=== PATIENT | female | born 1960 | race Caucasian/White ===

== ENCOUNTER → 2019-12-12 12:23 | Outpatient (BNVA) | payer MEDICARE, MEDICAID, SELFPAY | PROVIDERS: Family Provider Nurse Practitioner; PCP Nurse Practitioner; Visit Provider Nurse Practitioner | DX: E03.8 Other specified hypothyroidism (principal) | CPT/HCPCS: 84443 ==

== ENCOUNTER → 2020-02-24 11:55 | Outpatient (BNVA) | payer MEDICARE, MEDICAID, SELFPAY | PROVIDERS: Family Provider Nurse Practitioner; PCP Nurse Practitioner; Visit Provider Nurse Practitioner | DX: E03.8 Other specified hypothyroidism (principal); M79.7 Fibromyalgia; I25.110 Atherosclerotic heart disease of native coronary artery with unstable angina pectoris; K21.9 Gastro-esophageal reflux disease without esophagitis | CPT/HCPCS: 80053; 80061; 84443 ==

== ENCOUNTER 2020-03-12 11:01 | Emergency (ER) | payer MEDICARE, MEDICAID, SELFPAY ==
[2020-03-12 11:12] VITALS: BP 126/75; PULSE 78; RESP 16; TEMP 37.2; O2SAT 93; BMI 22.8
[2020-03-12 11:22] VITALS: O2SAT 91
--- NOTE | 2020-03-12 11:22 | PC.NURSE ---
During triage, pt desaturated to 83% on room air, states she does not wear oxygen at home.
--- NOTE | 2020-03-12 11:30 | XR_ITS ---
WS: [id number] Chest with left rib detail, 03/12/2020 Clinical Data: fall, hypoxia Comparison: Portable chest, 07/03/2019 Findings: The lungs show no nodules, masses, or effusions. The heart is normal. No pneumonia or pneumothorax is seen. There are bilateral pedicle screws and Hered[place] rods extending from T5 into the lumbar vertebral le geraldine. The ribs are intact. No rib fractures seen. No subcutaneous emphysema is present. There is a large of fecal material throughout the colon. XR/XR ribs LT mn 3V w CXR1V [id number] Impression: Negative chest with left rib detail.
--- NOTE | 2020-03-12 11:30 | XR_ITS ---
WS: [id number] Left hip, AP and frog leg views, 03/12/2020 Clinical Data: fall Comparison: AP pelvis, 01/09/2011 Findings: No fractures or dislocations are seen. The hip joint is intact. The soft tissues are not remarkable. The adjacent pelvis is normal. XR/XR hip LT 2-3V wo/w pel* [id number] Impression: Negative left hip.
--- NOTE | 2020-03-12 11:30 | XR_ITS ---
WS: [id number] Left knee, 3 views, 03/12/2020 Clinical Data: fall Comparison: None. Findings: No fractures or dislocations are seen. There is narrowing of the lateral joint compartment with small spurs of the lateral tibial plateau and lateral femoral condyle. The patella is intact. The soft tis sues are unremarkable. XR/XR knee LT 3V* [id number] Impression: Negative for left knee fracture.
--- NOTE | 2020-03-12 11:31 | ECG_ITS ---
Measurements Intervals [place] Rate: 73 P: 42 WI: 160 QRS: -2 QRSD: 83 T: 35 QT: 366 QTc: 404 SINUS RHYTHM Compared to ECG 07/03/2019 05:46:41 No significant changes Electronically Signed On 03-12-2020 19:44:13 CDT by Haydee Simms M.D. [id number]
--- NOTE | 2020-03-12 11:34 | ED_ITS ---
HPI - Extremity Problem General: Chief complaint: Extremity Injury, Lower Stated complaint: fall/left knee injury Time Seen by Provider: 03/12/20 11:13 History of Present Illness: HPI Narrative: Patient is a 59 year old female presenting with a fall yesterday afternoon at home. She was sitting down with her walker and her left arm gave out - causing her to fall onto her left side. She landed on her knee and then fell onto her hip and left side. She doesn't think that she hit her head. She denies difficulty breathing and doesn't think she hit her ribs but complains of pain in her left breast. Her O2 sat on triage was 83% although she denies feeling short of breath. She has a history of fibromyalgia and chronic pain and takes norco. She took her normal dose this morning, and did take an extra one last night when she went to bed. She sees an orthopedist in [place] - Dr. Mast. She has chronic hip problems. MD Complaint: extremity pain, extremity swelling, joint swelling and joint pain Onset (ago): day(s) (1) Pain Consistency: constant Location: left, upper extremity, lower extremity and knee Quality: aching and constant Radiation: none Relieving factors: nothing Exacerbating factors: range of motion, weight bearing and walking Associated symptoms: Reports chest pain; Deny short of breath Review of Systems General: Reports: 10 or more systems reviewed and unremarkable except in HPI and below Const: Reports: body aches (chronic due to fibromyalgia) Card: Reports: chest pain Resp: Denies: dyspnea, productive cough or non-productive cough GI: Denies: abdominal pain, nausea or vomiting Skin/Breast: Reports: breast pain Neuro: Reports: weakness in extremities (chronic, unchanged) and difficulty walking (chronic, more difficulty now since the fall); Denies: headache(s) PFS ED PFSH: Medical History Adult onset hypothyroidism 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 Fibromyalgia muscle pain Gastric reflux Hypotension, unspecified Mixed hyperlipidemia Neuropathic pain of both legs Osteopenia of multiple sites Vitamin D deficiency Surgical History History of back surgery History of cholecystectomy History of hysterectomy History of tonsillectomy Family History Other Arthritis Diabetes Hypertension Thyroid condition Social History Smoking and tobacco status: current every day smoker Second hand smoke exposure: Yes Smoking risk assessment/counseling performed?: No Alcohol intake: never Desire information about alcohol rehabilitation?: No Counseling given: No Desire information about substance/drug rehabilitation?: No Counseling given: No Lives independently: No Housing: House Marital status: Current occupational status: disabled History of recent travel: No Current gender identity: Female Physical Exam Const: COMMON NORMALS: no acute distress, average body habitus, patient oriented x3, no limitations and alert HENMT: COMMON NORMALS: atraumatic HEAD & SCALP: normal to inspection and atraumatic FACE & SINUS: normal facial exam Eye: GENERAL EYE: appearance normal, both eyes and all related structures Neck/C-Spine: COMMON NORMALS: full ROM, supple and no JVD Lymph: LYMPHATIC: No lymphedema Chest: CHEST: Yes localized rib tenderness with anteroposterior compression, Yes tenderness (left upper anterior and lateral ribs) rib and No Ecchymosis present BREAST/AXILLA INSPECTION: No abnormal inspection of the breast Resp: COMMON NORMALS: normal respiratory effort, No retractions, No use of accessory muscles, clear to auscultation bilaterally and percussion normal AUSCULTATION: clear to auscultation bilaterally PERCUSSION: percussion normal Cardio: COMMON NORMALS: no JVD, regular rate, regular rhythm and No murmurs present (Cardio) RATE: regular rate RHYTHM: regular rhythm GI: COMMON NORMALS: Normal to inspection, nondistended, normoactive bowel sounds present, Soft to palpation and non-tender PALPATION: Yes Soft to palpation Back/Pelvis: COMMON NORMALS: thoracic and lumbar spine normal to inspection Extremity: LEFT UPPER EXTREMITY: Yes shoulder joint Left shoulder joint: Yes ROM (normal) and Yes upper arm (abrasion, contusion mid humerus, laterally) LEFT LOWER EXTREMITY: Yes hip joint Left hip: Yes palpation (tender diffusely) and Yes ROM (normal - some pain, but patient notes chronic hip pain) and Yes knee joint (abrasion anterior knee - diffuse swelling down to the foot) Left knee: Yes ROM (painful, limited) and Yes neurovascular exam (can't palpate pulses, but warm foot, good cap refill) Neuro: COMMON NORMALS: patient oriented x3 SENSORIUM/ORIENTATION: Yes alert Course ED course: Patient presenting for a fall at home. She has pain in her left knee, left hip, left humeral area. She also has pain and tenderness on the left side of her chest. Because of the chest pain EKG, troponin, chest x-ray were done. There is no sign of fracture or cardiac ischemia. She was hypoxic on room air with a sat of 83%. Throughout her stay I tried turning off the oxygen and she again dropped into the 80s. During these episodes she denied any dyspnea. I tried to order a VQ scan to look for possible blood clot as she has been complaining about leg swelling. She refused this stating that she does not feel short of breath and does not want any more testing. She repeated back to me that I was concerned that she had a low oxygen level without a good explanation for it. She repeated back to me that she understood she could go home and from this. She continued to not want any testing. She is alert and competent to make her own decisions. She signed out AGAINST MEDICAL ADVICE. She also understands that she is welcome to return at any time. Vital Signs: Vital signs: Vital Signs Temperature 98.9 F 03/12/20 11:12 Pulse Rate 77 03/12/20 14:58 Respiratory Rate 18 03/12/20 14:58 Blood Pressure 105/71 03/12/20 14:58 Pulse Oximetry 94 03/12/20 14:58 MDM - Extremity (Nontraumatic) Lab Data: Labs: Lab Results 03/12/20 03/12/20 03/12/20 Range/Units 11:43 11:43 11:43 WBC 8.7 (4.0-10.0) 10^3/ uL RBC 4.52 (4.1-5.3) 10^6/u L Hgb 13.2 (11.5-15.3) g/dL Hct 42.9 (37.0-47.0) % MCV 94.9 (81-99) fL MCH 29.2 (28.0-34.0) pg MCHC 30.8 (30.0-36.0) g/dL RDW 15.1 (12.1-15.1) % Plt Count 211 (130-400) 10^3/c mm MPV 10.8 H (7.4-10.4) fL Neut % (Auto) 74.2 % Lymph % (Auto) 15.2 % [place] % (Auto) 8.9 % Eos % (Auto) 0.9 % Baso % (Auto) 0.5 % Neut # (Auto) 6.5 (1.8-7.7) 10^3/u L Lymph # (Auto) 1.3 (0.8-4.8) 10^3/u L [place] # (Auto) 0.8 (0.2-0.9) 10^3/u L Eos # (Auto) 0.1 (0.0-0.8) 10^3/u L Baso # (Auto) 0.0 (0.0-0.1) 10^3/u L Nucleated RBC % (a uto) 0 % Nucleated RBCs # 0.0 /100WBC Sodium 138 (136-145) mmol/L Potassium 4.8 (3.5-5.1) mmol/L Chloride 102 (98-107) mmol/L Carbon Dioxide 25 (22-29) mmol/L Anion Gap 15.8 (5-19) BUN 15 (6-20) mg/dL Creatinine 0.8 (0.5-0.9) mg/dL GFR Calculation 73.7 L (90-130) mL/min Glucose 88 (65-115) mg/dL Calculated Osmolal ity 282 L (285-295) mOsm/k g Calcium 8.7 (8.5-10.5) mg/dL Total Bilirubin 0.4 (0.15-1.2) mg/dL AST 25 (0-32) U/L ALT 13 (0-33) U/L Alkaline Phosphata se 48 (35-105) IU/L Troponin T Baselin e 23 H (0-10) ng/mL Total Protein 6.2 L (6.6-8.7) g/dL Albumin 3.8 (3.5-5.2) g/dL Globulin 2.4 (1.3-4.6) g/dL EKG Data^: EKG 1: EKG interpretation date: 05/18/20 EKG interpretation time: 12:04 Interpretation: NSR 73, no ST changes, normal intervals and axis Discharge Plan Discharge Patient Disposition: Left Against Medical Advice Clinical Impression: Hypoxia Contusion of knee, left Qualifiers: Encounter type: initial encounter Qualified Code(s): S80.02XA - Contusion of left knee, initial encounter Contusion of left arm Qualifiers: Encounter type: initial encounter Qualified Code(s): S40.022A - Contusion of left upper arm, initial encounter Condition: Stable Prescriptions: No Action gabapentin 800 mg tablet 800 mg PO TID RF: 0 meclizine 12.5 mg tablet 12.5 mg PO BID PRN (Reason: unknown) RF: 0 potassium chloride 10 mEq capsule, extended release 10 meq PO DAILY RF: 0 magnesium oxide 250 mg magnesium tablet 250 mg PO DAILY RF: 0 hydrocodone-acetaminophen 10-325 mg tablet 1 tab PO Q4H PRN (Reason: Pain) RF: 0 cholecalciferol (vitamin D3) 1,000 unit capsule 1,000 unit PO DAILY RF: 0 baclofen 10 mg tablet 20 mg PO QID PRN (Reason: Spasms) RF: 0 fentanyl 75 mcg/hr patch 72 hour 1 patch TRANSDERMA Q72H RF: 0 diphenhydramine HCl [Benadryl Allergy] 25 mg tablet 75 mg PO BID PRN (Reason: unknown) RF: 0 levothyroxine 50 mcg tablet 50 mcg PO DAILY Qty: 30 RF: 0 paroxetine HCl 20 mg tablet 20 mg PO DAILY Qty: 30 RF: 0 carvedilol 3.125 mg tablet 3.125 mg PO BID Qty: 60 RF: 0 furosemide 20 mg tablet 20 mg PO QAM Qty: 30 RF: 5 fenofibrate micronized 134 mg capsule 134 mg PO DAILY Qty: 90 RF: 0 cyanocobalamin (vitamin B-12) 1,000 mcg/mL solution See Rx Instructions .ROUTE .COMPLEX RF: 0 Fiorinal 50-325-40 mg capsule 1 cap PO PRN RF: 0 potassium gluconate 595 mg (99 mg) Tablet 595 mg PO TID RF: 0 Discharge Orders: Discharge Order (Routine); Ordered 03/12/20 Ordered By: Serena Das Referrals: Hitesh Pal, [facility] [Primary Care Provider] - Discharge Diet: Usual diet Discharge Activity: Resume usual activity Patient Instructions: Hypoxia (ED) Activity Restrictions/Additional Instructions: Please return to the ED if you have shortness of breath or any other new or concerning symptoms. Discharge Date/Time: 03/12/20 14:59 Coding Level of Care Code ED [place] [employer] for Antonia Medina Exam Comprehensive
[2020-03-12 11:48] LABS: Basophils % 0.5 %; Eosinophils # 0.1 10^3/uL (0.0-0.8); Eosinophils % 0.9 %; Hematocrit 42.9 % (37.0-47.0); Hemoglobin 13.2 g/dL (11.5-15.3); Lymphocytes # 1.3 10^3/uL (0.8-4.8); Lymphocytes % 15.2 %; Mean Corpuscular HGB Conc 30.8 g/dL (30.0-36.0); Mean Corpuscular Hemoglobin 29.2 pg (28.0-34.0); Mean Corpuscular Volume 94.9 fL (81-99); Mean Platelet Volume 10.8 fL (7.4-10.4); Monocytes # 0.8 10^3/uL (0.2-0.9); Monocytes % 8.9 %; Neutrophils # 6.5 10^3/uL (1.8-7.7); Neutrophils % 74.2 %; Nucleated Red Blood Cells % 0 %; Platelet Count 211 10^3/cmm (130-400); Red Blood Count 4.52 10^6/uL (4.1-5.3); Red Cell Distribution Width 15.1 % (12.1-15.1); White Blood Count 8.7 10^3/uL (4.0-10.0)
[2020-03-12 12:12] LABS: Alanine Aminotransferase 13 U/L (0-33); Albumin Level 3.8 g/dL (3.5-5.2); Alkaline Phosphatase 48 IU/L (35-105); Anion Gap 15.8 (5-19); Blood Urea Nitrogen 15 mg/dL (6-20); Calcium 8.7 mg/dL (8.5-10.5); Carbon Dioxide 25 mmol/L (22-29); Chloride 102 mmol/L (98-107); Globulin 2.4 g/dL (1.3-4.6); Glomerular Filtration Rate 73.7 mL/min (90-130); Glucose 88 mg/dL (65-115); Osmolality Calculated 282 mOsm/kg (285-295); Potassium 4.8 mmol/L (3.5-5.1); Sodium 138 mmol/L (136-145); Total Bilirubin 0.4 mg/dL (0.15-1.2); Total Protein 6.2 g/dL (6.6-8.7)
[2020-03-12 12:14] LABS: Troponin(5th) Baseline 23 ng/mL (0-10)
[2020-03-12 12:28] LABS: Aspartate Amino Transferase 25 U/L (0-32)
[2020-03-12 14:58] VITALS: BP 105/71; PULSE 77; RESP 18; O2SAT 94
--- NOTE | 2020-03-12 17:31 | ECG_ITS ---
Measurements Intervals [place] Rate: 73 P: 47 MD: 152 QRS: -11 QRSD: 85 T: 39 QT: 372 QTc: 412 SINUS RHYTHM POSSIBLE INFERIOR MYOCARDIAL INFARCTION , PROBABLY OLD [30 ms Q WAVE IN II/aVF] Compared to ECG 07/03/2019 05:46:41 Myocardial infarct finding now present Electronically Signed On 03-12-2020 20:16:59 CDT by Haydee Simms M.D. [id number]
== END 2020-03-12 14:59 | disposition left against medical advice (07) ==
PROVIDERS: Emergency Provider Emergency Medicine; PCP Nurse Practitioner
DX: S80.02XA Contusion of left knee, initial encounter (principal); S40.022A Contusion of left upper arm, initial encounter; R09.02 Hypoxemia; Z53.21 Procedure and treatment not carried out due to patient leaving prior to being seen by health care provider; I25.110 Atherosclerotic heart disease of native coronary artery with unstable angina pectoris; E78.2 Mixed hyperlipidemia; F17.210 Nicotine dependence, cigarettes, uncomplicated; W19.XXXA Unspecified fall, initial encounter
CPT/HCPCS: 12345; 36415; 71101; 73502; 73562; 80053; 84484; 85025; 93005; 99281; 99283

== ENCOUNTER 2020-05-18 14:41 | Outpatient (CLI) | payer MEDICARE, MEDICAID, SELFPAY ==
--- NOTE | 2020-05-18 15:00 | CT_ITS ---
WS: [id number] CT SINUSES TECHNIQUE: Noncontrast CT of the paranasal sinuses with coronal and sagittal reformatted images. CLINICAL INFORMATION: nasal congestion COMPARISON: None. DLP: 361.[address] scans at [facility] use at least one of these dose optimization techniques: automat ed exposure control; mA and/or kV adjustment per patient size (includes targeted exams where dose is matched to clinical indication); or iterative reconstruction. FINDINGS: Mild left to right nasal septal deviation measuring 4 mm. Paranasal sinuses are well aerated. Trace m ucosal thickening along the ostiomeatal units bilaterally. Mild narrowing of the infundibulum bilater ally. Small left greater than right stef bullosa. Frontal sinuses are well aerated. Mild mucosal th ickening ethmoid air cells. Sphenoid sinuses are well aerated. Mastoid air cells are well aerated. Partially visualized intracranial contents are normal. Normal posterior nasopharynx. CT/CT sinus wo con* [id number] IMPRESSION: 1. Paranasal sinuses are well aerated. 2. Mild narrowing of the ostiomeatal units with mild mucosal thickening. 3. Mild left to right nasal septal deviation.
--- NOTE | 2020-05-18 15:15 | CT_ITS ---
WS: [id number] CT HEAD TECHNIQUE: Noncontrast CT of the head obtained from the skullbase to the vertex. CLINICAL INFORMATION: right skull pain COMPARISON: CT 9 801 DLP: 992.[address] scans at use at least one of these dose optimization techniques: automat ed exposure control; mA and/or kV adjustment per patient size (includes targeted exams where dose is matched to clinical indication); or iterative reconstruction. FINDINGS: No evidence of intracranial hemorrhage or mass effect. Ventricular system and basal cisterns are goodson nt. Mild small vessel changes with mild parenchymal volume loss. No extra-axial fluid collections. No evidence of mass or mass effect. Normal draper-white differentiation. Paranasal sinuses and mastoid air cells are well aerated. .Normal visualized soft tissues. CT/CT head wo con* [id number] IMPRESSION: 1. No evidence of intracranial hemorrhage or mass effect. 2. Mild small vessel changes. Mild parenchymal volume loss. 3. Mild lobulation along the parietal calvarium likely corresponds to palpable findings. This is benign and incidental 4. No acute intracranial findings.
== END 2020-05-18 14:42 | disposition home or self-care (01) ==
LOC: RADWPI 14:45
PROVIDERS: PCP Nurse Practitioner; Visit Provider Nurse Practitioner
DX: R51 Headache (principal); R09.81 Nasal congestion; J34.2 Deviated nasal septum
CPT/HCPCS: 70450; 70486

== ENCOUNTER 2020-08-08 14:25 | Outpatient (CLI) | payer MEDICARE, MEDICAID, SELFPAY ==
--- NOTE | 2020-08-08 14:45 | CT_ITS ---
WS: [id number] CT CERVICAL SPINE TECHNIQUE: Noncontrast CT of the cervical spine with coronal and sagittal reformatted images. CLINICAL INFORMATION: Neck and upper back pain COMPARISON: None. DLP: 1355.[address] scans at [facility] use at least one of these dose optimization techniques: automat ed exposure control; mA and/or kV adjustment per patient size (includes targeted exams where dose is matched to clinical indication); or iterative reconstruction. FINDINGS: Exaggeration of the normal cervical lordosis. Normal C1-2 articulation. Mild pannus formation at the cranial cervical junction. No high-grade central canal stenosis. Disc bulging worse at C5-C6 and C6-C 7. C2-C3: Normal. C3-C4: Normal. C4-C5: Mild disc osteophytic ridging. Mild left and no significant right foraminal narrowing. Mild fa cet arthropathy. C5-C6: Disc osteophyte complex with endplate ridging. Moderate facet arthropathy. Moderate to severe left and moderate right bony foraminal narrowing. Mild central canal stenosis. C6-C7: Left pericentral shallow protrusion. Mild central canal stenosis. Mild left and no significant right foraminal narrowing. Mastoid air cells are well aerated. Normal visualized soft tissues. C7-T1: No significant disc bulging. Spinal canal and foramen are patent. Visualized posterior nasopharynx: Normal. Prevertebral soft tissues: Normal. CT/CT cervical spin wo con* [id number] IMPRESSION: 1. Exaggeration of the normal cervical lordosis. 2. Mild central canal stenosis C5-C6 and C6-C7 3. Moderate to severe left C5-C6 and moderate right bony foraminal narrowing. 4. Tiny left pericentral protrusion C6-7 with mild central canal stenosis and mild left foraminal narrowing. 5. Mild to moderate facet arthropathy C4-C5 and C5-C6.
== END 2020-08-08 14:26 | disposition home or self-care (01) ==
LOC: RADWPI 14:28
PROVIDERS: PCP Nurse Practitioner; Visit Provider Nurse Practitioner
DX: M62.838 Other muscle spasm (principal); M48.02 Spinal stenosis, cervical region; M12.88 Other specific arthropathies, not elsewhere classified, other specified site
CPT/HCPCS: 72125

== ENCOUNTER 2020-10-13 12:05 | Emergency (ER) | payer MEDICARE, MEDICAID, SELFPAY ==
[2020-10-13 12:10] VITALS: BP 158/90; PULSE 72; RESP 18; TEMP 36.9; O2SAT 97; BMI 22.5
[2020-10-13] MEDS: sodium chloride 0.9% 1,000 ML 999 ML IV (13:16)
--- NOTE | 2020-10-13 13:20 | W.ED.DIZZY ---
HPI - Dizziness General: Chief Complaint: Dizziness Stated Complaint: STATES HAS PRESSURE ON HER SKULL Time Seen by Provider: 10/13/20 12:28 History of Present Illness: HPI Narrative: 60-year-old female presents to the emergency room with complaints of head pressure and dizziness. Initially she states been going last 3 days but is actually been going on for the last 6 months intermittently she has some blurring of vision in her right eye as well. She has been seen by this by the nurse practitioner she usually sees and has had a CT of her head early on which was negative. MD elicited complaint: dizziness and lightheadedness Onset (ago): month(s) Timing: gradual onset Severity: moderate Description: sense of movement, lightheadedness and off-balance History of similar symptoms: Yes Exacerbating factors: change in body position Relieving factors: remaining still Associated symptoms: Denies change in hearing, chest pain, chills, cough, diaphoresis, ear discharge, ear pressure, fevers/chills, headache(s), malaise, nausea, nasal congestion, palpitations, rash, short of breath, syncope, tinnitus, vomiting or weakness Associated neuro symptoms: Deny confusion, difficulty speaking, dysphagia, diplopia, extremity weakness, facial numbness, facial weakness, gait changes, numbness in extremities or visual changes Review of Systems Const: Denies: chills, malaise or diaphoresis ENMT: Denies: ear discharge, change in hearing, tinnitus or nasal congestion Card: Denies: chest pain, palpitations or syncope GI: Denies: nausea, vomiting or dysphagia Neuro: Denies: headache(s), numbness in extremities or confusion PFSH ED PFSH: Medical History Adult onset hypothyroidism Chronic bilateral low back pain with bilateral 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 Essential (primary) hypertension Fibromyalgia muscle pain Gastric reflux Hypotension, unspecified Mixed hyperlipidemia Neuropathic pain of both legs Osteopenia of multiple sites Vitamin B12 deficiency Vitamin D deficiency Surgical History History of back surgery History of cholecystectomy History of hysterectomy History of tonsillectomy Family History Other Arthritis 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 Diabetes Hypertension Thyroid condition Social History Smoking and tobacco status: current every day smoker Second hand smoke exposure: Yes Smoking risk assessment/counseling performed?: Yes Alcohol intake: never Desire information about alcohol rehabilitation?: No Counseling given: No Desire information about substance/drug rehabilitation?: No Counseling given: No Adopted: No Caregiver/support person: Yes Lives independently: No Household members: family Housing: House Marital status: service: No Current occupational status: disabled History of recent travel: No Current gender identity: Female Physical Exam Const: COMMON NORMALS: no acute distress GENERAL APPEARANCE: cooperative and comfortable ORIENTATION/CONSCIOUSNESS: Yes awake, Yes oriented to person, Yes oriented to place and Yes oriented to time HENMT: COMMON NORMALS: normocephalic, atraumatic and hearing grossly normal bilaterally HEAD & SCALP: normocephalic and atraumatic Neck/C-Spine: COMMON NORMALS: no JVD Resp: COMMON NORMALS: normal respiratory effort, No retractions, No use of accessory muscles and clear to auscultation bilaterally AUSCULTATION: clear to auscultation bilaterally Cardio: COMMON NORMALS: no JVD, regular rate, regular rhythm and No murmurs present (Cardio) RATE: regular rate RHYTHM: regular rhythm GI: COMMON NORMALS: Soft to palpation and No hepatosplenomegaly present AUSCULTATION: Yes normoactive bowel sounds PALPATION: Yes Soft to palpation, No Tenderness to palpation present (GI), No Guarding due to palpation present (GI) and Yes No hepatosplenomegaly present Neuro: SENSORIUM/ORIENTATION: Yes oriented to person, Yes oriented to place and Yes oriented to time Skin: COMMON NORMALS: no rashes or lesions noted GENERAL SKIN EXAM: no rashes or lesions noted Course Vital Signs: Vital signs: Vital Signs Temperature 98.4 F 10/13/20 12:10 Pulse Rate 100 10/13/20 16:24 Respiratory Rate 19 H 10/13/20 16:24 Blood Pressure 153/82 10/13/20 16:24 Pulse Oximetry 92 10/13/20 16:24 MDM - Dizziness MDM Narrative: Medical decision making narrative: Patient has had this issue for months patient reports almost 6 months. She has dizziness and sometimes some visual disturbances. She presented saying she wanted a second opinion. She declined to allow us to do some of the testing we recommended. Evaluation in the emergency room is incomplete does not appear she has an acute neurologic event going on at this time will refer her to neurology as an outpatient. Lab Data: Labs: Lab Results 10/13/20 10/13/20 Range/Units 13:10 13:10 WBC 5.3 (4.0-10.0) 10^3/ uL RBC 5.00 (4.1-5.3) 10^6/u L Hgb 14.9 (11.5-15.3) g/dL Hct 47.5 H (37.0-47.0) % MCV 95.0 (81-99) fL MCH 29.8 (28.0-34.0) pg MCHC 31.4 (30.0-36.0) g/dL RDW 14.0 (12.1-15.1) % Plt Count 190 (130-400) 10^3/c mm MPV 11.9 H (7.4-10.4) fL Neut % (Auto) 63.0 % Lymph % (Auto) 26.5 % [place] % (Auto) 8.6 % Eos % (Auto) 1.3 % Baso % (Auto) 0.4 % Neut # (Auto) 3.36 (1.8-7.7) 10^3/u L Lymph # (Auto) 1.4 (0.8-4.8) 10^3/u L [place] # (Auto) 0.5 (0.2-0.9) 10^3/u L Eos # (Auto) 0.1 (0.0-0.8) 10^3/u L Baso # (Auto) 0.0 (0.0-0.1) 10^3/u L Nucleated RBC % (a uto) 0 % Nucleated RBCs # 0.0 /100WBC Sodium 137 (136-145) mmol/L Potassium 4.1 (3.5-5.1) mmol/L Chloride 100 (98-107) mmol/L Carbon Dioxide 30 H (22-29) mmol/L Anion Gap 11.1 (5-19) BUN 14 (6-20) mg/dL Creatinine 0.7 (0.5-0.9) mg/dL GFR Calculation 85.6 L (90-130) mL/min Glucose 79 (65-115) mg/dL Calculated Osmolal ity 283 L (285-295) mOsm/k g Calcium 9.4 (8.5-10.5) mg/dL Magnesium 2.0 (1.7-2.3) mg/dL Total Bilirubin 0.3 (0.15-1.2) mg/dL AST 23 (0-32) U/L ALT 14 (0-33) U/L Alkaline Phosphata se 63 (35-105) IU/L Creatine Kinase 33 (26-192) U/L Total Protein 6.6 (6.6-8.7) g/dL Albumin 4.0 (3.5-5.2) g/dL Globulin 2.6 (1.3-4.6) g/dL TSH 1.18 (0.27-4.20) uIU/ mL Discharge Plan Discharge Patient Disposition: Home Clinical Impression: Dizziness, Essential (primary) hypertension, Alteration in vision Condition: Stable Prescriptions: New meclizine 25 mg tablet 25 mg PO QID PRN (Reason: dizziness) Qty: 30 RF: 0 No Action gabapentin 800 mg tablet 800 mg PO TID@08,15,22 RF: 0 meclizine 12.5 mg tablet 12.5 mg PO BID PRN (Reason: unknown) RF: 0 magnesium oxide 250 mg magnesium tablet 250 mg PO DAILY@1500 RF: 0 hydrocodone-acetaminophen 10-325 mg tablet 1 tab PO Q4H PRN (Reason: Pain) RF: 0 cholecalciferol (vitamin D3) 1,000 unit capsule 1,000 unit PO DAILY@0800 RF: 0 baclofen 10 mg tablet 20 mg PO QID PRN (Reason: Spasms) RF: 0 fentanyl 75 mcg/hr patch 72 hour 1 patch TRANSDERMA Q72H RF: 0 diphenhydramine HCl [Benadryl Allergy] 25 mg tablet 75 mg PO BID PRN (Reason: unknown) RF: 0 cyanocobalamin (vitamin B-12) 1,000 mcg/mL solution See Rx Instructions .ROUTE .COMPLEX Qty: 1 RF: 8 (DME) BD Luer-Rae Syringe 3 mL 25 gauge x 1 syringe See Rx Instructions .ROUTE .MEDSUPPLY Qty: 5 RF: 0 carvedilol 3.125 mg tablet 3.125 mg PO BID@0800,2200 RF: 0 fenofibrate micronized 134 mg capsule 134 mg PO DAILY@0800 RF: 0 furosemide 20 mg tablet 20 mg PO DAILY@0800 RF: 0 Flonase Allergy Relief 50 mcg/actuation spray,suspension 2 spray INTRANASAL DAILY@2000 RF: 0 levothyroxine 50 mcg tablet 50 mcg PO DAILY@1500 RF: 0 paroxetine HCl 30 mg tablet 30 mg PO DAILY@0800 RF: 0 Benicar 20 mg tablet 20 mg PO DAILY@0800 RF: 0 rgvwqfqmcl-[id number]-ayzztppu [Fiorinal] 50-325-40 mg capsule 1 cap PO PRN RF: 0 potassium gluconate 595 mg (99 mg) Tablet 595 mg PO TID@08,15,22 RF: 0 Discharge Orders: Discharge ED (Routine); Ordered 10/13/20 Ordered By: Juancarlos Robles Referrals: Gloria Mei MD [Physician] - (Dizziness with visual disturbances intermittently 6 months) Activity Restrictions/Additional Instructions: Your evaluated for dizziness and visual changes. Evaluation today was incomplete since you declined some test. Will refer you to neurology for further evaluation as an outpatient. You were given meclizine to use as needed to alleviate symptoms. You should follow-up with your primary care doctor to reevaluate your blood pressure as an outpatient. Coding Level of Care Code ED Business Solution Analyst for Chg Fwd Exam Detailed
--- NOTE | 2020-10-13 13:21 | CTR_ITS ---
PROCEDURE INFORMATION: Exam: CT Head Without Contrast Exam date and time: 10/13/2020 1:43 PM Age: 60 years old Clinical indication: Other: Visual distubance; Prior surgery TECHNIQUE: Imaging protocol: Computed tomography of the head without contrast. Radiation optimization: All CT scans at this facility use at least one of these dose optimization techniques: automated exposure control; mA and/or kV adjustment per patient size (includes targeted exams where dose is matched to clinical indication); or iterative reconstruction. COMPARISON: CT head wo con* [id number] 05/18/2020 3:18 PM RADIATION DOSE METRICS: Total DLP (mGy-cm): 872.9 FINDINGS: Brain: Mild volume loss and white matter disease are identified. There is no acute infarct or edema. No hemorrhage. Cerebral ventricles: No ventriculomegaly. Bones/joints: Unremarkable. No acute fracture. Paranasal sinuses: Visualized sinuses are unremarkable. No fluid levels. Mastoid air cells: Visualized mastoid air cells are well aerated. Soft tissues: Unremarkable. CT/CT head wo con* [id number] IMPRESSION: There are no acute concerning abnormalities. Radiation Dose CTDIVOL = (mGy): DLP = 872.9 (mGy-cm)
[2020-10-13 13:29] VITALS: BP 158/87; PULSE 66; RESP 20; O2SAT 98
--- NOTE | 2020-10-13 13:29 | XRR_ITS ---
PROCEDURE INFORMATION: Exam: XR Chest, 1 View Exam date and time: 10/13/2020 1:49 PM Age: 60 years old Clinical indication: Cough; Additional info: Dyspnea/cough TECHNIQUE: Imaging protocol: XR of the chest Views: 1 view. COMPARISON: CR XR ribs LT mn 3V w CXR1V [id number] 03/12/2020 12:23 PM FINDINGS: Lungs: Unremarkable. No consolidation. Pleural space: Unremarkable. No pleural effusion. No pneumothorax. Heart/Mediastinum: Unremarkable. No cardiomegaly. Bones/joints: There are posterior fusion rods in the thoracic spine. XR/XR chest 1V portable [id number] IMPRESSION: There are no acute concerning abnormalities.
[2020-10-13 13:30] VITALS: BP 147/80; BP 156/87; BP 157/89; PULSE 67; PULSE 69; PULSE 70
[2020-10-13 14:30] LABS: Basophils % 0.4 %; Eosinophils # 0.1 10^3/uL (0.0-0.8); Eosinophils % 1.3 %; Hematocrit 47.5 % (37.0-47.0); Hemoglobin 14.9 g/dL (11.5-15.3); Lymphocytes # 1.4 10^3/uL (0.8-4.8); Lymphocytes % 26.5 %; Mean Corpuscular HGB Conc 31.4 g/dL (30.0-36.0); Mean Corpuscular Hemoglobin 29.8 pg (28.0-34.0); Mean Platelet Volume 11.9 fL (7.4-10.4); Monocytes # 0.5 10^3/uL (0.2-0.9); Monocytes % 8.6 %; Neutrophils # 3.36 10^3/uL (1.8-7.7); Nucleated Red Blood Cells % 0 %; Platelet Count 190 10^3/cmm (130-400); White Blood Count 5.3 10^3/uL (4.0-10.0)
[2020-10-13 15:06] LABS: Alanine Aminotransferase 14 U/L (0-33); Alkaline Phosphatase 63 IU/L (35-105); Anion Gap 11.1 (5-19); Aspartate Amino Transferase 23 U/L (0-32); Blood Urea Nitrogen 14 mg/dL (6-20); Calcium 9.4 mg/dL (8.5-10.5); Carbon Dioxide 30 mmol/L (22-29); Chloride 100 mmol/L (98-107); Creatine Phosphokinase 33 U/L (26-192); Globulin 2.6 g/dL (1.3-4.6); Glomerular Filtration Rate 85.6 mL/min (90-130); Glucose 79 mg/dL (65-115); Osmolality Calculated 283 mOsm/kg (285-295); Potassium 4.1 mmol/L (3.5-5.1); Sodium 137 mmol/L (136-145); Thyroid Stimulating Hormone 1.18 uIU/mL (0.27-4.20); Total Bilirubin 0.3 mg/dL (0.15-1.2); Total Protein 6.6 g/dL (6.6-8.7)
[2020-10-13 15:29] VITALS: BP 153/82; PULSE 100; RESP 19; O2SAT 92
[2020-10-13 16:24] VITALS: BP 153/82; PULSE 100; RESP 19; O2SAT 92
[2020-10-13 18:28] LABS: Free T4 Free Thyroxine 1.45 ng/dL (0.82-1.77)
== END 2020-10-13 16:24 | disposition home or self-care (01) ==
PROVIDERS: Emergency Provider Family Medicine; PCP Nurse Practitioner
DX: R42 Dizziness and giddiness (principal); H53.9 Unspecified visual disturbance; I10 Essential (primary) hypertension; I25.110 Atherosclerotic heart disease of native coronary artery with unstable angina pectoris; E78.2 Mixed hyperlipidemia; F17.210 Nicotine dependence, cigarettes, uncomplicated
CPT/HCPCS: 12345; 70450; 71045; 80053; 82550; 83735; 84439; 84443; 85025; 96361; 96374; 99283; 99284; J2405; J7030

== ENCOUNTER → 2020-10-17 11:07 | Outpatient (BNVA) | payer MEDICARE, MEDICAID, SELFPAY | PROVIDERS: PCP Nurse Practitioner; Visit Provider Nurse Practitioner | DX: I10 Essential (primary) hypertension (principal) | CPT/HCPCS: 80053; 80061; 84443 ==

== ENCOUNTER 2021-01-21 11:46 | Outpatient (CLI) | payer MEDICARE, MEDICAID, SELFPAY ==
--- NOTE | 2021-01-21 12:00 | MM_ITS ---
WS: [id number] BILATERAL SCREENING DIGITAL MAMMOGRAM WITH CAD HISTORY: Z12.39 - Encounter for other screening for malignant neoplasm of breast COMPARISON: 11/19/2016 and 11/02/2012 and 10/23/2016 Bilateral CC and MLO views submitted. Computer aided detection analyzed. Breast composition: There are scattered areas of fibroglandular density. No suspicious masses, microc alcifications or architectural distortion. Asymmetry in the anterior LEFT breast has been stable over multiple years. There is a soft tissue nodule measuring 1 cm the central calcification in the upper- outer quadrant of the LEFT breast which is also stable. Benign calcification RIGHT breast. MM/[place] [id number] IMPRESSION: BI-RADS: 2-Benign FOLLOW UP: 1 Year Follow-up
--- NOTE | 2021-01-21 12:30 | US_ITS ---
WS: [id number] THYROID ULTRASOUND (TI-RADS CRITERIA) History: Thyroid nodules. Technique: Ultrasound examination of the thyroid and adjacent soft tissues is performed. COMPARISON: 10/04/2015 FINDINGS: Right lobe: 4.2 cm x 1.3 cm x 1.1 cm. Volume: 2.9 cm3. Normal size gland. Several small hypoechoic nodules which are probably colloid cysts. The largest wit h a maximum diameter 4 mm. There are no suspicious nodules for which follow-up should be performed. Left lobe: 4.4 cm x 1.4 cm x 1.4 cm. Volume: 4.5 cm3. Normal size and echotexture. No significant or dominant nodules are present. Heterogeneously area in the inferior gland. NODULE: 1 Size: 1.2 x 0.9 x 1.3 cm Location: Mid LEFT Composition: Solid/almost completely solid (2) Echogenicity: Anechoic (0) Shape: Not taller than wide (0) Margins: Smooth (0) Echogenic foci: None (0) ACR TI-RADS total points: 2 ACR TI-RADS risk category: TR2 Isthmus: 0.2 cm. US/US thyroid [id number] Impression: TR2 Recommendation:No FNA or follow-up. Dominant nodule in LEFT thyroid is been present since at least 2013 without sig nificant increase in size. Yearly ultrasound evaluation can be performed. No FN A necessary at this time.
== END 2021-01-21 11:47 | disposition home or self-care (01) ==
LOC: RADSHAW 11:52
PROVIDERS: PCP Nurse Practitioner; Visit Provider Nurse Practitioner
DX: Z12.31 Encounter for screening mammogram for malignant neoplasm of breast (principal); E03.8 Other specified hypothyroidism; E04.1 Nontoxic single thyroid nodule
CPT/HCPCS: 76536; 77067

== ENCOUNTER → 2021-02-07 13:38 | Outpatient (BNVA) | payer MEDICARE, MEDICAID, SELFPAY | PROVIDERS: PCP Nurse Practitioner; Referring Provider Nurse Practitioner; Visit Provider Orthopaedic Surgery | DX: M54.42 Lumbago with sciatica, left side (principal); M54.41 Lumbago with sciatica, right side; G89.29 Other chronic pain; M41.9 Scoliosis, unspecified; T84.216A Breakdown (mechanical) of internal fixation device of vertebrae, initial encounter | CPT/HCPCS: 72070; 72100 ==

== ENCOUNTER 2021-02-28 13:41 | Outpatient (CLI) | payer MEDICARE, MEDICAID, SELFPAY ==
--- NOTE | 2021-02-28 14:00 | CT_ITS ---
WS: [id number] CT CERVICAL SPINE HISTORY: Z96.7 - Presence of other bone and tendon implants TECHNIQUE: Contiguous 2.5 mm axial imaging performed through the entire cervical spine. Sagittal and coronal reformats also performed. All CT scans at [facility] use at least one of these do se optimization techniques: automated exposure control; mA and/or kV adjustment per patient size (inc ludes targeted exams where dose is matched to clinical indication); or iterative reconstruction. DLP: 1355.52 mGy-cm. COMPARISON: 08/08/2020 Slight increase in the cervical lordosis. Less than 2 mm retrolisthesis of C2, C3 and C4. Mild disc s pace narrowing with desiccation at C5-6. No fractures. Facet joints are normally aligned. LEFT curvature of the cervical spine. C2-C3: Normal. C3-C4: Normal. C4-C5: Very minimal narrowing of the foramen. No significant stenosis. C5-C6: Mild osteophytic ridging with a shallow broad-based disc protrusion. Mild central and moderate LEFT foraminal stenosis. Moderate RIGHT foraminal stenosis. C6-C7: Shallow central disc protrusion with no stenosis. C7-T1: Normal. Soft tissues are normal. Lung apices are clear. CT/CT cervical spin wo con* [id number] IMPRESSION: 1. Increased cervical lordosis and LEFT scoliosis. Similar to the prior study. 2. No significant progression of stenosis since the prior study. 3. Mild central with moderate bilateral foraminal stenosis at C5-6. 4. Moderate degenerative disc disease at C5-6 with endplate osteophytes. No fr actures.
--- NOTE | 2021-02-28 14:15 | CT_ITS ---
WS: [id number] CT THORACIC SPINE HISTORY: Z96.7 - Presence of other bone and tendon implants TECHNIQUE: Contiguous 2.5 mm axial images are reviewed to thoracic spine. Images are reformatted in s agittal and coronal planes. All CT scans at [facility] use at least one of these dose opt imization techniques: automated exposure control; mA and/or kV adjustment per patient size (includes targeted exams where dose is matched to clinical indication); or iterative reconstruction. DLP: 1268.31 mGycm COMPARISON: MRI of thoracic spine 08/28/2017. CT thoracic spine 01/22/2017. Long segment bilateral pedicle screw and froylan fixation beginning at the T5 level noted extending into the lumbosacral region. There is a fracture noted on the localizer involving the RIGHT vertical froylan a t the L2-3 disc level. The RIGHT pedicle screw at T5 extends through the very superior endplate of T5 . There is a RIGHT T7 pedicle screw. No additional thoracic right-sided pedicle screws. Pedicle screw s on the LEFT at T5, T6 and T7. Bilateral posterior laminectomy defects extending from T7 to T12. There is increased lucency around the T5 pedicle screws bilaterally and also the RIGHT T7 pedicle scr ew. Similar to the prior study. There is extensive beam hardening artifact throughout the thoracic spine. No evidence for significant central or foraminal stenosis taking into consideration the limitations of this examination by the philip jimenez. There is significant RIGHT rotoscoliosis of the lumbar spine centered near the upper lumbar vertebral bodies. CT/CT thoracic spin wo con* [id number] IMPRESSION: 1. Severe thoracolumbar scoliosis. Rotoscoliosis centered near the upper lumba r vertebral bodies. 2. Extensive froylan and pedicle screw fixation from T5 into the lumbosacral spine . 3. Fracture within the RIGHT vertical froylan centered at the L2-3 level similar t o the prior thoracic spine radiograph of 02/07/2021. New since the lumbar CT of 03/15/2018. 4. Suspect loosening secondary to a lucency surrounding the T5 pedicle screws and the RIGHT T7 pedicle screw. 5. No central stenosis.
== END 2021-02-28 13:42 | disposition home or self-care (01) ==
PROVIDERS: PCP Nurse Practitioner; Visit Provider Orthopaedic Surgery
DX: Z96.7 Presence of other bone and tendon implants (principal); M41.85 Other forms of scoliosis, thoracolumbar region; S32.029A Unspecified fracture of second lumbar vertebra, initial encounter for closed fracture; S32.039A Unspecified fracture of third lumbar vertebra, initial encounter for closed fracture; X58.XXXA Exposure to other specified factors, initial encounter; M48.02 Spinal stenosis, cervical region; M50.322 Other cervical disc degeneration at C5-C6 level
CPT/HCPCS: 72125; 72128

== ENCOUNTER 2021-03-01 14:33 | Outpatient (CLI) | payer MEDICARE, MEDICAID, SELFPAY ==
--- NOTE | 2021-03-01 15:00 | USCV_ITS ---
Viola Ennis Age: 60 Gender: F : 1960 Exam Date: 03/01/2021 15:15 Ordering Phys: Haydee Simms MD ([email or web address]) Technologist: August Talley [place] [facility] [place] Indication: BP: 127 / 74 HR: 63 Rhythm: Sinus Technical Quality: Adequate MEASUREMENTS (Male / Female) Normal Values 2D ECHO LV Diastolic Diameter PLAX 3.9 cm 4.2 - 5.9 / 3.9 - 5.3 cm LV Systolic Diameter PLAX 2.5 cm IVS Diastolic Thickness 1.2 cm 0.6 - 1.0 / 0.6 - 0.9 cm IVS Systolic Thickness 1.4 cm LVPW Diastolic Thickness 1.0 cm 0.6 - 1.0 / 0.6 - 0.9 cm LVPW Systolic Thickness 1.4 cm LVOT Diameter 2.0 cm LV Ejection Fraction 2D Teich 67.5 % LV Ejection Fraction MOD 2C 75.1 % LV Ejection Fraction 2C AL 76.8 % LA Diameter 3.3 cm LA Width 3.5 cm LA Height 5.0 cm RA Width 3.3 cm RA Height 4.0 cm M-MODE LV Diastolic Diameter MM 5.3 cm 4.2 - 5.9 / 3.9 - 5.3 cm LV Systolic Diameter MM 3.9 cm LV Ejection Fraction MM Teich 51.2 % IVS Diastolic Thickness MM 1.4 cm 0.6 - 1.0 / 0.6 - 0.9 cm IVS Systolic Thickness MM 2.1 cm LVPW Diastolic Thickness MM 1.5 cm 0.6 - 1.0 / 0.6 - 0.9 cm LVPW Systolic Thickness MM 1.8 cm RV Diastolic Diameter MM 1.3 cm Aortic Annulus Diameter 3.7 cm LA Ao Ratio MM 0.9 MV E Point Septal Separation 1.0 cm DOPPLER AV Peak Velocity 120.0 cm/s LVOT Peak Velocity 118.0 cm/s AV Area Cont Eq vti 3.3 cm squared AV Area Cont Eq pk 3.2 cm squared MV Area PHT 5.0 cm squared Mitral E to A Ratio 1.1 MV E' Velocity 41.5 cm/s Mitral E to MV E' Ratio 6.4 Mitral E to LV E' Lateral Ratio 5.4 Mitral E to LV E' Septal Ratio 7.9 TR Peak Velocity 142.7 cm/s TR Peak Gradient 8.1 mmHg TV Peak E Velocity 89.0 cm/s Right Atrial Pressure 3.0 mmHg Pulmonary Artery Systolic Pressu 11.1 mmHg PV Peak Velocity 67.0 cm/s FINDINGS Left Ventricle Normal left ventricular size, systolic function and wall thickness, with no regional wall motion abnormalities. Left ventricular ejection fraction is estimated at 65 %. Normal diastolic function. Right Ventricle Normal right ventricular size and systolic function. Right ventricular systolic pressure 11.1 mmHg. Right Atrium Normal right atrial size. Left Atrium Normal left atrial size. Mitral Valve Structurally normal mitral valve. No mitral valve stenosis. Trace mitral valve regurgitation. Aortic Valve Structurally normal trileaflet aortic valve. No aortic valve stenosis. No aortic valve regurgitation. Tricuspid Valve Structurally normal tricuspid valve. No tricuspid valve stenosis. Trace tricuspid valve regurgitation. Pulmonic Valve Pulmonic valve not well visualized. No pulmonary valve stenosis. Trace pulmonary valve regurgitation. Pericardium No pericardial effusion. Aorta Normal size aortic root. CONCLUSIONS 1. Normal left ventricular size, systolic function and wall thickness, with no regional wall motion abnormalities. Left ventricular ejection fraction is estimated at 65 %. Normal diastolic function. 2. Normal right ventricular size and systolic function. 3. No significant valvular abnormality. 4. Normal pulmonary artery pressure. 5. When compared to previous echocardiogram dated 03/30/2019, left ventricular systolic function has improved. Haydee Simms MD (Electronically Signed) Final Date: 01 Mar 2021 17:38 S
--- NOTE | 2021-03-01 15:45 | USCV_ITS ---
Viola Ennis Age: 60 Gender: F : 1960 Exam Date: 03/01/2021 15:14 Ordering Phys: Haydee Simms MD ([email or web address]) Technologist: August Talley [place]am Location[place] [facility] [place]ication: claudication RIGHT LEFT Brachial 123.00 mmHg Brachial 763719.9 mmHg 6 Pressure (mmHg) Waveform Pressure (mmHg) Waveform 133.00 COMMUTATOR INSPECTOR 129.00 123.00 DPA 127.00 0.99 Ankle/Brachial Index 1.02 133.00 Pre-Exercise Toe Pressure 120.00 1.10 Pre-Exercise Toe/Brachial Index 0.97 FINDINGS Normal resting ABIs bilaterally Normal resting TBIs bilaterally CONCLUSIONS No evidence of any significant arterial obstruction, based on the above findings. Dr Carrie Tesfaye MD [facility] (Electronically Signed) Final Date: 01 Mar 2021 17:06 S
== END 2021-03-01 14:34 | disposition home or self-care (01) ==
LOC: US 14:36
PROVIDERS: PCP Nurse Practitioner; Visit Provider Internal Medicine Cardiovascular Disease
DX: I73.9 Peripheral vascular disease, unspecified (principal)
CPT/HCPCS: 93306; 93922

== ENCOUNTER → 2021-03-04 14:24 | Outpatient (BNVA) | payer MEDICARE, MEDICAID, SELFPAY | PROVIDERS: PCP Nurse Practitioner; Visit Provider Nurse Practitioner | DX: I10 Essential (primary) hypertension (principal); E03.8 Other specified hypothyroidism; E53.8 Deficiency of other specified B group vitamins; E55.9 Vitamin D deficiency, unspecified; M79.7 Fibromyalgia | CPT/HCPCS: 80053; 80061; 82306; 82607; 84443; 85025 ==

== ENCOUNTER 2021-04-05 09:13 | Emergency (ER) | payer MEDICARE, MEDICAID, SELFPAY ==
--- NOTE | 2021-04-05 09:15 | ED_ITS ---
HPI - Extremity Problem General: Chief complaint: Extremity Problem,Nontraumatic Stated complaint: Hip Pain/Injury Time Seen by Provider: 04/05/21 09:14 History of Present Illness: HPI Narrative: 61-year-old female presents emergency room with complaint of Back and hip pain.She has had a little bit of nausea. She has pain radiating on her right hip down to her knee. She previously had laminectomy with fixation. There was a fracture of the froylan on the left on old x-ray. She felt a popping sensation is concerned that she has a new froylan fracture. States pain is controllable if she lays still with any movement worsens. MD Complaint: other (Back pain) Onset (ago): day(s) Pain Consistency: constant Quality: stabbing and sharp Radiation: none Relieving factors: rest Exacerbating factors: range of motion, walking and palpation Associated symptoms: Deny arthralgias, chest pain, fever(s), myalgias, rash or short of breath Review of Systems Const: Denies: fever(s) ENMT: Denies: throat pain, ear or mastoid pain, nasal discharge or nasal congestion Card: Denies: chest pain Resp: Denies: dyspnea, productive cough or non-productive cough GI: Reports: nausea and vomiting; Denies: abdominal pain, hematemesis, coffee ground emesis, diarrhea, constipation, bloating, hematochezia or melena : Denies: flank pain, difficulty voiding, dysuria, urinary frequency or urinary urgency Skin/Breast: Denies: rash PFSH ED PFSH: Medical History Adult onset hypothyroidism Anxiety, generalized CAD (coronary artery disease) CHF (congestive heart failure), NYHA class III Chronic bilateral low back pain with bilateral sciatica Constipation, slow transit Essential (primary) hypertension Fibromyalgia muscle pain 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 Gastric reflux Hypotension, unspecified Mixed hyperlipidemia Neuropathic pain of both legs Osteopenia of multiple sites Vitamin B12 deficiency Vitamin D deficiency Surgical History History of back surgery History of cholecystectomy History of hysterectomy History of tonsillectomy Family History Other Arthritis Coronary artery disease involving three affiliated coronary artery of three affiliated heart with unstable angina pectoris Diabetes Hypertension Thyroid condition Social History Smoking and tobacco status: current every day smoker Second hand smoke exposure: Yes Smoking risk assessment/counseling performed?: Yes Alcohol intake: never Desire information about alcohol rehabilitation?: No Counseling given: No Desire information about substance/drug rehabilitation?: No Counseling given: No Adopted: No Caregiver/support person: Yes Lives independently: No Household members: family Housing: House Marital status: service: No Current occupational status: disabled History of recent travel: No Current gender identity: Female Physical Exam Const: COMMON NORMALS: no acute distress GENERAL APPEARANCE: cooperative and comfortable ORIENTATION/CONSCIOUSNESS: Yes awake, Yes oriented to person, Yes oriented to place and Yes oriented to time HENMT: COMMON NORMALS: normocephalic, atraumatic, hearing grossly normal bilaterally, external ears normal, EAC's normal, TM's normal bilaterally, Normal nasal mucous membranes and turbinates present, moist oral mucous membranes and oropharynx normal HEAD & SCALP: normocephalic and atraumatic NOSE: Normal nasal mucous membranes and turbinates present EXTERNAL EAR: Yes external ears normal EXTERNAL AUDITORY CANAL: EAC's normal TYMPANIC MEMBRANE: TM's normal bilaterally Neck/C-Spine: COMMON NORMALS: no JVD Resp: COMMON NORMALS: normal respiratory effort, No retractions, No use of accessory muscles and clear to auscultation bilaterally AUSCULTATION: clear to auscultation bilaterally Cardio: COMMON NORMALS: no JVD, regular rate, regular rhythm and No murmurs present (Cardio) RATE: regular rate RHYTHM: regular rhythm GI: COMMON NORMALS: Soft to palpation and No hepatosplenomegaly present AUSCULTATION: Yes normoactive bowel sounds PALPATION: Yes Soft to palpation, No Tenderness to palpation present (GI), No Guarding due to palpation present (GI) and Yes No hepatosplenomegaly present Extremity: COMMON NORMALS: normal to inspection, capillary refill normal, no clubbing, cyanosis or edema, no calf tenderness and no pedal edema Neuro: SENSORIUM/ORIENTATION: Yes oriented to person, Yes oriented to place and Yes oriented to time Skin: COMMON NORMALS: no rashes or lesions noted GENERAL SKIN EXAM: no rashes or lesions noted Course Vital Signs: Vital signs: Vital Signs Respiratory Rate 16 04/05/21 10:28 Pulse Oximetry 98 04/05/21 10:28 MDM - Extremity (Nontraumatic) MDM Narrative: Medical decision making narrative: Discussed with Dr. Perez and relayed to the patient. At this point stilet also do other than pain control we will give her more pain medications will follow Dr. Perez next week reviewed the patient there is a new froylan fracture given her description it may very well likely have occurred in the timeframe that she describes. Dr. Perez is already planning on removing her replacing the hardware at a later date. Patient expresses understanding will call Dr. Perez's office Discharge Plan Discharge Patient Disposition: Home Clinical Impression: 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, Neuropathic pain of both legs, Scoliosis, Back pain Condition: Stable Prescriptions: New hydrocodone-acetaminophen 5-325 mg tablet 1 - 2 tab PO Q6H PRN (Reason: pain) Qty: 20 RF: 0 No Action gabapentin 800 mg tablet 800 mg PO TID@08,15,22 RF: 0 magnesium oxide 250 mg magnesium tablet 250 mg PO DAILY@1500 RF: 0 cholecalciferol (vitamin D3) 1,000 unit capsule 1,000 unit PO DAILY@0800 RF: 0 baclofen 10 mg tablet 20 mg PO QID PRN (Reason: Spasms) RF: 0 fentanyl 75 mcg/hr patch 72 hour 1 patch TRANSDERMA Q72H RF: 0 Benicar 40 mg tablet 40 mg PO DAILY@0800 Qty: 30 RF: 3 Flonase Allergy Relief 50 mcg/actuation spray,suspension 2 spray INTRANASAL DAILY@2000 Qty: 11.1 RF: 2 (DME) BD Luer-Rae Syringe 3 mL 25 gauge x 1 syringe See Rx Instructions .ROUTE .MEDSUPPLY Qty: 5 RF: 2 furosemide 20 mg tablet 20 mg PO DAILY@0800 Qty: 30 RF: 2 lidocaine (PF) 10 mg/mL (1 %) syringe 12 ml Infiltration ONCE Qty: 20 RF: 0 cyanocobalamin (vitamin B-12) 1,000 mcg/mL solution See Rx Instructions .ROUTE .COMPLEX Qty: 2 RF: 2 cetirizine [Zyrtec] 10 mg tablet 10 mg PO DAILY Qty: 30 RF: 2 fenofibrate micronized 134 mg capsule 134 mg PO DAILY@0800 Qty: 30 RF: 2 levothyroxine 50 mcg tablet 50 mcg PO DAILY@1500 Qty: 30 RF: 2 Linzess 145 mcg capsule 145 mcg PO QAM Qty: 30 RF: 2 paroxetine HCl 30 mg tablet 30 mg PO DAILY@0800 Qty: 30 RF: 2 meclizine 25 mg tablet 25 mg PO QID PRN (Reason: nausea) Qty: 30 RF: 2 Mucinex 1,200 mg tablet extended release 12hr 1,200 mg PO Q12H Qty: 60 RF: 0 clonidine HCl 0.1 mg tablet 0.1 mg PO BID PRN (Reason: hypertensive emergency) Qty: 60 RF: 3 nifedipine 30 mg tablet extended release 30 mg PO DAILY Qty: 30 RF: 3 carvedilol 12.5 mg tablet 12.5 mg PO BID@0800,2200 Qty: 60 RF: 3 chlorhexidine gluconate [Peridex] 0.12 % mouthwash 15 ml buccal BID Qty: 118 RF: 0 hydrocodone-acetaminophen 10-325 mg tablet 1 tab PO Q4H PRN (Reason: Pain) 7 Days Qty: 30 RF: 0 vqrnerzidm-aslxqts-jxpehyih [Fiorinal] 50-325-40 mg capsule 1 cap PO PRN RF: 0 potassium gluconate 595 mg (99 mg) Tablet 595 mg PO TID@08,15,22 RF: 0 Discharge Orders: Discharge ED (Routine); Ordered 04/05/21 Ordered By: Juancarlos Robles Referrals: Hitesh Pal, STAPLE PROCESSING MACHINE OPERATOR-C [Primary Care Provider] - Discharge Diet: Usual diet Discharge Activity: Limit activity as instructed Patient Instructions: Opioid Safety Activity Restrictions/Additional Instructions: Call Dr. Perez's office for a follow-up appointment for next week. Coding Level of Care Code ED Dispensing And Measuring Optician for Antonia Medina
[2021-04-05 09:22] VITALS: BMI 19.8
--- NOTE | 2021-04-05 09:35 | XR_ITS ---
WS: [id number] Right hip, 2 views, AP pelvis, 04/05/2021 Clinical Data: pain Comparison: Left hip, 03/12/2020. Findings: No fractures or dislocations are seen. The extensive anterior and posterior fusion of the lower lumba r spine is seen. The hip joints are intact. The soft tissues are not remarkable. The SI joints and pu bic symphysis are unremarkable.Minimal bilateral acetabular lipping is present. XR/XR hip RT 2-3V wo/w pel* [id number] Impression: 1. Negative for pelvic fracture. 2. Negative for hip fractures. 3. Minimal osteoarthritis of both hips. Tonnis classification: grade 1: sclerosis of femoral head and acetabulum or sli ght joint space narrowing or slight lipping at joint margins of both hips.
--- NOTE | 2021-04-05 09:35 | XR_ITS ---
WS: [id number] Lumbar spine, 3 views, 04/05/2021 Clinical Data: back pain, previous laminectomy with fixation Comparison: Lumbar spine, 02/07/2021. Findings: There are connecting rods from the midthoracic level to the lower lumbar level to alleviate a severe dextroscoliosis of the lumbar spine. There was a fracture of the right connecting froylan at the L2 level . There is now a fracture of the left connecting froylan also at the L2 level. There is a posterior lumba r fusion of L4-S1 with an anterior fusion at L5-S1. There is artificial disc material at L4/L5 and L5 -S1. There is an oblique screw in the anterior aspect of the L4 vertebral body. The SI joints and pubic symphysis are unremarkable. There are clips in the upper abdomen from a deana cystectomy. XR/XR lumbar spine 2-3V* [id number] Impression: 1. Extensive posterior fusion of the thoracic and lumbar spine with fractures o f the connecting rods bilaterally at the L2 level. 2. Posterior lumbar fusion L4-S1 and in anterior lumbar fusions at L4 and L5-S1 . 3. No change in dextroscoliosis of lumbar spine.
[2021-04-05] MEDS: ondansetron 2 mg/ML SDV 2 mL 4 MG IVP (10:26)
[2021-04-05 10:28] VITALS: RESP 16; O2SAT 98
[2021-04-05] MEDS: morphine 4 mg/mL SDV 1 mL IVP (10:28)
== END 2021-04-05 12:00 | disposition home or self-care (01) ==
PROVIDERS: Emergency Provider Family Medicine; PCP Nurse Practitioner
DX: M41.9 Scoliosis, unspecified (principal); G57.93 Unspecified mononeuropathy of bilateral lower limbs; I25.10 Atherosclerotic heart disease of native coronary artery without angina pectoris; I11.0 Hypertensive heart disease with heart failure; I50.9 Heart failure, unspecified; E78.2 Mixed hyperlipidemia; F17.210 Nicotine dependence, cigarettes, uncomplicated
CPT/HCPCS: 72100; 73502; 96374; 96375; 99283; J2270; J2405

== ENCOUNTER 2021-04-15 14:33 | Outpatient (CLI) | payer MEDICARE, MEDICAID, SELFPAY ==
--- NOTE | 2021-04-15 14:42 | CT_ITS ---
WS: [id number] CT LUMBAR SPINE TECHNIQUE: Noncontrast CT of the lumbar spine with coronal and sagittal reformatted images. CLINICAL INFORMATION: M41.9 - Scoliosis, unspecified COMPARISON: CT 5 21,018 and 3 30,017 DLP: 1348.[address] scans at [facility] use at least one of these dose optimization techniques: automat ed exposure control; mA and/or kV adjustment per patient size (includes targeted exams where dose is matched to clinical indication); or iterative reconstruction. FINDINGS: Advanced S-shaped lumbar scoliosis convex right in the lumbar spine. Prior postoperative changes pedi des screw fixation with dorsal interconnecting rods extending into the thoracic spine. Hardware fixat ion extends cranially to the T5 vertebral body. Since the prior examination, additional hardware revision with removal of the left L5 pedicle screw. Near right L5 pedicle screw with a small amount of lucency. New right S1 pedicle screw has been place d with lucency along the right S1 pedicle screw. Stable loosening along the right L4 pedicle screw. L ateral subluxation L4 on L5 with new interbody fusion grafts L4-L5 and L5-S1. Left S1 pedicle screw abuts the left posterior lamina at S1. This is new from previous. Fracture thro ugh the dorsal interconnecting rods bilaterally at L2. This appears new from previous. L1-L2: Normal. L2-L3: Normal. L3-L4: Mild disc bulging with slight effacement of ventral thecal sac. Mild to moderate left and no s ignificant right foraminal narrowing. Spinal canal is patent. L4-L5: Spinal canal is not well visualized due to beam hardening artifact. Spinal canal appears paten t. Mild bilateral bony foraminal narrowing. L5-S1: Slight retrolisthesis L5 on S1. Loosening of the L5 pedicle screws unchanged from previous. Mi ld central canal stenosis. Impingement on the right S1 nerve root subarticular recess. Moderate right and no significant left foraminal narrowing. CT/CT lumbar spine wo con* [id number] IMPRESSION: 1. Advanced S-shaped thoracolumbar scoliosis. 2. New hardware revision with removal of the left L5 pedicle screw. New right L5 pedicle screw with a small amount of lucency. 3. New right S1 pedicle screw with lucency. 4. Left S1 pedicle screw abuts the left sacral lamina 5. Stable mildly loosening involving the right L4 pedicle screw. 6. Interbody fusion grafts at L4-L5 and L5-S1 eccentric to the left worse at L 4-5 at the periphery of the disc space 7. New bilateral fractures of the dorsal fusion rods at the L2 level.
--- NOTE | 2021-04-15 15:00 | CT_ITS ---
WS: [id number] CT THORACIC SPINE TECHNIQUE: Noncontrast CT of the thoracic spine with coronal and sagittal reformatted images. CLINICAL INFORMATION: M41.9 - Scoliosis, unspecified COMPARISON: CT February 28, 2021 DLP: 1414.[address] scans at [facility] use at least one of these dose optimization techniques: automat ed exposure control; mA and/or kV adjustment per patient size (includes targeted exams where dose is matched to clinical indication); or iterative reconstruction. FINDINGS: S-shaped thoracolumbar scoliosis. Stable pedicle screw fixation with interconnecting rods extending f rom T5 into the lumbosacral junction. Again seen is the fracture in the bilateral dorsal interconnect ing rods at the L2-3 level stable from the prior CT. Again seen is loosening involving the T5 pedicle screws and right T7 pedicle screw. No high-grade ryder tral canal narrowing. Prior decompressive laminectomies T7-T12. Beam Warren artifact in the thoracic spine from hardware degrades some images. CT/CT thoracic spin wo con* [id number] IMPRESSION: 1. No significant changes since February 28, 2021. 2. Advanced thoracolumbar scoliosis. 3. Dorsal interconnecting froylan fractures at the L2-3 level bilaterally discusse d on the lumbar spine CT. 4. Lucency along the pedicle screws at bilateral T5 and right T7 suspicious fo r loosening unchanged. 5. No significant central canal narrowing.
--- NOTE | 2021-04-15 15:30 | CT_ITS ---
WS: [id number] NONCONTRAST CT RIGHT HIP TECHNIQUE: Noncontrast CT right hip with coronal and sagittal reformatted images. CLINICAL INFORMATION: M25.551 - Pain in right hip COMPARISON: None. DLP: 701.[address] scans at [facility] use at least one of these dose optimization techniques: automat ed exposure control; mA and/or kV adjustment per patient size (includes targeted exams where dose is matched to clinical indication); or iterative reconstruction. FINDINGS: Noncontrast CT right hip. Partially visualized postoperative changes lower lumbar spine. Degenerative arthritis sacroiliac joints. Osteopenia. Moderate to advanced osteoarthritis right hip with joint sp joshua narrowing. No evidence of avascular necrosis. No acute fractures. Partially visualized right pubi c rami appear normal. Normal acetabulum. Normal visualized soft tissues. CT/CT hip RT wo con* [id number] IMPRESSION: 1. Moderate degenerative arthritis right hip joint space narrowing. No acute f ractures. 2. Normal acetabulum. 3. Partially visualized right pubic rami are normal.
== END 2021-04-15 14:34 | disposition home or self-care (01) ==
PROVIDERS: PCP Nurse Practitioner; Visit Provider Orthopaedic Surgery
DX: M41.9 Scoliosis, unspecified (principal); M25.551 Pain in right hip; M16.11 Unilateral primary osteoarthritis, right hip; S32.028A Other fracture of second lumbar vertebra, initial encounter for closed fracture; S32.038A Other fracture of third lumbar vertebra, initial encounter for closed fracture; M41.85 Other forms of scoliosis, thoracolumbar region; X58.XXXA Exposure to other specified factors, initial encounter
CPT/HCPCS: 72128; 72131; 73700

== ENCOUNTER → 2021-05-08 14:42 | Outpatient (BNVA) | payer MEDICARE, MEDICAID, SELFPAY | PROVIDERS: PCP Nurse Practitioner; Visit Provider Orthopaedic Surgery | DX: Z41.9 Encounter for procedure for purposes other than remedying health state, unspecified (principal); Z20.822 Contact with and (suspected) exposure to COVID-19 | CPT/HCPCS: 87635 ==

== ENCOUNTER → 2021-06-18 11:27 | Outpatient (BNVA) | payer MEDICARE, MEDICAID, SELFPAY | PROVIDERS: PCP Nurse Practitioner; Visit Provider Orthopaedic Surgery | DX: M41.9 Scoliosis, unspecified (principal); M54.5 Low back pain; Z98.1 Arthrodesis status; M47.896 Other spondylosis, lumbar region | CPT/HCPCS: 72100 ==

== ENCOUNTER → 2021-07-29 16:04 | Outpatient (BNVA) | payer MEDICARE, MEDICAID, SELFPAY | PROVIDERS: PCP Nurse Practitioner; Visit Provider Orthopaedic Surgery | DX: Z01.812 Encounter for preprocedural laboratory examination (principal); Z20.822 Contact with and (suspected) exposure to COVID-19 | CPT/HCPCS: 87635 ==

== ENCOUNTER 2021-07-31 14:05 | Inpatient (IN) | payer MEDICARE, MEDICAID, SELFPAY ==
[2021-07-26 08:34] VITALS: BMI 17.8
--- NOTE | 2021-07-26 08:55 | ANES.PREANE2 ---
Pre-Anesthetic Assessment Pre-Anesthetic Assessment: Height/Weight: Height 1.73 m Weight 53.07 kg Preop Diagnosis: scoliosis with broken hardware Proposed Procedure: Operation Date: 07/31/21 09:50 Proposed Procedures p PSF t4-pelvis with Hardware removal [id number] [id number] 33839(x15) M41.80(Not Applicable) - Puma Perez, DO Familial anesthetic complications: None Social: Social History: Tobacco and No alcohol Exam: Pre-Anes Outpt Exam: alert, oriented x 3, clear to auscultation bilaterally and regular rate & rhythm Airway: Cervical ROM: WNL MP: 2 Dentition: Other (no teeth) CV/HEM: CV/HEM: CAD, CHF (class III) and HTN Comments: 03/15 echo CONCLUSIONS 1. Normal left ventricular size, systolic function and wall thickness, with no regional wall motion abnormalities. Left ventricular ejection fraction is estimated at 65 %. Normal diastolic function. 2. Normal right ventricular size and systolic function. 3. No significant valvular abnormality. 4. Normal pulmonary artery pressure. 5. When compared to previous echocardiogram dated 03/30/2019, left ventricular systolic function has improved. Metabolic: Metabolic: Thyroid Neuropsych: Neuropsych: TIA (4 years ago) Anesthetic Plan: ASA status: 4 Anesthesia: General Risk of > 500 ml blood loss (7ml/kg in children): No PFSH Anesthesia PFSH: Medical History Adult onset hypothyroidism Anxiety, generalized CAD (coronary artery disease) CHF (congestive heart failure), NYHA class III Chronic bilateral low back pain with bilateral sciatica Constipation, slow transit Essential (primary) hypertension Fibromyalgia muscle pain 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 Gastric reflux Hypotension, unspecified Mixed hyperlipidemia Neuropathic pain of both legs Osteopenia of multiple sites Vitamin B12 deficiency Vitamin D deficiency Surgical History History of back surgery History of cholecystectomy History of hysterectomy History of tonsillectomy Family History Other Arthritis Coronary artery disease involving ak chin coronary artery of ak chin heart with unstable angina pectoris Diabetes Hypertension Thyroid condition Social History Second hand smoke exposure: Yes Smoking risk assessment/counseling performed?: Yes Alcohol intake: never Desire information about alcohol rehabilitation?: No Counseling given: No Desire information about substance/drug rehabilitation?: No Counseling given: No Adopted: No Caregiver/support person: Yes Lives independently: No Household members: family Housing: House Marital status: service: No Current occupational status: disabled History of recent travel: No Current gender identity: Female Data Anesthesia Cardiac Studies: No Data to Display
[2021-07-26 09:04] LABS: Basophils % 0.6 %; Eosinophils # 0.1 10^3/uL (0.0-0.8); Eosinophils % 1.2 %; Hematocrit 41.3 % (37.0-47.0); Hemoglobin 13.5 g/dL (11.5-15.3); Lymphocytes # 1.6 10^3/uL (0.8-4.8); Lymphocytes % 23.6 %; Mean Corpuscular HGB Conc 32.7 g/dL (30.0-36.0); Mean Corpuscular Hemoglobin 31.5 pg (28.0-34.0); Mean Corpuscular Volume 96.3 fl (81-99); Mean Platelet Volume 11.1 fL (7.4-10.4); Monocytes # 0.5 10^3/uL (0.2-0.9); Monocytes % 6.8 %; Neutrophils # 4.45 10^3/uL (1.8-7.7); Neutrophils % 67.5 %; Nucleated Red Blood Cells % 0 %; Platelet Count 158 10^3/cmm (130-400); Red Blood Count 4.29 10^6/uL (4.1-5.3); Red Cell Distribution Width 13.8 % (12.1-15.1); White Blood Count 6.6 10^3/uL (4.0-10.0)
[2021-07-26 09:27] LABS: Alanine Aminotransferase 6 U/L (0-33); Albumin Level 3.7 g/dL (3.5-5.2); Alkaline Phosphatase 55 IU/L (35-105); Anion Gap 13.9 (5-19); Aspartate Amino Transferase 14 U/L (0-32); Blood Urea Nitrogen 16 mg/dL (8-23); Carbon Dioxide 26 mmol/L (22-29); Chloride 99 mmol/L (98-107); Globulin 2.3 g/dL (1.3-4.6); Glomerular Filtration Rate 125.9 mL/min (90-130); Glucose 85 mg/dL (65-115); Osmolality Calculated 280 mOsm/kg (285-295); Potassium 3.9 mmol/L (3.5-5.1); Sodium 135 mmol/L (136-145); Total Bilirubin 0.2 mg/dL (0.15-1.2)
[2021-07-31] VITALS (13 sets, daily range): BP systolic 148–171; BP diastolic 79–98; PULSE 64–84; RESP 16–20; TEMP 36.1–37.8; O2SAT 94–100; BMI 17.8
--- NOTE | 2021-07-31 | SCC_ITS ---
Procedure Done: 1. L1-pelvis fusion 2. L1 to S1 instrumentation 3. Lumbo pelvic fixation / instrumentation 4. computer navigation/ stereo tactic of the spine 5. Bone marrow aspirate right iliac crest 6. use of allograft 7. use of autograft 8. removal of hardware from the spine 12 seconds of fluoroscopic guidance, for a cumulative dose of 15.9 mGy, was provided to Dr. Perez by the radiology department. C-arm images of the lumbar spine were saved for the patient's permanent record. TIMMY
--- NOTE | 2021-07-31 | XR_ITS ---
WS: [id number] XR lumbar spine 1V [id number] REASON FOR EXAM: Hardware revision FINDINGS: Broken rods replaced/repaired with the addition of long sacral/iliac screws. Current and previous surgical appliances appear in proper position and alignment. XR/XR lumbar spine 1V [id number] IMPRESSION: Hardware revision as above.
--- NOTE | 2021-07-31 08:38 | ECG_ITS ---
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 Measurements Intervals [place] Rate: 63 P: 56 MI: 136 QRS: -6 QRSD: 84 T: 40 QT: 388 QTc: 399 Interpretive Statements SINUS RHYTHM Compared to ECG 03/12/2020 13:58:26 Myocardial infarct finding no longer present Electronically Signed On 07-31-2021 23:06:39 CDT by Carrie Tesfaye M.D. [id number]
--- NOTE | 2021-07-31 08:47 | P.HP_ITS ---
Providers/Chief Complaint Primary Care Provider: OBI FritzC Chief Complaint: PSF t4-pelvis with Hardware removal History of Present Illness Viola Ennis is a 61 year old female broken spine hardware. She states she was seen by her primary care doctor for trigger point injections when it was discovered that she has two raised areas to either side of her spine where her hardware is pushing against her skin. She is concerned about a raised area to her right hip. She is using a wheelchair at todays visit. She states at home she uses a walker but uses the wheelchair for long distances. Chief Complaint: back pain Onset: fall in December 2019 broken hardware discovered in May 2020 Duration: years Characteristics: ache Severity: 08/04 Location: back Radiating symptoms: hips, groin and right lateral thigh pain Aggravating factors: sitting, sitting on the toilet Alleviating factors: rest, leaning to the right when sitting Neuro deficits: denies numbness, tingling, incontinence of bowel/bladder, saddle anesthesia. Prior tx: pain management, back surgery 2014 [place], [place] Review of Systems Narrative: General ROS: negative for weight changes, fever ENT ROS: negative for nasal congestion, drainage or bleeding, sore throat, dysphagia or ear pain Eyes: PERRL Hematological and Lymphatic ROS: negative for swollen glands or abnormal bleeding Endocrine ROS: negative for polyuria/polydpsia or new changes in weight Respiratory ROS: negative for cough, shortness of breath, or wheezing Cardiovascular ROS: negative for chest pain or dyspnea on exertion Gastrointestinal ROS: negative for reflux, abdominal pain, change in bowel habits, or black or bloody stools Musculoskeletal ROS: negative for back pain, neck pain, or joint pain or swelling except for current problem Neurological ROS: negative for TIA or stoke symptoms Skin: no rashes Medications/Allergies Home Medications Medication Instructions Recorded Confirmed Last Taken Type baclofen 10 mg tablet 20 mg PO QID PRN 10/31/19 07/26/21 10/13/20 History cholecalciferol (vitamin D3) 25 1,000 unit PO DAILY@0800 10/31/19 07/26/21 10/13/20 History mcg (1,000 unit) capsule fentanyl 75 mcg/hr transdermal 1 patch TRANSDERMA Q72H 10/31/19 07/26/21 10/13/20 History patch gabapentin 800 mg tablet 800 mg PO TID@08,15,10/31/19 07/26/21 10/13/20 History magnesium oxide 250 mg PO DAILY@1500 tab 10/31/19 07/26/21 10/12/20 History vyzizhgdbm-hikcemj-crvtuneg 1 cap PO PRN 03/12/20 07/26/21 10/12/20 History [Fiorinal] potassium gluconate 595 mg PO TID@,,03/12/20 07/26/21 10/13/20 History clonidine HCl 0.1 mg tablet 0.1 mg PO BID PRN #60 tab 12/28/20 07/26/21 Unknown Rx hydrocodone 10 mg-acetaminophen 1 tab PO Q4H PRN 7 Days #30 tab 04/04/2111/15 Unknown Rx 325 mg tablet olmesartan 40 mg tablet 40 mg PO DAILY@0800 #30 tab 04/10/21 07/26/21 Unknown Rx carvedilol 12.5 mg tablet See Rx Instructions .ROUTE 04/29/21 07/26/21 Unknown Rx .COMPLEX #180 tab nifedipine 30 mg tablet,extended See Rx Instructions .ROUTE 04/29/21 07/26/21 Unknown Rx release 24 hr .COMPLEX #90 tab cyanocobalamin (vitamin B-12) See Rx Instructions .ROUTE 05/28/21 07/26/21 Unknown Rx 1,000 mcg/mL injection solution .COMPLEX #2 ml fenofibrate micronized 134 mg 134 mg PO DAILY@0800 #30 cap 05/28/21 07/26/21 Unknown Rx capsule furosemide 20 mg tablet 20 mg PO DAILY@0800 #30 tab 05/28/21 07/26/21 Unknown Rx levothyroxine 50 mcg tablet 50 mcg PO DAILY@1500 #30 tab 05/28/21 07/26/21 Unknown Rx paroxetine HCl 30 mg tablet 30 mg PO DAILY@0800 #30 tab 05/28/21 07/26/21 Unknown Rx syringe with needle 3 mL 25 gauge #5 ea 05/28/21 07/24/21 Unknown Rx x 1 linaclotide 145 mcg capsule 145 mcg PO QAM #90 cap 06/13/21 07/26/21 Unknown Rx [id number] Bone Growth Stimulator #1 ea 07/26/21 Unknown Rx Allergies Allergy/AdvReac Type Severity Reaction Status Date / Time atorvastatin [From Lipitor] Allergy Unknown known Verified 06/18/21 11:33 ezetimibe [From Zetia] Allergy Unknown unknown Verified 06/18/21 11:33 rosuvastatin [From Crestor] Allergy Unknown unknown Verified 06/18/21 11:33 Fiusgcz-Oqb-Flx Reductase Allergy Unknown Unknown Verified 06/18/21 11:33 Inhibitor Sulfa (Sulfonamide Allergy Unknown Unknown Verified 06/18/21 11:33 Antibiotics) sumatriptan [From Imitrex] Allergy Unknown known Verified 06/18/21 11:33 IV contrast dye Allergy ALGY-Anaphy Uncoded 02/05/21 13:25 laxis PFSH Acute PFSH: Medical History Adult onset hypothyroidism Anxiety, generalized CAD (coronary artery disease) CHF (congestive heart failure), NYHA class III Chronic bilateral low back pain with bilateral sciatica Constipation, slow transit Essential (primary) hypertension Fibromyalgia muscle pain 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 Gastric reflux Hypotension, unspecified Mixed hyperlipidemia Neuropathic pain of both legs Osteopenia of multiple sites Vitamin B12 deficiency Vitamin D deficiency Surgical History History of back surgery History of cholecystectomy History of hysterectomy History of tonsillectomy Family History Other Arthritis Coronary artery disease involving [place] coronary artery of [place] heart with unstable angina pectoris Diabetes Hypertension Thyroid condition Social History Second hand smoke exposure: Yes Smoking risk assessment/counseling performed?: Yes Alcohol intake: never Desire information about alcohol rehabilitation?: No Counseling given: No Desire information about substance/drug rehabilitation?: No Counseling given: No Adopted: No Caregiver/support person: Yes Lives independently: No Household members: family Housing: House Marital status: service: No Current occupational status: disabled History of recent travel: No Current gender identity: Female Physical Exam Narrative: EXAM NARRATIVE: CONSTITUTIONAL: The patient is a normal appearing [] in no apparent distress. GENERAL: Patient in no acute distress. CARDIAC: Regular rate and rhythm. CHEST: Normal inspiratory effort, normal respiratory rate. ABDOMEN: Soft and nontender. SKIN: Clear, warm and intact. NEURO?PSYCH: The patient is alert and oriented to person, place and time. Sensorv /SILT Motor StrengthShoulder abduction C5 5/5Wrist extension C6 5/5Elbow extension C7 5/5Hand Home School Teacher C8 5/5Finger abduction T15/5 Radial/ Ulnar/ Median n intact LowerSensory (SILT)Motor StrengthHin flexion L2/3Ant/inner thigh 5/5Hip adduction L2/3 5/5Knee extension L4 Lat thigh, 5/5Toe dorsiflexion L5 5/5Ankle dorsiflexion L5/ G34Jtsuxxt flexion S1 5/5 DTRBleeps 2+Triceps 2+Brachioradialis 2+Patellar 2+Achilles 2+ MUSCULOSKELETAL: [] UPPEREXTREMITIES: The patient had full active ROM in fingers, wrist, elbow, and shoulder. The patient demonstrated ability to fully flex/extend/abduct/adduct fingers, make ok sign, cross 2nd/3rd digits, extend 1st digit fully.. Radial pulse 2+, CR<2 seconds. LOWER EXTREMITIES: Pt has full, active ROM of toes, ankle, knee, and hip. Dorsalis pedis/posterior tibialis pulses 2+, CR<2 seconds. SPINE: Skin warm, dry, intact. Data : 07/26/21 08:51 07/26/21 08:51 A&P Assessment and plan (1) Scoliosis: removal of hardware and replacement of hardware attaching on to previous construct Status: Chronic Attestations Medical Necessity Statement*: broken hardware Coding Level of Care Code Acute Dragline Operator Helper for [facility] Fwradha Diagnoses Scoliosis M41.9
--- NOTE | 2021-07-31 09:08 | P.ANESUD_ITS ---
Pre-Anesthetic Update Pre-Anesthetic Assessment: Date of Surgery/Procedure: 07/31/21 Preop Whitney gnosis: scoliosis with broken hardware Proposed Procedure: Operation Date: 07/31/21 10:00 Proposed Procedures p PSF t4-pelvis with Hardware removal [id number](x15) M41.80(Not Applicable) - Pumacaprice Perez, DO Any changes to Pre-Anesthetic Assessment?: No Exam: Pre-Anes Outpt Exam: alert, oriented x 3, clear to auscultation bilaterally and regular rate & rhythm Other Pertinent Information: Other Pertinent Information: Plan GETA with a.line Cardiac Studies: No Data to Display
[2021-07-31] MEDS: sodium chloride 0.9% 1,000 ML 30 ML IV (09:29)
--- NOTE | 2021-07-31 10:24 | ANES.PROC ---
Anesthesia Procedures Procedure/Date: 07/31/21 Arterial Line: Time Out Performed: Yes Consent: requested by attending/covering physician, from patient, risks and benefits reviewed and patient agrees to proceed Size (Gauge): 20 Technique Used: direct puncture technique Post-Procedure: dry sterile dressing placed Patient Tolerated Procedure: well Complications: none Site: left and radial
[2021-07-31] MEDS: heparin, porcine 1,000 unit/mL INJ 10 mL 10000 UNIT IRRIGATION (10:48)
[2021-07-31] MEDS: vancomycin 1,000 MG SDV 2000 MG XX (10:48)
[2021-07-31] MEDS: ceFAZolin 1,000 mg SDV 2000 MG (13:46)
--- NOTE | 2021-07-31 14:18 | P.OP_ITS ---
Operative Report Date of procedure: July 31, 2021 Pre-op Diagnosis: scoliosis with broken hardware Post-op diagnosis: same Procedure Done: 1. L1-pelvis fusion 2. L1 to S1 instrumentation 3. Lumbo pelvic fixation / instrumentation 4. computer navigation/ stereo tactic of the spine 5. Bone marrow aspirate right iliac crest 6. use of allograft 7. use of autograft 8. removal of hardware from the spine Surgeon: Puma Perez Beater Worker Helper: Tristan Avina Beater Worker Helper: The surgical dental assistant, Tristan Avina, ALAN was needed for his expertise under the microscope. He was important and necessary throughout the procedure to complete in a safe and timely manner. He assisted with patient positioning prepping and draping tissue retraction suctioning of the operative field protection of the dural sac and tissue closure Anesthesia: General Estimated blood loss (mL): 150 Condition: stable Disposition: PACU Procedure: 1. L1-pelvis fusion 2. L1 to S1 instrumentation 3. Lumbo pelvic fixation / instrumentation 4. computer navigation/ stereo tactic of the spine 5. Bone marrow aspirate right iliac crest 6. Exploration of nonunion 7. use of allograft 8. use of autograft 9. removal of hardware from the spine Patient was brought to the operative suite after undergoing anesthesia was placed prone on the table. All areas impingement were well-padded. Neuro monitoring was was used for the entire procedure. There were no complications. Patient was then prepped and draped normal sterile fashion. Skin incision was made from approximately T12 down to the pelvis. Subperiosteal dissection was made from T12 down to the sacrum out to the sacral ala. Next attention was brought to removing the hardware that was distal to the broken rods. Multiple screws and rods were in the patient these were removed. This was done by dissecting out around these screws and rods and then taking out various cross connectors various different types of and caps screws. Once this was completed then scar tissue and tissues were removed in order to try to facilitate finding bone. Attention was then brought to the taking of bone marrow aspirate. The bone marrow aspiration kit was used. Once the sharp was inserted into the iliac crest this was aspirated then the blunt was placed then the aspiration began 20 cc of bone marrow aspirate were taken from the right iliac crest. Next attention was done to placing the fiducial for the computer navigation. 2 pins were placed into the right iliac crest. And then the fiducial was locked into position. This was then pared with a computer. C-arm was brought in and spun and locked all the information into the computer. In order to facilitate placing the screws using computer navigation. The first screw was placed into the right iliac wing. This was done using computer navigation by using the gearshift linked to the computer navigation followed by the ball probe followed by placement of the screw. Next attention was brought to placing the S1 screw on the right side. This again was done using computer navigation. With the same technique of placing the gearshift followed by a ball probe and and screws using computer navigation. This process was repeated at L5 and L4 on the right side. And then an iliac screw was placed on the left side as well as the S1 and L5 screws. Attention was then brought to exploration of the nonunion site. The Bovie was used to try to identify where the nonunion occurred. This was done using Bovie and rongeur in order to facilitate finding the bone. Find the specific site however on C arm you could see where there is possibility at the L2-3 level. Next attention was brought to placing a screw on the left side at L1. The previous yovany that was in was then lifted into the tulip of this L1 screw and loc ked in position. Yovany yovany connectors were placed onto the proximal and distal yovany and these were locked into position with 4 and caps. And then the screws were placed into the left L L5-S1 and iliac screw. On the left. The right side yovany was placed with an end-to-end connector locking to the yovany and going from L4-5 S1 and iliac screw. Once these were all locked into position AP x-ray ensure that everything is in proper position. Wounds were irrigated bone was decorticated from L1 down to the sacral ala's. And then OsteoMed bone graft and autograft were placed along the bone previous fusion mass and gutters. Vancomycin powder was placed Wound was then closed with 0 Vicryl 2-0 Vicryl in a layered fashion and nylon suture. Silverlon dressing was applied and patient was transferred to the PACU in stable condition.
--- NOTE | 2021-07-31 15:19 | PC.NURSE ---
pt a line removed at 1520 pressure held for 7 minutes no further bleeding when pressure removed preparing to move to the floor
--- NOTE | 2021-07-31 15:21 | ANE.PACU2 ---
Inpatient post-anesthesia follow up: Airway intact: Yes Vital signs: Temperature 98.5 F Pulse Rate 67 Respiratory Rate 16 Blood Pressure 171/98 Pulse Oximetry 100 Oxygen Delivery Me thod Simple Mask Oxygen Flow Rate 10 Fraction of Inspir ed Oxygen Hydration adequate: Yes Nausea and vomiting: No Pain level: 4 Mental status: Baseline
--- NOTE | 2021-07-31 16:50 | PM.CONSULT ---
Providers/Reason For Consult Consulting Physician/Specialty*: CAD, CHF, Dr. Perez Reason for Consult*: CAD, CHF Attending Physician: Puma Perez DO Primary Care Provider: TONI Fritz History of Present Illness History of Present Illness Viola Ennis is a 61 year old female with a past medical history of CAD, CHF, hypertension, hyperlipidemia, hypothyroidism, who presents to [facility] for back pain, history of broken hardware, who presents to [facility] for L1 pelvis fusion. Hospitalist team was consulted for medical management. Patient was currently seen in 269 bed 1, she is postop, she is a bit drowsy, but does follow commands, denies chest pain, no shortness of breath, no lightheadedness, dizziness, no nausea, no vomiting, is complaining of back pain,. Has history of CAD, denies a history of stenting. Has a history of CHF, denies shortness of breath, bilateral from edema. Denies a history of smoking. Denies a history of type 2 diabetes mellitus Review of Systems Const: Denies: fever(s) Card: Denies: chest pain GI: Denies: abdominal pain Musc: Reports: back pain Neuro: Denies: headache(s) Meds/Allergies Home Medications and Allergies Home Medications Medication Instructions Recorded Confirmed Last Taken Type baclofen 10 mg tablet 20 mg PO QID PRN 10/31/19 07/31/21 07/30/21 History cholecalciferol (vitamin D3) 25 1,000 unit PO DAILY@0800 10/31/19 07/31/21 07/30/21 History mcg (1,000 unit) capsule fentanyl 75 mcg/hr transdermal 1 patch TRANSDERMA Q72H 10/31/19 07/31/21 07/31/21 History patch gabapentin 800 mg tablet 800 mg PO TID@08,,10/31/19 07/31/21 07/30/21 History magnesium oxide 250 mg PO DAILY@1500 tab 10/31/19 07/26/21 10/12/20 History zhprneujab-kautcnq-ujinxyqz 1 cap PO PRN 03/12/20 07/26/21 10/12/20 History [Fiorinal] potassium gluconate 595 mg PO TID@08,,03/12/20 07/31/21 07/30/21 History clonidine HCl 0.1 mg tablet 0.1 mg PO BID PRN #60 tab 12/28/20 07/31/21 Unknown Rx hydrocodone 10 mg-acetaminophen 1 tab PO Q4H PRN 7 Days #30 tab 04/04/21 07/31/21 07/30/21 Rx 325 mg tablet olmesartan 40 mg tablet 40 mg PO DAILY@0800 #30 tab 04/10/21 07/31/21 07/30/21 Rx carvedilol 12.5 mg tablet See Rx Instructions .ROUTE 04/29/21 07/31/21 07/30/21 22:00 Rx .COMPLEX #180 tab nifedipine 30 mg tablet,extended See Rx Instructions .ROUTE 04/29/21 07/31/21 07/30/21 Rx release 24 hr .COMPLEX #90 tab cyanocobalamin (vitamin B-12) See Rx Instructions .ROUTE 05/28/21 07/26/21 Unknown Rx 1,000 mcg/mL injection solution .COMPLEX #2 ml fenofibrate micronized 134 mg 134 mg PO DAILY@0800 #30 cap 05/28/21 07/31/21 07/30/21 Rx capsule furosemide 20 mg tablet 20 mg PO DAILY@0800 #30 tab 05/28/21 07/31/21 07/30/21 Rx levothyroxine 50 mcg tablet 50 mcg PO DAILY@1500 #30 tab 05/28/21 07/31/21 07/30/21 Rx paroxetine HCl 30 mg tablet 30 mg PO DAILY@0800 #30 tab 05/28/21 07/31/21 07/30/21 Rx syringe with needle 3 mL 25 gauge #5 ea 05/28/21 07/24/21 Unknown Rx x 1 linaclotide 145 mcg capsule 145 mcg PO QAM #90 cap 06/13/21 07/31/21 07/30/21 Rx [id number] Bone Growth Stimulator #1 ea 07/26/21 Unknown Rx omeprazole 40 mg PO DAILY 07/31/21 07/31/21 07/30/21 History Allergies Allergy/AdvReac Type Severity Reaction Status Date / Time atorvastatin [From Lipitor] Allergy Unknown known Verified 06/18/21 11:33 ezetimibe [From Zetia] Allergy Unknown unknown Verified 06/18/21 11:33 rosuvastatin [From Crestor] Allergy Unknown unknown Verified 06/18/21 11:33 Jybxixn-Izw-Smu Reductase Allergy Unknown Unknown Verified 06/18/21 11:33 Inhibitor Sulfa (Sulfonamide Allergy Unknown Unknown Verified 06/18/21 11:33 Antibiotics) sumatriptan [From Imitrex] Allergy Unknown known Verified 06/18/21 11:33 IV contrast dye Allergy ALGY-Anaphy Uncoded 02/05/21 13:25 laxis PFSH Acute PFSH: Medical History Adult onset hypothyroidism Anxiety, generalized CAD (coronary artery disease) CHF (congestive heart failure), NYHA class III Chronic bilateral low back pain with bilateral sciatica Constipation, slow transit Essential (primary) hypertension Fibromyalgia muscle pain 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 Gastric reflux Hypotension, unspecified Mixed hyperlipidemia Neuropathic pain of both legs Osteopenia of multiple sites Vitamin B12 deficiency Vitamin D deficiency Surgical History History of back surgery History of cholecystectomy History of hysterectomy History of tonsillectomy Family History Other Arthritis Coronary artery disease involving [place] coronary artery of [place] heart with unstable angina pectoris Diabetes Hypertension Thyroid condition Social History Second hand smoke exposure: Yes Smoking risk assessment/counseling performed?: Yes Alcohol intake: never Desire information about alcohol rehabilitation?: No Counseling given: No Desire information about substance/drug rehabilitation?: No Counseling given: No Adopted: No Caregiver/support person: Yes Lives independently: No Household members: family Housing: House Marital status: service: No Current occupational status: disabled History of recent travel: No Current gender identity: Female Vitals/I&O/Wt Last Vital Signs Temp 97 F L 07/31/21 15:30 Pulse 73 07/31/21 16:47 Resp 17 07/31/21 16:47 BP 170/94 07/31/21 15:30 Pulse Ox 100 07/31/21 16:47 07/31/21 07/31/21 07/31/21 06:59 14:59 22:59 Intake Total 960 / 960 Output Total 400 / 400 Balance 560 / 560 Weight last 48 hrs Weight 53.07 kg Physical Exam Const: COMMON NORMALS: no acute distress ORIENTATION/CONSCIOUSNESS: Yes awake, Yes oriented to person and Yes oriented to place; not oriented to time OTHER: Is a bit drowsy after surgery HENMT: COMMON NORMALS: normocephalic HEAD & SCALP: normocephalic Eye: COMMON NORMALS: Equal, round and reactive pupils present GENERAL EYE: appearance normal, both eyes and all related structures PUPIL: Yes Equal, round and reactive pupils present Neck/C-Spine: COMMON NORMALS: no lymphadenopathy and Thyroid normal THYROID: Thyroid normal Lymph: LYMPHATIC: no lymphadenopathy noted Resp: COMMON NORMALS: normal respiratory effort, No retractions, No use of accessory muscles and clear to auscultation bilaterally AUSCULTATION: clear to auscultation bilaterally Cardio: COMMON NORMALS: regular rate, regular rhythm, S1 normal heart sound present, S2 normal heart sound present, No gallops present (Cardio), No clicks present (Cardio) and No murmurs present (Cardio) RATE: regular rate RHYTHM: regular rhythm HEART SOUNDS: S1 normal heart sound present and S2 normal heart sound present GI: COMMON NORMALS: Normal to inspection, nondistended, normoactive bowel sounds present, Soft to palpation and non-tender PALPATION: Yes Soft to palpation Extremity: COMMON NORMALS: no pedal edema Neuro: COMMON NORMALS: CN's II-XII intact bilaterally and moves all extremities SENSORIUM/ORIENTATION: Yes oriented to person, Yes oriented to place and No oriented to time Urinary Catheter Management^: Zimmerman: Cath Placed During This Visit: yes Urinary Catheter Date of Insertion: 07/31/21 Urinary Catheter Time of Insertion: 10:00 A&P Assessment and plan (1) Scoliosis: -Status post 1. L1-pelvis fusion 2. L1 to S1 instrumentation 3. Lumbo pelvic fixation / instrumentation 4. computer navigation/ stereo tactic of the spine 5. Bone marrow aspirate right iliac crest 6. use of allograft 7. use of autograft 8. removal of hardware from the spine -By Dr. Perez -Postop day 0 Plan: -Pain control and anticoagulation as per orthopedic service -Monitor respiratory status, currently on 2 L -Monitor for fevers -Hemovac in place, Zimmerman catheter in place -Monitor mentation closely -PT OT -Full code -Lovenox for DVT prophylaxis CAD, no current chest pain, continue to monitor Hypertension, continue home medications CHF, monitor fluid overload, monitor respiratory status Hypothyroidism, continue levothyroxine Hyperlipidemia, continue home meds Status: Chronic (2) Anxiety, generalized: Status: Chronic (3) CHF (congestive heart failure), NYHA class III: Status: Acute (4) CAD (coronary artery disease): Status: Acute Qualifiers: Coronary Disease-Associated Artery/Lesion type: [place] artery [place] vs. transplanted heart: [place] heart Associated angina: without angina Qualified Code(s): I25.10 - Atherosclerotic heart disease of [place] coronary artery without angina pectoris (5) Mixed hyperlipidemia: Status: Chronic (6) Adult onset hypothyroidism: Status: Chronic (7) Gastric reflux: Status: Chronic Procedures Arterial Line Size (Gauge): 20 Coding Level of Care Code Acute Copyist for Chg Fwd Diagnoses Scoliosis M41.9 Anxiety, generalized F41.1 CHF (congestive heart failure), NYHA class III I50.9 CAD (coronary artery disease) I25.10 Coronary Disease-Associated Artery/Lesion type: [place] artery [place] vs. transplanted heart: [place] heart Associated angina: without angina Mixed hyperlipidemia E78.2 Adult onset hypothyroidism E03.8 Gastric reflux K21.9
[2021-07-31] MEDS: lactated ringers 1,000 ML 90 ML IV (16:52)
[2021-07-31] MEDS: levothyroxine 50 mcg Tablet PO (16:52)
[2021-07-31] MEDS: HYDROcodone-acetaminophen 5-325 mg Tablet PO ×2 (16:57→21:07)
[2021-07-31] MEDS: carvedilol 12.5 mg Tablet PO (16:58)
[2021-07-31] MEDS: docusate sodium 100 mg Capsule PO (16:58)
--- NOTE | 2021-07-31 18:54 | PC.NURSE ---
Report to Venkata FLORES at this time.
[2021-07-31] MEDS: gabapentin 400 mg Capsule 800 MG PO (21:11)
[2021-08-01] VITALS (8 sets, daily range): BP systolic 90–129; BP diastolic 50–77; PULSE 80–98; RESP 16–20; TEMP 37–37.6; O2SAT 90–100
[2021-08-01] MEDS: HYDROcodone-acetaminophen 5-325 mg Tablet PO ×4 (05:14→21:58)
[2021-08-01] MEDS: enoxaparin 40 mg/0.4 mL Syringe SUBCUT (05:14)
--- NOTE | 2021-08-01 06:27 | PC.NURSE ---
Patinet has barnes in place from PLIF yesterday. January, RN who was helping as a DENTIST/OWNER notified me that the patient had no output this shift. I bladder scanned the patient and she had 475mL. I deflated the ballon of the catheter and it stared the drain i then reinflated the baloon and allowed the patinet to drain. she had 500mL of outout at this time and is still draining. Repositioned patient and she is resting in bed. SANDRA Byers
[2021-08-01 06:42] LABS: Basophils % 0.3 %; Hematocrit 33.5 % (37.0-47.0); Hemoglobin 10.6 g/dL (11.5-15.3); Lymphocytes # 0.7 10^3/uL (0.8-4.8); Lymphocytes % 4.9 %; Mean Corpuscular HGB Conc 31.6 g/dL (30.0-36.0); Mean Corpuscular Hemoglobin 31.4 pg (28.0-34.0); Mean Corpuscular Volume 99.1 fl (81-99); Mean Platelet Volume 11.3 fL (7.4-10.4); Monocytes # 0.9 10^3/uL (0.2-0.9); Monocytes % 5.7 %; Neutrophils # 13.13 10^3/uL (1.8-7.7); Neutrophils % 88.7 %; Nucleated Red Blood Cells % 0 %; Platelet Count 149 10^3/cmm (130-400); Red Blood Count 3.38 10^6/uL (4.1-5.3); Red Cell Distribution Width 13.8 % (12.1-15.1); White Blood Count 14.8 10^3/uL (4.0-10.0)
[2021-08-01 07:24] LABS: Alanine Aminotransferase 8 U/L (0-33); Albumin Level 3.2 g/dL (3.5-5.2); Alkaline Phosphatase 38 IU/L (35-105); Anion Gap 18.7 (5-19); Aspartate Amino Transferase 16 U/L (0-32); Blood Urea Nitrogen 16 mg/dL (8-23); Calcium 8.3 mg/dL (8.5-10.5); Carbon Dioxide 22 mmol/L (22-29); Chloride 107 mmol/L (98-107); Globulin 1.9 g/dL (1.3-4.6); Glomerular Filtration Rate 125.9 mL/min (90-130); Glucose 86 mg/dL (65-115); Magnesium 1.7 mg/dL (1.7-2.3); NT Pro B Type Natriuretic Pept 733 pg/mL (0-125); Osmolality Calculated 298 mOsm/kg (285-295); Phosphorus 3.1 mg/dL (2.5-4.5); Potassium 3.7 mmol/L (3.5-5.1); Sodium 144 mmol/L (136-145); Total Bilirubin 0.4 mg/dL (0.15-1.2); Total Protein 5.1 g/dL (6.6-8.7)
--- NOTE | 2021-08-01 07:39 | PM.PN ---
Documented by User: CURT Bob 08/01/21 07:46 Subjective Subjective: Interval history: POD 1 Ms Ennis is resting comfortably. reports some increased back pain. Denies chest pain or shortness of breath. Denies any headaches. Vitals/I&O/Wt Last Vital Signs Temp 99.2 F 08/01/21 04:00 Pulse 97 08/01/21 04:00 Resp 20 H 08/01/21 04:00 BP 129/73 08/01/21 04:00 Pulse Ox 94 08/01/21 04:00 07/31/21 08/01/21 08/01/21 22:59 06:59 14:59 Intake Total 60 / 1020 50 / 1070 Output Total 725 / 1125 Balance -665 / -105 50 / -55 Weight last 48 hrs Weight 117 lb Physical Exam Narrative: EXAM NARRATIVE: Incision is clean and dry. She has normal sensation down both lower extremities. Feet are warm good cap refill she wiggles all digits. She appears to fire in all motor groups. Resp: COMMON NORMALS: normal respiratory effort Urinary Catheter Management^: Zimmerman: Cath Placed During This Visit: yes Reason for Continuing Indwelling Catheter: Perioperative Use in Selected Surgeries Urinary Catheter Date of Insertion: 07/31/21 Urinary Catheter Time of Insertion: 10:00 Data : 08/01/21 06:15 08/01/21 06:15 A&P Assessment and plan (1) Fusion of spine: Physical therapy work with mobilization today. We will discontinue Hemovac drain. Encourage incentive spirometry for pulmonary toilet. Status: Acute Attestations Medical Necessity Statement*: Defer to medical team Procedures Arterial Line Size (Gauge): 20 Coding Level of Care Code Acute Tip Banding Machine Operator for Chg Fwd Exam Problem Focused Diagnoses Fusion of spine M43.20 Documented by User: Puma Perez DO 08/01/21 08:09 Physical Exam Urinary Catheter Management^: Zimmerman: Cath Placed During This Visit: no Data : 08/01/21 06:15 08/01/21 06:15 A&P Assessment and plan (1) Fusion of spine: agree with above d/c planning Status: Acute Coding Level of Care Code Acute Tip Banding Machine Operator for Alving Fwd Exam Problem Focused Diagnoses Fusion of spine M43.20
[2021-08-01] MEDS: losartan 50 mg Tablet 100 MG PO (07:59)
[2021-08-01] MEDS: gabapentin 400 mg Capsule 800 MG PO ×3 (07:59→21:58)
[2021-08-01] MEDS: docusate sodium 100 mg Capsule PO ×2 (07:59→21:58)
[2021-08-01] MEDS: PARoxetine 20 mg Tablet 30 MG PO (07:59)
[2021-08-01] MEDS: cholecalciferol (vitamin D3) 1,000 unit Tablet 1000 UNIT PO (07:59)
[2021-08-01] MEDS: pantoprazole DR 40 mg Tablet PO (08:00)
[2021-08-01] MEDS: NIFEdipine ER (24 hr) 30 mg Tablet PO (08:00)
[2021-08-01] MEDS: carvedilol 12.5 mg Tablet PO (08:00)
[2021-08-01] MEDS: FUROsemide 20 mg Tablet PO (08:00)
--- NOTE | 2021-08-01 10:58 | PC.CHAP ---
Pastoral Care Encounter/Spiritual Assessment Type of Contact [] Declined patient service associate visit [] Patient/Family/Request visit [] Outpatient visit [] Follow-up visit [] Physician referral [] Code/Alert [] Routine visit [] Staff referral [] Actively dying [] Patient sleeping [] Family support [] [] Out of room [] Palliative care [] [] Receiving care in room [] Pre-surgical visit [] Trauma [] Long length of stay [] ICU visit [x] Other: under doctor and staff care Relational/Emotional Strength [] Patient feels connected with others/family/visitors/staff [] Distress [] Loneliness/isolation [] Abandonment Spirituality of Patient [] Person of [place] [] Attends Confucianist of their [place] [] Believes in Prayer [] Reads Bible or Orthodoxy materials [] There are Spiritual issues to be addressed Wholesaler Interventions [] Prayer [] Active listening [] Non-anxious presence [] Spiritual/emotional support [] Crisis/trauma care [] Spiritual counseling [] Bereavement support [] Provided bereavement packet [] Provided Bible/devotional materials [] Provided toy/stuffed animal, coloring book to patient or family member [] Provided Communion [] Anointing/[place] [] Salvation [] Completed spiritual assessment [] Other: Impact on Illness or Injury [] Angry [] Fearful [] Anxious [] Often cries [] Exhaustion [] Unable to work [] Unable to attend spiritism [] Unable to walk/stand [] Unable to read [] Unable to drive [] Unable to eat/drink [] Unable to sleep [] Unable to be with family [] Patient intubated [] Other: Summary under doctor and staff care Time spent with patient 5 mins
--- NOTE | 2021-08-01 12:19 | P.PN_ITS ---
Subjective Subjective: Interval history: Patient was seen this morning, she is laying on her side, due to continued lower back pain, currently on 2 L, denies any chest pain, no shortness of breath, no lightheadedness, dizziness, no nausea, no vomiting, has not had a bowel movement, is passing gas, Zimmerman catheter is in place Vitals/I&O/Wt Last Vital Signs Temp 99.5 F 08/01/21 07:44 Pulse 80 08/01/21 09:22 Resp 18 08/01/21 09:22 BP 119/77 08/01/21 07:44 Pulse Ox 95 08/01/21 09:22 07/31/21 08/01/21 08/01/21 22:59 06:59 14:59 Intake Total 60 / 1020 110 / 1130 1260 / 1260 Output Total 725 / 1125 150 / 150 Balance -665 / -105 110 / 5 1110 / 1110 Weight last 48 hrs Weight 53.07 kg Physical Exam Const: COMMON NORMALS: no acute distress ORIENTATION/CONSCIOUSNESS: Yes awake, Yes oriented to person, Yes oriented to place and Yes oriented to time Resp: COMMON NORMALS: normal respiratory effort, No retractions, No use of accessory muscles and clear to auscultation bilaterally AUSCULTATION: clear to auscultation bilaterally Cardio: COMMON NORMALS: regular rate, regular rhythm, S1 normal heart sound present and S2 normal heart sound present RATE: regular rate RHYTHM: regular rhythm HEART SOUNDS: S1 normal heart sound present and S2 normal heart sound present GI: COMMON NORMALS: Normal to inspection, nondistended, normoactive bowel sounds present, Soft to palpation and non-tender PALPATION: Yes Soft to palpation Extremity: COMMON NORMALS: no pedal edema Neuro: SENSORIUM/ORIENTATION: Yes oriented to person, Yes oriented to place and Yes oriented to time Urinary Catheter Management^: Zimmerman: Cath Placed During This Visit: yes Reason for Continuing Indwelling Catheter: Perioperative Use in Selected Surgeries Urinary Catheter Date of Insertion: 07/31/21 Urinary Catheter Time of Insertion: 10:00 Data : 08/01/21 06:15 08/01/21 06:15 A&P Assessment and plan (1) Scoliosis: -Status post 1. L1-pelvis fusion 2. L1 to S1 instrumentation 3. Lumbo pelvic fixation / instrumentation 4. computer navigation/ stereo tactic of the spine 5. Bone marrow aspirate right iliac crest 6. use of allograft 7. use of autograft 8. removal of hardware from the spine -By Dr. Perez -Postop day 1 Plan: -Pain control and anticoagulation as per orthopedic service -Monitor respiratory status, currently on 2 L -Hemoglobin 10.6, -Monitor for fevers -Hemovac removed, Zimmerman catheter in place, remove Zimmerman catheter as per protocol -Incentive spirometer, flutter valve -Monitor mentation closely -PT OT -Full code -Lovenox for DVT prophylaxis History of gastric ulcer, patient tells me that on Thursday she had an EGD which showed that she had a gastric ulcer, she is not sure about the biopsy results, she is not sure about her H. pylori status, she is on Lovenox for DVT prophylaxis as above, monitor hemoglobin closely, Protonix, Carafate CAD, no current chest pain, continue to monitor Hypertension, continue home medications CHF, monitor fluid overload, monitor respiratory status Hypothyroidism, continue levothyroxine Hyperlipidemia, continue home meds Status: Chronic (2) Anxiety, generalized: Status: Chronic (3) CHF (congestive heart failure), NYHA class III: Status: Acute (4) CAD (coronary artery disease): Status: Acute Qualifiers: Coronary Disease-Associated Artery/Lesion type: [place] artery [place] vs. transplanted heart: [place] heart Associated angina: without angina Qu alified Code(s): I25.10 - Atherosclerotic heart disease of [place] coronary artery without angina pectoris (5) Mixed hyperlipidemia: Status: Chronic (6) Adult onset hypothyroidism: Status: Chronic (7) Gastric reflux: Status: Chronic Attestations Medical Necessity Statement*: Patient requires hospitalization for scoliosis status post back surgery Procedures Arterial Line Size (Gauge): 20 Coding Level of Care Code Acute Roller Gold Leaf for g Fwd Diagnoses Scoliosis M41.9 Anxiety, generalized F41.1 CHF (congestive heart failure), NYHA class III I50.9 CAD (coronary artery disease) I25.10 Coronary Disease-Associated Artery/Lesion type: [place] artery [place] vs. transplanted heart: [place] heart Associated angina: without angina Mixed hyperlipidemia E78.2 Adult onset hypothyroidism E03.8 Gastric reflux K21.9
[2021-08-01] MEDS: sucralfate 1 gm Tablet PO ×2 (13:24→23:45)
[2021-08-01] MEDS: pantoprazole 40 mg SDV IVP ×2 (13:24→23:45)
--- NOTE | 2021-08-01 13:54 | PC.NURSE ---
Hemovac drained removed per orders. Pt tolerated well.
[2021-08-01] MEDS: levothyroxine 50 mcg Tablet PO (14:45)
[2021-08-01 19:43] LABS: Hematocrit 28.3 % (37.0-47.0); Hemoglobin 9.1 g/dL (11.5-15.3)
[2021-08-02] VITALS: BP 93/48; PULSE 89; RESP 17; TEMP 37.6; O2SAT 93
[2021-08-02 03:42] LABS: Basophils % 0.3 %; Eosinophils # 0.1 10^3/uL (0.0-0.8); Eosinophils % 0.5 %; Hematocrit 26.7 % (37.0-47.0); Hemoglobin 8.6 g/dL (11.5-15.3); Lymphocytes # 0.8 10^3/uL (0.8-4.8); Lymphocytes % 7.8 %; Mean Corpuscular HGB Conc 32.2 g/dL (30.0-36.0); Mean Corpuscular Hemoglobin 31.7 pg (28.0-34.0); Mean Corpuscular Volume 98.5 fl (81-99); Mean Platelet Volume 11.3 fL (7.4-10.4); Monocytes # 0.8 10^3/uL (0.2-0.9); Monocytes % 7.9 %; Neutrophils # 8.24 10^3/uL (1.8-7.7); Neutrophils % 83.1 %; Nucleated Red Blood Cells % 0 %; Platelet Count 126 10^3/cmm (130-400); Red Blood Count 2.71 10^6/uL (4.1-5.3); Red Cell Distribution Width 14.1 % (12.1-15.1); White Blood Count 9.9 10^3/uL (4.0-10.0)
[2021-08-02 04:00] VITALS: BP 99/52; PULSE 94; RESP 17; TEMP 37.6; O2SAT 90
[2021-08-02 04:15] LABS: Alanine Aminotransferase < 5 U/L (0-33); Albumin Level 2.5 g/dL (3.5-5.2); Alkaline Phosphatase 30 IU/L (35-105); Anion Gap 12.2 (5-19); Aspartate Amino Transferase 12 U/L (0-32); Blood Urea Nitrogen 17 mg/dL (8-23); Calcium 8.1 mg/dL (8.5-10.5); Carbon Dioxide 26 mmol/L (22-29); Chloride 103 mmol/L (98-107); Globulin 2.2 g/dL (1.3-4.6); Glomerular Filtration Rate 125.9 mL/min (90-130); Glucose 99 mg/dL (65-115); Magnesium 1.9 mg/dL (1.7-2.3); NT Pro B Type Natriuretic Pept 516 pg/mL (0-125); Osmolality Calculated 288 mOsm/kg (285-295); Potassium 3.2 mmol/L (3.5-5.1); Sodium 138 mmol/L (136-145); Total Bilirubin 0.3 mg/dL (0.15-1.2); Total Protein 4.7 g/dL (6.6-8.7)
[2021-08-02] MEDS: HYDROcodone-acetaminophen 5-325 mg Tablet PO ×2 (05:03→21:55)
[2021-08-02] MEDS: enoxaparin 40 mg/0.4 mL Syringe SUBCUT (05:04)
[2021-08-02 07:41] VITALS: BP 103/56; PULSE 91; RESP 17; TEMP 37.1; O2SAT 92
--- NOTE | 2021-08-02 07:46 | P.PN_ITS ---
Documented by User: CURT Bob 08/02/21 07:48 Subjective Subjective: Interval history: POD 2 Patient improving, Denies SOB or CP Vitals/I&O/Wt Last Vital Signs Temp 98.8 F 08/02/21 07:41 Pulse 91 08/02/21 07:41 Resp 17 08/02/21 07:41 BP 103/56 08/02/21 07:41 Pulse Ox 92 08/02/21 07:41 08/01/21 08/02/21 08/02/21 22:59 06:59 14:59 Intake Total 0 / 2260 720 / 2980 Output Total 400 / 550 325 / 875 100 / 100 Balance -400 / 1710 395 / 2105 -100 / -100 Weight last 48 hrs Weight 117 lb Physical Exam Narrative: EXAM NARRATIVE: She is awake alert incisions healing nicely no signs of infection. She is wiggling both lower extremities he has normal station light touch down both legs. Dorsalis pedis posterior pulses are palpable. Urinary Catheter Management^: Zimmerman: Cath Placed During This Visit: yes, but has since been removed by the nurse Reason for Continuing Indwelling Catheter: Decision to DC Catheter Urinary Catheter Date of Insertion: 07/31/21 Urinary Catheter Time of Insertion: 10:00 Date Urinary Catheter Removed: 08/02/21 Time Urinary Catheter Discontinued: 07:15 Data : 08/02/21 03:15 08/02/21 03:15 A&P Assessment and plan (1) Fusion of spine: Status: Acute Additional A&P Information We will DC the Zimmerman catheter. Encourage physical therapy to continue to mobilize. We will have social organization professor consult for placement. Resume her home fentanyl patch for pain. Hope for discharge in tomorrow a.m. Attestations Medical Necessity Statement*: DC in AM Procedures Arterial Line Size (Gauge): 20 Coding Level of Care Code Acute Director Of Dementia Operations for Chg Fwd Diagnoses Fusion of spine M43.20 Documented by User: Puma Perez DO 08/02/21 09:01 Physical Exam Urinary Catheter Management^: Zimmerman: Cath Placed During This Visit: no Data : 08/02/21 03:15 08/02/21 03:15 A&P Assessment and plan (1) Fusion of spine: Pt seen agree with above A/P Status: Acute Coding Level of Care Code Acute Director Of Dementia Operations for Antonia Medina Diagnoses Fusion of spine M43.20
[2021-08-02] MEDS: FUROsemide 20 mg Tablet PO (08:13)
[2021-08-02] MEDS: cholecalciferol (vitamin D3) 1,000 unit Tablet 1000 UNIT PO (08:14)
[2021-08-02] MEDS: gabapentin 400 mg Capsule 800 MG PO ×3 (08:14→21:54)
[2021-08-02] MEDS: PARoxetine 20 mg Tablet 30 MG PO (08:16)
[2021-08-02] MEDS: docusate sodium 100 mg Capsule PO ×2 (08:17→16:21)
[2021-08-02] MEDS: potassium chloride ER 20 mEq Tablet 40 MEQ PO (10:01)
[2021-08-02] MEDS: lactulose oral liq 20 gm/30 mL UDC PO (10:02)
--- NOTE | 2021-08-02 10:09 | PC.PHAR ---
pt states she takes care of her own medications-notes are made in the pharmacy comments
[2021-08-02 11:44] VITALS: BP 101/68; PULSE 101; RESP 18; TEMP 36.3; O2SAT 94
[2021-08-02] MEDS: sucralfate 1 gm Tablet PO (12:00)
[2021-08-02] MEDS: pantoprazole 40 mg SDV IVP (12:00)
[2021-08-02] MEDS: levothyroxine 50 mcg Tablet PO (14:13)
[2021-08-02] MEDS: nicotine 14 mg Patch 1 PATCH TRANSDERMA (14:13)
--- NOTE | 2021-08-02 14:44 | P.PN_ITS ---
Subjective Subjective: Interval history: Patient was seen this morning, she has not had a bowel movement yet, she normally uses Linzess at home, however we do not carry it here in the hospital, has worked a bit with physical therapy, but has pain no fevers, chills, no nausea, no vomiting Vitals/I&O/Wt Last Vital Signs Temp 97.4 F L 08/02/21 11:44 Pulse 101 H 08/02/21 11:44 Resp 18 08/02/21 11:44 BP 101/68 08/02/21 11:44 Pulse Ox 94 08/02/21 11:44 08/01/21 08/02/21 08/02/21 22:59 06:59 14:59 Intake Total 0 / 2260 720 / 2980 360 / 360 Output Total 400 / 550 325 / 875 100 / 100 Balance -400 / 1710 395 / 2105 260 / 260 Weight last 48 hrs Weight 53.07 kg Physical Exam Const: COMMON NORMALS: no acute distress and patient oriented x3 Resp: COMMON NORMALS: normal respiratory effort, No retractions, No use of accessory muscles and clear to auscultation bilaterally AUSCULTATION: clear to auscultation bilaterally Cardio: COMMON NORMALS: regular rate, regular rhythm, S1 normal heart sound present and S2 normal heart sound present RATE: regular rate RHYTHM: regular rhythm HEART SOUNDS: S1 normal heart sound present and S2 normal heart sound present GI: COMMON NORMALS: Soft to palpation PALPATION: Yes Soft to palpation and No Tenderness to palpation present (GI) OTHER: Abdominal binder in place, decreased bowel sounds Extremity: COMMON NORMALS: no pedal edema Neuro: COMMON NORMALS: patient oriented x3 Psych: COMMON NORMALS: mental status grossly normal Urinary Catheter Management^: Zimmerman: Cath Placed During This Visit: yes, but has since been removed by the nurse Reason for Continuing Indwelling Catheter: Decision to DC Catheter Urinary Catheter Date of Insertion: 07/31/21 Urinary Catheter Time of Insertion: 10:00 Date Urinary Catheter Removed: 08/02/21 Time Urinary Catheter Discontinued: 07:15 Data : 08/02/21 03:15 08/02/21 03:15 A&P Assessment and plan (1) Scoliosis: -Status post 1. L1-pelvis fusion 2. L1 to S1 instrumentation 3. Lumbo pelvic fixation / instrumentation 4. computer navigation/ stereo tactic of the spine 5. Bone marrow aspirate right iliac crest 6. use of allograft 7. use of autograft 8. removal of hardware from the spine -By Dr. Perez -Postop day 1 Plan: -Pain control and anticoagulation as per orthopedic service -Monitor respiratory status, currently on 2 L -Hemoglobin 8.6, recheck hemoglobin in the evening -Monitor for fevers -Hemovac removed -Bowel regimen, lactulose, MiraLAX, Colace, enema as needed -Incentive spirometer, flutter valve -Monitor mentation closely -PT OT -Full code -Lovenox for DVT prophylaxis History of gastric ulcer, patient tells me that on Thursday she had an EGD which showed that she had a gastric ulcer, she is not sure about the biopsy results, she is not sure about her H. pylori status, she is on Lovenox for DVT prophylaxis as above, monitor hemoglobin closely, Protonix, Carafate CAD, no current chest pain, continue to monitor Hypertension, continue home medications CHF, monitor fluid overload, monitor respiratory status Hypothyroidism, continue levothyroxine Hyperlipidemia, continue home meds Status: Chronic (2) Anxiety, generalized: Status: Chronic (3) CHF (congestive heart failure), NYHA class III: Status: Acute (4) CAD (coronary artery disease): Status: Acute Qualifiers: Coronary Disease-Associated Artery/Lesion type: [place] artery [place] vs. transplanted heart: [place] heart Associated angina: without angina Qualified Code(s): I25.10 - Atherosclerotic heart disease of [place] coronary artery without angina pectoris (5) Mixed hyperlipidemia: Status: Chronic (6) Adult onset hypothyroidism: Status: Chronic (7) Gastric reflux: Status: Chronic Attestations Medical Necessity Statement*: Patient requires hospitalization for back surgery, anemia Procedures Arterial Line Size (Gauge): 20 Coding Level of Care Code Acute Director Of Digital Platforms for g Fwd Diagnoses Scoliosis M41.9 Anxiety, generalized F41.1 CHF (congestive heart failure), NYHA class III I50.9 CAD (coronary artery disease) I25.10 Coronary Disease-Associated Artery/Lesion type: [place] artery [place] vs. transplanted heart: [place] heart Associated angina: without angina Mixed hyperlipidemia E78.2 Adult onset hypothyroidism E03.8 Gastric reflux K21.9
[2021-08-02 15:25] LABS: Hematocrit 25.6 % (37.0-47.0); Hemoglobin 8.3 g/dL (11.5-15.3)
[2021-08-02 15:52] VITALS: BP 114/67; PULSE 99; RESP 18; TEMP 37.9; O2SAT 94
[2021-08-02] MEDS: acetaminophen 325 mg Tablet 650 MG PO (16:20)
[2021-08-02] MEDS: carvedilol 12.5 mg Tablet PO (16:20)
[2021-08-02] MEDS: polyethylene glycol 3350 Pkt 17 gm PO (16:21)
[2021-08-02 20:00] VITALS: BP 100/59; PULSE 84; RESP 18; TEMP 36.9; O2SAT 92
[2021-08-02] MEDS: baclofen 10 mg Tablet 20 MG PO (21:55)
[2021-08-02] MEDS: ketorolac 30 mg/mL INJ IVP (23:48)
[2021-08-03] VITALS: BP 90/49; PULSE 71; RESP 20; TEMP 36.6; O2SAT 98
[2021-08-03] MEDS: sucralfate 1 gm Tablet PO (00:40)
[2021-08-03] MEDS: pantoprazole 40 mg SDV IVP (01:17)
[2021-08-03] MEDS: diphenhydrAMINE 25 mg Capsule PO ×3 (01:58→13:25)
[2021-08-03 04:00] VITALS: BP 87/54; PULSE 76; RESP 19; TEMP 36.8; O2SAT 99
[2021-08-03] MEDS: enoxaparin 40 mg/0.4 mL Syringe SUBCUT (06:14)
[2021-08-03 06:21] LABS: Basophils % 0.2 %; Eosinophils # 0.3 10^3/uL (0.0-0.8); Eosinophils % 3.8 %; Hematocrit 24.2 % (37.0-47.0); Hemoglobin 7.7 g/dL (11.5-15.3); Lymphocytes % 15.2 %; Mean Corpuscular HGB Conc 31.8 g/dL (30.0-36.0); Mean Corpuscular Hemoglobin 31.3 pg (28.0-34.0); Mean Corpuscular Volume 98.4 fl (81-99); Mean Platelet Volume 11.7 fL (7.4-10.4); Monocytes # 0.3 10^3/uL (0.2-0.9); Monocytes % 4.5 %; Neutrophils # 5.01 10^3/uL (1.8-7.7); Neutrophils % 75.8 %; Nucleated Red Blood Cells % 0 %; Platelet Count 109 10^3/cmm (130-400); Red Blood Count 2.46 10^6/uL (4.1-5.3); Red Cell Distribution Width 13.8 % (12.1-15.1); White Blood Count 6.6 10^3/uL (4.0-10.0)
[2021-08-03 06:56] LABS: Alanine Aminotransferase 6 U/L (0-33); Albumin Level 2.6 g/dL (3.5-5.2); Alkaline Phosphatase 35 IU/L (35-105); Anion Gap 6.5 (5-19); Aspartate Amino Transferase 11 U/L (0-32); Blood Urea Nitrogen 13 mg/dL (8-23); Calcium 8.2 mg/dL (8.5-10.5); Carbon Dioxide 30 mmol/L (22-29); Chloride 101 mmol/L (98-107); Globulin 1.9 g/dL (1.3-4.6); Glomerular Filtration Rate 125.9 mL/min (90-130); Glucose 89 mg/dL (65-115); Magnesium 1.7 mg/dL (1.7-2.3); NT Pro B Type Natriuretic Pept 406 pg/mL (0-125); Osmolality Calculated 278 mOsm/kg (285-295); Potassium 3.5 mmol/L (3.5-5.1); Sodium 134 mmol/L (136-145); Total Bilirubin 0.4 mg/dL (0.15-1.2); Total Protein 4.5 g/dL (6.6-8.7)
[2021-08-03 07:35] VITALS: BP 108/67; PULSE 69; RESP 18; TEMP 36.9; O2SAT 92
[2021-08-03] MEDS: nicotine 14 mg Patch 1 PATCH TRANSDERMA (07:46)
[2021-08-03] MEDS: PARoxetine 20 mg Tablet 30 MG PO (07:46)
[2021-08-03] MEDS: carvedilol 12.5 mg Tablet PO (07:46)
[2021-08-03] MEDS: docusate sodium 100 mg Capsule PO (07:46)
[2021-08-03] MEDS: cholecalciferol (vitamin D3) 1,000 unit Tablet 1000 UNIT PO (07:46)
[2021-08-03] MEDS: gabapentin 400 mg Capsule 800 MG PO (07:46)
[2021-08-03] MEDS: FUROsemide 20 mg Tablet PO (07:47)
--- NOTE | 2021-08-03 09:34 | P.DS_ITS ---
Discharge Providers Date of Admission: 07/31/21 14:05 Date of Discharge: August 03, 2021 Attending Provider at Admission: Puma Perez DO Attending Provider at Discharge: Puma Perez DO Primary Care Provider: TONI Fritz Diagnoses at Discharge Discharge Diagnosis (1) Scoliosis: Status: Chronic (2) Anxiety, generalized: Status: Chronic (3) CHF (congestive heart failure), NYHA class III: Status: Acute (4) CAD (coronary artery disease): Status: Acute Qualifiers: Coronary Disease-Associated Artery/Lesion type: [place] artery [place] vs. transplanted heart: [place] heart Associated angina: without angina Qualified Code(s): I25.10 - Atherosclerotic heart disease of [place] coronary artery without angina pectoris (5) Mixed hyperlipidemia: Status: Chronic (6) Adult onset hypothyroidism: Status: Chronic (7) Gastric reflux: Status: Chronic Reason for Visit Reason for Visit: PSF t4-pelvis with Hardware removal Hospital Course Hospital Course Patient was admitted to the hospital on 07/31/2021. She had a revision of her scoliosis surgery. She had broken her rods and we removed her broken hardware and attached onto her previous construct. Her hospital course was uneventful she remained in the hospital for 3 days for pain control. She will be discharged on 08/03/2021 to home. Physical Exam Narrative: EXAM NARRATIVE: Resting comfortably in bed no complaints. Urinary Catheter Management^: Zimmerman: Cath Placed During This Visit: yes, but has since been removed by the nurse Reason for Continuing Indwelling Catheter: Decision to DC Catheter Urinary Catheter Date of Insertion: 07/31/21 Urinary Catheter Time of Insertion: 10:00 Date Urinary Catheter Removed: 08/02/21 Time Urinary Catheter Discontinued: 07:15 Discharge Data Data Completed and Pending: Completed Studies During Hospitalization Category Date Time Status XR lumbar spine 1 V [id number] Routine Exams 07/31/21 Completed Pending at discharge Category Date Time Status Hemoglobin and He matocrit Routine Lab 08/03/21 12:00 Ordered Labs from last 24 hours 08/03/21 08/03/21 08/02/21 05:48 05:48 15:00 WBC 6.6 RBC 2.46 L Hgb 7.7 L 8.3 L Hct 24.2 L 25.6 L MCV 98.4 MCH 31.3 MCHC 31.8 RDW 13.8 Plt Count 109 L MPV 11.7 H Neut % (Auto) 75.8 Lymph % (Auto) 15.2 [place] % (Auto) 4.5 Eos % (Auto) 3.8 Baso % (Auto) 0.2 Neut # (Auto) 5.01 Lymph # (Auto) 1.0 [place] # (Auto) 0.3 Eos # (Auto) 0.3 Baso # (Auto) 0.0 Nucleated RBC % (a uto) 0 Nucleated RBCs # 0.0 Sodium 134 L Potassium 3.5 Chloride 101 Carbon Dioxide 30 H Anion Gap 6.5 BUN 13 Creatinine 0.5 GFR Calculation 125.9 Glucose 89 Calculated Osmolal ity 278 L Calcium 8.2 L Phosphorus 1.0 L Magnesium 1.7 Total Bilirubin 0.4 AST 11 ALT 6 Alkaline Phosphata se 35 NT-Pro-B Natriuret Pep 406 H Total Protein 4.5 L Albumin 2.6 L Globulin 1.9 Vitals: Last Vital Signs Temp 98.4 F 08/03/21 07:35 Pulse 69 08/03/21 07:35 Resp 18 08/03/21 07:35 BP 108/67 08/03/21 07:35 Pulse Ox 92 08/03/21 07:35 Discharge Plan Discharge Patient Disposition: Home Condition: Stable Prescriptions: New hydrocodone-acetaminophen 10-325 mg tablet 1 tab PO Q6H PRN (Reason: pain) 7 Days Qty: 40 RF: 0 Continued magnesium oxide 250 mg magnesium tablet 250 mg PO DAILY@1500 RF: 0 cholecalciferol (vitamin D3) 1,000 unit capsule 1,000 unit PO DAILY@0800 RF: 0 baclofen 10 mg tablet See Rx Instructions .ROUTE .COMPLEX RF: 0 fentanyl 75 mcg/hr patch 72 hour 1 patch TRANSDERMA Q72H RF: 0 cyanocobalamin (vitamin B-12) 1,000 mcg/mL solution See Rx Instructions .ROUTE .COMPLEX Qty: 2 RF: 2 fenofibrate micronized 134 mg capsule 134 mg PO DAILY@0800 Qty: 30 RF: 2 furosemide 20 mg tablet 20 mg PO DAILY@0800 Qty: 30 RF: 2 levothyroxine 50 mcg tablet 50 mcg PO DAILY@1500 Qty: 30 RF: 2 paroxetine HCl 30 mg tablet 30 mg PO DAILY@0800 Qty: 30 RF: 2 (DME) BD Luer-Rae Syringe 3 mL 25 gauge x 1 syringe See Rx Instructions .ROUTE .MEDSUPPLY Qty: 5 RF: 2 olmesartan 40 mg tablet 40 mg PO DAILY@0800 Qty: 30 RF: 3 (DME) E0748 Bone Growth Stimulator See Rx Instructions .Route .MEDSUPPLY Qty: 1 RF: 0 omeprazole 40 mg capsule,delayed release(DR/EC) 40 mg PO DAILY RF: 0 nifedipine 30 mg tablet extended release 24hr 30 mg PO QAM RF: 0 gabapentin 600 mg tablet See Rx Instructions .ROUTE .COMPLEX RF: 0 carvedilol 12.5 mg tablet 12.5 mg PO BID@ RF: 0 hydrocodone-acetaminophen 10-325 mg tablet 1 tab PO QID PRN (Reason: Pain) RF: 0 meclizine 25 mg tablet 25 mg PO QID PRN (Reason: Nausea) RF: 0 yrhnxsrama-ozluqba-hnoyjtsq 50-325-40 mg capsule 1 cap PO DAILY PRN (Reason: Migraine Headache) RF: 0 Linzess 145 mcg capsule 145 mcg PO BEDTIME RF: 0 potassium gluconate 595 mg (99 mg) Tablet 595 mg PO TID@, RF: 0 Discharge Orders: Discharge Order (Routine); Ordered 08/03/21 Ordered By: Puma Perez Referrals: [facility] [Outside] Puma Perez, DO [Physician] - (Please call Thursday to schedule a follow up appointment. ) Discharge Diet: Advance as tolerated Discharge Activity: Limit activity as instructed Patient Instructions: Hydrocodone/Acetaminophen (By mouth) (Vicodin, [place], Lortab), Lumbar Spinal Fusion (GEN), Opioid Safety Activity Restrictions/Additional Instructions: Thank you for [facility] for your care! The following is a list of instructions, from your provider, to follow upon your discharge to ensure you have the optimal recovery from your recent injury orsurgery. Follow-up care is a flores part of your treatment and safety. Be sure to make and go to all appointments, and call your doctor if you are having problems. If you do not already have a follow-up appointment made, call Dr. Perez office in the next 1-3 days to make follow up appointment for thursdayAugust 06 at [phone]. It is also a good idea to know your test results and keep a list of the medicines you take. Medications will be prescribed for you at your provider's discretion. These medications are to be used as instructed; if they are taken more often that prescribed they will not be refilled early and in most cases will not be refilled at all. > When a refill is needed,you should contact jamia garza 2-3 business days before your prescription runs out. Medications will NOT be refilled by production engineer providers after hours! > Many pain medications contain Tylenol (Acetaminophen). Do not consume more than 4,000 mg of Tylenol per day in total with any combination ofmedications. > Pain medications can cause constipation. Please use an over the counter stool softener as directed, while taking pain medications. Consulty our local pharmacist with questions or recommendations on stool softeners. If constipation persists, contact our office or your primary care provider. > While under our care,you are not to receive pain medications or other controlled substances from any other provider unless our office is notified and approves. Any attempts to do so will result in refusal to prescribe any further pain medications and possible dismissal from our practice. ? Your wound and/or dressing should remain on until seen in clinic ? Showering is permitted, however we ask that you do not take a bath, sit in a whirlpool / Jacuzzi, or go swimming for 1 month. For only the first 2 days after surgery, lt wilt be necessary for you to cover your wound/dressing with plastic and tape to keep it dry. ? Walking is essential for the healing process after surgery. We would like you to slowly advance your walking. This should be done on relatively flat clear ground (inside or out) or can be done on a treadmill. Remember this goal does not have to happen all at once, slowly increase your distance and duration. This can be broken into more more than one walk per day as tolerated. Patients who walk as directed after surgery rarely require Physical Therapy. In the unlikely event this issue arises your provider will direct hospital staff to make the appropriate arrangements. ? No lifting over 5 pounds {a gallon of milk) or bending/twisting until further notice. Each of these activities places an unnecessary amount of stress onto the body and can impede the delicate healing process. > Instead of bending at the waist, keep your back straight and bend at the knees. > Instead of twisting your torso, keep your back straight and turn your entire body with your feet. ? You may sleep in any position which makes you comfortable. Many patients find comfort sleeping in a reclining chair. It is not abnormal to have difficulty sleeping for the first several weeks following your surgery. We recommend trying Benadry! or Tylenol PM as directed to help with your sleeping difficulties. Both medications are over the counter and available withoutpres cription. ? NO SMOKING!!! Smoking dramatically increases the probability of developing postoperative wound infections. ? Common complaints after lumbar and/or thoracic spine surgery include, but are not limited to: numbness and/or tingling in the legs, pain around the incision and surrounding tissues, muscle spasms, or stiffness of the middle to low back. Contact our office if these symptoms persist or if an acute change occurs. ? No driving for the first 3-5days, and not while taking narcotics [] until seen at your follow-up appointment and cleared. There are no restrictions for riding on short trips, however if you take a longer trip, arrangements should be made to make regular stops to get out of the vehicle and stretch . ? Swelling is an unfortunate event that will take place with any surgery and is the primary source of your postoperative discomfort. While walking and regular approved activities helps control inflammation, there are additional steps you can take to minimizeswelling. > Place ice over the surgical site and surrounding tissue for twenty minutes, followed by applying a low/medium heat (heating pad) for an additional twenty minutes every 1-2 hours as needed for painrelief. > You may use of over the counter anti-inflammatory medications (Ibuprofen, Motrin, Aleve, Advil, etc) as directed on the package label. These types of medicines wm significantly reduce the amount of discomfort you experience after surgery from swelling. It should be noted that if you have and allergy to any of these medications, or a history of ulcers or kidney disease you should consult you primary care provider prior to starting these medications. Discharge Attestations Time Spent in Discharge Care*: less than 30 min Quality Metrics Clinical Quality Measures During this hospital stay, did patient experience: None Coding Level of Care Code Acute [facility] note Diagnoses Scoliosis M41.9 Anxiety, generalized F41.1 CHF (congestive heart failure), NYHA class III I50.9 CAD (coronary artery disease) I25.10 Coronary Disease-Associated Artery/Lesion type: [place] artery [place] vs. transplanted heart: [place] heart Associated angina: without angina Mixed hyperlipidemia E78.2 Adult onset hypothyroidism E03.8 Gastric reflux K21.9
--- NOTE | 2021-08-03 09:40 | PC.SOCIAL ---
IMM update IMM updated with patient. Verbalized an understanding. Copy Pg2 provided. Initialled,dated, timed, and placed in chart.
--- NOTE | 2021-08-03 11:28 | P.PN_ITS ---
Subjective Subjective: Interval history: Patient was seen this morning, she has no complaints, she is ready to go home, no chest pain, no palpitations, has not had a bowel movement, but she tells me that she is passing gas, she only takes Linzess at home, but we do not have it here in the hospital, she tells me that she goes home and takes that she should have a bowel movement Vitals/I&O/Wt Last Vital Signs Temp 98.4 F 08/03/21 07:35 Pulse 69 08/03/21 07:35 Resp 18 08/03/21 07:35 BP 108/67 08/03/21 07:35 Pulse Ox 92 08/03/21 07:35 08/02/21 08/03/21 08/03/21 22:59 06:59 14:59 Intake Total 240 / 600 480 / 1080 240 / 240 Balance 240 / 500 480 / 980 240 / 240 Physical Exam Const: COMMON NORMALS: no acute distress Resp: COMMON NORMALS: normal respiratory effort, No retractions, No use of accessory muscles and clear to auscultation bilaterally AUSCULTATION: clear to auscultation bilaterally Cardio: COMMON NORMALS: regular rate, regular rhythm, S1 normal heart sound present and S2 normal heart sound present RATE: regular rate RHYTHM: regular rhythm HEART SOUNDS: S1 normal heart sound present and S2 normal heart sound present GI: COMMON NORMALS: Normal to inspection, nondistended, normoactive bowel sounds present, Soft to palpation and non-tender PALPATION: Yes Soft to palpation Extremity: COMMON NORMALS: no pedal edema Urinary Catheter Management^: [place]: Cath Placed During This Visit: yes, but has since been removed by the nurse Reason for Continuing Indwelling Catheter: Decision to DC Catheter Urinary Catheter Date of Insertion: 07/31/21 Urinary Catheter Time of Insertion: 10:00 Date Urinary Catheter Removed: 08/02/21 Time Urinary Catheter Discontinued: 07:15 Data : 08/03/21 05:48 08/03/21 05:48 A&P Assessment and plan (1) Scoliosis: -Status post 1. L1-pelvis fusion 2. L1 to S1 instrumentation 3. Lumbo pelvic fixation / instrumentation 4. computer navigation/ stereo tactic of the spine 5. Bone marrow aspirate right iliac crest 6. use of allograft 7. use of autograft 8. removal of hardware from the spine -By Dr. Perez Plan: -Pain control and anticoagulation as per orthopedic service -Monitor respiratory status, currently on 2 L -Hemoglobin 7.7, recheck at noon, if with the reason limits will discharge home, follow-up with primary care provider recheck hemoglobin next week -Monitor for fevers -Hemovac removed -Bowel regimen, lactulose, MiraLAX, Colace, enema as needed -Incentive spirometer, flutter valve -Monitor mentation closely -PT OT -Full code -Lovenox for DVT prophylaxis History of gastric ulcer, patient tells me that on Thursday she had an EGD which showed that she had a gastric ulcer, she is not sure about the biopsy results, she is not sure about her H. pylori status, she is on Lovenox for DVT prophylaxis as above, monitor hemoglobin closely, Protonix, Carafate CAD, no current chest pain, continue to monitor Hypertension, continue home medications CHF, monitor fluid overload, monitor respiratory status Hypothyroidism, continue levothyroxine Hyperlipidemia, continue home meds Status: Chronic (2) Anxiety, generalized: Status: Chronic (3) CHF (congestive heart failure), NYHA class III: Status: Acute (4) CAD (coronary artery disease): Status: Acute Qualifiers: Coronary Disease-Associated Artery/Lesion type: [place] artery [place] vs. transplanted heart: [place] heart Associated angina: without angina Qualified Code(s): I25.10 - Atherosclerotic heart disease of [place] coronary artery without angina pectoris (5) Mixed hyperlipidemia: Status: Chronic (6) Adult onset hypothyroidism: Status: Chronic (7) Gastric reflux: Status: Chronic Attestations Medical Necessity Statement*: Patient will be discharged today, Procedures Arterial Line Size (Gauge): 20 Coding Level of Care Code Acute [employer] for [facility]g Fwd Diagnoses Scoliosis M41.9 Anxiety, generalized F41.1 CHF (congestive heart failure), NYHA class III I50.9 CAD (coronary artery disease) I25.10 Coronary Disease-Associated Artery/Lesion type: [place] artery [place] vs. transplanted heart: [place] heart Associated angina: without angina Mixed hyperlipidemia E78.2 Adult onset hypothyroidism E03.8 Gastric reflux K21.9
[2021-08-03 11:34] VITALS: BP 92/53; PULSE 83; RESP 17; TEMP 36.9; O2SAT 91
[2021-08-03 12:26] LABS: Hematocrit 25.2 % (37.0-47.0); Hemoglobin 8.1 g/dL (11.5-15.3)
--- NOTE | 2021-08-08 09:57 | PC.SOCIAL ---
discharge follow up call made, spoke with patient. patient reports she had a spell and came back to the ER on 08-04. patient was seen and released with no changes. patient reports she is feeling good today. patient had a follow up appointment with Dr. Perez on 08-06 and will follow up again next week. patient has follow up with pcp today. patient is taking hydrocodone 10-325 q 6 hours with relief from pain. patient denies any redness or drainage from incision. [facility] called and spoke with and will set up visits if patient wishes, she will call [facility] back. no questions voiced from patient at this time.
== END 2021-08-03 14:23 | disposition home health service (06) | DRG 460 ==
LOC: MEDSURG 16:59
PROVIDERS: Family Medicine; Admitting Provider Orthopaedic Surgery; PCP Nurse Practitioner; Visit Provider Orthopaedic Surgery
PROC: 0SG0071 Fusion of Lumbar Vertebral Joint with Autologous Tissue Substitute, Posterior Approach, Posterior Column, Open Approach (ICD-10-PCS; CPT 22612; principal; 2021-07-31 09:50)
DX: T84.018A Broken internal joint prosthesis, other site, initial encounter (principal); Y65.8 Other specified misadventures during surgical and medical care; E03.9 Hypothyroidism, unspecified; I25.10 Atherosclerotic heart disease of native coronary artery without angina pectoris; E78.2 Mixed hyperlipidemia; F41.1 Generalized anxiety disorder; K21.9 Gastro-esophageal reflux disease without esophagitis; M41.9 Scoliosis, unspecified; I11.0 Hypertensive heart disease with heart failure; I50.9 Heart failure, unspecified
CPT/HCPCS: 36415; 51702; 72020; 76000; 80053; 83735; 83880; 84100; 85014; 85018; 85025; 86850; 86900; 87635; 93005; 96372; 97116; 97162; 97530; C1713; C9113; J0330; J0690; J1100; J1200; J1644; J1650; J1885; J2405; J2704; J3010; J3370; J3490; J7030; P9041

== ENCOUNTER 2021-08-04 13:19 | Emergency (ER) | payer MEDICARE, MEDICAID, SELFPAY ==
[2021-08-04 13:30] VITALS: BP 82/50; PULSE 74; RESP 18; TEMP 37; O2SAT 96; BMI 17.4
--- NOTE | 2021-08-04 13:31 | W.ED.SYNCOPE ---
HPI - Syncope General: Chief Complaint: Syncope Stated Complaint: SYNCOPE Time Seen by Provider: 08/04/21 13:28 History of Present Illness: HPI narrative: Ms. Lux is a 61-year-old lady with significant past medical history of hypertension, hyperlipidemia, CKD, CHF, and scoliosis status post repair with fractured rods and subsequent recent hospitalization for revision who presents to the emergency department due to syncope x2. She was discharged from the hospital yesterday morning after a mildly prolonged hospital course postoperatively due to pain control. She reports poor p.o. intake during this time however was able to eat breakfast prior to discharge. She felt mildly lightheaded positionally yesterday however today she had a more severe episode with near complete syncope that brought her to her knees. Symptoms are worse with positional changes and moderate to severe in intensity. EMS arrived and found that her blood pressure was low. She subsequently had another witnessed event upon standing. She denies blood loss. She denies infectious symptoms. No other specific exacerbating or relieving factors identified. Review of Systems General: Reports: 10 or more systems reviewed and unremarkable except in HPI and below PFSH ED PFSH: Medical History Adult onset hypothyroidism Anxiety, generalized CAD (coronary artery disease) CHF (congestive heart failure), NYHA class III Chronic bilateral low back pain with bilateral sciatica Constipation, slow transit Essential (primary) hypertension Fibromyalgia muscle pain 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 Gastric reflux Hypotension, unspecified Mixed hyperlipidemia Neuropathic pain of both legs Osteopenia of multiple sites Vitamin B12 deficiency Vitamin D deficiency Surgical History History of back surgery History of cholecystectomy History of hysterectomy History of tonsillectomy Family History Other Arthritis Coronary artery disease involving [place] coronary artery of [place] heart with unstable angina pectoris Diabetes Hypertension Thyroid condition Social History Second hand smoke exposure: Yes Smoking risk assessment/counseling performed?: Yes Alcohol intake: never Desire information about alcohol rehabilitation?: No Counseling given: No Desire information about substance/drug rehabilitation?: No Counseling given: No Adopted: No Caregiver/support person: Yes Lives independently: No Household members: family Housing: House Marital status: service: No Current occupational status: disabled History of recent travel: No Current gender identity: Female Physical Exam Narrative: EXAM NARRATIVE: GENERAL/CONSTITUTIONAL -ill-appearing. Pale and mildly diaphoretic Eyes - PERRL, no conjunctival injection ENMT - Atraumatic external nose and ears. Moist mucous membranes NECK - supple. trachea midline CARDIOVASCULAR - regular rate and rhythm. Peripheral pulses 2+ and equal RESPIRATORY -clear to auscultation bilaterally. No retractions or accessory muscle use. ABDOMEN/GI - Nontender/Nondistended. MSK - Extremities without obvious deformity or tenderness to palpation SKIN -cool, no rashes. Surgical site appears without complication NEURO - alert and appropriately oriented. Cranial nerves II through XII intact, no focal neurologic deficits. PSYCH - Appropriate mood and affect Course ED course: - Patient was seen and evaluated by me at bedside - Patient placed on cardiac monitors, IV access obtained - Initial evaluation notable for ill appearance, cool, clammy extremities. Hypotensive. -Additional fluids ordered - Labs notable for macrocytic anemia. Mild hypokalemia with replenishment ordered, likely dehydration present. Baseline troponin mildly elevated and mildly elevated BNP. - Imaging notable for no significant abnormality to explain symptoms on CT head or neck, hardware appears intact on x-ray. Despite initial volume resuscitation patient continues to be hypotensive, therefore additional imaging warranted, no evidence of hemorrhage or reason for persistent hypotension. Unfortunately noncontrasted study had to be ordered due to anaphylaxis allergy to IV contrast dye. - Upon serial reexamination after treatment the patient was mildly improved in clinical appearance however blood pressure remains somewhat low. - Results of ED evaluation were discussed with patient including potential causes of her symptoms. I recommended inpatient admission which the patient was adamantly against. I explained that she almost certainly would need blood transfusion however repeat labs were also necessary in the morning. She verbalized understanding however continued to decline admission. -Patient has capacity make medical decisions at this time. She understands the risks and benefits of admission versus discharge. She understands she may return to the emergency department at any point for any reason. - Patient left AGAINST MEDICAL ADVICE. Vital Signs: Vital signs: Vital Signs Temperature 98.6 F 08/04/21 13:30 Pulse Rate 78 08/04/21 14:53 Respiratory Rate 16 08/04/21 14:53 Blood Pressure 83/49 08/04/21 17:00 Pulse Oximetry 95 08/04/21 17:00 MDM - Syncope Medical Records: Attestation: I reviewed the patient's medical records. Lab Data: Attestation: I reviewed the patient's lab results. Labs: Lab Results 08/04/21 08/04/21 08/04/21 14:53 14:53 14:53 WBC 6.7 10^3/uL 10^3/ uL (4.0-10.0) RBC 2.43 10^6/uL L 10 ^6/uL (4.1-5.3) Hgb 7.7 g/dL L g/dL (11.5-15.3) Hct 24.1 % L % (37.0-47.0) MCV 99.2 fl H fl (81-99) MCH 31.7 pg pg (28.0-34.0) MCHC 32.0 g/dL g/dL (30.0-36.0) RDW 13.8 % % (12.1-15.1) Plt Count 135 10^3/cmm 10^3 /cmm (130-400) MPV 11.6 fL H fL (7.4-10.4) Neut % (Auto) 80.1 % % Lymph % (Auto) 10.4 % % [place] % (Auto) 4.1 % % Eos % (Auto) 4.7 % % Baso % (Auto) 0.2 % % Neut # (Auto) 5.34 10^3/uL 10^3 /uL (1.8-7.7) Lymph # (Auto) 0.7 10^3/uL L 10^ 3/uL (0.8-4.8) [place] # (Auto) 0.3 10^3/uL 10^3/ uL (0.2-0.9) Eos # (Auto) 0.3 10^3/uL 10^3/ uL (0.0-0.8) Baso # (Auto) 0.0 10^3/uL 10^3/ uL (0.0-0.1) Nucleated RBC % (a uto) 0 % % Nucleated RBCs # 0.0 /100WBC /100W BC Sodium 135 mmol/L L mmol /L (136-145) Potassium 3.2 mmol/L L mmol /L (3.5-5.1) Chloride 100 mmol/L mmol/L (98-107) Carbon Dioxide 24 mmol/L mmol/L (22-29) Anion Gap 14.2 (5-19) BUN 17 mg/dL mg/dL (8-23) Creatinine 0.6 mg/dL mg/dL (0.5-0.9) GFR Calculation 102.0 mL/min mL/m in (90-130) Glucose 75 mg/dL mg/dL (65-115) Calculated Osmolal ity 280 mOsm/kg L mOs m/kg (285-295) Lactate 1.3 mmol/L mmol/L (0.5-2.2) Calcium 8.0 mg/dL L mg/dL (8.5-10.5) Total Bilirubin 0.3 mg/dL mg/dL (0.15-1.2) AST 13 U/L U/L (0-32) ALT 8 U/L U/L (0-33) Alkaline Phosphata se 42 IU/L IU/L (35-105) Troponin T Baselin e Total Protein 4.9 g/dL L g/dL (6.6-8.7) Albumin 2.6 g/dL L g/dL (3.5-5.2) Globulin 2.3 g/dL g/dL (1.3-4.6) TSH 0.96 uIU/mL uIU/m L (0.27-4.20) Urine Color Urine Appearance Urine pH Ur Specific Gravit y Urine Protein Urine Glucose (UA) Urine Ketones Urine Blood Urine Nitrate Urine Bilirubin Urine Urobilinogen Ur Leukocyte Flaquita ase 08/04/21 08/04/21 14:53 16:45 WBC RBC Hgb Hct MCV MCH MCHC RDW Plt Count MPV Neut % (Auto) Lymph % (Auto) [place] % (Auto) Eos % (Auto) Baso % (Auto) Neut # (Auto) Lymph # (Auto) [place] # (Auto) Eos # (Auto) Baso # (Auto) Nucleated RBC % (a uto) Nucleated RBCs # Sodium Potassium Chloride Carbon Dioxide Anion Gap BUN Creatinine GFR Calculation Glucose Calculated Osmolal ity Lactate Calcium Total Bilirubin AST ALT Alkaline Phosphata se Troponin T Baselin e 14 ng/L H ng/L (0-10) Total Protein Albumin Globulin TSH Urine Color Straw (Yellow) Urine Appearance Clear (CLEAR) Urine pH 7 (5-7) Ur Specific Gravit y 1.000 L (1.005-1.030) Urine Protein Neg (Negative) Urine Glucose (UA) Norm (Normal) Urine Ketones Negative (Negative) Urine Blood Neg (Negative) Urine Nitrate Negative (Negative) Urine Bilirubin Neg (Negative) Urine Urobilinogen Norm mg/dL mg/dL (Negative) Ur Leukocyte Flaquita ase Negative (Negative) EKG Data^: EKG 1: Attestation: I personally reviewed and interpreted this EKG as follows: EKG interpretation date: 08/04/21 EKG interpretation time: 13:37 Interpretation: Twelve-lead EKG shows a regular sinus rhythm at a rate of 72. MI interval 168, QRS duration 86, QTc 408. Normal axis. Interpretation: Sinus rhythm, low voltage. EKG 2: Attestation: I personally reviewed and interpreted this EKG as follows: EKG interpretation date: 08/04/21 EKG interpretation time: 15:19 Interpretation: Twelve-lead EKG shows regular sinus rhythm at a rate of 75. MI interval 136, QRS duration 84, QTc 402. Normal axis. Interpretation: Sinus rhythm, similar to prior. Critical Care Time Critical Care Time: Critical Care Time: Yes Total Critical Care Time: 35 Attestation: This case had a high probability of a clinically significant, sudden, or life threatening deterioration of this patient's condition which required my full and direct attention, intervention and personal management. Discharge Plan Discharge Patient Disposition: Left Against Medical Advice Prescriptions: No Action magnesium oxide 250 mg magnesium tablet 250 mg PO DAILY@1500 RF: 0 cholecalciferol (vitamin D3) 1,000 unit capsule 1,000 unit PO DAILY@0800 RF: 0 baclofen 10 mg tablet See Rx Instructions .ROUTE .COMPLEX RF: 0 fentanyl 75 mcg/hr patch 72 hour 1 patch TRANSDERMA Q72H RF: 0 cyanocobalamin (vitamin B-12) 1,000 mcg/mL solution See Rx Instructions .ROUTE .COMPLEX Qty: 2 RF: 2 fenofibrate micronized 134 mg capsule 134 mg PO DAILY@0800 Qty: 30 RF: 2 furosemide 20 mg tablet 20 mg PO DAILY@0800 Qty: 30 RF: 2 levothyroxine 50 mcg tablet 50 mcg PO DAILY@1500 Qty: 30 RF: 2 paroxetine HCl 30 mg tablet 30 mg PO DAILY@0800 Qty: 30 RF: 2 (DME) BD Luer-Rae Syringe 3 mL 25 gauge x 1 syringe See Rx Instructions .ROUTE .MEDSUPPLY Qty: 5 RF: 2 (DME) Duoderm See Rx Instructions .Route .MEDSUPPLY Qty: 10 RF: 0 olmesartan 40 mg tablet 40 mg PO DAILY@0800 Qty: 30 RF: 3 (DME) E0748 Bone Growth Stimulator See Rx Instructions .Route .MEDSUPPLY Qty: 1 RF: 0 omeprazole 40 mg capsule,delayed release(DR/EC) 40 mg PO DAILY RF: 0 nifedipine 30 mg tablet extended release 24hr 30 mg PO QAM RF: 0 gabapentin 600 mg tablet See Rx Instructions .ROUTE .COMPLEX RF: 0 carvedilol 12.5 mg tablet 12.5 mg PO BID@ RF: 0 meclizine 25 mg tablet 25 mg PO QID PRN (Reason: Dizziness) RF: 0 kdjvzmilyo-ouasbej-nivbjuqz 50-325-40 mg capsule 1 cap PO DAILY PRN (Reason: Migraine Headache) RF: 0 Linzess 145 mcg capsule 145 mcg PO BEDTIME RF: 0 hydrocodone-acetaminophen 10-325 mg tablet 1 tab PO Q6H PRN (Reason: pain) 7 Days Qty: 40 RF: 0 Vitamin B-12 100 mcg Tablet 100 mcg PO DAILY RF: 0 sucralfate 1 gram Tablet 1 g PO TID PRN (Reason: Stomach Upset) RF: 0 Stool Softener 100 mg Capsule 100 mg PO DAILY RF: 0 potassium gluconate 595 mg (99 mg) Tablet 595 mg PO TID@, RF: 0 Referrals: Hitesh Pal ANTENNA DESIGN ENGINEER-C [Primary Care Provider] - Coding Level of Care Code ED Drilling Inspector for Antonia Medina
--- NOTE | 2021-08-04 13:36 | XRR_ITS ---
PROCEDURE INFORMATION: Exam: XR Chest Exam date and time: 08/04/2021 1:36 PM Age: 61 years old Clinical indication: Other: Syncope TECHNIQUE: Imaging protocol: XR of the chest. Views: 1 view. COMPARISON: CR XR chest 1V portable [id number] 10/13/2020 1:38 PM FINDINGS: Lungs: Unremarkable. No consolidation. Pleural spaces: Unremarkable. No pleural effusion. No pneumothorax. Heart/Mediastinum: Unremarkable. No cardiomegaly. Bones/joints: Metallic rods and screws are seen in the dorsal spine XR/XR chest 1V portable [id number] IMPRESSION: 1. No acute findings. 2. Orthopedic hardware dorsal spine Radiation Dose CTDIVOL = (mGy): DLP = (mGy-cm)
[2021-08-04 13:39] VITALS: BP 83/53; PULSE 78; RESP 20; O2SAT 99
--- NOTE | 2021-08-04 13:39 | ECG_ITS ---
[facility] Test Date: 2021-08-04 Pat Name: Viola Ennis Department: Room: Gender: Female Admissions Consultant: : 1960 Requested By: Josef Sewell Order Number: [id number] Duke MD: Sumanth Purcell M.D. Measurements Intervals [place] Rate: 72 P: 73 PA: 168 QRS: 15 QRSD: 86 T: 24 QT: 384 QTc: 422 Interpretive Statements SINUS RHYTHM Compared to ECG 07/31/2021 08:55:04 No significant changes Electronically Signed On 08-04-2021 23:19:10 CDT by Sumanth Purcell M.D. [id number] f
--- NOTE | 2021-08-04 13:44 | XRR_ITS ---
PROCEDURE INFORMATION: Exam: XR Lumbosacral Spine Exam date and time: 08/04/2021 1:44 PM Age: 61 years old Clinical indication: Injury or trauma; Fall; Blunt trauma (contusions or hematomas); Prior surgery; Surgery date: 6+ months; Additional info: Fall, post op TECHNIQUE: Imaging protocol: XR of the lumbosacral spine. Views: 2 or 3 views. COMPARISON: OT XR lumbar spine 1V [id number] 07/31/2021 11:26 AM FINDINGS: Bones/joints: There is osteopenia and osteoarthritis. No acute fracture. There is dorsolumbar dextroscoliosis. Pan angle is 56 degrees between T12 and L4. Metallic rods and transpedicular screws are in place without evidence of deformity or displacement. Surgical hardware is seen anterior aspect L5-S1 with metallic screw in the anterior aspect of the L4 vertebral body. Soft tissues: Unremarkable. XR/XR lumbar spine 2-3V* [id number] IMPRESSION: 1. Chronic osteopenia and osteoarthritis is seen. 2. Dorsolumbar dextroscoliosis. Pan angle 56 degrees 3. Negative for acute bony abnormality Radiation Dose CTDIVOL = (mGy): DLP = (mGy-cm)
--- NOTE | 2021-08-04 13:44 | CTR_ITS ---
PROCEDURE INFORMATION: Exam: CT Head Without Contrast Exam date and time: 08/04/2021 1:44 PM Age: 61 years old Clinical indication: Syncope and collapse TECHNIQUE: Imaging protocol: Computed tomography of the head without contrast. Radiation optimization: All CT scans at this facility use at least one of these dose optimization techniques: automated exposure control; mA and/or kV adjustment per patient size (includes targeted exams where dose is matched to clinical indication); or iterative reconstruction. COMPARISON: CT head wo con* [id number] 10/13/2020 1:41 PM RADIATION DOSE METRICS: Total DLP (mGy-cm): 942.64 FINDINGS: Brain: Moderate white matter disease and volume loss are identified. There is no acute infarct or edema. No hemorrhage. Cerebral ventricles: No ventriculomegaly. Paranasal sinuses: Visualized sinuses are unremarkable. No fluid levels. Mastoid air cells: Visualized mastoid air cells are well aerated. Bones/joints: Unremarkable. No acute fracture. Soft tissues: Unremarkable. CT/CT head wo con* [id number] IMPRESSION: There are no acute concerning abnormalities. Radiation Dose CTDIVOL = (mGy): DLP = 942.64 (mGy-cm)
--- NOTE | 2021-08-04 13:44 | CTR_ITS ---
PROCEDURE INFORMATION: Exam: CT Cervical Spine Without Contrast Exam date and time: 08/04/2021 1:44 PM Age: 61 years old Clinical indication: Patient HX: C/O neck pain after syncope episode TECHNIQUE: Imaging protocol: Computed tomography images of the cervical spine without contrast. Radiation optimization: All CT scans at this facility use at least one of these dose optimization techniques: automated exposure control; mA and/or kV adjustment per patient size (includes targeted exams where dose is matched to clinical indication); or iterative reconstruction. COMPARISON: CT cervical spin wo con* [id number] 02/28/2021 2:04 PM RADIATION DOSE METRICS: Total DLP (mGy-cm): 301.62 FINDINGS: Vertebrae: No acute fracture. Normal alignment. Degenerative change is identified in the spine. There is disc space narrowing and osteophyte formation especially at C5/6. Soft tissues: Unremarkable. Lungs: Lung apices are normal. CT/CT cervical spin wo con* [id number] IMPRESSION: There is no evidence for fracture or facet dislocation. Radiation Dose CTDIVOL = (mGy): DLP = 301.62 (mGy-cm)
[2021-08-04 14:53] VITALS: BP 88/60; PULSE 78; RESP 16; O2SAT 93
[2021-08-04 15:10] LABS: Basophils % 0.2 %; Eosinophils # 0.3 10^3/uL (0.0-0.8); Eosinophils % 4.7 %; Hematocrit 24.1 % (37.0-47.0); Hemoglobin 7.7 g/dL (11.5-15.3); Lymphocytes # 0.7 10^3/uL (0.8-4.8); Lymphocytes % 10.4 %; Mean Corpuscular Hemoglobin 31.7 pg (28.0-34.0); Mean Corpuscular Volume 99.2 fl (81-99); Mean Platelet Volume 11.6 fL (7.4-10.4); Monocytes # 0.3 10^3/uL (0.2-0.9); Monocytes % 4.1 %; Neutrophils # 5.34 10^3/uL (1.8-7.7); Neutrophils % 80.1 %; Nucleated Red Blood Cells % 0 %; Platelet Count 135 10^3/cmm (130-400); Red Blood Count 2.43 10^6/uL (4.1-5.3); Red Cell Distribution Width 13.8 % (12.1-15.1); White Blood Count 6.7 10^3/uL (4.0-10.0)
--- NOTE | 2021-08-04 15:43 | ECG_ITS ---
[facility] Test Date: 2021-08-04 Pat Name: Viola Ennis Department: Room: Gender: Female Proof Coin Collector: : 1960 Requested By: Josef Sewell Order Number: [id number] Duke MD: Sumanth Purcell M.D. Measurements Intervals [place] Rate: 75 P: 44 [place]: 136 QRS: 14 QRSD: 84 T: 39 QT: 373 QTc: 418 Interpretive Statements SINUS RHYTHM Compared to ECG 08/04/2021 13:35:48 No significant changes Electronically Signed On 08-04-2021 23:23:20 CDT by Sumanth Purcell M.D. [id number] f
[2021-08-04 15:45] LABS: Troponin(5th) Baseline 14 ng/L (0-10)
[2021-08-04 15:46] LABS: Lactate (Lactic Acid level) 1.3 mmol/L (0.5-2.2)
[2021-08-04 15:55] LABS: Alanine Aminotransferase 8 U/L (0-33); Albumin Level 2.6 g/dL (3.5-5.2); Alkaline Phosphatase 42 IU/L (35-105); Anion Gap 14.2 (5-19); Aspartate Amino Transferase 13 U/L (0-32); Blood Urea Nitrogen 17 mg/dL (8-23); Carbon Dioxide 24 mmol/L (22-29); Chloride 100 mmol/L (98-107); Globulin 2.3 g/dL (1.3-4.6); Glucose 75 mg/dL (65-115); Osmolality Calculated 280 mOsm/kg (285-295); Potassium 3.2 mmol/L (3.5-5.1); Sodium 135 mmol/L (136-145); Thyroid Stimulating Hormone 0.96 uIU/mL (0.27-4.20); Total Bilirubin 0.3 mg/dL (0.15-1.2); Total Protein 4.9 g/dL (6.6-8.7)
[2021-08-04] MEDS: sodium chloride 0.9% 1,000 ML 999 ML IV (15:56)
--- NOTE | 2021-08-04 16:00 | CTR_ITS ---
PROCEDURE INFORMATION: Exam: CT Chest Without Contrast; Diagnostic Exam date and time: 08/04/2021 4:00 PM Age: 61 years old Clinical indication: Other: Hypotensive; Prior surgery; Surgery date: <1 month; Surgery type: Heredia froylan revision; Additional info: Post operative hypotension, ? blood loss source, contrast allergy TECHNIQUE: Imaging protocol: Diagnostic computed tomography of the chest without contrast. Radiation optimization: All CT scans at this facility use at least one of these dose optimization techniques: automated exposure control; mA and/or kV adjustment per patient size (includes targeted exams where dose is matched to clinical indication); or iterative reconstruction. COMPARISON: CR XR hip RT 2-3V wo/w pel* [id number] 04/05/2021 9:46 AM RADIATION DOSE METRICS: Total DLP (mGy-cm): 1030.09 FINDINGS: Lungs: There is scattered ground-glass type interstitial densities in the left upper lobe. Honeycomb type interstitial densities seen in the lateral aspect of the right lung and right lower lobe.. Pleural spaces: Unremarkable. No pneumothorax. No pleural effusion. Heart: There is coronary artery calcifications seen. No cardiomegaly. No pericardial effusion. Aorta: Unremarkable. No aortic aneurysm. Lymph nodes: Unremarkable. No enlarged lymph nodes. Bones/joints: Dorsal spine dextroscoliosis with metallic rods posterior elements. Soft tissues: Unremarkable. IMPRESSION: 1. Scattered nonspecific interstitial densities in both lungs. 2. Coronary artery calcifications. PROCEDURE INFORMATION: Exam: CT Abdomen And Pelvis Without Contrast Exam date and time: 08/04/2021 4:00 PM Age: 61 years old Clinical indication: Other: Hypotensive; Prior surgery; Surgery date: <1 month; Surgery type: Heredia froylan revision; Additional info: Post operative hypotension, ? blood loss source, contrast allergy TECHNIQUE: Imaging protocol: Computed tomography of the abdomen and pelvis without contrast. Radiation optimization: All CT scans at this facility use at least one of these dose optimization techniques: automated exposure control; mA and/or kV adjustment per patient size (includes targeted exams where dose is matched to clinical indication); or iterative reconstruction. COMPARISON: CR XR hip RT 2-3V wo/w pel* [id number] 04/05/2021 9:46 AM RADIATION DOSE METRICS: Total DLP (mGy-cm): 1030.09 FINDINGS: Liver: Normal. No mass. Gallbladder and bile ducts: Evidence of cholecystectomy is seen. Pancreas: Normal. No ductal dilation. Spleen: Normal. No splenomegaly. Adrenal glands: Normal. No mass. Kidneys and ureters: Normal. No hydronephrosis. Stomach and bowel: Unremarkable. No obstruction. No mucosal thickening. Appendix: No evidence of appendicitis. Intraperitoneal space: Unremarkable. No free air. No significant fluid collection. Vasculature: Unremarkable. No abdominal aortic aneurysm. Lymph nodes: Unremarkable. No enlarged lymph nodes. Urinary bladder: Dilated with fluid otherwise negative exam as visualized. Reproductive: Unremarkable as visualized. Bones/joints: Dorsal spine osteoarthritis. There is dorsolumbar dextroscoliosis. Metallic orthopedic hardware is seen in the dorsal and lumbar spine Soft tissues: Unremarkable. CT/CT chest abd pel wo con IMPRESSION: 1. Dorsolumbar osteoarthritis, dextroscoliosis, and orthopedic hardware 2. Status post cholecystectomy. 3. Otherwise negative examination Radiation Dose CTDIVOL = (mGy): DLP = 1030.09~1030.09 (mGy-cm)
[2021-08-04 17:00] VITALS: BP 83/49; O2SAT 95
[2021-08-04 17:00] LABS: Add Urine Microscopic? NO; Charge for UA Resulting for Rev
[2021-08-04 17:04] LABS: Bilirubin Urine Neg (Negative); Blood Urine Neg (Negative); Glucose Urine UA Norm (Normal); Ketones Urine Negative (Negative); Leukocyte Esterase Urine Negative (Negative); Nitrate Urine Negative (Negative); Protein Urine Neg (Negative); Urine Appearance Clear (CLEAR); Urine Color Straw (Yellow); Urobilinogen Urine Norm (Negative); pH Urine 7 (5-7)
--- NOTE | 2021-08-04 17:44 | PC.NURSE ---
pt wants to leave ama, Dr. Sewell advised pt that she needed to be admitted for hypotension, low hgb and pt stated she would rather go home.
== END 2021-08-04 17:47 | disposition left against medical advice (07) ==
PROVIDERS: Emergency Provider Emergency Medicine; PCP Nurse Practitioner
DX: R55 Syncope and collapse (principal); Z53.21 Procedure and treatment not carried out due to patient leaving prior to being seen by health care provider; I25.10 Atherosclerotic heart disease of native coronary artery without angina pectoris; I11.0 Hypertensive heart disease with heart failure; I50.9 Heart failure, unspecified; E78.2 Mixed hyperlipidemia; Z77.22 Contact with and (suspected) exposure to environmental tobacco smoke (acute) (chronic)
CPT/HCPCS: 70450; 71045; 71250; 72100; 72125; 74176; 80053; 81003; 83605; 84443; 84484; 85025; 87040; 93005; 96360; 99284; J7030

== ENCOUNTER → 2021-08-08 13:34 | Outpatient (BNVA) | payer MEDICARE, MEDICAID, SELFPAY | PROVIDERS: PCP Nurse Practitioner; Visit Provider Nurse Practitioner | DX: D64.9 Anemia, unspecified (principal); R09.81 Nasal congestion; I10 Essential (primary) hypertension | CPT/HCPCS: 80048; 85025 ==

== ENCOUNTER → 2021-08-13 13:11 | Outpatient (BNVA) | payer MEDICARE, MEDICAID, SELFPAY | PROVIDERS: PCP Nurse Practitioner; Visit Provider Physician Assistant | DX: M43.20 Fusion of spine, site unspecified (principal); M41.85 Other forms of scoliosis, thoracolumbar region | CPT/HCPCS: 72080 ==

== ENCOUNTER → 2021-09-05 11:23 | Outpatient (BNVA) | payer MEDICARE, MEDICAID, SELFPAY | PROVIDERS: PCP Nurse Practitioner; Visit Provider Nurse Practitioner | DX: I10 Essential (primary) hypertension (principal) | CPT/HCPCS: 80053; 85025 ==

== ENCOUNTER 2021-09-13 08:44 | Outpatient (CLI) | payer MEDICARE, MEDICAID, SELFPAY ==
--- NOTE | 2021-09-13 08:45 | MR_ITS ---
WS: [id number] MRI BRAIN CONTRAST HISTORY: R51 - Headache COMPARISON: 05/01/2017 TECHNIQUE: Diffusion imaging, multiplanar T1, T2 and FLAIR imaging obtained. No evidence for acute infarct or hemorrhage. Green-white matter differentiation is normal. The T2 and FLAIR signal hyperintensities described on the prior examination have increased and become more confluent and are predominantly in a subcortical white matter distribution. These are predomina ntly within the temporal and frontal lobes. Also bilateral ischemic disease within the elizabeth. No prior infarct. Ventricles and extra-axial spaces are normal. No inferior displacement of cerebellar tonsils. The sella turcica and pituitary gland are unremarkabl e. Dural venous sinuses and [place] demonstrate no abnormality on this unenhanced studies. Paranasal sinuses: Clear. Mastoid air cells: Normal. Calvarium and scalp: Intact. MR/MR head wo con* [id number] IMPRESSION: 1. No acute infarct. 2. Moderate progression of small vessel ischemic change as compared to 7. Subcortical white matter signal is becoming more confluent. More than expect ed for the patient of this age. Etiologies to consider are hypertension, diabet es and migraines and smoking with small vessel ischemic disease. 3. Mild atrophy.
== END 2021-09-13 08:45 | disposition home or self-care (01) ==
PROVIDERS: PCP Nurse Practitioner; Visit Provider Nurse Practitioner
DX: G31.9 Degenerative disease of nervous system, unspecified (principal); Z20.822 Contact with and (suspected) exposure to COVID-19
CPT/HCPCS: 70551; 87635

== ENCOUNTER → 2021-10-01 13:07 | Outpatient (BNVA) | payer MEDICARE, MEDICAID, SELFPAY | PROVIDERS: PCP Nurse Practitioner; Visit Provider Orthopaedic Surgery | DX: M43.20 Fusion of spine, site unspecified (principal); Z47.89 Encounter for other orthopedic aftercare; Z98.890 Other specified postprocedural states; Z98.1 Arthrodesis status; M54.2 Cervicalgia | CPT/HCPCS: 72080 ==

== ENCOUNTER 2021-12-04 13:14 | Outpatient (CLI) | payer MEDICARE, MEDICAID, SELFPAY ==
--- NOTE | 2021-12-04 13:25 | MR_ITS ---
WS: [id number] MRI CERVICAL SPINE NONCONTRAST TECHNIQUE: Sagittal T1, T2 and STIR imaging. Axial T2, gradient, and fiesta imaging. CLINICAL INFORMATION: M62.838 - Other muscle spasm COMPARISON: CT August 04, 2021, February 28, 2021. CT August 08, 2020 FINDINGS: Some images degraded by patient motion. Slight exaggeration of the normal cervical lordosis. Cord signal is normal. Disc space narrowing wors e at C5-C6 with diffuse edema in the C5 and C6 vertebral bodies. Anterior hypertrophic changes at thi s level. This is similar in appearance to August 04, 2021 with endplate erosive changes. Findings ma y be degenerative can also be seen with discitis. Recommend correlation for infection. This can be fo llowed up with gadolinium. C2-C3: Mild bilateral foraminal narrowing. Spinal canal is patent. C3-C4: Disc osteophyte complex with endplate ridging. Mild facet arthropathy. Spinal canal and forame n are patent. C4-C5: Disc osteophyte complex with endplate ridging. Mild LEFT greater than RIGHT foraminal narrowin g. Mild facet arthropathy. Mild central canal stenosis. C5-C6: Disc osteophyte complex with endplate ridging. Moderate central canal stenosis. Slight indenta tion on the cervical cord. Moderate bilateral foraminal narrowing. Moderate facet arthropathy. C6-C7: Disc osteophyte complex with endplate ridging. Mild LEFT and no significant RIGHT foraminal na rrowing. Mild central canal stenosis. C7-T1: Tiny central disc protrusion. Slight contact of the cervical cord. Spinal canal is patent. Mil d to moderate LEFT and mild RIGHT bony foraminal narrowing. Visualized brain stem structures: Normal. Prevertebral soft tissues: Normal. MR/MR cervical spin wo con* [id number] IMPRESSION: 1. Slight exaggeration the normal cervical lordosis. Cord signal is normal. 2. Disc space narrowing worse at C5-C6 with endplate erosive changes and diffu se edema in the C5 and C6 vertebral bodies. Findings may be degenerative but di scitis is an additional consideration. Recommend correlation for infection. End plate erosive changes are similar to the CT August 04, 2021. This can be furth er evaluated with gadolinium. 3. Mild to moderate central canal stenosis C4-C5 C5-C6 and C6-C7. Moderate at C5-C6 and C6-C7. 4. Moderate bilateral bony foraminal narrowing C5-C6. 5. Mild to moderate LEFT C7-T1 bony foraminal narrowing.
== END 2021-12-04 13:15 | disposition home or self-care (01) ==
LOC: RAD 13:21
PROVIDERS: PCP Nurse Practitioner; Visit Provider Orthopaedic Surgery
DX: M62.838 Other muscle spasm (principal); M48.02 Spinal stenosis, cervical region
CPT/HCPCS: 72141

== ENCOUNTER 2021-12-10 10:35 | Emergency (ER) | payer MEDICARE, MEDICAID, SELFPAY ==
[2021-12-10 10:41] VITALS: BMI 15.2
[2021-12-10 10:47] VITALS: BP 115/78; PULSE 80; RESP 16; TEMP 36.9; O2SAT 96
--- NOTE | 2021-12-10 11:13 | XR_ITS ---
WS: [id number] CHEST XRAY TECHNIQUE: Portable chest. CLINICAL INFORMATION: sob w/ exertion COMPARISON: August 04, 2021 FINDINGS: Heart: Cardiomegaly. Lungs: Hyperinflation. No acute pulmonary infiltrates. No focal pneumonia or pleural fluid. Bones: Prior postoperative changes pedicle screw fixation thoracolumbar spine with interconnecting ro ds. XR/XR chest 1V portable [id number] IMPRESSION: 1. Stable cardiomegaly. 2. Hyperinflation. No acute pulmonary infiltrates. 3. Prior postoperative changes pedicle screw fixation with interconnecting froylan s thoracolumbar spine.
--- NOTE | 2021-12-10 11:15 | ECG_ITS ---
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 Measurements Intervals [place] Rate: 79 P: 79 FL: 148 QRS: 42 QRSD: 77 T: 55 QT: 371 QTc: 426 Interpretive Statements SINUS RHYTHM MODERATE ST DEPRESSION [0.05+ mV ST DEPRESSION] Compared to ECG 08/04/2021 15:11:28 ST (T wave) deviation now present Electronically Signed On 12-11-2021 9:17:51 ACOUSTIC WARFARE ANALYST by Haydee Simms M.D. [id number]
[2021-12-10 11:32] LABS: Basophils % 0.6 %; Eosinophils # 0.1 10^3/uL (0.0-0.8); Eosinophils % 1.4 %; Hematocrit 43.7 % (37.0-47.0); Hemoglobin 13.4 g/dL (11.5-15.3); Lymphocytes # 1.5 10^3/uL (0.8-4.8); Lymphocytes % 29.4 %; Mean Corpuscular HGB Conc 30.7 g/dL (30.0-36.0); Mean Corpuscular Hemoglobin 24.8 pg (28.0-34.0); Mean Corpuscular Volume 80.9 fl (81-99); Mean Platelet Volume 11.5 fL (7.4-10.4); Monocytes # 0.5 10^3/uL (0.2-0.9); Monocytes % 8.8 %; Neutrophils # 3.07 10^3/uL (1.8-7.7); Neutrophils % 59.6 %; Nucleated Red Blood Cells % 0 %; Platelet Count 199 10^3/cmm (130-400); Red Cell Distribution Width 17.4 % (12.1-15.1); White Blood Count 5.1 10^3/uL (4.0-10.0)
--- NOTE | 2021-12-10 11:33 | W.ED.NAVMDI ---
HPI - Nausea/Vomiting/Diarrhea General: Chief complaint: Nausea/Vomiting/Diarrhea Stated complaint: havent eaten and just doesnt feel very good Time Seen by Provider: 12/10/21 11:32 History of Present Illness: Ms. Lux is a 61-year-old lady with complex past medical history including hypertension, hyperlipidemia, CHF, CAD, chronic pain who presents the emergency department due to abdominal pain, nausea, vomiting. She reports a longstanding history of abdominal pain without clear explanation. She has previously been told that she had an infection in her stomach and ulcers, presumably H. pylori. She completed treatment with antibiotics for this however is unsure of exactly which ones over 1 month ago. However, her symptoms have persisted. Over the past 4 or 5 days she has not been able to keep anything down. She endorses near continuous spitting of variable quality sputum. She does not endorse a sensation of food or liquids getting stuck. She does not vomit food contents. Overall the course of symptoms has been worsening. Intensity is moderate to severe. No other specific exacerbating or relieving factors identified. Pertinent past history: abdominal surgery and other Onset (ago): day(s) Associated nausea: Yes Associated abdominal pain: Yes Location of pain: Diffuse and Epigastric Pain consistency: constant Severity: moderate Associated symtoms: Reports nausea Review of Systems General: Reports: 10 or more systems reviewed and unremarkable except in HPI and below GI: Reports: nausea PFSH ED PFSH: Medical History Adult onset hypothyroidism Anxiety, generalized CAD (coronary artery disease) CHF (congestive heart failure), NYHA class III Chronic bilateral low back pain with bilateral sciatica Constipation, slow transit Essential (primary) hypertension Fibromyalgia muscle pain 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 Gastric reflux Hypotension, unspecified Mixed hyperlipidemia Neuropathic pain of both legs Osteopenia of multiple sites Vitamin B12 deficiency Vitamin D deficiency Surgical History History of back surgery History of cholecystectomy History of hysterectomy History of tonsillectomy Family History Other Arthritis Coronary artery disease involving [place] coronary artery of [place] heart with unstable angina pectoris Diabetes Hypertension Thyroid condition Social History Smoking and tobacco status: current every day smoker Second hand smoke exposure: Yes Smoking risk assessment/counseling performed?: Yes Alcohol intake: never Desire information about alcohol rehabilitation?: No Counseling given: No Desire information about substance/drug rehabilitation?: No Counseling given: No Adopted: No Caregiver/support person: Yes Lives independently: No Household members: family Housing: House Marital status: service: No Current occupational status: disabled History of recent travel: No Current gender identity: Female Physical Exam Const: COMMON NORMALS: alert GENERAL APPEARANCE: cooperative and frail appearing HENMT: COMMON NORMALS: normocephalic and atraumatic HEAD & SCALP: normocephalic and atraumatic OTHER: dry mucous membranes Eye: COMMON NORMALS: conjunctivae normal CONJUNCTIVA: Yes conjunctivae normal SCLERA: sclerae normal Neck/C-Spine: COMMON NORMALS: supple GENERAL: Yes trachea midline Resp: COMMON NORMALS: normal respiratory effort EFFORT & INSPECTION: Yes able to speak in complete sentences AUSCULTATION: rhonchi lower bilaterally Cardio: COMMON NORMALS: regular rate and regular rhythm RATE: regular rate RHYTHM: regular rhythm GI: COMMON NORMALS: Soft to palpation PALPATION: Yes Soft to palpation, Yes Tenderness to palpation present (GI), No Guarding due to palpation present (GI) and No Rigid due to palpation PERCUSSION: normal to percussion Extremity: GENERAL: Yes normal exam except as noted and No edema Neuro: COMMON NORMALS: moves all extremities SENSORIUM/ORIENTATION: Yes alert and No Orientation impaired Psych: COMMON NORMALS: mental status grossly normal and Normal thought process present THOUGHT PROCESS: Normal thought process present Course ED course: - Patient was seen and evaluated by me at bedside - Patient placed on cardiac monitors, IV access obtained - Initial evaluation notable for exam as above - Symptom treatment ordered - Labs notable for no leukocytosis, hemoconcentration compared to prior. Metabolic panel with hypokalemia, replenishment ordered. Patient unable to provide urine sample, in the absence of specific urinary symptoms I do not feel that this is strictly necessary to keep the patient in the emergency department for. Patient declined repeat troponin; troponin appears similar to baseline with greater than 6 hours of symptoms and patient does not have typical cardiac features of symptoms, therefore I do not feel that this is strictly necessary. - Imaging notable for no acute finding on chest x-ray to explain symptoms. CT chest abdomen pelvis without acute finding to explain symptoms - Upon serial reexamination after treatment the patient was similar to mildly proved - Based on patient history, evaluation, labs, and imaging as interpreted the most likely cause of the patient's condition is unspecified abdominal pain. This is perhaps related to failed treatment with likely triple therapy for H. pylori (prior treatment regimen somewhat uncertain though patient does report amoxicillin) - The results of ED evaluation were discussed with the patient including prescriptions and/or symptomatic cares (if applicable) including appropriate and responsible use, followup plan, and return precautions. The patient verbalized understanding and felt safe for discharge. - Patient discharged in satisfactory condition. Note: Click bubbles or prepopulated arellano in note writing are used for assistance with data collection and billing and are inherently more limited than narrative and other text portions of this note. Please use narrative for additional clinical history and defer to narrative/free test for any case of contradictory information. If information appears in only free text or click bubble it should be considered present or absent as reported. Please contact note handbook writer for clarifications of clinical information or contradictory information. MDM is a brief summary, contradictory or erroneous seeming information should be clarified and full note should be reviewed. Vital Signs: Vital signs: Vital Signs Temperature 98.4 F 12/10/21 10:47 Pulse Rate 80 12/10/21 14:05 Respiratory Rate 16 12/10/21 14:05 Blood Pressure 142/80 12/10/21 14:05 Pulse Oximetry 96 12/10/21 14:05 MDM - Nausea/Vomiting/Diarrhea Medical Decision Making 61-year-old lady presenting with abdominal pain, nausea, vomiting. Does have a history of H. pylori treated with likely triple therapy. ED evaluation with evidence of mild dehydration and hypokalemia. CT imaging without acute pathology requiring inpatient management. Patient will be treated in outpatient setting for possible incompletely treated H. pylori and referred for further follow-up with GI. Medical Records I reviewed the patient's medical records. Lab Data I reviewed the patient's lab results. : 12/10/21 11:25 12/10/21 11:25 Radiology Impressions Chest X-Ray 12/10/21 11:13 IMPRESSION: 1. Stable cardiomegaly. 2. Hyperinflation. No acute pulmonary infiltrates. 3. Prior postoperative changes pedicle screw fixation with interconnecting rods thoracolumbar spine. Chest/Abdomen/Pelvis CT 12/10/21 11:53 IMPRESSION: 1. No acute findings in the chest abdomen or pelvis. 2. Chronic emphysematous changes. No acute pulmonary infiltrates. 3. Slightly ectatic ascending thoracic aorta measuring 3.3 cm unchanged. 4. Coronary calcification. 5. No acute findings in the abdomen or pelvis. 6. Prior cholecystectomy. 7. Prior thoracolumbar dorsal fusion with interconnecting rods and bilateral sacroiliac fusion. Laboratory Results WBC 5.1 10^3/uL (4.0-10.0) 12/10/21 11:25 RBC 5.40 10^6/uL (4.1-5.3) H 12/10/21 11:25 Hgb 13.4 g/dL (11.5-15.3) 12/10/21 11:25 Hct 43.7 % (37.0-47.0) 12/10/21 11:25 MCV 80.9 fl (81-99) L 12/10/21 11:25 MCH 24.8 pg (28.0-34.0) L 12/10/21 11:25 MCHC 30.7 g/dL (30.0-36.0) 12/10/21 11:25 RDW 17.4 % (12.1-15.1) H 12/10/21 11:25 Plt Count 199 10^3/cmm (130-400) 12/10/21 11:25 MPV 11.5 fL (7.4-10.4) H 12/10/21 11:25 Neut % (Auto) 59.6 % 12/10/21 11:25 Lymph % (Auto) 29.4 % 12/10/21 11:25 [place] % (Auto) 8.8 % 12/10/21 11:25 Eos % (Auto) 1.4 % 12/10/21 11:25 Baso % (Auto) 0.6 % 12/10/21 11:25 Neut # (Auto) 3.07 10^3/uL (1.8-7.7) 12/10/21 11:25 Lymph # (Auto) 1.5 10^3/uL (0.8-4.8) 12/10/21 11:25 [place] # (Auto) 0.5 10^3/uL (0.2-0.9) 12/10/21 11:25 Eos # (Auto) 0.1 10^3/uL (0.0-0.8) 12/10/21 11:25 Baso # (Auto) 0.0 10^3/uL (0.0-0.1) 12/10/21 11:25 Nucleated RBC % (auto) 0 % 12/10/21 11:25 Nucleated RBCs # 0.0 /100WBC 12/10/21 11:25 Sodium 139 mmol/L (136-145) 12/10/21 11:25 Potassium 3.2 mmol/L (3.5-5.1) L 12/10/21 11:25 Chloride 101 mmol/L (98-107) 12/10/21 11:25 Carbon Dioxide 24 mmol/L (22-29) 12/10/21 11:25 Anion Gap 17.2 (5-19) 12/10/21 11:25 BUN 25 mg/dL (8-23) H 12/10/21 11:25 Creatinine 0.5 mg/dL (0.5-0.9) 12/10/21 11:25 GFR Calculation 125.9 mL/min (90-130) 12/10/21 11:25 Glucose 97 mg/dL (65-115) 12/10/21 11:25 Calculated Osmolality 292 mOsm/kg (285-295) 12/10/21 11:25 Calcium 9.8 mg/dL (8.5-10.5) 12/10/21 11:25 Total Bilirubin 0.5 mg/dL (0.15-1.2) 12/10/21 11:25 AST 19 U/L (0-32) 12/10/21 11:25 ALT 10 U/L (0-33) 12/10/21 11:25 Alkaline Phosphatase 70 IU/L (35-105) 12/10/21 11:25 Troponin T Baseline 14 ng/L (0-10) H 12/10/21 11:25 NT-Pro-B Natriuret Pep 157 pg/mL (0-125) H 12/10/21 11:25 Total Protein 7.4 g/dL (6.6-8.7) 12/10/21 11:25 Albumin 4.4 g/dL (3.5-5.2) 12/10/21 11:25 Globulin 3.0 g/dL (1.3-4.6) 12/10/21 11:25 Lipase 53 U/L (13-60) 12/10/21 11:25 EKG Data EKG 1: I personally reviewed and interpreted this EKG as follows: EKG interpretation date: 12/10/21 EKG interpretation time: 11:29 Interpretation: Twelve-lead EKG shows a regular rhythm at a rate of 79. ME interval 148, QRS duration 77, QTc 405. Normal axis. Interpretation: Sinus rhythm. Discharge Plan Discharge Patient Disposition: Home Clinical Impression: Abdominal pain, Recurrent vomiting, Hypokalemia Condition: Stable Prescriptions: New bismuth subsalicylate 262 mg tablet 2 tab PO QID 14 Days Qty: 112 0RF lansoprazole 30 mg capsule,delayed release(DR/EC) 30 mg PO BID 14 Days Qty: 28 0RF metronidazole 500 mg tablet 500 mg PO Q8H 14 Days Qty: 42 0RF tetracycline 500 mg capsule 500 mg PO QID 14 Days Qty: 56 0RF No Action magnesium oxide 250 mg magnesium tablet 250 mg PO DAILY@1500 0RF cholecalciferol (vitamin D3) 1,000 unit capsule 1,000 unit PO DAILY@0800 0RF fentanyl 75 mcg/hr patch 72 hour 1 patch TRANSDERMA Q72H 0RF baclofen 10 mg tablet See Rx Instructions .ROUTE .COMPLEX 0RF Rx Instructions: 40mg po qam, 20mg @15:00,20mg @22:00 levocetirizine 5 mg tablet 5 mg PO DAILY Qty: 30 0RF buspirone 5 mg tablet 5 mg PO TID PRN (Reason: anxiety) Qty: 90 2RF paroxetine HCl 30 mg tablet 30 mg PO DAILY@0800 Qty: 90 1RF Linzess 145 mcg capsule 145 mcg PO BEDTIME Qty: 30 2RF levothyroxine 50 mcg tablet 50 mcg PO DAILY@1500 Qty: 90 1RF (DME) Duoderm See Rx Instructions .Route .MEDSUPPLY Qty: 10 0RF Rx Instructions: As directed fenofibrate micronized 134 mg capsule 134 mg PO DAILY@0800 Qty: 30 2RF furosemide 20 mg tablet 20 mg PO DAILY@0800 Qty: 30 2RF (DME) BD Luer-Rae Syringe 3 mL 25 gauge x 1 syringe See Rx Instructions .ROUTE .MEDSUPPLY Qty: 5 2RF Rx Instructions: one every 3 weeks cyanocobalamin (vitamin B-12) 1,000 mcg/mL solution See Rx Instructions .ROUTE .COMPLEX Qty: 2 2RF Rx Instructions: inject 1ml every 2 weeks gabapentin 800 mg tablet See Rx Instructions PO .COMPLEX 0RF Rx Instructions: 800mg in AM 1600mg at 1600 800mg at 2200 PO; nifedipine 30 mg tablet extended release 24hr 30 mg PO QAM Qty: 30 0RF (DME) [id number] Bone Growth Stimulator See Rx Instructions .Route .MEDSUPPLY Qty: 1 0RF Rx Instructions: As directed calcium carbonate-vitamin D3 [Os-Alejo 500 + D3] 500 mg(1,250mg) -200 unit tablet 1 tab PO BID Qty: 60 2RF olmesartan 40 mg tablet 40 mg PO DAILY@0800 Qty: 90 1RF omeprazole 40 mg capsule,delayed release(DR/EC) 40 mg PO DAILY 0RF carvedilol 12.5 mg tablet 12.5 mg PO BID@ 0RF meclizine 25 mg tablet 25 mg PO QID PRN (Reason: Dizziness) 0RF zqbrecqofo-thfbvvb-htretyyh 50-325-40 mg capsule 1 cap PO DAILY PRN (Reason: Migraine Headache) 0RF Vitamin B-12 100 mcg Tablet 100 mcg PO DAILY 0RF sucralfate 1 gram Tablet 1 g PO TID PRN (Reason: Stomach Upset) 0RF Stool Softener 100 mg Capsule 100 mg PO DAILY 0RF potassium gluconate 595 mg (99 mg) Tablet 595 mg PO TID@,, 0RF Discharge Orders: Discharge ED (Routine); Ordered 12/10/21 Ordered By: Josef Sewell Referrals: Hitesh Pal, [employer] CHAIR-C [Primary Care Provider] - Discharge Diet: Usual diet Discharge Activity: Resume usual activity Patient Instructions: Helicobacter Pylori (ED), Hypokalemia (ED), Abdominal Pain (ED), Opioid Safety Activity Restrictions/Additional Instructions: Thank you for visiting the emergency department. You were seen and evaluated for recurrent spitting and abdominal pain. The exact cause your symptoms is unclear. Given your history of H. pylori with incomplete improvement after treatment I will treat you again for H. pylori with a different treatment regimen. Please follow-up with your primary care provider. I will message our medical case worker for follow-up with GI. Please return to the emergency department for worsening symptoms, inability to tolerate p.o. intake, or anything else that you are concerned about and feel needs emergency department evaluation. Coding Level of Care Code ED Supervisor Stave Cutting for Antonia Medina Exam Comprehensive
[2021-12-10 11:39] VITALS: BP 151/80; PULSE 80; RESP 16; O2SAT 97
--- NOTE | 2021-12-10 11:53 | CT_ITS ---
WS: [id number] CT CHEST, ABDOMEN, AND PELVIS TECHNIQUE: Noncontrast CT of the chest, abdomen, and pelvis with coronal and sagittal reformatted clotilde ges. CLINICAL INFORMATION: sob, progressive dysphagia, weight loss, abd pain COMPARISON: CT chest abdomen pelvis August 04, 2021 DLP: 994.[address] scans at [facility] use at least one of these dose optimization techniques: automated e xposure control; mA and/or kV adjustment per patient size (includes targeted exams where dose is matc hed to clinical indication); or iterative reconstruction. CT CHEST: Moderate chronic emphysematous changes. No acute pulmonary infiltrates. No focal pneumonia or pleural fluid. No mediastinal or hilar lymphadenopathy. Coronary calcification. No axillary lymphadenopathy. Slightly ectatic ascending thoracic aorta measuring 3.4 cm unchanged. Normal caliber descending thor acic aorta. Prior postoperative changes thoracolumbar spine with dorsal interconnecting rods. Thoraco lumbar scoliosis convex RIGHT. CT ABDOMEN AND PELVIS: Noncontrast liver is normal. Cholecystectomy clips. Normal GE junction. Air-fluid level in the stomac h. No evidence of high-grade small or large bowel obstruction. Mild sigmoid constipation. Dense aorti c calcification. Normal caliber abdominal aorta. Adrenal glands are normal. No hydronephrosis in eith er kidney. RIGHT renal cyst measuring 9 mm. Thoracolumbar fusion with interconnecting rods. Bilateral sacroiliac screws. Osteopenia. CT/CT chest abd pel wo con IMPRESSION: 1. No acute findings in the chest abdomen or pelvis. 2. Chronic emphysematous changes. No acute pulmonary infiltrates. 3. Slightly ectatic ascending thoracic aorta measuring 3.3 cm unchanged. 4. Coronary calcification. 5. No acute findings in the abdomen or pelvis. 6. Prior cholecystectomy. 7. Prior thoracolumbar dorsal fusion with interconnecting rods and bilateral s acroiliac fusion.
[2021-12-10 11:59] LABS: Troponin(5th) Baseline 14 ng/L (0-10)
[2021-12-10] MEDS: sodium chloride 0.9% 1,000 ML 999 ML IV (12:00)
[2021-12-10] MEDS: ondansetron 2 mg/ML SDV 2 mL 4 MG IVP (12:00)
[2021-12-10 12:03] VITALS: BP 145/89; PULSE 75; RESP 16; O2SAT 97
[2021-12-10 12:08] LABS: Alanine Aminotransferase 10 U/L (0-33); Albumin Level 4.4 g/dL (3.5-5.2); Alkaline Phosphatase 70 IU/L (35-105); Anion Gap 17.2 (5-19); Aspartate Amino Transferase 19 U/L (0-32); Blood Urea Nitrogen 25 mg/dL (8-23); Calcium 9.8 mg/dL (8.5-10.5); Carbon Dioxide 24 mmol/L (22-29); Chloride 101 mmol/L (98-107); Creatinine Clr Calc Pharmacy 85.6781; Glomerular Filtration Rate 125.9 mL/min (90-130); Glucose 97 mg/dL (65-115); Lipase 53 U/L (13-60); NT Pro B Type Natriuretic Pept 157 pg/mL (0-125); Osmolality Calculated 292 mOsm/kg (285-295); Potassium 3.2 mmol/L (3.5-5.1); Sodium 139 mmol/L (136-145); Total Bilirubin 0.5 mg/dL (0.15-1.2); Total Protein 7.4 g/dL (6.6-8.7)
--- NOTE | 2021-12-10 12:48 | PC.NURSE ---
Pt refused to take potassium states will make her sick. Dr. Sewell notified.
[2021-12-10 13:02] VITALS: BP 157/80; PULSE 81; RESP 16; O2SAT 97
[2021-12-10 14:05] VITALS: BP 142/80; PULSE 80; RESP 16; O2SAT 96
--- NOTE | 2021-12-12 14:16 | DCPLANNER ---
Addendum entered by Saima Quiroz 12/26/21 10:08: Patient had a follow up appointment scheduled for 12.25.[address] Florentino at General Surgery - patient did not attend appointment. Addendum entered by Saima Quiroz 12/20/21 21:11: Patient has a follow up appointment scheduled for Saturday, December 25, 2021 at 9:[address] Hayes at general surgery. Clinic will call patient with appointment information. Original Note: technology project manager had message to schedule a follow up appointment for patient with general surgery. technology project manager emailed patients information to Michelle John and Angelica at [facility] General Surgery / ENT clinic. Patients information will be printed and reviewed. Clinic will call patient with appointment information.
== END 2021-12-10 14:03 | disposition home or self-care (01) ==
PROVIDERS: Physician Assistant; Emergency Provider Emergency Medicine; PCP Nurse Practitioner
DX: R10.9 Unspecified abdominal pain (principal); R11.10 Vomiting, unspecified; E87.6 Hypokalemia; I25.10 Atherosclerotic heart disease of native coronary artery without angina pectoris; I11.0 Hypertensive heart disease with heart failure; I50.9 Heart failure, unspecified; E78.2 Mixed hyperlipidemia; F17.210 Nicotine dependence, cigarettes, uncomplicated
CPT/HCPCS: 71045; 71250; 74176; 80053; 83690; 83880; 84484; 85025; 93005; 96361; 96374; 99284; J2405; J7030

== ENCOUNTER → 2021-12-31 15:16 | Outpatient (BNVA) | payer MEDICARE, MEDICAID, SELFPAY | PROVIDERS: PCP Nurse Practitioner; Visit Provider Orthopaedic Surgery | DX: Z48.89 Encounter for other specified surgical aftercare (principal); M43.20 Fusion of spine, site unspecified | CPT/HCPCS: 72070; 72100 ==

== ENCOUNTER → 2022-02-20 13:54 | Outpatient (BNVA) | payer MEDICARE, MEDICAID, SELFPAY | PROVIDERS: PCP Nurse Practitioner; Visit Provider Orthopaedic Surgery | DX: M54.6 Pain in thoracic spine (principal); M25.559 Pain in unspecified hip; M43.26 Fusion of spine, lumbar region; Z47.89 Encounter for other orthopedic aftercare; Z98.1 Arthrodesis status | CPT/HCPCS: 72070; 72100; 99213; 99214 ==

== ENCOUNTER → 2022-03-11 08:12 | Outpatient (BNVA) | payer MEDICARE, MEDICAID, SELFPAY | PROVIDERS: PCP Nurse Practitioner; Visit Provider Orthopaedic Surgery | DX: M54.42 Lumbago with sciatica, left side (principal); M54.41 Lumbago with sciatica, right side; T84.296A Other mechanical complication of internal fixation device of vertebrae, initial encounter; Z98.1 Arthrodesis status | CPT/HCPCS: 72072; 72100; 99214 ==

== ENCOUNTER 2022-03-19 11:19 | Outpatient (CLI) | payer MEDICARE, MEDICAID, SELFPAY ==
--- NOTE | 2022-03-19 11:00 | CT_ITS ---
WS: [id number] CT pelvis TECHNIQUE: Noncontrast CT of the pelvis with coronal and sagittal reformatted images. CLINICAL INFORMATION: pain COMPARISON: None. DLP: 3549.[address] scans at [facility] [place] use at least one of these dose optimization techniques: automated e xposure control; mA and/or kV adjustment per patient size (includes targeted exams where dose is matc hed to clinical indication); or iterative reconstruction. FINDINGS: Advanced osteopenia. Bilateral sacroiliac fixation screws are new from previous. The sacroiliac fixat ion screws appear intact. Mild loosening along the RIGHT S1 pedicle screw is unchanged. Fracture of t he RIGHT dorsal connecting froylan at the L3-L4 level described on the lumbar spine CT. Interbody fusion grafts L4-L5 and L5-S1 with anterior screw fixation. RIGHT unilateral L4 pedicle screw. Normal sacrum. No visualized sacral insufficiency fractures or sclerosis. Normal superior and inferio r pubic rami. Degenerative narrowing both hips. No acute fractures. Normal iliac wings. Normal sacrococcygeal junction. CT/CT pelvis wo con [id number] IMPRESSION: 1. No acute pelvic findings. 2. Fracture of the revised RIGHT dorsal interconnecting froylan at the L4 level de scribed on lumbar spine CT.
--- NOTE | 2022-03-19 11:30 | CT_ITS ---
WS: [id number] CT THORACIC SPINE TECHNIQUE: Noncontrast CT of the thoracic spine with coronal and sagittal reformatted images. CLINICAL INFORMATION: post op COMPARISON: CT thoracic April 15, 2021 DLP: 3549.[address] scans at [facility] use at least one of these dose optimization techniques: automated e xposure control; mA and/or kV adjustment per patient size (includes targeted exams where dose is matc hed to clinical indication); or iterative reconstruction. FINDINGS: Evaluation is somewhat limited due to advanced scoliosis and kyphosis. S-shaped thoracolumbar scoliosis. Stable pedicle screw fixation with interconnecting rods extending f rom T5 into the lumbosacral junction. Previously described fracture in the RIGHT dorsal interconnecti ng rods at the L2-3 level has been revised since the prior examination. Interconnecting rods intact t candida. Again seen is loosening involving the bilateral T5 pedicle screws, LEFT T6 and RIGHT T7 pedicle screw s are new. LEFT T5 pedicle screw traverses the LEFT subarticular recess unchanged. No high-grade cent ral canal narrowing. Prior decompressive laminectomies T7-T12. Sacroiliac fusion is new from previous . CT/CT thoracic spin wo con* [id number] IMPRESSION: 1. Advanced thoracolumbar scoliosis. 2. No acute appearing compression fractures. 3. RIGHT dorsal interconnecting froylan defect has been repaired compared to previ ous. Interconnecting rods intact today. 4. Lucency along the pedicle screws at bilateral T5, LEFT T6, and right T7 williams picious for loosening unchanged. 5. Sacroiliac fusion is new from previous 6. No other significant changes compared to previous.
--- NOTE | 2022-03-19 12:00 | CT_ITS ---
WS: [id number] CT LUMBAR SPINE TECHNIQUE: Noncontrast CT of the lumbar spine with coronal and sagittal reformatted images. CLINICAL INFORMATION: pain COMPARISON: CT April 15, 2021 DLP: 3549.[address] scans at [facility] use at least one of these dose optimization techniques: automated e xposure control; mA and/or kV adjustment per patient size (includes targeted exams where dose is matc hed to clinical indication); or iterative reconstruction. FINDINGS: Advanced thoracolumbar scoliosis. Lumbar scoliosis convex RIGHT in the lumbar spine. Revision of the previously described RIGHT dorsal interconnecting froylan fracture however there is a new fracture today nearly the same location at the L3-L4 level. One shaft width lateral displacement of the proximal con necting froylan. This is fractured at the level of the fixation device. LEFT dorsal interconnecting rods appear intact with interval revision. Bilateral sacroiliac fusion is new. Osteopenia. Pedicle screw fixation L4-S1. S2 pedicle screws cross the sacroiliac joints. Alignm ent appears stable compared to previous. No acute appearing lumbar compression fractures. Anterior plate and screw fixation L5-S1. Anterior screw fixation L4. Interbody fusion grafts L4-L5 an d L5-S1. Unilateral L4 pedicle screw. Mild lucency along the RIGHT S1 pedicle screw is unchanged. Ped icle screws otherwise appear intact. L1-L2: Mild bony central canal stenosis. Foramen are patent. L2-L3: Vacuum disc phenomenon. Mild central canal stenosis. Foramen are patent. L3-L4: Mild central canal stenosis. Mild bilateral foraminal narrowing. Moderate facet arthropathy. L4-L5: Prior laminectomy defects. Mild LEFT to RIGHT narrowing the thecal sac. Advanced facet arthrop athy with narrowing of the subarticular recess. Mild RIGHT foraminal narrowing. L5-S1: Disc osteophytic ridging with slight impingement on the RIGHT S1 nerve root. Mild RIGHT and no significant LEFT foraminal narrowing. CT/CT lumbar spine wo con* [id number] IMPRESSION: 1. Dorsal interconnecting froylan revision is new from previous. 2. Fracture of the new interconnecting froylan on the RIGHT at the L4 level with 1 shaft width of displacement. This is at the level of the connecting anchor. LE FT interconnecting froylan revision appears intact. 3. Bilateral sacroiliac fusion screws are new from previous. 4. Stable mild lucency involving the RIGHT S1 pedicle screw. 5. Advanced S-shaped thoracolumbar scoliosis. No acute compression fractures. 6. Vacuum disc phenomenon L2-L3. 7. Osteopenia throughout the visualized bony structures.
== END 2022-03-19 11:20 | disposition home or self-care (01) ==
LOC: RAD 11:22
PROVIDERS: PCP Nurse Practitioner; Visit Provider Orthopaedic Surgery
DX: M43.27 Fusion of spine, lumbosacral region (principal); Z48.89 Encounter for other specified surgical aftercare; Z96.7 Presence of other bone and tendon implants; T84.216A Breakdown (mechanical) of internal fixation device of vertebrae, initial encounter; Y83.8 Other surgical procedures as the cause of abnormal reaction of the patient, or of later complication, without mention of misadventure at the time of the procedure; M85.89 Other specified disorders of bone density and structure, multiple sites
CPT/HCPCS: 72128; 72131; 72192

== ENCOUNTER → 2022-03-20 09:58 | Outpatient (BNVA) | payer MEDICARE, MEDICAID, SELFPAY | PROVIDERS: PCP Nurse Practitioner; Visit Provider Orthopaedic Surgery | DX: M54.42 Lumbago with sciatica, left side (principal); M54.41 Lumbago with sciatica, right side; T84.296A Other mechanical complication of internal fixation device of vertebrae, initial encounter; Z98.890 Other specified postprocedural states | CPT/HCPCS: 99214 ==

== ENCOUNTER → 2022-07-14 14:12 | Outpatient (BNVA) | payer MEDICARE, MEDICAID, SELFPAY | PROVIDERS: PCP Nurse Practitioner; Visit Provider Nurse Practitioner | DX: E03.8 Other specified hypothyroidism (principal); E78.2 Mixed hyperlipidemia; E55.9 Vitamin D deficiency, unspecified; E53.8 Deficiency of other specified B group vitamins; M43.20 Fusion of spine, site unspecified; G57.93 Unspecified mononeuropathy of bilateral lower limbs; K59.01 Slow transit constipation; F41.1 Generalized anxiety disorder; R10.9 Unspecified abdominal pain; G43.909 Migraine, unspecified, not intractable, without status migrainosus | CPT/HCPCS: 80053; 80061; 82306; 82607; 84443; 85025 ==

== ENCOUNTER 2022-08-04 11:52 | Outpatient (CLI) | payer MEDICARE, MEDICAID, SELFPAY ==
--- NOTE | 2022-08-04 11:45 | MR_ITS ---
WS: [id number] MRI HEAD WITHOUT CONTRAST TECHNIQUE: Sagittal T1, T2 axial, T2 axial FLAIR, axial and coronal T1 images, axial susceptibility w eighted imaging, axial diffusion weighted images, and coronal T2 images were obtained. CLINICAL INFORMATION: R51.9 - Headache, unspecified COMPARISON: MRI September 13, 2021 FINDINGS: No evidence of restricted diffusion to suggest acute ischemia. Ventricular system and basal cisterns are patent. Moderate small vessel changes with mild to moderate parenchymal volume loss unchanged from previous. Small vessel changes in the elizabeth. Normal posterior fossa. Normal vascular flow voids at the skull base. No extra-axial fluid collections. No evidence of mass or mass effect. Mucosal thickening in the ethmoid air cells. Mastoid air cells are well aerated . No hemosiderin on the susceptibility weighted images. Normal optic chiasm and pituitary infundibulum. Moderate symmetric atrophy temporal lobes and hippocampal formations. Visualized proximal 7th and 8t h nerves are normal in appearance. Normal visualized trigeminal nerve root entry zones. MR/MR head wo con* [id number] IMPRESSION: 1. No evidence of restricted diffusion to suggest acute ischemia. 2. Moderate small vessel changes. Mild to moderate parenchymal volume loss. 3. Small vessel changes in the elizabeth. 4. Proximal 7th and 8th cranial nerves are normal in appearance. Normal visual ized cavernous sinuses.Normal visualized trigeminal nerve root entry zones. 5. No hemosiderin on the susceptibility weighted images. 6. Moderate symmetric atrophy temporal lobes and hippocampal formations. 7. Overall no significant changes compared to September 13, 2021.
== END 2022-08-04 11:53 | disposition home or self-care (01) ==
LOC: RAD 11:54
PROVIDERS: PCP Nurse Practitioner; Visit Provider Nurse Practitioner
DX: R51.9 Headache, unspecified (principal); G31.9 Degenerative disease of nervous system, unspecified
CPT/HCPCS: 70551

== ENCOUNTER 2022-08-19 10:07 | Outpatient (CLI) | payer MEDICARE, MEDICAID, SELFPAY ==
--- NOTE | 2022-08-19 10:00 | US_ITS ---
WS: [id number] Complete ABDOMINAL ULTRASOUND HISTORY: R10.9 - Unspecified abdominal pain COMPARISON: Prior CT of 12/10/2021 and prior ultrasound 04/29/2012 Technically difficult evaluation due to body habitus and bowel gas. Liver: 13.1 cm in length. Liver is not visualized in its entirety. No mass identified. No bile duct d ilatation. Portal Vein: Normal hepatopetal flow with monophasic waveform. Gallbladder: Prior cholecystectomy Pancreas: Completely obscured by bowel gas. CBD: 1.0 cm. Mildly prominent common bile duct. Similar to the prior study from 2011. Right kidney: 10.8 cm x 4.0 cm x 3.9 cm. No mass, cortical thickening or hydronephrosis. Left kidney: 10.1 cm x 4.1 cm x 5.4 cm. No mass, cortical thickening or hydronephrosis. Spleen: Normal size and echogenicity. Abdominal aorta and IVC are within normal limits. No ascites. US/US abdomen complete* [id number] IMPRESSION: 1. Technically difficult evaluation of the abdominal structures due to body bear bitus. 2. Prior cholecystectomy. 3. Mild common bile duct dilatation, similar to the study from 2011. Dilatatio n is probably on the basis of the cholecystectomy. 4. No ascites. No mass identified.
== END 2022-08-19 10:08 | disposition home or self-care (01) ==
PROVIDERS: PCP Nurse Practitioner; Visit Provider Nurse Practitioner
DX: R10.9 Unspecified abdominal pain (principal); Z90.49 Acquired absence of other specified parts of digestive tract; M54.42 Lumbago with sciatica, left side; M54.41 Lumbago with sciatica, right side
CPT/HCPCS: 76700; 93005; 99214

== ENCOUNTER 2022-08-20 11:39 | Inpatient (IN) | payer MEDICARE, MEDICAID, SELFPAY ==
[2022-08-14 11:16] VITALS: BMI 21.6
--- NOTE | 2022-08-14 11:31 | ECG_ITS ---
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 Measurements Intervals [place] Rate: 68 P: 55 LA: 143 QRS: -5 QRSD: 81 T: 26 QT: 394 QTc: 420 Interpretive Statements SINUS RHYTHM Compared to ECG 12/10/2021 11:28:45 ST (T wave) deviation no longer present Electronically Signed On 08-14-2022 12:07:33 CDT by Sumanth Purcell M.D. [id number]
--- NOTE | 2022-08-14 17:23 | ANES.PREANE2 ---
Pre-Anesthetic Assessment Height/Weight: Height 1.73 m Weight 64.41 kg Preop Diagnosis: scoliosis with broken hardware Operation Date: 08/20/22 11:15 Proposed Procedures p Spinal Fusion [id number] w/revision [id number](Not Applicable) - Puma Perez, Familial anesthetic complications: none Was Beta Milli taken within 24 hours: N/A Was Clonidine taken within 24 hours: N/A Social Tobacco and No alcohol Exam alert, oriented x 3 and regular rate & rhythm Airway Submandibular: within normal limits Cervical ROM: within normal limits Mallampati: Class II Dentition: false CV/HEM Coronary Artery Disease, Congestive Heart Failure and Hypertension CV/HEM: CAD, CHF (class III) and HTN? Comments:? 03/15 echo CONCLUSIONS ?1. Normal left ventricular size, systolic function and wall ?thickness, with no regional wall motion abnormalities. Left ?ventricular ejection fraction is estimated at 65 %. Normal ?diastolic function. ?2. Normal right ventricular size and systolic function. ?3. No significant valvular abnormality. ?4. Normal pulmonary artery pressure. ?5. When compared to previous echocardiogram dated 03/30/2019, ?left ventricular systolic function has improved. GI Gastroesophageal Reflux Disease Metabolic Thyroid Disease [facility] Fibromyalgia, Lower Back Pain and Osteoarthritis/DJD Neuropsych Anxiety and Depression Anesthetic Plan ASA status: 3 Anesthesia: General Other: Discussed a.line and transfusion Medications/Allergies Home Medications Medication Instructions Recorded Confirmed Last Taken Type potassium gluconate 595 mg (99 mg) 595 mg PO TID@08,,03/12/20 08/14/22 08/04/21 History tablet [id number] Bone Growth Stimulator #1 ea 07/26/21 08/08/22 Unknown Rx carvedilol 12.5 mg tablet 12.5 mg PO DAILY 08/02/21 08/14/22 08/04/21 History Duoderm #10 ea 08/06/21 08/08/22 Unknown Rx baclofen 10 mg tablet See Rx Instructions .Route 07/14/22 08/14/22 Unknown Rx .COMPLEX #120 tabs cunwefqeqo-uwbdbhs-fdbwuutn 50 1 cap PO TID Migraine Headache #90 07/14/22 08/14/22 Unknown Rx mg-325 mg-40 mg capsule caps calcium carbonate 500 mg-vitamin 1 tab PO TID #60 tabs 07/14/22 08/14/22 Unknown Rx D3 5 mcg (200 unit) tablet (Os-Alejo 500 + D3) fenofibrate micronized 134 mg 134 mg PO DAILY@0800 #30 caps 07/14/22 08/14/22 Unknown Rx capsule gabapentin 800 mg tablet 800 mg PO TID #90 tabs 07/14/22 08/14/22 Unknown Rx levothyroxine 50 mcg tablet 50 mcg PO DAILY@1500 #30 tabs 07/14/22 08/14/22 Unknown Rx linaclotide 145 mcg capsule 145 mcg PO BEDTIME #30 caps 07/14/22 08/14/22 Unknown Rx (Linzess) paroxetine HCl 30 mg tablet 30 mg PO DAILY@0800 #30 tabs 07/14/22 08/14/22 Unknown Rx syringe with needle 3 mL 25 gauge #5 ea 07/14/22 08/08/22 Unknown Rx x 1 (BD Luer-Rae Syringe) ergocalciferol (vitamin D2) 1,250 1,250 mcg PO .weekly #4 caps 08/08/22 08/14/22 Unknown Rx mcg (50,000 unit) capsule hydrocodone 5 mg-acetaminophen 325 1 tab PO Q4H PRN pain 5 days #30 08/14/22 08/14/22 Unknown Rx mg tablet tabs Allergies Allergy/AdvReac Type Severity Reaction Status Date / Time atorvastatin [From Lipitor] Allergy Unknown known Verified 08/14/22 11:00 ezetimibe [From Zetia] Allergy Unknown unknown Verified 08/14/22 11:00 rosuvastatin [From Crestor] Allergy Unknown unknown Verified 08/14/22 11:00 Whdqate-KST-EoR Reductase Allergy Unknown Unknown Verified 08/14/22 11:00 Inhibitor [Mdeoeka-Xbh-Net Reductase Inhibitor] Sulfa (Sulfonamide Allergy Unknown Unknown Verified 08/14/22 11:00 Antibiotics) sumatriptan [From Imitrex] Allergy Unknown known Verified 08/14/22 11:00 IV contrast dye Allergy ALGY-Anaphy Uncoded 08/14/22 11:00 laxis [facility] Anesthesia Medical History Adult onset hypothyroidism Anxiety, generalized CAD (coronary artery disease) CHF (congestive heart failure), NYHA class III Chronic bilateral low back pain with bilateral sciatica Constipation, slow transit Essential (primary) hypertension Fibromyalgia muscle pain 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 Gastric reflux Hypotension, unspecified Mixed hyperlipidemia Neuropathic pain of both legs Osteopenia of multiple sites Vitamin B12 deficiency Vitamin D deficiency Surgical History History of back surgery History of cholecystectomy History of hysterectomy History of tonsillectomy Family History Other Arthritis Coronary artery disease involving [place] coronary artery of [place] heart with unstable angina pectoris Diabetes Hypertension Thyroid condition Social History Smoking and tobacco status: current every day smoker Second hand smoke exposure: Yes Smoking risk assessment/counseling performed?: Yes Alcohol intake: never Desire information about alcohol rehabilitation?: No Counseling given: No Desire information about substance/drug rehabilitation?: No Counseling given: No Adopted: No Caregiver/support person: Yes Lives independently: No Household members: family Housing: House Marital status: service: No Current occupational status: disabled History of recent travel: No Current gender identity: Female Data Anesthesia Cardiac Studies: Echocardiogram Ultrasound 03/01/21
[2022-08-20] VITALS (17 sets, daily range): BP systolic 90–145; BP diastolic 58–92; PULSE 66–80; RESP 10–19; TEMP 36.2–36.6; O2SAT 92–98
--- NOTE | 2022-08-20 | XR_ITS ---
WS: [id number] Exam: XR lumbar spine 2-3V* [id number] Date/Time of Exam: 08/20/2022 12:00 AM Reason For Exam: OR PICS Intraoperative AP and lateral images of the lumbar spine are submitted for evaluation. Posterior rods bridge the thoracic and lumbar spine extending from T5 to S2. Pedicle screws are noted at L1, L4, L5, S1 and S2. Additional pedicle screws in T11, T9, T7, and T5. Screws bridge the bilate ral SI joints. There is angular dextroscoliosis of the thoracolumbar junction. There is anterior plat e and screw fixation of L5 and S1. Disc spacers at L5-S1 and L4-5. An additional anterior screw is no parish at the L3-4 disc level. An ET tube is noted. XR/XR lumbar spine 2-3V* [id number] IMPRESSION: 1. Posterior rods and multiple pedicle screws bridge the thoracic and lumbar sp ine as noted above. There is angular dextroscoliosis at the thoracolumbar junct ion.
--- NOTE | 2022-08-20 | SCC_ITS ---
Procedure done: 1. T3 - Pelvis fusion 2. T3 -S1 instrumentatin 3. lumbopelvic fixation 4. bone marrow aspiration from right iliac crest 5. Use of computer navigation stereotactic for spine 6. removal of hardware from the spine 7. use of allograft 6 seconds of fluoroscopic guidance, for a cumulative dose of 34 mGy, was provided to Dr. Perez by the radiology department. C-arm images of the lumbar spine were saved for the patient's permanent record. TIERRAD
--- NOTE | 2022-08-20 06:15 | W.PM.OPSUD ---
Surgery/Procedure H&P Update DATE OF PROCEDURE: August 20, 2022 DATE H&P PERFORMED: 08/19/22 H&P UPDATE INFORMATION: I have reviewed H&P completed within last 30 days, I have examined patient prior to procedure and No changes to prior documentation PREOP DIAGNOSIS: scoliosis with broken hardware PLANNED PROCEDURE: Operation Date: 08/20/22 07:00 Proposed Procedures p Spinal Fusion [id number] w/revision [id number](Not Applicable) - Puma Perez DO
[2022-08-20] MEDS: sodium chloride 0.9% 1,000 ML 30 ML (06:36)
[2022-08-20] MEDS: ceFAZolin 2,000 MG in sodium chloride 0.9% (plus) 50 ML 100 MG IV ×3 (07:00→22:47)
--- NOTE | 2022-08-20 07:53 | SUR.OPER ---
called and notified son of surgical start.
[2022-08-20] MEDS: vancomycin 1,000 MG SDV 1000 MG XX (08:00)
[2022-08-20] MEDS: heparin, porcine 1,000 unit/mL INJ 10 mL 10000 UNIT IRRIGATION (08:01)
[2022-08-20 08:02] LABS: Basophils % 0.2 %; Eosinophils # 0.1 10^3/uL (0.0-0.8); Eosinophils % 0.9 %; Hematocrit 43.4 % (37.0-47.0); Hemoglobin 13.4 g/dL (11.5-15.3); Lymphocytes # 1.4 10^3/uL (0.8-4.8); Lymphocytes % 13.7 %; Mean Corpuscular HGB Conc 30.9 g/dL (30.0-36.0); Mean Corpuscular Hemoglobin 27.6 pg (28.0-34.0); Mean Corpuscular Volume 89.5 fl (81-99); Mean Platelet Volume 11.9 fL (7.4-10.4); Monocytes # 0.6 10^3/uL (0.2-0.9); Monocytes % 6.2 %; Neutrophils # 7.91 10^3/uL (1.8-7.7); Neutrophils % 78.5 %; Nucleated Red Blood Cells % 0 %; Platelet Count 263 10^3/cmm (130-400); Red Blood Count 4.85 10^6/uL (4.1-5.3); Red Cell Distribution Width 16.4 % (12.1-15.1); White Blood Count 10.1 10^3/uL (4.0-10.0)
--- NOTE | 2022-08-20 09:50 | SUR.OPER ---
Called son at updated him on surgical progress.
--- NOTE | 2022-08-20 12:32 | PM.OP ---
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 Post-op diagnosis: same Procedure done: 1. T3 - Pelvis fusion 2. T3 -S1 instrumentatin 3. lumbopelvic fixation 4. bone marrow aspiration from right iliac crest 5. Use of computer navigation stereotactic for spine 6. removal of hardware from the spine 7. use of allograft Surgeon: Puma Perez Phlebotomy Services Representative: Tristan Avina Phlebotomy Services Representative: The surgical first assistant, Tristan Avina, PAC was needed for his expertise under the microscope. He was important and necessary throughout the procedure to complete in a safe and timely manner. He assisted with patient positioning prepping and draping tissue retraction suctioning of the operative field protection of the dural sac and tissue closure Estimated blood loss (mL): 200 Procedure: 1. T3 - Pelvis fusion 2. T3 -S1 instrumentatin 3. lumbopelvic fixation 4. bone marrow aspiration from right iliac crest 5. Use of computer navigation stereotactic for spine 6. removal of hardware from the spine 7. use of allograft Patient was brought to the operative suite after undergoing anesthesia was placed in the prone position. Neuro monitoring was attached and was present for the entire case. There were no breaches in on the neuro monitoring side. Patient was prepped and draped normal sterile fashion. Skin incision was made from T3 down to the sacrum. Dissection was made through the scar tissue out to the rods. Broken froylan was identified. The The Screw Was Removed and Rods Were Removed. There Were Lamina Wiring That Was Removed As Well. Once All Hardware Is Moved Attention Was Then Brought to Doing the Bone Marrow Aspiration. Bone marrow aspiration was performed in the right iliac crest this was done using the Orly cell bone marrow aspiration kit. The awl was inserted and the bone marrow was aspirated at 1 mm increments 20 cc of bone marrow aspirate was taken. This was then mixed with the ostial amp allograft. Was brought to placing the fiducial into the right iliac crest. This was done by placing 2 pins in the right iliac crest. The fiducial was then attached to these 2 pins. The C-arm was brought in and spun around the patient. Information was loaded from the C-arm into the computer which was later used for placing pedicle screws using computer navigation. Next attention was brought to placing pedicle screws. Pedicle screws were placed at T3 bilaterally. This was done using the computer navigated awl followed by the pedicle feeler followed by placing the screw under computer navigation. Screws were replaced at T5 and T6 bilaterally. Screws placed bilaterally at T8 and T10 bilaterally and L1 bilaterally. And then the remaining screws from L3-S1 were present. In the screws in the iliac crest remained. Was brought to placing the rods this froylan was placed from T3 down to S1 and attaching onto the iliac screws. Caps were then placed and all torqued in position. This was done bilaterally. Next the bone was decorticated. This was done using high-speed bur from T3 however down to the sacrum. In the ostial amp allograft was packed into the decorticated region. Wound was then closed in a layered fashion using 0 Vicryl 2-0 Vicryl and Monocryl to close the skin. Sterile dressings were applied and patient was transferred to the PACU in stable condition.
--- NOTE | 2022-08-20 13:50 | PC.NURSE ---
Patient arrived from PACU. Nurse assesed patient with PACU nurse. No drainage noted in hemovac drain. Patient is resting with even and unlabored breathing. Patient is in no pain at this time. Post op vital signs have been initiated. Nurse will continue to monitor
[2022-08-20] MEDS: levothyroxine 50 mcg Tablet PO (14:24)
[2022-08-20] MEDS: GABAPENTIN 400 MG 800 MG PO ×2 (14:24→20:50)
[2022-08-20] MEDS: calcium carb-vit d 500mg-200unit 1 Tablet 1 EACH PO ×2 (14:24→20:50)
[2022-08-20] MEDS: oxyCODONE 5 mg IR Tab/Cap 10 MG PO (14:25)
[2022-08-20] MEDS: baclofen 10 mg Tablet PO ×2 (14:31→20:51)
[2022-08-20] MEDS: lactated ringers 1,000 ML 90 ML IV ×2 (14:49→20:50)
--- NOTE | 2022-08-20 17:41 | ANE.PACU2 ---
Inpatient post-anesthesia follow up: Airway intact: Yes Vital signs: Temperature 97.1 F Pulse Rate 73 Respiratory Rate 16 Blood Pressure 145/92 Pulse Oximetry 98 Oxygen Delivery Me thod Nasal Cannula Oxygen Flow Rate 2.5 Fraction of Inspir ed Oxygen Hydration adequate: Yes Nausea and vomiting: No Pain level: 4 Mental status: Baseline
[2022-08-20] MEDS: morphine 4 mg/mL SDV 1 mL 2 MG IVP (17:49)
[2022-08-20] MEDS: ondansetron 2 mg/ML SDV 2 mL 4 MG IVP (19:39)
[2022-08-20] MEDS: oxyCODONE 20 mg ER (12 HR) Tablet PO (19:39)
[2022-08-20] MEDS: ketorolac 30 mg/mL INJ IVP (22:48)
[2022-08-21] VITALS (19 sets, daily range): BP systolic 87–145; BP diastolic 45–83; PULSE 72–98; RESP 16–20; TEMP 36.6–37.7; O2SAT 85–95
[2022-08-21] MEDS: oxyCODONE 5 mg IR Tab/Cap 10 MG PO ×2 (01:02→08:49)
[2022-08-21] MEDS: ondansetron 2 mg/ML SDV 2 mL 4 MG IVP (01:28)
[2022-08-21] MEDS: baclofen 10 mg Tablet 20 MG PO (05:22)
[2022-08-21] MEDS: ketorolac 30 mg/mL INJ IVP (05:23)
[2022-08-21] MEDS: ceFAZolin 2,000 MG in sodium chloride 0.9% (plus) 50 ML 100 MG IV (06:14)
[2022-08-21] MEDS: lactated ringers 1,000 ML 90 ML IV ×2 (06:14→23:06)
--- NOTE | 2022-08-21 07:29 | PM.PN ---
Subjective Subjective: POD 1 Patient resting comfortably. Denies shortness of breath, chest pain, headaches. Vitals/I&O/Wt Last Vital Signs Temp 97.9 F 08/21/22 04:55 Pulse 98 08/21/22 04:55 Resp 20 H 08/21/22 04:55 BP 134/72 08/21/22 04:55 Pulse Ox 90 08/21/22 04:55 O2 Del Method 08/20/22 15:37 O2 Flow Rate 2.5 08/20/22 15:37 08/20/22 08/21/22 08/21/22 22:59 06:59 14:59 Intake Total 591.5 / 1941.5 1290 / 3231.5 Output Total 1050 / 1525 Balance 591.5 / 1466.5 240 / 1706.5 Physical Exam Narrative: She is alert orient x3 has good general appearance normal mood and affect. No apparent distress. Incision is clean and dry with Hemovac intact and functioning. Zimmerman catheter intact. She is wiggling her toes fires all motor groups of both lower extremities. Moves both upper extremities with good strength as well. Hands are warm wiggles all digits with hands and fingers. Urinary Catheter Management: Zimmerman: Cath Placed During This Visit: yes Reason for Continuing Indwelling Catheter: Required Immobilization for Trauma or Surgery or Anesthesia Urinary Catheter Date of Insertion: 08/20/22 Urinary Catheter Time of Insertion: 07:10 Data : 08/20/22 06:35 A&P Assessment and plan (1) Fusion of spine: Encourage incentive spirometer for pulmonary toilet. We will have physical therapy evaluate and mobilize. Discussed no bending lifting or twisting. Discussed the importance of smoking cessation. I have child protective services social worker consult for placement. Discussed discontinue Hemovac drain tomorrow. If she is able to mobilize safely with physical therapy we can discontinue Zimmerman catheter later today. Attestations Medical Necessity Statement*: await placement and better pain control Coding Level of Care Code Acute Burn Table Operator for Antonia Medina Diagnoses Fusion of spine M43.20
[2022-08-21] MEDS: oxyCODONE 20 mg ER (12 HR) Tablet PO ×2 (08:46→21:21)
[2022-08-21] MEDS: docusate sodium 100 mg Capsule PO ×2 (08:47→17:16)
[2022-08-21] MEDS: PARoxetine 20 mg Tablet 30 MG PO (08:47)
[2022-08-21] MEDS: GABAPENTIN 400 MG 800 MG PO ×3 (08:47→20:06)
[2022-08-21] MEDS: NIFEdipine ER (24 hr) 30 mg Tablet PO (08:47)
[2022-08-21] MEDS: calcium carb-vit d 500mg-200unit 1 Tablet 1 EACH PO ×3 (08:48→20:07)
[2022-08-21] MEDS: carvedilol 12.5 mg Tablet PO (08:48)
--- NOTE | 2022-08-21 10:55 | PC.CHAP ---
Pastoral Care Encounter/Spiritual Assessment Type of Contact [] Declined box truck driver visit [] Patient/Family/Request visit [] Outpatient visit [] Follow-up visit [] Physician referral [] Code/Alert [x] Routine visit [] Staff referral [] Actively dying [] Patient sleeping [] Family support [] [] Out of room [] Palliative care [] [x] Receiving care in room [] Pre-surgical visit [] Trauma [] Long length of stay [] ICU visit [] Other: Relational/Emotional Strength [ ] Patient feels connected with others/family/visitors/staff [] Distress [] Loneliness/isolation [] Abandonment Spirituality of Patient [ ] Person of [place] [] Attends [employer] of their [place] [ ] Believes in Prayer [] Reads Bible or Mosque materials [] There are Spiritual issues to be addressed Director Medical Writing Interventions [ ] Prayer [ ] Active listening [ ] Non-anxious presence [ ] Spiritual/emotional support [] Crisis/trauma care [ ] Spiritual counseling [] Bereavement support [] Provided bereavement packet [] Provided Bible/devotional materials [] Provided toy/stuffed animal, coloring book to patient or family member [] Provided Communion [] Anointing/[place] [] Salvation [ ] Completed spiritual assessment [] Other: Impact on Illness or Injury [] Angry [] Fearful [ ] Anxious [] Often cries [] Exhaustion [] Unable to work [] Unable to attend religious [] Unable to walk/stand [] Unable to read [] Unable to drive [] Unable to eat/drink [] Unable to sleep [] Unable to be with family [] Patient intubated [] Other: Summary has had 3 back surgerys in some pain +1 has a good attitude well be going home Time spent with patient 10 mins
[2022-08-21] MEDS: sodium chloride 0.9% 500 ML 999 ML IV (13:10)
[2022-08-21 13:45] LABS: Basophils % 0.2 %; Eosinophils % 0.1 %; Hemoglobin 7.9 g/dL (11.5-15.3); Mean Corpuscular HGB Conc 30.4 g/dL (30.0-36.0); Mean Corpuscular Hemoglobin 28.5 pg (28.0-34.0); Mean Corpuscular Volume 93.9 fl (81-99); Mean Platelet Volume 11.8 fL (7.4-10.4); Neutrophils # 7.58 10^3/uL (1.8-7.7); Neutrophils % 79.2 %; Nucleated Red Blood Cells % 0 %; Platelet Count 159 10^3/cmm (130-400); Red Blood Count 2.77 10^6/uL (4.1-5.3); Red Cell Distribution Width 16.3 % (12.1-15.1); White Blood Count 9.6 10^3/uL (4.0-10.0)
[2022-08-21 14:00] LABS: Anion Gap 9.9 (5-19); Blood Urea Nitrogen 20 mg/dL (8-23); Calcium 8.2 mg/dL (8.5-10.5); Carbon Dioxide 26 mmol/L (22-29); Chloride 107 mmol/L (98-107); Glomerular Filtration Rate 56.4 mL/min (90-130); Glucose 113 mg/dL (65-115); Osmolality Calculated 291 mOsm/kg (285-295); Potassium 3.9 mmol/L (3.5-5.1); Sodium 139 mmol/L (136-145)
[2022-08-21] MEDS: fexofenadine 60 mg Tablet PO (17:15)
[2022-08-21] MEDS: levothyroxine 50 mcg Tablet PO (17:16)
[2022-08-21] MEDS: sodium chloride 0.9% 100 mL Bag 50 ML IV (17:35)
[2022-08-21] MEDS: acetaminophen 325 mg Tablet 650 MG PO (20:07)
[2022-08-21] MEDS: baclofen 10 mg Tablet PO (21:24)
[2022-08-22] VITALS (8 sets, daily range): BP systolic 119–161; BP diastolic 69–78; PULSE 78–90; RESP 14–19; TEMP 36.9–38.2; O2SAT 89–94
[2022-08-22] MEDS: ketorolac 30 mg/mL INJ IVP (03:31)
[2022-08-22] MEDS: oxyCODONE 5 mg IR Tab/Cap 10 MG PO ×2 (05:21→14:52)
[2022-08-22] MEDS: baclofen 10 mg Tablet 20 MG PO (05:22)
[2022-08-22 06:20] LABS: Hematocrit 31.8 % (37.0-47.0); Hemoglobin 9.6 g/dL (11.5-15.3)
[2022-08-22] MEDS: NIFEdipine ER (24 hr) 30 mg Tablet PO (07:57)
[2022-08-22] MEDS: calcium carb-vit d 500mg-200unit 1 Tablet 1 EACH PO ×3 (07:57→21:10)
[2022-08-22] MEDS: PARoxetine 20 mg Tablet 30 MG PO (07:57)
[2022-08-22] MEDS: docusate sodium 100 mg Capsule PO (07:57)
[2022-08-22] MEDS: GABAPENTIN 400 MG 800 MG PO ×3 (07:57→21:10)
[2022-08-22] MEDS: carvedilol 12.5 mg Tablet PO (07:57)
[2022-08-22] MEDS: oxyCODONE 20 mg ER (12 HR) Tablet PO ×2 (07:58→19:32)
--- NOTE | 2022-08-22 09:13 | PM.PN ---
Subjective Subjective: Patient is doing better today than yesterday. At this point plan will be to continue getting up with physical therapy DC her Hemovac Vitals/I&O/Wt Last Vital Signs Temp 99.3 F 08/22/22 08:00 Pulse 78 08/22/22 08:00 Resp 16 08/22/22 08:00 BP 125/73 08/22/22 08:00 Pulse Ox 92 08/22/22 08:00 O2 Del Method 08/22/22 08:00 O2 Flow Rate 2 08/22/22 08:00 FiO2 2.5 08/21/22 21:00 08/21/22 08/22/22 08/22/22 22:59 06:59 14:59 Intake Total 1500 / 1500 2330 / 3830 Output Total 250 / 250 2425 / 2675 Balance 1250 / 1250 -95 / 1155 Physical Exam Narrative: Wound is clean dry and intact. Urinary Catheter Management: Zimmerman: Cath Placed During This Visit: yes Reason for Continuing Indwelling Catheter: Other Urinary Catheter Date of Insertion: 08/20/22 Urinary Catheter Time of Insertion: 07:10 Data : 08/22/22 05:28 08/21/22 13:20 A&P Assessment and plan (1) Fusion of spine: Patient is postop day #2 patient is doing better today. Plan will be to get up with therapy and DC her Hemovac DC her Zimmerman anticipate discharge possibly tomorrow. Attestations Medical Necessity Statement*: pain control Coding Level of Care Code Acute Editorial Assistant for Antonia Medina Diagnoses Fusion of spine M43.20
[2022-08-22] MEDS: lactated ringers 1,000 ML 90 ML IV ×2 (09:34→19:34)
--- NOTE | 2022-08-22 10:13 | PC.NURSE ---
hemovac removed without complication. 2X2 and tegaderm applied. patient tolerated well.
[2022-08-22] MEDS: levothyroxine 50 mcg Tablet PO (14:52)
[2022-08-22] MEDS: baclofen 10 mg Tablet PO ×2 (14:52→21:10)
[2022-08-23] VITALS (13 sets, daily range): BP systolic 102–135; BP diastolic 63–75; PULSE 76–100; RESP 14–21; TEMP 37.1–38.8; O2SAT 90–95
[2022-08-23] MEDS: ketorolac 30 mg/mL INJ IVP (00:48)
[2022-08-23] MEDS: oxyCODONE 5 mg IR Tab/Cap 10 MG PO ×3 (02:30→19:35)
[2022-08-23] MEDS: baclofen 10 mg Tablet 20 MG PO (06:28)
[2022-08-23] MEDS: oxyCODONE 20 mg ER (12 HR) Tablet PO ×2 (08:15→21:30)
[2022-08-23] MEDS: NIFEdipine ER (24 hr) 30 mg Tablet PO (08:15)
[2022-08-23] MEDS: carvedilol 12.5 mg Tablet PO (08:15)
[2022-08-23] MEDS: docusate sodium 100 mg Capsule PO ×2 (08:16→17:37)
[2022-08-23] MEDS: PARoxetine 20 mg Tablet 30 MG PO (08:16)
[2022-08-23] MEDS: GABAPENTIN 400 MG 800 MG PO ×3 (08:16→21:31)
--- NOTE | 2022-08-23 09:00 | PC.SOCIAL ---
Pg 2 IMM Explained to pt Pg 2 IMM. No questions voiced. Provided pt a copy. Initialed, dated, & timed a copy & placed in chart.
[2022-08-23] MEDS: calcium carb-vit d 500mg-200unit 1 Tablet 1 EACH PO ×3 (09:52→21:31)
--- NOTE | 2022-08-23 12:21 | P.PN_ITS ---
Subjective Subjective: Patient is status post T3 to pelvis fusion. Patient had slight fever last night. I encouraged her to use the incentive spirometer. She is able to walk to the bathroom has significant improvement. Vitals/I&O/Wt Last Vital Signs Temp 99.6 F 08/23/22 08:32 Pulse 87 08/23/22 08:32 Resp 17 08/23/22 08:32 BP 113/65 08/23/22 08:32 Pulse Ox 90 08/23/22 08:32 O2 Del Method 08/23/22 08:32 O2 Flow Rate 2 08/23/22 08:00 FiO2 2.5 08/23/22 08:00 08/22/22 08/23/22 08/23/22 22:59 06:59 14:59 Intake Total 900 / 1842 2110 / 3952 Balance 900 / 1042 2110 / 3152 Physical Exam Narrative: Laying in bed comfortable. Moving all extremities. Just complai niecy of some back spasms. Patient is passing gas has not had a bowel movement yet but would like to wait to take her medication at home. Urinary Catheter Management: Zimmerman: Cath Placed During This Visit: yes, but has since been removed by the nurse Reason for Continuing Indwelling Catheter: Does Not Meet Criteria Urinary Catheter Date of Insertion: 08/20/22 Urinary Catheter Time of Insertion: 07:10 Date Urinary Catheter Removed: 08/22/22 Time Urinary Catheter Discontinued: 10:04 Data : 08/22/22 05:28 08/21/22 13:20 A&P Assessment and plan (1) Encounter for postoperative care: Status post T3 to pelvis fusion. Anticipate discharge tomorrow encourage incentive spirometer use and to work more with therapy. We will keep here for pain control. Attestations Medical Necessity Statement*: Pain control working with therapy session go home tomorrow. Coding Level of Care Code Acute French Tutor for Antonia Medina Diagnoses Encounter for postoperative care Z48.89
--- NOTE | 2022-08-23 12:33 | PC.NURSE ---
pt refused med for constipation pt stated she has been passing gas but has not had bm for almost 4 days now. offered her milk of mag as standing prn order for constipation, pt refused it, offered prune juice or miralax, pt also refused. dr tracey jacques informed about her fever, coarse crackles on her left lung and constipation.
[2022-08-23] MEDS: baclofen 10 mg Tablet PO (14:12)
[2022-08-23] MEDS: levothyroxine 50 mcg Tablet PO (14:12)
[2022-08-23] MEDS: acetaminophen 325 mg Tablet 650 MG PO (17:37)
[2022-08-24] VITALS (9 sets, daily range): BP systolic 91–124; BP diastolic 49–70; PULSE 67–85; RESP 14–18; TEMP 36.6–38.4; O2SAT 71–96
[2022-08-24] MEDS: acetaminophen 325 mg Tablet 650 MG PO (01:12)
--- NOTE | 2022-08-24 04:26 | PC.NURSE ---
patient refuses to wear oxygen, says she feels fine
[2022-08-24] MEDS: oxyCODONE 5 mg IR Tab/Cap 10 MG PO ×2 (05:10→11:08)
[2022-08-24] MEDS: baclofen 10 mg Tablet 20 MG PO (05:11)
[2022-08-24] MEDS: GABAPENTIN 400 MG 800 MG PO ×2 (08:39→15:00)
[2022-08-24] MEDS: PARoxetine 20 mg Tablet 30 MG PO (08:40)
[2022-08-24] MEDS: calcium carb-vit d 500mg-200unit 1 Tablet 1 EACH PO ×2 (08:40→15:01)
[2022-08-24] MEDS: NIFEdipine ER (24 hr) 30 mg Tablet PO (11:08)
[2022-08-24] MEDS: carvedilol 12.5 mg Tablet PO (11:08)
--- NOTE | 2022-08-24 13:00 | PC.NURSE ---
Surgeon at bedside Dr. Bartholomew is at bedside talking to pt. Notified that pt is in need of home oxygen this morning due to low spO2 even when sleeping and with 2 L on. Received order to get home o2 prior to discharge. She had another episode of fever post PT treatment, pt refused Tylenol. Encourage pt to get up and move around and to use IS often. No futher orders received.
--- NOTE | 2022-08-24 13:50 | PM.DCS ---
Discharge Providers Date of Admission: 08/20/22 11:39 Date of Discharge: August 24, 2022 Attending Provider at Admission: Puma Perez DO Attending Provider at Discharge: Puma Perez DO Primary Care Provider: TONI Fritz Diagnoses at Discharge Discharge Diagnosis (1) Encounter for postoperative care: Status: Acute Reason for Visit Reason for Visit: SPINAL FUSION C00-BLOWOH W/ REVISION Hospital Course Hospital Course uneventful Physical Exam Narrative: Patient doing well ambulated the length of the hallway today. Spasms are improving. Urinary Catheter Management: Zimmerman: Cath Placed During This Visit: yes, but has since been removed by the nurse Reason for Continuing Indwelling Catheter: Does Not Meet Criteria Urinary Catheter Date of Insertion: 08/20/22 Urinary Catheter Time of Insertion: 07:10 Date Urinary Catheter Removed: 08/22/22 Time Urinary Catheter Discontinued: 10:04 Discharge Data Studies Completed and Pending Completed Studies During Hospitalization Category Date Time Status XR lumbar spine 2-3V* [id number] Routine Exams 08/20/22 Completed Radiology Impressions Lumbar Spine X-Ray 08/20/22 00:00 IMPRESSION: 1. Posterior rods and multiple pedicle screws bridge the thoracic and lumbar spine as noted above. There is angular dextroscoliosis at the thoracolumbar junction. Laboratory Results WBC 9.6 10^3/uL (4.0-10.0) 08/21/22 13:20 RBC 2.77 10^6/uL (4.1-5.3) L 08/21/22 13:20 Hgb 9.6 g/dL (11.5-15.3) L 08/22/22 05:28 Hct 31.8 % (37.0-47.0) L 08/22/22 05:28 MCV 93.9 fl (81-99) 08/21/22 13:20 MCH 28.5 pg (28.0-34.0) 08/21/22 13:20 MCHC 30.4 g/dL (30.0-36.0) 08/21/22 13:20 RDW 16.3 % (12.1-15.1) H 08/21/22 13:20 Plt Count 159 10^3/cmm (130-400) 08/21/22 13:20 MPV 11.8 fL (7.4-10.4) H 08/21/22 13:20 Neut % (Auto) 79.2 % 08/21/22 13:20 Lymph % (Auto) 10.0 % 08/21/22 13:20 Garland % (Auto) 10.0 % 08/21/22 13:20 Eos % (Auto) 0.1 % 08/21/22 13:20 Baso % (Auto) 0.2 % 08/21/22 13:20 Neut # (Auto) 7.58 10^3/uL (1.8-7.7) 08/21/22 13:20 Lymph # (Auto) 1.0 10^3/uL (0.8-4.8) 08/21/22 13:20 Garland # (Auto) 1.0 10^3/uL (0.2-0.9) H 08/21/22 13:20 Eos # (Auto) 0.0 10^3/uL (0.0-0.8) 08/21/22 13:20 Baso # (Auto) 0.0 10^3/uL (0.0-0.1) 08/21/22 13:20 Nucleated RBC % (auto) 0 % 08/21/22 13:20 Nucleated RBCs # 0.0 /100WBC 08/21/22 13:20 Sodium 139 mmol/L (136-145) 08/21/22 13:20 Potassium 3.9 mmol/L (3.5-5.1) 08/21/22 13:20 Chloride 107 mmol/L (98-107) 08/21/22 13:20 Carbon Dioxide 26 mmol/L (22-29) 08/21/22 13:20 Anion Gap 9.9 (5-19) 08/21/22 13:20 BUN 20 mg/dL (8-23) 08/21/22 13:20 Creatinine 1.0 mg/dL (0.5-0.9) H 08/21/22 13:20 GFR Calculation 56.4 mL/min (90-130) L 08/21/22 13:20 Glucose 113 mg/dL (65-115) 08/21/22 13:20 Calculated Osmolality 291 mOsm/kg (285-295) 08/21/22 13:20 Calcium 8.2 mg/dL (8.5-10.5) L 08/21/22 13:20 Blood Type O Negative 08/20/22 06:35 Rho(D) Type Negative 08/20/22 06:35 Antibody Screen Negative 08/20/22 06:35 Crossmatch See Detail 08/20/22 06:35 Vitals Last Vital Signs Temp 101.2 F H 08/24/22 11:54 Pulse 82 08/24/22 11:54 Resp 18 08/24/22 11:54 BP 109/63 08/24/22 11:54 Pulse Ox 92 08/24/22 11:54 O2 Del Method 08/24/22 11:54 O2 Flow Rate 2 08/24/22 11:54 FiO2 2.5 08/23/22 08:00 Discharge Plan Discharge Patient Disposition: Home Health Service Condition: Stable Prescriptions: New hydrocodone-acetaminophen 5-325 mg tablet 1 - 2 tab PO .Q4-6H Qty: 40 0RF cyclobenzaprine 10 mg tablet 10 mg PO TID PRN (Reason: muscle spasm) 30 Days Qty: 90 0RF Continued (DME) Duoderm See Rx Instructions .Route .MEDSUPPLY Qty: 10 0RF Rx Instructions: As directed baclofen 10 mg tablet See Rx Instructions .ROUTE .COMPLEX Qty: 120 2RF Rx Instructions: 20mg po qam, 10mg @15:00,10mg @22:00; calcium carbonate-vitamin D3 [Os-Alejo 500 + D3] 500 mg-5 mcg (200 unit) tablet 1 tab PO TID Qty: 60 2RF gabapentin 800 mg tablet 800 mg PO TID Qty: 90 2RF Linzess 145 mcg capsule 145 mcg PO BEDTIME Qty: 30 2RF levothyroxine 50 mcg tablet 50 mcg PO DAILY@1500 Qty: 30 2RF paroxetine HCl 30 mg tablet 30 mg PO DAILY@0800 Qty: 30 2RF (DME) BD Luer-Rae Syringe 3 mL 25 gauge x 1 syringe See Rx Instructions .ROUTE .MEDSUPPLY Qty: 5 2RF Hold Instructions: Doctor's Order Rx Instructions: one every 3 weeks qlpkplycuz-ymbmvxy-jhwigcwh 50-325-40 mg capsule 1 cap PO TID Qty: 90 2RF Hold Instructions: Planning surgery (DME) E0748 Bone Growth Stimulator See Rx Instructions .Route .MEDSUPPLY Qty: 1 0RF Rx Instructions: As directed carvedilol 12.5 mg tablet 12.5 mg PO QAM potassium gluconate 595 mg (99 mg) Tablet 595 mg PO TID@,, nifedipine 30 mg tablet extended release 24hr 30 mg PO DAILY glycopyrrolate 1 mg tablet 1 mg PO BID buspirone 5 mg tablet 5 mg PO TID PRN (Reason: Anxiety) hydrocodone-acetaminophen 5-325 mg tablet 1 tab PO BEDTIME Vitamin B-12 1,000 mcg Tablet 1,000 mcg PO DAILY fenofibrate micronized 134 mg capsule 134 mg PO DAILY@15 ergocalciferol (vitamin D2) 1,250 mcg (50,000 unit) capsule 50,000 unit PO Q7D Rx Instructions: on thursday Discharge Orders: Discharge Order (Routine); Ordered 08/24/22 Ordered By: Puma Perez Referrals: [facility] [place] ([facility]) [Outside] Discharge Diet: Advance as tolerated Discharge Activity: Limit activity as instructed Patient Instructions: Opioid Safety Activity Restrictions/Additional Instructions: Thank you for choosing [facility] for your care! The following is a list of instructions, from your provider, to follow upon your discharge to ensure you have the optimal recovery from your recent injury or surgery. Follow-up care is a flores part of your treatment and safety. Be sure to make and go to all appointments and call your doctor if you are having problems. If you do not already have a follow-up appointment made, call Dr. Perez's] office in the next 1-3 days to make follow up appointment for ThursdayAugust 26 weeks at [phone]. It is also a good idea to know your test results and keep a list of the medicines you take. Medications will be prescribed for you at your provider's discretion. These medications are to be used as instructed; if they are taken more often that prescribed they will not be refilled early and in most cases will not be refilled at all. > When a refill is needed, you should contact jamia garza 2-3 business days before your prescription runs out. Medications will NOT be refilled by tenon machine operator providers after hours! > Many pain medications contain Tylenol (Acetaminophen). Do not consume more than 4,000 mg of Tylenol per day in total with any combination of medications. > Pain medications can cause constipation. Please use an over the counter stool softener as directed, while taking pain medications. Consult your local pharmacist with questions or recommendations on stool softeners. If constipation persists, contact our office or your primary care provider. > While under our care, you are not to receive pain medications or other controlled substances from any other provider unless our office is notified and approves. Any attempts to do so will result in refusal to prescribe any further pain medications and possible dismissal from our practice. ? Walking is essential for the healing process after surgery. We would like you to slowly advance your walking. This should be done on relatively flat clear ground (inside or out) or can be done on a treadmill. Remember this goal does not have to happen all at once, slowly increase your distance and duration. This can be broken into more more than one walk per day as tolerated. Patients who walk as directed after surgery rarely require Physical Therapy. In the unlikely event this issue arises your provider will direct hospital staff to make the appropriate arrangements. ? No lifting over 5 pounds {a gallon of milk) or bending/twisting until further notice. Each of these activities places an unnecessary amount of stress onto the body and can impede the delicate healing process. > Instead of bending at the waist, keep your back straight and bend at the knees. > Instead of twisting your torso, keep your back straight and turn your entire body with your feet. ? You may sleep in any position which makes you comfortable. Many patients find comfort sleeping in a reclining chair. It is not abnormal to have difficulty sleeping for the first several weeks following your surgery. We recommend trying Benadry! or Tylenol PM as directed to help with your sleeping difficulties. Both medications are over the counter and available without prescription. ? NO SMOKING!!! Smoking dramatically increases the probability of developing postoperative wound infections. ? Common complaints after lumbar and/or thoracic spine surgery include, but are not limited to: numbness and/or tingling in the legs, pain around the incision and surrounding tissues, muscle spasms, or stiffness of the middle to low back. Contact our office if these symptoms persist or if an acute change occurs. ? No driving for the first 3-5days, and not while taking narcotics until seen at your follow-up appointment and cleared. There are no restrictions for riding on short trips, however if you take a longer trip, arrangements should be made to make regular stops to get out of the vehicle and stretch . ? Swelling is an unfortunate event that will take place with any surgery and is the primary source of your postoperative discomfort. While walking and regular approved activities helps control inflammation, there are additional steps you can take to minimize swelling. > Place ice over the surgical site and surrounding tissue for twenty minutes, followed by applying a low/medium heat (heating pad) for an additional twenty minutes every 1-2 hours as needed for painrelief. > You may use of over the counter anti-inflammatory medications (Ibuprofen, Motrin, Aleve, Advil, etc) as directed on the package label. These types of medicines will significantly reduce the amount of discomfort you experience after surgery from swelling. It should be noted that if you have and allergy to any of these medications, or a history of ulcers or kidney disease you should consult you primary care provider prior to starting these medications. Patient's Health Concerns: use incentive spirometer Assessment: POD#5 spinal fusion Plan of Treatment: f/u this thursday for dressing change Discharge Attestations Time Spent in Discharge Care*: less than 30 min Quality Metrics Clinical Quality Measures [ No reported AMI, CVA or VTE this stay] Coding Level of Care Code Acute Chg FW DC note Diagnoses Encounter for postoperative care Z48.89
[2022-08-24] MEDS: baclofen 10 mg Tablet PO (15:01)
[2022-08-24] MEDS: levothyroxine 50 mcg Tablet PO (15:01)
--- NOTE | 2022-08-24 16:55 | PC.NURSE ---
home oxygen delivered by [employer]
--- NOTE | 2022-08-24 16:56 | PC.NURSE ---
Discharge Note Patient discharged to home via home health services] via private vehicle accompanied by son. Discharge instructions reviewed with patient and/or off premise service representative. Mobile pharmacy medications and/or prescriptions provided. Belongings/home medications returned.
== END 2022-08-24 16:55 | disposition home health service (06) | DRG 457 ==
LOC: MEDSURG 11:39
PROVIDERS: Anesthesiology; Physician Assistant; Admitting Provider Orthopaedic Surgery; PCP Nurse Practitioner; Visit Provider Orthopaedic Surgery
PROC: 0RG Upper Joints, Fusion (ICD-10-PCS; principal; 2022-08-20 07:00)
DX: T84.216A Breakdown (mechanical) of internal fixation device of vertebrae, initial encounter (principal); M96.0 Pseudarthrosis after fusion or arthrodesis; Y79.8 Miscellaneous orthopedic devices associated with adverse incidents, not elsewhere classified; Z88.2 Allergy status to sulfonamides; Z88.8 Allergy status to other drugs, medicaments and biological substances; Z91.041 Radiographic dye allergy status; Z79.891 Long term (current) use of opiate analgesic; E03.9 Hypothyroidism, unspecified; F41.1 Generalized anxiety disorder; I25.10 Atherosclerotic heart disease of native coronary artery without angina pectoris; I11.0 Hypertensive heart disease with heart failure; I50.9 Heart failure, unspecified; G89.29 Other chronic pain; M54.42 Lumbago with sciatica, left side; M54.41 Lumbago with sciatica, right side; K59.01 Slow transit constipation; M79.7 Fibromyalgia; K21.9 Gastro-esophageal reflux disease without esophagitis; E78.2 Mixed hyperlipidemia; F17.200 Nicotine dependence, unspecified, uncomplicated; G62.9 Polyneuropathy, unspecified
CPT/HCPCS: 36415; 51702; 72100; 76000; 76700; 80048; 85014; 85018; 85025; 86850; 86900; 86920; 93005; 94760; 97116; 97161; 97530; 99214; C1713 ×2; J0131; J0690; J1100; J1170; J1644; J1885; J2250; J2270; J2370; J2405; J2704; J3010; J3370; J3490; J7030; J7040; J7120; P9016; P9047

== ENCOUNTER 2022-08-26 10:42 | Emergency (ER) | payer MEDICARE, MEDICAID, SELFPAY ==
[2022-08-26 10:43] VITALS: BP 97/62; PULSE 77; RESP 16; TEMP 36.6; O2SAT 95; BMI 21.6
--- NOTE | 2022-08-26 12:11 | W.ED.ABDPA2 ---
HPI - Abdominal Pain General: Chief Complaint: Abdominal Pain Stated Complaint: constipation, postbacksurg Time Seen by Provider: 08/26/22 10:56 History of Present Illness: 62-year-old female presents emergency room with complaint of abdominal pain and constipation. She had a large revision of lumbar thoracic fixation about 2 weeks ago she stopped taking her stool softener since then has been using large amount of narcotics and has not had a bowel movement in nearly a week. She denies any fever sweats chills she has been nauseous but not had any vomiting. She previously had taken Linzess and a stool softener stopped at the time of surgery and now is having problems. MD elicited complaint: abdominal pain Pertinent past history: constipation and other (Recent back surgery with increased use of narcotics) Onset (ago): week(s) (1) Location: Diffuse Severity: moderate Quality: cramping Radiation: none Migration to: no migration Exacerbating factors: nothing Relieving factors: nothing Associated Symptoms: Reports bloating, change in bowel habits, constipation and GI cramping; Denies anorexia, belching, change in stool character, chills, coffee ground emesis, diarrhea, dyspepsia, dysuria, excessive flatus, fever(s), heartburn, hematochezia, hematuria, hematemesis, fecal incontinence, loose stools, melena, nausea, poor appetite, syncope and vomiting Review of Systems Const: Denies: fever(s), chills, fatigue or malaise ENMT: Denies: throat pain, ear or mastoid pain, nasal discharge or nasal congestion Card: Denies: syncope Resp: Denies: dyspnea, productive cough or non-productive cough GI: Reports: abdominal pain, constipation, bloating, GI cramping and change in bowel habits; Denies: nausea, vomiting, hematemesis, coffee ground emesis, heartburn, diarrhea, belching, excessive flatus, fecal incontinence, change in stool character, hematochezia or melena : Denies: dysuria, urinary frequency, urinary urgency or hematuria Skin/Breast: Denies: rash or pruritus PFS ED PFSH: Medical History Adult onset hypothyroidism Anxiety, generalized CAD (coronary artery disease) CHF (congestive heart failure), NYHA class III Chronic bilateral low back pain with bilateral sciatica Constipation, slow transit Essential (primary) hypertension Fibromyalgia muscle pain 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 Gastric reflux Hypotension, unspecified Mixed hyperlipidemia Neuropathic pain of both legs Osteopenia of multiple sites Vitamin B12 deficiency Vitamin D deficiency Surgical History History of back surgery History of cholecystectomy History of hysterectomy History of tonsillectomy Family History Other Arthritis Coronary artery disease involving [place] coronary artery of [place] heart with unstable angina pectoris Diabetes Hypertension Thyroid condition Social History Smoking and tobacco status: current every day smoker Second hand smoke exposure: Yes Smoking risk assessment/counseling performed?: Yes Alcohol intake: never Desire information about alcohol rehabilitation?: No Counseling given: No Desire information about substance/drug rehabilitation?: No Counseling given: No Adopted: No Caregiver/support person: Yes Lives independently: No Household members: family Housing: House Marital status: service: No Current occupational status: disabled History of recent travel: No Current gender identity: Female Physical Exam Const: COMMON NORMALS: no acute distress GENERAL APPEARANCE: cooperative and comfortable ORIENTATION/CONSCIOUSNESS: Yes awake, Yes oriented to person, Yes oriented to place and Yes oriented to time HENMT: COMMON NORMALS: normocephalic, atraumatic and hearing grossly normal bilaterally HEAD & SCALP: normocephalic and atraumatic Resp: COMMON NORMALS: normal respiratory effort, No retractions, No use of accessory muscles and clear to auscultation bilaterally AUSCULTATION: clear to auscultation bilaterally Cardio: COMMON NORMALS: regular rate, regular rhythm and No murmurs present (Cardio) RATE: regular rate RHYTHM: regular rhythm GI: COMMON NORMALS: Soft to palpation and No hepatosplenomegaly present AUSCULTATION: Yes normoactive bowel sounds PALPATION: Yes Soft to palpation, No Tenderness to palpation present (GI), No Guarding due to palpation present (GI) and Yes No hepatosplenomegaly present Extremity: COMMON NORMALS: normal to inspection, capillary refill normal, no clubbing, cyanosis or edema, no calf tenderness and no pedal edema Neuro: SENSORIUM/ORIENTATION: Yes oriented to person, Yes oriented to place and Yes oriented to time Skin: COMMON NORMALS: no rashes or lesions noted GENERAL SKIN EXAM: no rashes or lesions noted Course Vital Signs: Vital signs: Vital Signs Temperature 97.8 F 08/26/22 10:43 Pulse Rate 77 08/26/22 10:43 Respiratory Rate 16 08/26/22 10:43 Blood Pressure 97/62 08/26/22 10:43 Pulse Oximetry 95 08/26/22 10:43 Oxygen Delivery Me thod 08/26/22 10:43 MDM - Abdominal Pain Medical Decision Making Exam unremarkable patient has good bowel sounds. Wanted to do a KUB and some basic labs to make sure no other ongoing issues patient declined both the x-ray and the lab work. States she would not want to do the x-ray because it was uncomfortable. She is expressing wish to go home because she was having a lot of pain. Offered her multiple times to give pain medications to allow her to complete the examination she refused with the exception of ketorolac and still did not want to have any further lab or x-ray done. On exam there is no evidence of small bowel obstruction. At this point the best we can do for his however use lactulose every 2 hours so she is desired result start MiraLAX and/or Senokot on a scheduled basis to prevent further constipation is likely she will continue to need narcotic pain medications for control postop pain. Medical Records I reviewed the patient's medical records. Lab Data I reviewed the patient's lab results. Discharge Plan Discharge Patient Disposition: Home Clinical Impression: Constipation, 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 Condition: Stable Prescriptions: New lactulose 10 gram/15 mL (15 mL) solution 20 g PO Q2H 1 Days Qty: 360 0RF Rx Instructions: until desired laxative effect No Action (DME) Duoderm See Rx Instructions .Route .MEDSUPPLY Qty: 10 0RF Rx Instructions: As directed baclofen 10 mg tablet See Rx Instructions .ROUTE .COMPLEX Qty: 120 2RF Rx Instructions: 20mg po qam, 10mg @15:00,10mg @22:00; calcium carbonate-vitamin D3 [Os-Alejo 500 + D3] 500 mg-5 mcg (200 unit) tablet 1 tab PO TID Qty: 60 2RF gabapentin 800 mg tablet 800 mg PO TID Qty: 90 2RF Linzess 145 mcg capsule 145 mcg PO BEDTIME Qty: 30 2RF levothyroxine 50 mcg tablet 50 mcg PO DAILY@1500 Qty: 30 2RF paroxetine HCl 30 mg tablet 30 mg PO DAILY@0800 Qty: 30 2RF (DME) BD Luer-Rae Syringe 3 mL 25 gauge x 1 syringe See Rx Instructions .ROUTE .MEDSUPPLY Qty: 5 2RF Hold Instructions: Doctor's Order Rx Instructions: one every 3 weeks xwrkusfuka-xieefgg-zvpdskdu 50-325-40 mg capsule 1 cap PO TID Qty: 90 2RF Hold Instructions: Planning surgery (DME) E0748 Bone Growth Stimulator See Rx Instructions .Route .MEDSUPPLY Qty: 1 0RF Rx Instructions: As directed carvedilol 12.5 mg tablet 12.5 mg PO QAM potassium gluconate 595 mg (99 mg) Tablet 595 mg PO TID@08,, nifedipine 30 mg tablet extended release 24hr 30 mg PO DAILY glycopyrrolate 1 mg tablet 1 mg PO BID buspirone 5 mg tablet 5 mg PO TID PRN (Reason: Anxiety) hydrocodone-acetaminophen 5-325 mg tablet 1 tab PO BEDTIME Vitamin B-12 1,000 mcg Tablet 1,000 mcg PO DAILY fenofibrate micronized 134 mg capsule 134 mg PO DAILY@15 ergocalciferol (vitamin D2) 1,250 mcg (50,000 unit) capsule 50,000 unit PO Q7D Rx Instructions: on thursday hydrocodone-acetaminophen 5-325 mg tablet 1 - 2 tab PO .Q4-6H Qty: 40 0RF cyclobenzaprine 10 mg tablet 10 mg PO TID PRN (Reason: muscle spasm) 30 Days Qty: 90 0RF Discharge Orders: Discharge ED (Routine); Ordered 08/26/22 Ordered By: Juanacrlos Robles Referrals: Hitesh Pal, [facility] [Primary Care Provider] - Discharge Diet: Usual diet and Start new tube feeds as directed Discharge Activity: Resume usual activity Patient Instructions: Opioid Safety, Pain Management Activity Restrictions/Additional Instructions: Use lactulose every 2 hours until desired result achieved. Recommend starting stool softener or lactulose on a scheduled basis to prevent further constipation. Follow-up with your primary care doctor. Coding Level of Care Code ED Lawnmower Mechanic for Antonia Medina
[2022-08-26] MEDS: ketorolac 30 mg/mL INJ IM (12:58)
[2022-08-26 13:41] VITALS: BP 133/76; PULSE 75; RESP 18; O2SAT 97
== END 2022-08-26 13:43 | disposition home or self-care (01) ==
PROVIDERS: Emergency Provider Family Medicine; PCP Nurse Practitioner
DX: K59.00 Constipation, unspecified (principal); Z96.89 Presence of other specified functional implants; I25.10 Atherosclerotic heart disease of native coronary artery without angina pectoris; I11.0 Hypertensive heart disease with heart failure; I50.9 Heart failure, unspecified; E78.2 Mixed hyperlipidemia; F17.210 Nicotine dependence, cigarettes, uncomplicated
CPT/HCPCS: 96372; 99284; J1885

== ENCOUNTER → 2022-09-02 11:03 | Outpatient (BNVA) | payer MEDICARE, MEDICAID, SELFPAY | PROVIDERS: PCP Nurse Practitioner; Visit Provider Orthopaedic Surgery | DX: Z47.89 Encounter for other orthopedic aftercare (principal); Z98.1 Arthrodesis status | CPT/HCPCS: 72100; 99024 ==

== ENCOUNTER 2022-09-11 08:51 | Outpatient (CLI) | payer MEDICARE, MEDICAID, SELFPAY ==
--- NOTE | 2022-09-11 08:45 | MR_ITS ---
WS: [id number] MRI NECK without CONTRAST. COMPARISON: None History: Right-sided pressure. Pain in jaw. Multiplanar, multisequence imaging is performed without contrast. No signal abnormality within the soft tissues of the neck. Without contrast the soft tissues at the t ongue base and through the larynx are normal. There is no signal abnormality or mass identified. No a denopathy along the cervical chains. Increase in thoracic kyphosis. Central canal stenosis is at least moderate at C4-5, C5-6 and C6-7 due to a combination of facet disease, osteophytes and disc disease. There is encroachment into the cent ral canal. Visualized skull base is negative. MR/[place] [id number] IMPRESSION: 1. Negative unenhanced MRI neck. No abnormality noted at the tongue base or th rough the larynx. 2. No adenopathy. 3. At least moderate central canal stenosis at C4-5, C5-6 and C6-7. These find ings were previously described on an MRI cervical spine of 12/04/2021.
== END 2022-09-11 08:52 | disposition home or self-care (01) ==
LOC: RAD 08:52
PROVIDERS: PCP Nurse Practitioner; Visit Provider Nurse Practitioner
DX: M48.02 Spinal stenosis, cervical region (principal)
CPT/HCPCS: 70336

== ENCOUNTER → 2022-09-30 11:22 | Outpatient (BNVA) | payer MEDICARE, MEDICAID, SELFPAY | PROVIDERS: PCP Nurse Practitioner; Visit Provider Orthopaedic Surgery | DX: Z47.89 Encounter for other orthopedic aftercare (principal); Z98.1 Arthrodesis status | CPT/HCPCS: 72070; 72100; 99024 ==

== ENCOUNTER 2022-10-16 13:43 | Inpatient (IN) | payer MEDICARE, MEDICAID, SELFPAY ==
[2022-10-16] VITALS (15 sets, daily range): BP systolic 95–134; BP diastolic 61–88; PULSE 75; RESP 16–20; TEMP 36.4–36.6; O2SAT 90–97; BMI 24.3
--- NOTE | 2022-10-16 13:51 | W.ED.AMS ---
HPI - Altered Mental Status General: Chief Complaint: Altered Mental Status Stated Complaint: AMS Time Seen by Provider: 10/16/22 13:51 Limitations: altered mental status History of Present Illness: Ms. Lux is a 62-year-old lady with, per chart review, hypertension hyperlipidemia, hypothyroidism, neuropathy, fibromyalgia presenting to the emergency department due to altered mental status. Last known well is unclear. Patient herself provides very very limited history essentially not answering questions or severely delayed responses. Per EMS report she has had multiple falls over the past few days. History is otherwise limited by patient's mental status Review of Systems General: Reports: ROS unobtainable due to mental status PFSH ED PFSH: Medical History Adult onset hypothyroidism Anxiety, generalized CAD (coronary artery disease) CHF (congestive heart failure), NYHA class III Chronic bilateral low back pain with bilateral sciatica Constipation, slow transit Essential (primary) hypertension Fibromyalgia muscle pain 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 Gastric reflux Hypotension, unspecified Mixed hyperlipidemia Neuropathic pain of both legs Osteopenia of multiple sites Vitamin B12 deficiency Vitamin D deficiency Surgical History History of back surgery History of cholecystectomy History of hysterectomy History of tonsillectomy Family History Other Arthritis Coronary artery disease involving yocha dehe coronary artery of yocha dehe heart with unstable angina pectoris Diabetes Hypertension Thyroid condition Social History Smoking and tobacco status: current every day smoker Second hand smoke exposure: Yes Smoking risk assessment/counseling performed?: Yes Alcohol intake: never Desire information about alcohol rehabilitation?: No Counseling given: No Desire information about substance/drug rehabilitation?: No Counseling given: No Adopted: No Caregiver/support person: Yes Lives independently: No Household members: family Housing: House Marital status: service: No Current occupational status: disabled History of recent travel: No Current gender identity: Female Physical Exam Const: COMMON NORMALS: alert GENERAL APPEARANCE: ill appearing HENMT: COMMON NORMALS: normocephalic and atraumatic HEAD & SCALP: normocephalic and atraumatic THROAT: posterior oropharynx normal Eye: COMMON NORMALS: conjunctivae normal CONJUNCTIVA: Yes conjunctivae normal SCLERA: sclerae normal Neck/C-Spine: COMMON NORMALS: supple and no meningeal signs GENERAL: Yes trachea midline Resp: COMMON NORMALS: clear to auscultation bilaterally EFFORT & INSPECTION: Yes able to speak in complete sentences AUSCULTATION: clear to auscultation bilaterally Cardio: COMMON NORMALS: regular rate and regular rhythm RATE: regular rate RHYTHM: regular rhythm GI: COMMON NORMALS: Soft to palpation PALPATION: Yes Soft to palpation and Yes Tenderness to palpation present (GI) Extremity: GENERAL: Yes normal exam except as noted and No edema Neuro: COMMON NORMALS: moves all extremities SENSORIUM/ORIENTATION: Yes alert, Yes Orientation impaired and Yes somnolent MENINGEAL SIGNS: Yes no meningeal signs Psych: MEMORY/COGNITION: Yes memory grossly impaired and Yes cognition grossly impaired Course Vital Signs: Vital signs: Vital Signs Temperature 97.8 F 10/18/22 11:14 Pulse Rate 94 10/18/22 11:14 Respiratory Rate 16 10/18/22 11:14 Blood Pressure 172/95 10/18/22 11:14 Pulse Oximetry 94 10/18/22 11:14 Oxygen Delivery Me thod 10/18/22 11:14 Oxygen Flow Rate 2 10/17/22 07:30 MDM - Altered Mental Status Medical Decision Making 62-year-old lady presenting to the emergency room with altered mental status. No gross focal neurologic deficits though exam is limited as the patient opens her eyes but does not meaningfully follow commands. EKG shows sinus rhythm with no STEMI. Labs with no leukocytosis, normal hemoglobin and platelet count. Minimal hypoxemia on ABG. Renal panel with some evidence of dehydration with JUAN MIGUEL. Delta troponin negative. No UTI. UDS positive for barbiturates likely secondary to headache medication. CT head and cervical spine negative for acute pathology. Additional CT imaging without clear etiology of patient symptoms. During ED course patient treated with IV fluids. Upon reassessment minimal improvement. Exam continues to be nonfocal. Most likely cause of patient symptoms is nonspecific altered mental status. Discussed with hospitalist service who was agreeable to admit patient. Medical Records I reviewed the patient's medical records. Lab Data I reviewed the patient's lab results. 10/18/22 04:43 10/18/22 04:43 Radiology Impressions Cervical Spine CT 10/16/22 14:19 IMPRESSION: No acute findings. Head CT 10/16/22 14:19 IMPRESSION: No acute intracranial abnormality. Chest/Abdomen/Pelvis CT 10/16/22 15:15 IMPRESSION: 1. Negative for traumatic injury to the chest. 2. Coronary artery atherosclerotic calcifications. 3. Cardiomegaly. 4. Patchy bilateral subsegmental atelectasis versus infiltrate. 5. Emphysematous changes. 6. Surgical hardware in the spine. IMPRESSION: 1. Negative for acute inflammatory process or acute traumatic injury to the abdomen or pelvis 2. Cholecystectomy. 3. Constipation. 4. Surgical hardware in the spine. Carotid Doppler Study 10/17/22 10:31 IMPRESSION: No carotid arterial stenosis. REFERENCES: SRU CRITERIA. The degree of internal carotid artery stenosis is based on criteria defined by the Society of Radiologists in Ultrasound (SRU). Normal is no stenosis. Mild is less than 50% stenosis. Moderate is 50-69% stenosis. Severe is greater than 69% stenosis to near occlusion. Near occlusion is a markedly narrowed lumen. Total occlusion is no detectable patent lumen. Head MRI 10/17/22 10:36 IMPRESSION: No acute intracranial abnormality demonstrated. Laboratory Results WBC 7.7 10^3/uL (4.0-10.0) 10/16/22 15:20 RBC 4.85 10^6/uL (4.1-5.3) 10/16/22 15:20 Hgb 12.9 g/dL (11.5-15.3) 10/16/22 15:20 Hct 43.5 % (37.0-47.0) 10/16/22 15:20 MCV 89.7 fl (81-99) 10/16/22 15:20 MCH 26.6 pg (28.0-34.0) L 10/16/22 15:20 MCHC 29.7 g/dL (30.0-36.0) L 10/16/22 15:20 RDW 16.0 % (12.1-15.1) H 10/16/22 15:20 Plt Count 214 10^3/cmm (130-400) 10/16/22 15:20 MPV 11.5 fL (7.4-10.4) H 10/16/22 15:20 Neut % (Auto) 75.4 % 10/16/22 15:20 Lymph % (Auto) 14.2 % 10/16/22 15:20 [place] % (Auto) 6.1 % 10/16/22 15:20 Eos % (Auto) 3.2 % 10/16/22 15:20 Baso % (Auto) 0.3 % 10/16/22 15:20 Neut # (Auto) 5.81 10^3/uL (1.8-7.7) 10/16/22 15:20 Lymph # (Auto) 1.1 10^3/uL (0.8-4.8) 10/16/22 15:20 [place] # (Auto) 0.5 10^3/uL (0.2-0.9) 10/16/22 15:20 Eos # (Auto) 0.3 10^3/uL (0.0-0.8) 10/16/22 15:20 Baso # (Auto) 0.0 10^3/uL (0.0-0.1) 10/16/22 15:20 Nucleated RBC % (auto) 0 % 10/16/22 15:20 Nucleated RBCs # 0.0 /100WBC 10/16/22 15:20 PT 13.00 SECONDS (12.1-14.9) 10/16/22 15:20 INR 0.95 (0.8-1.2) 10/16/22 15:20 APTT 41.8 SECONDS (23.9-36.7) H 10/16/22 15:20 Specimen Type Arterial 10/16/22 14:31 Sample Site Radial, left 10/16/22 14:31 ABG pH 7.33 (7.35-7.45) L 10/16/22 14:31 ABG pCO2 44.5 mmHg (35-45) 10/16/22 14:31 ABG pO2 70.0 mmHg (80.0-100.0) L 10/16/22 14:31 ABG HCO3 23.4 mmol/L (22-26) 10/16/22 14:31 ABG O2 Saturation 93.6 10/16/22 14:31 ABG Base Excess -2.6 mmol/L (-2.0-2.0) L 10/16/22 14:31 Yuriy Test Pos 10/16/22 14:31 A-a O2 Gradient Not Reportable 10/16/22 14:31 Hematocrit 38.8 % (37-47) 10/16/22 14:31 Hgb O2 Saturation 89.9 % (95-100) L 10/16/22 14:31 Carboxyhemoglobin 3.1 %THgb (0.4-20.1) 10/16/22 14:31 Methemoglobin 0.8 % (0.4-1.5) 10/16/22 14:31 Total Hemoglobin 12.7 g/dL (12-16) 10/16/22 14:31 Sodium 139.0 mmol/L (131-143) 10/16/22 14:31 Potassium 4.5 mmol/L (3.5-5.0) 10/16/22 14:31 Glucose 99.0 mg/dL (70-115) 10/16/22 14:31 Ionized Calcium 1.2 mmol/L (1.1-1.4) 10/16/22 14:31 O2 Delivery Device Nc 10/16/22 14:31 FiO2 2.0 % 10/16/22 14:31 Research Compliance Specialist ID [email or web address] 10/16/22 14:31 Sodium 139 mmol/L (136-145) 10/16/22 15:20 Potassium 5.2 mmol/L (3.5-5.1) H 10/16/22 15:20 Chloride 103 mmol/L (98-107) 10/16/22 15:20 Carbon Dioxide 25 mmol/L (22-29) 10/16/22 15:20 Anion Gap 16.2 (5-19) 10/16/22 15:20 BUN 68 mg/dL (8-23) H 10/16/22 15:20 Creatinine 1.7 mg/dL (0.5-0.9) H 10/16/22 15:20 GFR Calculation 30.6 mL/min (90-130) L 10/16/22 15:20 Glucose 97 mg/dL (65-115) 10/16/22 15:20 Calculated Osmolality 308 mOsm/kg (285-295) H 10/16/22 15:20 Lactic Acid 1.0 mmol/L (0.5-2.2) 10/16/22 15:20 Calcium 8.7 mg/dL (8.5-10.5) 10/16/22 15:20 Total Bilirubin 0.2 mg/dL (0.15-1.2) 10/16/22 15:20 AST 23 U/L (0-32) 10/16/22 15:20 ALT 10 U/L (0-33) 10/16/22 15:20 Alkaline Phosphatase 94 U/L (35-105) 10/16/22 15:20 Troponin T Baseline 47 ng/L (0-10) H 10/16/22 15:20 Troponin T 120 Minute 41.51 ng/L (0-10) H 10/16/22 17:11 Delta Troponin T -5.49 ABS# (0-10) L 10/16/22 17:11 Total Protein 6.9 g/dL (6.6-8.7) 10/16/22 15:20 Albumin 3.4 g/dL (3.5-5.2) L 10/16/22 15:20 Globulin 3.5 g/dL (1.3-4.6) 10/16/22 15:20 TSH 0.69 uIU/mL (0.27-4.20) 10/16/22 15:20 Urine Color Yellow (Yellow) 10/16/22 16:30 Urine Appearance Clear (CLEAR) 10/16/22 16:30 Urine pH 5 (5-7) 10/16/22 16:30 Ur Specific [place] 1.020 (1.005-1.030) 10/16/22 16:30 Urine Protein Trace (Negative) 10/16/22 16:30 Urine Glucose (UA) Norm (Normal) 10/16/22 16:30 Urine Ketones 1+ (Negative) H 10/16/22 16:30 Urine Blood Neg (Negative) 10/16/22 16:30 Urine Nitrate Negative (Negative) 10/16/22 16:30 Urine Bilirubin 1+ (Negative) H 10/16/22 16:30 Urine Urobilinogen Neg mg/dL (Negative) 10/16/22 16:30 Ur Leukocyte Esterase Negative (Negative) 10/16/22 16:30 Urine RBC None /hpf (0-2) 10/16/22 16:30 Urine WBC 0-4 /hpf (0-5) H 10/16/22 16:30 Ur Squamous Epith Cells 0-4 /hpf (0-5) H 10/16/22 16:30 Amorphous Sediment 2+ /hpf 10/16/22 16:30 Urine Bacteria None /hpf (NONE) 10/16/22 16:30 Urine Mucus 1+ /hpf 10/16/22 16:30 Salicylates < 0.3 mg/dL (3-10) L 10/16/22 15:20 Urine Opiates Screen Negative ng/mL (Negative) 10/16/22 16:30 Acetaminophen < 5.0 ug/mL (10-30) L 10/16/22 15:20 Ur Barbiturates Screen Positive ng/mL (Negative) H 10/16/22 16:30 Ur Phencyclidine Scrn Negative ng/mL (Negative) 10/16/22 16:30 Ur Amphetamines Screen Negative ng/mL (Negative) 10/16/22 16:30 U Benzodiazepines Scrn Negative ng/mL (Negative) 10/16/22 16:30 Urine Cocaine Screen Negative ng/mL (Negative) 10/16/22 16:30 U Marijuana (THC) Screen Negative ng/mL (Negative) 10/16/22 16:30 Ethyl Alcohol < 10 mg/dL (0-10) 10/16/22 15:20 Critical Care Time Critical Care Time: Critical Care Time: Yes Total Critical Care Time: 35 Attestation: Due to a high probability of clinically significant, possibly life threatening deterioration, the patient required my highest level of attention and preparedness to intervene emergently and I personally spent this critical care time directly and personally managing the patient. This critical care time included obtaining a history; examining the patient; pulse oximetry; ordering and review of laboratory and imaging studies; arranging urgent treatment with development of a management plan; evaluation of patient's response to treatment; frequent reassessment; and, discussions with other providers as applicable. It was exclusive of separately billable procedures. Primary system involved is DYNAMOMETER TUNER Discharge Plan Discharge Patient Disposition: Placed in Observation Admit Provider: Nj Mcintyre Clinical Impression: Altered mental status Coding Level of Care Code ED Bevel Gear Generator Operator for Antonia Medina
--- NOTE | 2022-10-16 14:17 | ECG_ITS ---
[facility] Test Date: 2022-10-16 Pat Name: Viola Ennis Department: Room: Gender: Female Rn Ent: : 1960 Requested By: Josef Sewell Order Number: [id number] Duke MD: Sumanth Purcell M.D. Measurements Intervals [place] Rate: 70 P: 54 [place]: 153 QRS: 3 QRSD: 85 T: 19 QT: 406 QTc: 439 Interpretive Statements SINUS RHYTHM Compared to ECG 08/14/2022 11:28:59 No significant changes Electronically Signed On 10-17-2022 7:53:19 TRIAGE REGISTER NURSE by Sumanth Purcell M.D. [id number]
--- NOTE | 2022-10-16 14:19 | CTR_ITS ---
PROCEDURE INFORMATION: Exam: CT Cervical Spine Without Contrast Exam date and time: 10/16/2022 3:34 PM Age: 62 years old Clinical indication: Injury or trauma; Fall; Weakness; Blunt trauma; Additional info: AMS, falls TECHNIQUE: Imaging protocol: Computed tomography of the cervical spine without contrast. Radiation optimization: All CT scans at this facility use at least one of these dose optimization techniques: automated exposure control; mA and/or kV adjustment per patient size (includes targeted exams where dose is matched to clinical indication); or iterative reconstruction. COMPARISON: MR cervical spin wo con* [id number] 12/04/2021 2:37 PM RADIATION DOSE METRICS: Total DLP (mGy-cm): 192.47 FINDINGS: Bones/joints: No acute fracture. Normal alignment. No significant disc protrusion. No severe spinal canal stenosis. Lungs: Emphysematous changes at the lung apices. Soft tissues: Unremarkable. CT/CT cervical spin wo con* [id number] IMPRESSION: No acute findings.
--- NOTE | 2022-10-16 14:19 | CTR_ITS ---
PROCEDURE INFORMATION: Exam: CT Head Without Contrast Exam date and time: 10/16/2022 3:30 PM Age: 62 years old Clinical indication: Injury or trauma; Altered mental status/memory loss; Additional info: AMS, falls TECHNIQUE: Imaging protocol: Computed tomography of the head without contrast. COMPARISON: MR head wo con* [id number] 08/04/2022 12:21 PM RADIATION DOSE METRICS: Total DLP (mGy-cm): 1133.08 FINDINGS: Brain: No hemorrhage. No edema. Mild diffuse cerebral atrophy and sequela of chronic small vessel ischemic disease. No mass effect. Cerebral ventricles: No ventriculomegaly. Paranasal sinuses: Visualized sinuses are unremarkable. No fluid levels. Mastoid air cells: Visualized mastoid air cells are well aerated. Bones/joints: Unremarkable. No acute fracture. Soft tissues: Unremarkable. CT/CT head wo con* [id number] IMPRESSION: No acute intracranial abnormality.
[2022-10-16 14:45] LABS: ABG PCO2 44.5 mmHg (35-45); ABG PH Result 7.33 (7.35-7.45); Arterial Blood Gas Hematocrit 38.8 % (37-47); Base Excess ABG -2.6 mmol/L (-2.0-2.0); Blood Gas Allen Test Pos; Blood Gas Sample Site Radial, left; Blood Gas Sample Type Arterial; Carboxyhemoglobin 3.1 %THgb (0.4-20.1); HCO3 ABG 23.4 mmol/L (22-26); HGB O2 Sat 89.9 % (95-100); Ionized Calcium Level - ABG 1.2 mmol/L (1.1-1.4); Methemoglobin 0.8 % (0.4-1.5); Oxygen Saturation ABG 93.6; Potassium Level - ABG 4.5 mmol/L (3.5-5.0); Total Hemoglobin 12.7 g/dL (12-16)
--- NOTE | 2022-10-16 15:03 | PC.PHAR ---
PT UNABLE TO VERIFY MEDICATIONS- VERIFIED USING MEDICATIONS IN ROOM BROUGHT IN WITH EMS ALL CURRENT FILLS ON BOTTLES
--- NOTE | 2022-10-16 15:15 | CTR_ITS ---
PROCEDURE INFORMATION: Exam: CT Chest Without Contrast; Diagnostic Exam date and time: 10/16/2022 3:39 PM Age: 62 years old Clinical indication: Abdominal tenderness; Shortness of breath; Prior surgery; Surgery type: Gb, hyst, back, ; additional info: AMS, falls, abd pain TECHNIQUE: Imaging protocol: Diagnostic computed tomography of the chest without contrast. Radiation optimization: All CT scans at this facility use at least one of these dose optimization techniques: automated exposure control; mA and/or kV adjustment per patient size (includes targeted exams where dose is matched to clinical indication); or iterative reconstruction. COMPARISON: [place] [id number] 12/10/2021 12:29 PM RADIATION DOSE METRICS: Total DLP (mGy-cm): 1019.97 FINDINGS: Lungs: Patchy bilateral subsegmental atelectasis versus infiltrate. Emphysematous changes. Pleural spaces: Unremarkable. No pneumothorax. No pleural effusion. Heart: Cardiomegaly. Coronary arteries: Coronary artery atherosclerotic calcifications. Lymph nodes: Unremarkable. No enlarged lymph nodes. Vasculature: Unremarkable. No aortic aneurysm. Bones/joints: Surgical hardware in the spine. Soft tissues: Unremarkable. PROCEDURE INFORMATION: Exam: CT Abdomen And Pelvis Without Contrast Exam date and time: 10/16/2022 3:39 PM Age: 62 years old Clinical indication: Abdominal tenderness; Shortness of breath; Prior surgery; Surgery type: Gb, hyst, back, ; additional info: AMS, falls, abd pain TECHNIQUE: Imaging protocol: Computed tomography of the abdomen and pelvis without contrast. Radiation optimization: All CT scans at this facility use at least one of these dose optimization techniques: automated exposure control; mA and/or kV adjustment per patient size (includes targeted exams where dose is matched to clinical indication); or iterative reconstruction. COMPARISON: CT pelvis wo con [id number] 03/19/2022 11:28 AM RADIATION DOSE METRICS: Total DLP (mGy-cm): 1019.97 FINDINGS: Liver: Normal. No mass. Gallbladder and bile ducts: Cholecystectomy. Pancreas: Normal. No ductal dilation. Spleen: Normal. No splenomegaly. Adrenal glands: Normal. No mass. Kidneys and ureters: Normal. No hydronephrosis. Stomach and bowel: Constipation. Appendix: No evidence of appendicitis. Intraperitoneal space: Unremarkable. No free air. No significant fluid collection. Vasculature: Unremarkable. No abdominal aortic aneurysm. Lymph nodes: Unremarkable. No enlarged lymph nodes. Urinary bladder: Unremarkable as visualized. Reproductive: Unremarkable as visualized. Bones/joints: Surgical hardware in the spine. Soft tissues: Unremarkable. CT/[place] [id number] IMPRESSION: 1. Negative for traumatic injury to the chest. 2. Coronary artery atherosclerotic calcifications. 3. Cardiomegaly. 4. Patchy bilateral subsegmental atelectasis versus infiltrate. 5. Emphysematous changes. 6. Surgical hardware in the spine. IMPRESSION: 1. Negative for acute inflammatory process or acute traumatic injury to the abdomen or pelvis 2. Cholecystectomy. 3. Constipation. 4. Surgical hardware in the spine.
[2022-10-16 15:47] LABS: Basophils % 0.3 %; Eosinophils # 0.3 10^3/uL (0.0-0.8); Eosinophils % 3.2 %; Hematocrit 43.5 % (37.0-47.0); Hemoglobin 12.9 g/dL (11.5-15.3); Lymphocytes # 1.1 10^3/uL (0.8-4.8); Lymphocytes % 14.2 %; Mean Corpuscular HGB Conc 29.7 g/dL (30.0-36.0); Mean Corpuscular Hemoglobin 26.6 pg (28.0-34.0); Mean Corpuscular Volume 89.7 fl (81-99); Mean Platelet Volume 11.5 fL (7.4-10.4); Monocytes # 0.5 10^3/uL (0.2-0.9); Monocytes % 6.1 %; Neutrophils # 5.81 10^3/uL (1.8-7.7); Neutrophils % 75.4 %; Nucleated Red Blood Cells % 0 %; Platelet Count 214 10^3/cmm (130-400); Red Blood Count 4.85 10^6/uL (4.1-5.3); White Blood Count 7.7 10^3/uL (4.0-10.0)
[2022-10-16 15:58] LABS: INR 0.95 (0.8-1.2)
[2022-10-16 15:59] LABS: Partial Thromboplastin Time 41.8 SECONDS (23.9-36.7)
[2022-10-16 16:07] LABS: Troponin(5th) Baseline 47 ng/L (0-10)
--- NOTE | 2022-10-16 16:10 | ECG_ITS ---
[facility] Test Date: 2022-10-16 Pat Name: Viola Ennis Department: Room: Gender: Female Nut Sheller: : 1960 Requested By: Josef Sewell Order Number: [id number] Duke MD: Sumanth Purcell M.D. Measurements Intervals [place] Rate: 67 P: -1 [place]: 155 QRS: 51 QRSD: 85 T: 37 QT: 416 QTc: 440 Interpretive Statements SINUS RHYTHM Compared to ECG 10/16/2022 14:17:30 No significant changes Electronically Signed On 10-17-2022 7:51:58 GROUP MARKETING VP by Sumanth Purcell M.D. [id number]
[2022-10-16 16:17] LABS: Alanine Aminotransferase 10 U/L (0-33); Albumin Level 3.4 g/dL (3.5-5.2); Alkaline Phosphatase 94 U/L (35-105); Anion Gap 16.2 (5-19); Aspartate Amino Transferase 23 U/L (0-32); Blood Urea Nitrogen 68 mg/dL (8-23); Calcium 8.7 mg/dL (8.5-10.5); Carbon Dioxide 25 mmol/L (22-29); Chloride 103 mmol/L (98-107); Globulin 3.5 g/dL (1.3-4.6); Glomerular Filtration Rate 30.6 mL/min (90-130); Glucose 97 mg/dL (65-115); Osmolality Calculated 308 mOsm/kg (285-295); Potassium 5.2 mmol/L (3.5-5.1); Sodium 139 mmol/L (136-145); Thyroid Stimulating Hormone 0.69 uIU/mL (0.27-4.20); Total Bilirubin 0.2 mg/dL (0.15-1.2); Total Protein 6.9 g/dL (6.6-8.7)
[2022-10-16 16:20] LABS: Acetaminophen < 5.0 ug/mL (10-30); Alcohol Level < 10 mg/dL (0-10); Salicylate < 0.3 mg/dL (3-10)
[2022-10-16] MEDS: naloxone 0.4 mg/ml SDV 0.1 MG IVP (16:31)
[2022-10-16 16:38] LABS: Add Urine Microscopic? YES; Bilirubin Urine 1+ (Negative); Blood Urine Neg (Negative); Glucose Urine UA Norm (Normal); Ketones Urine 1+ (Negative); Leukocyte Esterase Urine Negative (Negative); Nitrate Urine Negative (Negative); Protein Urine Trace (Negative); Urine Appearance Clear (CLEAR); Urine Color Yellow (Yellow); Urobilinogen Urine Neg (Negative); pH Urine 5 (5-7)
[2022-10-16 16:45] LABS: Amphetamines Screen Urine Negative (Negative); Barbiturates Screen Urine Positive (Negative); Benzodiazepines Screen Urine Negative (Negative); Cocaine Screen Urine Negative (Negative); Opiate Screen Urine Negative (Negative); PCP Screen Urine Negative (Negative); THC Screen Urine Negative (Negative)
[2022-10-16 16:46] LABS: Amorphous Sediment Urine 2+ /hpf; Mucus Urine 1+ /hpf; Squamous Epithelial Cell Urine 0-4 /hpf (0-5); WBC Urine 0-4 /hpf (0-5)
[2022-10-16] MEDS: sodium chloride 0.9% 1,000 ML 999 ML IV (17:11)
--- NOTE | 2022-10-16 17:21 | PM.HP ---
Providers/Chief Complaint Primary Care Provider: OBI [facility]C Chief Complaint: AMS History of Present Illness Viola Ennis is a 62 year old female WITH pmh of hypothyroidism, CAD, CHF , Fibromyalgia , back surgery , was brought in from home with c/o altered mental status history taking has been very limited as the patient is drowsy and is not very participative,per EMS report she was having recurrent fall at home. C.T head without contrast : No acute intracranial abnormality. CT chest abdpel wo: Patchy bilateral subsegmental atelectasis versus infiltrate, C.T -C SPINE : No acute findings. EKG: S/R Pertinent labs have been reviewed. Review of Systems General: Reports: ROS unobtainable due to mental status Medications/Allergies Home Medications Medication Instructions Recorded Confirmed Last Taken Type potassium gluconate 595 mg (99 mg) 595 mg PO TID@08,,03/12/20 10/16/22 08/04/21 History tablet [id number] Bone Growth Stimulator #1 ea 07/26/21 10/16/22 Unknown Rx Duoderm #10 ea 08/06/21 10/16/22 Unknown Rx baclofen 10 mg tablet See Rx Instructions .Route 07/14/22 10/16/22 Unknown Rx .COMPLEX #120 tabs lypertyxmk-thteong-adypkmwa 50 1 cap PO TID Migraine Headache #90 07/14/22 10/16/22 Unknown Rx mg-325 mg-40 mg capsule caps calcium carbonate 500 mg-vitamin 1 tab PO TID #60 tabs 07/14/22 10/16/22 Unknown Rx D3 5 mcg (200 unit) tablet (Os-Alejo 500 + D3) syringe with needle 3 mL 25 gauge #5 ea 07/14/22 10/16/22 Unknown Rx x 1 (BD Luer-Rae Syringe) cyanocobalamin (vitamin B-12) 1,000 mcg PO DAILY 08/21/22 10/16/22 1 Week Ago History 1,000 mcg tablet (Vitamin B-12) ~08/14/22 hydrocodone 5 mg-acetaminophen 325 1 tab PO BEDTIME 08/21/22 10/16/22 Unknown History mg tablet carvedilol 12.5 mg tablet 12.5 mg PO QAM #30 tabs 09/22/22 10/16/22 Unknown Rx glycopyrrolate 1 mg tablet 1 mg PO BID #60 tabs 09/26/22 10/16/22 Unknown Rx buspirone 5 mg tablet 5 mg PO TID PRN Anxiety #90 tabs 10/06/22 10/16/22 Unknown Rx ergocalciferol (vitamin D2) 1,250 50,000 unit PO Q7D #4 caps 10/06/22 10/16/22 Unknown Rx mcg (50,000 unit) capsule fenofibrate micronized 134 mg 134 mg PO DAILY@15 #30 caps 10/06/22 10/16/22 Unknown Rx capsule gabapentin 800 mg tablet 800 mg PO TID #90 tabs 10/06/22 10/16/22 Unknown Rx levothyroxine 50 mcg tablet 50 mcg PO DAILY@1500 #30 tabs 10/06/22 10/16/22 Unknown Rx linaclotide 145 mcg capsule 145 mcg PO BEDTIME #30 caps 10/06/22 10/16/22 Unknown Rx (Linzess) olmesartan 40 mg tablet (Benicar) 40 mg PO DAILY #30 tabs 10/06/22 10/16/22 Unknown Rx paroxetine HCl 30 mg tablet 30 mg PO DAILY@0800 #30 tabs 10/06/22 10/16/22 Unknown Rx oxycodone 5 mg tablet 5 mg PO Q6H PRN severe pain (scale 10/14/22 10/16/22 Unknown Rx score 7-10) 7 days #40 tabs Allergies Allergy/AdvReac Type Severity Reaction Status Date / Time atorvastatin [From Lipitor] Allergy Unknown known Verified 10/16/22 15:05 ezetimibe [From Zetia] Allergy Unknown unknown Verified 10/16/22 15:05 rosuvastatin [From Crestor] Allergy Unknown unknown Verified 10/16/22 15:05 Otousno-TFB-JqN Reductase Allergy Unknown Unknown Verified 10/16/22 15:05 Inhibitor [Wwtffou-Iez-Qmq Reductase Inhibitor] Sulfa (Sulfonamide Allergy Unknown Unknown Verified 10/16/22 15:05 Antibiotics) sumatriptan [From Imitrex] Allergy Unknown known Verified 10/16/22 15:05 IV contrast dye Allergy ALGY-Anaphy Uncoded 10/08/22 22:50 laxis PFSH Acute PFSH: Medical History Adult onset hypothyroidism Anxiety, generalized CAD (coronary artery disease) CHF (congestive heart failure), NYHA class III Chronic bilateral low back pain with bilateral sciatica Constipation, slow transit Essential (primary) hypertension Fibromyalgia muscle pain 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 Gastric reflux Hypotension, unspecified Mixed hyperlipidemia Neuropathic pain of both legs Osteopenia of multiple sites Vitamin B12 deficiency Vitamin D deficiency Surgical History History of back surgery History of cholecystectomy History of hysterectomy History of tonsillectomy Family History Other Arthritis Coronary artery disease involving [place] coronary artery of [place] heart with unstable angina pectoris Diabetes Hypertension Thyroid condition Social History Smoking and tobacco status: current every day smoker Second hand smoke exposure: Yes Smoking risk assessment/counseling performed?: Yes Alcohol intake: never Desire information about alcohol rehabilitation?: No Counseling given: No Desire information about substance/drug rehabilitation?: No Counseling given: No Adopted: No Caregiver/support person: Yes Lives independently: No Household members: family Housing: House Marital status: service: No Current occupational status: disabled History of recent travel: No Current gender identity: Female Vitals/I&O/Wt Last Vital Signs Temp 97.8 F 10/16/22 13:53 Pulse 75 10/16/22 13:53 Resp 16 10/16/22 13:53 BP 102/76 10/16/22 16:15 Pulse Ox 96 10/16/22 16:15 O2 Del Method 10/16/22 13:53 O2 Flow Rate 2 10/16/22 13:53 Weight last 48 hrs Weight 72.575 kg Physical Exam Narrative: Patient is currently responding to her name, says that she stays with her son, is significantly drowsy currently, falls asleep in between questioning. HENMT: COMMON NORMALS: normocephalic and atraumatic HEAD & SCALP: normocephalic and atraumatic Resp: COMMON NORMALS: normal respiratory effort, No retractions, No use of accessory muscles and clear to auscultation bilaterally EFFORT & INSPECTION: Yes symmetric chest movement AUSCULTATION: clear to auscultation bilaterally Cardio: COMMON NORMALS: regular rate, regular rhythm, S1 normal heart sound present, S2 normal heart sound present, No gallops present (Cardio), No murmurs present (Cardio), No rub (Cardio) and Peripheral pulses 2+ throughout RATE: regular rate RHYTHM: regular rhythm HEART SOUNDS: S1 normal heart sound present and S2 normal heart sound present PERIPHERAL PULSES: Peripheral pulses 2+ throughout GI: COMMON NORMALS: Normal to inspection, nondistended, normoactive bowel sounds present, Soft to palpation, non-tender, No hepatosplenomegaly present and no masses AUSCULTATION: Yes normoactive bowel sounds PALPATION: Yes Soft to palpation and Yes No hepatosplenomegaly present RECTAL EXAM: deferred Extremity: COMMON NORMALS: no clubbing, cyanosis or edema and no pedal edema Data 10/16/22 15:20 10/16/22 15:20 Micro: Microbiology 10/16/22 15:20 Blood Culture - Preliminary Blood SPECIMEN COLLECTED 10/16/22 15:24 Blood Culture - Preliminary Blood SPECIMEN COLLECTED A&P Assessment and plan (1) Altered mental status: (2) Acute kidney injury superimposed on CKD: (3) Hyperkalemia: (4) Dehydration: Plan 62 year old female WITH pmh of hypothyroidism, CAD, CHF , Fibromyalgia , back surgery , was brought in from home with c/o altered mental status history taking has been very limited as the patient is drowsy and is not very participative,per EMS report she was having recurrent fall at home. Assessment : AMS Possibly 2/2 to polypharmacy JUAN MIGUEL ON CKD Possible PNA Dehydration Hypothyroidism, CAD HFpEF currently compensated Fibromyalgia Recurrent fall Plan : Follow blood culture Urine Culture Procalcitonin Ammonia TSH ABG :Reviewed Confirm home medications, hold them for now. Empiricaaly will cover with ceftriaxone I.V Hydration Monitor intake/output charting Monitor BMP,avoid nephrotoxics Telemetry monitoring Code Status :Full Code DVT PPX: On Heparin Attestations Medical Necessity Statement*: patient needs to be in for the management of AMS.Anticipated LOS Greater then 2 midnights. Coding Level of Care Code Acute Banquet Supervisor for [facility] Fwd Exam Detailed Diagnoses Altered mental status R41.82 Acute kidney injury superimposed on CKD N17.9; N18.9 Hyperkalemia E87.5 Dehydration E86.0
[2022-10-16 18:00] LABS: Troponin 5 2HR 41.51 ng/L (0-10)
[2022-10-16 18:01] LABS: Troponin 5 2HR Delta -5.49 ABS# (0-10)
[2022-10-16] MEDS: heparin 5,000 unit/mL INJ 1 mL 5000 UNIT SUBCUT (18:12)
[2022-10-16] MEDS: sodium chloride 0.9% 1,000 ML 50 ML IV (20:22)
[2022-10-16] MEDS: cefTRIAXone 1,000 MG in sodium chloride 0.9% (plus) 50 ML 100 MG IV (20:53)
[2022-10-17] VITALS: BP 137/83; PULSE 85; RESP 21; TEMP 37.4; O2SAT 96
[2022-10-17 04:00] VITALS: BP 121/77; PULSE 89; RESP 19; TEMP 36.4; O2SAT 93
[2022-10-17 05:53] LABS: Basophils % 0.2 %; Eosinophils # 0.2 10^3/uL (0.0-0.8); Eosinophils % 3.7 %; Hematocrit 39.9 % (37.0-47.0); Hemoglobin 12.1 g/dL (11.5-15.3); Lymphocytes % 16.9 %; Mean Corpuscular HGB Conc 30.3 g/dL (30.0-36.0); Mean Corpuscular Hemoglobin 26.8 pg (28.0-34.0); Mean Corpuscular Volume 88.5 fl (81-99); Monocytes # 0.5 10^3/uL (0.2-0.9); Monocytes % 7.9 %; Neutrophils # 4.05 10^3/uL (1.8-7.7); Neutrophils % 70.6 %; Nucleated Red Blood Cells % 0 %; Platelet Count 218 10^3/cmm (130-400); Red Blood Count 4.51 10^6/uL (4.1-5.3); Red Cell Distribution Width 15.9 % (12.1-15.1); White Blood Count 5.7 10^3/uL (4.0-10.0)
[2022-10-17] MEDS: heparin 5,000 unit/mL INJ 1 mL 5000 UNIT SUBCUT ×2 (06:03→17:59)
[2022-10-17 06:13] LABS: Ammonia 28 umol/L (11-51)
[2022-10-17 06:30] LABS: Procalcitonin 0.09 ng/mL (0-0.5); Thyroid Stimulating Hormone 0.45 uIU/mL (0.27-4.20)
--- NOTE | 2022-10-17 06:34 | PC.NURSE ---
patient has made tremendous improvement since arriving to floor last evening, patient was only able to say her first name upon arrival, patient is talking in full sentences this am, spoke with her son on the phone.
[2022-10-17 06:41] LABS: Blood Urea Nitrogen 51 mg/dL (8-23); Calcium 8.5 mg/dL (8.5-10.5); Carbon Dioxide 20 mmol/L (22-29); Chloride 103 mmol/L (98-107); Glomerular Filtration Rate 72.9 mL/min (90-130); Glucose 84 mg/dL (65-115); Osmolality Calculated 297 mOsm/kg (285-295); Sodium 137 mmol/L (136-145)
[2022-10-17 06:46] LABS: Anion Gap 18.3 (5-19); Potassium 4.3 mmol/L (3.5-5.1)
[2022-10-17 07:16] LABS: Vitamin B12 1869 pg/mL (232-1245)
[2022-10-17 08:00] VITALS: BP 130/80; PULSE 94; RESP 18; TEMP 36.6; O2SAT 91
--- NOTE | 2022-10-17 10:31 | USR_ITS ---
PROCEDURE INFORMATION: Exam: US Duplex Bilateral Extracranial Arteries, Carotid Arteries Exam date and time: 10/17/2022 11:37 AM Age: 62 years old Clinical indication: Screening exam; Additional info: R/O darnell TECHNIQUE: Imaging protocol: Real-time Duplex ultrasound scan of the bilateral carotid and vertebral arteries combining draper scale, color Doppler and spectral waveform analysis. Bilateral exam. Exam focused on the carotid arteries. COMPARISON: [place] [id number] 01/21/2021 12:52 PM FINDINGS: Right common carotid artery: Unremarkable. No occlusion or stenosis. Waveforms are normal. PSV 106 cm/s Right internal carotid artery: Unremarkable. No occlusion or stenosis. Waveforms are normal. PSV 106 cm/s Right ICA/CCA ratio: A 1.01 Right external carotid artery: No stenosis in the origin. Right vertebral artery: Unremarkable. Antegrade flow. Left common carotid artery: Unremarkable. No occlusion or stenosis. Waveforms are normal. PSV 104 cm/s Left internal carotid artery: Unremarkable. No occlusion or stenosis. Waveforms are normal. PSV 172 cm/s Left ICA/CCA ratio: 1.6 Left external carotid artery: No stenosis in the origin. Left vertebral artery: Unremarkable. Antegrade flow. US/CV carotid duplex BI* [id number] IMPRESSION: No carotid arterial stenosis. REFERENCES: SRU CRITERIA. The degree of internal carotid artery stenosis is based on criteria defined by the Society of Radiologists in Ultrasound (SRU). Normal is no stenosis. Mild is less than 50% stenosis. Moderate is 50-69% stenosis. Severe is greater than 69% stenosis to near occlusion. Near occlusion is a markedly narrowed lumen. Total occlusion is no detectable patent lumen.
--- NOTE | 2022-10-17 10:36 | MRR_ITS ---
PROCEDURE INFORMATION: Exam: MR Head Without Contrast Exam date and time: 10/17/2022 4:42 PM Age: 62 years old Clinical indication: Altered mental status/memory loss; Additional info: R/O stroke, attempted to bring patient for MR, she said she didn't want it done and to TECHNIQUE: Imaging protocol: Magnetic resonance imaging of the head without contrast. COMPARISON: CT head wo con* [id number] 10/16/2022 3:30 PM FINDINGS: Brain: Mild parenchymal volume loss noted. Increased white matter signal on T2/FLAIR images, consistent with chronic microangiopathic white matter disease. No restriction of diffusion demonstrated on DWI images. No evidence of acute infarct. No parenchymal edema identified. No intracranial hemorrhage noted. Cerebral ventricles: Unremarkable. No ventriculomegaly. Bones/joints: Unremarkable. Paranasal sinuses: Mild mucoperiosteal thickening noted in the left ethmoid air cells. No air-fluid levels in the paranasal sinuses. Mastoid air cells: No mastoid effusion. Orbital cavities: No acute abnormality of the orbits demonstrated. Soft tissues: Unremarkable. MR/MR head wo con* [id number] IMPRESSION: No acute intracranial abnormality demonstrated.
[2022-10-17] MEDS: levothyroxine 50 mcg Tablet PO (14:16)
[2022-10-17] MEDS: sodium chloride 0.9% 1,000 ML 50 ML IV (14:17)
[2022-10-17 16:00] VITALS: BP 144/91; PULSE 88; RESP 15; TEMP 36.9; O2SAT 94
--- NOTE | 2022-10-17 17:19 | P.PN_ITS ---
Subjective Subjective: Patient was seen and examined this morning, more alert awake as compared to yesterday, though definitely not at her baseline, at baseline she is very functional, and mentally more competent. Medications: Medication Review Details: Generic Name Dose Route Start Last Admin Trade Name Freq PRN Reason Stop Dose Admin Heparin Sodium (Po rcine) 5,000 unit 10/16/22 17:30 10/17/22 06:03 Heparin 5,000 Un it/Ml Inj 1 Ml SUBCUT 5,000 unit Q12H JOSE ALFREDO Administration Sodium Chloride 1,000 mls @ 50 ml s/hr 10/16/22 17:30 10/17/22 14:17 Sodium Chloride 0.9% IV 50 mls/hr .Q20H JOSE ALFREDO Administration Ceftriaxone Sodium 1,000 mg/ 50 mls @ 100 mls/ hr 10/16/22 20:15 10/17/22 07:58 Sodium Chloride IV Infused Q24H JOSE ALFREDO Infusion Protocol Levothyroxine Sodi um 50 mcg 10/17/22 15:00 10/17/22 14:16 Levothyroxine 50 Mcg Tablet PO 50 mcg DAILY@1500 JOSE ALFREDO Administration Naloxone HCl 0.1 mg 10/16/22 14:05 10/16/22 16:31 Naloxone 0.4 Mg/ Ml Sdv IVP 0.1 mg Q2M PRN Administration RESPIRATORY RATE < 8/MIN Vitals/I&O/Wt Last Vital Signs Temp 98.5 F 10/17/22 16:00 Pulse 88 10/17/22 16:00 Resp 15 10/17/22 16:00 BP 144/91 10/17/22 16:00 Pulse Ox 94 10/17/22 16:00 O2 Del Method 10/17/22 00:00 O2 Flow Rate 2 10/17/22 07:30 10/17/22 10/17/22 10/17/22 06:59 14:59 22:59 Intake Total 0 / 0 945.833 / 945.833 Output Total 150 / 850 Balance -150 / -850 945.833 / 945.833 Weight last 48 hrs Weight 72.575 kg Physical Exam HENMT: COMMON NORMALS: normocephalic and atraumatic HEAD & SCALP: normocephalic and atraumatic Resp: COMMON NORMALS: normal respiratory effort, No retractions, No use of accessory muscles and clear to auscultation bilaterally EFFORT & INSPECTION: Yes symmetric chest movement AUSCULTATION: clear to auscultation bilaterally Cardio: COMMON NORMALS: regular rate, regular rhythm, S1 normal heart sound present, S2 normal heart sound present, No gallops present (Cardio), No murmurs present (Cardio), No rub (Cardio) and Peripheral pulses 2+ throughout RATE: regular rate RHYTHM: regular rhythm HEART SOUNDS: S1 normal heart sound present and S2 normal heart sound present PERIPHERAL PULSES: Peripheral pulses 2+ throughout GI: COMMON NORMALS: Normal to inspection, nondistended, normoactive bowel sounds present, Soft to palpation, non-tender, No hepatosplenomegaly present and no masses AUSCULTATION: Yes normoactive bowel sounds PALPATION: Yes Soft to palpation and Yes No hepatosplenomegaly present RECTAL EXAM: deferred Extremity: COMMON NORMALS: no clubbing, cyanosis or edema and no pedal edema Urinary Catheter Management: Zimmerman: Cath Placed During This Visit: no Data 10/17/22 05:28 10/17/22 05:28 Micro: Microbiology 10/16/22 15:20 Blood Culture - Preliminary Blood NEGATIVE TO DATE 10/16/22 15:24 Blood Culture - Preliminary Blood NEGATIVE TO DATE A&P Assessment and plan (1) Altered mental status: (2) Acute kidney injury superimposed on CKD: (3) Hyperkalemia: (4) Dehydration: Plan 62 year old female WITH pmh of hypothyroidism, CAD, CHF , Fibromyalgia , back surgery , was brought in from home with c/o altered mental status history taking has been very limited as the patient is drowsy and is not very participative,per EMS report she was having recurrent fall at home. Assessment : AMS currently possibly2/2 /JUAN MIGUEL/ dehydration/positive urine barbiturate JUAN MIGUEL ON CKD Possible PNA Dehydration Hypothyroidism CAD HFpEF currently compensated Fibromyalgia Recurrent fall Plan : C.T head without contrast :?No acute intracranial abnormality. CT chest abdpel wo: Patchy bilateral subsegmental atelectasis versus infiltrate, C.T -C SPINE : No acute findings MRI brain without contrast: No acute finding Carotid Doppler: Ammonia normal Follow blood culture Urine Culture Urine barbiturate is positive Vitamin B12 1869 Procalcitonin: 0.09 TSH 0.45 ABG :Reviewed Confirm home medications, hold them for now. Empirically will cover with ceftriaxone I.V Hydration Monitor intake/output charting Monitor BMP,avoid nephrotoxics Telemetry monitoring Orthostatic vital signs check There was detailed discussion with the son: Home medication was reviewed with him, currently she is not on A lot of pain medicine, or other sedative medicines. Will possibly plan to discharge patient on event monitor Physical therapy on board Code Status :Full Code DVT PPX: On Heparin Attestations Medical Necessity Statement*: Patient is in hospital for management altered mental status, recurrent fall. Coding Level of Care Code Acute Cotton Expert for [facility] Diagnoses Altered mental status R41.82 Acute kidney injury superimposed on CKD N17.9; N18.9 Hyperkalemia E87.5 Dehydration E86.0
[2022-10-17] MEDS: cefTRIAXone 1,000 MG in sodium chloride 0.9% (plus) 50 ML 100 MG IV (19:45)
[2022-10-17 20:00] VITALS: BP 161/93; PULSE 86; RESP 17; TEMP 36.8; O2SAT 92
[2022-10-17 23:54] VITALS: BP 152/91; PULSE 89; RESP 17; TEMP 36.5; O2SAT 90
[2022-10-18 04:00] VITALS: BP 173/99; PULSE 89; RESP 17; TEMP 36.6; O2SAT 92
[2022-10-18 05:10] LABS: Basophils % 0.2 %; Hematocrit 39.6 % (37.0-47.0); Hemoglobin 11.9 g/dL (11.5-15.3); Lymphocytes # 0.8 10^3/uL (0.8-4.8); Lymphocytes % 18.3 %; Mean Corpuscular HGB Conc 30.1 g/dL (30.0-36.0); Mean Corpuscular Hemoglobin 26.5 pg (28.0-34.0); Mean Corpuscular Volume 88.2 fl (81-99); Monocytes # 0.3 10^3/uL (0.2-0.9); Monocytes % 8.3 %; Neutrophils # 2.85 10^3/uL (1.8-7.7); Neutrophils % 69.5 %; Nucleated Red Blood Cells % 0 %; Platelet Count 231 10^3/cmm (130-400); Red Blood Count 4.49 10^6/uL (4.1-5.3); Red Cell Distribution Width 15.9 % (12.1-15.1); White Blood Count 4.1 10^3/uL (4.0-10.0)
[2022-10-18 05:29] LABS: Anion Gap 17.2 (5-19); Blood Urea Nitrogen 31 mg/dL (8-23); Calcium 8.6 mg/dL (8.5-10.5); Carbon Dioxide 22 mmol/L (22-29); Chloride 101 mmol/L (98-107); Glomerular Filtration Rate 101.6 mL/min (90-130); Glucose 84 mg/dL (65-115); Osmolality Calculated 288 mOsm/kg (285-295); Potassium 4.2 mmol/L (3.5-5.1); Sodium 136 mmol/L (136-145)
[2022-10-18] MEDS: heparin 5,000 unit/mL INJ 1 mL 5000 UNIT SUBCUT (05:35)
--- NOTE | 2022-10-18 07:09 | PC.NURSE ---
patients blood pressure is elevated,low 90s yesterday diastolic this am 99.asymptomatic. notified, new order recieved.
--- NOTE | 2022-10-18 07:15 | PC.NURSE ---
awaiting pharmacy to verify iv push med (hydralazine), report given to Jany Hale, on coming nurse, verbalizes understanding.
[2022-10-18] MEDS: hyDRALAzine 20 mg/mL INJ 1 mL 10 MG IVP (07:34)
[2022-10-18 07:59] VITALS: BP 173/98; PULSE 94; RESP 16; TEMP 36.4; O2SAT 92
[2022-10-18] MEDS: sodium chloride 0.9% 1,000 ML 50 ML IV (08:42)
[2022-10-18 11:14] VITALS: BP 172/95; PULSE 94; RESP 16; TEMP 36.6; O2SAT 94
--- NOTE | 2022-10-18 15:55 | P.DS_ITS ---
Discharge Providers Date of Admission: 10/16/22 18:32 Date of Discharge: October 18, 2022 Attending Provider at Admission: Nj Mcintyre MD Attending Provider at Discharge: Nj Mcintyre MD Primary Care Provider: TONI Fritz Diagnoses at Discharge Discharge Diagnosis (1) Altered mental status: Status: Acute (2) Acute kidney injury superimposed on CKD: Status: Acute (3) Hyperkalemia: Status: Acute (4) Dehydration: Status: Acute Reason for Visit Reason for Visit: AMS Hospital Course Hospital Course 62 year old female WITH pmh of hypothyroidism, CAD, CHF , Fibromyalgia , back surgery , was brought in from home with c/o altered mental status, as well as for recurrent unwitnessed fall at home, she was admitted for the management of altered mental status likely secondary to JUAN MIGUEL secondary to dehydration positive urine barbiturates, C.T head without contrast :?No acute intracranial abnormality.CT chest abdpel wo: Patchy bilateral subsegmental atelectasis versus infiltrate,C.T -C SPINE : No acute findings,MRI brain without contrast: No acute finding, Carotid Doppler: No flow-limiting stenosis, Ammonia normal, blood culture negative, urine culture negative Vitamin B12 1869, Procalcitonin: 0.09, TSH 0.45, ABG :Reviewed. Orthostatic vital signs were negative, She was empirically on antibiotics which was discontinued on discharge, she was working well with physical therapy, uses walker at home,at the time of discharge, she was at her baseline mentation alert awake oriented holding conver sations, answering appropriately, she wanted to go home, she was discharged on event monitor, to rule out any possible underlying cardiac arrhythmia.She will continue to follow primary care physician as well as cardiology as outpatient. Physical Exam Narrative: Patient is alert awake, she is answering questions appropriately she wants to go home. HENMT: COMMON NORMALS: normocephalic and atraumatic HEAD & SCALP: normocephalic and atraumatic Resp: COMMON NORMALS: normal respiratory effort, No retractions, No use of accessory muscles and clear to auscultation bilaterally EFFORT & INSPECTION: Yes symmetric chest movement AUSCULTATION: clear to auscultation bilaterally Cardio: COMMON NORMALS: regular rate, regular rhythm, S1 normal heart sound present, S2 normal heart sound present, No gallops present (Cardio), No murmurs present (Cardio), No rub (Cardio) and Peripheral pulses 2+ throughout RATE: regular rate RHYTHM: regular rhythm HEART SOUNDS: S1 normal heart sound present and S2 normal heart sound present PERIPHERAL PULSES: Peripheral pulses 2+ throughout GI: COMMON NORMALS: Normal to inspection, nondistended, normoactive bowel sounds present, Soft to palpation, non-tender, No hepatosplenomegaly present and no masses AUSCULTATION: Yes normoactive bowel sounds PALPATION: Yes Soft to palpation and Yes No hepatosplenomegaly present RECTAL EXAM: deferred Extremity: COMMON NORMALS: no clubbing, cyanosis or edema and no pedal edema Urinary Catheter Management: Zimmerman: Cath Placed During This Visit: no Discharge Data Studies Completed and Pending Completed Studies During Hospitalization Category Date Time Status CT cervical spin wo con* [id number] Stat Cat Scan 10/16/22 14:[address] chest abdomen pelvis [[place] [id number] Cat Scan 10/16/22 15:15 Completed ] Stat CT head wo con* [id number] Stat Cat Scan 10/16/22 14:19 Completed MR head wo con* [id number] Routine MRI 10/17/22 10:36 Completed CV carotid duplex BI* [id number] Routine Ultrasound 10/17/22 10:31 Completed Pending at discharge Category Date Time Status ABG FULL [Arterial Blood Gas Full] Stat Lab 10/16/22 14:31 Results Basic Metabolic Panel AM LABS Lab 10/19/22 04:00 Ordered Blood Culture Stat Lab 10/16/22 15:20 Results Complete Blood Count w/Auto AM LABS Lab 10/19/22 04:00 Ordered Urine Culture Routine Lab 10/16/22 16:30 Results Radiology Impressions Cervical Spine CT 10/16/22 14:19 IMPRESSION: No acute findings. Head CT 10/16/22 14:19 IMPRESSION: No acute intracranial abnormality. Chest/Abdomen/Pelvis CT 10/16/22 15:15 IMPRESSION: 1. Negative for traumatic injury to the chest. 2. Coronary artery atherosclerotic calcifications. 3. Cardiomegaly. 4. Patchy bilateral subsegmental atelectasis versus infiltrate. 5. Emphysematous changes. 6. Surgical hardware in the spine. IMPRESSION: 1. Negative for acute inflammatory process or acute traumatic injury to the abdomen or pelvis 2. Cholecystectomy. 3. Constipation. 4. Surgical hardware in the spine. Carotid Doppler Study 10/17/22 10:31 IMPRESSION: No carotid arterial stenosis. REFERENCES: SRU CRITERIA. The degree of internal carotid artery stenosis is based on criteria defined by the Society of Radiologists in Ultrasound (SRU). Normal is no stenosis. Mild is less than 50% stenosis. Moderate is 50-69% stenosis. Severe is greater than 69% stenosis to near occlusion. Near occlusion is a markedly narrowed lumen. Total occlusion is no detectable patent lumen. Head MRI 10/17/22 10:36 IMPRESSION: No acute intracranial abnormality demonstrated. Laboratory Results WBC 4.1 10^3/uL (4.0-10.0) 10/18/22 04:43 RBC 4.49 10^6/uL (4.1-5.3) 10/18/22 04:43 Hgb 11.9 g/dL (11.5-15.3) 10/18/22 04:43 Hct 39.6 % (37.0-47.0) 10/18/22 04:43 MCV 88.2 fl (81-99) 10/18/22 04:43 MCH 26.5 pg (28.0-34.0) L 10/18/22 04:43 MCHC 30.1 g/dL (30.0-36.0) 10/18/22 04:43 RDW 15.9 % (12.1-15.1) H 10/18/22 04:43 Plt Count 231 10^3/cmm (130-400) 10/18/22 04:43 MPV 11.0 fL (7.4-10.4) H 10/18/22 04:43 Neut % (Auto) 69.5 % 10/18/22 04:43 Lymph % (Auto) 18.3 % 10/18/22 04:43 Victoria % (Auto) 8.3 % 10/18/22 04:43 Eos % (Auto) 1.0 % 10/18/22 04:43 Baso % (Auto) 0.2 % 10/18/22 04:43 Neut # (Auto) 2.85 10^3/uL (1.8-7.7) 10/18/22 04:43 Lymph # (Auto) 0.8 10^3/uL (0.8-4.8) 10/18/22 04:43 Victoria # (Auto) 0.3 10^3/uL (0.2-0.9) 10/18/22 04:43 Eos # (Auto) 0.0 10^3/uL (0.0-0.8) 10/18/22 04:43 Baso # (Auto) 0.0 10^3/uL (0.0-0.1) 10/18/22 04:43 Nucleated RBC % (auto) 0 % 10/18/22 04:43 Nucleated RBCs # 0.0 /100WBC 10/18/22 04:43 PT 13.00 SECONDS (12.1-14.9) 10/16/22 15:20 INR 0.95 (0.8-1.2) 10/16/22 15:20 APTT 41.8 SECONDS (23.9-36.7) H 10/16/22 15:20 Specimen Type Arterial 10/16/22 14:31 Sample Site Radial, left 10/16/22 14:31 ABG pH 7.33 (7.35-7.45) L 10/16/22 14:31 ABG pCO2 44.5 mmHg (35-45) 10/16/22 14:31 ABG pO2 70.0 mmHg (80.0-100.0) L 10/16/22 14:31 ABG HCO3 23.4 mmol/L (22-26) 10/16/22 14:31 ABG O2 Saturation 93.6 10/16/22 14:31 ABG Base Excess -2.6 mmol/L (-2.0-2.0) L 10/16/22 14:31 Yuriy Test Pos 10/16/22 14:31 Hematocrit 38.8 % (37-47) 10/16/22 14:31 Hgb O2 Saturation 89.9 % (95-100) L 10/16/22 14:31 Carboxyhemoglobin 3.1 %THgb (0.4-20.1) 10/16/22 14:31 Methemoglobin 0.8 % (0.4-1.5) 10/16/22 14:31 Total Hemoglobin 12.7 g/dL (12-16) 10/16/22 14:31 Sodium 139.0 mmol/L (131-143) 10/16/22 14:31 Potassium 4.5 mmol/L (3.5-5.0) 10/16/22 14:31 Glucose 99.0 mg/dL (70-115) 10/16/22 14:31 Ionized Calcium 1.2 mmol/L (1.1-1.4) 10/16/22 14:31 FiO2 2.0 % 10/16/22 14:31 Juvenile [employer] Specialist ID [email or web address] 10/16/22 14:31 Sodium 136 mmol/L (136-145) 10/18/22 04:43 Potassium 4.2 mmol/L (3.5-5.1) 10/18/22 04:43 Chloride 101 mmol/L (98-107) 10/18/22 04:43 Carbon Dioxide 22 mmol/L (22-29) 10/18/22 04:43 Anion Gap 17.2 (5-19) 10/18/22 04:43 BUN 31 mg/dL (8-23) H 10/18/22 04:43 Creatinine 0.6 mg/dL (0.5-0.9) 10/18/22 04:43 GFR Calculation 101.6 mL/min (90-130) 10/18/22 04:43 Glucose 84 mg/dL (65-115) 10/18/22 04:43 Calculated Osmolality 288 mOsm/kg (285-295) 10/18/22 04:43 Lactic Acid 1.0 mmol/L (0.5-2.2) 10/16/22 15:20 Calcium 8.6 mg/dL (8.5-10.5) 10/18/22 04:43 Total Bilirubin 0.2 mg/dL (0.15-1.2) 10/16/22 15:20 AST 23 U/L (0-32) 10/16/22 15:20 ALT 10 U/L (0-33) 10/16/22 15:20 Alkaline Phosphatase 94 U/L (35-105) 10/16/22 15:20 Ammonia 28 umol/L (11-51) 10/17/22 05:28 Troponin T Baseline 47 ng/L (0-10) H 10/16/22 15:20 Troponin T 120 Minute 41.51 ng/L (0-10) H 10/16/22 17:11 Delta Troponin T -5.49 ABS# (0-10) L 10/16/22 17:11 Troponin T Hi Sens 6Hr 39.10 ng/L (0-10) H 10/16/22 21:48 Troponin T Hi Sens 6Hr Delta -7.90 ng/L (0-12) L 10/16/22 21:48 Total Protein 6.9 g/dL (6.6-8.7) 10/16/22 15:20 Albumin 3.4 g/dL (3.5-5.2) L 10/16/22 15:20 Globulin 3.5 g/dL (1.3-4.6) 10/16/22 15:20 Vitamin B12 1869 pg/mL (232-1245) H 10/17/22 05:28 Procalcitonin 0.09 ng/mL (0-0.5) 10/17/22 05:28 TSH 0.45 uIU/mL (0.27-4.20) 10/17/22 05:28 Urine Color Yellow (Yellow) 10/16/22 16:30 Urine Appearance Clear (CLEAR) 10/16/22 16:30 Urine pH 5 (5-7) 10/16/22 16:30 Ur Specific [place] 1.020 (1.005-1.030) 10/16/22 16:30 Urine Protein Trace (Negative) 10/16/22 16:30 Urine Glucose (UA) Norm (Normal) 10/16/22 16:30 Urine Ketones 1+ (Negative) H 10/16/22 16:30 Urine Blood Neg (Negative) 10/16/22 16:30 Urine Nitrate Negative (Negative) 10/16/22 16:30 Urine Bilirubin 1+ (Negative) H 10/16/22 16:30 Urine Urobilinogen Neg mg/dL (Negative) 10/16/22 16:30 Ur Leukocyte Esterase Negative (Negative) 10/16/22 16:30 Urine RBC None /hpf (0-2) 10/16/22 16:30 Urine WBC 0-4 /hpf (0-5) H 10/16/22 16:30 Ur Squamous Epith Cells 0-4 /hpf (0-5) H 10/16/22 16:30 Amorphous Sediment 2+ /hpf 10/16/22 16:30 Urine Bacteria None /hpf (NONE) 10/16/22 16:30 Urine Mucus 1+ /hpf 10/16/22 16:30 Salicylates < 0.3 mg/dL (3-10) L 10/16/22 15:20 Urine Opiates Screen Negative ng/mL (Negative) 10/16/22 16:30 Acetaminophen < 5.0 ug/mL (10-30) L 10/16/22 15:20 Ur Barbiturates Screen Positive ng/mL (Negative) H 10/16/22 16:30 Ur Phencyclidine Scrn Negative ng/mL (Negative) 10/16/22 16:30 Ur Amphetamines Screen Negative ng/mL (Negative) 10/16/22 16:30 U Benzodiazepines Scrn Negative ng/mL (Negative) 10/16/22 16:30 Urine Cocaine Screen Negative ng/mL (Negative) 10/16/22 16:30 U Marijuana (THC) Screen Negative ng/mL (Negative) 10/16/22 16:30 Ethyl Alcohol < 10 mg/dL (0-10) 10/16/22 15:20 Vitals Last Vital Signs Temp 97.8 F 10/18/22 11:14 Pulse 94 10/18/22 11:14 Resp 16 10/18/22 11:14 BP 172/95 10/18/22 11:14 Pulse Ox 94 10/18/22 11:14 O2 Del Method 10/18/22 11:14 O2 Flow Rate 2 10/17/22 07:30 Discharge Plan Discharge Patient Disposition: Home Condition: Stable Prescriptions: Continued (DME) Duoderm See Rx Instructions .Route .MEDSUPPLY Qty: 10 0RF Rx Instructions: As directed olmesartan [Benicar] 40 mg tablet 40 mg PO DAILY Qty: 30 2RF paroxetine HCl 30 mg tablet 30 mg PO DAILY@0800 Qty: 30 2RF Linzess 145 mcg capsule 145 mcg PO BEDTIME Qty: 30 2RF levothyroxine 50 mcg tablet 50 mcg PO DAILY@1500 Qty: 30 2RF gabapentin 800 mg tablet 800 mg PO TID Qty: 90 2RF fenofibrate micronized 134 mg capsule 134 mg PO DAILY@15 Qty: 30 2RF ergocalciferol (vitamin D2) 1,250 mcg (50,000 unit) capsule 50,000 unit PO Q7D Qty: 4 2RF Rx Instructions: on thursday baclofen 10 mg tablet See Rx Instructions .ROUTE .COMPLEX Qty: 120 2RF Rx Instructions: 20mg po qam, 10mg @15:00,10mg @22:00; calcium carbonate-vitamin D3 [Os-Alejo 500 + D3] 500 mg-5 mcg (200 unit) tablet 1 tab PO TID Qty: 60 2RF (DME) BD Luer-Rae Syringe 3 mL 25 gauge x 1 syringe See Rx Instructions .ROUTE .MEDSUPPLY Qty: 5 2RF Hold Instructions: Doctor's Order Rx Instructions: one every 3 weeks ujjvvtvlnq-xqebrxf-orovryvl 50-325-40 mg capsule 1 cap PO TID Qty: 90 2RF Hold Instructions: Doctor's Order (DME) [id number] Bone Growth Stimulator See Rx Instructions .Route .MEDSUPPLY Qty: 1 0RF Rx Instructions: As directed carvedilol 12.5 mg tablet 12.5 mg PO QAM Qty: 30 0RF Rx Instructions: MUST have follow-up for further refills potassium gluconate 595 mg (99 mg) Tablet 595 mg PO TID@,, hydrocodone-acetaminophen 5-325 mg tablet 1 tab PO BEDTIME cyanocobalamin (vitamin B-12) [Vitamin B-12] 1,000 mcg Tablet 1,000 mcg PO DAILY Held buspirone 5 mg tablet 5 mg PO TID PRN (Reason: Anxiety) Qty: 90 2RF Hold Instructions: Resume on 11/01/22. patient will follow with PCP FOR RESUMPTION Discontinued glycopyrrolate 1 mg tablet 1 mg PO BID Qty: 60 2RF oxycodone 5 mg tablet 5 mg PO Q6H PRN (Reason: severe pain (scale score 7-10)) 7 Days Qty: 40 0RF Discharge Orders: Discharge Order (Routine); Ordered 10/18/22 Ordered By: Nj Mcintyre Other Ambulatory Orders: MCT/Event Monitor 21 Days (Routine) Timeframe: 1 Week Facility: [facility] - Location: Radiology Ordered By: Nj Mcintyre Referrals: Hitesh Pal FNP-C [Primary Care Provider] - 1 week (Please call Thursday to schedule your appointment with Hitesh Pal.) Patient Instructions: Heart Failure (DC), Dehydration (DC), Hyperkalemia (DC), Opioid Safety Discharge Attestations Time Spent in Discharge Care*: less than 30 min Quality Metrics Clinical Quality Measures [ No reported AMI, CVA or VTE this stay] Coding Level of Care Code Acute Chg FW DC note Diagnoses Altered mental status R41.82 Acute kidney injury superimposed on CKD N17.9; N18.9 Hyperkalemia E87.5 Dehydration E86.0
[2022-10-18] MEDS: levothyroxine 50 mcg Tablet PO (16:07)
[2022-10-19 16:46] LABS: Oxygen Device NC
== END 2022-10-18 16:00 | disposition home or self-care (01) | DRG 683 ==
LOC: ER 17:32 → MEDSURG 18:33
PROVIDERS: Admitting Provider Internal Medicine; Emergency Provider Emergency Medicine; PCP Nurse Practitioner; Visit Provider Internal Medicine
DX: N17.9 Acute kidney failure, unspecified (principal); I13.0 Hypertensive heart and chronic kidney disease with heart failure and stage 1 through stage 4 chronic kidney disease, or unspecified chronic kidney disease; I50.32 Chronic diastolic (congestive) heart failure; N18.9 Chronic kidney disease, unspecified; E86.0 Dehydration; E87.5 Hyperkalemia; R41.82 Altered mental status, unspecified; R29.6 Repeated falls; E03.9 Hypothyroidism, unspecified; I25.10 Atherosclerotic heart disease of native coronary artery without angina pectoris; E78.2 Mixed hyperlipidemia; F17.200 Nicotine dependence, unspecified, uncomplicated; Z79.891 Long term (current) use of opiate analgesic
CPT/HCPCS: 36415; 36600; 70450; 70551; 71250; 72125; 74176; 80048; 80051; 80053; 80306; 80307; 81001; 82140; 82330; 82607; 82805; 83605; 84145; 84443; 84484; 85025; 85610; 85730; 87040; 87086; 92523; 92610; 93005; 93880; 96361; 96372; 96374; 97116; 97161; 99285; J0360; J0696; J1644; J2310; J7030

== ENCOUNTER → 2023-01-13 14:30 | Outpatient (BNVA) | payer MEDICARE, MEDICAID, SELFPAY | PROVIDERS: PCP Nurse Practitioner; Visit Provider Orthopaedic Surgery | DX: Z47.89 Encounter for other orthopedic aftercare (principal); Z98.1 Arthrodesis status | CPT/HCPCS: 72070; 72100; 99213 ==

== ENCOUNTER → 2023-02-03 15:14 | Outpatient (BNVA) | payer MEDICARE, MEDICAID, SELFPAY | PROVIDERS: PCP Nurse Practitioner; Visit Provider Physician Assistant | DX: Z48.89 Encounter for other specified surgical aftercare (principal); Z98.1 Arthrodesis status | CPT/HCPCS: 72070; 72100; 99213 ==

== ENCOUNTER → 2023-03-17 15:09 | Outpatient (BNVA) | payer MEDICARE, MEDICAID, SELFPAY | PROVIDERS: PCP Nurse Practitioner; Visit Provider Nurse Practitioner | DX: E03.8 Other specified hypothyroidism (principal); I10 Essential (primary) hypertension | CPT/HCPCS: 80053; 80061; 84443 ==

== ENCOUNTER → 2023-04-16 13:07 | Outpatient (BNVA) | payer MEDICARE, MEDICAID, SELFPAY | PROVIDERS: PCP Nurse Practitioner; Visit Provider Physician Assistant | DX: M43.20 Fusion of spine, site unspecified (principal); M54.42 Lumbago with sciatica, left side; M54.41 Lumbago with sciatica, right side; G89.29 Other chronic pain | CPT/HCPCS: 72072; 72100; 99213 ==

== ENCOUNTER 2023-05-06 13:08 | Outpatient (CLI) | payer MEDICARE, MEDICAID, SELFPAY ==
--- NOTE | 2023-05-06 13:16 | MM_ITS ---
WS: [id number] BILATERAL 3D TOMOSYNTHESIS DIGITAL SCREENING MAMMOGRAPHY WITH CAD CLINICAL INFORMATION: SCREENING HISTORY: Screening mammogram. No current complaints. COMPARISON: 2020 TECHNIQUE: Bilateral CC and MLO views. FINDINGS: Exam done in wheelchair. Scattered fibroglandular densities bilaterally. No suspicious focal mass, asymmetry, calcifications, or architectural distortion. No evidence of malignancy. A few incidental calcifications. Stable ovoid nodule LEFT breast with punctate calcification. MM/[place] [id number] IMPRESSION: BI-RADS: 2-Benign FOLLOW UP: 1 Year Follow-up Recommend return to annual screening mammography.
== END 2023-05-06 13:09 | disposition home or self-care (01) ==
LOC: MOBLMAM 13:10 → RAD 13:25
PROVIDERS: PCP Nurse Practitioner; Visit Provider Nurse Practitioner
DX: Z12.31 Encounter for screening mammogram for malignant neoplasm of breast (principal)
CPT/HCPCS: 77063; 77067

== ENCOUNTER 2023-06-16 13:03 | Outpatient (RCR) | payer MEDICARE, MEDICAID, SELFPAY | END 2023-06-25 23:59 | disposition home or self-care (01) | LOC: SPT 13:03 | PROVIDERS: PCP Orthopaedic Surgery; Visit Provider Physician Assistant | DX: M54.42 Lumbago with sciatica, left side (principal); M54.41 Lumbago with sciatica, right side | CPT/HCPCS: 97110; 97161 ==

== ENCOUNTER 2023-06-26 06:00 | Outpatient (RCR) | payer MEDICARE, SELFPAY | END 2023-07-25 23:59 | disposition home or self-care (01) | LOC: SPT 06:00 | PROVIDERS: PCP Nurse Practitioner; Visit Provider Physician Assistant | DX: M54.42 Lumbago with sciatica, left side (principal); M54.41 Lumbago with sciatica, right side | CPT/HCPCS: 97110 ==

== ENCOUNTER 2023-08-26 09:25 | Emergency (ER) | payer MEDICARE, MEDICAID, SELFPAY ==
[2023-08-26 09:26] VITALS: BP 126/78; PULSE 73; RESP 17; TEMP 36.4; O2SAT 95; BMI 21.6
--- NOTE | 2023-08-26 09:35 | W.ED.NAVMDI ---
HPI - Nausea/Vomiting/Diarrhea General: Chief complaint: Nausea/Vomiting/Diarrhea Stated complaint: NVD Time Seen by Provider: 08/26/23 09:28 Source: patient Mode of arrival: ambulatory Limitations: no limitations History of Present Illness: Patient is a nice 63-year-old female presents to ED today with complaint of nausea, vomiting, diarrhea that has been present over the past week or so. Patient states symptoms initially started with vomiting and she reported multiple episodes of emesis over the first 72 hours. Patient states symptoms then moved more into diarrhea stating she will have approximately 3-4 loose mucousy diarrhea stools in a 24 hour period. She has not noticed any blood in her stools. She states she still feels nauseous and bloated. She has some intermittent abdominal cramping. She gets some relief after belching. Patient states she was scheduled for an ultrasound yesterday as she has had a lot of abdominal bloating and swelling. She states she missed this appointment secondary to feeling ill. She has not had any fevers. No sick contacts. No known poor food exposures. Previous abdominal surgeries include cholecystectomy and hysterectomy. MD elicited complaint: nausea, vomiting, diarrhea and abdominal pain Onset (ago): day(s) Description of diarrhea: mucus and semi-solid Associated nausea: Yes Associated abdominal pain: Yes Location of pain: Epigastric, LUQ and RUQ Pain consistency: intermittent Severity: moderate Quality: cramping Exacerbating factors: eating Relieving factors: other (belching) Associated symtoms: Reports bloating and nausea; Denies chest pain, dizziness, dysuria, fatigue, headache(s) or malaise Review of Systems Const: Denies: fever(s), chills, body aches, fatigue or malaise Card: Denies: chest pain Resp: Denies: dyspnea GI: Reports: abdominal pain, nausea, vomiting, diarrhea, bloating, GI cramping, belching and mucus in stool; Denies: hematemesis, pain on defecation, rectal pain, rectal swelling, rectal itching, hematochezia or melena : Denies: flank pain, dysuria or hematuria Musc: Denies: neck pain, back pain, extremity pain or joint pain Skin/Breast: Denies: rash Neuro: Denies: headache(s), numbness in extremities, weakness in extremities, sensory changes or dizziness PFSH ED PFSH: Medical History Acute kidney injury superimposed on CKD Adult onset hypothyroidism Altered mental status Anxiety, generalized CAD (coronary artery disease) CHF (congestive heart failure), NYHA class III Chronic bilateral low back pain with bilateral sciatica Constipation, slow transit Dehydration Essential (primary) hypertension Fibromyalgia muscle pain 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 Gastric reflux Hyperkalemia Hypotension, unspecified Mixed hyperlipidemia Neuropathic pain of both legs Osteopenia of multiple sites Vitamin B12 deficiency Vitamin D deficiency Surgical History History of back surgery History of cholecystectomy History of hysterectomy History of tonsillectomy Family History Other Arthritis Coronary artery disease involving [place] coronary artery of [place] heart with unstable angina pectoris Diabetes Hypertension Thyroid disease Social History Smoking and tobacco/nicotine status: current every day tobacco/nicotine user Second hand smoke exposure: Yes Alcohol intake: never Substance/Drug Use: unknown Adopted: No Caregiver/support person: Yes Lives independently: No Household members: family Housing: House Marital status: service: No Current occupational status: disabled Do you think of yourself as: Straight/Heterosexual Current gender identity: Female Physical Exam Const: COMMON NORMALS: no acute distress, average body habitus, patient oriented x3, no limitations, healthy appearing, alert and well nourished GENERAL APPEARANCE: cooperative ORIENTATION/CONSCIOUSNESS: Yes awake, Yes oriented to person, Yes oriented to place and Yes oriented to time HENMT: COMMON NORMALS: normocephalic and atraumatic HEAD & SCALP: normal to inspection, normocephalic and atraumatic Eye: COMMON NORMALS: no scleral icterus Neck/C-Spine: COMMON NORMALS: no lymphadenopathy Resp: COMMON NORMALS: normal respiratory effort and clear to auscultation bilaterally AUSCULTATION: clear to auscultation bilaterally Cardio: COMMON NORMALS: regular rate and regular rhythm RATE: regular rate RHYTHM: regular rhythm GI: COMMON NORMALS: Normal to inspection, nondistended, normoactive bowel sounds present, Soft to palpation, No hepatosplenomegaly present and no masses INSPECTION: Yes normal to inspection AUSCULTATION: Yes normoactive bowel sounds PALPATION: Yes Soft to palpation, Yes Tenderness to palpation present (GI) (upper abdomen/RUQ), No Guarding due to palpation present (GI), No Rigid due to palpation and Yes No hepatosplenomegaly present : COMMON NORMALS: Yes no CVA tenderness BLADDER/KIDNEY EXAM: Yes no CVA tenderness Back/Pelvis: COMMON NORMALS: no CVA tenderness, thoracic and lumbar spine normal to inspection, no thoracic nor lumbar tenderness and thoraco-lumbar ROM normal Extremity: COMMON NORMALS: normal to inspection GENERAL: Yes normal exam except as noted Neuro: LORA COMA SCALE: document GCS findings Lora coma scale eye opening: Spontaneous [place] coma scale verbal response: Orientated Lora coma scale motor response: Obey commands Lora coma scale total score: 15 COMMON NORMALS: patient oriented x3, moves all extremities, no focal motor deficits and no sensory deficits noted SENSORIUM/ORIENTATION: Yes alert, Yes oriented to person, Yes oriented to place and Yes oriented to time Skin: COMMON NORMALS: no rashes or lesions noted GENERAL SKIN EXAM: no rashes or lesions noted Course Vital Signs: Vital signs: Vital Signs Temperature 97.6 F 08/26/23 09:26 Pulse Rate 73 08/26/23 09:26 Respiratory Rate 17 08/26/23 09:26 Blood Pressure 126/78 08/26/23 09:26 Pulse Oximetry 95 08/26/23 09:26 Oxygen Delivery Me thod Room Air 08/26/23 09:26 MDM - Nausea/Vomiting/Diarrhea Medical Decision Making Patient clinically appears well. Her vital signs are stable. Blood work overall is fairly unremarkable. Some hemoconcentration secondary to dehydration. Nonspecific very minor elevations to her AST/ALT.CT scan showing no acute findings. She does have a torturous appearance to her splenic flexure that has been present in previous imaging. No obstruction. I will place referral to get her set up for an evaluation for a colonoscopy for further evaluation. She has not had any vomiting or diarrhea while here. She states she feels better after the Reglan. She will be provided a prescription for this. Discussed continuing to push fluids to avoid further dehydration. She was given a liter of fluids here prior to discharge. Return ED precautions given. Patient states she will otherwise follow-up with primary care. UA was attempted to be collected numerous times but patient states she cannot go. She states she knows her symptoms are not related to a UTI and would like to be discharged without this. Lab Data 08/26/23 09:43 08/26/23 09:43 Radiology Impressions Chest/Abdomen X-ray 08/26/23 09:42 IMPRESSION: 1. No acute findings in the thorax. 2. Nonspecific gaseous distention of the colon, similar to findings on prior CTs. Paucity of small bowel gas. No visibly dilated small bowel. Laboratory Results WBC 8.06 10^3/uL (3.29-11.43) 08/26/23 09:43 RBC 5.72 10^6/uL (3.85-5.65) H 08/26/23 09:43 Hgb 17.10 g/dL (11.27-16.99) H 08/26/23 09:43 Hct 54.4 % (36-47) H 08/26/23 09:43 MCV 95.1 fl (85-98) 08/26/23 09:43 MCH 29.9 pg (27-33) 08/26/23 09:43 MCHC 31.4 g/dL (30-55) 08/26/23 09:43 RDW 15.7 % (12.1-15.1) H 08/26/23 09:43 Plt Count 197 10^3/cmm (157-399) 08/26/23 09:43 MPV 10.8 fL (7.4-10.4) H 08/26/23 09:43 Neut % (Auto) 79.1 % 08/26/23 09:43 Lymph % (Auto) 13.6 % 08/26/23 09:43 [place] % (Auto) 5.5 % 08/26/23 09:43 Eos % (Auto) 0.9 % 08/26/23 09:43 Baso % (Auto) 0.4 % 08/26/23 09:43 Neut # (Auto) 6.38 10^3/uL (1.8-7.7) 08/26/23 09:43 Lymph # (Auto) 1.1 10^3/uL (0.8-4.8) 08/26/23 09:43 [place] # (Auto) 0.4 10^3/uL (0.2-0.9) 08/26/23 09:43 Eos # (Auto) 0.1 10^3/uL (0.0-0.8) 08/26/23 09:43 Baso # (Auto) 0.0 10^3/uL (0.0-0.1) 08/26/23 09:43 Nucleated RBC % (auto) 0 % 08/26/23 09:43 Nucleated RBCs # 0.0 /100WBC 08/26/23 09:43 Sodium 135 mmol/L (136-145) L 08/26/23 09:43 Potassium 3.9 mmol/L (3.5-5.1) 08/26/23 09:43 Chloride 91 mmol/L (98-107) L 08/26/23 09:43 Carbon Dioxide 22 mmol/L (22-29) 08/26/23 09:43 Anion Gap 25.9 (5-19) H 08/26/23 09:43 BUN 22 mg/dL (8-23) 08/26/23 09:43 Creatinine 0.8 mg/dL (0.5-0.9) 08/26/23 09:43 GFR Calculation 72.7 mL/min (90-130) L 08/26/23 09:43 Glucose 104 mg/dL (65-115) 08/26/23 09:43 Calculated Osmolality 284 mOsm/kg (285-295) L 08/26/23 09:43 Calcium 9.5 mg/dL (8.5-10.5) 08/26/23 09:43 Total Bilirubin 0.9 mg/dL (0.15-1.2) 08/26/23 09:43 AST 57 U/L (0-32) H 08/26/23 09:43 ALT 35 U/L (0-33) H 08/26/23 09:43 Alkaline Phosphatase 56 U/L (35-105) 08/26/23 09:43 Total Protein 6.8 g/dL (6.6-8.7) 08/26/23 09:43 Albumin 3.9 g/dL (3.5-5.2) 08/26/23 09:43 Globulin 2.9 g/dL (1.3-4.6) 08/26/23 09:43 Lipase 25 U/L (13-60) 08/26/23 09:43 All radiology interpretation(s) finalized by discharge Discharge Plan Discharge Patient Disposition: Home Clinical Impression: Gastroenteritis Condition: Stable Prescriptions: New metoclopramide HCl 10 mg tablet 10 mg PO Q6H PRN (Reason: nausea and vomiting) Qty: 14 0RF No Action (DME) Duoderm See Rx Instructions .Route .MEDSUPPLY Qty: 10 0RF Rx Instructions: As directed irbesartan [Avapro] 75 mg tablet 75 mg PO DAILY Qty: 30 1RF Rx Instructions: stop HCTZ dose change on combo tramadol 50 mg tablet 50 mg PO Q6H PRN (Reason: pain) Qty: 90 0RF Rx Instructions: (rx on hold at pharmacy from 07/27/23) tizanidine [Zanaflex] 4 mg tablet 4 mg PO BID PRN (Reason: muscle spasticity) Qty: 60 0RF Rx Instructions: stop Valium calcium carbonate-vitamin D3 [Os-Alejo 500 + D3] 500 mg-5 mcg (200 unit) tablet 1 tab PO TID Qty: 180 0RF carvedilol [Coreg] 6.25 mg tablet 6.25 mg PO Q12H Qty: 180 0RF Rx Instructions: must administer with a meal/food dose decrease ergocalciferol (vitamin D2) 1,250 mcg (50,000 unit) capsule 50,000 unit PO Q7D Qty: 12 0RF Rx Instructions: on thursday fenofibrate micronized 134 mg capsule 134 mg PO DAILY@15 Qty: 90 0RF (DME) [id number] Bone Growth Stimulator See Rx Instructions .Route .MEDSUPPLY Qty: 1 0RF Rx Instructions: As directed gabapentin 800 mg tablet 800 mg PO TID Qty: 360 0RF glycopyrrolate 1 mg tablet 1 mg PO BID Qty: 60 2RF levothyroxine 50 mcg tablet 50 mcg PO DAILY@1500 Qty: 90 0RF Linzess 145 mcg capsule 145 mcg PO BEDTIME Qty: 30 2RF potassium gluconate 595 mg (99 mg) Tablet 595 mg PO TID@08,15,22 paroxetine HCl 30 mg tablet 30 mg PO DAILY@15 Discharge Orders: Discharge ED (Routine); Ordered 08/26/23 Ordered By: Lorie Mancilla Referrals: Hitesh Pal, [employer]ANT CONSTRUCTION WORKER-C [Primary Care Provider] - Patient Instructions: Gastroenteritis (DC), Acute Nausea and Vomiting (DC) Activity Restrictions/Additional Instructions: As we discussed please follow-up with your primary care provider later this week/early next week if symptoms persist. You may return to the emergency department for severe abdominal pain, repetitive episodes of vomiting or diarrhea, any blood in your vomit or stools, fevers, generally feeling worse or unwell, or any other concerns you may have. I hope you begin to feel better soon. Coding Level of Care Code ED Print Finishing Worker for Antonia Medina
--- NOTE | 2023-08-26 09:42 | XRR_ITS ---
PROCEDURE INFORMATION: Exam: XR Abdomen Exam date and time: 08/26/2023 10:03 AM Age: 63 years old Clinical indication: Nausea and vomiting; Prior surgery; Surgery date: 6+ months; Surgery type: Gb hyst back; Additional info: N/v/d; Belching TECHNIQUE: Imaging protocol: Radiologic exam of the abdomen. Views: 2 Views. Upright and supine views. COMPARISON: [place] [id number] 12/10/2021 12:[address] [place] [id number] 10/16/2022 3:39 PM FINDINGS: Lungs: There is no consolidation. Pleural spaces: There is no pleural effusion or pneumothorax. Heart/Mediastinum: Cardiomediastinal contours are unremarkable. Gastrointestinal tract: Gaseous distention of the colon is visible in the left upper abdomen. There is a paucity of small bowel gas. Intraperitoneal space: No intraperitoneal free air. Bones/joints: Thoracolumbar scoliosis and [place] rods noted. No acute fracture. XR/XR acute abdomen series [id number] IMPRESSION: 1. No acute findings in the thorax. 2. Nonspecific gaseous distention of the colon, similar to findings on prior CTs. Paucity of small bowel gas. No visibly dilated small bowel.
[2023-08-26 09:48] LABS: Basophils % 0.4 %; Eosinophils # 0.1 10^3/uL (0.0-0.8); Eosinophils % 0.9 %; Hematocrit 54.4 % (36-47); Lymphocytes # 1.1 10^3/uL (0.8-4.8); Lymphocytes % 13.6 %; Mean Corpuscular HGB Conc 31.4 g/dL (30-55); Mean Corpuscular Hemoglobin 29.9 pg (27-33); Mean Corpuscular Volume 95.1 fl (85-98); Mean Platelet Volume 10.8 fL (7.4-10.4); Monocytes # 0.4 10^3/uL (0.2-0.9); Monocytes % 5.5 %; Neutrophils # 6.38 10^3/uL (1.8-7.7); Neutrophils % 79.1 %; Nucleated Red Blood Cells % 0 %; Platelet Count 197 10^3/cmm (157-399); Red Blood Count 5.72 10^6/uL (3.85-5.65); Red Cell Distribution Width 15.7 % (12.1-15.1); White Blood Count 8.06 10^3/uL (3.29-11.43)
[2023-08-26 10:09] LABS: Alanine Aminotransferase 35 U/L (0-33); Albumin Level 3.9 g/dL (3.5-5.2); Alkaline Phosphatase 56 U/L (35-105); Anion Gap 25.9 (5-19); Aspartate Amino Transferase 57 U/L (0-32); Blood Urea Nitrogen 22 mg/dL (8-23); Calcium 9.5 mg/dL (8.5-10.5); Carbon Dioxide 22 mmol/L (22-29); Chloride 91 mmol/L (98-107); Globulin 2.9 g/dL (1.3-4.6); Glomerular Filtration Rate 72.7 mL/min (90-130); Glucose 104 mg/dL (65-115); Lipase 25 U/L (13-60); Osmolality Calculated 284 mOsm/kg (285-295); Potassium 3.9 mmol/L (3.5-5.1); Sodium 135 mmol/L (136-145); Total Bilirubin 0.9 mg/dL (0.15-1.2); Total Protein 6.8 g/dL (6.6-8.7)
--- NOTE | 2023-08-26 10:24 | CT_ITS ---
WS: [id number] CT ABDOMEN PELVIS TECHNIQUE: Noncontrast CT of the abdomen and pelvis with coronal and sagittal reformatted images. CLINICAL INFORMATION: bloating, belching, N/V/D COMPARISON: 09/2022 DLP: 486.[address] scans at [facility] use at least one of these dose optimization techniques: automated e xposure control; mA and/or kV adjustment per patient size (includes targeted exams where dose is matc hed to clinical indication); or iterative reconstruction. FINDINGS: Tortuous splenic flexure with transition to decompressed colon in this area. This is similar to previ ous and recommend follow-up with colonoscopy. No visualized mass or lesion in this area. Thoracolumbar scoliosis convex RIGHT with dorsal froylan and pedicle screw fixation. Subsegmental atelect asis RIGHT lower lobe. Cholecystectomy clips. Noncontrast liver is normal. Normal GE junction. Noncontrast pancreas is ana luisa l. Adrenal glands are normal. Small bilateral renal cysts. Some are too small to definitively charact erize. Noncontrast spleen is normal. Fat-containing umbilical hernia. Urine distended bladder. Normal caliber abdominal aorta. No evidence of high-grade small or large bow el obstruction. No fluid in the abdomen or pelvis. IMPRESSION: 1. Tortuous splenic flexure with transition to decompressed colon in this area. This is similar to p revious and recommend follow-up with colonoscopy. No visualized mass or lesion in this area. 2. No evidence of small or large bowel obstruction. 3. No other suspicious findings.
--- NOTE | 2023-08-26 10:26 | PC.PHAR ---
pt and pts family in room with pt verified pts medications-pt states she is no longer taking diazepam 5mg tid prn,baclofen 10mg filled 05/2023 90d/s and [id number] pt states insurance will no longer pay for those medications-pt has rx on hold at [facility] for ultram 50mg po q6h prn written 07/27/23
[2023-08-26] MEDS: ondansetron 2 mg/ML SDV 2 mL 4 MG IVP (10:28)
[2023-08-26] MEDS: sodium chloride 0.9% 1,000 ML 999 ML IV (10:28)
[2023-08-26] MEDS: metoclopramide 5 mg/mL SDV 2 mL 10 MG IVP (11:02)
--- NOTE | 2023-08-26 12:05 | DCPLANNER ---
Message sent to Gen surgery for follow -up colonoscopy, abnormal findings on CT.
== END 2023-08-26 12:12 | disposition home or self-care (01) ==
PROVIDERS: Emergency Provider Physician Assistant; PCP Nurse Practitioner
DX: K52.9 Noninfective gastroenteritis and colitis, unspecified (principal); Z72.0 Tobacco use; I13.0 Hypertensive heart and chronic kidney disease with heart failure and stage 1 through stage 4 chronic kidney disease, or unspecified chronic kidney disease; N18.9 Chronic kidney disease, unspecified; I50.9 Heart failure, unspecified; I25.10 Atherosclerotic heart disease of native coronary artery without angina pectoris; E78.2 Mixed hyperlipidemia
CPT/HCPCS: 36415; 74022; 74176; 80053; 83690; 85025; 96361; 96374; 96375; 99284; J2405; J2765; J7030

== ENCOUNTER → 2023-09-06 13:36 | Outpatient (BNVA) | payer MEDICARE, MEDICAID, SELFPAY | PROVIDERS: PCP Nurse Practitioner; Visit Provider Nurse Practitioner | DX: R39.9 Unspecified symptoms and signs involving the genitourinary system (principal); N39.0 Urinary tract infection, site not specified | CPT/HCPCS: 81000; 87077; 87086; 87184 ==

== ENCOUNTER → 2023-09-29 10:31 | Outpatient (BNVA) | payer MEDICARE, MEDICAID, SELFPAY | PROVIDERS: PCP Nurse Practitioner; Visit Provider Nurse Practitioner | DX: R74.01 Elevation of levels of liver transaminase levels (principal); E03.8 Other specified hypothyroidism; G57.93 Unspecified mononeuropathy of bilateral lower limbs; K59.01 Slow transit constipation; F41.1 Generalized anxiety disorder; M62.838 Other muscle spasm; M79.7 Fibromyalgia | CPT/HCPCS: 80053; 81000; 84443; 85025; 86705; 86706; 86709; 86803; 87340 ==

== ENCOUNTER → 2023-10-27 14:17 | Outpatient (BNVA) | payer MEDICARE, MEDICAID, SELFPAY | PROVIDERS: PCP Nurse Practitioner; Visit Provider Nurse Practitioner | DX: M43.20 Fusion of spine, site unspecified (principal); I10 Essential (primary) hypertension; I25.10 Atherosclerotic heart disease of native coronary artery without angina pectoris; E55.9 Vitamin D deficiency, unspecified; E78.2 Mixed hyperlipidemia; G57.93 Unspecified mononeuropathy of bilateral lower limbs; K11.7 Disturbances of salivary secretion; E03.8 Other specified hypothyroidism; K59.01 Slow transit constipation; F41.1 Generalized anxiety disorder; M62.838 Other muscle spasm; M79.7 Fibromyalgia | CPT/HCPCS: 80048 ==

== ENCOUNTER → 2023-11-17 10:27 | Outpatient (BNVA) | payer MEDICARE, MEDICAID, SELFPAY | PROVIDERS: PCP Nurse Practitioner; Visit Provider Nurse Practitioner | DX: M79.7 Fibromyalgia; M79.671 Pain in right foot; K11.7 Disturbances of salivary secretion; R11.0 Nausea; M19.071 Primary osteoarthritis, right ankle and foot | CPT/HCPCS: 73610; 73630; 84550 ==

== ENCOUNTER → 2023-12-02 15:00 | Outpatient (BNVA) | payer MEDICARE, MEDICAID, SELFPAY | PROVIDERS: PCP Nurse Practitioner; Visit Provider Podiatrist Foot & Ankle Surgery | DX: R09.89 Other specified symptoms and signs involving the circulatory and respiratory systems (principal); M25.471 Effusion, right ankle; S82.53XA Displaced fracture of medial malleolus of unspecified tibia, initial encounter for closed fracture; X58.XXXA Exposure to other specified factors, initial encounter | CPT/HCPCS: 99203 ==

== ENCOUNTER 2023-12-02 15:33 | Emergency (ER) | payer MEDICARE, MEDICAID, SELFPAY ==
--- NOTE | 2023-12-02 15:35 | USCV_ITS ---
Viola Ennis Age: 63 Gender: F : 1960 Exam Date: 12/02/2023 15:49 Ordering Phys: Yoselin Skaggs MD Technologist: CT Exam Location: [facility] [place] Indication: swelling rt PROCEDURES: Venous duplex imaging was performed in only the right lower extremity. On the right side, the common femoral, superficial femoral, profunda femoral, popliteal, posterior tibial, greater saphenous veins and the peroneal trunk were identified and interrogated in the standard fashion. These veins were found to be easily compressible with spontaneous blood flow. No evidence of insufficiency or thrombus noted. FINDINGS: normal us CONCLUSIONS No evidence of right lower extremity DVT. Miah Jones MD (Electronically Signed) Final Date: 03 December 2023 09:21 S
[2023-12-02 15:37] VITALS: BP 149/95; PULSE 75; RESP 16; TEMP 36.8; O2SAT 97
== END 2023-12-02 18:00 | disposition left against medical advice (07) ==
PROVIDERS: Emergency Provider Family Medicine; PCP Nurse Practitioner
DX: Z53.21 Procedure and treatment not carried out due to patient leaving prior to being seen by health care provider (principal)
CPT/HCPCS: 93971

== ENCOUNTER → 2023-12-17 11:12 | Outpatient (BNVA) | payer MEDICARE, MEDICAID, SELFPAY | PROVIDERS: PCP Nurse Practitioner; Visit Provider Podiatrist Foot & Ankle Surgery | DX: S82.51XA Displaced fracture of medial malleolus of right tibia, initial encounter for closed fracture; X58.XXXA Exposure to other specified factors, initial encounter; M25.471 Effusion, right ankle | CPT/HCPCS: 73610; 99213 ==

== ENCOUNTER → 2023-12-31 11:07 | Outpatient (BNVA) | payer MEDICARE, MEDICAID, SELFPAY | PROVIDERS: PCP Nurse Practitioner; Visit Provider Podiatrist Foot & Ankle Surgery | DX: S82.53XA Displaced fracture of medial malleolus of unspecified tibia, initial encounter for closed fracture (principal); X58.XXXA Exposure to other specified factors, initial encounter; M25.471 Effusion, right ankle | CPT/HCPCS: 73610; 99213 ==

== ENCOUNTER → 2024-01-19 11:03 | Outpatient (BNVA) | payer MEDICARE, MEDICAID, SELFPAY | PROVIDERS: PCP Nurse Practitioner; Visit Provider Podiatrist Foot & Ankle Surgery | DX: M25.471 Effusion, right ankle (principal); S82.53XD Displaced fracture of medial malleolus of unspecified tibia, subsequent encounter for closed fracture with routine healing; X58.XXXD Exposure to other specified factors, subsequent encounter | CPT/HCPCS: 99213 ==

== ENCOUNTER 2024-01-26 15:07 | Outpatient (CLI) | payer MEDICARE, MEDICAID, SELFPAY ==
--- NOTE | 2024-01-26 15:30 | CTR_ITS ---
PROCEDURE INFORMATION: Exam: CT Chest Without Contrast; Diagnostic Exam date and time: 01/26/2024 4:27 PM Age: 63 years old Clinical indication: Condition or disease; Other: Essential (primary) hypertension; Prior surgery; Surgery date: 6+ months; Surgery type: Surgery--entire spine, gb, hyst; Additional info: I10 - essential (primary) hypertension TECHNIQUE: Imaging protocol: Diagnostic computed tomography of the chest without contrast. Radiation optimization: All CT scans at this facility use at least one of these dose optimization techniques: automated exposure control; mA and/or kV adjustment per patient size (includes targeted exams where dose is matched to clinical indication); or iterative reconstruction. COMPARISON: [place] [id number] 10/16/2022 3:39 PM RADIATION DOSE METRICS: Total DLP (mGy-cm): 642.01 FINDINGS: Thyroid: No significant thyroid pathology. Lungs: Moderate pulmonary emphysema. No acute pulmonary pathology. Mild basilar scar versus atelectasis. Pleural spaces: No pleural effusion. Heart: Unremarkable. No cardiomegaly. No pericardial effusion. Coronary arteries: Coronary artery calcifications. Lymph nodes: No evidence of lymphadenopathy. Vasculature: No evidence of thoracic aortic aneurysm. Bones/joints: Thoracolumbar spine curvature with fusion rods in place. Soft tissues: Unremarkable. Other findings: Evaluation limited by respiratory degradation. COMMENTS: The presence of pulmonary emphysema on CT is an independent risk factor for lung cancer. In the absence of a history or active diagnosis of lung cancer, it is recommended that this patient with emphysema be evaluated for enrollment in a low dose CT lung cancer screening program. PROCEDURE INFORMATION: Exam: CT Abdomen And Pelvis Without Contrast Exam date and time: 01/26/2024 4:27 PM Age: 63 years old Clinical indication: Condition or disease; Other: Essential (primary) hypertension; Prior surgery; Surgery date: 6+ months; Surgery type: Surgery--entire spine, gb, hyst; Additional info: I10 - essential (primary) hypertension TECHNIQUE: Imaging protocol: Computed tomography of the abdomen and pelvis without contrast. Radiation optimization: All CT scans at this facility use at least one of these dose optimization techniques: automated exposure control; mA and/or kV adjustment per patient size (includes targeted exams where dose is matched to clinical indication); or iterative reconstruction. COMPARISON: CT abdomen pelvis wo con [id number] 08/26/2023 10:32 AM RADIATION DOSE METRICS: Total DLP (mGy-cm): 642.01 FINDINGS: Lungs: Visualized lung bases are free of significant pathology. Liver: No significant liver pathology. Gallbladder and bile ducts: Prior cholecystectomy. No biliary dilatation. Pancreas: No significant pancreatic pathology. Spleen: No significant splenic pathology. Adrenal glands: No significant adrenal pathology. Kidneys and ureters: Right renal cortical cyst measuring 1.5 cm. Stomach and bowel: Large amount of colonic gas and moderate amount of colonic stool. Appendix: No appendiceal pathology evident. Intraperitoneal space: No ascites. Vasculature: No abdominal aortic aneurysm. Lymph nodes: No evidence of lymphadenopathy. Urinary bladder: Unremarkable urinary bladder. Reproductive: Prior hysterectomy. No significant adnexal pathology. Bones/joints: Extensive thoracolumbar fusion hardware into the pelvis bilaterally. No complication seen. Soft tissues: Small fat containing umbilical hernia. CT/[place] [id number] IMPRESSION: No acute pathology. Moderate pulmonary emphysema. Prior hardware fixation thoracolumbar scoliosis. IMPRESSION: No acute pathology. Minor findings described above. COMMENTS: Consistent with the [employer]'s Incidental Findings Committee white paper (J Am Jessie Radiol 2018): Any incidental renal lesion less than 1 cm or classified as too small to characterize, or any incidental cystic renal lesion characterized as simple-appearing, is likely benign. No follow-up imaging is recommended for these lesions per consensus recommendations based on imaging criteria.
[2024-01-26] MEDS: barium sulfate 450 mL Oral Susp PO (15:38)
== END 2024-01-26 15:08 | disposition home or self-care (01) ==
LOC: RAD 15:08
PROVIDERS: PCP Nurse Practitioner; Visit Provider Nurse Practitioner
DX: I10 Essential (primary) hypertension (principal); R93.5 Abnormal findings on diagnostic imaging of other abdominal regions, including retroperitoneum; J44.9 Chronic obstructive pulmonary disease, unspecified; J43.9 Emphysema, unspecified
CPT/HCPCS: 71250; 74176

== ENCOUNTER → 2024-02-10 13:44 | Outpatient (BNVA) | payer MEDICARE, MEDICAID, SELFPAY | PROVIDERS: PCP Nurse Practitioner; Visit Provider Nurse Practitioner | DX: M43.20 Fusion of spine, site unspecified (principal); I10 Essential (primary) hypertension; I25.10 Atherosclerotic heart disease of native coronary artery without angina pectoris; E55.9 Vitamin D deficiency, unspecified; E78.2 Mixed hyperlipidemia; G57.93 Unspecified mononeuropathy of bilateral lower limbs; K11.7 Disturbances of salivary secretion; E03.8 Other specified hypothyroidism; K59.01 Slow transit constipation; M79.7 Fibromyalgia; F41.1 Generalized anxiety disorder; E53.8 Deficiency of other specified B group vitamins; Z79.899 Other long term (current) drug therapy | CPT/HCPCS: 80053; 80061; 82306; 82607; 84443 ==

== ENCOUNTER 2024-03-24 11:30 | Outpatient (CLI) | payer MEDICARE, MEDICAID, SELFPAY ==
--- NOTE | 2024-03-24 11:45 | MR_ITS ---
WS: [id number] MRI CERVICAL SPINE NONCONTRAST HISTORY: M54.2 - Cervicalgia COMPARISON: 12/04/2021 Technique: Multiplanar, multisequence noncontrast imaging of the cervical spine. Increasing cervical lordosis. Previously described marrow edema in C5 and C6 has resolved. Signal within the cervical cord is normal. Visualized posterior fossa is unremarkable. Craniocervical junction, C1 and C2 relationship, odontoid process and soft tissues are normal. C2-C3: Facet arthritis, mild bilateral foraminal narrowing. No disc protrusion. C3-C4: Endplate osteophytic ridging with disc osteophytes. Moderate LEFT and mild RIGHT foraminal jeronimo nosis. Similar to the prior study. Mild facet arthropathy. C4-C5: Disc osteophyte complexes with osteophytic ridging. Mild facet arthritis. Mild central and laura ateral foraminal stenosis. C5-C6: Osteophytic ridging encroaching upon the ventral thecal sac. Facet arthritis. Moderate to loan re central with bilateral foraminal stenosis and facet arthritis. Similar to the prior study. C6-C7: Disc osteophyte disease with a central disc protrusion. Osteophytic ridging. Bilateral foramin al stenosis is moderate to severe. C7-T1: Tiny central disc protrusion. Mild bony foraminal narrowing. Paravertebral soft tissues are negative. The soft tissues are being degraded by motion artifact. MR/MR cervical spin wo con* [id number] IMPRESSION: 1. Significant motion artifact due to patient's pain and difficulty remaining still. Patient was unable to undergo repeat imaging for better detail. 2. Minimal progression of disease since 12/04/2021. 3. C6-7: Moderate to severe bilateral foraminal stenosis and central stenosis. Stenosis does appear to progressed since the prior study. 4. C5-6: Moderate to severe central with bilateral foraminal stenosis and face t arthritis, unchanged. 5. C3-4: Moderate LEFT and mild foraminal stenosis, unchanged. 6. Interval resolution of the marrow edema described on the prior study involv ing C5 and C6.
== END 2024-03-24 11:31 | disposition home or self-care (01) ==
LOC: RAD 11:31
PROVIDERS: PCP Nurse Practitioner; Visit Provider Nurse Practitioner
DX: L57.0 Actinic keratosis (principal); L81.4 Other melanin hyperpigmentation; L82.1 Other seborrheic keratosis; D22.4 Melanocytic nevi of scalp and neck; W89.1XXA Exposure to tanning bed, initial encounter; X58.XXXA Exposure to other specified factors, initial encounter; M54.2 Cervicalgia
CPT/HCPCS: 17000; 72141; 99203

== ENCOUNTER 2024-05-12 12:56 | Outpatient (CLI) | payer MEDICARE, MEDICAID, SELFPAY ==
--- NOTE | 2024-05-12 13:03 | MM_ITS ---
WS: [id number] BILATERAL SCREENING DIGITAL TOMOSYNTHESIS MAMMOGRAM WITH CAD HISTORY: SCREENING COMPARISON: 05/06/2023, 01/21/2021, 11/23/2013 Bilateral CC and MLO views with tomosynthesis and synthetic mammography submitted. Computer aided det ection analyzed. Breast composition: There are scattered areas of fibroglandular density. No suspicious masses, microc alcifications or architectural distortion. 5 x 3 mm slightly lobulated mass in the medial RIGHT breas t has been present since at least 2013. 10 mm mass in the lateral LEFT breast with calcification has been present also since 2013. No new or suspicious mass or calcification. MM/[place] [id number] IMPRESSION: BI-RADS: 2-Benign FOLLOW UP: 1 Year Follow-up
== END 2024-05-12 12:57 | disposition home or self-care (01) ==
LOC: RAD 12:56
PROVIDERS: PCP Nurse Practitioner; Visit Provider Nurse Practitioner
DX: Z12.31 Encounter for screening mammogram for malignant neoplasm of breast (principal); R92.323 Mammographic fibroglandular density, bilateral breasts; N63.20 Unspecified lump in the left breast, unspecified quadrant; N63.10 Unspecified lump in the right breast, unspecified quadrant
CPT/HCPCS: 77063; 77067

== ENCOUNTER → 2024-07-18 11:47 | Outpatient (BNVA) | payer MEDICARE, MEDICAID, SELFPAY | PROVIDERS: PCP Nurse Practitioner; Visit Provider Nurse Practitioner | DX: I10 Essential (primary) hypertension (principal); E55.9 Vitamin D deficiency, unspecified; E03.8 Other specified hypothyroidism | CPT/HCPCS: 80053; 80061; 82306; 82607; 84443; 85025 ==

== ENCOUNTER 2024-08-14 20:57 | Emergency (ER) | payer MEDICARE, MEDICAID, SELFPAY ==
[2024-08-14 21:28] VITALS: BP 159/92; PULSE 95; RESP 18; TEMP 37; O2SAT 92
--- NOTE | 2024-08-14 21:33 | XRR_ITS ---
PROCEDURE INFORMATION: Exam: XR Left Hip Exam date and time: 08/14/2024 11:54 PM Age: 64 years old Clinical indication: Injury or trauma; Fall; Blunt trauma (contusions or hematomas); Prior surgery; Surgery date: 6+ months; Surgery type: Spinal/pelvic fusion; Patient HX: Patient fell walking up porch steps with walker. C/O left hip pain. TECHNIQUE: Imaging protocol: Radiologic exam of the left hip. Views: 2 or 3 views hip with pelvis when performed. COMPARISON: [place] [id number] 01/26/2024 4:27 PM FINDINGS: Bones/joints: Subjective bony demineralization. No evidence of acute fracture or dislocation. No erosive disease. No significant degenerative change. Lumbosacral fusion hardware is partly visualized. Soft tissues: Unremarkable. XR/XR hip LT 2-3V wo/w pel* [id number] IMPRESSION: No acute bony injury. Subjective bony demineralization.
--- NOTE | 2024-08-14 21:33 | XRR_ITS ---
PROCEDURE INFORMATION: Exam: XR Right Wrist Exam date and time: 08/14/2024 11:51 PM Age: 64 years old Clinical indication: Injury or trauma; Fall; Blunt trauma (contusions or hematomas); Right; Patient HX: Patient fell walking up porch steps with a walker. C/O RT wrist pain. TECHNIQUE: Imaging protocol: Radiologic exam of the right wrist. Views: 3 or more views. COMPARISON: No relevant prior studies available. FINDINGS: Bones/joints: Comminuted fracture of the distal radius noted with intra-articular extension. Intact ulna and carpal bones. Soft tissues: Expected regional soft tissue swelling. XR/XR wrist RT min 3V* [id number] IMPRESSION: Comminuted intra-articular distal radius fracture with expected regional soft tissue swelling. No additional acute bony injury in the field of view.
--- NOTE | 2024-08-14 21:33 | XRR_ITS ---
PROCEDURE INFORMATION: Exam: XR Left Knee Exam date and time: 08/14/2024 11:54 PM Age: 64 years old Clinical indication: Injury or trauma; Fall; Blunt trauma; Patient HX: Patient fell walking up porch steps with walker. C/O left knee pain. TECHNIQUE: Imaging protocol: Radiologic exam of the left knee. Views: 3 views. COMPARISON: CR (LOW EXM, ) 08/14/2024 11:54 PM FINDINGS: Bones/joints: Subjective bony demineralization. No evidence of acute fracture or dislocation. No erosive disease. No significant degenerative change. No joint effusion. Soft tissues: Normal. XR/XR knee LT 3V* [id number] IMPRESSION: No acute bony injury.
--- NOTE | 2024-08-14 21:33 | XRR_ITS ---
PROCEDURE INFORMATION: Exam: XR Left Ankle Exam date and time: 08/14/2024 11:54 PM Age: 64 years old Clinical indication: Injury or trauma; Fall; Blunt trauma; Patient HX: Patient fell walking up porch steps with a walker. C/O left ankle pain. TECHNIQUE: Imaging protocol: Radiologic exam of the left ankle. Views: 3 or more views. COMPARISON: CR (LOW EXM, ) 08/14/2024 11:54 PM FINDINGS: Bones/joints: Subjective bony demineralization. No evidence of acute fracture or dislocation. No erosive disease. No significant degenerative change. Soft tissues: Normal. XR/XR ankle LT min 3V* [id number] IMPRESSION: No acute bony injury. Demineralized bony structures.
--- NOTE | 2024-08-14 23:43 | ED_ITS ---
HPI - Fall General: Chief Complaint: Fall Stated Complaint: fall right arm left leg/hip/ankle lay [id number] Time Seen by Provider: 08/14/24 23:36 History of Present Illness: 64-year-old female comes in today for ev aluation of injury to the right wrist and right lower extremity. Patient states that she was walking up some steps when she stubbed her foot causing her to lose her balance and fall backwards. Patient caught herself with her right wrist first and then landed onto her left hip. Patient can transfer with minimal assist. Patient can bear weight on her extremity. Patient does have some swelling and mild deformity to the right wrist. Related Data Home Medications Medication Instructions Recorded Confirmed potassium gluconate 595 mg (99 mg) 595 mg PO TID@08,,03/12/20 07/18/24 tablet Previous Rx's Medication Instructions Recorded Duoderm #10 ea 08/06/21 [id number] Bone Growth Stimulator #1 ea 06/09/23 calcium 500 mg (as 1 tab PO TID #180 tabs 06/09/23 carbonate)-vitamin D3 5 mcg (200 unit) tablet (Os-Alejo 500 + D3) CAM boot #1 ea 12/02/23 meclizine 25 mg tablet 25 mg PO DAILY PRN nausea and 12/10/23 vomiting #30 tabs ASO brace #1 ea 12/31/23 eszopiclone 1 mg tablet (Lunesta) 1 mg PO .at bedtime #30 tabs 03/15/24 syringe with needle 3 mL 25 gauge #5 ea 03/15/24 x 1 (BD Luer-Rae Syringe) ergocalciferol (vitamin D2) 1,250 50,000 unit PO Q7D #12 caps 06/26/24 mcg (50,000 unit) capsule baclofen 10 mg tablet See Rx Instructions .Route 07/18/24 .COMPLEX #360 tabs carvedilol 6.25 mg tablet (Coreg) 6.25 mg PO Q12H #180 tabs 07/18/24 cyanocobalamin (vitamin B-12) 1,000 mcg IM .monthly #2 mL 07/18/24 1,000 mcg/mL injection solution fenofibrate micronized 134 mg 134 mg PO DAILY@15 #90 caps 07/18/24 capsule gabapentin 800 mg tablet 800 mg PO TID #360 tabs 07/18/24 glycopyrrolate 1 mg tablet 1 mg PO TID #270 tabs 07/18/24 irbesartan 150 mg tablet (Avapro) 150 mg PO DAILY #90 tabs 07/18/24 levothyroxine 50 mcg tablet 50 mcg PO DAILY@1500 #90 tabs 07/18/24 linaclotide 145 mcg capsule 145 mcg PO BEDTIME #90 caps 07/18/24 (Linzess) paroxetine HCl 30 mg tablet 30 mg PO DAILY #90 tabs 07/18/24 hydrocodone 5 mg-acetaminophen 325 1 tab PO Q6H PRN pain #10 tabs 08/15/24 mg tablet Allergies Allergy/AdvReac Type Severity Reaction Status Date / Time atorvastatin [From Lipitor] Allergy Unknown known Verified 08/14/24 21:32 ezetimibe [From Zetia] Allergy Unknown unknown Verified 08/14/24 21:32 rosuvastatin [From Crestor] Allergy Unknown unknown Verified 08/14/24 21:32 Mfbeexv-LAC-HoE Reductase Allergy Unknown Unknown Verified 08/14/24 21:32 Inhibitor [Mdocubd-Kuf-Hlf Reductase Inhibitor] Sulfa (Sulfonamide Allergy Unknown Unknown Verified 08/14/24 21:32 Antibiotics) sumatriptan [From Imitrex] Allergy Unknown known Verified 08/14/24 21:32 IV contrast dye Allergy ALGY-Anaphy Uncoded 08/14/24 21:32 laxis Review of Systems General: Reports: 10 or more systems reviewed and unremarkable except in HPI and below PFSH ED PFSH: Medical History COPD (chronic obstructive pulmonary disease) Dehydration Hyperkalemia Acute kidney injury superimposed on CKD Altered mental status Anxiety, generalized CHF (congestive heart failure), NYHA class III Constipation, slow transit 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 CAD (coronary artery disease) Vitamin B12 deficiency Essential (primary) hypertension Gastric reflux Fibromyalgia muscle pain Osteopenia of multiple sites Chronic bilateral low back pain with bilateral sciatica Vitamin D deficiency Mixed hyperlipidemia Adult onset hypothyroidism Hypotension, unspecified Neuropathic pain of both legs Surgical History History of back surgery History of cholecystectomy History of tonsillectomy History of hysterectomy Family History Other Arthritis Coronary artery disease involving [place] coronary artery of [place] heart with unstable angina pectoris Diabetes Hypertension Thyroid disease Social History Smoking and tobacco/nicotine status: current every day tobacco/nicotine user Second hand smoke exposure: Yes Alcohol intake: never Substance/Drug Use: unknown Adopted: No Caregiver/support person: Yes Lives independently: No Household members: family Housing: House Marital status: service: No Current occupational status: disabled Do you think of yourself as: Straight/Heterosexual Current gender identity: Female Physical Exam Const: COMMON NORMALS: alert HENMT: COMMON NORMALS: normocephalic HEAD & SCALP: normocephalic Neck/C-Spine: COMMON NORMALS: full ROM Resp: COMMON NORMALS: normal respiratory effort and clear to auscultation bilaterally AUSCULTATION: clear to auscultation bilaterally Cardio: COMMON NORMALS: regular rate RATE: regular rate GI: COMMON NORMALS: Soft to palpation PALPATION: Yes Soft to palpation Back/Pelvis: COMMON NORMALS: thoracic and lumbar spine normal to inspection Extremity: RIGHT UPPER EXTREMITY: Yes wrist (Tenderness with mild deformity dorsal) Neuro: SENSORIUM/ORIENTATION: Yes alert Skin: COMMON NORMALS: turgor normal GENERAL SKIN EXAM: turgor normal Course Vital Signs: Vital signs: Vital Signs Temperature 98.6 F 08/14/24 21:28 Pulse Rate 95 08/14/24 21:28 Respiratory Rate 18 08/14/24 21:28 Blood Pressure 159/92 08/14/24 21:28 Pulse Oximetry 92 08/14/24 21:28 Oxygen Delivery Me thod Room Air 08/14/24 21:28 MDM - Fall Medical Decision Making 64-year-old female comes in today with injury to the right wrist. Patient also complains of some pain to the left hip, left knee, and left ankle. Patient is weightbearing. Patient does have guarded movement of the left lower extremity. Patient has significant swelling and mild deformity noted to the right wrist. Cap refill and sensation is distal intact. Differential diagnosis includes dislocation, fracture, sprain. X-ray notes a fracture of the distal right radius. X-rays of the hip, knee, and ankle were unremarkable for fracture. Patient was placed in a short arm volar wrist splint. Patient will follow-up with orthopedics for definitive treatment. XR interpretation done by ED provider, pending radiology final review Discharge Plan Discharge Patient Disposition: Home Clinical Impression: Right wrist fracture Qualifiers: Encounter type: initial encounter Fracture type: closed Qualified Code(s): S62.101A - Fracture of unspecified carpal bone, right wrist, initial encounter for closed fracture Condition: Stable Prescriptions: New hydrocodone-acetaminophen 5-325 mg tablet 1 tab PO Q6H PRN (Reason: pain) Qty: 10 0RF No Action (DME) Duoderm See Rx Instructions .Route .MEDSUPPLY Qty: 10 0RF Rx Instructions: As directed meclizine 25 mg tablet 25 mg PO DAILY PRN (Reason: nausea and vomiting) Qty: 30 0RF (DME) ASO brace See Rx Instructions .Route .MEDSUPPLY Qty: 1 0RF Rx Instructions: As directed lidocaine (PF) 10 mg/mL (1 %) syringe 8 ml IM ONCE Qty: 8 0RF (DME) BD Luer-Rae Syringe 3 mL 25 gauge x 1 syringe See Rx Instructions .ROUTE .MEDSUPPLY Qty: 5 0RF Hold Instructions: Doctor's Order Rx Instructions: monthly eszopiclone [Lunesta] 1 mg tablet 1 mg PO .at bedtime Qty: 30 0RF calcium carbonate-vitamin D3 [Os-Alejo 500 + D3] 500 mg-5 mcg (200 unit) tablet 1 tab PO TID Qty: 180 0RF (DME) [id number] Bone Growth Stimulator See Rx Instructions .Route .MEDSUPPLY Qty: 1 0RF Rx Instructions: As directed (DME) CAM boot See Rx Instructions .Route .MEDSUPPLY Qty: 1 0RF Rx Instructions: As directed to HOME baclofen 10 mg tablet See Rx Instructions .ROUTE .COMPLEX Qty: 360 1RF Rx Instructions: 10mg po qam, 10mg @15:00,20mg @22:00; carvedilol [Coreg] 6.25 mg tablet 6.25 mg PO Q12H Qty: 180 1RF Rx Instructions: must administer with a meal cyanocobalamin (vitamin B-12) 1,000 mcg/mL solution 1,000 mcg IM .monthly Qty: 2 2RF fenofibrate micronized 134 mg capsule 134 mg PO DAILY@15 Qty: 90 1RF gabapentin 800 mg tablet 800 mg PO TID Qty: 360 1RF glycopyrrolate 1 mg tablet 1 mg PO TID Qty: 270 1RF irbesartan [Avapro] 150 mg tablet 150 mg PO DAILY Qty: 90 1RF levothyroxine 50 mcg tablet 50 mcg PO DAILY@1500 Qty: 90 1RF Linzess 145 mcg capsule 145 mcg PO BEDTIME Qty: 90 1RF paroxetine HCl 30 mg tablet 30 mg PO DAILY Qty: 90 1RF ergocalciferol (vitamin D2) 1,250 mcg (50,000 unit) capsule 50,000 unit PO Q7D Qty: 12 0RF Rx Instructions: on thursday potassium gluconate 595 mg (99 mg) Tablet 595 mg PO TID@08,15, Discharge Orders: Discharge ED (Routine); Ordered 08/15/24 Ordered By: Luis Joyce Referrals: Hitesh Pal, [employer] DAT[employer]ASE DEVELOPER-C [Primary Care Provider] - Discharge Diet: Usual diet Discharge Activity: Limit activity as instructed Patient Instructions: Opioid Safety, Pain Management Activity Restrictions/Additional Instructions: Keep splint clean and dry. Case management will contact you regarding follow-up with orthopedics for further evaluation and treatment. Return to ED for new concerns. Coding Level of Care Code ED Layup Worker for Antonia Medina
[2024-08-15] MEDS: ondansetron 4 MG Tablet PO (00:26)
[2024-08-15] MEDS: HYDROcodone-acetaminophen 5-325 mg Tablet 1 TAB PO (00:26)
[2024-08-15 01:34] VITALS: BP 147/62; PULSE 87; RESP 17; O2SAT 94
--- NOTE | 2024-08-15 07:13 | DCPLANNER ---
messaged ortho for er f/u
== END 2024-08-15 01:38 | disposition home or self-care (01) ==
PROVIDERS: Emergency Provider Nurse Practitioner Family; PCP Nurse Practitioner
DX: S52.571A Other intraarticular fracture of lower end of right radius, initial encounter for closed fracture (principal); W10.9XXA Fall (on) (from) unspecified stairs and steps, initial encounter
CPT/HCPCS: 29125; 73110; 73502; 73562; 73610; 99284; Q0162

== ENCOUNTER → 2024-08-17 14:14 | Outpatient (BNVA) | payer MEDICARE, MEDICAID, SELFPAY | PROVIDERS: PCP Nurse Practitioner; Visit Provider Specialist | DX: S62.101A Fracture of unspecified carpal bone, right wrist, initial encounter for closed fracture (principal); S52.571A Other intraarticular fracture of lower end of right radius, initial encounter for closed fracture; W18.39XA Other fall on same level, initial encounter | CPT/HCPCS: 73110 ==

== ENCOUNTER 2024-08-17 17:16 | Outpatient (CLI) | payer MEDICARE, MEDICAID, SELFPAY | END 2024-08-17 17:17 | disposition home or self-care (01) | LOC: SPT 17:17 | PROVIDERS: PCP Nurse Practitioner; Visit Provider Specialist | DX: Z46.89 Encounter for fitting and adjustment of other specified devices (principal); S52.591D Other fractures of lower end of right radius, subsequent encounter for closed fracture with routine healing; X58.XXXD Exposure to other specified factors, subsequent encounter | CPT/HCPCS: 97760; L3982 ==

== ENCOUNTER → 2024-08-31 14:17 | Outpatient (BNVA) | payer MEDICARE, MEDICAID, SELFPAY | PROVIDERS: PCP Nurse Practitioner; Visit Provider Specialist | DX: S52.571G Other intraarticular fracture of lower end of right radius, subsequent encounter for closed fracture with delayed healing (principal); Y99.9 Unspecified external cause status | CPT/HCPCS: 73110; 99214 ==

== ENCOUNTER → 2024-09-05 12:36 | Outpatient (BNVA) | payer MEDICARE, MEDICAID, SELFPAY | PROVIDERS: PCP Nurse Practitioner; Visit Provider Nurse Practitioner | DX: I10 Essential (primary) hypertension (principal); Z96.89 Presence of other specified functional implants | CPT/HCPCS: 71046 ==

== ENCOUNTER → 2024-09-12 11:05 | Outpatient (BNVA) | payer MEDICARE, MEDICAID, SELFPAY | PROVIDERS: PCP Nurse Practitioner; Visit Provider Nurse Practitioner | DX: R05.9 Cough, unspecified (principal); J98.11 Atelectasis; J90 Pleural effusion, not elsewhere classified | CPT/HCPCS: 71046; 80053; 85025 ==

== ENCOUNTER → 2024-09-14 10:53 | Outpatient (BNVA) | payer MEDICARE, SELFPAY | PROVIDERS: PCP Nurse Practitioner; Visit Provider Specialist | DX: S52.571P Other intraarticular fracture of lower end of right radius, subsequent encounter for closed fracture with malunion; X58.XXXD Exposure to other specified factors, subsequent encounter | CPT/HCPCS: 73110; 99204 ==

== ENCOUNTER 2024-09-15 14:50 | Observation (INO) | payer MEDICARE, SELFPAY ==
[2024-09-15] VITALS (76 sets, daily range): BP systolic 103–182; BP diastolic 68–105; PULSE 64–90; RESP 8–24; TEMP 35.8–36.6; O2SAT 84–100
[2024-09-15] MEDS: sodium chloride 0.9% 1,000 ML 30 ML IV (07:06)
[2024-09-15] MEDS: acetaminophen 1,000 MG/100 ML PIGGYBACK 400 MG IV (07:08)
[2024-09-15] MEDS: CELEcoxib 200 mg Capsule 400 MG PO (07:10)
--- NOTE | 2024-09-15 07:11 | P.HPUD_ITS ---
Surgery/Procedure H&P Update DATE OF PROCEDURE: September 15, 2024 DATE H&P PERFORMED: 09/12/24 H&P UPDATE INFORMATION: I have reviewed H&P completed within last 30 days, I have examined patient prior to procedure, No changes to prior documentation and H&P is in [facility] [place] on date indicated PLANNED PROCEDURE: Operation Date: 09/15/24 08:10 Proposed Procedures p ORIF Wrist Distal Radius(Right) - Jennifer Gunter MD Related Problem List Diagnoses (1) Fracture of radius, distal, left, closed: Qualifiers: Encounter type: subsequent encounter Fracture morphology: other intra- articular Fracture healing: with delayed healing Qualified Code(s): S52.572G - Other intraarticular fracture of lower end of left radius, subsequent encounter for closed fracture with delayed healing
[2024-09-15] MEDS: VANCOMYCIN ADD-Vantage 1,000 MG in 0.9% NaCl ADD-Vantage 250 ML 250 MG IV (07:20)
--- NOTE | 2024-09-15 07:31 | P.ANESASSM_ITS ---
Pre-Anesthetic Assessment Height/Weight: Height 1.73 m Weight 65.771 kg Temp Pulse Resp BP Pulse Ox O2 Del Method 97 F L 90 16 135/88 95 Room Air 09/15/24 07:24 09/15/24 07:24 09/15/24 07:24 09/15/24 07:24 09/15/24 07:24 09/15/24 07:24 Operation Date: 09/15/24 08:10 Proposed Procedures p ORIF Wrist Distal Radius(Right) - Jennifer Gunter MD Familial anesthetic complications: none Was Beta Milli taken within 24 hours: Yes Was Clonidine taken within 24 hours: N/A Last intake: Intake Last Liquid Date 09/14/24 Last Liquid Time 00:00 Last Solid Date 09/14/24 Last Solid Time 23:00 Social Tobacco and No alcohol Exam alert, oriented x 3, clear to auscultation bilaterally and regular rate & rhythm Airway Dentition: other (missing) Pulmonary Chronic Obstructive Pulmonary Disease recent pneumonia this month - antibiotics completed CV/HEM Coronary Artery Disease and Hypertension Metabolic Thyroid Disease b12 def Musc/skel Fibromyalgia Anesthetic Plan ASA status: 3 Anesthesia: General Risk of > 500 ml blood loss (7ml/kg in children): No Medications/Allergies Home Medications Medication Instructions Recorded Confirmed Last Taken Type potassium gluconate 595 mg (99 mg) 595 mg PO TID@08,,03/12/20 09/14/24 09/14/24 History tablet Duoderm #10 ea 08/06/21 09/14/24 Unknown Rx E0748 Bone Growth Stimulator #1 ea 06/09/23 09/14/24 Unknown Rx CAM boot #1 ea 12/02/23 09/14/24 Unknown Rx ASO brace #1 ea 12/31/23 09/14/24 Unknown Rx syringe with needle 3 mL 25 gauge #5 ea 03/15/24 09/14/24 Unknown Rx x 1 (BD Luer-Rae Syringe) ergocalciferol (vitamin D2) 1,250 50,000 unit PO Q7D #12 caps 06/26/24 09/14/24 09/11/24 Rx mcg (50,000 unit) capsule baclofen 10 mg tablet See Rx Instructions .Route 07/18/24 09/15/24 09/15/24 Rx .COMPLEX #360 tabs carvedilol 6.25 mg tablet (Coreg) 6.25 mg PO Q12H #180 tabs 07/18/24 09/15/24 09/15/24 Rx cyanocobalamin (vitamin B-12) 1,000 mcg IM .monthly #2 mL 07/18/24 09/14/24 Unknown Rx 1,000 mcg/mL injection solution fenofibrate micronized 134 mg 134 mg PO DAILY@15 #90 caps 07/18/24 09/14/24 09/14/24 Rx capsule gabapentin 800 mg tablet 800 mg PO TID #360 tabs 07/18/24 09/15/24 09/15/24 Rx glycopyrrolate 1 mg tablet 1 mg PO TID #270 tabs 07/18/24 09/15/24 09/15/24 Rx levothyroxine 50 mcg tablet 50 mcg PO DAILY@1500 #90 tabs 07/18/24 09/14/24 09/14/24 Rx linaclotide 145 mcg capsule 145 mcg PO BEDTIME #90 caps 07/18/24 09/14/24 Unknown Rx (Linzess) paroxetine HCl 30 mg tablet 30 mg PO DAILY #90 tabs 07/18/24 09/14/24 09/14/24 Rx Fast form splint, right wrist #1 ea 08/17/24 09/14/24 Unknown Rx meclizine 25 mg tablet 25 mg PO DAILY PRN nausea and 08/26/24 09/14/24 Unknown Rx vomiting #30 tabs ualnhci-xzpadghrgvkou-rcqlnnbf 250 1 tab PO DIRECTED 09/14/24 09/14/24 09/14/24 History mg-250 mg-65 mg tablet (Excedrin Extra Strength) Allergies Allergy/AdvReac Type Severity Reaction Status Date / Time atorvastatin [From Lipitor] Allergy Unknown known Verified 09/14/24 10:54 ezetimibe [From Zetia] Allergy Unknown unknown Verified 09/14/24 10:54 rosuvastatin [From Crestor] Allergy Unknown unknown Verified 09/14/24 10:54 Uzxgzjf-RRC-GdB Reductase Allergy Unknown Unknown Verified 09/14/24 10:54 Inhibitor [Zbinmll-Tcw-Wwg Reductase Inhibitor] Sulfa (Sulfonamide Allergy Unknown Unknown Verified 09/14/24 10:54 Antibiotics) sumatriptan [From Imitrex] Allergy Unknown known Verified 09/14/24 10:54 IV contrast dye Allergy ALGY-Anaphy Uncoded 09/14/24 10:54 laxis Current Medications Generic Name Dose Route Start Last Admin Trade Name Jake PRN Reason Stop Dose Admin Sodium Chloride 1,000 mls @ 30 mls/hr 09/15/24 06:45 09/15/24 07:06 Sodium Chloride 0.9% IV 09/16/24 06:44 30 mls/hr .Q24H JOSE ALFREDO Administration Vancomycin HCl 1,000 mg/ 250 mls @ 250 mls/hr 09/15/24 06:32 09/15/24 07:20 Sodium Chloride IV 09/15/24 07:31 250 mls/hr [employer] AND [employer]ILL BASED [employer] MANAGER ONE Administration Protocol [facility] Anesthesia Medical History Pneumonia COPD (chronic obstructive pulmonary disease) Dehydration Hyperkalemia Acute kidney injury superimposed on CKD Altered mental status Anxiety, generalized CHF (congestive heart failure), NYHA class III Constipation, slow transit 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 CAD (coronary artery disease) Vitamin B12 deficiency Essential (primary) hypertension Gastric reflux Fibromyalgia muscle pain Osteopenia of multiple sites Chronic bilateral low back pain with bilateral sciatica Vitamin D deficiency Mixed hyperlipidemia Adult onset hypothyroidism Hypotension, unspecified Neuropathic pain of both legs Surgical History History of back surgery History of cholecystectomy History of tonsillectomy History of hysterectomy Family History Other Arthritis Coronary artery disease involving [place] coronary artery of [place] heart with unstable angina pectoris Diabetes Hypertension Thyroid disease Social History Smoking and tobacco/nicotine status: current every day tobacco/nicotine user Second hand smoke exposure: Yes Alcohol intake: never Substance/Drug Use: unknown Adopted: No Caregiver/support person: Yes Lives independently: No Household members: family Housing: House Marital status: service: No Current occupational status: disabled Do you think of yourself as: Straight/Heterosexual Current gender identity: Female Data Anesthesia Cardiac Studies: Echocardiogram Ultrasound 03/01/21
[2024-09-15] MEDS: BUPivacaine 0.5% INJ 10 mL INJECTION (08:49)
[2024-09-15] MEDS: ceFAZolin 1,000 mg SDV 1000 MG IRRIGATION (08:50)
[2024-09-15] MEDS: ceFAZolin 2,000 mg SDV 2000 MG IVP (09:00)
--- NOTE | 2024-09-15 10:34 | PM.OP ---
Operative Report Date of procedure: September 15, 2024 Pre-op diagnosis: Comminuted intra-articular right distal radius fracture with early malunion Post-op diagnosis: Comminuted intra-articular right distal radius fracture with early malunion Post-op findings: Comminuted intra-articular distal radius fracture with significant bony void requiring bone grafting. Malunion. Procedure done: Takedown of malunion right wrist followed by open reduction internal fixation of distal radius fracture, intra-articular and comminuted, with allograft. Implants: The [place] volar distal radius short narrow 2 hole plate, and [place] DBM plus putty with cancellous bone chips as bone graft Specimens removed/disposition: None Pathology: None Surgeon: Jennifer Gunter MD Inspector Wreath: Kristen Mcpherson Inspector Wreath: Who services were required for positioning, maintenance of fracture reduction, retraction, and closure Anesthesia: General (Per LMA, ASA 3) Estimated blood loss (mL): 4 Tourniquet time (min): 62 (At 250 mmHg) IV fluids (mL): 900 Urine output (mL): 0 (No Zimmerman) Complications: None Findings: Early malunion with significant shortening, comminution, volar prominence secondary to healing. Condition: stable Disposition: PACU (Then return to same-day surgery for discharge to home) Brief History: This 64-year-old woman initially presented to the office following an intra-articular comminuted right distal radius fracture. The patient was seen and evaluated at her first visit, and at that time, she was sick to her stomach secondary to pain . The patient initially fell backwards landing on her outstretched arm. Her initial date of injury was August 14, 2024. Upon initial evaluation, the fracture was felt to be somewhat unstable, but it was in acceptable position for healing. The patient wanted to avoid surgical intervention. Therefore, she was followed up approximately 2 weeks following her initial visit, and the fracture had collapsed and was no longer acceptable for healing. At that time, she was coughing with lung congestion, and she was started on antibiotics. She saw her primary care provider 1 week later, and it was felt that the pneumonia had not cleared enough for surgical intervention, and she was delayed another week. At this point, she presents 1 month following her fracture with early malunion, and plans are made for takedown of this malunion with open reduction internal fixation to follow. Risks and complications of the surgery were explained to the patient and her friend. Consents were signed in the office. Questions were answered. Procedure: Patient was brought to the operating theater, and after undergoing adequate general anesthesia, LMA, ASA 3, the patient's right upper extremity was prepped and draped in usual fashion utilizing DuraPrep.? A supplemental block was placed per anesthesia postoperatively.? The patient had a tourniquet placed high on the arm prior to prepping and draping.? Following prepping and draping, the arm was exsanguinated and the tourniquet was elevated.? Total tourniquet time was 62 minutes at 250 mmHg.? Prior to commencement of the surgical procedure, a surgical pause was performed.? At the time of the surgical pause, we confirmed the site and side of surgery as well as the patient's identity and preoperative surgical markings.? We also confirmed availability of equipment and appropriate preoperative IV antibiotics which was Ancef 2 g.? Patient also received 1 g of vancomycin secondary to a history of MRSA. Fluoroscopy was also brought into position so that we could visualize the fracture and hardware throughout the surgical procedure.? The fracture was evaluated prior to tourniquet elevation. Following elevation of the tourniquet as well as the surgical pause, appropriate plate was chosen. The skin was marked for appropriate incision length and location. An incision was made along the palmaris longus and continued down onto the volar surface of the radius.? Care was taken to avoid injury throughout the surgical procedure to the median nerve as well as to the radial artery.? The flexor carpi radialis was retracted medially.? We were able to essentially elevate the sheath of the flexor carpi radialis, and then I was able to place my finger directly onto the distal radius.? For the most part, the patient did her own dissection at the time of her injury, but there was noted to be significant scarring along the path to the distal radius. Soft tissues were elevated off the distal radius to allow access to the fracture and also to the volar aspect of the distal radial shaft.? There was noted to be early healing particularly of the volar prominence in the distal radius. This was evaluated using a dental pick and a Belding. We were able to open the fracture and there was significant fibrous soft tissue inside of the bone and there was early healing of the fracture. This soft tissue and fracture callus was removed. The area was irrigated. Bone graft consisting of the [place] DBM plus putty with cancellous bone chips was then placed into the void in the bone. Prior to placement of this bone graft, a bone tamp was used to elevate the dorsal aspect of the fracture which was significantly depressed preoperatively. Fracture was then reduced and held in position. Fluoroscopy was used to determine whether or not the reduction was appropriate.? We were able to reduce the fracture nearly anatomically following takedown of the malunion, manipulation, use of the bone tamp, and bone grafting.? We then evaluated the plate and chose the short [place] volar distal radius plate, 2 hole.? The plate was attached proximally and distally without difficulty.? A combination of locking and 1 nonlocking screw was utilized to attach the plate.? We had excellent fixation and reduction of the fracture. Fluoroscopy was utilized during the procedure.? Once the plate was fully attached, we had a near anatomic position to the distal radius and the distal radius was out to length.? Being satisfied with position, the area was copiously irrigated. There were no fascial tissues to close, and therefore, we closed the subcutaneous tissues with 3-0 interrupted Monocryl.? Skin was closed in a subcuticular fashion with 4-0 Monocryl.?Sterile dressing was then placed consisting of Dermabond, Steri-Strips, OpSite, fluffed fluffs, sterile soft roll, a volar splint, and an Juan Daniel wrap. The tourniquet was released after 62 minutes. There were no complications. There were no specimens. The procedure was well tolerated. Plan is the patient will be discharged home. Related Problem List Diagnoses (1) Fracture of radius, distal, left, closed:
[2024-09-15] MEDS: ipratropium-albuterol 3 mL Neb (11:06)
--- NOTE | 2024-09-15 12:00 | XR_ITS ---
WS: [id number] Exam: XR chest 1V portable [id number] Date/Time of Exam: 09/15/2024 12:03 PM Reason For Exam: Post op extreme lethargy Comparison 09/12/2024. LEFT basal plaque atelectasis and small pleural effusion. Remaining lung arellano are clear. No pneumot horax. Cardiomediastinal silhouette is unremarkable for technique. Heredia rods in the thoracic an d upper lumbar spine. XR/XR chest 1V portable [id number] IMPRESSION: 1. LEFT lower lobe plaque atelectasis and small LEFT basal pleural effusion.
[2024-09-15] MEDS: naloxone 0.4 mg/ml SDV 0.2 MG IVP (12:29)
[2024-09-15 12:43] LABS: ABG PCO2 55.1 mmHg (35-45); ABG PH Result 7.31 (7.35-7.45); Alveolar-Arterial Oxygen Gradi 1.9 mmHg (5-10); Arterial Blood Gas Hematocrit 40.6 % (37-47); Base Excess ABG 0.1 mmol/L (-2.0-2.0); Blood Gas Allen Test Pos; Blood Gas LPM 3.5 %; Blood Gas Operator Identificat GD; Blood Gas Sample Site Radial, left; Blood Gas Sample Type Arterial; Carboxyhemoglobin 6.4 %THgb (0.4-20.1); HCO3 ABG 27.4 mmol/L (22-26); HGB O2 Sat 86.4 % (95-100); Ionized Calcium Level - ABG 1.2 mmol/L (1.1-1.4); Methemoglobin 1.3 % (0.4-1.5); Oxygen Device NC; Oxygen Saturation ABG 93.6; PO2 ABG 68.2 mmHg (80.0-100.0); Total Hemoglobin 13.2 g/dL (12-16)
--- NOTE | 2024-09-15 13:47 | ANE.PACU2 ---
Inpatient post-anesthesia follow up: Airway intact: Yes Vital signs: Temperature 97.4 F Pulse Rate 75 Respiratory Rate 17 Blood Pressure 120/75 Pulse Oximetry 94 Oxygen Delivery Me thod Simple Mask Oxygen Flow Rate 3.5 Fraction of Inspir ed Oxygen 5 Hydration adequate: Yes Nausea and vomiting: No Pain level: 1 Mental status: Altered Additional Comments: Patient easy to moderately rousable, but continually falling back asleep less than 10 seconds after arousal with o2 sats in upper 80s despite NC. Status unchanged even with narcan 0.2 mg (last narcotic was administered before 900 even) and 40 minutes of bipap (ABG did demonstrate some respiratory acidosis with PCo2 of 55). Consulted hospitalist due to patient status for admission.
--- NOTE | 2024-09-15 13:54 | P.HP_ITS ---
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 Postoperatively, patient was moderately arousable, will fall back asleep, O2 sats in the upper 80s despite nasal cannula, was given Narcan, started on BiPAP, currently patient was seen, she is on BiPAP, resting comfortably, blood pressure 120/75, pulse is 75, temperature 97.4 she does arouse, tells me that she is doing okay, tries to remove her BiPAP mask but then falls back asleep, her sister is at bedside. Currently no evidence of respiratory distress no nasal flaring no intercostal retractions no suprasternal retractions no wheezing. She is able to move bilateral upper and lower extremities, but easily falls back asleep, difficult to do neurologic testing, pupils are dilated, reactive to light, I cannot discern any facial droop, the few words that she says to be I cannot discern any slurring of her words. Her sister at bedside helps with the history taking tells me that recently she was treated for pneumonia, she does smoke, she has not had any complaints about a month ago she fell up her stairs sustaining the right distal radial fracture she lives at home by herself family has to help with her activities of daily living such as cleaning, cooking, she used to drive up until about a month ago when she fell, currently not driving she ambulates with a walker Review of Systems General: Reports: ROS unobtainable due to mental status Medications/Allergies Home Medications Medication Instructions Recorded Confirmed Last Taken Type potassium gluconate 595 mg (99 mg) 595 mg PO TID@08,,03/12/20 09/14/24 09/14/24 History tablet Duoderm #10 ea 08/06/21 09/14/24 Unknown Rx E0748 Bone Growth Stimulator #1 ea 06/09/23 09/14/24 Unknown Rx CAM boot #1 ea 12/02/23 09/14/24 Unknown Rx ASO brace #1 ea 12/31/23 09/14/24 Unknown Rx syringe with needle 3 mL 25 gauge #5 ea 03/15/24 09/14/24 Unknown Rx x 1 (BD Luer-Rae Syringe) ergocalciferol (vitamin D2) 1,250 50,000 unit PO Q7D #12 caps 06/26/24 09/14/24 09/11/24 Rx mcg (50,000 unit) capsule baclofen 10 mg tablet See Rx Instructions .Route 07/18/24 09/15/24 09/15/24 Rx .COMPLEX #360 tabs carvedilol 6.25 mg tablet (Coreg) 6.25 mg PO Q12H #180 tabs 07/18/24 09/15/24 09/15/24 Rx cyanocobalamin (vitamin B-12) 1,000 mcg IM .monthly #2 mL 07/18/24 09/14/24 Unknown Rx 1,000 mcg/mL injection solution fenofibrate micronized 134 mg 134 mg PO DAILY@15 #90 caps 07/18/24 09/14/24 09/14/24 Rx capsule gabapentin 800 mg tablet 800 mg PO TID #360 tabs 07/18/24 09/15/24 09/15/24 Rx glycopyrrolate 1 mg tablet 1 mg PO TID #270 tabs 07/18/24 09/15/24 09/15/24 Rx levothyroxine 50 mcg tablet 50 mcg PO DAILY@1500 #90 tabs 07/18/24 09/14/24 09/14/24 Rx linaclotide 145 mcg capsule 145 mcg PO BEDTIME #90 caps 07/18/24 09/14/24 Unknown Rx (Linzess) paroxetine HCl 30 mg tablet 30 mg PO DAILY #90 tabs 07/18/24 09/14/24 09/14/24 Rx Fast form splint, right wrist #1 ea 08/17/24 09/14/24 Unknown Rx meclizine 25 mg tablet 25 mg PO DAILY PRN nausea and 08/26/24 09/14/24 Unknown Rx vomiting #30 tabs zoawoth-uekutuvijilad-yetyukyg 250 1 tab PO DIRECTED 09/14/24 09/14/24 09/14/24 History mg-250 mg-65 mg tablet (Excedrin Extra Strength) oxycodone 5 mg tablet 5 mg PO Q4H PRN pain 7 days #30 09/15/24 Unknown Rx tabs Allergies Allergy/AdvReac Type Severity Reaction Status Date / Time atorvastatin [From Lipitor] Allergy Unknown known Verified 09/14/24 10:54 ezetimibe [From Zetia] Allergy Unknown unknown Verified 09/14/24 10:54 rosuvastatin [From Crestor] Allergy Unknown unknown Verified 09/14/24 10:54 Rnadbvo-FQW-JiD Reductase Allergy Unknown Unknown Verified 09/14/24 10:54 Inhibitor [Vdvfutp-Vju-Nyt Reductase Inhibitor] Sulfa (Sulfonamide Allergy Unknown Unknown Verified 09/14/24 10:54 Antibiotics) sumatriptan [From Imitrex] Allergy Unknown known Verified 09/14/24 10:54 IV contrast dye Allergy ALGY-Anaphy Uncoded 09/14/24 10:54 laxis PFSH Acute PFSH: Medical History Pneumonia COPD (chronic obstructive pulmonary disease) Dehydration Hyperkalemia Acute kidney injury superimposed on CKD Altered mental status Anxiety, generalized CHF (congestive heart failure), NYHA class III Constipation, slow transit 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 CAD (coronary artery disease) Vitamin B12 deficiency Essential (primary) hypertension Gastric reflux Fibromyalgia muscle pain Osteopenia of multiple sites Chronic bilateral low back pain with bilateral sciatica Vitamin D deficiency Mixed hyperlipidemia Adult onset hypothyroidism Hypotension, unspecified Neuropathic pain of both legs Surgical History History of back surgery History of cholecystectomy History of tonsillectomy History of hysterectomy Family History Other Arthritis Coronary artery disease involving [place] coronary artery of [place] heart with unstable angina pectoris Diabetes Hypertension Thyroid disease Social History Smoking and tobacco/nicotine status: current every day tobacco/nicotine user Second hand smoke exposure: Yes Alcohol intake: never Substance/Drug Use: unknown Adopted: No Caregiver/support person: Yes Lives independently: No Household members: family Housing: House Marital status: service: No Current occupational status: disabled Do you think of yourself as: Straight/Heterosexual Current gender identity: Female Vitals/I&O/Wt Last Vital Signs Temp 97.4 F L 09/15/24 12:16 Pulse 75 09/15/24 12:16 Resp 17 09/15/24 12:16 BP 120/75 09/15/24 12:16 Pulse Ox 94 09/15/24 13:06 O2 Del Method Simple Mask 09/15/24 12:16 O2 Flow Rate 3.5 09/15/24 12:16 FiO2 5 09/15/24 13:06 09/14/24 09/15/24 09/15/24 22:59 06:59 14:59 Intake Total 450 / 450 Output Total / Balance 446 / 446 Weight last 48 hrs Weight 65.771 kg Physical Exam Const: COMMON NORMALS: no acute distress EXAM LIMITATIONS: altered mental status ORIENTATION/CONSCIOUSNESS: Yes awake, Yes oriented to person and Yes confused; not oriented to place and not oriented to time HENMT: COMMON NORMALS: normocephalic HEAD & SCALP: normocephalic Eye: COMMON NORMALS: Equal, round and reactive pupils present Neck/C-Spine: COMMON NORMALS: no JVD Resp: COMMON NORMALS: normal respiratory effort, No retractions, No use of accessory muscles and clear to auscultation bilaterally AUSCULTATION: clear to auscultation bilaterally Cardio: COMMON NORMALS: regular rate, regular rhythm, S1 normal heart sound present and S2 normal heart sound present RATE: regular rate RHYTHM: regular rhythm HEART SOUNDS: S1 normal heart sound present and S2 normal heart sound present GI: COMMON NORMALS: Normal to inspection, nondistended, normoactive bowel soun ds present, Soft to palpation and non-tender Extremity: COMMON NORMALS: no calf tenderness and no pedal edema A&P Assessment and plan (1) Acute encephalopathy: (2) Acute respiratory failure with hypoxia and hypercapnia: Plan Acute encephalopathy -Etiology unclear at this time -Likely the effect of anesthetic, hypercarbic respiratory failure -Monitor mentation -Neurochecks -NIH stroke scale -Aspiration precautions -Blood work ordered including CBC, CMP, TSH, troponin series, BNP, CT head Acute hypoxic hypercapnic respiratory failure -With underlying COPD, current smoker Plan -Will monitor in the ICU closely -Continue BiPAP, can wean as tolerated -DuoNeb -Budesonide -Full code -Lovenox for DVT prophylaxis Further interventions will be made based on clinical progress, blood testing, imaging results Attestations Medical Necessity Statement*: Patient requires hospitalization, outpatient with observation, for acute hypoxic respiratory failure with hypoxia and hypercapnia, acute encephalopathy Diagnoses Acute encephalopathy G93.40 Acute respiratory failure with hypoxia and hypercapnia J96.01; J96.02
--- NOTE | 2024-09-15 14:41 | PC.NURSE ---
Arrived to IC, responds with sternal rub responds 2 words then back to eyes closed with good respirations
[2024-09-15] MEDS: enoxaparin 40 mg/0.4 mL Syringe SUBCUT (14:53)
[2024-09-15] MEDS: pantoprazole 40 mg SDV IVP (14:53)
[2024-09-15] MEDS: AZITHROMYCIN ADD-Vantage 500 MG in 0.9% NaCl ADD-Vantage 250 ML 250 MG IV (14:53)
[2024-09-15] MEDS: cefTRIAXone 1,000 mg SDV 1000 MG IVP (14:54)
--- NOTE | 2024-09-15 15:47 | ECG_ITS ---
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 Measurements Intervals [place] Rate: 66 P: 66 GA: 160 QRS: 3 QRSD: 87 T: 32 QT: 392 QTc: 413 Interpretive Statements SINUS RHYTHM Compared to ECG 10/16/2022 16:10:59 No significant changes Electronically Signed On 09-17-2024 10:38:31 NAPRAPATH by Sumanth Purcell M.D. [email or web address]
[2024-09-15] MEDS: ipratropium-albuterol 3 mL Neb INHALATION ×3 (15:54→23:39)
[2024-09-15 16:33] LABS: Basophils % 0.1 %; Hematocrit 42.6 % (36-47); Lymphocytes # 0.5 10^3/uL (0.8-4.8); Lymphocytes % 4.7 %; Mean Corpuscular HGB Conc 30.8 g/dL (30-55); Mean Corpuscular Hemoglobin 32.4 pg (27-33); Mean Corpuscular Volume 105.4 fl (85-98); Mean Platelet Volume 11.2 fL (7.4-10.4); Monocytes # 0.2 10^3/uL (0.2-0.9); Monocytes % 1.4 %; Neutrophils # 9.77 10^3/uL (1.8-7.7); Neutrophils % 93.5 %; Nucleated Red Blood Cells % 0 %; Platelet Count 236 10^3/cmm (157-399); Red Blood Count 4.04 10^6/uL (3.85-5.65); Red Cell Distribution Width 16.7 % (12.1-15.1); White Blood Count 10.45 10^3/uL (3.29-11.43)
[2024-09-15 16:51] LABS: INR 0.94 (0.8-1.2)
[2024-09-15 16:54] LABS: D Dimer 1.49 ug/mLFEU (0-0.59)
[2024-09-15 16:56] LABS: Lactic Sepsis W/Reflex 0.7 mmol/L (0.5-2.2)
[2024-09-15 17:06] LABS: Troponin(5th) Baseline 19 ng/L (0-10)
[2024-09-15 17:08] LABS: Covid PCR NEGATIVE (Negative); Influenza A NEGATIVE (Negative); Influenza B NEGATIVE (Negative); Respiratory Syncytial Virus Ce NEGATIVE (Negative)
[2024-09-15 17:12] LABS: Procalcitonin 0.05 ng/mL (0-0.5); Thyroid Stimulating Hormone 0.49 uIU/mL (0.27-4.20)
[2024-09-15 17:24] LABS: Alanine Aminotransferase 7 U/L (0-33); Albumin Level 3.4 g/dL (3.5-5.2); Alcohol Level < 10 mg/dL (0-10); Alkaline Phosphatase 54 U/L (35-105); Anion Gap 13.2 (5-19); Aspartate Amino Transferase 20 U/L (0-32); Blood Urea Nitrogen 16 mg/dL (8-23); Calcium 8.8 mg/dL (8.5-10.5); Carbon Dioxide 27 mmol/L (22-29); Chloride 108 mmol/L (98-107); Creatinine Clr Calc Pharmacy 67.0054; Globulin 2.6 g/dL (1.3-4.6); Glomerular Filtration Rate 63.2 mL/min (90-130); Glucose 117 mg/dL (65-115); Osmolality Calculated 300 mOsm/kg (285-295); Phosphorus 3.6 mg/dL (2.5-4.5); Potassium 4.2 mmol/L (3.5-5.1); Sodium 144 mmol/L (136-145); Total Bilirubin 0.2 mg/dL (0.15-1.2)
--- NOTE | 2024-09-15 17:25 | XR_ITS ---
WS: [id number] Exam: XR wrist RT 2V [id number] Date/Time of Exam: 09/15/2024 5:25 PM Reason For Exam: JOSE PICS AP and lateral C-arm images of the RIGHT wrist are obtained. There is volar plate and screw fixation involving a comminuted fracture of the distal radius. Fracture alignment appears satisfactory for [place] pan[place]
--- NOTE | 2024-09-15 17:37 | PM.MISC ---
Miscellaneous Note Purpose of Documentation: Postoperative pulmonary issues Note: I spoke with Dr. Smith who admitted the patient postoperatively at the request of anesthesia. He notes that she is improving and will likely be discharged home tomorrow. Labs are pending. I have advised her that I am out of town beginning this evening, but I will ask my nurse practitioner to visit the patient tomorrow.
[2024-09-15 19:14] LABS: Troponin 5 2HR 9.75 ng/L (0-10)
[2024-09-15 19:15] LABS: Troponin 5 2HR Delta -9.25 ABS# (0-10)
[2024-09-15] MEDS: budesonide 0.5 mg/2 mL Neb INHALATION (19:32)
--- NOTE | 2024-09-15 19:52 | PC.NURSE ---
Temperature Patient temperature 96.4F axillary. Multiple warm blankets placed on patient.
[2024-09-15 19:59] LABS: Glucose Point of Care 107 mg/dL (70-110)
--- NOTE | 2024-09-15 21:35 | PC.NURSE ---
Physician Communication No void recorded for patient since being in ICU. Bladder scan performed revealing 359 ml of urine retained. Additionally, patient opening eyes to pressure, grunting in response to questions, and not following commands. Patient unsafe to swallow commands. Dr. Tolentino notified; orders received to insert a barnes catheter and to change diet to NPO.
[2024-09-15 22:47] LABS: Bilirubin Urine Negative (Negative); Blood Urine Negative (Negative); Glucose Urine UA Negative (Normal); Ketones Urine Negative (Negative); Leukocyte Esterase Urine Negative (Negative); Nitrate Urine Negative (Negative); Protein Urine Negative (Negative); Specific Gravity, Urine 1.029 (1.005-1.030); Urine Appearance Clear (CLEAR); Urine Color Yellow (Yellow); pH Urine 5.5 (5-7)
[2024-09-15 22:49] LABS: Add Urine Microscopic? YES; Bacteria Urine None Seen /hpf; RBC Urine 0-2 /hpf (0-2); Squamous Epithelial Cell Urine 0-5 /hpf (0-5); WBC Urine 0-5 /hpf (0-5)
[2024-09-15 22:54] LABS: Amphetamines Screen Urine Negative (Negative); Barbiturates Screen Urine Negative (Negative); Benzodiazepines Screen Urine Negative (Negative); Cocaine Screen Urine Negative (Negative); Opiate Screen Urine Negative (Negative); PCP Screen Urine Negative (Negative); THC Screen Urine Negative (Negative)
[2024-09-15 23:21] LABS: Calcium Oxalate Crystals Urine 15-25 /hpf
[2024-09-16] VITALS (37 sets, daily range): BP systolic 122–169; BP diastolic 76–101; PULSE 71–119; RESP 10–22; TEMP 36.6–37.1; O2SAT 90–100; BMI 23.1
[2024-09-16 00:35] LABS: Glucose Point of Care 102 mg/dL (70-110)
--- NOTE | 2024-09-16 02:05 | CTR_ITS ---
PROCEDURE INFORMATION: Exam: CT Head Without Contrast Exam date and time: 09/16/2024 1:59 AM Age: 64 years old Clinical indication: Altered mental status/memory loss; Additional info: AMS TECHNIQUE: Imaging protocol: Computed tomography of the head without contrast. Radiation optimization: All CT scans at this facility use at least one of these dose optimization techniques: automated exposure control; mA and/or kV adjustment per patient size (includes targeted exams where dose is matched to clinical indication); or iterative reconstruction. COMPARISON: CT head wo con 10/16/2022 3:30 PM RADIATION DOSE METRICS: Total DLP (mGy-cm): 1045.38 FINDINGS: Brain: No acute intracranial hemorrhage or mass effect. There is mild decreased attenuation in the periventricular white matter, likely from microvascular disease. No definite acute infarct by CT. MRI would be more sensitive/specific for detection, as clinically directed. Cerebral ventricles: Ventricle size is normal for age. Paranasal sinuses: Included paranasal sinuses are essentially clear. Mastoid air cells: No significant acute finding. Bones: No definite acute skull fracture. Soft tissues: There appears to be some soft tissue swelling lateral to the left orbit. Vasculature: Vascular calcifications in the internal carotid arteries. CT/CT head wo con* [id number] IMPRESSION: 1. No acute intracranial hemorrhage or mass effect. 2. Changes of microvascular disease. 3. No definite acute infarct by CT, see above. 4. Other findings discussed above.
[2024-09-16] MEDS: ipratropium-albuterol 3 mL Neb INHALATION ×2 (03:24→07:39)
[2024-09-16 03:48] LABS: Basophils % 0.1 %; Hematocrit 40.8 % (36-47); Lymphocytes # 0.9 10^3/uL (0.8-4.8); Lymphocytes % 8.4 %; Mean Corpuscular HGB Conc 31.1 g/dL (30-55); Mean Platelet Volume 11.1 fL (7.4-10.4); Monocytes # 0.8 10^3/uL (0.2-0.9); Monocytes % 7.4 %; Neutrophils # 8.56 10^3/uL (1.8-7.7); Neutrophils % 83.7 %; Nucleated Red Blood Cells % 0 %; Platelet Count 226 10^3/cmm (157-399); Red Blood Count 3.85 10^6/uL (3.85-5.65); Red Cell Distribution Width 16.8 % (12.1-15.1); White Blood Count 10.23 10^3/uL (3.29-11.43)
[2024-09-16 04:07] LABS: Alanine Aminotransferase 7 U/L (0-33); Albumin Level 3.2 g/dL (3.5-5.2); Alkaline Phosphatase 50 U/L (35-105); Aspartate Amino Transferase 16 U/L (0-32); Blood Urea Nitrogen 18 mg/dL (8-23); C Reactive Protein 8.6 mg/L (0.0-4.9); Calcium 8.4 mg/dL (8.5-10.5); Carbon Dioxide 26 mmol/L (22-29); Chloride 111 mmol/L (98-107); Creatinine Clr Calc Pharmacy 100.5082; Globulin 2.4 g/dL (1.3-4.6); Glucose 99 mg/dL (65-115); Osmolality Calculated 302 mOsm/kg (285-295); Phosphorus 2.9 mg/dL (2.5-4.5); Sodium 145 mmol/L (136-145); Total Bilirubin 0.3 mg/dL (0.15-1.2); Total Protein 5.6 g/dL (6.6-8.7)
[2024-09-16 04:21] LABS: NT Pro B Type Natriuretic Pept 876 pg/mL (0-125); Procalcitonin 0.05 ng/mL (0-0.5)
[2024-09-16 04:45] LABS: ABG PCO2 48.2 mmHg (35-45); ABG PH Result 7.38 (7.35-7.45); Arterial Blood Gas Hematocrit 38.3 % (37-47); Base Excess ABG 2.3 mmol/L (-2.0-2.0); Blood Gas Allen Test Pos; Blood Gas Operator Identificat JDB; Blood Gas Sample Site Radial, right; Blood Gas Sample Type Arterial; HCO3 ABG 28.2 mmol/L (22-26); Oxygen Device BIPAP; PO2 ABG 65.7 mmHg (80.0-100.0); PO2 FiO2 Ratio Arterial Blood 219
[2024-09-16] MEDS: levothyroxine 50 mcg Tablet PO (05:26)
[2024-09-16] MEDS: budesonide 0.5 mg/2 mL Neb INHALATION (07:39)
[2024-09-16] MEDS: carvedilol 6.25 mg Tablet PO (08:06)
[2024-09-16] MEDS: PARoxetine 20 mg Tablet 30 MG PO (08:06)
--- NOTE | 2024-09-16 09:05 | USCV_ITS ---
Viola Ennis Age: 64 Gender: F : 1960 Exam Date: 09/16/2024 09:17 Ordering Phys: Edenilson Smith MD Technologist: Exam Location: [facility] [place] Indication: BED STASIS EDEMA PROCEDURES: The venous duplex Doppler examination of both lower extremities was performed in the standard fashion. The following venous structures were evaluated: common femoral vein, profunda vein, proximal portion of the greater saphenous vein, superficial femoral vein, and the popliteal vein. In addition, the posterior tibial and peroneal trunk were evaluated. FINDINGS: Normal 2-D Doppler and augmentation and compressibility throughout the lower extremity venous structures. Additional imaging through the proximal calf veins also reveals no thrombus. Limited evaluation of the greater saphenous vein is patent with no thrombus. CONCLUSIONS No evidence of right lower extremity DVT. No evidence of left lower extremity DVT. Miah Jones MD (Electronically Signed) Final Date: 16 September 2024 10:06 S
--- NOTE | 2024-09-16 10:18 | PC.NURSE ---
patient expressed desire to have a female nurse to feel more comfortable
--- NOTE | 2024-09-16 10:32 | P.PN_ITS ---
Subjective 2 Subjective: This 64-year-old woman was brought to the hospital as an outpatient for open reduction internal fixation of a right distal radius fracture. Postoperatively, she had difficulty awakening. The medical service was consulted, and the patient was admitted to intensive care to monitor her pulmonary status. This was under observation status and the hospitalist team. Today, she feels better, is talking, and seems alert. Vitals/I&O/Wt Last Vital Signs Temp 98.7 F 09/16/24 06:00 Pulse 118 H 09/16/24 10:00 Resp 18 09/16/24 10:00 BP 147/100 09/16/24 10:00 Pulse Ox 90 09/16/24 10:00 O2 Del Method Nasal Cannula 09/16/24 07:25 O2 Flow Rate 6 09/16/24 07:25 FiO2 35 09/16/24 05:45 09/15/24 09/16/24 09/16/24 22:59 06:59 14:59 Intake Total 357 / 807 Output Total 425 / 429 Balance 357 / 803 -425 / 378 Weight last 48 hrs Weight 152 lb 1.903 oz Weight 154 lb 5.177 oz Weight 145 lb Physical Exam 2 Narrative: Patient is seen in her ICU bed. She is alert and oriented. She is able to wiggle her fingers and complains of no numbness or tingling. There is minimal to no swelling. Urinary Catheter Management: Zimmerman: Cath Placed During This Visit: yes Reason for Continuing Indwelling Catheter: Acute Urinary Retention or Obstruction Urinary Catheter Date of Insertion: 09/15/24 Urinary Catheter Time of Insertion: 22:00 Data 09/16/24 03:26 09/16/24 03:26 Micro: Microbiology 09/15/24 15:52 Blood Culture - Preliminary Blood SPECIMEN COLLECTED 09/15/24 15:40 Blood Culture - Preliminary Blood SPECIMEN COLLECTED A&P Assessment and plan (1) Fracture of radius, distal, left, closed: Patient will be followed up as previously scheduled with me in the office when she is discharged from the ICU to home. Qualifiers: Encounter type: subsequent encounter Fracture morphology: other intra- articular Fracture healing: with delayed healing Qualified Code(s): S52.572G - Other intraarticular fracture of lower end of left radius, subsequent encounter for closed fracture with delayed healing Attestations 2 Medical Necessity Statement*: Per hospitalist team. Coding Level of Care Code Acute Code for Chg Fwd Diagnoses Other closed intra-articular fracture of distal end of left radius with delayed healing, subsequent encounter S52.572G Encounter type: subsequent encounter Fracture morphology: other intra-articular Fracture healing: with delayed healing
--- NOTE | 2024-09-16 10:35 | PC.NURSE ---
Assumed care of pt from GLORIA Camilo. Pt does not want to get out of bed. Educated pt on steps needed to ensure it is safe for her to go home. Pt then agreed to get out of bed to chair near lunch time.
--- NOTE | 2024-09-16 12:00 | PC.NURSE ---
Pt refusing to ambulated outside of room with PT. She stated there was too many people out there. This nurse explained to her the purpose is to see if she is safe to go home. We reassured her we would make sure she was covered for her privacy . Pt then agreed to amb with PT outside of her room
--- NOTE | 2024-09-16 12:33 | P.DS_ITS ---
Discharge Providers Date of Admission: 09/15/24 14:50 Date of Discharge: September 16, 2024 Attending Provider at Admission: Edenilson Smith MD Attending Provider at Discharge: Edenilson Smith MD Primary Care Provider: TONI Fritz Diagnoses at Discharge Discharge Diagnosis (1) Fracture of radius, distal, left, closed: Status: Acute Qualifiers: Encounter type: subsequent encounter Fracture healing: with delayed healing Fracture morphology: other intra-articular Qualified Code(s): S52.572G - Other intraarticular fracture of lower end of left radius, subsequent encounter for closed fracture with delayed healing Reason for Visit Reason for Visit: S52.571G Hospital Course Hospital Course Viola Ennis is a 64 year old female with a history of COPD, history of CHF, current smoker, CAD hypothyroidism, hyperlipidemia, CKD, who presents [facility] for Comminuted intra-articular right distal radius fracture with early malunion s/p Takedown of malunion right wrist followed by open reduction internal fixation of distal radius fracture, intra-articular and comminuted, with allograft. Postoperatively, patient was moderately arousable, will fall back asleep, O2 sats in the upper 80s despite nasal cannula, was given Narcan, started on BiPAP, currently patient was seen, she is on BiPAP, resting comfortably, blood pressure 120/75, pulse is 75, temperature 97.4 she does arouse, tells me that she is doing okay, tries to remove her BiPAP mask but then falls back asleep, her sister is at bedside. Currently no evidence of respiratory distress no nasal flaring no intercostal retractions no suprasternal retractions no wheezing. She is able to move bilateral upper and lower extremities, but easily falls back asleep, difficult to do neurologic testing, pupils are dilated, reactive to light, I cannot discern any facial droop, the few words that she says to be I cannot discern any slurring of her words. Her sister at bedside helps with the history taking tells me that recently she was treated for pneumonia, she does smoke, she has not had any complaints about a month ago she fell up her stairs sustaining the right distal radial fracture she lives at home by herself family has to help with her activities of daily living such as cleaning, cooking, she used to drive up until about a month ago when she fell, currently not driving she ambulates with a walker Patient was admitted to [facility] for acute encephalopathy, likely the effect of anesthetic, hypercarbic respiratory failure,monitored as inpatient, received BiPAP therapy, close clinical monitoring, overall mentation improved, back to baseline. On discharge I had a detailed discussion with her about smoking cessation. There was also concern for possible carbon monoxide poisoning, discussed with patient, nursing staff discussed with patient's family/daughter, to check her smoke alarms at home, advised to quit smoking, do not smoke around oxygen tanks, discharged home. Follow-up with orthopedic service as outpatient for distal left radial fracture Physical Exam Const: COMMON NORMALS: no acute distress and patient oriented x3 Resp: COMMON NORMALS: normal respiratory effort, No retractions, No use of accessory muscles and clear to auscultation bilaterally AUSCULTATION: clear to auscultation bilaterally Cardio: COMMON NORMALS: regular rate, regular rhythm, S1 normal heart sound present and S2 normal heart sound present RATE: regular rate RHYTHM: regular rhythm HEART SOUNDS: S1 normal heart sound present and S2 normal heart sound present GI: COMMON NORMALS: Normal to inspection, nondistended, normoactive bowel sounds present and non-tender Extremity: COMMON NORMALS: no pedal edema Neuro: COMMON NORMALS: patient oriented x3 Psych: COMMON NORMALS: mental status grossly normal Urinary Catheter Management: Zimmerman: Cath Placed During This Visit: yes Reason for Continuing Indwelling Catheter: Acute Urinary Retention or Obstruction Urinary Catheter Date of Insertion: 09/15/24 Urinary Catheter Time of Insertion: 22:00 Discharge Data Studies Completed and Pending Completed Studies During Hospitalization Category Date Time Status CT head wo con* [id number] Stat Cat Scan 09/16/24 02:05 Completed XR chest 1V portable [id number] Stat Exams 09/15/24 12:00 Completed XR wrist RT 2V [id number] Routine Exams 09/15/24 17:25 [place] [id number] Routine Ultrasound 09/16/24 09:05 Completed Pending at discharge Category Date Time Status Arterial Blood Gas W/O Coox AM LABS Lab 09/17/24 04:00 Ordered Arterial Blood Gas W/O Coox AM LABS Lab 09/18/24 04:00 Ordered Blood Culture Routine Lab 09/15/24 15:52 Results C Reactive Protein AM LABS Lab 09/17/24 04:00 Ordered C Reactive Protein AM LABS Lab 09/18/24 04:00 Ordered Carboxyhemoglobin, Blood Routine Lab 09/15/24 15:40 Received Complete Blood Count w/Auto AM LABS Lab 09/17/24 04:00 Ordered Complete Blood Count w/Auto AM LABS Lab 09/18/24 04:00 Ordered Comprehensive Metabolic Panel AM LABS Lab 09/17/24 04:00 Ordered Comprehensive Metabolic Panel AM LABS Lab 09/18/24 04:00 Ordered Magnesium AM LABS Lab 09/17/24 04:00 Ordered Magnesium AM LABS Lab 09/18/24 04:00 Ordered NT Pro B Type Natriuretic Pept QAM Lab 09/17/24 06:00 Ordered NT Pro B Type Natriuretic Pept QAM Lab 09/18/24 06:00 Ordered NT Pro B Type Natriuretic Pept Stat Lab 09/15/24 13:45 Uncollected Phosphorus AM LABS Lab 09/17/24 04:00 Ordered Phosphorus AM LABS Lab 09/18/24 04:00 Ordered Procalcitonin AM LABS Lab 09/17/24 04:00 Ordered Procalcitonin AM LABS Lab 09/18/24 04:00 Ordered Radiology Impressions Chest X-Ray 09/15/24 12:00 IMPRESSION: 1. LEFT lower lobe plaque atelectasis and small LEFT basal pleural effusion. Head CT 09/16/24 02:05 IMPRESSION: 1. No acute intracranial hemorrhage or mass effect. 2. Changes of microvascular disease. 3. No definite acute infarct by CT, see above. 4. Other findings discussed above. Laboratory Results WBC 10.23 10^3/uL (3.29-11.43) 09/16/24 03:26 RBC 3.85 10^6/uL (3.85-5.65) 09/16/24 03:26 Hgb 12.70 g/dL (11.27-16.99) 09/16/24 03:26 Hct 40.8 % (36-47) 09/16/24 03:26 MCV 106.0 fl (85-98) H 09/16/24 03:26 MCH 33.0 pg (27-33) 09/16/24 03:26 MCHC 31.1 g/dL (30-55) 09/16/24 03:26 RDW 16.8 % (12.1-15.1) H 09/16/24 03:26 Plt Count 226 10^3/cmm (157-399) 09/16/24 03:26 MPV 11.1 fL (7.4-10.4) H 09/16/24 03:26 Neut % (Auto) 83.7 % 09/16/24 03:26 Lymph % (Auto) 8.4 % 09/16/24 03:26 Avery % (Auto) 7.4 % 09/16/24 03:26 Eos % (Auto) 0.0 % 09/16/24 03:26 Baso % (Auto) 0.1 % 09/16/24 03:26 Neut # (Auto) 8.56 10^3/uL (1.8-7.7) H 09/16/24 03:26 Lymph # (Auto) 0.9 10^3/uL (0.8-4.8) 09/16/24 03:26 Avery # (Auto) 0.8 10^3/uL (0.2-0.9) 09/16/24 03:26 Eos # (Auto) 0.0 10^3/uL (0.0-0.8) 09/16/24 03:26 Baso # (Auto) 0.0 10^3/uL (0.0-0.1) 09/16/24 03:26 Nucleated RBC % (auto) 0 % 09/16/24 03:26 Nucleated RBCs # 0.0 /100WBC 09/16/24 03:26 PT 12.90 SECONDS (12.1-14.9) 09/15/24 15:40 INR 0.94 (0.8-1.2) 09/15/24 15:40 D-Dimer 1.49 ug/mLFEU (0-0.59) H 09/15/24 15:40 Specimen Type Arterial 09/16/24 04:32 Sample Site Radial, right 09/16/24 04:32 ABG pH 7.38 (7.35-7.45) 09/16/24 04:32 ABG pCO2 48.2 mmHg (35-45) H 09/16/24 04:32 ABG pO2 65.7 mmHg (80.0-100.0) L 09/16/24 04:32 ABG PO2/FiO2 Ratio 219 09/16/24 04:32 ABG HCO3 28.2 mmol/L (22-26) H 09/16/24 04:32 ABG O2 Saturation 93.6 09/15/24 12:22 ABG Base Excess 2.3 mmol/L (-2.0-2.0) H 09/16/24 04:32 Yuriy Test Pos 09/16/24 04:32 A-a O2 Gradient 1.9 mmHg (5-10) L 09/15/24 12:22 Hematocrit 38.3 % (37-47) 09/16/24 04:32 Hgb O2 Saturation 86.4 % (95-100) L 09/15/24 12:22 Carboxyhemoglobin 6.4 %THgb (0.4-20.1) 09/15/24 12:22 Methemoglobin 1.3 % (0.4-1.5) 09/15/24 12:22 Total Hemoglobin 13.2 g/dL (12-16) 09/15/24 12:22 Sodium 144.0 mmol/L (131-143) H 09/15/24 12:22 Potassium 4.0 mmol/L (3.5-5.0) 09/15/24 12:22 Glucose 116.0 mg/dL (70-115) H 09/15/24 12:22 Ionized Calcium 1.2 mmol/L (1.1-1.4) 09/15/24 12:22 O2 Delivery Device Bipap 09/16/24 04:32 O2 Liters/Min 3.5 % 09/15/24 12:22 FiO2 30.0 % 09/16/24 04:32 Orthopedic Cast Specialist ID [id number] 09/16/24 04:32 Sodium 145 mmol/L (136-145) 09/16/24 03:26 Potassium 4.0 mmol/L (3.5-5.1) 09/16/24 03:26 Chloride 111 mmol/L (98-107) H 09/16/24 03:26 Carbon Dioxide 26 mmol/L (22-29) 09/16/24 03:26 Anion Gap 12.0 (5-19) 09/16/24 03:26 BUN 18 mg/dL (8-23) 09/16/24 03:26 Creatinine 0.6 mg/dL (0.5-0.9) 09/16/24 03:26 GFR Calculation 101.0 mL/min (90-130) 09/16/24 03:26 Glucose 99 mg/dL (65-115) 09/16/24 03:26 POC Glucose 102 mg/dL (70-110) 09/16/24 00:17 Calculated Osmolality 302 mOsm/kg (285-295) H 09/16/24 03:26 Lactic Acid 0.7 mmol/L (0.5-2.2) 09/15/24 15:40 Calcium 8.4 mg/dL (8.5-10.5) L 09/16/24 03:26 Phosphorus 2.9 mg/dL (2.5-4.5) 09/16/24 03:26 Magnesium 2.0 mg/dL (1.7-2.3) 09/16/24 03:26 Total Bilirubin 0.3 mg/dL (0.15-1.2) 09/16/24 03:26 AST 16 U/L (0-32) 09/16/24 03:26 ALT 7 U/L (0-33) 09/16/24 03:26 Alkaline Phosphatase 50 U/L (35-105) 09/16/24 03:26 Troponin T Baseline 19 ng/L (0-10) H 09/15/24 15:40 Troponin T 120 Minute 9.75 ng/L (0-10) 09/15/24 17:52 Delta Troponin T -9.25 ABS# (0-10) L 09/15/24 17:52 Troponin T Hi Sens 6Hr 18.50 ng/L (0-10) H 09/15/24 22:27 Troponin T Hi Sens 6Hr Delta -0.50 ng/L (0-12) L 09/15/24 22:27 C-Reactive Protein 8.6 mg/L (0.0-4.9) H 09/16/24 03:26 NT-Pro-B Natriuret Pep 876 pg/mL (0-125) H 09/16/24 03:26 Total Protein 5.6 g/dL (6.6-8.7) L 09/16/24 03:26 Albumin 3.2 g/dL (3.5-5.2) L 09/16/24 03:26 Globulin 2.4 g/dL (1.3-4.6) 09/16/24 03:26 Procalcitonin 0.05 ng/mL (0-0.5) 09/16/24 03:26 TSH 0.49 uIU/mL (0.27-4.20) 09/15/24 15:40 Urine Color Yellow (Yellow) 09/15/24 22:30 Urine Appearance Clear (CLEAR) 09/15/24 22:30 Urine pH 5.5 (5-7) 09/15/24 22:30 Ur Specific Victor 1.029 (1.005-1.030) 09/15/24 22:30 Urine Protein Negative (Negative) 09/15/24 22:30 Urine Glucose (UA) Negative (Normal) 09/15/24 22:30 Urine Ketones Negative (Negative) 09/15/24 22: Urine Blood Negative (Negative) 09/15/24 22:30 Urine Nitrate Negative (Negative) 09/15/24 22:30 Urine Bilirubin Negative (Negative) 09/15/24 22:30 Urine Urobilinogen 1.0 mg/dL (Negative) 09/15/24 22:30 Ur Leukocyte Esterase Negative (Negative) 09/15/24 22:30 Urine RBC 0-2 /hpf (0-2) 09/15/24 22:30 Urine WBC 0-5 /hpf (0-5) 09/15/24 22:30 Ur Squamous Epith Cells 0-5 /hpf (0-5) 09/15/24 22:30 Calcium Oxalate Crystal 15-25 /hpf H 09/15/24 22:30 Amorphous Sediment Not Reportable 09/15/24 22:30 Urine Bacteria None seen /hpf (NONE) 09/15/24 22:30 Hyaline Casts 3.30 /lpf 09/15/24 22:30 Urine Opiates Screen Negative ng/mL (Negative) 09/15/24 22:30 Ur Barbiturates Screen Negative ng/mL (Negative) 09/15/24 22:30 Ur Phencyclidine Scrn Negative ng/mL (Negative) 09/15/24 22:30 Ur Amphetamines Screen Negative ng/mL (Negative) 09/15/24 22:30 U Benzodiazepines Scrn Negative ng/mL (Negative) 09/15/24 22:30 Urine Cocaine Screen Negative ng/mL (Negative) 09/15/24 22:30 U Marijuana (THC) Screen Negative ng/mL (Negative) 09/15/24 22:30 Ethyl Alcohol < 10 mg/dL (0-10) 09/15/24 15:40 Coronavirus (PCR) Negative (Negative) 09/15/24 15:40 Influenza A (PCR) Negative (Negative) 09/15/24 15:40 Influenza Type B (PCR) Negative (Negative) 09/15/24 15:40 RSV (PCR) Negative (Negative) 09/15/24 15:40 Vitals Last Vital Signs Temp 98.7 F 09/16/24 06:00 Pulse 118 H 09/16/24 10:00 Resp 18 09/16/24 10:00 BP 147/100 09/16/24 10:00 Pulse Ox 90 09/16/24 10:00 O2 Del Method Nasal Cannula 09/16/24 07:25 O2 Flow Rate 6 09/16/24 07:25 FiO2 35 09/16/24 05:45 Discharge Plan Discharge Patient Disposition: Home Condition: Stable Prescriptions: Continued (DME) Duoderm See Rx Instructions .Route .MEDSUPPLY Qty: 10 0RF Rx Instructions: As directed (DME) ASO brace See Rx Instructions .Route .MEDSUPPLY Qty: 1 0RF Rx Instructions: As directed (DME) BD Luer-Rae Syringe 3 mL 25 gauge x 1 syringe See Rx Instructions .ROUTE .MEDSUPPLY Qty: 5 0RF Hold Instructions: Doctor's Order Rx Instructions: monthly (DME) E0748 Bone Growth Stimulator See Rx Instructions .Route .MEDSUPPLY Qty: 1 0RF Rx Instructions: As directed (DME) CAM boot See Rx Instructions .Route .MEDSUPPLY Qty: 1 0RF Rx Instructions: As directed to HOME baclofen 10 mg tablet See Rx Instructions .ROUTE .COMPLEX Qty: 360 1RF Rx Instructions: 10mg po qam, 10mg @15:00,20mg @22:00; carvedilol [Coreg] 6.25 mg tablet 6.25 mg PO Q12H Qty: 180 1RF Rx Instructions: must administer with a meal cyanocobalamin (vitamin B-12) 1,000 mcg/mL solution 1,000 mcg IM .monthly Qty: 2 2RF fenofibrate micronized 134 mg capsule 134 mg PO DAILY@15 Qty: 90 1RF gabapentin 800 mg tablet 800 mg PO TID Qty: 360 1RF glycopyrrolate 1 mg tablet 1 mg PO TID Qty: 270 1RF levothyroxine 50 mcg tablet 50 mcg PO DAILY@1500 Qty: 90 1RF Linzess 145 mcg capsule 145 mcg PO BEDTIME Qty: 90 1RF paroxetine HCl 30 mg tablet 30 mg PO DAILY Qty: 90 1RF (DME) Fast form splint, right wrist See Rx Instructions .ROUTE .MEDSUPPLY Qty: 1 0RF Rx Instructions: As directed ergocalciferol (vitamin D2) 1,250 mcg (50,000 unit) capsule 50,000 unit PO Q7D Qty: 12 0RF Rx Instructions: on thursday meclizine 25 mg tablet 25 mg PO DAILY PRN (Reason: nausea and vomiting) Qty: 30 0RF potassium gluconate 595 mg (99 mg) Tablet 595 mg PO TID@,, Excedrin Extra Strength 250-250-65 mg Tablet 1 tab PO DIRECTED Discharge Orders: Discharge Order (Routine); Ordered 09/16/24 Ordered By: Edenilson Smith Referrals: Hitesh Pal, INDUST[employer]ASTE TREATMENT TECHNICIAN-C [Primary Care Provider] - 09/27/24 1:40 pm Jennifer Gunter MD [Physician] - 09/29/24 11:15 am Discharge Diet: Advance as tolerated and Usual diet Discharge Activity: Limit activity as instructed Patient Instructions: Prednisone (By mouth) (Prednisone Intensol, Prednicot, Deltasone, Zoila), Levofloxacin (By mouth) (Levaquin, Levaquin Leva-rina), Oxycodone, Slow Release (By mouth) (Oxycontin, Xtampza ER, Oksikodon), Acute Wound Care (DC), Opioid Safety, Post Anesthesia Care Activity Restrictions/Additional Instructions: Maintain splint until you are seen in the office. Bring your fast form back to the clinic with you for refitting and remolding. You may wash it and gentle soap and warm water prior to bringing so that it can be dry. Wiggle your fingers. Elevate and ice to your arm. -Please stop smoking -Please monitor your carbon monoxide alarm, if there is any issues please call fire department Discharge Attestations Time Spent in Discharge Care*: greater than 30 min Quality Metrics Clinical Quality Measures [ No reported AMI, CVA or VTE this stay] Coding Level of Care Code 98476 Total time (in minutes) for Discharge: 45 Diagnoses Other closed intra-articular fracture of distal end of left radius with delayed healing, subsequent encounter S52.572G Encounter type: subsequent encounter Fracture healing: with delayed healing Fracture morphology: other intra-articular
--- NOTE | 2024-09-16 13:40 | PC.NURSE ---
Discharge instructions provided. Attempted to discussed care noted on new medications, pt stated You do not need to read that or go over it with me . Waiting on Pharmacy to bring prescriptions. Pt discharged.
--- NOTE | 2024-09-16 13:50 | PC.NURSE ---
Pharmacy brought meds. Pt escorted to entrance via W/C for final discharge
[2024-09-21 15:44] LABS: Carboxyhemoglobin, Blood 7 %TOTAL HGB
== END 2024-09-16 13:40 | disposition home or self-care (01) ==
LOC: ICU 14:54
PROVIDERS: Anesthesiology; Specialist; Admitting Provider Family Medicine; PCP Nurse Practitioner; Visit Provider Family Medicine
PROC: (CPT 25609; principal; 2024-09-15 08:00)
DX: S52.571P Other intraarticular fracture of lower end of right radius, subsequent encounter for closed fracture with malunion (principal); X58.XXXD Exposure to other specified factors, subsequent encounter; J44.9 Chronic obstructive pulmonary disease, unspecified; I11.0 Hypertensive heart disease with heart failure; I50.9 Heart failure, unspecified; F17.200 Nicotine dependence, unspecified, uncomplicated; I25.10 Atherosclerotic heart disease of native coronary artery without angina pectoris; E03.9 Hypothyroidism, unspecified; N18.9 Chronic kidney disease, unspecified; M79.7 Fibromyalgia; E78.2 Mixed hyperlipidemia
CPT/HCPCS: 25609; 0241U; 36415; 36416; 36600; 51702; 70450; 71045; 73100; 76000; 80051; 80053; 80306; 80307; 81001; 82330; 82375; 82803; 82805; 82962; 83605; 83735; 83880; 84100; 84145; 84443; 84484; 85025; 85378; 85610; 86140; 87040; 93005; 93970; 94640; 94660; 96372; 96376; 97116; 97161; C1713; G0378; J0131; J0456; J0690; J0696; J1100; J1650; J2310; J2371; J2405; J2470; J2704; J3010; J3370; J3490; J7030; J7050; J7626

== ENCOUNTER → 2024-09-29 11:05 | Outpatient (BNVA) | payer MEDICARE, SELFPAY | PROVIDERS: PCP Nurse Practitioner; Visit Provider Specialist | DX: S52.571D Other intraarticular fracture of lower end of right radius, subsequent encounter for closed fracture with routine healing; X58.XXXD Exposure to other specified factors, subsequent encounter | CPT/HCPCS: 73110; 99024 ==

== ENCOUNTER → 2024-11-14 09:16 | Outpatient (BNVA) | payer MEDICARE, MEDICAID, SELFPAY | PROVIDERS: PCP Nurse Practitioner; Visit Provider Specialist | DX: S52.571D Other intraarticular fracture of lower end of right radius, subsequent encounter for closed fracture with routine healing (principal); Z98.890 Other specified postprocedural states; X58.XXXD Exposure to other specified factors, subsequent encounter | CPT/HCPCS: 73110; 99024 ==

== ENCOUNTER 2025-02-14 07:50 | Outpatient (CLI) | payer MEDICARE, MEDICAID, SELFPAY ==
--- NOTE | 2025-02-14 08:00 | US_ITS ---
WS: [id number] ULTRASOUND ABDOMEN CLINICAL INFORMATION: K59.01 - Slow transit constipation FINDINGS: Liver Size: Normal. Craniocaudal length: 15.5 cm. Echogenicity: Normal. Surface nodularity: None. Mass (size and location): None. Bile ducts Intrahepatic ducts: Normal. Common bile duct diameter: 0.5 cm. Gallbladder Prior cholecystectomy Pancreas Normal as visualized. Spleen Splenomegaly: None. Craniocaudal length: 9.1 cm. Right kidney: Small RIGHT renal cyst measuring 1.1 cm Hydronephrosis: None. Size: 10.0 cm x 4.5 cm x 4.1 cm Left kidney: Small LEFT renal cyst measuring 1.1 cm Hydronephrosis: Mild Size: 8.7 cm x 4.2 cm x 4.0 cm. Abdominal aorta and IVC Visualized portions are normal. Ascites: None. US/US abdomen complete* [id number] IMPRESSION: Technically difficult study due to body habitus and bowel gas 1. Suggestion of mild LEFT hydronephrosis. Recommend further evaluation with n oncontrast and contrast-enhanced CT abdomen pelvis 2. Small bilateral renal cysts. 3. Normal liver and spleen 4. Normal common bile duct. 5. Prior cholecystectomy
== END 2025-02-14 07:51 | disposition home or self-care (01) ==
LOC: RAD 07:51
PROVIDERS: PCP Nurse Practitioner; Visit Provider Nurse Practitioner
DX: K59.01 Slow transit constipation (principal); R93.422 Abnormal radiologic findings on diagnostic imaging of left kidney; N28.1 Cyst of kidney, acquired; Z90.49 Acquired absence of other specified parts of digestive tract
CPT/HCPCS: 76700

== ENCOUNTER 2025-03-17 13:05 | Outpatient (CLI) | payer MEDICARE, MEDICAID, SELFPAY ==
--- NOTE | 2025-03-17 13:15 | CTR_ITS ---
PROCEDURE INFORMATION: Exam: CT Abdomen And Pelvis Without Contrast Exam date and time: 03/17/2025 1:39 PM Age: 64 years old Clinical indication: Condition or disease; Other: Unspecified hydronephrosis; Prior surgery; Surgery date: 6+ months; Surgery type: Multiple spine, total hysterectomy, gb , pain pump; Additional info: N13.30 - unspecified hydronephrosis TECHNIQUE: Imaging protocol: Computed tomography of the abdomen and pelvis without contrast. Radiation optimization: All CT scans at this facility use at least one of these dose optimization techniques: automated exposure control; mA and/or kV adjustment per patient size (includes targeted exams where dose is matched to clinical indication); or iterative reconstruction. COMPARISON: CT abdomen pelvis wo con [id number] 08/26/2023 10:32 AM RADIATION DOSE METRICS: Total DLP (mGy-cm): 296.03 FINDINGS: Lungs: Mild bibasilar atelectasis. Liver: Normal. No mass. Gallbladder and biliary ducts: Status post cholecystectomy. Similar prominence of the common bile duct, likely reservoir effect from prior cholecystectomy. Pancreas: Normal. No ductal dilation. Spleen: Normal. No splenomegaly. Adrenal glands: Normal. No mass. Kidneys and ureters: Similar 1.5 cm right renal cortical cyst. Moderate left hydronephrosis. The left ureter is also dilated along its proximal to midportion. Suboptimal visualization of portions of the mid ureter due to streak artifact from adjacent spinal hardware. Stomach and bowel: Unremarkable. No obstruction. No mucosal thickening. Appendix: No evidence of appendicitis. Intraperitoneal space: Unremarkable. No free air. No significant fluid collection. Vasculature: Moderate atherosclerotic aortoiliac calcifications. No abdominal aortic aneurysm. Lymph nodes: Unremarkable. No enlarged lymph nodes. Urinary bladder: The urinary bladder is moderately distended. Reproductive: Unremarkable as visualized. Bones/joints: Severe dextroscoliosis of the thoracolumbar spine with bilateral Heredia rods and fusion at multiple levels. Streak artifact from hardware limits assessment of surrounding structures. Advanced multilevel lumbar spondylosis. Diffuse osseous demineralization. No definite acute fracture or dislocation. Soft tissues: Unremarkable. CT/CT abdomen pelvis wo con [id number] IMPRESSION: 1. Moderate left hydroureteronephrosis to the level of the left mid ureter. Portions of the ureter are not well evaluated due to streak artifact from adjacent spinal hardware. Underlying stone, stricture, or obstructing mass difficult to entirely exclude. 2. Moderately distended urinary bladder. Correlate for urinary retention. 3. Additional nonemergent findings as above are similar to prior. COMMENTS: Consistent with the [employer]'s Incidental Findings Committee white paper (J Am Jessie Radiol 2018): Any incidental renal lesion less than 1 cm or classified as too small to characterize, or any incidental cystic renal lesion characterized as simple-appearing, is likely benign. No follow-up imaging is recommended for these lesions per consensus recommendations based on imaging criteria.
== END 2025-03-17 13:06 | disposition home or self-care (01) ==
LOC: RAD 13:06
PROVIDERS: PCP Nurse Practitioner; Visit Provider Nurse Practitioner
DX: N13.30 Unspecified hydronephrosis (principal); N32.89 Other specified disorders of bladder; J98.11 Atelectasis; Z90.49 Acquired absence of other specified parts of digestive tract; R93.3 Abnormal findings on diagnostic imaging of other parts of digestive tract; N28.1 Cyst of kidney, acquired; N28.89 Other specified disorders of kidney and ureter; I70.8 Atherosclerosis of other arteries; M41.85 Other forms of scoliosis, thoracolumbar region; Z98.1 Arthrodesis status; M47.816 Spondylosis without myelopathy or radiculopathy, lumbar region; M85.80 Other specified disorders of bone density and structure, unspecified site
CPT/HCPCS: 74176

== ENCOUNTER → 2025-03-26 10:50 | Outpatient (BNVA) | payer MEDICARE, MEDICAID, SELFPAY | PROVIDERS: PCP Nurse Practitioner; Visit Provider Emergency Medicine | DX: R39.9 Unspecified symptoms and signs involving the genitourinary system (principal); R30.0 Dysuria; N76.0 Acute vaginitis; B96.89 Other specified bacterial agents as the cause of diseases classified elsewhere | CPT/HCPCS: 81000; 87086 ==

== ENCOUNTER → 2025-04-12 14:00 | Outpatient (BNVA) | payer MEDICARE, SELFPAY | PROVIDERS: PCP Nurse Practitioner; Visit Provider Nurse Practitioner | DX: I10 Essential (primary) hypertension (principal); E78.2 Mixed hyperlipidemia; E55.9 Vitamin D deficiency, unspecified; E03.8 Other specified hypothyroidism | CPT/HCPCS: 80053; 80061; 82306; 82607; 84443; 85025 ==

== ENCOUNTER 2025-05-14 10:00 | Emergency (ER) | payer MEDICARE, MEDICAID, SELFPAY ==
[2025-05-14 10:08] VITALS: BP 168/104; PULSE 76; RESP 16; TEMP 36.6; O2SAT 96; BMI 16.7
--- OUTSIDE RECORDS SUMMARY | 2025-05-14 10:12 | XMS_ITS | Clinical Summary ---
Author Organization [facility], [facility] Address [address] [place] [address] Phone Care Team Providers Care Activities Therapist Name Role Phone Dav Mayorga Primary Care Provider [phone] Encounters Date Type Department Care Team Description 04/18/2025 Orders Only [facility], [facility] [address] [place] [address] Serum creatinine above reference range 04/17/2025 Office Communication [facility], [facility] [address] [place] [address] Debi Delgado MD 04/17/2025 Transcribe Orders [facility] [address] [place] [address] Hitesh Pal ARNP Serum creatinine above reference range (Primary Dx) from Last 3 Months Social History Tobacco Use Types Packs/Day Years Used Date Smoking Tobacco: Never Assessed Comments Unknown Sex and Gender Information Value Date Recorded Sex Assigned at Not on file Legal Sex Female 1:17 PM EDT Gender Identity Not on file Sexual Orientation Not on file Plan of Treatment Health Maintenance Due Date Last Done Comments Breast Cancer Screening 1961 Colorectal Cancer Screening: Annual FOBT 2010 Colorectal Cancer Screening: Colonoscopy 2010 Colorectal Cancer Screening: Sigmoidoscopy 2010 Pneumococcal Vaccine: 50+ Ye ars (2 of 2 - PCV) 2011 08/07/2004 Influenza Vaccine (#1) 2025 Hepatitis B Vaccine Aged Out No longe r eligible based on patient's age to complete this topic Insurance [facility] PPO ([id number]) Medicaid [place] ([id number]) Care Teams Activities Therapist Relationship Specialty Start Date End Date Dav Mayorga DO [address] [place] [id number] PCP - General Family Medicine 04/17/25
--- OUTSIDE RECORDS SUMMARY | 2025-05-14 10:12 | XMS_ITS | Encounter Summary ---
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
--- OUTSIDE RECORDS SUMMARY | 2025-05-14 10:12 | XMS_ITS | Encounter Summary ---
Author Organization [facility] Address [address] [place] [address] Care Team Providers Care Clinical Dietetic Technician Name Role Phone Non-Staff, Physician Primary Care Provider Unava ilable Encounter Details Date Type Department Care Team (Latest Contact Info) Description 09/13/2002 Outpatient [facility] [address] [place] [address] Elias Chow Jr., MD [address] [place] [address] SCREENING MAMM-MAILG NEOPL-OTHER (Primary Dx) Social History Tobacco Use Types Packs/Day Years Used Date Smoking Tobacco: Never Assessed Comments Unknown Sex and Gender Information Value Date Recorded Sex Assigned at Not on file 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
--- OUTSIDE RECORDS SUMMARY | 2025-05-14 10:12 | XMS_ITS | Encounter Summary ---
Author Organization [facility] Address [address] [place] [address] Care Team Providers Care Director Digital Sales Name Role Phone Non-Staff, Physician Primary Care Provider Unava ilable Encounter Details Date Type Department Care Team (Late st Contact Info) Description 10/24/2008 Outpatient [facility] [address] [place] [address] Lelia Jacobo MD NO ADDRESS ON FILE Social History Tobacco Use Types Packs/Day Years Used Date Smoking Tobacco: Never Assessed Comments Unknown Sex and Gender Information Value Date Recorded Sex Assigned at Not on file Legal Sex Female 7:06 AM CRIMINAL JUSTICE INSTRUCTOR Gender Identity Not on file Sexual Orientation Not on file documented as of this encounter Plan of Treatment Not on file documented as of this encounter Visit Diagnoses Not on filedocumented in this encounter Care Teams Director Digital Sales Relationship Specialty Start Date End Date Non-Staff, Physician NO ADDRESS ON FILE PCP - General 04/15/12 documented as of this encounter
--- OUTSIDE RECORDS SUMMARY | 2025-05-14 10:12 | XMS_ITS | Clinical Summary ---
Author Organization [facility] Address [address] [place] [facility] [place] [address] Phone Care Team Providers Care Chief Unit Forester Name Role Phone Non-Staff, Physician Primary Care Provider Unava ilable Allergies Active Allergy Reactions Criticality Noted Date Comments Iodine Anaphylaxis High 01/27/2012 Sulfa (Sulfonamide Antibiotics) Nausea and Vomiting Low 01/27/2012 Sumatriptan Succinate Other (See Comments) 12/2011 Pt felt like she was going to have a heart attack Medications gabapentin (NEURONTIN) 400 mg Oral capsuleIndication s:Bleeding disorder Take 400 mg by mouth 3 times daily. 3 times a day Active HYDROcodone-aceta minophen (LORCET 650) 10-650 mg Oral TabIndications:Bl eeding disorder Take 1 Tab by mouth every 4 hours as needed. 3 times a day Active PARoxetine HCl (PAXIL) 20 mg Oral tabletIndications :Bleeding disorder Take 20 mg by mouth daily. Active fenofibric acid (TRILIPIX) 135 mg Oral CpDRIndications:B leeding disorder Take 135 mg by mouth daily. Active aspirin (WIL) 81 mg Oral TabIndications:Bl eeding disorder Take by mouth. Active lactulose (ENULOSE) 10 gram/15 mL Oral 20 gram/30 mL solutionIndicatio ns:Bleeding disorder Take 20 Gram by mouth 3 times daily. Active propranolol SR 24 hour (INDERAL LA) 160 mg Oral Cs24 Take 160 mg by mouth daily. Active BUTALBITAL/ASPIRI N/CAFFEINE (FIORINAL ORAL) Take by mouth. Active KETOROLAC TROMETHAMINE (TORADOL ORAL) Take by mouth. Active IRBESARTAN (AVAPRO ORAL) Take by mouth. Active levothyroxine (SYNTHROID) 25 mcg Oral tablet Take 25 mcg by mouth daily composition weatherboard applier. Active fentaNYL (DURAGESIC) 50 mcg/hr Transdermal patch Apply 1 Patch to skin as directed every third day. Active Active Problems Problem Noted Date Diagnosed Date Multiple thyroid nodules 09/08/2012 Bleeding disorder 06/17/2011 LBP radiating to both legs 04/01/2011 Scoliosis 04/01/2011 CHRONIC PAIN SYNDROME 04/01/2011 Fibromyalgia 04/01/2011 Tobacco use disorder 04/01/2011 Immunizations Immunization Administration Dates Next Due (PNEUMOVAX 23)(50 YRS UP) PN EUMOCOCCAL POLYSACCHARIDE (PPV23) 0.5 ML, IM 08/07/2004 Social History Tobacco Use Types Packs/Day Years Used Date Smoking Tobacco: Every Day Cigarettes 1 30 Smokeless Tobacco: Never Alcohol Use Standard Drinks/Week Comments No 0 (1 standard drink = 0.6 oz pur e alcohol) Comments No Sex and Gender Information Value Date Recorded Sex Assigned at Not on file Legal Sex Female 7:06 AM ORACLE WEBCENTER CONSULTANT Gender Identity Not on file Sexual Orientation Not on file Occupation Industry Job Start Date Job End Date Not on file Not on file Not on file Not on file Last Filed Vital Signs Vital Sign Reading Time Taken Comments Blood Pressure 140/82 11/17/2012 8:44 AM ORACLE WEBCENTER CONSULTANT Pulse 74 11/17/2012 8:44 AM ORACLE WEBCENTER CONSULTANT Temperature - - Respiratory Rate - - Oxygen Saturation - - Inhaled Oxygen Concentration - - Weight 66.2 kg (146 lb) 11/17/2012 8:44 AM ORACLE WEBCENTER CONSULTANT Height 162.6 cm (5' 4 ) 11/17/2012 8:44 AM ORACLE WEBCENTER CONSULTANT Body Mass Index 25.06 11/17/2012 8:44 AM ORACLE WEBCENTER CONSULTANT Plan of Treatment Health Maintenance Due Date Last Done Comments DTAP/TDAP/TD VACCINES (1 - Tdap) 1980 HPV/Cotest (21-29) 1982 HPV/Cotest (30-65) 1991 BREAST CANCER SCREENING 2001 CERVICAL CANCER SCREENING 12/04/2001 PAP SMEAR 12/04/2001 12/04/1998, 03/29/1998 COLORECTAL SCREENING 2006 Colorectal Cancer Screening 2006 FIT-DNA Q 3 years 2006 FIT/FOBT Q 1 year 2006 Flex Sig/CT Colonography Q 5 years 2006 ZOSTER VACCINE (1 of 2) 2011 INFLUENZA VACCINE (#1) 2025 RSV VACCINE (60+ or ) (1 - 1-dose 75+ series) 2036 Insurance [address] [id number] MEDICARE PART A AND B [place]ICAID [place] Care Teams Chief Unit Forester Relationship Specialty Start Date End Date Non-Staff, Physician NO ADDRESS ON FILE PCP - General 04/15/12
--- OUTSIDE RECORDS SUMMARY | 2025-05-14 10:12 | XMS_ITS | Encounter Summary ---
Author Organization [facility] Address [address] [place] [address] Care Team Providers Care Lean Six Sigma Senior Specialist Name Role Phone Non-Staff, Physician Primary Care Provider Unava ilable Encounter Details Date Type Department Care Team (Late st Contact Info) Description 05/03/2002 [facility]patient [facility] [address] [place] [address] Martell Baugh MD NO ADDRESS ON FILE MYALGIA AND MYOSITIS NOS (Primary Dx) Social History Tobacco Use Types Packs/Day Years Used Date Smoking Tobacco: Never Assessed Comments Unknown Sex and Gender Information Value Date Recorded Sex Assigned at Not on file Legal Sex Female 7:06 AM DRUM STRAIGHTENER Gender Identity Not on file Sexual Orientation Not on file documented as of this encounter Plan of Treatment Not on file documented as of this encounter Visit Diagnoses Diagnosis Myalgia and myositis, unspecified- Primary Mylagia and myositis, unspecified documented in this encounter Care Teams Lean Six Sigma Senior Specialist Relationship Specialty Start Date End Date Non-Staff, Physician NO ADDRESS ON FILE PCP - General 04/15/12 documented as of this encounter
--- OUTSIDE RECORDS SUMMARY | 2025-05-14 10:12 | XMS_ITS | Encounter Summary ---
Author Organization [facility] Address [address] [place] [address] Care Team Providers Care Industrial Maintenance Instructor Name Role Phone Non-Staff, Physician Primary Care Provider Unava ilable Encounter Details Date Type Department Care Team (Late st Contact Info) Description 06/13/2002 Outpatient [facility] [address] [place] [phone] Martell Baugh MD NO ADDRESS ON FILE MYALGIA AND MYOSITIS NOS (Primary Dx) Social History Tobacco Use Types Packs/Day Years Used Date Smoking Tobacco: Never Assessed Comments Unknown Sex and Gender Information Value Date Recorded Sex Assigned at Not on file Legal Sex Female 7:06 AM SHAVING MACHINE OPERATOR Gender Identity Not on file Sexual Orientation Not on file documented as of this encounter Plan of Treatment Not on file documented as of this encounter Visit Diagnoses Diagnosis Myalgia and myositis, unspecified- Primary Mylagia and myositis, unspecified documented in this encounter Care Teams Industrial Maintenance Instructor Relationship Specialty Start Date End Date Non-Staff, Physician NO ADDRESS ON FILE PCP - General 04/15/12 documented as of this encounter
--- OUTSIDE RECORDS SUMMARY | 2025-05-14 10:12 | XMS_ITS | Encounter Summary ---
Author Organization [facility] Address [address] [place] [address] Care Team Providers Care Ergonomist Name Role Phone Non-Staff, Physician Primary Care Provider Unava ilable Encounter Details Date Type Department Care Team (Latest Contact Info) Description 08/12/2001 Outpatient Historical [facility] Cody Lofton MD [address] [place] [address] Headache(784.0) (Primary Dx); Cervicalgia Social History Tobacco Use Types Packs/Day Years Used Date Smoking Tobacco: Never Assessed Comments Unknown Sex and Gender Information Value Date Recorded Sex Assigned at Not on file Legal Sex Female 7:06 AM HAT MARKER Gender Identity Not on file Sexual Orientation Not on file documented as of this encounter Plan of Treatment Not on file documented as of this encounter Visit Diagnoses Diagnosis Headache(784.0)- Primary Headache Cervicalgia documented in this encounter Care Teams Ergonomist Relationship Specialty Start Date End Date Non-Staff, Physician NO ADDRESS ON FILE PCP - General 04/15/12 documented as of this encounter
--- OUTSIDE RECORDS SUMMARY | 2025-05-14 10:12 | XMS_ITS | Encounter Summary ---
Author Organization [facility] Address [address] Travis: Epic Prelude [place]T [place] [address] Care Team Providers Care Dielectric Machine Operator Name Role Phone Non-Staff, Physician Primary Care Provider Unava ilable Encounter Details Date Type Department Care Team ([facility] st Contact Info) Description 08/19/2001 Outpatient Historical Claudine Swanson, Elias Herrera MD [address] [place] [address] Social History Tobacco Use Types Packs/Day Years Used Date Smoking Tobacco: Never Assessed Comments Unknown Sex and Gender Information Value Date Recorded Sex Assigned at Not on file Legal Sex Female 7:06 AM PHOTOCOMPOSING KEYBOARD OPERATOR Gender Identity Not on file Sexual Orientation Not on file documented as of this encounter Plan of Treatment Not on file documented as of this encounter Visit Diagnoses Not on filedocumented in this encounter Care Teams Dielectric Machine Operator Relationship Specialty Start Date End Date Non-Staff, Physician NO ADDRESS ON FILE PCP - General 04/15/12 documented as of this encounter
--- OUTSIDE RECORDS SUMMARY | 2025-05-14 10:12 | XMS_ITS | Encounter Summary ---
Author Organization [facility] Address [address] [address] Phone Care Team Providers Care Enterostomal Therapy Nurse Name Role Phone Dav Mayorga DO Primary Care Provider [phone] Reason for Referral * Consultation (Routine) - Authorized Specialty Diagnoses / Procedures Referred By Lyssa pyle Referred To Contact Nephrology Diagnoses Serum creatinine above reference range Hitesh Pal ARNP [address] [place] [phone] Phone: tel: fax: Debi Delgado MD [address] [address] Phone: tel: fax: Referral ID Status Reason Start Date Expiration Date Visits Requested Visits Authorized [id number] Authorized Consult and Treat 04/17/2025 04/17/2026 1 1 Encounter Details Date Type Department Care Team (Latest Contact Info) Description 04/17/2025 Transcribe Orders [facility] [address] [address] Hitesh Pal ARNP [address] [place] [phone] Serum creatinine above reference range (Primary Dx) Social History Tobacco Use Types Packs/Day Years Used Date Smoking Tobacco: Never Assessed Comments Unknown Sex and Gender Information Value Date Recorded Sex Assigned at Not on file Legal Sex Female 1:17 PM EDT Gender Identity Not on file Sexual Orientation Not on file documented as of this encounter Plan of Treatment Scheduled Referrals Name Type Priority Associated Diagnoses Order Schedule Ambulatory referral to Nephrology Outpatient Referral Routine Serum creatinine above reference range Expected: 04/18/2025, Expires: 04/17/2026 documented as of this encounter Visit Diagnoses Diagnosis Serum creatinine above reference range- Primary documented in this encounter Care Teams Enterostomal Therapy Nurse Relationship Specialty Start Date End Date Dav Mayorga DO [address] [place] [id number] PCP - General Family Medicine 04/17/25 documented as of this encounter
--- OUTSIDE RECORDS SUMMARY | 2025-05-14 10:12 | XMS_ITS | Encounter Summary ---
Author Organization [facility] Address [address] [place] [address] Care Team Providers Care Marketing Content Coordinator Name Role Phone Non-Staff, Physician Primary Care Provider Unava ilable Encounter Details Date Type Department Care Team (Late st Contact Info) Description 02/22/2002 Outpatient Historical [facility] [address] [place] [address] Martell Baugh MD NO ADDRESS ON FILE CERVICALGIA (Primary Dx) Social History Tobacco Use Types Packs/Day Years Used Date Smoking Tobacco: Never Assessed Comments Unknown Sex and Gender Information Value Date Recorded Sex Assigned at Not on file Legal Sex Female 7:06 AM CHILDREN'S COUNSELOR Gender Identity Not on file Sexual Orientation Not on file documented as of this encounter Plan of Treatment Not on file documented as of this encounter Visit Diagnoses Diagnosis Cervicalgia- Primary documented in this encounter Care Teams Marketing Content Coordinator Relationship Specialty Start Date End Date Non-Staff, Physician NO ADDRESS ON FILE PCP - General 04/15/12 documented as of this encounter
--- OUTSIDE RECORDS SUMMARY | 2025-05-14 10:12 | XMS_ITS | Encounter Summary ---
Author Organization [facility] Address [address] [place]mahonn: Epic Prelude ADT [place] [address] Care Team Providers Care C.O.D. Biller Name Role Phone Non-Staff, Physician Primary Care Provider Unava ilable Encounter Details Date Type Department Care Team (Late st Contact Info) Description 11/15/2001 Outpatient Historical Brice Price MD [address] [place] [address] Social History Tobacco Use Types Packs/Day Years Used Date Smoking Tobacco: Never Assessed Comments Unknown Sex and Gender Information Value Date Recorded Sex Assigned at Not on file Legal Sex Female 7:06 AM HVAC SALES REPRESENTATIVE Gender Identity Not on file Sexual Orientation Not on file documented as of this encounter Plan of Treatment Not on file documented as of this encounter Visit Diagnoses Not on filedocumented in this encounter Care Teams C.O.D. Biller Relationship Specialty Start Date End Date Non-Staff, Physician NO ADDRESS ON FILE PCP - General 04/15/12 documented as of this encounter
--- OUTSIDE RECORDS SUMMARY | 2025-05-14 10:12 | XMS_ITS | Encounter Summary ---
Author Organization [facility] Address [address] Attn: Epic Prelude ADT [place] [address] Care Team Providers Care Bow Maker Machine Tender Name Role Phone Non-Staff, Physician Primary Care Provider Unava ilable Encounter Details Date Type Department Care Team (Late st Contact Info) Description 05/03/2002 Outpatient Historical Martell Baugh MD NO ADDRESS ON FILE Social History Tobacco Use Types Packs/Day Years Used Date Smoking Tobacco: Never Assessed Comments Unknown Sex and Gender Information Value Date Recorded Sex Assigned at Not on file Legal Sex Female 7:06 AM GROUP RESERVATIONS COORDINATOR Gender Identity Not on file Sexual Orientation Not on file documented as of this encounter Plan of Treatment Not on file documented as of this encounter Visit Diagnoses Not on filedocumented in this encounter Care Teams Bow Maker Machine Tender Relationship Specialty Start Date End Date Non-Staff, Physician NO ADDRESS ON FILE PCP - General 04/15/12 documented as of this encounter
--- OUTSIDE RECORDS SUMMARY | 2025-05-14 10:12 | XMS_ITS | Encounter Summary ---
Author Organization [facility] Address [address] [place] [address] Care Team Providers Care Billing And Insurance Coordinator Name Role Phone Non-Staff, Physician Primary Care Provider Unava ilable Encounter Details Date Type Department Care Team (Latest Contact Info) Description 12/04/1998 Outpatient Historical [facility] Elias Chow Jr., MD [address] [place] [phone] Gynecologic examination (Primary Dx); Cystitis, unspecified Social History Tobacco Use Types Packs/Day Years Used Date Smoking Tobacco: Never Assessed Comments Unknown Sex and Gender Information Value Date Recorded Sex Assigned at Not on file Legal Sex Female 7:06 AM DOUGH MIXING MACHINE OPERATOR Gender Identity Not on file Sexual Orientation Not on file documented as of this encounter Plan of Treatment Not on file documented as of this encounter Visit Diagnoses Diagnosis Gynecologic examination- Primary Gynecological examination Cystitis, unspecified documented in this encounter Care Teams Billing And Insurance Coordinator Relationship Specialty Start Date End Date Non-Staff, Physician NO ADDRESS ON FILE PCP - General 04/15/12 documented as of this encounter
--- OUTSIDE RECORDS SUMMARY | 2025-05-14 10:12 | XMS_ITS | Encounter Summary ---
Author Organization [facility] Address [address] [place] [address] Care Team Providers Care Security Representative Name Role Phone Non-Staff, Physician Primary Care Provider Unava ilable Encounter Details Date Type Department Care Team (Latest Contact Info) Description 11/19/2001 Outpatient Historical [facility] Luis Felipe Sanford MD [address] [place] [address] CERVICALGIA (Primary Dx); EDEMA Social History Tobacco Use Types Packs/Day Years Used Date Smoking Tobacco: Never Assessed Comments Unknown Sex and Gender Information Value Date Recorded Sex Assigned at Not on file Legal Sex Female 7:06 AM PARTS SALESMAN Gender Identity Not on file Sexual Orientation Not on file documented as of this encounter Plan of Treatment Not on file documented as of this encounter Visit Diagnoses Diagnosis Cervicalgia- Primary Edema documented in this encounter Care Teams Security Representative Relationship Specialty Start Date End Date Non-Staff, Physician NO ADDRESS ON FILE PCP - General 04/15/12 documented as of this encounter
--- OUTSIDE RECORDS SUMMARY | 2025-05-14 10:12 | XMS_ITS | Encounter Summary ---
Author Organization [facility] Address [address] [place] [address] Care Team Providers Care Supervisor Filtration Name Role Phone Non-Staff, Physician Primary Care Provider Unava ilable Encounter Details Date Type Department Care Team (Late st Contact Info) Description 02/22/2002 Outpatient Historical [facility] [address] [place] [address] Social History Tobacco Use Types Packs/Day Years Used Date Smoking Tobacco: Never Assessed Comments Unknown Sex and Gender Information Value Date Recorded Sex Assigned at Not on file Legal Sex Female 7:06 AM DISPATCHER SERVICE CHIEF Gender Identity Not on file Sexual Orientation Not on file documented as of this encounter Plan of Treatment Not on file documented as of this encounter Visit Diagnoses Not on filedocumented in this encounter Care Teams Supervisor Filtration Relationship Specialty Start Date End Date Non-Staff, Physician NO ADDRESS ON FILE PCP - General 04/15/12 documented as of this encounter
--- OUTSIDE RECORDS SUMMARY | 2025-05-14 10:12 | XMS_ITS | Encounter Summary ---
Author Organization [facility] Address [address] Attn: Epic Prelude ADT [place] [address] Care Team Providers Care Furnace Worker Name Role Phone Non-Staff, Physician Primary Care Provider Unava ilable Encounter Details Date Type Department Care Team (Late st Contact Info) Description 02/22/2002 Outpatient Historical Martell Baugh MD NO ADDRESS ON FILE Social History Tobacco Use Types Packs/Day Years Used Date Smoking Tobacco: Never Assessed Comments Unknown Sex and Gender Information Value Date Recorded Sex Assigned at Not on file Legal Sex Female 7:06 AM DATABASE ANALYST Gender Identity Not on file Sexual Orientation Not on file documented as of this encounter Plan of Treatment Not on file documented as of this encounter Visit Diagnoses Not on filedocumented in this encounter Care Teams Furnace Worker Relationship Specialty Start Date End Date Non-Staff, Physician NO ADDRESS ON FILE PCP - General 04/15/12 documented as of this encounter
--- OUTSIDE RECORDS SUMMARY | 2025-05-14 10:12 | XMS_ITS | Encounter Summary ---
Author Organization [facility] [employer] Address [address] [place] [address] Phone Care Team Providers Care Silk Screen Operator Name Role Phone Dav Mayorga DO Primary Care Provider [phone] Encounter Details Date Type Department Care Team (Late st Contact Info) Description 04/18/2025 Orders Only [facility] [address] [place] [address] Serum creatinine above reference range Social History Tobacco Use Types Packs/Day Years [...] Visit Diagnoses Diagnosis Serum creatinine above reference range documented in this encounter Care Teams Silk Screen Operator Relationship Specialty Start Date End Date Dav Mayorga DO [address] [place] [phone] PCP - General Family Medicine 04/17/25 documented as of this encounter
--- OUTSIDE RECORDS SUMMARY | 2025-05-14 10:12 | XMS_ITS | Encounter Summary ---
Author Organization [facility] Address [address] [place] [address] Care Team Providers Care Strategy Manager Name Role Phone Non-Staff, Physician Primary Care Provider Unava ilable Encounter Details Date Type Department Care Team (Late st Contact Info) Description 01/27/2012 Ancillary Orders [facility] [address] [place] [address] Nehemias Hung MD [address] [place] [address] Pain Social History Tobacco Use Types Packs/Day Years Used Date Smoking Tobacco: Every Day Cigarettes 1 30 Alcohol Use Standard Drinks/Week Comments No 0 (1 standard drink = 0.6 oz pur e alcohol) Comments No Sex and Gender Information Value Date Recorded Sex Assigned at Not on file Legal Sex Female 7:06 AM HRIS DEVELOPER Gender Identity Not on file Sexual Orientation Not on file Occupation Industry Job Start Date Job End Date Not on file Not on file Not on file Not on file documented as of this encounter Plan of Treatment Not on file documented as of this encounter Results * XR SPINE SCOLIOSIS 2 VW (01/27/2012 1:34 PM CDT) Anatomical Region Laterality Modality Spine Computed Radiogr aphy Narrative 02/02/2012 7:16 AM CDT PA and lateral scoliosis films show that she has a big scoliotic curve, more than 50 degrees, thoracolumbar, and probably about a 30 degree thoracic curve. With the stress views bending she really did not straighten out much. Procedure Note Nehemias Hung MD - 02/02/2012 PA and lateral scoliosis films show that she has a big scoliotic curve,more than 50 degrees, thoracolumbar, and probably about a 30 degreethoracic curve. With the stress views bending she really did notstraighten out much. us Nehemias Hung MD DIAGNOSTIC IMAGING ORDERABLES Final Result documented in this encounter Visit Diagnoses Diagnosis Pain Generalized pain documented in this encounter Care Teams Strategy Manager Relationship Specialty Start Date End Date Non-Staff, Physician NO ADDRESS ON FILE PCP - General 04/15/12 documented as of this encounter
--- OUTSIDE RECORDS SUMMARY | 2025-05-14 10:12 | XMS_ITS | Encounter Summary ---
Author Organization [facility] Address [address] [place] [address] Care Team Providers Care Medical Detail Representative Name Role Phone Non-Staff, Physician Primary Care Provider Unava ilable Encounter Details Date Type Department Care Team (Latest Contact Info) Description 08/19/2001 Outpatient Historical [facility] [address] [facility] [address] [place] [address] Ana Smith MD NO ADDRESS ON FILE Other screening mammogram (Primary Dx) Social History Tobacco Use Types Packs/Day Years Used Date Smoking Tobacco: Never Assessed Comments Unknown Sex and Gender Information Value Date Recorded Sex Assigned at Not on file Legal Sex Female 7:06 AM BAG BUNDLER Gender Identity Not on file Sexual Orientation Not on file documented as of this encounter Plan of Treatment Not on file documented as of this encounter Visit Diagnoses Diagnosis Other screening mammogram- Primary documented in this encounter Care Teams Medical Detail Representative Relationship Specialty Start Date End Date Non-Staff, Physician NO ADDRESS ON FILE PCP - General 04/15/12 documented as of this encounter
--- OUTSIDE RECORDS SUMMARY | 2025-05-14 10:12 | XMS_ITS | Encounter Summary ---
Author Organization [facility] Address [address] [place] [address] Care Team Providers Care Senior Health Educator Name Role Phone Non-Staff, Physician Primary Care Provider Unava ilable Encounter Details Date Type Department Care Team (Latest Contact Info) Description 03/18/2002 Outpatient [facility] [address] [place] [id number] Juancarlos Maier MD NO ADDRESS ON FILE CERVICALGIA (Primary Dx) Social History Tobacco Use Types Packs/Day Years Used Date Smoking Tobacco: Never Assessed Comments Unknown Sex and Gender Information Value Date Recorded Sex Assigned at Not on file 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
--- OUTSIDE RECORDS SUMMARY | 2025-05-14 10:12 | XMS_ITS | Encounter Summary ---
Author Organization [facility] Address [address] [place] [address] Care Team Providers Care Telephoto Engineer Name Role Phone Non-Staff, Physician Primary Care Provider Unava ilable Encounter Details Date Type Department Care Team (Latest Contact Info) Description 03/29/1998 Outpatient Historical [facility] Elias Chow Jr., MD [address] [place] [phone] Symptomatic menopausal or female climacteric states (Primary Dx) Social History Tobacco Use Types Packs/Day Years Used Date Smoking Tobacco: Never Assessed Comments Unknown Sex and Gender Information Value Date Recorded Sex Assigned at Not on file 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
--- OUTSIDE RECORDS SUMMARY | 2025-05-14 10:12 | XMS_ITS | Encounter Summary ---
Author Organization [facility] Address [address] [facility] Attn: Epic Prelude ADT [place] [address] Care Team Providers Care Motorized Squad Commanding Officer Name Role Phone Non-Staff, Physician Primary Care Provider Unava ilable Encounter Details Date Type Department Care Team (Late st Contact Info) Description 03/18/2002 Outpatient Historical Juancarlos Maier MD NO ADDRESS ON FILE Social History Tobacco Use Types Packs/Day Years Used Date Smoking Tobacco: Never Assessed Comments Unknown Sex and Gender Information Value Date Recorded Sex Assigned at Not on file 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
--- OUTSIDE RECORDS SUMMARY | 2025-05-14 10:12 | XMS_ITS | Encounter Summary ---
Author Organization [facility] Address [address] [place] [address] Care Team Providers Care Automobile Parker Name Role Phone Non-Staff, Physician Primary Care Provider Unava ilable Encounter Details Date Type Department Care Team (Latest Contact Info) Description 09/13/2002 Outpatient Historical [facility] [address] [facility] [address] [place] [address] Franklin Welsh MD NO ADDRESS ON FILE SCREENING MAMM-MAILG NEOPL-OTHER (Primary Dx) Social History Tobacco Use Types Packs/Day Years Used Date Smoking Tobacco: Never Assessed Comments Unknown Sex and Gender Information Value Date Recorded Sex Assigned at Not on file 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
[2025-05-14 11:27] LABS: Hematocrit 41.2 % (36-47); Hemoglobin 13.80 g/dL (11.27-16.99); Mean Corpuscular HGB Conc 33.5 g/dL (30-55); Mean Corpuscular Hemoglobin 33.7 pg (27-33); Mean Corpuscular Volume 100.7 fl (85-98); Nucleated Red Blood Cells % 0 %; Platelet Count 129 10^3/cmm (157-399); Red Blood Count 4.09 10^6/uL (3.85-5.65); White Blood Count 6.71 10^3/uL (3.29-11.43)
[2025-05-14 11:48] LABS: Glucose Urine UA Negative (Normal); Nitrate Urine Negative (Negative); Specific Gravity, Urine 1.013 (1.005-1.030)
--- NOTE | 2025-05-14 11:48 | ED_ITS ---
HPI - Abdominal Pain 2 General: Chief Complaint: Abdominal Pain Stated Complaint: abdominal pain Time Seen by Provider: 05/14/25 10:09 History of Present Illness: This patient is a 65 year old presenting with abdominal pain for several months. She reports a 50 pound weight loss over that time. She reports vomiting and refluxing after most PO intake. She has pain all over her abdomen - but holds her hands over the upper portion when asked where it hurts. She also feels full and bloated and feels like there is pressure pushing up into her chest. She has had some fevers subjectively - but not currently. She has had UTI symptoms but had a UA done at urgent care last month that was normal. They gave her antibiotics anyway but it didn't help. She also has had chronic constipation and is on linzess. She did not take it this morning because she was coming to the ED. She denies chest pain or URI symptoms - but does have sinus congestion that also didn't improve with antibiotics. She has a history of chronic pain as well and used to have a pain pump in the right lower quadrant but it was removed some time ago. Related Data Home Medications ?Medication ?Instructions ?Recorded ?Confirmed potassium gluconate 595 mg (99 mg) 595 mg PO TID@08,15 ,03/12/20 05/14/25 tablet dvktxdb-qlluisaqdexcl-byedawbx 250 1 tab PO DIRECTE D 09/14/24 05/14/25 mg-250 mg-65 mg tablet (Excedrin Extra Strength) glycopyrrolate 1 mg tablet 1 mg PO TID 05/14/25 (Nora) Previous Rx's ?Medication ?Instructions ?Recorded Duoderm #10 ea 08/06/21 E0748 Bone Growth Stimulator #1 ea 06/09/23 CAM boot #1 ea 12/02/23 ASO brace #1 ea 12/31/23 Fast form splint, right wrist #1 ea 08/17/24 meclizine 25 mg tablet 25 mg PO DAILY PRN nausea an d 11/04/24 vomiting #30 tabs baclofen 10 mg tablet See Rx Instructions .Route 0 12/19/24 .COMPLEX #360 tabs carvedilol 6.25 mg tablet (Coreg) 6.25 mg PO Q12H #180 tabs 12/19/24 cyanocobalamin (vitamin B-12) 1,000 mcg IM .monthly #2 mL 12/19/24 1,000 mcg/mL injection solution ergocalciferol (vitamin D2) 1,250 50,000 unit PO Q7D # 12 caps 12/19/24 mcg (50,000 unit) capsule fenofibrate micronized 134 mg 134 mg PO DAILY@15 #90 c aps 12/19/24 capsule gabapentin 800 mg tablet 800 mg PO TID #360 tabs 11/27 02/17 levothyroxine 50 mcg tablet 50 mcg PO DAILY@1500 #90 t abs 12/19/24 linaclotide 145 mcg capsule 145 mcg PO BEDTIME #90 cap s 12/19/24 (Linzess) paroxetine HCl 30 mg tablet 30 mg PO DAILY #90 tabs syringe with needle 3 mL 25 gauge #5 ea 12/19/24 x 1 (BD Luer-Rae Syringe) irbesartan 75 mg tablet (Avapro) 75 mg PO DAILY #30 ta bs 04/12/25 Allergies Allergy/AdvReac Type Severity Reaction Status Date / Time atorvastatin (From Lipitor) Allergy Unknown known Verified 04/12/25 13:12 ezetimibe (From Zetia) Allergy Unknown unknown Verified 04/12/25 13:12 rosuvastatin (From Crestor) Allergy Unknown unknown Verified 04/12/25 13:12 Czsipra-JRP-DmZ Reductase Allergy Unknown Unknown Verified 04/12/25 13:12 Inhibitor (Ouvqmso-Kyq-Ldu Reductase Inhibitor) Sulfa (Sulfonamide Allergy Unknown Unknown Verified 04/12/25 13:12 Antibiotics) sumatriptan (From Imitrex) Allergy Unknown known Verified 04/12/25 13:12 IV contrast dye Allergy ALGY-Anaphy Uncoded 04/12/25 13:12 laxis PFSH ED 2 PFSH: Medical History (Updated 05/14/25 @ 14:04 by Serena Das MD) Pneumonia COPD (chronic obstructive pulmonary disease) Dehydration Hyperkalemia Acute kidney injury superimposed on CKD Altered mental status Anxiety, generalized CHF (congestive heart failure), NYHA class III Constipation, slow transit 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 CAD (coronary artery disease) Vitamin B12 deficiency Essential (primary) hypertension Gastric reflux Fibromyalgia muscle pain Osteopenia of multiple sites Chronic bilateral low back pain with bilateral sciatica Vitamin D deficiency Mixed hyperlipidemia Adult onset hypothyroidism Hypotension, unspecified Neuropathic pain of both legs Surgical History History of back surgery History of cholecystectomy History of tonsillectomy History of hysterectomy Family History Other Arthritis Coronary artery disease involving [place] coronary artery of [place] heart with unstable angina pectoris Diabetes Hypertension Thyroid disease Social History Smoking and tobacco/nicotine status: current every day tobacco/nicotine user Second hand smoke exposure: Yes Alcohol intake: never Substance/Drug Use: unknown Adopted: No Caregiver/support person: Yes Lives independently: No Household members: family Housing: House Marital status: service: No Current occupational status: disabled Do you think of yourself as: Straight/Heterosexual Current gender identity: Female Physical Exam 2 Const: COMMON NORMALS: no acute distress, patient oriented x3, no limitations and alert GENERAL APPEARANCE: cooperative, comfortable, frail appearing and appears older than stated age HENMT: HEAD & SCALP: normal to inspection FACE & SINUS: normal facial exam Eye: GENERAL EYE: appearance normal, both eyes and all related structures Neck/C-Spine: COMMON NORMALS: supple, no meningeal signs and no JVD Chest: COMMONS NORMALS: normal inspection of the chest Resp: COMMON NORMALS: normal respiratory effort, No use of accessory muscles and clear to auscultation bilaterally AUSCULTATION: clear to auscultation bilaterally Cardio: COMMON NORMALS: no JVD, regular rate, regular rhythm and No murmurs present (Cardio) RATE: regular rate RHYTHM: regular rhythm GI: COMMON NORMALS: Normal to inspection, nondistended, normoactive bowel sounds present, Soft to palpation and non-tender INSPECTION: Yes normal to inspection AUSCULTATION: Yes normoactive bowel sounds PALPATION: Yes Soft to palpation Back/Pelvis: COMMON NORMALS: thoracic and lumbar spine normal to inspection Extremity: COMMON NORMALS: normal to inspection Neuro: COMMON NORMALS: patient oriented x3, moves all extremities, no focal motor deficits and no sensory deficits noted SENSORIUM/ORIENTATION: Yes alert MENINGEAL SIGNS: Yes no meningeal signs Psych: COMMON NORMALS: mental status grossly normal, cooperative and normal affect Skin: OTHER: Small sacral decubitus pressure wound approximately stage II. Course 2 Vital Signs: Vital signs: Vital Signs Temperature 97.9 F 05/14/25 10:08 Pulse Rate 67 05/14/25 14:15 Respiratory Rate 16 05/14/25 10:08 Blood Pressure 166/122 05/14/25 14:15 Pulse Oximetry 95 05/14/25 14:15 Oxygen Delivery Me thod Room Air 05/14/25 12:36 MDM - Abdominal Pain Medical Decision Making This patient has had a very significant weight loss over the past few months. Her workup is really fairly benign including CT. I repeated this as her last one was in February and showed some abnormalities of the left kidney and left ureter. These remain unchanged. There was no other significant finding. This patient needs some fairly close outpatient follow-up for further evaluation of the cause of her weight loss. She has had her primary care attempting to refer her to various places but the soonest she can get in for her kidneys is in July. We discussed possible options for other places she can follow-up and be seen sooner. I strongly think she needs to see a GI doctor as well. Lab Data 05/14/25 11:22 05/14/25 11:22 Labs/Radiology: Radiology Impressions Abdomen/Pelvis CT 05/14/25 12:01 IMPRESSION: Similar moderate left hydro nephrosis up to the mid left ureter. No definite obstruction within the limits of streak artifact from adjacent hardware. Additional incidental/chronic findings as above. COMMENTS: Consistent with the [place] [employer]'s Incidental Findings Committee white paper (J Am Jessie Radiol 2018): Any incidental renal lesion less than 1 cm or classified as too small to characterize, or any incidental cystic renal lesion characterized as simple-appearing, is likely benign. No follow-up imaging is recommended for these lesions per consensus recommendations based on imaging criteria. Laboratory Results WBC 6.71 10^3/uL (3.29-11.43) 05/14/25 11:22 RBC 4.09 10^6/uL (3.85-5.65) 05/14/25 11:22 Hgb 13.80 g/dL (11.27-16.99) 05/14/25 11:22 Hct 41.2 % (36-47) 05/14/25 11:22 MCV 100.7 fl (85-98) H 05/14/25 11:22 MCH 33.7 pg (27-33) H 05/14/25 11:22 MCHC 33.5 g/dL (30-55) 05/14/25 11:22 RDW 14.1 % (12.1-15.1) 05/14/25 11:22 Plt Count 129 10^3/cmm (157-399) L 05/14/25 11:22 MPV 10.6 fL (7.4-10.4) H 05/14/25 11:22 Neut % (Auto) 74.6 % 05/14/25 11:22 Lymph % (Auto) 16.1 % 05/14/25 11:22 [place] % (Auto) 7.9 % 05/14/25 11:22 Eos % (Auto) 0.7 % 05/14/25 11:22 Baso % (Auto) 0.3 % 05/14/25 11:22 Neut # (Auto) 5.00 10^3/uL (1.8-7.7) 05/14/25 11:22 Lymph # (Auto) 1.1 10^3/uL (0.8-4.8) 05/14/25 11:22 [place] # (Auto) 0.5 10^3/uL (0.2-0.9) 05/14/25 11:22 Eos # (Auto) 0.1 10^3/uL (0.0-0.8) 05/14/25 11:22 Baso # (Auto) 0.0 10^3/uL (0.0-0.1) 05/14/25 11:22 Nucleated RBC % (auto) 0 % 05/14/25 11:22 Nucleated RBCs # 0.0 /100WBC 05/14/25 11:22 Sodium 136 mmol/L (136-145) 05/14/25 11:22 Potassium 4.3 mmol/L (3.5-5.1) 05/14/25 11:22 Chloride 100 mmol/L (98-107) 05/14/25 11:22 Carbon Dioxide 26 mmol/L (22-29) 05/14/25 11:22 Anion Gap 14.3 (5-19) 05/14/25 11:22 BUN 20 mg/dL (8-23) 05/14/25 11:22 Creatinine 1.1 mg/dL (0.5-0.9) H 05/14/25 11:22 GFR Calculation 50.0 mL/min (90-130) L 05/14/25 11:22 Glucose 83 mg/dL (65-115) 05/14/25 11:22 Calculated Osmolality 284 mOsm/kg (285-295) L 05/14/25 11:22 Calcium 8.9 mg/dL (8.5-10.5) 05/14/25 11:22 Total Bilirubin 0.3 mg/dL (0.15-1.2) 05/14/25 11:22 AST 19 U/L (0-32) 05/14/25 11:22 ALT 7 U/L (0-33) 05/14/25 11:22 Alkaline Phosphatase 41 U/L (35-105) 05/14/25 11:22 Total Protein 6.3 g/dL (6.6-8.7) L 05/14/25 11:22 Albumin 3.6 g/dL (3.5-5.2) 05/14/25 11:22 Globulin 2.7 g/dL (1.3-4.6) 05/14/25 11:22 Lipase 35 U/L (13-60) 05/14/25 11:22 Urine Color Yellow (Yellow) 05/14/25 11:30 Urine Appearance Clear (CLEAR) 05/14/25 11:30 Urine pH 6.0 (5-7) 05/14/25 11:30 Ur Specific [place] 1.013 (1.005-1.030) 05/14/25 11:30 Urine Protein Negative (Negative) 05/14/25 11:30 Urine Glucose (UA) Negative (Normal) 05/14/25 11:30 Urine Ketones Negative (Negative) 05/14/25 11:30 Urine Blood Negative (Negative) 05/14/25 11:30 Urine Nitrate Negative (Negative) 05/14/25 11:30 Urine Bilirubin Negative (Negative) 05/14/25 11:30 Urine Urobilinogen 1.0 mg/dL (Negative) 05/14/25 11:30 Ur Leukocyte Esterase Trace (Negative) A 05/14/25 11:30 Urine RBC 0-2 /hpf (0-2) 05/14/25 11:30 Urine WBC 0-5 /hpf (0-5) 05/14/25 11:30 Ur Squamous Epith Cells 0-5 /hpf (0-5) 05/14/25 11:30 Amorphous Sediment Not Reportable 05/14/25 11:30 Urine Bacteria None seen /hpf (NONE) 05/14/25 11:30 Hyaline Casts 0.81 /lpf 05/14/25 11:30 All radiology interpretation(s) finalized by discharge Discharge Plan Discharge Patient Disposition: Home Clinical Impression: Abdominal pain, Abnormal weight loss, Ureteral stricture, left Condition: Stable Prescriptions: No Action (DME) Duoderm See Rx Instructions .Route .MEDSUPPLY Qty: 10 0RF Rx Instructions: As directed (DME) ASO brace See Rx Instructions .Route .MEDSUPPLY Qty: 1 0RF Rx Instructions: As directed baclofen 10 mg tablet See Rx Instructions .ROUTE .COMPLEX Qty: 360 1RF Rx Instructions: 10mg po qam, 10mg @15:00,20mg @22:00; carvedilol [Coreg] 6.25 mg tablet 6.25 mg PO Q12H Qty: 180 1RF Rx Instructions: must administer with a meal cyanocobalamin (vitamin B-12) 1,000 mcg/mL solution 1,000 mcg IM .monthly Qty: 2 2RF ergocalciferol (vitamin D2) 1,250 mcg (50,000 unit) capsule 50,000 unit PO Q7D Qty: 12 0RF Rx Instructions: on thursday fenofibrate micronized 134 mg capsule 134 mg PO DAILY@15 Qty: 90 1RF gabapentin 800 mg tablet 800 mg PO TID Qty: 360 1RF levothyroxine 50 mcg tablet 50 mcg PO DAILY@1500 Qty: 90 1RF Linzess 145 mcg capsule 145 mcg PO BEDTIME Qty: 90 1RF paroxetine HCl 30 mg tablet 30 mg PO DAILY Qty: 90 1RF (DME) BD Luer-Rae Syringe 3 mL 25 gauge x 1 syringe See Rx Instructions .ROUTE .MEDSUPPLY Qty: 5 0RF Rx Instructions: monthly (DME) E0748 Bone Growth Stimulator See Rx Instructions .Route .MEDSUPPLY Qty: 1 0RF Rx Instructions: As directed (DME) CAM boot See Rx Instructions .Route .MEDSUPPLY Qty: 1 0RF Rx Instructions: As directed to HOME (DME) Fast form splint, right wrist See Rx Instructions .ROUTE .MEDSUPPLY Qty: 1 0RF Rx Instructions: As directed meclizine 25 mg tablet 25 mg PO DAILY PRN (Reason: nausea and vomiting) Qty: 30 0RF irbesartan [Avapro] 75 mg tablet 75 mg PO DAILY Qty: 30 2RF potassium gluconate 595 mg (99 mg) Tablet 595 mg PO TID@08,15,22 Excedrin Extra Strength 250-250-65 mg Tablet 1 tab PO DIRECTED glycopyrrolate [Robinul] 1 mg tablet 1 mg PO TID Discharge Orders: Discharge ED (Routine); Ordered 05/14/25 Ordered By: Serena Das Referrals: Román Miranda MD [Physician, Internal Medicine] Referral Note: Hitesh Wong, NUMERICAL CONTROL TOOL PROGRAMMER-C [Primary Care Provider, Family Practice] Patient Instructions: Abdominal Pain (ED), Opioid Safety, Pain Management, Patient Portal & Evelia Instructions Activity Restrictions/Additional Instructions: Contact your primary care office to ask about getting into see GI and urology sooner - maybe try providers in [place]? Print Language: Niuean Coding Level of Care Code ED Pile Driver Engineer for Antonia Medina
[2025-05-14 11:50] LABS: Alanine Aminotransferase 7 U/L (0-33); Albumin Level 3.6 g/dL (3.5-5.2); Alkaline Phosphatase 41 U/L (35-105); Anion Gap 14.3 (5-19); Aspartate Amino Transferase 19 U/L (0-32); Blood Urea Nitrogen 20 mg/dL (8-23); Calcium 8.9 mg/dL (8.5-10.5); Carbon Dioxide 26 mmol/L (22-29); Chloride 100 mmol/L (98-107); Creatinine Clr Calc Pharmacy 41.8073; Globulin 2.7 g/dL (1.3-4.6); Glucose 83 mg/dL (65-115); Lipase 35 U/L (13-60); Osmolality Calculated 284 mOsm/kg (285-295); Potassium 4.3 mmol/L (3.5-5.1); Sodium 136 mmol/L (136-145); Total Protein 6.3 g/dL (6.6-8.7)
[2025-05-14 11:51] LABS: Add Urine Microscopic? YES
--- NOTE | 2025-05-14 12:01 | CTR_ITS ---
PROCEDURE INFORMATION: Exam: CT Abdomen And Pelvis Without Contrast Exam date and time: 05/14/2025 12:14 PM Age: 65 years old Clinical indication: Abdominal pain; Generalized; Prior surgery; Surgery date: 6+ months; Surgery type: Back, hysto; Additional info: Abdominal pain, weight loss TECHNIQUE: Imaging protocol: Computed tomography of the abdomen and pelvis without contrast. Radiation optimization: All CT scans at this facility use at least one of these dose optimization techniques: automated exposure control; mA and/or kV adjustment per patient size (includes targeted exams where dose is matched to clinical indication); or iterative reconstruction. COMPARISON: CT abdomen pelvis wo con [id number] 03/17/2025 1:39 PM RADIATION DOSE METRICS: Total DLP (mGy-cm): 392.84 FINDINGS: Liver: Normal. No mass. Gallbladder and biliary ducts: Status post cholecystectomy. Pancreas: Normal. No ductal dilation. Spleen: Normal. No splenomegaly. Adrenal glands: Normal. No mass. Kidneys and ureters: Bilateral renal cysts. Similar moderate left-sided hydronephrosis without a definitive obstructing cause. Stomach and bowel: No evidence of bowel obstruction of the small bowel. Similar gaseous distension of the large bowel loops. Appendix: No evidence of appendicitis. Intraperitoneal space: Unremarkable. No free air. No significant fluid collection. Vasculature: Moderate aorto bi-iliac atherosclerotic calcifications. No abdominal aortic aneurysm. Lymph nodes: Unremarkable. No enlarged lymph nodes. Urinary bladder: Unremarkable as visualized. Reproductive: Unremarkable as visualized. Bones/joints: Scoliosis of the lumbar spine. Bilateral Heredia rods infusions at multiple levels. Advanced multilevel lumbar spondylosis. Diffuse osseous demineralization. No definite acute fracture or traumatic malalignment. Soft tissues: Unremarkable. CT/CT abdomen pelvis wo con [id number] IMPRESSION: Similar moderate left hydro nephrosis up to the mid left ureter. No definite obstruction within the limits of streak artifact from adjacent hardware. Additional incidental/chronic findings as above. COMMENTS: Consistent with the [place] [employer]'s Incidental Findings Committee white paper (J Am Jessie Radiol 2018): Any incidental renal lesion less than 1 cm or classified as too small to characterize, or any incidental cystic renal lesion characterized as simple-appearing, is likely benign. No follow-up imaging is recommended for these lesions per consensus recommendations based on imaging criteria.
[2025-05-14 12:36] VITALS: BP 179/115; PULSE 65; O2SAT 98
[2025-05-14 14:15] VITALS: BP 166/122; PULSE 67; O2SAT 95
== END 2025-05-14 14:16 | disposition home or self-care (01) ==
PROVIDERS: Emergency Provider Emergency Medicine; PCP Nurse Practitioner
DX: N35.92 Unspecified urethral stricture, female (principal); R10.9 Unspecified abdominal pain; R63.4 Abnormal weight loss
CPT/HCPCS: 36415; 74176; 80053; 81001; 83690; 85025; 99284

== ENCOUNTER 2025-07-02 14:56 | Emergency (ER) | payer MEDICARE, MEDICAID, SELFPAY ==
--- NOTE | 2025-07-02 14:59 | XRR_ITS ---
PROCEDURE INFORMATION: Exam: XR Abdomen Exam date and time: 07/02/2025 3:04 PM Age: 65 years old Clinical indication: Nausea and vomiting; Additional info: Vomiting PT refused the supine abd so it is just an upright chest and upright abd image TECHNIQUE: Imaging protocol: Radiologic exam of the abdomen. Views: 2 Views. Upright and supine views. COMPARISON: CT abdomen pelvis wo con [id number] 03/17/2025 1:39 PM FINDINGS: Lungs: The pulmonary vessels are within normal limits. The lungs are clear. Heart/Mediastinum: The cardiomediastinal silhouette is within normal limits. Gastrointestinal tract: Limited view of the abdomen shows nonspecific bowel-gas pattern. Intraperitoneal space: Limits to be of the abdomen shows no free intraperitoneal air. Bones/joints: Thoracolumbar fusion. Severe dextroscoliosis at the thoracolumbar junction. XR/XR acute abdomen series [id number] IMPRESSION: 1. No acute pulmonary finding. 2. Limited view of the abdomen shows nonspecific bowel-gas pattern.
--- NOTE | 2025-07-02 14:59 | ECG_ITS ---
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
--- NOTE | 2025-07-02 15:01 | W.ED.NAVMDI ---
HPI - Nausea/Vomiting/Diarrhea General: Chief complaint: Nausea/Vomiting/Diarrhea Stated complaint: VOMITING Time Seen by Provider: 07/02/25 14:56 History of Present Illness: Patient is a 65-year-old female with history of hypertension, HLD, hypothyroidism, COPD, status postcholecystectomy, hysterectomy, presents to the emergency room with nausea and vomiting. This started this a.m. x 4 different times. She had incontinence of urine associated with her vomiting. She has association of weakness. Patient states there is no change in her chronic abdominal pain that she has had for at least the last 8 months. Denies sick contact, fever, chills. No shortness of breath or chest pain. Patient has had issues with weight loss, abdominal pain over the last 8 months. Primary care physician has obtained a CT of her abdomen and pelvis, noting moderate hydronephrosis without obstruction. No history of CKD. Primary care recommended patient see a GI doctor. She is due for EGD tomorrow per GI. Vitals are stable per EMS, blood glucose 104. No neurological changes other than weakness that started after the nausea and vomiting today. EMS gave Zofran x 4 mg and 150 mL of LR. 05/14/25 CT wo contrast: Similar moderate left hydro nephrosis up to the mid left ureter. No definite obstruction within the limits of streak artifact from adjacent hardware. Pertinent past history: anorexia and other (Chronic abdominal pain) Associated nausea: Yes Associated symtoms: Reports malaise and nausea; Denies anxiety, change in vision, chest pain, fecal incontinence, headache(s) or palpitations Related Data Home Medications ?Medication ?Instructions ?Recorded ?Confirmed potassium gluconate 595 mg (99 mg) 595 mg PO TID@08,15,22 03/12/20 07/02/25 tablet prxnuiu-uakqccbfexhxs-sqwtduug 250 1 tab PO Q6H PRN Pain 09/14/24 07/02/25 mg-250 mg-65 mg tablet (Excedrin Extra Strength) glycopyrrolate 1 mg tablet 1 mg PO TID 05/14/25 07/02/25 (Robalis) irbesartan 150 mg tablet 150 mg PO DAILY 07/02/25 07/02/25 Previous Rx's ?Medication ?Instructions ?Recorded meclizine 25 mg tablet 25 mg PO DAILY PRN nausea and 11/04/24 vomiting #30 tabs baclofen 10 mg tablet See Rx Instructions .Route 12/19/24 .COMPLEX #360 tabs carvedilol 6.25 mg tablet (Coreg) 6.25 mg PO Q12H #180 tabs 12/19/24 cyanocobalamin (vitamin B-12) 1,000 mcg IM .monthly #2 mL 12/19/24 1,000 mcg/mL injection solution ergocalciferol (vitamin D2) 1,250 50,000 unit PO Q7D #12 caps 12/19/24 mcg (50,000 unit) capsule fenofibrate micronized 134 mg 134 mg PO DAILY@15 #90 caps 12/19/24 capsule gabapentin 800 mg tablet 800 mg PO TID #360 tabs 12/19/24 levothyroxine 50 mcg tablet 50 mcg PO DAILY@1500 #90 tabs 12/19/24 linaclotide 145 mcg capsule 145 mcg PO BEDTIME #90 caps 12/19/24 (Linzess) paroxetine HCl 30 mg tablet 30 mg PO DAILY #90 tabs 12/19/24 syringe with needle 3 mL 25 gauge #5 ea 12/19/24 x 1 (BD Luer-Rae Syringe) terconazole 0.4 % vaginal cream 1 appful vaginal .at bedtime #45 06/27/25 grams cefdinir 300 mg capsule 300 mg PO BID 10 days #20 caps 07/02/25 ondansetron 4 mg disintegrating 4 mg PO Q8H PRN nausea and 07/02/25 tablet vomiting 4 days #14 tabs Allergies Allergy/AdvReac Type Severity Reaction Status Date / Time atorvastatin (From Lipitor) Allergy Unknown known Verified 05/24/25 18:03 ezetimibe (From Zetia) Allergy Unknown unknown Verified 05/24/25 18:03 rosuvastatin (From Crestor) Allergy Unknown unknown Verified 05/24/25 18:03 Ajipxdd-VHC-WaC Reductase Allergy Unknown Unknown Verified 05/24/25 18:03 Inhibitor (Xahpldp-Bmu-Ugo Reductase Inhibitor) Sulfa (Sulfonamide Allergy Unknown Unknown Verified 05/24/25 18:03 Antibiotics) sumatriptan (From Imitrex) Allergy Unknown known Verified 05/24/25 18:03 IV contrast dye Allergy ALGY-Anaphy Uncoded 05/24/25 18:03 laxis Review of Systems Const: Reports: malaise; Denies: fever(s), chills or body aches Eyes: Denies: change in vision or blurry vision ENMT: Denies: throat pain or dry mouth Card: Denies: chest pain or palpitations Resp: Denies: dyspnea or productive cough GI: Reports: abdominal pain (Chronic without change), nausea and vomiting; Denies: fecal incontinence, pain on defecation, rectal pain or change in stool character : Reports: urinary urgency and dribbling (new today); Denies: flank pain, difficulty voiding or hematuria Musc: Denies: neck pain or extremity pain Skin/Breast: Denies: rash or pruritus Neuro: Denies: headache(s) or numbness in extremities Psych: Denies: anxiety or depression Endo: Reports: polyuria PFSH ED PFSH: Medical History (Updated 07/02/25 @ 16:53 by CURT Montez) Pneumonia COPD (chronic obstructive pulmonary disease) Dehydration Hyperkalemia Acute kidney injury superimposed on CKD Altered mental status Anxiety, generalized CHF (congestive heart failure), NYHA class III Constipation, slow transit 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 CAD (coronary artery disease) Vitamin B12 deficiency Essential (primary) hypertension Gastric reflux Fibromyalgia muscle pain Osteopenia of multiple sites Chronic bilateral low back pain with bilateral sciatica Vitamin D deficiency Mixed hyperlipidemia Adult onset hypothyroidism Hypotension, unspecified Neuropathic pain of both legs Surgical History History of back surgery History of cholecystectomy History of tonsillectomy History of hysterectomy Family History Other Arthritis Coronary artery disease involving [place] coronary artery of [place] heart with unstable angina pectoris Diabetes Hypertension Thyroid disease Social History Smoking and tobacco/nicotine status: current every day tobacco/nicotine user Second hand smoke exposure: Yes Alcohol intake: never Substance/Drug Use: unknown Adopted: No Caregiver/support person: Yes Lives independently: No Household members: family Housing: House Marital status: service: No Current occupational status: disabled Do you think of yourself as: Straight/Heterosexual Current gender identity: Female Physical Exam Const: COMMON NORMALS: no acute distress, average body habitus, patient oriented x3, no limitations and alert HENMT: COMMON NORMALS: normocephalic and atraumatic HEAD & SCALP: normocephalic and atraumatic Neck/C-Spine: COMMON NORMALS: full ROM Lymph: LYMPHATIC: no lymphadenopathy noted Chest: COMMONS NORMALS: normal inspection of the chest and normal palpation of entire chest wall Resp: COMMON NORMALS: normal respiratory effort and No retractions EFFORT & INSPECTION: Yes symmetric chest movement AUSCULTATION: bronchial breath sounds bilateral GI: COMMON NORMALS: Soft to palpation AUSCULTATION: Yes normoactive bowel sounds PALPATION: Yes Soft to palpation and Yes Tenderness to palpation present (GI) (epigastrum) : COMMON NORMALS: Yes no CVA tenderness BLADDER/KIDNEY EXAM: Yes no CVA tenderness Back/Pelvis: COMMON NORMALS: no CVA tenderness Extremity: COMMON NORMALS: normal to inspection, full ROM and capillary refill normal Neuro: COMMON NORMALS: patient oriented x3 SENSORIUM/ORIENTATION: Yes alert Psych: COMMON NORMALS: mental status grossly normal and Normal thought process present THOUGHT PROCESS: Normal thought process present Course Vital Signs: Vital signs: Vital Signs Temperature 97.8 F 07/02/25 15:02 Pulse Rate 86 07/02/25 15:02 Respiratory Rate 16 07/02/25 15:02 Blood Pressure 160/111 07/02/25 16:01 Pulse Oximetry 95 07/02/25 16:01 Oxygen Delivery Me thod Room Air 07/02/25 16:01 MDM - Nausea/Vomiting/Diarrhea Medical Decision Making Patient 65-year-old female presents to ED with chronic abdominal pain without change, nausea and vomiting x 4 that occurred today, with nonspecific gas pattern on upright, refused flat abdomen, ordered CT of the abdomen with contrast, for which patient refused due to contrast allergy. I did order the prophylaxis for allergy to contrast, however patient has persistently refused this, which she has the right to do. Will obtain a CT of the abdomen without contrast to see if we can further discern her underlying etiology or if she has an underlying bowel obstruction. Abdominal surgeries include cholecystectomy and hysterectomy. Additional factors include recent moderate hydronephrosis up to left ureter Lab Data 07/02/25 15:25 07/02/25 15:25 Radiology Impressions Chest/Abdomen X-ray 07/02/25 14:59 IMPRESSION: 1. No acute pulmonary finding. 2. Limited view of the abdomen shows nonspecific bowel-gas pattern. Abdomen/Pelvis CT 07/02/25 15:53 IMPRESSION: 1. Again seen is moderate left-sided hydronephrosis. There is a questionable 5 mm hyperdensity in the left proximal ureter (4/32). Evaluation is suboptimal due to adjacent metallic artifacts. Obstructing stone can not be excluded. 2. New left-sided perinephric stranding changes are seen. Pyelonephritis can not be excluded. Clinical correlation is advised. 3. Coronary calcifications. 4. Mild calcified atherosclerotic changes are seen throughout the abdominal aorta. COMMENTS: Consistent with the [employer]'s Incidental Findings Committee white paper (J Am Jessie Radiol 2018): Any incidental renal lesion less than 1 cm or classified as too small to characterize, or any incidental cystic renal lesion characterized as simple-appearing, is likely benign. No follow-up imaging is recommended for these lesions per consensus recommendations based on imaging criteria. Laboratory Results WBC 11.54 10^3/uL (3.29-11.43) H 07/02/25 15:25 RBC 4.73 10^6/uL (3.85-5.65) 07/02/25 15:25 Hgb 15.80 g/dL (11.27-16.99) 07/02/25 15:25 Hct 47.7 % (36-47) H 07/02/25 15:25 MCV 100.8 fl (85-98) H 07/02/25 15:25 MCH 33.4 pg (27-33) H 07/02/25 15:25 MCHC 33.1 g/dL (30-55) 07/02/25 15:25 RDW 14.6 % (12.1-15.1) 07/02/25 15:25 Plt Count 97 10^3/cmm (157-399) L 07/02/25 15:25 MPV 11.1 fL (7.4-10.4) H 07/02/25 15:25 Neut % (Auto) 85.3 % 07/02/25 15:25 Lymph % (Auto) 8.3 % 07/02/25 15:25 Cavalier % (Auto) 5.5 % 07/02/25 15:25 Eos % (Auto) 0.1 % 07/02/25 15:25 Baso % (Auto) 0.2 % 07/02/25 15:25 Neut # (Auto) 9.84 10^3/uL (1.8-7.7) H 07/02/25 15:25 Lymph # (Auto) 1.0 10^3/uL (0.8-4.8) 07/02/25 15:25 Cavalier # (Auto) 0.6 10^3/uL (0.2-0.9) 07/02/25 15:25 Eos # (Auto) 0.0 10^3/uL (0.0-0.8) 07/02/25 15:25 Baso # (Auto) 0.0 10^3/uL (0.0-0.1) 07/02/25 15:25 Nucleated RBC % (auto) 0 % 07/02/25: Nucleated RBCs # 0.0 /100WBC 07/02/25 15:25 Sodium 135 mmol/L (136-145) L 07/02/25 15:25 Potassium 4.1 mmol/L (3.5-5.1) 07/02/25 15:25 Chloride 100 mmol/L (98-107) 07/02/25 15:25 Carbon Dioxide 22 mmol/L (22-29) 07/02/25 15:25 Anion Gap 17.1 (5-19) 07/02/25 15:25 BUN 21 mg/dL (8-23) 07/02/25 15:25 Creatinine 0.8 mg/dL (0.5-0.9) 07/02/25 15:25 GFR Calculation 72.2 mL/min (90-130) L 07/02/25 15:25 Glucose 107 mg/dL (65-115) 07/02/25 15:25 Calculated Osmolality 283 mOsm/kg (285-295) L 07/02/25 15:25 Lactic Acid 0.9 mmol/L (0.5-2.2) 07/02/25 15:25 Calcium 9.1 mg/dL (8.5-10.5) 07/02/25 15:25 Total Bilirubin 1.1 mg/dL (0.15-1.2) 07/02/25 15:25 AST 28 U/L (0-32) 07/02/25 15:25 ALT 8 U/L (0-33) 07/02/25 15:25 Alkaline Phosphatase 45 U/L (35-105) 07/02/25 15:25 Total Protein 7.4 g/dL (6.6-8.7) 07/02/25 15: Albumin 4.2 g/dL (3.5-5.2) 07/02/25 15: Globulin 3.2 g/dL (1.3-4.6) 07/02/25 15:25 Lipase 21 U/L (13-60) 07/02/25 15:25 Procalcitonin 0.05 ng/mL (0-0.5) 07/02/25 15:25 Urine Color Yellow (Yellow) 07/02/25 15:32 Urine Appearance Clear (CLEAR) 07/02/25 15:32 Urine pH 8.0 (5-7) A 07/02/25 15:32 Ur Specific Mesa 1.013 (1.005-1.030) 07/02/25 15:32 Urine Protein 3+ (Negative) A 07/02/25 15:32 Urine Glucose (UA) Negative (Normal) 07/02/25 15:32 Urine Ketones Negative (Negative) 07/02/25 15:32 Urine Blood 2+ (Negative) A 07/02/25 15:32 Urine Nitrate Negative (Negative) 07/02/25 15:32 Urine Bilirubin Negative (Negative) 07/02/25 15:32 Urine Urobilinogen 0.2 mg/dL (Negative) 07/02/25 15:32 Ur Leukocyte Esterase Negative (Negative) 07/02/25 15:32 Urine RBC 6-10 /hpf (0-2) 07/02/25 15:32 Urine WBC 0-5 /hpf (0-5) 07/02/25 15:32 Ur Squamous Epith Cells 0-5 /hpf (0-5) 07/02/25 15:32 Amorphous Sediment Not Reportable 07/02/25 15:32 Urine Bacteria None seen /hpf (NONE) 07/02/25 15:32 Hyaline Casts 3.71 /lpf 07/02/25 15:32 All radiology interpretation(s) finalized by discharge EKG Data EKG 1: Interpretation: Normal sinus rhythm, normal axis, QTc 389 ms Discharge Plan Discharge Patient Disposition: Home Clinical Impression: Pyelonephritis, Hydronephrosis of left kidney Hematuria Qualifiers: Hematuria type: other microscopic Qualified Code(s): R31.29 - Other microscopic hematuria Condition: Stable Prescriptions: New ondansetron 4 mg tablet,disintegrating 4 mg PO Q8H PRN (Reason: nausea and vomiting) 4 Days Qty: 14 0RF cefdinir 300 mg capsule 300 mg PO BID 10 Days Qty: 20 0RF No Action baclofen 10 mg tablet See Rx Instructions .ROUTE .COMPLEX Qty: 360 1RF Rx Instructions: Take 1 tablet by mouth in the morning, 10mg @15:00, and 20mg @22:00. carvedilol [Coreg] 6.25 mg tablet 6.25 mg PO Q12H Qty: 180 1RF Rx Instructions: must administer with a meal cyanocobalamin (vitamin B-12) 1,000 mcg/mL solution 1,000 mcg IM .monthly Qty: 2 2RF ergocalciferol (vitamin D2) 1,250 mcg (50,000 unit) capsule 50,000 unit PO Q7D Qty: 12 0RF Rx Instructions: on thursday fenofibrate micronized 134 mg capsule 134 mg PO DAILY@15 Qty: 90 1RF gabapentin 800 mg tablet 800 mg PO TID Qty: 360 1RF levothyroxine 50 mcg tablet 50 mcg PO DAILY@1500 Qty: 90 1RF Linzess 145 mcg capsule 145 mcg PO BEDTIME Qty: 90 1RF paroxetine HCl 30 mg tablet 30 mg PO DAILY Qty: 90 1RF (DME) BD Luer-Rae Syringe 3 mL 25 gauge x 1 syringe See Rx Instructions .ROUTE .MEDSUPPLY Qty: 5 0RF Rx Instructions: monthly meclizine 25 mg tablet 25 mg PO DAILY PRN (Reason: nausea and vomiting) Qty: 30 0RF terconazole 0.4 % cream 1 appful vaginal .at bedtime Qty: 45 0RF potassium gluconate 595 mg (99 mg) Tablet 595 mg PO TID@,, rxkqkng-gjchkycwsgtrj-xupzotmd [Excedrin Extra Strength] 250-250-65 mg Tablet 1 tab PO Q6H PRN (Reason: Pain) irbesartan 150 mg tablet 150 mg PO DAILY glycopyrrolate [Robinul] 1 mg tablet 1 mg PO TID Discharge Orders: Discharge ED (Routine); Ordered 07/02/25 Ordered By: Inna Mesa Referrals: Hitesh Pal, DENTAL CERAMIST ASSISTANT-C [Primary Care Provider, Family Practice] Discharge Diet: Clear Liquid Discharge Activity: Resume usual activity Patient Instructions: Clear Liquid Diet, Patient Portal & Evelia Instructions, Pyelonephritis Activity Restrictions/Additional Instructions: Clear liquid diet only today May advance to full liquid diet, then bland diet tomorrow if tolerating without nausea and vomiting Zofran/ondansetron has been sent to the pharmacy for nausea. Use cautiously up to 3 times a day only as needed for nausea and vomiting. Side effects include constipation, therefore less use is best Follow-up with your EGD tomorrow Your antibiotics have been sent to the [facility] pharmacy at there. Make sure to obtain in the morning and start in a.m. As discussed, unsure if there is a obstruction to your bladder since she refused the contrast CT, however it is not completely empting, and needs a dedicated visit to urologist. As well, there was blood in your urine that needs to be followed up with a urologist. Please check with Mitchell regarding this issue with your EGD tomorrow. Print Language: Taiwanese Coding Level of Care Code ED Seo Specialist for Antonia Medina
[2025-07-02 15:02] VITALS: BP 160/111; PULSE 86; RESP 16; TEMP 36.6; O2SAT 98; BMI 16.7
--- OUTSIDE RECORDS SUMMARY | 2025-07-02 15:03 | XMS_ITS | Encounter Summary ---
Author Organization 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
--- OUTSIDE RECORDS SUMMARY | 2025-07-02 15:03 | XMS_ITS | Encounter Summary ---
Author Organization [facility] Address [address] [place] [address] Care Team Providers Care Saddle And Harness Maker Name Role Phone Non-Staff, Physician Primary Care Provider Unava ilable Encounter Details Date Type Department Care Team (Late st Contact Info) Description 01/27/2012 Ancillary Orders [facility] 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
--- OUTSIDE RECORDS SUMMARY | 2025-07-02 15:03 | XMS_ITS | Encounter Summary ---
Author Organization [facility] Address [address] [place] [address] Care Team Providers Care Tin Stacker Name Role Phone Non-Staff, Physician Primary Care Provider Unava ilable Encounter Details Date Type Department Care Team (Late st Contact Info) Description 10/24/2008 Outpatient [facility] [address] [place] [address] Lelia Jacobo MD NO ADDRESS ON FILE Social History Tobacco Use Types Packs/Day Years Used Date Smoking Tobacco: Never Assessed Comments Unknown Sex and Gender Information Value Date Recorded Sex Assigned at Not on file 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
--- OUTSIDE RECORDS SUMMARY | 2025-07-02 15:03 | XMS_ITS | Encounter Summary ---
Author Organization [employer] [facility] Address [address] [place] [address] Phone Care Team Providers Care Kinesiology Professor Name Role Phone Dav Mayorga DO Primary Care Provider [phone] Encounter Details Date Type Department Care Team (Late st Contact Info) Description 04/18/2025 Orders Only [facility] [address] [place] [address] Serum creatinine above reference range [...] range documented in this encounter Care Teams Kinesiology Professor Relationship Specialty Start Date End Date Dav Mayorga DO [address] [place] [id number] PCP - General Family Medicine 04/17/25 documented as of this encounter
--- OUTSIDE RECORDS SUMMARY | 2025-07-02 15:03 | XMS_ITS | Encounter Summary ---
Author Organization [facility] Address [address] [place] [address] Care Team Providers Care Controller Instructor Name Role Phone Non-Staff, Physician Primary Care Provider Unava ilable Encounter Details Date Type Department Care Team (Latest Contact Info) Description 03/29/1998 Outpatient Historical [facility] Elias Chow Jr., MD [address] [place] [id number] Symptomatic menopausal or female climacteric states (Primary Dx) Social History Tobacco Use Types Packs/Day Years Used Date Smoking Tobacco: Never Assessed Comments Unknown Sex and Gender Information Value Date Recorded Sex Assigned at Not on file Legal 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
--- OUTSIDE RECORDS SUMMARY | 2025-07-02 15:03 | XMS_ITS | Encounter Summary ---
Author Organization [facility] Address [address] [place] [address] Care Team Providers Care Road Boss Name Role Phone Non-Staff, Physician Primary Care Provider Unava ilable Encounter Details Date Type Department Care Team (Late st Contact Info) Description 06/13/2002 Outpatient [facility] [address] [place] [id number] Martell Baugh MD NO ADDRESS ON FILE MYALGIA AND MYOSITIS NOS (Primary Dx) Social History Tobacco Use Types Packs/Day Years Used Date Smoking Tobacco: Never Assessed Comments Unknown Sex and Gender Information Value Date Recorded Sex Assigned at Not on file 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
--- OUTSIDE RECORDS SUMMARY | 2025-07-02 15:03 | XMS_ITS | Encounter Summary ---
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
--- OUTSIDE RECORDS SUMMARY | 2025-07-02 15:03 | XMS_ITS | Encounter Summary ---
Author Organization [facility] Address [address] [place] [address] Care Team Providers Care Embedded Developer Name Role Phone Non-Staff, Physician Primary Care Provider Unava ilable Encounter Details Date Type Department Care Team (Late st Contact Info) Description 02/22/2002 Outpatient [facility] [address] [place] [phone] Martell Baugh MD NO ADDRESS ON FILE CERVICALGIA (Primary Dx) Social History Tobacco Use Types Packs/Day Years Used Date Smoking Tobacco: Never Assessed Comments Unknown Sex and Gender Information Value Date Recorded Sex Assigned at Not on file Legal Sex Female 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
--- OUTSIDE RECORDS SUMMARY | 2025-07-02 15:03 | XMS_ITS | Encounter Summary ---
Author Organization [facility] Address [address] Travis: Epic Prelude ADT [place] [address] Care Team Providers Care Central Services Tech Name Role Phone Non-Staff, Physician Primary Care Provider Unava ilable Encounter Details Date Type Department Care Team ([facility] st Contact Info) Description 08/19/2001 Outpatient Historical Claudine Swanson, Elias Herrera MD [address] [place] [address] Social History Tobacco Use Types Packs/Day Years Used Date Smoking Tobacco: Never Assessed Comments Unknown Sex and Gender Information Value Date Recorded Sex Assigned at Not on file Legal Sex Female 7:06 AM PROJECT ASSISTANT Gender Identity Not on file Sexual Orientation Not on file documented as of this encounter Plan of Treatment Not on file documented as of this encounter Visit Diagnoses Not on filedocumented in this encounter Care Teams Central Services Tech Relationship Specialty Start Date End Date Non-Staff, Physician NO ADDRESS ON FILE PCP - General 04/15/12 documented as of this encounter
--- OUTSIDE RECORDS SUMMARY | 2025-07-02 15:03 | XMS_ITS | Encounter Summary ---
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
--- OUTSIDE RECORDS SUMMARY | 2025-07-02 15:03 | XMS_ITS | Encounter Summary ---
Author Organization [facility] Address [address] [place] [address] Phone Care Team Providers Care Rustic Terrazzo Setter Name Role Phone Dav Mayorga DO Primary Care Provider [phone] Reason for Referral * Consultation (Routine) - Closed Specialty Diagnoses / Procedures Referred By Lyssa pyle Referred To Contact Nephrology Diagnoses Serum creatinine above reference range Hitesh Pal ARNP [address] [place] [address] Phone: tel: fax: Debi Delgado MD [address] [facility] [address] [place] [address] Phone: tel: fax: Referral ID Status Reason Start Date Expiration Date V isits Requested Visits Authorized [id number] Closed Consult and Treat 04/17/2025 04/17/2026 1 1 Encounter Details Date Type Department Care Team (Latest Contact Info) Description 04/17/2025 Transcribe Orders [facility] [address] [facility] [address] [place] [address] Hitesh Pal ARNP [facility] [address] [place] [address] Serum creatinine above reference range (Primary Dx) [...] Primary documented in this encounter Care Teams Rustic Terrazzo Setter Relationship Specialty Start Date End Date Dav Mayorga DO [address] [place] [address] PCP - General Family Medicine 04/17/25 documented as of this encounter
--- OUTSIDE RECORDS SUMMARY | 2025-07-02 15:03 | XMS_ITS | Encounter Summary ---
Author Organization [facility] Address [address] [place] [address] Care Team Providers Care Sanforizer Name Role Phone Non-Staff, Physician Primary Care Provider Unava ilable Encounter Details Date Type Department Care Team (Latest Contact Info) Description 08/19/2001 Outpatient Historical [facility] [address] [facility] [address] [place] [address] Ana Smith MD NO ADDRESS ON FILE Other screening mammogram (Primary Dx) Social History Tobacco Use Types Packs/Day Years Used Date Smoking Tobacco: Never Assessed Comments Unknown Sex and Gender Information Value Date Recorded Sex Assigned at Not on file 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
--- OUTSIDE RECORDS SUMMARY | 2025-07-02 15:03 | XMS_ITS | Encounter Summary ---
Author Organization [facility] Address [address] [place] [address] Care Team Providers Care Metal Tester Name Role Phone Non-Staff, Physician Primary Care Provider Unava ilable Encounter Details Date Type Department Care Team (Latest Contact Info) Description 09/13/2002 Outpatient Historical [facility] [address] [facility] [address] [place] [address] Franklin Welsh MD NO ADDRESS ON FILE SCREENING MAMM-MAILG NEOPL-OTHER (Primary Dx) Social History Tobacco Use Types Packs/Day Years Used Date Smoking Tobacco: Never Assessed Comments Unknown Sex and Gender Information Value Date Recorded Sex Assigned at Not on file 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
--- OUTSIDE RECORDS SUMMARY | 2025-07-02 15:03 | XMS_ITS | Encounter Summary ---
Author Organization [facility] Address [address] [place] [address] Care Team Providers Care Institute Scientist Name Role Phone Non-Staff, Physician Primary Care Provider Unava ilable Encounter Details Date Type Department Care Team (Latest Contact Info) Description 03/18/2002 Outpatient Historical [facility] [address] [place] [address] Juancarlos Maier MD NO ADDRESS ON FILE CERVICALGIA (Primary Dx) Social History Tobacco Use Types Packs/Day Years Used Date Smoking Tobacco: Never Assessed Comments Unknown Sex and Gender Information Value Date Recorded Sex Assigned at Not on file 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
--- OUTSIDE RECORDS SUMMARY | 2025-07-02 15:03 | XMS_ITS | Encounter Summary ---
Author Organization [facility] Address [address] [place] [address] Care Team Providers Care Official Court Reporter Name Role Phone Non-Staff, Physician Primary Care Provider Unava ilable Encounter Details Date Type Department Care Team (Late st Contact Info) Description 05/03/2002 Outpatient Historical [facility] [address] [place] [address] Martell Baugh MD NO ADDRESS ON FILE MYALGIA AND MYOSITIS NOS (Primary Dx) Social History Tobacco Use Types Packs/Day Years Used Date Smoking Tobacco: Never Assessed Comments Unknown Sex and Gender Information Value Date Recorded Sex Assigned at Not on file 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
--- OUTSIDE RECORDS SUMMARY | 2025-07-02 15:03 | XMS_ITS | Encounter Summary ---
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
--- OUTSIDE RECORDS SUMMARY | 2025-07-02 15:03 | XMS_ITS | Encounter Summary ---
Author Organization [facility] Address [address] [place] [address] Care Team Providers Care Access Nurse Name Role Phone Non-Staff, Physician Primary Care Provider Unava ilable Encounter Details Date Type Department Care Team (Latest Contact Info) Description 08/12/2001 Outpatient Historical [facility] Cody Lofton MD [address] [place] [address] Headache(784.0) (Primary Dx); Cervicalgia Social History Tobacco Use Types Packs/Day Years Used Date Smoking Tobacco: Never Assessed Comments Unknown Sex and Gender Information Value Date Recorded Sex Assigned at Not on file Legal Sex Female 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
--- OUTSIDE RECORDS SUMMARY | 2025-07-02 15:03 | XMS_ITS | Encounter Summary ---
Author Organization [facility] Address [address] [place] [address] Care Team Providers Care Filing And Polishing Supervisor Name Role Phone Non-Staff, Physician Primary Care Provider Unava ilable Encounter Details Date Type Department Care Team (Latest Contact Info) Description 09/13/2002 Outpatient [facility] [address] [place] [address] Elias Chow Jr., MD [address] [place] [address] SCREENING MAMM-MAILG NEOPL-OTHER (Primary Dx) Social History Tobacco Use Types Packs/Day Years Used Date Smoking Tobacco: Never Assessed Comments Unknown Sex and Gender Information Value Date Recorded Sex Assigned at Not on file 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
--- OUTSIDE RECORDS SUMMARY | 2025-07-02 15:03 | XMS_ITS | Clinical Summary ---
Author Organization [facility] Address [address] [place] [address] Phone Care Team Providers Care Break Out Worker Name Role Phone Dav Mayorga Primary Care Provider [phone] Encounters Date Type Department Care Team Description 05/22/2025 Documentation Only [facility] [address] [place] [address] Debi Delgado MD 04/18/2025 Orders Only [facility] [address] [place] [address] Serum creatinine above reference range 04/17/2025 Office Communication [facility] [address] [place] [address] Debi Delgado MD 04/17/2025 Transcribe Orders [facility] [address] [place] [address] Hitesh Pal ARNP Serum creatinine [...] patient's age to complete this topic [id number] Medicaid [place] ([id number]) Care Teams Break Out Worker Relationship Specialty Start Date End Date Dav Mayorga DO [address] [place] [address] PCP - General Family Medicine 04/17/25
--- OUTSIDE RECORDS SUMMARY | 2025-07-02 15:03 | XMS_ITS | Encounter Summary ---
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
--- OUTSIDE RECORDS SUMMARY | 2025-07-02 15:03 | XMS_ITS | Encounter Summary ---
Author Organization [facility] Address [address] 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
--- OUTSIDE RECORDS SUMMARY | 2025-07-02 15:03 | XMS_ITS | Encounter Summary ---
Author Organization [facility] Address [address] [place] [address] Care Team Providers Care Salesperson Women'S Hats Name Role Phone Non-Staff, Physician Primary Care Provider Unava ilable Encounter Details Date Type Department Care Team (Latest Contact Info) Description 12/04/1998 Outpatient Historical [facility] Elias Chow Jr., MD [address] [place] [address] Gynecologic examination (Primary Dx); Cystitis, unspecified Social History Tobacco Use Types Packs/Day Years Used Date Smoking Tobacco: Never Assessed Comments Unknown Sex and Gender Information Value Date Recorded Sex Assigned at Not on file Legal 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
--- OUTSIDE RECORDS SUMMARY | 2025-07-02 15:03 | XMS_ITS | Encounter Summary ---
Author Organization [facility] Address [address] [place] [address] Care Team Providers Care Gill Box Operator Name Role Phone Non-Staff, Physician Primary Care Provider Unava ilable Encounter Details Date Type Department Care Team (Latest Contact Info) Description 11/19/2001 Outpatient Historical [facility] Luis Felipe Sanford MD [address] [place] [address] CERVICALGIA (Primary Dx); EDEMA Social History Tobacco Use Types Packs/Day Years Used Date Smoking Tobacco: Never Assessed Comments Unknown Sex and Gender Information Value Date Recorded Sex Assigned at Not on file Legal Sex Female 7:06 AM MEDICATION COORDINATOR Gender Identity Not on file Sexual Orientation Not on file documented as of this encounter Plan of Treatment Not on file documented as of this encounter Visit Diagnoses Diagnosis Cervicalgia- Primary Edema documented in this encounter Care Teams Gill Box Operator Relationship Specialty Start Date End Date Non-Staff, Physician NO ADDRESS ON FILE PCP - General 04/15/12 documented as of this encounter
--- OUTSIDE RECORDS SUMMARY | 2025-07-02 15:03 | XMS_ITS | Clinical Summary ---
Author Organization [facility] Address [address] [place] [facility] [place] [address] Phone Care Team Providers Care Bell Staff Name Role Phone Non-Staff, Physician Primary Care [...] tablet Take 25 mcg by mouth daily mainframe programmer. 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 Gender Identity Not on file Sexual Orientation Not on file Occupation Industry Job Start Date Job End Date Not on file Not on file Not on file Not on file Last Filed Vital Signs Vital Sign Reading Time Taken Comments Blood Pressure 140/82 11/17/2012 8:44 AM MOLD MAKER HELPER Pulse 74 11/17/2012 8:44 AM MOLD MAKER HELPER Temperature - - Respiratory Rate - - Oxygen Saturation - - Inhaled Oxygen Concentration - - Weight 66.2 kg (146 lb) 11/17/2012 8:44 AM MOLD MAKER HELPER Height 162.6 cm (5' 4 ) 11/17/2012 8:44 AM MOLD MAKER HELPER Body Mass Index 25.06 11/17/2012 8:44 AM MOLD MAKER HELPER Plan of Treatment Health Maintenance Due Date [...] 2036 [address] [id number] MEDICARE PART A AND B [place]ICAID [place] Care Teams Bell Staff Relationship Specialty Start Date End Date Non-Staff, Physician NO ADDRESS ON FILE PCP - General 04/15/12
[2025-07-02 15:24] VITALS: BP 160/111; O2SAT 94
[2025-07-02 15:31] LABS: Hematocrit 47.7 % (36-47); Hemoglobin 15.80 g/dL (11.27-16.99); Mean Corpuscular HGB Conc 33.1 g/dL (30-55); Mean Corpuscular Hemoglobin 33.4 pg (27-33); Mean Corpuscular Volume 100.8 fl (85-98); Nucleated Red Blood Cells % 0 %; Platelet Count 97 10^3/cmm (157-399); Red Blood Count 4.73 10^6/uL (3.85-5.65); White Blood Count 11.54 10^3/uL (3.29-11.43)
[2025-07-02 15:48] LABS: Alanine Aminotransferase 8 U/L (0-33); Albumin Level 4.2 g/dL (3.5-5.2); Alkaline Phosphatase 45 U/L (35-105); Anion Gap 17.1 (5-19); Aspartate Amino Transferase 28 U/L (0-32); Blood Urea Nitrogen 21 mg/dL (8-23); Calcium 9.1 mg/dL (8.5-10.5); Carbon Dioxide 22 mmol/L (22-29); Chloride 100 mmol/L (98-107); Creatinine Clr Calc Pharmacy 57.4850; Globulin 3.2 g/dL (1.3-4.6); Glucose 107 mg/dL (65-115); Lipase 21 U/L (13-60); Osmolality Calculated 283 mOsm/kg (285-295); Potassium 4.1 mmol/L (3.5-5.1); Sodium 135 mmol/L (136-145); Total Protein 7.4 g/dL (6.6-8.7)
[2025-07-02 15:49] LABS: Lactic Sepsis W/Reflex 0.9 mmol/L (0.5-2.2)
--- NOTE | 2025-07-02 15:53 | CTR_ITS ---
PROCEDURE INFORMATION: Exam: CT Abdomen And Pelvis Without Contrast Exam date and time: 07/02/2025 4:22 PM Age: 65 years old Clinical indication: Nausea and vomiting; Abdominal pain; Generalized; Prior surgery; Surgery date: 6+ months; Surgery type: Hyster, gb, spinal fusion; Additional info: Abdominal pain, nausea, vomiting TECHNIQUE: Imaging protocol: Computed tomography of the abdomen and pelvis without contrast. Radiation optimization: All CT scans at this facility use at least one of these dose optimization techniques: automated exposure control; mA and/or kV adjustment per patient size (includes targeted exams where dose is matched to clinical indication); or iterative reconstruction. COMPARISON: CT abdomen pelvis wo con [id number] 05/14/2025 12:14 PM RADIATION DOSE METRICS: Total DLP (mGy-cm): 385.69 FINDINGS: Coronary arteries: Coronary calcifications are seen. Liver: Normal. No mass. Gallbladder and biliary ducts: Post cholecystectomy changes are seen. Pancreas: Normal. No ductal dilation. Spleen: Normal. No splenomegaly. Adrenal glands: Normal. No mass. Kidneys and ureters: Again seen is moderate left-sided hydronephrosis. There is a questionable 5 mm hyperdensity in the left proximal ureter (4/32). Evaluation is suboptimal due to adjacent metallic artifacts. New left-sided perinephric stranding changes are seen. Stomach and bowel: No small bowel loop dilatation. Appendix: Appendix is not visualized. Intraperitoneal space: Unremarkable. No free air. No significant fluid collection. Vasculature: Mild calcified atherosclerotic changes are seen throughout the abdominal aorta. Lymph nodes: Unremarkable. No enlarged lymph nodes. Urinary bladder: Unremarkable as visualized. Reproductive: Post hysterectomy changes are seen. Bones/joints: Diffuse spinal hardware is are seen. Soft tissues: Unremarkable. CT/CT abdomen pelvis wo con [id number] IMPRESSION: 1. Again seen is moderate left-sided hydronephrosis. There is a questionable 5 mm hyperdensity in the left proximal ureter (4/32). Evaluation is suboptimal due to adjacent metallic artifacts. Obstructing stone can not be excluded. 2. New left-sided perinephric stranding changes are seen. Pyelonephritis can not be excluded. Clinical correlation is advised. 3. Coronary calcifications. 4. Mild calcified atherosclerotic changes are seen throughout the abdominal aorta. COMMENTS: Consistent with the [employer]'s Incidental Findings Committee white paper (J Am Jessie Radiol 2018): Any incidental renal lesion less than 1 cm or classified as too small to characterize, or any incidental cystic renal lesion characterized as simple-appearing, is likely benign. No follow-up imaging is recommended for these lesions per consensus recommendations based on imaging criteria.
[2025-07-02 15:55] LABS: Procalcitonin 0.05 ng/mL (0-0.5)
[2025-07-02 16:00] LABS: Glucose Urine UA Negative (Normal); Nitrate Urine Negative (Negative); Specific Gravity, Urine 1.013 (1.005-1.030)
[2025-07-02 16:01] VITALS: BP 160/111; O2SAT 95
[2025-07-02 16:05] LABS: Add Urine Microscopic? YES
--- NOTE | 2025-07-02 16:05 | PC.PHAR ---
Pt verified her own medications. Pt is unsure when she last took b 12 shot or what day she takes vitamin d2
[2025-07-02] MEDS: pantoprazole 40 mg SDV IVP (16:16)
[2025-07-02] MEDS: cefTRIAXone 1,000 mg SDV 1000 MG IVP (16:57)
[2025-07-02] MEDS: diphenhydrAMINE 50 mg/mL SDV 1mL 25 MG IVP (17:16)
[2025-07-02] MEDS: ondansetron hcl ODT 4 mg Tab PO ×2 (17:22→17:23)
[2025-07-02 17:24] VITALS: BP 137/111; PULSE 90; RESP 17; O2SAT 96
[2025-07-02 17:26] VITALS: BP 137/111; O2SAT 93
== END 2025-07-02 18:53 | disposition home or self-care (01) ==
PROVIDERS: Emergency Provider Physician Assistant; PCP Nurse Practitioner
DX: N13.30 Unspecified hydronephrosis (principal); N12 Tubulo-interstitial nephritis, not specified as acute or chronic; R31.29 Other microscopic hematuria; Z79.82 Long term (current) use of aspirin; Z72.0 Tobacco use; J44.9 Chronic obstructive pulmonary disease, unspecified; I25.10 Atherosclerotic heart disease of native coronary artery without angina pectoris; E78.2 Mixed hyperlipidemia; I11.0 Hypertensive heart disease with heart failure; I50.9 Heart failure, unspecified
CPT/HCPCS: 36415; 74022; 74176; 80053; 81001; 83605; 83690; 84145; 85025; 87086; 93005; 96374; 96375; 99285; J0696; J0780; J1200; J2470; J7120; Q0162

== ENCOUNTER 2025-07-05 20:52 | Inpatient (IN) | payer MEDICARE, MEDICAID, SELFPAY ==
[2025-07-05] VITALS (17 sets, daily range): BP systolic 65–179; BP diastolic 39–96; PULSE 55–90; RESP 6–22; TEMP 35.1; O2SAT 97–100; BMI 13.3
--- NOTE | 2025-07-05 20:57 | CTR_ITS ---
PROCEDURE INFORMATION: Exam: CT Head Without Contrast Exam date and time: 07/05/2025 10:03 PM Age: 65 years old Clinical indication: Stroke-like symptoms; Altered mental status/memory loss; Additional info: AMS TECHNIQUE: Imaging protocol: Computed tomography of the head without contrast. Radiation optimization: All CT scans at this facility use at least one of these dose optimization techniques: automated exposure control; mA and/or kV adjustment per patient size (includes targeted exams where dose is matched to clinical indication); or iterative reconstruction. Other technique: STROKE PROTOCOL was implemented. COMPARISON: CT head wo con* [id number] 09/16/2024 1:59 AM RADIATION DOSE METRICS: Total DLP (mGy-cm): 1243.38 FINDINGS: Brain: There are bilateral periventricular white matter and centrum semiovale hypodensities, consistent with chronic ischemic small vessel disease. No recent infarct, intracranial bleed or mass effect. Cerebral ventricles: No ventriculomegaly. Paranasal sinuses: Visualized sinuses are unremarkable. No fluid levels. Mastoid air cells: Visualized mastoid air cells are well aerated. Bones: Unremarkable. No acute fracture. Soft tissues: Unremarkable. CT/CT head wo con* [id number] IMPRESSION: No large territorial infarct or intracranial bleed. ASSESSMENT: ASPECTS ([place] Stroke Program Early CT Score) is 10.
--- NOTE | 2025-07-05 20:57 | XRR_ITS ---
PROCEDURE INFORMATION: Exam: XR Chest Exam date and time: 07/05/2025 9:44 PM Age: 65 years old Clinical indication: Shortness of breath; Additional info: Possible sepsis TECHNIQUE: Imaging protocol: Radiologic exam of the chest. Views: 1 view. COMPARISON: CR XR chest 1V portable [id number] 09/15/2024 12:04 PM FINDINGS: Tubes, catheters and devices: Posterior instrumentation hardware of the thoracolumbar spine for scoliotic curvature is seen. Right internal jugular central line tip is at the superior cavoatrial junction. Lungs: Unremarkable. No consolidation. Pleural spaces: Unremarkable. No pleural effusion. No pneumothorax. Heart/Mediastinum: Unremarkable. No cardiomegaly. Bones/joints: Unremarkable. XR/XR chest 1V portable [id number] IMPRESSION: No acute cardiopulmonary process.
--- NOTE | 2025-07-05 20:59 | ECG_ITS ---
[facility] Test Date: 2025-07-05 Pat Name: Viola Ennis Department: Room: Gender: Female Bill Hiker: : 1960 Requested By: Yoselin Skaggs Order Number: [id number] Reading MD: GIULIANA MCCORD Measurements Intervals [place] Rate: 57 P: 75 [place]: 170 QRS: 47 QRSD: 82 T: 66 QT: 491 QTc: 480 Interpretive Statements SINUS BRADYCARDIA ST ELEVATION, CONSIDER repolarization abnormality Compared to ECG 07/02/2025 15:17:38 ST (T wave) deviation now present Myocardial infarct finding now present Sinus rhythm no longer present Electronically Signed On 07-07-2025 20:23:18 CDT by GIULIANA MCCORD [email or web address] [id number]
--- NOTE | 2025-07-05 21:09 | ECG_ITS ---
[facility] Test Date: 2025-07-05 Pat Name: Viola Ennis Department: Room: Gender: Female Announcer: : 1960 Requested By: Yoselin Skaggs Order Number: [id number] Duke MD: Ernesto Gutiérrez M.D. Measurements Intervals [place] Rate: 60 P: 79 HI: 181 QRS: 37 QRSD: 85 T: 59 QT: 460 QTc: 463 Interpretive Statements SINUS RHYTHM MILD ST ELEVATION, POSSIBLE INJURY IN THE INFERIOR LEADS Compared to ECG 07/05/2025 20:59:27 No significant change Electronically Signed On 07-05-2025 22:43:22 CDT by Ernesto Gutiérrez M.D. [email or web address] [id number]
--- OUTSIDE RECORDS SUMMARY | 2025-07-05 21:12 | XMS_ITS | Encounter Summary ---
Author Organization [facility] Address [address] [place] [address] Care Team Providers Care Land Commissioner Name Role Phone Non-Staff, Physician Primary Care Provider Unava ilable Encounter Details Date Type Department Care Team (Latest Contact Info) Description 09/13/2002 Outpatient Historical [facility] [address] [facility] [address] [place] [address] Franklin Welsh MD NO ADDRESS ON FILE SCREENING MAMM-MAILG NEOPL-OTHER (Primary Dx) Social History Tobacco Use Types Packs/Day Years Used Date Smoking Tobacco: Never Assessed Comments Unknown Sex and Gender Information Value Date Recorded Sex Assigned at Not on file Legal Sex Female 7: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
--- OUTSIDE RECORDS SUMMARY | 2025-07-05 21:12 | XMS_ITS | Encounter Summary ---
Author Organization [facility] Address [address] [place] [address] Care Team Providers Care Vendette Name Role Phone Non-Staff, Physician Primary Care Provider Unava ilable Encounter Details Date Type Department Care Team (Late st Contact Info) Description 10/24/2008 Outpatient [facility] Breast Center [facility] [address] [place] [address] Lelia Jacobo MD NO ADDRESS ON FILE Social History Tobacco Use Types Packs/Day Years Used Date Smoking Tobacco: Never Assessed Comments Unknown Sex and Gender Information Value Date Recorded Sex Assigned at Not on file Legal Sex Female 7:06 AM CABINET PROFESSIONAL Gender Identity Not on file Sexual Orientation Not on file documented as of this encounter Plan of Treatment Not on file documented as of this encounter Visit Diagnoses Not on filedocumented in this encounter Care Teams Vendette Relationship Specialty Start Date End Date Non-Staff, Physician NO ADDRESS ON FILE PCP - General 04/15/12 documented as of this encounter
--- OUTSIDE RECORDS SUMMARY | 2025-07-05 21:12 | XMS_ITS | Encounter Summary ---
Author Organization [facility] Address [address] [place] [address] Care Team Providers Care Content Management Specialist Name Role Phone Non-Staff, Physician Primary Care Provider Unava ilable Encounter Details Date Type Department Care Team (Latest Contact Info) Description 09/13/2002 Outpatient [facility] Breast Center [facility] [address] [place] [address] Elias Chow Jr., MD [address] [place] [address] SCREENING MAMM-MAILG NEOPL-OTHER (Primary Dx) Social History Tobacco Use Types Packs/Day Years Used Date Smoking Tobacco: Never Assessed Comments Unknown Sex and Gender Information Value Date Recorded Sex Assigned at Not on file Legal Sex Female 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
--- OUTSIDE RECORDS SUMMARY | 2025-07-05 21:12 | XMS_ITS | Clinical Summary ---
Author Organization [facility] Address [address] [place] [address] Phone Care Team Providers Care Cube Machine Tender Name Role Phone Non-Staff, Physician [...] times a day Active HYDROcodone-aceta minophen (LORCET ) 10-650 mg Oral TabIndications:Bl eeding disorder Take [...] tablet Take 25 mcg by mouth daily traveling sales executive. Active fentaNYL (DURAGESIC) 50 mcg/hr Transdermal patch [...] on file Legal Sex Female 7:06 AM EXHIBITION CARVER Gender Identity Not on file Sexual Orientation Not on file Occupation Industry Job Start Date Job End Date Not on file Not on file Not on file Not on file Last Filed Vital Signs Vital Sign Reading Time Taken Comments Blood Pressure 140/82 11/17/2012 8:44 AM EXHIBITION CARVER Pulse 74 11/17/2012 8:44 AM EXHIBITION CARVER Temperature - - Respiratory Rate - - Oxygen Saturation - - Inhaled Oxygen Concentration - - Weight 66.2 kg (146 lb) 11/17/2012 8:44 AM EXHIBITION CARVER Height 162.6 cm (5' 4 ) 11/17/2012 8:44 AM EXHIBITION CARVER Body Mass Index 25.06 11/17/2012 8:44 AM EXHIBITION CARVER Plan of Treatment Health Maintenance Due Date [...] 2036 [address] [id number] MEDICARE PART A AND B [place]ID [place] Care Teams Cube Machine Tender Relationship Specialty Start Date End Date Non-Staff, Physician NO ADDRESS ON FILE PCP - General 04/15/12
--- OUTSIDE RECORDS SUMMARY | 2025-07-05 21:12 | XMS_ITS | Encounter Summary ---
Author Organization [facility] Address [address] [place] [address] Care Team Providers Care Accounts Payable Technician Name Role Phone Non-Staff, Physician Primary Care Provider Unava ilable Encounter Details Date Type Department Care Team (Late st Contact Info) Description 02/22/2002 Outpatient Historical [facility] [address] [place] [address] Martell Baugh MD NO ADDRESS ON FILE CERVICALGIA (Primary Dx) Social History Tobacco Use Types Packs/Day Years Used Date Smoking Tobacco: Never Assessed Comments Unknown Sex and Gender Information Value Date Recorded Sex Assigned at Not on file Legal Sex Female 7:06 AM 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
--- OUTSIDE RECORDS SUMMARY | 2025-07-05 21:12 | XMS_ITS | Encounter Summary ---
Author Organization [facility] Address [address] [place] [address] Care Team Providers Care Bleach Machine Operator Name Role Phone Non-Staff, Physician Primary Care Provider Unava ilable Encounter Details Date Type Department Care Team (Late st Contact Info) Description 01/27/2012 Ancillary Orders [facility] [address] [place] [address] [place] [address] Nehemias Hung MD [address] [place] [address] Pain Social History Tobacco Use Types Packs/Day Years Used Date Smoking Tobacco: Every Day Cigarettes 1 30 Alcohol Use Standard Drinks/Week Comments No 0 (1 standard drink = 0.6 oz pur e alcohol) Comments No Sex and Gender Information Value Date Recorded Sex Assigned at Not on file Legal Sex Female 7:[address] V[address]OR Gender Identity Not on file Sexual Orientation [...] pain documented in this encounter Care Teams Bleach Machine Operator Relationship Specialty Start Date End Date Non-Staff, Physician NO ADDRESS ON FILE PCP - General 04/15/12 documented as of this encounter
--- OUTSIDE RECORDS SUMMARY | 2025-07-05 21:12 | XMS_ITS | Encounter Summary ---
Author Organization [facility] Address [address] [place] [address] Care Team Providers Care Ore Crushing Dust Collector Name Role Phone Non-Staff, Physician Primary Care Provider Unava ilable Encounter Details Date Type Department Care Team (Latest Contact Info) Description 08/12/2001 Outpatient Historical [facility] Cody Lofton MD [address] [place] [address] Headache(784.0) (Primary Dx); Cervicalgia Social History Tobacco Use Types Packs/Day Years Used Date Smoking Tobacco: Never Assessed Comments Unknown Sex and Gender Information Value Date Recorded Sex Assigned at Not on file Legal Sex Female 7:06 AM MARKETING TECHNOLOGY COORDINATOR Gender Identity Not on file Sexual Orientation Not on file documented as of this encounter Plan of Treatment Not on file documented as of this encounter Visit Diagnoses Diagnosis Headache(784.0)- Primary Headache Cervicalgia documented in this encounter Care Teams Ore Crushing Dust Collector Relationship Specialty Start Date End Date Non-Staff, Physician NO ADDRESS ON FILE PCP - General 04/15/12 documented as of this encounter
--- OUTSIDE RECORDS SUMMARY | 2025-07-05 21:12 | XMS_ITS | Encounter Summary ---
Author Organization [facility] Address [address] [place] [address] Care Team Providers Care French Instructor Name Role Phone Non-Staff, Physician Primary Care Provider Unava ilable Encounter Details Date Type Department Care Team (Late st Contact Info) Description 06/13/[address] [facility] [address] [place] [address] Martell Baugh MD NO ADDRESS ON FILE MYALGIA AND MYOSITIS NOS (Primary Dx) Social History Tobacco Use Types Packs/Day Years Used Date Smoking Tobacco: Never Assessed Comments Unknown Sex and Gender Information Value Date Recorded Sex Assigned at Not on file Legal Sex Female 7:06 AM CRIME SCENE INVESTIGATOR Gender Identity Not on file Sexual Orientation Not on file documented as of this encounter Plan of Treatment Not on file documented as of this encounter Visit Diagnoses Diagnosis Myalgia and myositis, unspecified- Primary Mylagia and myositis, unspecified documented in this encounter Care Teams French Instructor Relationship Specialty Start Date End Date Non-Staff, Physician NO ADDRESS ON FILE PCP - General 04/15/12 documented as of this encounter
--- OUTSIDE RECORDS SUMMARY | 2025-07-05 21:12 | XMS_ITS | Encounter Summary ---
Author Organization [facility] Address [address] [facility] [place]: Epic Prelude ADT [place] [address] Care Team Providers Care Real Estate Branch Manager Name Role Phone Non-Staff, Physician Primary Care Provider Unava ilable Encounter Details Date Type Department Care Team ([facility] st Contact Info) Description 08/19/2001 Outpatient Historical Claudine Swanson, Elias Herrera MD [address] [place] [address] Social History Tobacco Use Types Packs/Day Years Used Date Smoking Tobacco: Never Assessed Comments Unknown Sex and Gender Information Value Date Recorded Sex Assigned at Not on file Legal Sex Female 7:06 AM TESTER WASTE DISPOSAL LEAKAGE Gender Identity Not on file Sexual Orientation [...]
--- OUTSIDE RECORDS SUMMARY | 2025-07-05 21:12 | XMS_ITS | Encounter Summary ---
Author Organization [facility] Address [address] [facility] [address] [place] [address] Phone Care Team Providers Care Tax Associate Name Role Phone Dav Mayorga DO Primary Care Provider [phone] Reason for Referral * Consultation (Routine) - Closed Specialty Diagnoses / Procedures Referred By Lyssa pyle Referred To Contact Nephrology Diagnoses Serum creatinine above reference range Hitesh Pal ARNP [address] [place] [address] Phone: tel: fax: Debi Delgado MD [address] [facility] [address] [place] [address] Phone: tel: fax: Referral ID Status Reason Start Date Expiration Date V isits Requested Visits Authorized [id number] Closed Consult and Treat 04/17/2025 04/17/2026 1 1 Encounter Details Date Type Department Care Team (Latest Contact Info) Description 04/17/2025 Transcribe Orders [facility] [address] [facility] [address] [place] [address] Hitesh Pal ARNP [facility] [address] [place] [address] Serum creatinine above reference range (Primary [...] Primary documented in this encounter Care Teams Tax Associate Relationship Specialty Start Date End Date Dav Mayorga DO [address] [place] [address] PCP - General Family Medicine 04/17/25 documented as of this encounter
--- OUTSIDE RECORDS SUMMARY | 2025-07-05 21:12 | XMS_ITS | Encounter Summary ---
Author Organization [facility] Address [address] [facility] [facility] Attn: Epic Prelude ADT [place] [address] Care Team Providers Care Deputy Probation Officer Name Role Phone Non-Staff, Physician Primary [...] on file Legal Sex Female 7:06 AM DISPLAY CARVER Gender Identity Not on file Sexual Orientation Not on file documented as of this encounter Plan of Treatment Not on file documented as of this encounter Visit Diagnoses Not on filedocumented in this encounter Care Teams Deputy Probation Officer Relationship Specialty Start Date End Date Non-Staff, Physician NO ADDRESS ON FILE PCP - General 04/15/12 documented as of this encounter
--- OUTSIDE RECORDS SUMMARY | 2025-07-05 21:12 | XMS_ITS | Encounter Summary ---
Author Organization [facility] Address [address] [facility] Attn: Epic Prelude ADT [place] [address] Care Team Providers Care Guide Tour Name Role Phone Non-Staff, Physician Primary Care [...] on file Legal Sex Female 7:06 AM BRUSH OPERATOR Gender Identity Not on file Sexual Orientation Not on file documented as of this encounter Plan of Treatment Not on file documented as of this encounter Visit Diagnoses Not on filedocumented in this encounter Care Teams Guide Tour Relationship Specialty Start Date End Date Non-Staff, Physician NO ADDRESS ON FILE PCP - General 04/15/12 documented as of this encounter
--- OUTSIDE RECORDS SUMMARY | 2025-07-05 21:12 | XMS_ITS | Encounter Summary ---
Author Organization [facility] Address [address] [place] [address] Phone Care Team Providers Care Technology Sales Consultant Name Role Phone Dav Mayorga DO Primary Care Provider Encounter Details Date Type Department Care Team (Late st Contact Info) Description 04/18/2025 Orders Only [facility] [address] [place] [address] Serum creatinine above reference range [...] range documented in this encounter Care Teams Technology Sales Consultant Relationship Specialty Start Date End Date Dav Mayorga DO [address] [place] [id number] PCP - General Family Medicine 04/17/25 documented as of this encounter
--- OUTSIDE RECORDS SUMMARY | 2025-07-05 21:12 | XMS_ITS | Encounter Summary ---
Author Organization [facility] Address [address] [place] [address] Care Team Providers Care Coal Deliverer Name Role Phone Non-Staff, Physician Primary Care Provider Unava ilable Encounter Details Date Type Department Care Team (Late st Contact Info) Description 05/03/2002 Outpatient Historical [facility] [address] [place] [address] Martell Baugh MD NO ADDRESS ON FILE MYALGIA AND MYOSITIS NOS (Primary Dx) Social History Tobacco Use Types Packs/Day Years Used Date Smoking Tobacco: Never Assessed Comments Unknown Sex and Gender Information Value Date Recorded Sex Assigned at Not on file Legal Sex Female 7:06 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
--- OUTSIDE RECORDS SUMMARY | 2025-07-05 21:12 | XMS_ITS | Encounter Summary ---
Author Organization [facility] Address [address] [facility] Attn: Epic Prelude ADT [place] [address] Care Team Providers Care Manager Instrumentation Name Role Phone Non-Staff, Physician Primary Care [...] on file Legal Sex Female 7:06 AM PATTERN SETTER Gender Identity Not on file Sexual Orientation Not on file documented as of this encounter Plan of Treatment Not on file documented as of this encounter Visit Diagnoses Not on filedocumented in this encounter Care Teams Manager Instrumentation Relationship Specialty Start Date End Date Non-Staff, Physician NO ADDRESS ON FILE PCP - General 04/15/12 documented as of this encounter
--- OUTSIDE RECORDS SUMMARY | 2025-07-05 21:12 | XMS_ITS | Encounter Summary ---
Author Organization [facility] Address [address] [place] [address] Care Team Providers Care Hospice Case Manager Name Role Phone Non-Staff, Physician Primary Care Provider Unava ilable Encounter Details Date Type Department Care Team (Latest Contact Info) Description 03/29/1998 Outpatient Historical [facility] Elias Chow Jr., MD [address] [place] [phone] Symptomatic menopausal or female climacteric states (Primary Dx) Social History Tobacco Use Types Packs/Day Years Used Date Smoking Tobacco: Never Assessed Comments Unknown Sex and Gender Information Value Date Recorded Sex Assigned at Not on file Legal Sex Female 7:06 AM LIDDING MACHINE OPERATOR Gender Identity Not on file Sexual Orientation Not on file documented as of this encounter Plan of Treatment Not on file documented as of this encounter Visit Diagnoses Diagnosis Symptomatic menopausal or female climacteric states- Primary documented in this encounter Care Teams Hospice Case Manager Relationship Specialty Start Date End Date Non-Staff, Physician NO ADDRESS ON FILE PCP - General 04/15/12 documented as of this encounter
--- OUTSIDE RECORDS SUMMARY | 2025-07-05 21:12 | XMS_ITS | Encounter Summary ---
Author Organization [facility] Address [address] [place] [address] Care Team Providers Care Plugging Machine Operator Name Role Phone Non-Staff, Physician Primary Care Provider Unava ilable Encounter Details Date Type Department Care Team (Latest Contact Info) Description 12/04/1998 Outpatient Historical [facility] Elias Chow Jr., MD [address] [place] [address] Gynecologic examination (Primary Dx); Cystitis, unspecified Social History Tobacco Use Types Packs/Day Years Used Date Smoking Tobacco: Never Assessed Comments Unknown Sex and Gender Information Value Date Recorded Sex Assigned at Not on file Legal Sex Female 7:06 AM CLERICAL ADJUSTER Gender Identity Not on file Sexual Orientation Not on file documented as of this encounter Plan of Treatment Not on file documented as of this encounter Visit Diagnoses Diagnosis Gynecologic examination- Primary Gynecological examination Cystitis, unspecified documented in this encounter Care Teams Plugging Machine Operator Relationship Specialty Start Date End Date Non-Staff, Physician NO ADDRESS ON FILE PCP - General 04/15/12 documented as of this encounter
--- OUTSIDE RECORDS SUMMARY | 2025-07-05 21:12 | XMS_ITS | Encounter Summary ---
Author Organization [facility] Address [address] [place]: Epic Prelude ADT [place] [address] Care Team Providers Care Mounter Saxophones Name Role Phone Non-Staff, Physician Primary Care Provider Unava ilable Encounter Details Date Type Department Care Team (Late st Contact Info) Description 11/15/2001 Outpatient Historical Brice Price MD [address] [place] [address] Social History Tobacco Use Types Packs/Day Years Used Date Smoking Tobacco: Never Assessed Comments Unknown Sex and Gender Information Value Date Recorded Sex Assigned at Not on file Legal Sex Female 7:06 AM SPIRAL TUBE WINDER Gender Identity Not on file Sexual Orientation Not on file documented as of this encounter Plan of Treatment Not on file documented as of this encounter Visit Diagnoses Not on filedocumented in this encounter Care Teams Mounter Saxophones Relationship Specialty Start Date End Date Non-Staff, Physician NO ADDRESS ON FILE PCP - General 04/15/12 documented as of this encounter
--- OUTSIDE RECORDS SUMMARY | 2025-07-05 21:12 | XMS_ITS | Encounter Summary ---
Author Organization [facility] Address [address] [place] [address] Care Team Providers Care Vehicle Service Agent Name Role Phone Non-Staff, Physician Primary Care Provider Unava ilable Encounter Details Date Type Department Care Team (Latest Contact Info) Description 11/19/2001 Outpatient Historical [facility] Luis Felipe Sanford MD [address] [place] [address] CERVICALGIA (Primary Dx); EDEMA Social History Tobacco Use Types Packs/Day Years Used Date Smoking Tobacco: Never Assessed Comments Unknown Sex and Gender Information Value Date Recorded Sex Assigned at Not on file Legal Sex Female 7:06 AM MAINTENANCE SHOP LABORER Gender Identity Not on file Sexual Orientation Not on file documented as of this encounter Plan of Treatment Not on file documented as of this encounter Visit Diagnoses Diagnosis Cervicalgia- Primary Edema documented in this encounter Care Teams Vehicle Service Agent Relationship Specialty Start Date End Date Non-Staff, Physician NO ADDRESS ON FILE PCP - General 04/15/12 documented as of this encounter
--- OUTSIDE RECORDS SUMMARY | 2025-07-05 21:12 | XMS_ITS | Encounter Summary ---
Author Organization [facility] Address [address] [place] [address] Care Team Providers Care Hot Die Picker Name Role Phone Non-Staff, Physician Primary Care Provider Unava ilable Encounter Details Date Type Department Care Team (Late st Contact Info) Description 02/22/2002 Outpatient Historical [facility] [address] [place] [id number] Social History Tobacco Use Types Packs/Day Years Used Date Smoking Tobacco: Never Assessed Comments Unknown Sex and Gender Information Value Date Recorded Sex Assigned at Not on file Legal Sex Female 7:06 AM ASSISTANT MEN'S 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
--- OUTSIDE RECORDS SUMMARY | 2025-07-05 21:12 | XMS_ITS | Encounter Summary ---
Author Organization [facility] Address [address] [place] [address] Care Team Providers Care Machine Tool Electrician Name Role Phone Non-Staff, Physician Primary Care Provider Unava ilable Encounter Details Date Type Department Care Team (Latest Contact Info) Description 08/19/2001 Outpatient Historical [facility] [address] [facility] [place] [address] Ana Smith MD NO ADDRESS ON FILE Other screening mammogram (Primary Dx) Social History Tobacco Use Types Packs/Day Years Used Date Smoking Tobacco: Never Assessed Comments Unknown Sex and Gender Information Value Date Recorded Sex Assigned at Not on file Legal Sex Female 7:06 AM OFF TRACK BETTING MANAGER Gender Identity Not on file Sexual Orientation Not on file documented as of this encounter Plan of Treatment Not on file documented as of this encounter Visit Diagnoses Diagnosis Other screening mammogram- Primary documented in this encounter Care Teams Machine Tool Electrician Relationship Specialty Start Date End Date Non-Staff, Physician NO ADDRESS ON FILE PCP - General 04/15/12 documented as of this encounter
--- OUTSIDE RECORDS SUMMARY | 2025-07-05 21:12 | XMS_ITS | Encounter Summary ---
Author Organization [facility] Address [address] [place] [address] Care Team Providers Care Drum Printer Name Role Phone Non-Staff, Physician Primary Care Provider Unava ilable Encounter Details Date Type Department Care Team (Latest Contact Info) Description 03/18/2002 Outpatient Historical [facility] [address] [place] [id number] Juancarlos Maier MD NO ADDRESS ON FILE CERVICALGIA (Primary Dx) Social History Tobacco Use Types Packs/Day Years Used Date Smoking Tobacco: Never Assessed Comments Unknown Sex and Gender Information Value Date Recorded Sex Assigned at Not on file Legal Sex Female 7:06 AM FLAP MAKER Gender Identity Not on file Sexual Orientation Not on file documented as of this encounter Plan of Treatment Not on file documented as of this encounter Visit Diagnoses Diagnosis Cervicalgia- Primary documented in this encounter Care Teams Drum Printer Relationship Specialty Start Date End Date Non-Staff, Physician NO ADDRESS ON FILE PCP - General 04/15/12 documented as of this encounter
--- OUTSIDE RECORDS SUMMARY | 2025-07-05 21:12 | XMS_ITS | Encounter Summary ---
Author Organization [facility] Address [address] Attn: Epic Prelude ADT [place] [address] Care Team Providers Care Ditching Machine Engineer Name Role Phone Non-Staff, Physician Primary [...] on file Legal Sex Female 7:[address] Gender Identity Not on file Sexual Orientation Not on file documented as of this encounter Plan of Treatment Not on file documented as of this encounter Visit Diagnoses Not on filedocumented in this encounter Care Teams Ditching Machine Engineer Relationship Specialty Start Date End Date Non-Staff, Physician NO ADDRESS ON FILE PCP - General 04/15/12 documented as of this encounter
--- OUTSIDE RECORDS SUMMARY | 2025-07-05 21:12 | XMS_ITS | Clinical Summary ---
Author Organization [facility] [employer] [facility] Address [address] [place] [address] Phone Care Team Providers Care Protection Consultant Name Role Phone Dav Mayorga Primary Care Provider [phone] Encounters Date Type Department Care Team Description 05/22/2025 Documentation Only [facility] [address] [place] [address] Debi Delgado MD 04/18/2025 Orders Only [facility] [address] [place] [address] Serum creatinine above reference range 04/17/2025 Office Communication [facility] [address] [place] [address] Debi Delgado MD 04/17/2025 Transcribe Orders [facility] [address] [place] [address] Hitesh Pal ARNP Serum creatinine [...] patient's age to complete this topic Insurance [facility] PPO ([id number]) Medicaid [place] ([id number]) Care Teams Protection Consultant Relationship Specialty Start Date End Date Dav Mayorga DO [address] [place] [id number] PCP - General Family Medicine 04/17/25
[2025-07-05] MEDS: piperacillin-tazobactam 3.375 GM in sodium chloride 0.9% (plus) 50 ML IV (21:14)
[2025-07-05 21:17] LABS: Hematocrit 31.5 % (36-47); Hemoglobin 10.40 g/dL (11.27-16.99); Mean Corpuscular HGB Conc 33.0 g/dL (30-55); Mean Corpuscular Hemoglobin 33.8 pg (27-33); Mean Corpuscular Volume 102.3 fl (85-98); Nucleated Red Blood Cells % 0 %; Platelet Count 36 10^3/cmm (157-399); Red Blood Count 3.08 10^6/uL (3.85-5.65); White Blood Count 4.25 10^3/uL (3.29-11.43)
[2025-07-05 21:23] LABS: Glucose Urine UA Negative (Normal); Nitrate Urine Negative (Negative); Specific Gravity, Urine 1.021 (1.005-1.030)
[2025-07-05 21:25] LABS: Add Urine Microscopic? YES
[2025-07-05] MEDS: norepinephrine 4 MG/250 ML BAG 30 MG IV (21:27)
[2025-07-05 21:37] LABS: Lactic Sepsis W/Reflex 2.8 mmol/L (0.5-2.2)
[2025-07-05 21:40] LABS: Troponin(5th) Baseline 33 ng/L (0-10)
--- NOTE | 2025-07-05 21:47 | ED_ITS ---
HPI - Altered Mental Status 2 General: Chief Complaint: Altered Mental Status Stated Complaint: ams Time Seen by Provider: 07/05/25 20:53 Source: EMS Mode of arrival: EMS Limitations: altered mental status History of Present Illness: 65-year-old female recently diagnosed wi th UTI per EMS had became altered around 7 PM. Talk to family states that she had not felt well all day had recently been here diagnosed UTI he states that she had felt dizzy throughout the day and 7 sat down became unresponsive family states that her blood pressure was low and they tried to check it EMS states that her blood pressures been in the 60s and 70s the whole time as well. Patient here will respond to painful stimuli open her eyes and tell me her name but is very lethargic and falls right back to sleep. No known injuries. Related Data Home Medications ?Medication ?Instructions ?Recorded ?Confirmed potassium gluconate 595 mg (99 mg) 595 mg PO TID@08,15 ,22 03/12/20 07/02/25 tablet dppfzen-vthatryxrywae-jhshqhwx 250 1 tab PO Q6H PRN Pa in 09/14/24 07/02/25 mg-250 mg-65 mg tablet (Excedrin Extra Strength) glycopyrrolate 1 mg tablet 1 mg PO TID 05/14/25 (Robinul) irbesartan 150 mg tablet 150 mg PO DAILY 07/02/2505/19 Previous Rx's ?Medication ?Instructions ?Recorded meclizine 25 mg tablet 25 mg PO DAILY PRN nausea an d 11/04/24 vomiting #30 tabs baclofen 10 mg tablet See Rx Instructions .Route 0 12/19/24 .COMPLEX #360 tabs carvedilol 6.25 mg tablet (Coreg) 6.25 mg PO Q12H #180 tabs 12/19/24 cyanocobalamin (vitamin B-12) 1,000 mcg IM .monthly #2 mL 12/19/24 1,000 mcg/mL injection solution ergocalciferol (vitamin D2) 1,250 50,000 unit PO Q7D # 12 caps 12/19/24 mcg (50,000 unit) capsule fenofibrate micronized 134 mg 134 mg PO DAILY@15 #90 c aps 12/19/24 capsule gabapentin 800 mg tablet 800 mg PO TID #360 tabs 11/27 02/17 levothyroxine 50 mcg tablet 50 mcg PO DAILY@1500 #90 t abs 12/19/24 linaclotide 145 mcg capsule 145 mcg PO BEDTIME #90 cap s 12/19/24 (Linzess) paroxetine HCl 30 mg tablet 30 mg PO DAILY #90 tabs syringe with needle 3 mL 25 gauge #5 ea 12/19/24 x 1 (BD Luer-Rae Syringe) terconazole 0.4 % vaginal cream 1 appful vaginal .at b edtime #45 06/27/25 grams cefdinir 300 mg capsule 300 mg PO BID 10 days #20 ca ps 07/02/25 ondansetron 4 mg disintegrating 4 mg PO Q8H PRN nausea and 07/02/25 tablet vomiting 4 days #14 tabs Allergies Allergy/AdvReac Type Severity Reaction Status Date / Time atorvastatin (From Lipitor) Allergy Unknown known Verified 05/24/25 18:03 ezetimibe (From Zetia) Allergy Unknown unknown Verified 05/24/25 18:03 rosuvastatin (From Crestor) Allergy Unknown unknown Verified 05/24/25 18:03 Qbxijta-JPA-YqF Reductase Allergy Unknown Unknown Verified 05/24/25 18:03 Inhibitor (Blnyarr-Lvw-Mkm Reductase Inhibitor) Sulfa (Sulfonamide Allergy Unknown Unknown Verified 05/24/25 18:03 Antibiotics) sumatriptan (From Imitrex) Allergy Unknown known Verified 05/24/25 18:03 IV contrast dye Allergy ALGY-Anaphy Uncoded 05/24/25 18:03 laxis Review of Systems 2 General: Reports: ROS unobtainable due to mental status PFSH ED 2 PFSH: Medical History Pneumonia COPD (chronic obstructive pulmonary disease) Dehydration Hyperkalemia Acute kidney injury superimposed on CKD Altered mental status Anxiety, generalized CHF (congestive heart failure), NYHA class III Constipation, slow transit 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 CAD (coronary artery disease) Vitamin B12 deficiency Essential (primary) hypertension Gastric reflux Fibromyalgia muscle pain Osteopenia of multiple sites Chronic bilateral low back pain with bilateral sciatica Vitamin D deficiency Mixed hyperlipidemia Adult onset hypothyroidism Hypotension, unspecified Neuropathic pain of both legs Surgical History History of back surgery History of cholecystectomy History of tonsillectomy History of hysterectomy Family History Other Arthritis Coronary artery disease involving [place] coronary artery of [place] heart with unstable angina pectoris Diabetes Hypertension Thyroid disease Social History Smoking and tobacco/nicotine status: current every day tobacco/nicotine user Second hand smoke exposure: Yes Alcohol intake: never Substance/Drug Use: unknown Adopted: No Caregiver/support person: Yes Lives independently: No Household members: family Housing: House Marital status: service: No Current occupational status: disabled Do you think of yourself as: Straight/Heterosexual Current gender identity: Female Physical Exam 2 Const: COMMON NORMALS: negative for patient oriented x3 GENERAL APPEARANCE: ill appearing HENMT: COMMON NORMALS: normocephalic and atraumatic HEAD & SCALP: n ormocephalic and atraumatic Eye: COMMON NORMALS: Equal, round and reactive pupils present and EOMs intact bilaterally PUPIL: Yes Equal, round and reactive pupils present Neck/C-Spine: COMMON NORMALS: full ROM and supple Chest: COMMONS NORMALS: normal inspection of the chest and normal palpation of entire chest wall Resp: COMMON NORMALS: normal respiratory effort, No retractions, No use of accessory muscles and clear to auscultation bilaterally AUSCULTATION: clear to auscultation bilaterally Cardio: COMMON NORMALS: regular rate, regular rhythm and No murmurs present (Cardio) RATE: regular rate RHYTHM: regular rhythm GI: COMMON NORMALS: Normal to inspection, nondistended, normoactive bowel sounds present, Soft to palpation, non-tender and no masses PALPATION: Yes Soft to palpation Extremity: COMMON NORMALS: normal to inspection and full ROM Neuro: COMMON NORMALS: negative for patient oriented x3 OTHER: will awake and tell me her name but very lethargic Psych: COMMON NORMALS: cooperative Skin: COMMON NORMALS: no rashes or lesions noted and no wounds GENERAL SKIN EXAM: no rashes or lesions noted Urinary Catheter Management: Zimmerman: Cath Placed During This Visit: yes Urinary Catheter Date of Insertion: 07/05/25 Urinary Catheter Time of Insertion: 21:03 Procedures Central Line Placement Right IJ: Time Out Performed: Yes Patient Placed on Monitor/Pulse Ox: Yes Prep: mask, gown and gloves Central Line Prep: Povidone-Iodine 1% Local Anesthetic: lidocaine 1% Amount of anesthesia used (mL): 3 Ultrasound Used for Placement: Yes Central Line Lumen Inserted: triple Post Procedure: sutured in place, good blood return, all ports aspirated, flushed, capped and sterile dressing applied Post Procedure X-Ray: tip of catheter in good position and no pneumothorax seen Patient Tolerated Procedure: well Complications: none Course 2 Reevaluation(s): Reevaluation #1: Did discuss EKG with feed research technician he states that he does not believe it is a STEMI likely from her hypotension Time: 21:48 Reevaluation #2: Patient arrived she was very hypotensive did give her 2 L bolus and started on antibiotics her pressure continued to be in the 50s did place a central line started on Levophed and was able to get her blood pressure high enough to be able to go to CT. CT head showed no acute findings. I believe the patient's altered mental status when she arrived was likely due to sepsis and her hypotension her blood pressure here is improved and she is continue to be very somnolent. She will respond to painful stimuli but only makes slight movements and does not respond otherwise. I spoke to my neurologist Dr. Mei who at this time recommended TNKase for possible brainstem stroke. I spoke to family about this and they do give consent she has no contraindications at this time. Also concern as she was hypotensive since 7 that she could have some findings from of her neurostatus from her hypotension. CTA is still pending of her head Time: 23:15 Vital Signs: Vital signs: Vital Signs Temperature 95.2 F L 07/05/25 20:56 Pulse Rate 59 L 07/05/25 23:57 Respiratory Rate 10 L 07/05/25 23:57 Blood Pressure 112/67 07/05/25 23:57 Pulse Oximetry 100 07/05/25 23:47 Oxygen Delivery Me thod Nasal Cannula 07/05/25 22:02 Oxygen Flow Rate 2 07/05/25 22:02 MDM - Altered Mental Status Medical Decision Making Patient presents here with altered mental status along with profound hypotension. Did give patient sepsis bolus her blood pressure did not improve did place a central line and started her on Levophed. Blood pressure had improved she then went to CT CT showed no acute findings CTA shows no acute clot. Did have elevated lactate her lactate improved here. Patient continued to be altered and not responsive. I did speak to neurologist Dr. Mei concern of a possible brainstem stroke. I still believe that she likely is having her altered male status from her hypotension and sepsis but decision was made to give her TNKase with me and Hamida and discussing with family. Patient's blood pressure is currently 130/75 she is given IV antibiotics spoke to hospitalist will admit to ICU at this time Medical Records I reviewed the patient's medical records. Lab Data I reviewed the patient's lab results. 07/05/25 21:00 07/05/25 21:00 Radiology Impressions Chest X-Ray 07/05/25 20:57 IMPRESSION: No acute cardiopulmonary process. Head CT 07/05/25 20:57 IMPRESSION: No large territorial infarct or intracranial bleed. ASSESSMENT: ASPECTS ([place] Stroke Program Early CT Score) is 10. ADDENDUM: 07/05/256 THIS REPORT CONTAINS FINDINGS THAT MAY BE CRITICAL TO PATIENT CARE. The findings were verbally communicated via telephone conference with DIMAS HINES at 10:35 PM CDT on 07/05/2025. The findings were acknowledged and understood. Chest/Abdomen/Pelvis CT 07/05/25 21:50 IMPRESSION: 1. No pulmonary embolism. 2. No acute infiltrates. IMPRESSION: No acute intra-abdominal process. COMMENTS: Consistent with the [employer]'s Incidental Findings Committee white paper (J Am Jessie Radiol 2018): Any incidental renal lesion less than 1 cm or classified as too small to characterize, or any incidental cystic renal lesion characterized as simple-appearing, is likely benign. No follow-up imaging is recommended for these lesions per consensus recommendations based on imaging criteria. Head/Neck CTA 07/05/25 22:17 IMPRESSION: No evidence of intracranial large vessel occlusion or aneurysm. IMPRESSION: There is no evidence of significant stenosis or occlusion in the carotid or vertebral arteries in the neck. REFERENCES: NASCET CRITERIA. The degree of stenosis in the cervical segment of the internal carotid artery is based on NASCET criteria. Normal is no stenosis. Mild is less than 50% stenosis. Moderate is 50-69% stenosis. Severe is 70% to 99% stenosis. Total occlusion is no detectable patent lumen. ADDENDUM: 07/05/25 [id number] Addendum: THIS REPORT CONTAINS FINDINGS THAT MAY BE CRITICAL TO PATIENT CARE. The findings were verbally communicated via telephone conference with DIMAS HINES at 11:32 PM CDT on 07/05/2025. The findings were acknowledged and understood. Laboratory Results WBC 4.25 10^3/uL (3.29-11.43) 07/05/25 21:00 RBC 3.08 10^6/uL (3.85-5.65) L 07/05/25 21:00 Hgb 10.40 g/dL (11.27-16.99) L 07/05/25 21: Hct 31.5 % (36-47) L 07/05/25 21: MCV 102.3 fl (85-98) H 07/05/25 21:00 MCH 33.8 pg (27-33) H 07/05/25 21: MCHC 33.0 g/dL (30-55) 07/05/25 21: RDW 14.8 % (12.1-15.1) 07/05/25 21:00 Plt Count 36 10^3/cmm (157-399) L 07/05/25 21:00 MPV Not Reportable 07/05/25 21: Neut % (Auto) 56.8 % 07/05/25 21:00 Lymph % (Auto) 28.9 % 07/05/25 21:00 [place] % (Auto) 10.1 % 07/05/25 21:00 Eos % (Auto) 2.8 % 07/05/25 21:00 Baso % (Auto) 0.7 % 07/05/25 21:00 Neut # (Auto) 2.41 10^3/uL (1.8-7.7) 07/05/25 21:00 Lymph # (Auto) 1.2 10^3/uL (0.8-4.8) 07/05/25 21:00 [place] # (Auto) 0.4 10^3/uL (0.2-0.9) 07/05/25 21:00 Eos # (Auto) 0.1 10^3/uL (0.0-0.8) 07/05/25 21:00 Baso # (Auto) 0.0 10^3/uL (0.0-0.1) 07/05/25 21:00 Nucleated RBC % (auto) 0 % 07/05/25 21:00 Nucleated RBCs # 0.0 /100WBC 07/05/25 21:00 PT 13.60 SECONDS (12.1-14.9) 07/05/25 21:00 INR 0.97 (0.8-1.2) 07/05/25 21:00 Specimen Type Arterial 07/05/25 22:47 Sample Site Brachial, right 07/05/25 22:47 ABG pH 7.19 (7.35-7.45) L 07/05/25 22:47 ABG pCO2 56.2 mmHg (35-45) H 07/05/25 22:47 ABG pO2 64.1 mmHg (80.0-100.0) L 07/05/25 22:47 ABG PO2/FiO2 Ratio 228 07/05/25 22:47 ABG HCO3 21.5 mmol/L (22-26) L 07/05/25 22:47 ABG O2 Saturation 90.2 07/05/25 22:47 ABG Base Excess -6.9 mmol/L (-2.0-2.0) L 07/05/25 22:47 Yuriy Test Pos 07/05/25 22:47 A-a O2 Gradient 8.8 mmHg (5-10) 07/05/25 22:47 Hematocrit 33.2 % (37-47) L 07/05/25 22:47 Hgb O2 Saturation 81.5 % (95-100) L 07/05/25 22:47 Carboxyhemoglobin 8.5 %THgb (0.4-20.1) 07/05/25 22:47 Methemoglobin 1.2 % (0.4-1.5) 07/05/25 22:47 Total Hemoglobin 10.8 g/dL (12-16) L 07/05/25 22:47 Sodium 134.0 mmol/L (131-143) 07/05/25 22:47 Potassium 3.2 mmol/L (3.5-5.0) L 07/05/25 22:47 Glucose 102.0 mg/dL (70-115) 07/05/25 22:47 Ionized Calcium 1.1 mmol/L (1.1-1.4) 07/05/25 22:47 O2 Delivery Device Nc 07/05/25 22:47 O2 Liters/Min 2.0 % 07/05/25 22:47 FiO2 28.0 % 07/05/25 22:47 School Attendance Secretary ID [email or web address] 07/05/25 22:47 Sodium 137 mmol/L (136-145) 07/05/25 21:00 Potassium 3.8 mmol/L (3.5-5.1) 07/05/25 21:00 Chloride 101 mmol/L (98-107) 07/05/25 21:00 Carbon Dioxide 24 mmol/L (22-29) 07/05/25 21:00 Anion Gap 15.8 (5-19) 07/05/25 21:00 BUN 45 mg/dL (8-23) H 07/05/25 21:00 Creatinine 1.4 mg/dL (0.5-0.9) H 07/05/25 21:00 GFR Calculation 37.9 mL/min (90-130) L 07/05/25 21:00 Glucose 99 mg/dL (65-115) 07/05/25 21:00 Calculated Osmolality 296 mOsm/kg (285-295) H 07/05/25 21:00 Lactic Acid 2.8 mmol/L (0.5-2.2) H 07/05/25 21:00 Lactic Acid (Sepsis) 0.4 mmol/L (0.5-2.2) L 07/05/25 23:02 Calcium 8.4 mg/dL (8.5-10.5) L 07/05/25 21:00 Magnesium 1.9 mg/dL (1.7-2.3) 07/05/25 21:00 Total Bilirubin 0.3 mg/dL (0.15-1.2) 07/05/25 21:00 AST 17 U/L (0-32) 07/05/25 21:00 ALT 8 U/L (0-33) 07/05/25 21:00 Alkaline Phosphatase 35 U/L (35-105) 07/05/25 21:00 Troponin T Baseline 33 ng/L (0-10) H 07/05/25 21:00 Troponin T 120 Minute 29.36 ng/L (0-10) H 07/05/25 23:02 Delta Troponin T -3.64 ABS# (0-10) L 07/05/25 23:02 Total Protein 4.6 g/dL (6.6-8.7) L 07/05/25 21:00 Albumin 3.1 g/dL (3.5-5.2) L 07/05/25 21:00 Globulin 1.5 g/dL (1.3-4.6) 07/05/25 21:00 TSH 1.20 uIU/mL (0.27-4.20) 07/05/25 21:00 Urine Color [place] (Yellow) A 07/05/25 21:17 Urine Appearance Clear (CLEAR) 07/05/25 21: Urine pH 5.5 (5-7) 07/05/25 21: Ur Specific [place] 1.021 (1.005-1.030) 07/05/25 21:17 Urine Protein 2+ (Negative) A 07/05/25 21:17 Urine Glucose (UA) Negative (Normal) 07/05/25 21:17 Urine Ketones Negative (Negative) 07/05/25 21:17 Urine Blood Trace (Negative) A 07/05/25 21:17 Urine Nitrate Negative (Negative) 07/05/25 21:17 Urine Bilirubin Negative (Negative) 07/05/25 21: Urine Urobilinogen 1.0 mg/dL (Negative) 07/05/25 21:17 Ur Leukocyte Esterase Negative (Negative) 07/05/25 21:17 Urine RBC 6-10 /hpf (0-2) 07/05/25 21:17 Urine WBC 0-5 /hpf (0-5) 07/05/25 21:17 Ur Squamous Epith Cells 0-5 /hpf (0-5) 07/05/25 21:17 Amorphous Sediment Not Reportable 07/05/25 21:17 Urine Bacteria None seen /hpf (NONE) 07/05/25 21:17 Hyaline Casts 5.77 /lpf 07/05/25 21:17 All radiology interpretation(s) finalized by discharge Critical Care Time 2 Critical Care Time: Critical Care Time: Yes Total Critical Care Time: 60 Attestation: The high probability of a clinically significant, sudden or life threatening deterioration of the patient's neuro system(s) required my full and direct attention, intervention and personal management. The critical care time is as shown. This time is in addition to time spent performing any reported procedures but includes the following: [x] Data and vital sign review and interpretation [x] Patient assessment, examination and intervention [x] Documentation [x] Medication orders and management Discharge Plan Discharge Patient Disposition: Admitted As Inpatient Clinical Impression: Altered mental status, Septic shock, Hypotension Condition: Stable Coding Level of Care Code ED Seed Sorter for Antonia Medina NIH stroke score NIHSS Level Of Consciousness - 1a: 2 Level Of Consciousness Questions - 1b: One Correct Level Of Consciousness Commands - 1c: Neither Correct Best Gaze - 2: Normal Visual More[place] - 3: No Visual Loss Facial Palsy - 4: Normal Motor Arm Right - 5: No Movement Motor Arm Left - 5: No Movement Motor Leg Right - 6: No Movement Motor Leg Left - 6: No Movement Limb Ataxia - 7: Absent Sensory - 8: Normal Best Language - 9: Mute; Global Aphasia Dysarthia - 10: Severe Dysarthia Extinction And Inattention - 11: 0 Score Total Score: 26
[2025-07-05 21:49] LABS: Alanine Aminotransferase 8 U/L (0-33); Albumin Level 3.1 g/dL (3.5-5.2); Alkaline Phosphatase 35 U/L (35-105); Anion Gap 15.8 (5-19); Aspartate Amino Transferase 17 U/L (0-32); Blood Urea Nitrogen 45 mg/dL (8-23); Calcium 8.4 mg/dL (8.5-10.5); Carbon Dioxide 24 mmol/L (22-29); Chloride 101 mmol/L (98-107); Creatinine Clr Calc Pharmacy 26.1624; Globulin 1.5 g/dL (1.3-4.6); Glucose 99 mg/dL (65-115); Magnesium 1.9 mg/dL (1.7-2.3); Osmolality Calculated 296 mOsm/kg (285-295); Potassium 3.8 mmol/L (3.5-5.1); Sodium 137 mmol/L (136-145); Thyroid Stimulating Hormone 1.20 uIU/mL (0.27-4.20); Total Protein 4.6 g/dL (6.6-8.7)
[2025-07-05 21:50] LABS: Slide Review Slide Review Perform
--- NOTE | 2025-07-05 21:50 | CTR_ITS ---
PROCEDURE INFORMATION: Exam: CTA Chest With Contrast Exam date and time: 07/05/2025 10:05 PM Age: 65 years old Clinical indication: Abdominal tenderness; Shortness of breath; Additional info: SOB, verified with Dr jordan TECHNIQUE: Imaging protocol: Computed tomographic angiography of the chest with contrast. Exam focused on the arteries. 3D rendering (Not supervised by radiologist): MIP and/or 3D reconstructed images were created by the technologist. Radiation optimization: All CT scans at this facility use at least one of these dose optimization techniques: automated exposure control; mA and/or kV adjustment per patient size (includes targeted exams where dose is matched to clinical indication); or iterative reconstruction. Contrast material: OMNI 350; Contrast volume: 75 ml; Contrast route: INTRAVENOUS (IV); COMPARISON: CR (CHEST, ) 07/05/2025 9:44 PM RADIATION DOSE METRICS: Total DLP (mGy-cm): 1233 FINDINGS: Tubes, catheters and devices: Right internal jugular central line is seen. Pulmonary arteries: Normal. No pulmonary emboli. Aorta: Unremarkable. No aortic aneurysm. No aortic dissection. Lungs: Mild centrilobular emphysematous changes are present. Atelectatic changes in the dependent portions of both lower lobes. There is no evidence of focal pulmonary consolidation. Pleural spaces: Trace left pleural effusion. Heart: Unremarkable. No cardiomegaly. No pericardial effusion. Coronary arteries: There is moderate atherosclerotic calcification of the coronary arteries. Lymph nodes: Unremarkable. No enlarged lymph nodes. Bones/joints: Post posterior instrumentation of the thoracolumbar spine. Curvature of the lower thoracic spine convex to the right. Soft tissues: Unremarkable. COMMENTS: The presence of pulmonary emphysema on CT is an independent risk factor for lung cancer. In the absence of a history or active diagnosis of lung cancer, it is recommended that this patient with emphysema be evaluated for enrollment in a low dose CT lung cancer screening program. PROCEDURE INFORMATION: Exam: CT Abdomen And Pelvis With Contrast Exam date and time: 07/05/2025 10:05 PM Age: 65 years old Clinical indication: Abdominal tenderness; Shortness of breath; Additional info: SOB, verified with Dr jordan TECHNIQUE: Imaging protocol: Computed tomography of the abdomen and pelvis with contrast. Radiation optimization: All CT scans at this facility use at least one of these dose optimization techniques: automated exposure control; mA and/or kV adjustment per patient size (includes targeted exams where dose is matched to clinical indication); or iterative reconstruction. Contrast material: OMNI 350; Contrast volume: 75 ml; Contrast route: INTRAVENOUS (IV); COMPARISON: CT abdomen pelvis con [id number] 07/02/2025 4:22 PM RADIATION DOSE METRICS: Total DLP (mGy-cm): 707.71 FINDINGS: Tubes, catheters and devices: A balloon bladder catheter is present. Liver: Normal. No mass. Gallbladder and biliary ducts: There has been a cholecystectomy. There is dilatation of the CBD measuring up to 1 cm, likely representing reservoir effect. Pancreas: Normal. No ductal dilation. Spleen: Normal. No splenomegaly. Adrenal glands: Normal. No mass. Kidneys and ureters: Bilateral simple renal cysts measuring up to 1 cm in the upper pole of the right kidney. There is no evidence of hydronephrosis. Stomach and bowel: Unremarkable. No obstruction. No mucosal thickening. Appendix: No evidence of appendicitis. Intraperitoneal space: Unremarkable. No free air. No significant fluid collection. Vasculature: The vasculature demonstrates diffuse moderate atherosclerotic calcification. Lymph nodes: Unremarkable. No enlarged lymph nodes. Urinary bladder: Unremarkable as visualized. Reproductive: Unremarkable as visualized. Bones/joints: Redemonstrated the scoliotic curvature of the thoracolumbar spine with posterior instrumentation hardware. Soft tissues: Unremarkable. CT/CT angio chest w abd pel w con IMPRESSION: 1. No pulmonary embolism. 2. No acute infiltrates. IMPRESSION: No acute intra-abdominal process. COMMENTS: Consistent with the [employer]'s Incidental Findings Committee white paper (J Am Jessie Radiol 2018): Any incidental renal lesion less than 1 cm or classified as too small to characterize, or any incidental cystic renal lesion characterized as simple-appearing, is likely benign. No follow-up imaging is recommended for these lesions per consensus recommendations based on imaging criteria.
--- NOTE | 2025-07-05 22:17 | CTR_ITS ---
PROCEDURE INFORMATION: Exam: CTA Head With Contrast, Arteriography Exam date and time: 07/05/2025 10:26 PM Age: 65 years old Clinical indication: Stroke-like symptoms; Altered mental status/memory loss; Additional info: CVA TECHNIQUE: Imaging protocol: Computed tomographic angiography of the head with contrast. Exam focused on the arteries. 3D rendering (Not supervised by radiologist): MIP and/or 3D reconstructed images were created by the technologist. Radiation optimization: All CT scans at this facility use at least one of these dose optimization techniques: automated exposure control; mA and/or kV adjustment per patient size (includes targeted exams where dose is matched to clinical indication); or iterative reconstruction. Contrast material: OMNI 350; Contrast volume: 75 ml; Contrast route: INTRAVENOUS (IV); COMPARISON: CT head wo con* [id number] 07/05/2025 10:03 PM RADIATION DOSE METRICS: Total DLP (mGy-cm): 367.02 FINDINGS: ANTERIOR CIRCULATION: Right internal carotid artery: Intracranial segment is patent with no significant stenosis. No aneurysm. Right middle cerebral artery: No occlusion or significant stenosis. No aneurysm. Right anterior cerebral artery: No occlusion or significant stenosis. No aneurysm. Left internal carotid artery: Intracranial segment is patent with no significant stenosis. No aneurysm. Left middle cerebral artery: No occlusion or significant stenosis. No aneurysm. Left anterior cerebral artery: No occlusion or significant stenosis. No aneurysm. POSTERIOR CIRCULATION: Right vertebral artery: Right vertebral artery is dominant. Left vertebral artery: There is a fenestrated left V4 vertebral artery segment. 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 Basilar artery: No occlusion or significant stenosis. No aneurysm. Right posterior cerebral artery: No occlusion or significant stenosis. No aneurysm. Left posterior cerebral artery: No occlusion or significant stenosis. No aneurysm. Brain: No definite mass, mass effect, or midline shift. Cerebral ventricles: No ventriculomegaly. Bones/joints: Unremarkable. No acute fracture. Soft tissues: Unremarkable. PROCEDURE INFORMATION: Exam: CTA Neck With Contrast Exam date and time: 07/05/2025 10:26 PM Age: 65 years old Clinical indication: Stroke-like symptoms; Altered mental status/memory loss; Additional info: CVA TECHNIQUE: Imaging protocol: Computed tomographic angiography of the neck with contrast. Exam focused on the cervical segments of the vasculature. 3D rendering (Not supervised by radiologist): MIP and/or 3D reconstructed images were created by the technologist. Radiation optimization: All CT scans at this facility use at least one of these dose optimization techniques: automated exposure control; mA and/or kV adjustment per patient size (includes targeted exams where dose is matched to clinical indication); or iterative reconstruction. Contrast material: OMNI 350; Contrast volume: 75 ml; Contrast route: INTRAVENOUS (IV); COMPARISON: CT angio chest w abd pel w con 07/05/2025 10:05 PM RADIATION DOSE METRICS: Total DLP (mGy-cm): 367.02 FINDINGS: Right common carotid artery: There is some minimal atherosclerotic calcification distal right common carotid artery without stenosis. Right internal carotid artery: There is some minimal atherosclerotic calcification proximal right internal carotid artery without stenosis. Right external carotid artery: No occlusion or stenosis of the origin. Left common carotid artery: No stenosis. No dissection or occlusion. Left internal carotid artery: No stenosis of the extracranial segment. No dissection or occlusion. Left external carotid artery: No occlusion or stenosis of the origin. Right vertebral artery: Right vertebral artery is dominant and patent throughout its length in the neck without evidence of stenosis or occlusion. Left vertebral artery: Left vertebral artery is congenitally small but patent throughout its length in the neck. Soft tissues: Normal. No significant soft tissue swelling. Bones/joints: No acute fracture. CT/CT angio headneck* [id number] IMPRESSION: No evidence of intracranial large vessel occlusion or aneurysm. IMPRESSION: There is no evidence of significant stenosis or occlusion in the carotid or vertebral arteries in the neck. REFERENCES: NASCET CRITERIA. The degree of stenosis in the cervical segment of the internal carotid artery is based on NASCET criteria. Normal is no stenosis. Mild is less than 50% stenosis. Moderate is 50-69% stenosis. Severe is 70% to 99% stenosis. Total occlusion is no detectable patent lumen.
[2025-07-05 22:26] LABS: INR 0.97 (0.8-1.2); Prothrombin Time 13.60 SECONDS (12.1-14.9)
[2025-07-05] MEDS: iohexol 350 mg/mL 500 mL Btl (per mL) IV (22:26)
[2025-07-05] MEDS: methylPREDNISolone sod succ 125 mg/2 mL INJ 60 MG IVP (22:44)
[2025-07-05] MEDS: diphenhydrAMINE 50 mg/mL SDV 1mL IVP (22:44)
[2025-07-05 22:57] LABS: Reflex Lactate Order REFLEX LACTIC ORDERD
[2025-07-05 22:58] LABS: ABG PCO2 56.2 mmHg (35-45); ABG PH Result 7.19 (7.35-7.45); Alveolar-Arterial Oxygen Gradi 8.8 mmHg (5-10); Arterial Blood Gas Hematocrit 33.2 % (37-47); Blood Gas Allen Test Pos; Blood Gas LPM 2.0 %; Blood Gas Operator Identificat gerca; Blood Gas Sample Site Brachial, right; Blood Gas Sample Type Arterial; Carboxyhemoglobin 8.5 %THgb (0.4-20.1); Glucose Level-ABG 102.0 mg/dL (70-115); HCO3 ABG 21.5 mmol/L (22-26); Ionized Calcium Level - ABG 1.1 mmol/L (1.1-1.4); Methemoglobin 1.2 % (0.4-1.5); Oxygen Saturation ABG 90.2; PO2 ABG 64.1 mmHg (80.0-100.0); PO2 FiO2 Ratio Arterial Blood 228; Potassium Level - ABG 3.2 mmol/L (3.5-5.0); Sodium Level - ABG 134.0 mmol/L (131-143)
--- NOTE | 2025-07-05 23:09 | ECG_ITS ---
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: : 1960 Requested By: Yoselin Skaggs Order Number: [id number] Reading MD: GIULIANA MCCORD Measurements Intervals [place] Rate: 61 P: 89 WV: 163 QRS: 57 QRSD: 78 T: 80 QT: 473 QTc: 479 Interpretive Statements SINUS RHYTHM LOW QRS VOLTAGE IN PRECORDIAL LEADS [QRS DEFLECTION < 1.0 mV IN CHEST LEADS] PROLONGED QT INTERVAL Compared to ECG 07/05/2025 21:07:15 Low QRS voltage now present Prolonged QT interval now present ST (T wave) deviation no longer present Electronically Signed On 07-07-2025 20:22:23 CDT by GIULIANA MCCORD [email or web address]
[2025-07-05 23:24] LABS: Troponin 5 2HR 29.36 ng/L (0-10)
[2025-07-05] MEDS: tenecteplase 50mg Kit (STROKE) 13 MG IVP (23:25)
[2025-07-05 23:26] LABS: Lactic Acid level (Lactate) 0.4 mmol/L (0.5-2.2); Troponin 5 2HR Delta -3.64 ABS# (0-10)
--- NOTE | 2025-07-05 23:40 | PC.NURSE ---
THIS RN UNABLE TO DO A STROKE ASSESSMENT DUE TO GCS OF 3.
[2025-07-06] VITALS (117 sets, daily range): BP systolic 76–203; BP diastolic 46–151; PULSE 54–105; RESP 7–16; TEMP 32.7–37.5; O2SAT 89–100; BMI 18.4
--- NOTE | 2025-07-06 00:05 | PC.NURSE ---
THIS RN CANNOT ASSESS PAIN DUE TO GCS OF 3.
--- NOTE | 2025-07-06 00:16 | P.HP_ITS ---
Providers/Chief Complaint 2 Admitting Physician: Adrianna Huddleston MD------ patient seen after 12 midnight Primary Care Provider: TONI Fritz Chief Complaint: ams History of Present Illness Viola Ennis is a 65 year old female who looks much older than the stated age, lives alone at home with stage II ulcer in the sacrum area, debilitated cannot see had the patient could ambulate and do activities of daily living. Patient came to the emergency room via the ambulance because the family related that patient had complained that she had not felt well all day and when the family finally saw her it was at 7 PM on the day of presentation in the ED she was already with a profound change in mental status unresponsive. It was also be noted that the patient was in the emergency room 2 days ago with UTI and was treated and sent home. Emergency room attending had consulted neurology Dr. Mei who advised thrombolytics.. Patient is status post thrombolytics and was sent to ICU for further care. I have seen and evaluated patient here in ICU 3 patient is still obtunded but breathing very hard and having some apneic episode. Pupils we are dilated to 5 mm pupil gauge bilaterally and they do react to light. At this time I have called for airway intubation. Review of the chart from the emergency room it was noted that the pH from blood gas was 7.1 while in the ED. Patient will be rescanned with a CT without contrast after being intubated. Patient also had a CT done in the ED upon her arrival in the emergency room at 9 PM. And this was prior to the thrombolytics. MRI of the brain to follow Patient original blood pressure on arrival to the emergency room was 2 L of IV fluid normal saline given serial blood pressure was soft Levophed was initiated after a central line was placed. Now blood pressure is elevated now to the 170s. Levophed pulsed at this time. Review of Systems 2 Narrative: Patient still obtunded but breathing heavily at this time upon arrival to the ICU, patient is being intubated Medications/Allergies Home Medications ?Medication ?Instructions ?Recorded ?Confirmed ?Last Taken ?Type potassium gluconate 595 mg (99 mg) 595 mg PO TID@08,15 ,22 03/12/07/02/25 07/02/25 History tablet zwedjqz-qtntysomxayos-mjzdpzuj 250 1 tab PO Q6H PRN Pa in 09/14/24 07/02/25 05/14/25 History mg-250 mg-65 mg tablet (Excedrin Extra Strength) meclizine 25 mg tablet 25 mg PO DAILY PRN nausea an d 11/04/24 07/02/25 Unknown Rx vomiting #30 tabs baclofen 10 mg tablet See Rx Instructions .Route 0 12/19/24 07/02/25 07/02/25 Rx .COMPLEX #360 tabs carvedilol 6.25 mg tablet (Coreg) 6.25 mg PO Q12H #180 tabs 12/19/24 07/02/25 07/02/25 Rx cyanocobalamin (vitamin B-12) 1,000 mcg IM .monthly #2 mL 12/19/24 07/02/25 04/23/25 Rx 1,000 mcg/mL injection solution ergocalciferol (vitamin D2) 1,250 50,000 unit PO Q7D # 12 caps 12/19/24 07/02/25 07/02/25 Rx mcg (50,000 unit) capsule fenofibrate micronized 134 mg 134 mg PO DAILY@15 #90 c aps 12/19/24 07/02/25 07/01/25 Rx capsule gabapentin 800 mg tablet 800 mg PO TID #360 tabs 11/2707/02/25 07/02/25 Rx levothyroxine 50 mcg tablet 50 mcg PO DAILY@1500 #90 t abs 12/19/24 07/02/25 07/01/25 Rx linaclotide 145 mcg capsule 145 mcg PO BEDTIME #90 cap s 12/19/24 07/02/25 07/01/25 Rx (Linzess) paroxetine HCl 30 mg tablet 30 mg PO DAILY #90 tabs 07/02/25 07/02/25 Rx syringe with needle 3 mL 25 gauge #5 ea 12/19/2407/02 Unknown Rx x 1 (BD Luer-Rae Syringe) glycopyrrolate 1 mg tablet 1 mg PO TID 05/14/2507/02/25 History (Nora) terconazole 0.4 % vaginal cream 1 appful vaginal .at b edtime #45 06/27/25 07/02/25 07/01/25 Rx grams cefdinir 300 mg capsule 300 mg PO BID 10 days #20 ca ps 07/02/25 Unknown Rx irbesartan 150 mg tablet 150 mg PO DAILY 07/02/2505/1907/02/25 History ondansetron 4 mg disintegrating 4 mg PO Q8H PRN nausea and 07/02/25 Unknown Rx tablet vomiting 4 days #14 tabs Allergies Allergy/AdvReac Type Severity Reaction Status Date / Time atorvastatin (From Lipitor) Allergy Unknown known Verified 05/24/25 18:03 ezetimibe (From Zetia) Allergy Unknown unknown Verified 05/24/25 18:03 rosuvastatin (From Crestor) Allergy Unknown unknown Verified 05/24/25 18:03 Kuqsexw-SZO-HvK Reductase Allergy Unknown Unknown Verified 05/24/25 18:03 Inhibitor (Vplfibd-Fxm-Vwb Reductase Inhibitor) Sulfa (Sulfonamide Allergy Unknown Unknown Verified 05/24/25 18:03 Antibiotics) sumatriptan (From Imitrex) Allergy Unknown known Verified 05/24/25 18:03 IV contrast dye Allergy ALGY-Anaphy Uncoded 05/24/25 18:03 laxis PFSH Acute 2 PFSH: Medical History Pneumonia COPD (chronic obstructive pulmonary disease) Dehydration Hyperkalemia Acute kidney injury superimposed on CKD Altered mental status Anxiety, generalized CHF (congestive heart failure), NYHA class III Constipation, slow transit 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 CAD (coronary artery disease) Vitamin B12 deficiency Essential (primary) hypertension Gastric reflux Fibromyalgia muscle pain Osteopenia of multiple sites Chronic bilateral low back pain with bilateral sciatica Vitamin D deficiency Mixed hyperlipidemia Adult onset hypothyroidism Hypotension, unspecified Neuropathic pain of both legs Surgical History History of back surgery History of cholecystectomy History of tonsillectomy History of hysterectomy Family History Other Arthritis Coronary artery disease involving [place] coronary artery of [place] heart with unstable angina pectoris Diabetes Hypertension Thyroid disease Social History Smoking and tobacco/nicotine status: current every day tobacco/nicotine user Second hand smoke exposure: Yes Alcohol intake: never Substance/Drug Use: unknown Adopted: No Caregiver/support person: Yes Lives independently: No Household members: family Housing: House Marital status: service: No Current occupational status: disabled Do you think of yourself as: Straight/Heterosexual Current gender identity: Female Vitals/I&O/Wt Last Vital Signs Temp 95.2 F L 07/05/25 20:56 Pulse 59 L 07/06/25 00:12 Resp 9 L 07/06/25 00:12 BP 133/75 07/06/25 00:12 Pulse Ox 100 07/06/25 00:00 O2 Del Method Nasal Cannula 07/05/25 22:02 O2 Flow Rate 2 07/05/25 22:02 07/05/25 07/05/25 07/06/25 14:59 22:59 06:59 Intake Total 649.4 / 649.4 1312.875 / 1962.275 Balance 649.4 / 649.4 1312.875 / 1962.275 Weight last 48 hrs Weight 50.802 kg Weight 40.823 kg Physical Exam 2 Narrative: Patient slightly moving around bed with eyes closed breathing heavily now got apneic patient is now being intubated. Bilateral pleural heels upon my evaluation of the patient was at 5 mm pulpil gauge HEENT normocephalic/atraumatic pupils bilaterally at 5 mm dilated react sluggishly to light. Neck neck is supple cardiovascular heart rate 60 regular in the 60s left IJ in place propofol for tube tolerance. Lungs are clear abdomen soft nontender nondistended unremarkable extremities intact no edema has good pulses but very cool to touch neurology nonfocal extremities are not rigid patient does not follow commands patient with change in mental status from baseline patient had been status post thrombolytics in the ED. Urinary Catheter Management: Zimmerman: Cath Placed During This Visit: yes Urinary Catheter Date of Insertion: 07/05/25 Urinary Catheter Time of Insertion: 21:03 Data 07/05/25 21:00 07/05/25 21:00 Micro: Microbiology 07/05/25 21:08 Blood Culture - Preliminary Blood SPECIMEN COLLECTED 07/05/25 21:00 Blood Culture - Preliminary Blood SPECIMEN COLLECTED A&P Assessment and plan 1. Obtundation: 2. Hypotension: 3. Septic shock: 4. Altered mental status: 5. Recent urinary tract infection: 6. Thrombocytopenia: Plan: #1 Obtundation secondary to change in mental status from baseline cannot rule out CVA versus sepsis - Patient not following commands dilated pupils with apneic episodes - Admit to ICU - Status post airway intubation for patient cannot protect airways and also patient is apneic - Patient status post thrombolytics will follow post thrombolytics protocol - Propofol for tube tolerance - Gentle hydration #2 Hypotension--- resolved - Keep Levophed only on standby - Continue with gentle hydration patient is still very dry #3 Prerenal azotemia secondary to dehydration - Continue gentle hydration with D5 normal saline at a gentle rate of 75 mL/h - Patient had been status post 2 L normal saline IV bolus in the ED - Follow electrolytes and optimize accordingly #4 Change in mental status Differentials multifactorial--- neurological versus /both metabolic significant for sepsis with urinary source - Pupils are blown at 5 mm pupil gauge--- rescanning the head with a CT scan at the moment - Respiratory failure with apnea significant for central issues--Will intubate - Status post thrombolytics monitor carefully for bleed - Patient with significant thrombocytopenia at 36, monitor #5 Recent UTI with presentation of hypotension -Status post panculture from blood and urine -Gentle hydration -Empiric antibiotics with vancomycin and Zosyn once out of the [place] this will be reassessed PDMP PDMP Reviewed: Not Reviewed Attestations 2 Medical Necessity Statement*: Patient presented obtunded change in mental status does not follow command and status post tPA will need at least 2 midnights for optimization of care patient is inpatient Coding Level of Care Code 08635 Diagnoses Obtundation R40.1 Hypotension I95.9 Septic shock A41.9; R65.21 Altered mental status R41.82 Recent urinary tract infection Z87.440 Thrombocytopenia D69.6 Time Spent (min) 70
[2025-07-06] MEDS: labetalol 5 mg/mL SDV 20mL 10 MG IVP (01:31)
[2025-07-06] MEDS: etomidate 2 mg/mL INJ SDV 10 mL 20 MG IVP (01:31)
[2025-07-06] MEDS: succinylcholine 20 mg/mL SDV 10mL 100 MG IVP (01:32)
--- NOTE | 2025-07-06 01:35 | XRR_ITS ---
PROCEDURE INFORMATION: Exam: XR Chest Exam date and time: 07/06/2025 1:41 AM Age: 65 years old Clinical indication: Device placement; Ett placement (vent status); Prior surgery; Surgery date: 6+ months; Surgery type: T spine TECHNIQUE: Imaging protocol: Radiologic exam of the chest. Views: 1 view. COMPARISON: CT angio chest w abd pel w con 07/05/2025 10:05 PM FINDINGS: Tubes, catheters and devices: The endotracheal tube terminates in the midthoracic trachea. A right internal jugular approach central venous catheter is present. The tip terminates in the SVC. Partially imaged posterior instrumented spinal fusion of the thoracolumbar spine. No acute complication. The enteric tube takes the expected course of the esophagus terminating below the diaphragm. The tip is not visualized. External defibrillator pads superimpose the chest. Lungs: No acute pulmonary process is identified. Pleural spaces: Unremarkable. No pleural effusion. No pneumothorax. Heart/Mediastinum: Unremarkable. No cardiomegaly. Bones/joints: Unremarkable. XR/XR chest 1V portable [id number] IMPRESSION: 1. Lines and tubes as above. 2. No acute pulmonary process.
--- NOTE | 2025-07-06 01:36 | CTR_ITS ---
PROCEDURE INFORMATION: Exam: CT Head Without Contrast Exam date and time: 07/06/2025 1:52 AM Age: 65 years old Clinical indication: Altered mental status/memory loss; Worsening clinical condition, pupil at 5mm, apneic. PT had 150ml of omni 350 around 22:00 07/05/25; Additional info: Worsening clinical condition, dilated pulpil at 5 mm, apneic TECHNIQUE: Imaging protocol: Computed tomography of the head without contrast. Radiation optimization: All CT scans at this facility use at least one of these dose optimization techniques: automated exposure control; mA and/or kV adjustment per patient size (includes targeted exams where dose is matched to clinical indication); or iterative reconstruction. COMPARISON: CT angio headneck* [id number] 07/05/2025 10:26 PM RADIATION DOSE METRICS: Total DLP (mGy-cm): 879.5 FINDINGS: Brain: Residual contrast is noted within the intracranial vasculature from prior contrast administration. Within these limitations, no acute intracranial hemorrhage is identified. Green-white differentiation is maintained. No evidence of acute ischemic stroke. Cerebral parenchymal volume loss is noted. Cerebral ventricles: No ventriculomegaly. Paranasal sinuses: Visualized sinuses are unremarkable. No fluid levels. Mastoid air cells: Visualized mastoid air cells are well aerated. Bones: Unremarkable. No acute fracture. Soft tissues: Unremarkable. Other findings: Nonstandard positioning somewhat limits evaluation. No mass or mass effect is noted. CT/CT head wo con* [id number] IMPRESSION: Within the limitations of nonstandard positioning and residual intracranial contrast, no evidence of acute intracranial process is noted. No substantial change prior exam dated 07/05/2025. If high clinical concern for acute stroke is present, MRI brain without contrast can be obtained.
--- NOTE | 2025-07-06 01:39 | ED_ITS ---
HPI - Altered Mental Status 2 General: Chief Complaint: Altered Mental Status Stated Complaint: ams Time Seen by Provider: 07/05/25 20:53 Source: EMS Mode of arrival: EMS Limitations: altered mental status History of Present Illness: q Related Data Home Medications ?Medication ?Instructions ?Recorded ?Confirmed potassium gluconate 595 mg (99 mg) 595 mg PO TID@08,15 ,03/12/20 07/02/25 tablet hgaikxx-hvpnqoavvnbsz-mozwtyuz 250 1 tab PO Q6H PRN Pa in 09/14/24 07/02/25 mg-250 mg-65 mg tablet (Excedrin Extra Strength) glycopyrrolate 1 mg tablet 1 mg PO TID 05/14/25 (Robinul) irbesartan 150 mg tablet 150 mg PO DAILY 07/02/2505/19 Previous Rx's ?Medication ?Instructions ?Recorded meclizine 25 mg tablet 25 mg PO DAILY PRN nausea an d 11/04/24 vomiting #30 tabs baclofen 10 mg tablet See Rx Instructions .Route 0 12/19/24 .COMPLEX #360 tabs carvedilol 6.25 mg tablet (Coreg) 6.25 mg PO Q12H #180 tabs 12/19/24 cyanocobalamin (vitamin B-12) 1,000 mcg IM .monthly #2 mL 12/19/24 1,000 mcg/mL injection solution ergocalciferol (vitamin D2) 1,250 50,000 unit PO Q7D # 12 caps 12/19/24 mcg (50,000 unit) capsule fenofibrate micronized 134 mg 134 mg PO DAILY@15 #90 c aps 12/19/24 capsule gabapentin 800 mg tablet 800 mg PO TID #360 tabs 11/27 02/17 levothyroxine 50 mcg tablet 50 mcg PO DAILY@1500 #90 t abs 12/19/24 linaclotide 145 mcg capsule 145 mcg PO BEDTIME #90 cap s 12/19/24 (Linzess) paroxetine HCl 30 mg tablet 30 mg PO DAILY #90 tabs syringe with needle 3 mL 25 gauge #5 ea 12/19/24 x 1 (BD Luer-Rae Syringe) terconazole 0.4 % vaginal cream 1 appful vaginal .at b edtime #45 06/27/25 grams cefdinir 300 mg capsule 300 mg PO BID 10 days #20 ca ps 07/02/25 ondansetron 4 mg disintegrating 4 mg PO Q8H PRN nausea and 07/02/25 tablet vomiting 4 days #14 tabs Allergies Allergy/AdvReac Type Severity Reaction Status Date / Time atorvastatin (From Lipitor) Allergy Unknown known Verified 05/24/25 18:03 ezetimibe (From Zetia) Allergy Unknown unknown Verified 05/24/25 18:03 rosuvastatin (From Crestor) Allergy Unknown unknown Verified 05/24/25 18:03 Afchtfy-GMF-ZfM Reductase Allergy Unknown Unknown Verified 05/24/25 18:03 Inhibitor (Siiicvj-Lzr-Nne Reductase Inhibitor) Sulfa (Sulfonamide Allergy Unknown Unknown Verified 05/24/25 18:03 Antibiotics) sumatriptan (From Imitrex) Allergy Unknown known Verified 05/24/25 18:03 IV contrast dye Allergy ALGY-Anaphy Uncoded 05/24/25 18:03 laxis PFSH ED 2 PFSH: Medical History (Updated 07/06/25 @ 00:18 by Adrianna Huddleston MD) Pneumonia COPD (chronic obstructive pulmonary disease) Dehydration Hyperkalemia Acute kidney injury superimposed on CKD Altered mental status Anxiety, generalized CHF (congestive heart failure), NYHA class III Constipation, slow transit 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 CAD (coronary artery disease) Vitamin B12 deficiency Essential (primary) hypertension Gastric reflux Fibromyalgia muscle pain Osteopenia of multiple sites Chronic bilateral low back pain with bilateral sciatica Vitamin D deficiency Mixed hyperlipidemia Adult onset hypothyroidism Hypotension, unspecified Neuropathic pain of both legs Surgical History History of back surgery History of cholecystectomy History of tonsillectomy History of hysterectomy Family History Other Arthritis Coronary artery disease involving match-e-be-nash-she-wish band coronary artery of match-e-be-n[place]-wish band heart with unstable angina pectoris Diabetes Hypertension Thyroid disease Social History Smoking and tobacco/nicotine status: current every day tobacco/nicotine user Second hand smoke exposure: Yes Alcohol intake: never Substance/Drug Use: unknown Adopted: No Caregiver/support person: Yes Lives independently: No Household members: family Housing: House Marital status: service: No Current occupational status: disabled Do you think of yourself as: Straight/Heterosexual Current gender identity: Female Physical Exam 2 Urinary Catheter Management: Zimmerman: Cath Placed During This Visit: yes Urinary Catheter Date of Insertion: 07/05/25 Urinary Catheter Time of Insertion: 21:03 Procedures Intubation Time out performed: Yes sedative: Etomidate Mg Given: 20 paralytic: Succinylcholine Mg Given: 100 Laryngoscope: Shital ET Tube Size: 8 ET Tube Uncuffed: No Tube Secured Depth (cm): 25 Tube Secured Location: teeth Tube Placement Confirmation: visualized tube passing through cords, equal breath sounds bilaterally, no breath sounds over epigastrium and confirmation by capnometry Patient Tolerated Procedure: well Intubation Complications: none Course 2 Vital Signs: Vital signs: Vital Signs Temperature 95.2 F L 07/05/25 20:56 Pulse Rate 60 07/06/25 00:59 Respiratory Rate 9 L 07/06/25 00:30 Blood Pressure 142/85 07/06/25 00:59 Pulse Oximetry 97 07/06/25 00:59 Oxygen Delivery Me thod Nasal Cannula 07/05/25 22:02 Oxygen Flow Rate 2 07/05/25 22:02 MDM - Altered Mental Status Medical Decision Making Called ICU to intubate patient did not have a her without any difficulty Lab Data 07/05/25 21:00 07/05/25 21:00 Radiology Impressions Chest X-Ray 07/05/25 20:57 IMPRESSION: No acute cardiopulmonary process. Head CT 07/05/25 20:57 IMPRESSION: No large territorial infarct or intracranial bleed. ASSESSMENT: ASPECTS (Juanita Stroke Program Early CT Score) is 10. ADDENDUM: 07/05/25 2236 THIS REPORT CONTAINS FINDINGS THAT MAY BE CRITICAL TO PATIENT CARE. The findings were verbally communicated via telephone conference with DIMAS HINES at 10:35 PM CDT on 07/05/2025. The findings were acknowledged and understood. Chest/Abdomen/Pelvis CT 07/05/25 21:50 IMPRESSION: 1. No pulmonary embolism. 2. No acute infiltrates. IMPRESSION: No acute intra-abdominal process. COMMENTS: Consistent with the [employer]'s Incidental Findings Committee white paper (J Am Jessie Radiol 2018): Any incidental renal lesion less than 1 cm or classified as too small to characterize, or any incidental cystic renal lesion characterized as simple-appearing, is likely benign. No follow-up imaging is recommended for these lesions per consensus recommendations based on imaging criteria. Head/Neck CTA 07/05/25 22:17 IMPRESSION: No evidence of intracranial large vessel occlusion or aneurysm. IMPRESSION: There is no evidence of significant stenosis or occlusion in the carotid or vertebral arteries in the neck. REFERENCES: NASCET CRITERIA. The degree of stenosis in the cervical segment of the internal carotid artery is based on NASCET criteria. Normal is no stenosis. Mild is less than 50% stenosis. Moderate is 50-69% stenosis. Severe is 70% to 99% stenosis. Total occlusion is no detectable patent lumen. ADDENDUM: 07/05/25 6964 Addendum: THIS REPORT CONTAINS FINDINGS THAT MAY BE CRITICAL TO PATIENT CARE. The findings were verbally communicated via telephone conference with DIMAS HINES at 11:32 PM CDT on 07/05/2025. The findings were acknowledged and understood. Laboratory Results WBC 4.25 10^3/uL (3.29-11.43) 07/05/25 21:00 RBC 3.08 10^6/uL (3.85-5.65) L 07/05/25 21:00 Hgb 10.40 g/dL (11.27-16.99) L 07/05/25 21:00 Hct 31.5 % (36-47) L 07/05/25 21:00 MCV 102.3 fl (85-98) H 07/05/25 21:00 MCH 33.8 pg (27-33) H 07/05/25 21:00 MCHC 33.0 g/dL (30-55) 07/05/25 21:00 RDW 14.8 % (12.1-15.1) 07/05/25 21:00 Plt Count 36 10^3/cmm (157-399) L 07/05/25 21:00 MPV Not Reportable 07/05/25 21:00 Neut % (Auto) 56.8 % 07/05/25 21:00 Lymph % (Auto) 28.9 % 07/05/25 21:00 [place] % (Auto) 10.1 % 07/05/25 21:00 Eos % (Auto) 2.8 % 07/05/25 21:00 Baso % (Auto) 0.7 % 07/05/25 21:00 Neut # (Auto) 2.41 10^3/uL (1.8-7.7) 07/05/25 21:00 Lymph # (Auto) 1.2 10^3/uL (0.8-4.8) 07/05/25 21:00 [place] # (Auto) 0.4 10^3/uL (0.2-0.9) 07/05/25 21:00 Eos # (Auto) 0.1 10^3/uL (0.0-0.8) 07/05/25 21:00 Baso # (Auto) 0.0 10^3/uL (0.0-0.1) 07/05/25 21:00 Nucleated RBC % (auto) 0 % 07/05/25 21:00 Nucleated RBCs # 0.0 /100WBC 07/05/25 21:00 PT 13.60 SECONDS (12.1-14.9) 07/05/25 21:00 INR 0.97 (0.8-1.2) 07/05/25 21:00 Specimen Type Arterial 07/05/25 22:47 Sample Site Brachial, right 07/05/25 22:47 ABG pH 7.19 (7.35-7.45) L 07/05/25 22:47 ABG pCO2 56.2 mmHg (35-45) H 07/05/25 22:47 ABG pO2 64.1 mmHg (80.0-100.0) L 07/05/25 22:47 ABG PO2/FiO2 Ratio 228 07/05/25 22:47 ABG HCO3 21.5 mmol/L (22-26) L 07/05/25 22:47 ABG O2 Saturation 90.2 07/05/25 22:47 ABG Base Excess -6.9 mmol/L (-2.0-2.0) L 07/05/25 22:47 Yuriy Test Pos 07/05/25 22:47 A-a O2 Gradient 8.8 mmHg (5-10) 07/05/25 22:47 Hematocrit 33.2 % (37-47) L 07/05/25 22:47 Hgb O2 Saturation 81.5 % (95-100) L 07/05/25 22:47 Carboxyhemoglobin 8.5 %THgb (0.4-20.1) 07/05/25 22:47 Methemoglobin 1.2 % (0.4-1.5) 07/05/25 22:47 Total Hemoglobin 10.8 g/dL (12-16) L 07/05/25 22:47 Sodium 134.0 mmol/L (131-143) 07/05/25 22:47 Potassium 3.2 mmol/L (3.5-5.0) L 07/05/25 22:47 Glucose 102.0 mg/dL (70-115) 07/05/25 22:47 Ionized Calcium 1.1 mmol/L (1.1-1.4) 07/05/25 22:47 O2 Delivery Device Nc 07/05/25 22:47 O2 Liters/Min 2.0 % 07/05/25 22:47 FiO2 28.0 % 07/05/25 22:47 Larriman Helper ID gerca 07/05/25 22:47 Sodium 137 mmol/L (136-145) 07/05/25 21:00 Potassium 3.8 mmol/L (3.5-5.1) 07/05/25 21:00 Chloride 101 mmol/L (98-107) 07/05/25 21:00 Carbon Dioxide 24 mmol/L (22-29) 07/05/25 21:00 Anion Gap 15.8 (5-19) 07/05/25 21:00 BUN 45 mg/dL (8-23) H 07/05/25 21:00 Creatinine 1.4 mg/dL (0.5-0.9) H 07/05/25 21:00 GFR Calculation 37.9 mL/min (90-130) L 07/05/25 21:00 Glucose 99 mg/dL (65-115) 07/05/25 21:00 Calculated Osmolality 296 mOsm/kg (285-295) H 07/05/25 21:00 Lactic Acid 2.8 mmol/L (0.5-2.2) H 07/05/25 21:00 Lactic Acid (Sepsis) 0.4 mmol/L (0.5-2.2) L 07/05/25 23:02 Calcium 8.4 mg/dL (8.5-10.5) L 07/05/25 21:00 Magnesium 1.9 mg/dL (1.7-2.3) 07/05/25 21:00 Total Bilirubin 0.3 mg/dL (0.15-1.2) 07/05/25 21:00 AST 17 U/L (0-32) 07/05/25 21:00 ALT 8 U/L (0-33) 07/05/25 21:00 Alkaline Phosphatase 35 U/L (35-105) 07/05/25 21:00 Troponin T Baseline 33 ng/L (0-10) H 07/05/25 21:00 Troponin T 120 Minute 29.36 ng/L (0-10) H 07/05/25 23:02 Delta Troponin T -3.64 ABS# (0-10) L 07/05/25 23:02 Total Protein 4.6 g/dL (6.6-8.7) L 07/05/25 21:00 Albumin 3.1 g/dL (3.5-5.2) L 07/05/25 21:00 Globulin 1.5 g/dL (1.3-4.6) 07/05/25 21:00 TSH 1.20 uIU/mL (0.27-4.20) 07/05/25 21:00 Urine Color [place] (Yellow) A 07/05/25 21: Urine Appearance Clear (CLEAR) 07/05/25 21:17 Urine pH 5.5 (5-7) 07/05/25 21:17 Ur Specific [place] 1.021 (1.005-1.030) 07/05/25 21:17 Urine Protein 2+ (Negative) A 07/05/25 21: Urine Glucose (UA) Negative (Normal) 07/05/25 21: Urine Ketones Negative (Negative) 07/05/25 21: Urine Blood Trace (Negative) A 07/05/25 21: Urine Nitrate Negative (Negative) 07/05/25 21: Urine Bilirubin Negative (Negative) 07/05/25 21: Urine Urobilinogen 1.0 mg/dL (Negative) 07/05/25 21:17 Ur Leukocyte Esterase Negative (Negative) 07/05/25 21: Urine RBC 6-10 /hpf (0-2) 07/05/25 21: Urine WBC 0-5 /hpf (0-5) 07/05/25 21:17 Ur Squamous Epith Cells 0-5 /hpf (0-5) 07/05/25 21:17 Amorphous Sediment Not Reportable 07/05/25 21:17 Urine Bacteria None seen /hpf (NONE) 07/05/25 21:17 Hyaline Casts 5.77 /lpf 07/05/25 21:17 No radiology studies performed this visit Discharge Plan Discharge Patient Disposition: Admitted As Inpatient Admit Provider: Adrianna Huddleston Clinical Impression: Altered mental status, Septic shock, Hypotension Condition: Stable Coding Level of Care Code ED Library Clerk Talking Books for Antonia Medina
[2025-07-06] MEDS: propofol 1,000 MG/100 ML INJ 1.52 MG IV (01:45)
--- NOTE | 2025-07-06 02:00 | PC.NURSE ---
Intubation Patient arrived from ER via stretcher. Soon after arrival, patient's respiratory rate decreased to 5/minute with periods of apnea while blood pressure 160/134. Bagging initiated. RT at bedside. Dr. Huddleston contacted; orders received to prepare for intubation. Dr. Skaggs arrived on unit for intubation. Verbal orders received for 10 mg labetalol IVP once, etomidate, and succinylcholine. Medications administered per DEC. Intubation complete at 0133. Verbal order received for propofol for continuous sedation.
[2025-07-06 02:35] LABS: ABG PCO2 39.9 mmHg (35-45); ABG PH Result 7.32 (7.35-7.45); Alveolar-Arterial Oxygen Gradi 25.9 mmHg (5-10); Arterial Blood Gas Hematocrit 40.1 % (37-47); Blood Gas Allen Test Pos; Blood Gas Operator Identificat BD; Blood Gas Sample Site Radial, right; Blood Gas Sample Type Arterial; Blood Gas Tidal Volume 0.45; Carboxyhemoglobin 4.1 %THgb (0.4-20.1); Glucose Level-ABG 157.0 mg/dL (70-115); HCO3 ABG 20.6 mmol/L (22-26); Ionized Calcium Level - ABG 1.1 mmol/L (1.1-1.4); Methemoglobin 1.1 % (0.4-1.5); Oxygen Saturation ABG 98.6; PEEP 8.0 cmH20; PO2 ABG 107.0 mmHg (80.0-100.0); PO2 FiO2 Ratio Arterial Blood 214; Potassium Level - ABG 4.5 mmol/L (3.5-5.0); Sodium Level - ABG 136.0 mmol/L (131-143)
--- NOTE | 2025-07-06 02:40 | PC.NURSE ---
Temperature, Sedation Patient's temperature 91F rectally; maddi hugger applied. Furthermore, patient's blood pressure 110/73. Dr. Huddleston notified; telephone orders received to pause propofol, increase d5ns to 100 ml/hr, and titrate levophed to maintain systolic blood pressure of 150-170.
[2025-07-06] MEDS: dextrose 5%-sod chloride 0.9% 1,000 ML 100 ML IV ×3 (03:02→23:06)
[2025-07-06] MEDS: pantoprazole 40 mg SDV IVP (03:02)
[2025-07-06 03:16] LABS: Troponin 5 6HR 44.59 ng/L (0-10); Troponin 5 6HR Delta 11.59 ng/L (0-12)
--- NOTE | 2025-07-06 03:45 | PC.NURSE ---
Sedation Patient opening eyes spontaneously and moving arms in an agitated manner. Pupils still fixed, no commands obeyed. Dr. Huddleston contacted and order received to restart propofol and start fentanyl drip.
[2025-07-06] MEDS: fentaNYL 1,000 MCG/100 ML BAG 2.5 MCG IV (03:55)
[2025-07-06] MEDS: piperacillin-tazobactam 3.375 GM in sodium chloride 0.9% (plus) 50 ML IV ×3 (05:34→22:12)
--- NOTE | 2025-07-06 08:14 | P.PN_ITS ---
Subjective 2 Subjective: Patient presents on the vent sedated. They did wean sedation around 3 AM and patient became agitated Vitals/I&O/Wt Last Vital Signs Temp 97.2 F L 07/06/25 07:30 Pulse 77 07/06/25 06:15 Resp 16 07/06/25 06:15 BP 123/90 07/06/25 06:15 Pulse Ox 100 07/06/25 06:15 O2 Del Method Mechanical Ventilation 07/06/25 06:15 O2 Flow Rate 2 07/05/25 22:02 FiO2 40 07/06/25 04:00 07/05/25 07/06/25 07/06/25 22:59 06:59 14:59 Intake Total 649.4 / 649.4 1396.651 / 2046.051 6.855 / 6.855 Output Total 900 / 900 Balance 649.4 / 649.4 496.651 / 1146.051 6.855 / 6.855 Weight last 48 hrs Weight 24.313 kg Weight 54 kg Weight 50.802 kg Weight 40.823 kg Physical Exam 2 Narrative: Patient sedated on the vent she appears much older than her stated age Heart is regular distant no loud murmurs Lungs clear to auscultation anteriorly and laterally without wheezes rales rhonchi Abdomen soft nontender not distended positive bowel sounds Extremities no clubbing cyanosis or edema; bottom of feet with thick dry skin left foot with dirt. Toenails are long. Neuro patient responds to deep sternal rub. Her pupils may be minimally reactive by 1 mm. Her toes are downgoing. Urinary Catheter Management: Zimmerman: Cath Placed During This Visit: yes Urinary Catheter Date of Insertion: 07/05/25 Urinary Catheter Time of Insertion: 21:03 Data 07/05/25 21:00 07/05/25 21:00 Micro: Microbiology 07/05/25 21:08 Blood Culture - Preliminary Blood SPECIMEN COLLECTED 07/05/25 21:00 Blood Culture - Preliminary Blood SPECIMEN COLLECTED A&P Assessment and plan 1. Obtundation: 2. Hypotension: 3. Septic shock: 4. Altered mental status: 5. Recent urinary tract infection: 6. Thrombocytopenia: Plan: #1 Obtundation secondary to change in mental status from baseline cannot rule out CVA versus sepsis - Patient was treated for possible brainstem stroke - She is status post TNK - Follow-up CT does not show hemorrhage or ischemia - On vent due to central apnea on presentation. Lungs compliant. Discussed with RT. We will hold sedation and assess lung function and ability to breathe over the vent #2 Hypotension--- - Remains on Levophed to prevent hypotension and allow permissive hypertension with stroke suspected - Continue with gentle hydration patient is still very dry #3 Prerenal azotemia secondary to dehydration - Continue gentle hydration with D5 normal saline at a gentle rate of 75 mL/h - Patient received 2 L normal saline IV bolus in the ED - Follow electrolytes and optimize accordingly #5 Recent UTI with presentation of hypotension -Status post panculture from blood and urine - Micro biology on the urine from 07/02/2025 was negative it showed 20-30,000 colonies of mixed urogenital elizabeth -Empiric antibiotics with vancomycin and Zosyn PDMP PDMP Reviewed: Not Reviewed Attestations 2 Medical Necessity Statement*: Patient presented obtunded change in mental status does not follow command and status post tPA will need at least 2 midnights for optimization of care patient is inpatient Coding Level of Care Code Acute Code for Chg Fwd Diagnoses Obtundation R40.1 Hypotension I95.9 Septic shock A41.9; R65.21 Altered mental status R41.82 Recent urinary tract infection Z87.440 Thrombocytopenia D69.6
--- NOTE | 2025-07-06 08:15 | PC.PHAR ---
Pt is unable to verify her medications. [facility] opens at 9am-will request current med list from them as soon as possible. Last records from here are dated from Sep 2024 to Nov 2024,
--- NOTE | 2025-07-06 08:57 | ECG_ITS ---
[facility] Test Date: 2025-07-06 Pat Name: Viola Ennis Department: Room: ICU03 Gender: Female Environmental Emergencies Planner: : 1960 Requested By: Yoselin Skaggs Order Number: [id number] Reading MD: GIULIANA MCCORD Measurements Intervals [place] Rate: 73 P: 85 NE: 154 QRS: 26 QRSD: 71 T: 39 QT: 387 QTc: 428 Interpretive Statements SINUS RHYTHM Compared to ECG 07/05/2025 23:01:28 Prolonged QT interval no longer present Electronically Signed On 07-07-2025 20:19:25 CDT by GIULIANA MCCORD [email or web address]
--- NOTE | 2025-07-06 09:54 | PC.PHAR ---
Pt transfered prescriptions aout from [facility] to [facility] in March. They filled 90 day supplies at that time. Recently filled antibiotic Cefdinir 300mg and Zofran 4mg odt 07/02/25-they were picked up.
--- NOTE | 2025-07-06 10:16 | PC.NURSE ---
Progress note: Patient suddenly began turning head back and forth and sitting up forcefully, not moving her legs or feet, not following commands, when calling patients name she once turned her head to look at me, not moving eyes. Patient does not follow commands. Family called into room to calm patient, patient did not calm. Dr. Mitchell called and a verbal order received for propofol to patient comfort. Dr. Mitchell is on her way to assess patient.
[2025-07-06] MEDS: norepinephrine 4 MG/250 ML BAG 22.5 MG IV (10:28)
[2025-07-06] MEDS: dexmedeTOMIDine 0.9 % NaCL 400 MCG/100 ML PREMIX IV (11:16)
--- NOTE | 2025-07-06 11:23 | XRR_ITS ---
PROCEDURE INFORMATION: Exam: XR Chest Exam date and time: 07/06/2025 11:36 AM Age: 65 years old Clinical indication: Device placement; Other: Og tube placement TECHNIQUE: Imaging protocol: Radiologic exam of the chest. Views: 1 view. COMPARISON: CR (CHEST, ) 07/06/2025 1:41 AM FINDINGS: Tubes, catheters and devices: NG tube is in the stomach. ETT and right neck central line in position. Lungs: Pulmonary vessels are within normal limits. Right basilar linear density. Left lung is clear. Pleural spaces: No pneumothorax. Heart/Mediastinum: Cardiomediastinal silhouette is within normal limits. Bones/joints: Unremarkable. XR/XR chest 1V portable [id number] IMPRESSION: 1. NG tube is in the stomach. 2. Right basilar linear density. Finding could represent scarring or atelectasis.
--- NOTE | 2025-07-06 14:03 | PM.MISC ---
Miscellaneous Note Purpose of Documentation: Meeting with son and his Note: Met with patient's son and his at the bedside. Son states that Thursday when he spoke to his mother she was actually arranging her with him and explaining to him her wishes. He notes his mother would not want to live if the machines were keeping her alive he reports that she has been suffering for many years with an identified abdominal pain back pain he is she has been losing weight without trying she has had jaw issues. Son said that if we were to extubate her and she would fail extubation she would not want to be reintubated. I explained brainstem stroke I explained why an MRI is needed in order to make that diagnosis and why we are unable to obtain while on the vent. I explained that she shows signs of a brainstem stroke. He asked about sepsis and I explained that would not cause the neurodeficits that were seeing. Thus, no escalation of care. I will change her to allow natural . She is to be remain intubated until reassessment
--- NOTE | 2025-07-06 15:32 | PC.NURSE ---
program coordinator executive education rounds at 0930- pt intubated and sedated, left stroke education book bedside. Will round and review when patient is extubated and awake.
--- NOTE | 2025-07-06 18:07 | PM.SAN ---
Stroke Alert Activation ED Arrival Date: 07/05/25 ED Arrival Time: 20:56 ED Physican at Bedside: 20:46 Last Known Normal/at Baseline: 3-4 hours ago Other Last Known Well Infomation: This was a very complex and difficult problem. The patient arrived with hypotension and altered mental status. She was hypotensive for an unknown time. She had been dizzy throughout the day and then became unresponsive. Her blood pressure was around 60 systolic when EMS arrived and when she came to us she required fluid resuscitation and it took some time before Dr. Skaggs discovered that the patient still would not respond even though her blood pressure was up. It was not clear whether she had post anoxic encephalopathy or whether she might be having a brainstem stroke. Her CT of the head was negative. Dr. Skaggs called me around 11 PM and we discussed whether to give TNK. The patient did not have any contraindication to thrombolysis and based on the times that we will given she was right at the 4-1/2-hour severiano from her unresponsive state starting at 7 PM. We agreed that if this were a stroke it would be the only opportunity to give her thrombolysis and the family gave informed consent and she received TNK. We recognized that the patient might not be having a stroke but this would be the only opportunity to treat her if it was posterior circulation ischemia. CT angiogram did not show basilar artery thrombosis or indeed any large vessel occlusion. Stroke Alert Activated by: Dr. Skaggs Stroke Alert Activation Time: 23:09 Stroke MD @ Bedside Time: 23:09 NIH stroke score NIHSS: Level Of Consciousness - 1a: 3 Level Of Consciousness Questions - 1b: Neither Correct Level Of Consciousness Commands - 1c: Neither Correct Best Gaze - 2: Normal (Oculocephalic movements intact) Visual [place] - 3: No Visual Loss (Unknown. No response to threat) Facial Palsy - 4: Normal Motor Arm Right - 5: No Effort Against [place] Motor Arm Left - 5: No Effort Against [place] Motor Leg Right - 6: No Effort Against [place] Motor Leg Left - 6: No Effort Against [place] Limb Ataxia - 7: Absent Sensory - 8: Normal (No response) Best Language - 9: Mute; Global Aphasia Stroke Alert Data/Treatment Time to CT of Head: 20:57 CT Impression: Negative except for diffuse profound periventricular white matter disease tPA Started Time: tPA Started - Time: 23:25 Other Patient & Family Education: The family was given to understand that this patient's prognosis is poor and that her changes may be from sepsis and hypotension rather than stroke Critical Care Time Critical Care Time: less than 30 mins A&P Assessment and plan 1. [place] coma scale total score 3-8, in the field (EMT or ambulance): 2. Brainstem stroke: This 65-year-old woman presented with profound mental status changes, hypotension and did not recover consciousness after resuscitation and had been dizzy throughout the day. There was concern that she suffered an acute brainstem stroke at the time of onset of symptoms at 7 PM and for that possibility we agreed to give her thrombolytic therapy as she was 4-1/2 hours from onset of symptoms. We recognize that there is a chance that her symptoms are due to hypotension and may not be due to thrombosis. Plan: Admit ICU PDMP PDMP Reviewed: Not Reviewed Coding Level of Care Code Acute Code for Chg Fwd Diagnoses [place] coma scale total score 3-8, in the field (EMT or ambulance) R40.9092 Altered mental status type: coma Coma depth: Lora coma 3-8 Coma timing: in the field (EMT or ambulance) Brainstem stroke I63.9
--- NOTE | 2025-07-06 19:21 | PC.NURSE ---
Dr. Mitchell requested patient be on light sedation, propofol, fentanyl. See MAR.
--- NOTE | 2025-07-06 19:27 | P.PN_ITS ---
Subjective 2 Subjective: I talked with Dr. Skaggs last night and we agreed to give the patient TNK because she was 4-1/2 hours out from sudden onset of severe weakness and dizziness and collapse and we were not sure it was not a brainstem stroke. She received TNK and then her CT angiogram did not show basilar artery thrombosis. We were suspicious that her problem was from hypotension as her blood pressure was very low when EMS arrived. Through the day she has not been waking up. She has been off of sedatives since this morning. She has been losing an average of 4 pounds a month over the last year. She has been experiencing right upper quadrant pain. She was here several days ago on 07/02 complaining of vomiting and recently had a CT of the abdomen in April that showed left hydronephrosis (her pain was on the other side) and she was in the process of further workup. Her son says that she was just finishing up dinner and walking toward the living room when she complained of dizziness and she collapsed. She was eased to the floor by her niece. EMS arrived and found her blood pressure in the 60s. On arrival here she was profoundly hypotensive with blood pressure in the 50s. She was somnolent but initially somewhat arousable. She became less arousable over the following [address] Skaggs got her blood pressure up and gave her fluids but even when her blood pressure came up she was even less responsive. I was called stat to the bedside because of unusual behaviors. The patient is responding to startle by turning her head to the right and eye opening. Her son was fairly convinced that she made eye contact with him when he stood to the right of the bed and he thought that she followed him to some degree but not to the left. She never looks to the left. She has been doing this off and on through the day in response to any loud stimulus. Vitals/I&O/Wt Last Vital Signs Temp 98.8 F 07/06/25 18:44 Pulse 63 07/06/25 18:44 Resp 16 07/06/25 18:44 BP 148/86 07/06/25 18:44 Pulse Ox 98 07/06/25 17:44 O2 Del Method Mechanical Ventilation 07/06/25 17:00 O2 Flow Rate 2 07/05/25 22:02 FiO2 30 07/06/25 17:44 07/06/25 07/06/25 07/06/25 06:59 14:59 22:59 Intake Total 1396.651 / 2046.051 1198.343 / 1198.343 60.287 / 1258.630 Output Total 900 / 900 200 / 200 50 / 250 Balance 496.651 / 1146.051 998.343 / 998.343 10.287 / 1008.630 Weight last 48 hrs Weight 125 lb Weight 53 lb 9.6 oz Weight 119 lb 0.794 oz Weight 112 lb Weight 90 lb Physical Exam 2 Narrative: There is no response to softly spoken voice. Corneal reflexes were absent. PERRL. Oculocephalic movements were absent. There was no response to supraorbital pressure. Articulating of the eyelids had no response. There was no response to deep nailbed pressure. Reflexes were absent. Plantar response was neither upgoing nor downgoing. I completed my of neurologic assessment and then stood back from the bed and clapped loudly. There was an immediate myoclonic jerk with head turning to the right, eye opening, and the patient appeared to meet eye contact with me. She gradually relaxed back into a position of slightly turned to the left as she was in the bed. The procedure was repeated and this time I clapped several times very loudly and close to her. Again she turned briskly to the right, her eyes open wide and she appeared to make eye contact with the examiner. When I moved my face toward the midline she appeared to follow. On the third occasion she had associated mouth movement and her right hand pushed on the bed. All of her movements were stereotypic but complex. Despite this voluntary appearing behavior, she did not respond to voice, would not squeeze my hand, and when I repeated oculocephalic movements they were again absent and she did not meet my gaze without the full startle stereotypic behavior. Urinary Catheter Management: Zimmerman: Cath Placed During This Visit: yes Reason for Continuing Indwelling Catheter: Accurate Measurement of Urinary Output in Critically Ill Patients Urinary Catheter Date of Insertion: 07/05/25 Urinary Catheter Time of Insertion: 21:03 Data 07/05/25 21:00 07/05/25 21:00 Micro: Microbiology 07/05/25 21:08 Blood Culture - Preliminary Blood SPECIMEN COLLECTED 07/05/25 21:00 Blood Culture - Preliminary Blood SPECIMEN COLLECTED A&P Assessment and plan 1. Anoxic brain damage: This patient has a most unusual movement consisting of an extreme startle reaction with turning of the head to the right, eye opening and appearing to fix on the examiner and even follow a short distance toward the midline with her eyes, yet has no eye movements or any voluntary response to pain or commands. She received TNK for possible brainstem stroke after she presented with collapse and dizziness but she was profoundly hypotensive on presentation and all of her problems may be post anoxic. I took time to talk with her son. It would be my recommendation that life support be continued for the next day or 2 and not advanced. I would not recommend extreme measures beyond the life support that she is already maintaining. She is still on Levophed to maintain her blood pressure. In case she is having seizure activity I think it would be reasonable to start Keppra 500 mg IV 3 times a day. I gave her 1 dose if you want to continue that tomorrow. Because of her weight loss I think she should get some thiamine and check a B12. I took a significant amount of time to examine the patient, discussed with Dr. Mitchell, discussed with the nursing staff and the patient's family. 2. [place] coma scale total score 3-8, in the field (EMT or ambulance): 3. Macrocytic anemia: 4. Protein calorie malnutrition: 5. Brainstem stroke: PDMP PDMP Reviewed: Not Reviewed Attestations 2 Medical Necessity Statement*: Profound coma and neurologic disorder Critical Care Time: Critical Care Time (min): 55 Coding Level of Care Code Critical Care >/= 30 minutes Diagnoses Anoxic brain damage G93.1 [place] coma scale total score 3-8, in the field (EMT or ambulance) R40.2431 Altered mental status type: coma Coma depth: [place] coma 3-8 Coma timing: in the field (EMT or ambulance) Macrocytic anemia D53.9 Protein calorie malnutrition E46 Brainstem stroke I63.9 Time Spent (min) 55
[2025-07-06] MEDS: thiamine 500 MG in sodium chloride 0.9% (100 ml) 100 ML 210 MG IV (21:16)
[2025-07-06] MEDS: levETIRAcetam 500 MG/100 ML PREMIX 400 MG IV (21:30)
[2025-07-07] VITALS (67 sets, daily range): BP systolic 87–206; BP diastolic 55–117; PULSE 49–97; RESP 16–17; TEMP 35–37.2; O2SAT 90–100
[2025-07-07] MEDS: pantoprazole 40 mg SDV IVP (00:39)
[2025-07-07] MEDS: dexmedeTOMIDine 0.9 % NaCL 400 MCG/100 ML PREMIX IV (00:45)
[2025-07-07 01:55] LABS: Vitamin B12 429 pg/mL (232-1245)
[2025-07-07 02:50] LABS: Hematocrit 29.2 % (36-47); Hemoglobin 9.70 g/dL (11.27-16.99); Mean Corpuscular HGB Conc 33.2 g/dL (30-55); Mean Corpuscular Hemoglobin 33.2 pg (27-33); Mean Corpuscular Volume 100.0 fl (85-98); Nucleated Red Blood Cells % 0 %; Platelet Count 45 10^3/cmm (157-399); Red Blood Count 2.92 10^6/uL (3.85-5.65); White Blood Count 9.13 10^3/uL (3.29-11.43)
[2025-07-07 03:11] LABS: Alanine Aminotransferase 8 U/L (0-33); Albumin Level 2.8 g/dL (3.5-5.2); Alkaline Phosphatase 32 U/L (35-105); Anion Gap 14.7 (5-19); Aspartate Amino Transferase 17 U/L (0-32); Blood Urea Nitrogen 26 mg/dL (8-23); Calcium 7.6 mg/dL (8.5-10.5); Carbon Dioxide 20 mmol/L (22-29); Chloride 112 mmol/L (98-107); Creatinine Clr Calc Pharmacy 50.8966; Globulin 1.9 g/dL (1.3-4.6); Glucose 126 mg/dL (65-115); Magnesium 1.7 mg/dL (1.7-2.3); Osmolality Calculated 304 mOsm/kg (285-295); Sodium 144 mmol/L (136-145); Total Protein 4.7 g/dL (6.6-8.7)
[2025-07-07 03:19] LABS: Potassium 2.7 mmol/L (3.5-5.1)
--- NOTE | 2025-07-07 03:40 | PC.NURSE ---
Potassium Patient's potassium level critical at 2.7 while her phosphorous level is 1.7. Dr. Huddleston notified; orders received for 40 meq KCL IV, and 40 meq KCL and 2 phosphorous tablets to be administered per OG tube.
[2025-07-07 03:45] LABS: ABG PCO2 28.9 mmHg (35-45); ABG PH Result 7.47 (7.35-7.45); Alveolar-Arterial Oxygen Gradi 15.6 mmHg (5-10); Arterial Blood Gas Hematocrit 32.1 % (37-47); Blood Gas Allen Test Pos; Blood Gas Operator Identificat BD; Blood Gas Sample Site Radial, right; Blood Gas Sample Type Arterial; Blood Gas Tidal Volume 0.45; Carboxyhemoglobin 1.4 %THgb (0.4-20.1); Glucose Level-ABG 127.0 mg/dL (70-115); HCO3 ABG 21.1 mmol/L (22-26); Ionized Calcium Level - ABG 1.1 mmol/L (1.1-1.4); Methemoglobin 1.2 % (0.4-1.5); Oxygen Saturation ABG 93.0; PEEP 8.0 cmH20; PO2 ABG 57.6 mmHg (80.0-100.0); PO2 FiO2 Ratio Arterial Blood 192; Potassium Level - ABG 2.6 mmol/L (3.5-5.0); Sodium Level - ABG 142.0 mmol/L (131-143)
[2025-07-07] MEDS: piperacillin-tazobactam 3.375 GM in sodium chloride 0.9% (plus) 50 ML IV ×3 (04:27→21:35)
[2025-07-07] MEDS: lidocaine 1% 5 ML in potassium chloride premix 100 ML 26.25 ML IV ×2 (04:29→10:48)
[2025-07-07] MEDS: potassium chloride oral liq 20 mEq/15 mL UDC 40 MEQ PO (04:32)
--- NOTE | 2025-07-07 06:25 | PC.NURSE ---
Malaika siddiqui reapplied for low temperatures
[2025-07-07] MEDS: dextrose 5%-sod chloride 0.9% 1,000 ML 100 ML IV ×2 (09:21→19:13)
--- NOTE | 2025-07-07 09:25 | PC.NURSE ---
clinical coordinator rounds- rounded with [employer] and neurologist, family bedside.
[2025-07-07] MEDS: levETIRAcetam 1,000 MG/100 ML PREMIX 400 MG IV ×2 (10:49→21:35)
[2025-07-07] MEDS: thiamine 500 MG in sodium chloride 0.9% (100 ml) 100 ML 210 MG IV (10:49)
--- NOTE | 2025-07-07 11:37 | P.PN_ITS ---
Subjective 2 Subjective: Patient off sedation. Vitals/I&O/Wt Last Vital Signs Temp 98.0 F 07/07/25 11:00 Pulse 55 L 07/07/25 11:00 Resp 16 07/07/25 11:20 BP 165/87 07/07/25 11:00 Pulse Ox 100 07/07/25 11:20 O2 Del Method Mechanical Ventilation 07/07/25 04:15 O2 Flow Rate 2 07/05/25 22:02 FiO2 30 07/07/25 11:20 07/06/25 07/07/25 07/07/25 22:59 06:59 14:59 Intake Total 1136.835 / 2335.178 299.851 / 2635.029 1077.593 / 1077.593 Output Total 50 / 250 625 / 875 Balance 1086.835 / 2085.178 -325.149 / 1087.342 7308.593 / 1077.593 Weight last 48 hrs Weight 56 kg Weight 24.721 kg Weight 56.699 kg Weight 24.313 kg Weight 54 kg Weight 50.802 kg Weight 40.823 kg Physical Exam 2 Narrative: Patient off sedation Neurologic: Patient responds to sternal rub. Her pupils remain minimally reactive at 1 mm. She has a corneal reflex. Doll's eyes are abnormal. She has a cough reflex to suction on the vent. She is breathing over the vent but does not pull enough volume. She does not respond to nailbed pressure on the arms. Toes remain downgoing. NIH: 32 Heart is regular distant no loud murmurs Lungs clear to auscultation anteriorly and laterally without wheezes rales rhonchi Abdomen soft nontender not distended positive bowel sounds Extremities no clubbing cyanosis or edema; bottom of feet with thick dry skin left foot with dirt. Toenails are long. Urinary Catheter Management: Zimmerman: Cath Placed During This Visit: yes Reason for Continuing Indwelling Catheter: Accurate Measurement of Urinary Output in Critically Ill Patients Urinary Catheter Date of Insertion: 07/05/25 Urinary Catheter Time of Insertion: 21:03 Data 07/07/25 02:40 07/07/25 02:40 Micro: Microbiology 07/05/25 21:08 Blood Culture - Preliminary Blood NEGATIVE TO DATE 07/05/25 21:00 Blood Culture - Preliminary Blood NEGATIVE TO DATE A&P Assessment and plan 1. Acute ischemic VBA brainstem stroke: 2. Obtundation: 3. Patient tolerating mechanical ventilation: 4. Hypotension: 5. Septic shock: 6. Recent urinary tract infection: 7. Thrombocytopenia: 8. Hypophosphatemia: 9. Hypokalemia: Plan: Suspected acute ischemic vertebrobasilar stroke. - She is status post TNK -given on 07/05/2025 23:25 - CT 4 1/2 hr later does not show hemorrhage or ischemia - Initially patient with significant deficits. - Patient's son and other family members report patient being in a lot of pain with her back as well as abdominal pain that had not been diagnosed and they were afraid patient was suffering. - Now the patient's neurologic status is slightly improving and we are going to continue supportive care -DNR and no escalation of care remain in place - Recommend transfer to a level 1 stroke center. - Family is contemplating this decision; however they are leaning towards declining transfer - Will order CT head for official post tPA follow-up Possible seizures: -Patient received Keppra 500 x 1 last night -Patient placed scheduled Keppra 1000 mg every 12 hours hypotension - Remains on Levophed to prevent hypotension and allow permissive hypertension per poststroke protocol - Continue with gentle hydration Prerenal azotemia secondary to dehydration - Continue gentle hydration with D5 normal saline at a gentle rate of 75 mL/h - Patient received 2 L normal saline IV bolus in the ED Electrolyte abnormality-replace potassium today. - Patient is hypophosphatemia - Holding tube feeds for now Recent UTI with presentation of hypotension -Status post panculture from blood and urine - Micro biology on the urine from 07/02/2025 was negative it showed 20-30,000 colonies of mixed urogenital elizabeth -Empiric antibiotics with vancomycin and Zosyn PDMP PDMP Reviewed: Not Reviewed Attestations 2 Medical Necessity Statement*: Patient presented obtunded change in mental status does not follow command and status post tPA will need at least 2 midnights for optimization of care patient is inpatient Coding Level of Care Code Acute Code for [facility] Fwd Diagnoses 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
--- NOTE | 2025-07-07 12:03 | CT_ITS ---
WS: [id number] CT HEAD TECHNIQUE: Noncontrast CT of the head obtained from the skullbase to the vertex. CLINICAL INFORMATION: s/p TKN COMPARISON: CT 07/06/2025 DLP: 1154.[address] scans at [facility] use at least one of these dose optimization techniques: automated exposure control; mA and/or kV adjustment per patient size (includes targeted exams where dose is matched to clinical indication); or iterative reconstruction. FINDINGS: No evidence of intracranial hemorrhage or mass effect. Ventricular system and basal cisterns are patent. Mild small vessel changes with moderate parenchymal volume loss. No extra-axial fluid collections. No evidence of mass or mass effect. Vascular calcification Mild mucosal thickening in the ethmoid air cells. Mastoid air cells are well aerated. Endotracheal tube. CT/CT head wo con* [id number] IMPRESSION: 1. No evidence of intracranial hemorrhage or mass effect. 2. No acute intracranial findings.
--- NOTE | 2025-07-07 16:09 | PC.SOCIAL ---
*IMM Not able to be received* Pt unresponsive on Vent, No discharge in the next day or two. Will attempt at a later time.
[2025-07-07] MEDS: propofol 1,000 MG/100 ML INJ 1.52 MG IV (19:55)
--- NOTE | 2025-07-07 20:05 | PC.NURSE ---
Addendum entered by Trcay Kellogg RN 07/08/25 00:13: Propofol waste witnessed with GLORIA Faust. Original Note: when switching out propofol medication and tubing 35 mL wasted and witnessed by Kristen Kellogg RN
[2025-07-07 22:00] LABS: Alanine Aminotransferase 9 U/L (0-33); Albumin Level 2.9 g/dL (3.5-5.2); Alkaline Phosphatase 30 U/L (35-105); Anion Gap 11.1 (5-19); Aspartate Amino Transferase 18 U/L (0-32); Blood Urea Nitrogen 18 mg/dL (8-23); Calcium 7.6 mg/dL (8.5-10.5); Carbon Dioxide 22 mmol/L (22-29); Chloride 110 mmol/L (98-107); Creatinine Clr Calc Pharmacy 61.9283; Globulin 2.0 g/dL (1.3-4.6); Glucose 86 mg/dL (65-115); Magnesium 1.6 mg/dL (1.7-2.3); Osmolality Calculated 289 mOsm/kg (285-295); Potassium 4.1 mmol/L (3.5-5.1); Sodium 139 mmol/L (136-145); Total Protein 4.9 g/dL (6.6-8.7)
--- NOTE | 2025-07-07 23:21 | PC.NURSE ---
Midodrine order Dr. Huddleston contacted due to patients blood pressure being 131/77 at the time 10mg Midodrine was scheduled. Dr. Huddleston gave telephone orders at this time to discontinue the Midodrine order. Scheduled dose held and MAR reflected to show order change.
--- NOTE | 2025-07-07 23:25 | PC.NURSE ---
Hypertension Dr. Huddleston contacted due to patient having an elevated blood pressure of 193/144. Dr. Huddleston gave verbal orders at this time to give one time dose of 50mg Hydralazine through OG tube. RAFAEL reflected to show order
[2025-07-08] VITALS (33 sets, daily range): BP systolic 86–183; BP diastolic 54–104; PULSE 65–108; RESP 8–16; TEMP 37.2–38.3; O2SAT 95–100
--- NOTE | 2025-07-08 00:04 | PC.NURSE ---
Patient still has elevated blood pressure of 188/106 since giving 50mg Hydralazine one hour ago at 2300. Contacted Dr[address] Huddleston who gave telephone orders at this time to give 20mg Hydralazine IVP x1
[2025-07-08] MEDS: hyDRALAzine 20 mg/mL INJ 1 mL IVP (00:09)
[2025-07-08] MEDS: pantoprazole 40 mg SDV IVP (00:36)
[2025-07-08] MEDS: ondansetron 2 mg/ML SDV 2 mL 4 MG IVP (00:52)
--- NOTE | 2025-07-08 01:00 | PC.NURSE ---
Sedation Patient's respiratory rate in the 20s, abdominal muscle use noted with a large tidal volume. Ventilator minute volume alarming. Patient's blood pressure and heart rate elevated. Patient appearing uncomfortable. Fentanyl and propofol titrated per DEC.
--- NOTE | 2025-07-08 01:28 | XRR_ITS ---
PROCEDURE INFORMATION: Exam: XR Chest Exam date and time: 07/08/2025 1:32 AM Age: 65 years old Clinical indication: Other: Concern for aspiration; Prior surgery; Surgery date: 6+ months; Surgery type: Shoulder, spinal fusion, gallbladder, hysterectomy; Additional info: Possible aspiration TECHNIQUE: Imaging protocol: Radiologic exam of the chest. Views: 1 view. COMPARISON: CR XR chest 1V portable [id number] 07/06/2025 11:36 AM FINDINGS: Lungs: Mild left lower lung zone atelectasis. Lungs are otherwise clear. No pneumothorax. No definite pleural effusion. Pleural spaces: See Lungs finding. Heart/Mediastinum: Unremarkable. No cardiomegaly. Bones/joints: Fixation rods and screws thoracic spine. Gastrointestinal tract: Dilated bowel loops similar to prior. XR/XR chest 1V portable [id number] IMPRESSION: No evidence of acute intrathoracic abnormality.
--- NOTE | 2025-07-08 01:30 | PC.NURSE ---
Patients temperature has been rising throughout shift, 1999 temperature was 98.9 and currently at 0130 it is [address] Huddleston who gave telephone orders for 1G Tylenol through IV.
--- NOTE | 2025-07-08 01:33 | PC.NURSE ---
Emesis Episode Patient had an episode of emesis which was promptly suctioned out with a yaunker, Dr. Huddleston notified and gave telephone orders for chest xray
[2025-07-08] MEDS: acetaminophen 1,000 MG/100 ML PIGGYBACK 400 MG IV (01:48)
[2025-07-08] MEDS: chlorhexidine gluconate 4% Btl 118 mL 1 APPLIC TOPICAL (03:57)
[2025-07-08 04:26] LABS: Hematocrit 29.9 % (36-47); Hemoglobin 9.80 g/dL (11.27-16.99); Mean Corpuscular HGB Conc 32.8 g/dL (30-55); Mean Corpuscular Hemoglobin 33.3 pg (27-33); Mean Corpuscular Volume 101.7 fl (85-98); Nucleated Red Blood Cells % 0 %; Red Blood Count 2.94 10^6/uL (3.85-5.65); White Blood Count 8.29 10^3/uL (3.29-11.43)
[2025-07-08 04:46] LABS: Anion Gap 12.6 (5-19); Blood Urea Nitrogen 17 mg/dL (8-23); Calcium 7.5 mg/dL (8.5-10.5); Carbon Dioxide 21 mmol/L (22-29); Chloride 109 mmol/L (98-107); Glucose 84 mg/dL (65-115); Osmolality Calculated 289 mOsm/kg (285-295); Potassium 3.6 mmol/L (3.5-5.1); Sodium 139 mmol/L (136-145)
[2025-07-08 04:47] LABS: Creatinine Clr Calc Pharmacy 55.7354
[2025-07-08] MEDS: dextrose 5%-sod chloride 0.9% 1,000 ML 100 ML IV ×2 (05:08→13:41)
[2025-07-08] MEDS: piperacillin-tazobactam 3.375 GM in sodium chloride 0.9% (plus) 50 ML IV ×2 (05:08→13:09)
[2025-07-08 05:32] LABS: Platelet Count 25 10^3/cmm (157-399); Slide Review Slide Review Perform
--- NOTE | 2025-07-08 05:42 | PC.NURSE ---
Critical Platelet Count Patient has a Platelet count of 25 this morning, called Dr. Huddleston to inform her. At this time Dr. Huddleston states to continue to monitor for now.
[2025-07-08] MEDS: fentaNYL 1,000 MCG/100 ML BAG 2.5 MCG IV (07:36)
--- NOTE | 2025-07-08 08:49 | PC.NURSE ---
Verbal order from Dr. Mitchell to wean sedation to off.
[2025-07-08] MEDS: levETIRAcetam 1,000 MG/100 ML PREMIX 400 MG IV (09:26)
[2025-07-08] MEDS: norepinephrine 4 MG/250 ML BAG 15 MG IV (11:00)
--- NOTE | 2025-07-08 11:12 | PC.NURSE ---
Room number at [facility], 4325- bed 1. Report to [phone].
--- NOTE | 2025-07-08 11:41 | P.TS_ITS ---
Transfer Summary Providers Date of Admission: 07/05/25 23:47 Date of Discharge/Transfer: 07/08/25 Attending Provider at Admission: Adrianna Huddleston MD Attending Provider at Transfer: Timbo Mitchell DO Primary Care Provider: TONI Fritz Transfer Plans: Anticipated date of transfer: 07/08/25 . Receiving Facility: [facility] . Receiving Provider: Fuel Tank Sealer And Tester. I apologize I did not write down his name. . Diagnoses at Discharge Discharge Diagnosis 1. Acute ischemic VBA brainstem stroke: 2. Obtundation: 3. Patient tolerating mechanical ventilation: 4. Hypotension: 5. Septic shock: 6. Recent urinary tract infection: 7. Thrombocytopenia: 8. Hypophosphatemia: 9. Hypokalemia: Reason for Visit Reason for Visit ams Brief History: 65-year-old female with no significant past medical history except for recent unintentional weight loss, chronic abdominal pain in which workup has been negative, smoker, hypertension, hyperlipidemia and chronic back pain with rods and her spine. She presented to the ER after feeling dizzy throughout the day and low blood pressure. The family found her unresponsive around 7 PM. Per their report she presented approximately 4-1/2 hours after altered mental status. She was given TNK. Her CTA was negative; did not show a posterior circulation thrombosis. She was hypotensive and required pressors. She was NEVER hypoxic. Due to obtunded state she was placed on mechanical ventilation. Hospital Course Hospital Course Patient was placed on the ICU on mechanical ventilation and is continue the [facility] ophed. Her NIH was over 30. She did respond to pain early on. There were times she was breathing over the ventilator and other times she could not draw enough volume. Over the course of the next 2 days patient had a fluctuating neurostatus. And there were times that she displayed rhythmic movements of upper truncal area and of the right arm. She was placed on Keppra for the possibility of seizures. Yesterday; the patient showed signs of neurologic improvement. I encouraged family to transfer to stroke center with / neuro availability as well as the ability to get an MRI on the ventilator. Family concern is that the patient would not like to live like this. Patient has orders of no escalation of care and a DNR status due to these previous conversations and the sons report that patient was experiencing severe pain prior to this. Today, her eyes are open; she is tracking, following commands and withdrawing from pain in her extremities. She is breathing over the ventilator. I again strongly recommended transfer Patient was diagnosed with a UTI 07/02/2025. She has been placed on empiric antibiotics to cover. She has a yeast in her endotracheal tube aspirate Also please note patient's platelets are now 25. I spoke with our inpatient pharmacist. The only medication we find that could be culprit is the Keppra. He recommended Vimpat as other antiseizure medications can also cause thrombocytopenia. She also has microcytic anemia. She has not required transfusion. She had hypokalemia this morning and this was replaced I spoke with single line referral and an wire brush maker who accepted her in transfer for workup of possible brainstem stroke. They will be able to obtain an MRI and have neurologist consult and perform serial exams with the goal being a diagnosis and prognosis for the family to make further decisions. Physical Exam Narrative: Patient off sedation Neurologic: Patient is awake, responds to name calling. She is tracking visually and auditory. She is now responding to pain in the extremities. She appears to follow commands. She is now shaking her head yes and no. She is tolerating MMV. NIH: 32 Heart is regular distant no loud murmurs Lungs clear to auscultation anteriorly and laterally without wheezes rales rhonchi Abdomen soft nontender not distended positive bowel sounds Extremities no clubbing cyanosis or edema; bottom of feet with thick dry skin left foot with dirt stains Urinary Catheter Management: Zimmerman: Cath Placed During This Visit: yes Reason for Continuing Indwelling Catheter: Accurate Measurement of Urinary Output in Critically Ill Patients Urinary Catheter Date of Insertion: 07/05/25 Urinary Catheter Time of Insertion: 21:03 TS Data Studies Completed and Pending Pending at discharge Category Date Time Status Basic Metabolic Panel AM LABS Lab 07/09/25 04:00 Ordered Basic Metabolic Panel AM LABS Lab 07/10/25 04:00 Ordered Blood Culture Stat Lab 07/05/25 21:00 Results Complete Blood Count w/Auto AM LABS Lab 07/09/25 04:00 Ordered Complete Blood Count w/Auto AM LABS Lab 07/10/25 04:00 Ordered Sputum Culture and Gram Stain Stat Lab 07/07/25 08:25 Results Vitamin B1 (Thiamine),Blood Routine Lab 07/06/25 20:03 Received Completed Studies During Hospitalization Category Date Time Status CT Angio Chest + Abdomen Pelvis w/ contrast; 07268 + Cat Scan 07/05/25 21:[address] head wo con* 02209 Routine Cat Scan 07/07/25 12:[address] head wo con* 50146 Stat Cat Scan 07/05/25 20:[address] head wo con* 79531 Stat Cat Scan 07/06/25 01:36 Completed CTA head neck [CT angio headneck* 55650/77156] Stat Cat Scan 07/05/25 22:17 Completed XR chest 1V portable [id number] Stat Exams 07/05/25 20:57 Completed XR chest 1V portable [id number] Stat Exams 07/06/25 01:35 Completed XR chest 1V portable [id number] Stat Exams 07/06/25 11:23 Completed XR chest 1V portable [id number] Stat Exams 07/08/25 01:28 Completed Laboratory Last Values WBC 8.29 10^3/uL (3.29-11.43) 07/08/25 03:45 RBC 2.94 10^6/uL (3.85-5.65) L 07/08/25 03:45 Hgb 9.80 g/dL (11.27-16.99) L 07/08/25 03:45 Hct 29.9 % (36-47) L 07/08/25 03:45 MCV 101.7 fl (85-98) H 07/08/25 03:45 MCH 33.3 pg (27-33) H 07/08/25 03:45 MCHC 32.8 g/dL (30-55) 07/08/25 03:45 RDW 15.5 % (12.1-15.1) H 07/08/25 03:45 Plt Count 25 10^3/cmm (157-399) L* D 07/08/25 03:45 MPV Not Reportable 07/08/25 03:45 Neut % (Auto) 80.6 % 07/08/25 03:45 Lymph % (Auto) 8.6 % 07/08/25 03:45 [place] % (Auto) 6.4 % 07/08/25 03:45 Eos % (Auto) 3.5 % 07/08/25 03:45 Baso % (Auto) 0.2 % 07/08/25 03:45 Neut # (Auto) 6.68 10^3/uL (1.8-7.7) 07/08/25 03:45 Lymph # (Auto) 0.7 10^3/uL (0.8-4.8) L 07/08/25 03:45 [place] # (Auto) 0.5 10^3/uL (0.2-0.9) 07/08/25 03:45 Eos # (Auto) 0.3 10^3/uL (0.0-0.8) 07/08/25 03:45 Baso # (Auto) 0.0 10^3/uL (0.0-0.1) 07/08/25 03:45 Nucleated RBC % (auto) 0 % 07/08/25 03:45 Nucleated RBCs # 0.0 /100WBC 07/08/25 03:45 PT 13.60 SECONDS (12.1-14.9) 07/05/25 21:00 INR 0.97 (0.8-1.2) 07/05/25 21:00 Specimen Type Arterial 07/07/25 03:30 Sample Site Radial, right 07/07/25 03:30 ABG pH 7.47 (7.35-7.45) H 07/07/25 03:30 ABG pCO2 28.9 mmHg (35-45) L 07/07/25 03:30 ABG pO2 57.6 mmHg (80.0-100.0) L 07/07/25 03:30 ABG PO2/FiO2 Ratio 192 07/07/25 03:30 ABG HCO3 21.1 mmol/L (22-26) L 07/07/25 03:30 ABG O2 Saturation 93.0 07/07/25 03:30 ABG Base Excess -1.8 mmol/L (-2.0-2.0) 07/07/25 03:30 Yuriy Test Pos 07/07/25 03:30 A-a O2 Gradient 15.6 mmHg (5-10) H 07/07/25 03:30 Hematocrit 32.1 % (37-47) L 07/07/25 03:30 Hgb O2 Saturation 90.5 % (95-100) L 07/07/25 03:30 Carboxyhemoglobin 1.4 %THgb (0.4-20.1) 07/07/25 03:30 Methemoglobin 1.2 % (0.4-1.5) 07/07/25 03:30 Total Hemoglobin 10.5 g/dL (12-16) L 07/07/25 03:30 Sodium 142.0 mmol/L (131-143) 07/07/25 03:30 Potassium 2.6 mmol/L (3.5-5.0) L 07/07/25 03:30 Glucose 127.0 mg/dL (70-115) H 07/07/25 03:30 Ionized Calcium 1.1 mmol/L (1.1-1.4) 07/07/25 03:30 O2 Delivery Device Vent 07/07/25 03:30 O2 Liters/Min 2.0 % 07/05/25 22:47 FiO2 30.0 % 07/07/25 03:30 Tidal Volume 0.45 07/07/25 03:30 PEEP 8.0 cmH20 07/07/25 03:30 Sports Medicine Physician ID Bd 07/07/25 03:30 Sodium 139 mmol/L (136-145) 07/08/25 03:45 Potassium 3.6 mmol/L (3.5-5.1) 07/08/25 03:45 Chloride 109 mmol/L (98-107) H 07/08/25 03:45 Carbon Dioxide 21 mmol/L (22-29) L 07/08/25 03:45 Anion Gap 12.6 (5-19) 07/08/25 03:45 BUN 17 mg/dL (8-23) 07/08/25 03:45 Creatinine 1.0 mg/dL (0.5-0.9) H 07/08/25 03:45 GFR Calculation 55.8 mL/min (90-130) L 07/08/25 03:45 Glucose 84 mg/dL (65-115) 07/08/25 03:45 POC Glucose 147 mg/dL (70-110) H 07/06/25 22:15 Calculated Osmolality 289 mOsm/kg (285-295) 07/08/25 03:45 Lactic Acid 2.8 mmol/L (0.5-2.2) H 07/05/25 21:00 Lactic Acid (Sepsis) 0.4 mmol/L (0.5-2.2) L 07/05/25 23:02 Calcium 7.5 mg/dL (8.5-10.5) L 07/08/25 03:45 Phosphorus 2.0 mg/dL (2.5-4.5) L 07/07/25 21:24 Magnesium 1.6 mg/dL (1.7-2.3) L 07/07/25 21:24 Total Bilirubin 0.8 mg/dL (0.15-1.2) 07/07/25 21:24 AST 18 U/L (0-32) 07/07/25 21:24 ALT 9 U/L (0-33) 07/07/25 21:24 Alkaline Phosphatase 30 U/L (35-105) L 07/07/25 21:24 Troponin T Baseline 33 ng/L (0-10) H 07/05/25 21:00 Troponin T 120 Minute 29.36 ng/L (0-10) H 07/05/25 23:02 Delta Troponin T -3.64 ABS# (0-10) L 07/05/25 23:02 Troponin T Hi Sens 6Hr 44.59 ng/L (0-10) H 07/06/25 02:40 Troponin T Hi Sens 6Hr Delta 11.59 ng/L (0-12) 07/06/25 02:40 Total Protein 4.9 g/dL (6.6-8.7) L 07/07/25 21:24 Albumin 2.9 g/dL (3.5-5.2) L 07/07/25 21:24 Globulin 2.0 g/dL (1.3-4.6) 07/07/25 21:24 Vitamin B12 429 pg/mL (232-1245) 07/06/25 02:40 TSH 1.20 uIU/mL (0.27-4.20) 07/05/25 21:00 Urine Color [place] (Yellow) A 07/05/25 21:17 Urine Appearance Clear (CLEAR) 07/05/25 21:17 Urine pH 5.5 (5-7) 07/05/25 21:17 Ur Specific [place] 1.021 (1.005-1.030) 07/05/25 21:17 Urine Protein 2+ (Negative) A 07/05/25 21:17 Urine Glucose (UA) Negative (Normal) 07/05/25 21:17 Urine Ketones Negative (Negative) 07/05/25 21:17 Urine Blood Trace (Negative) A 07/05/25 21:17 Urine Nitrate Negative (Negative) 07/05/25 21:17 Urine Bilirubin Negative (Negative) 07/05/25 21:17 Urine Urobilinogen 1.0 mg/dL (Negative) 07/05/25 21:17 Ur Leukocyte Esterase Negative (Negative) 07/05/25 21:17 Urine RBC 6-10 /hpf (0-2) 07/05/25 21:17 Urine WBC 0-5 /hpf (0-5) 07/05/25 21:17 Ur Squamous Epith Cells 0-5 /hpf (0-5) 07/05/25 21:17 Amorphous Sediment Not Reportable 07/05/25 21:17 Urine Bacteria None seen /hpf (NONE) 07/05/25 21:17 Hyaline Casts 5.77 /lpf 07/05/25 21:17 Radiology Impressions Chest/Abdomen/Pelvis CT 07/05/25 21:50 IMPRESSION: 1. No pulmonary embolism. 2. No acute infiltrates. IMPRESSION: No acute intra-abdominal process. COMMENTS: Consistent with the [employer]'s Incidental Findings Committee white paper (J Am Jessie Radiol 2018): Any incidental renal lesion less than 1 cm or classified as too small to characterize, or any incidental cystic renal lesion characterized as simple-appearing, is likely benign. No follow-up imaging is recommended for these lesions per consensus recommendations based on imaging criteria. Head/Neck CTA 07/05/25 22:17 IMPRESSION: No evidence of intracranial large vessel occlusion or aneurysm. IMPRESSION: There is no evidence of significant stenosis or occlusion in the carotid or vertebral arteries in the neck. REFERENCES: NASCET CRITERIA. The degree of stenosis in the cervical segment of the internal carotid artery is based on NASCET criteria. Normal is no stenosis. Mild is less than 50% stenosis. Moderate is 50-69% stenosis. Severe is 70% to 99% stenosis. Total occlusion is no detectable patent lumen. ADDENDUM: 07/05/25 1989 Addendum: THIS REPORT CONTAINS FINDINGS THAT MAY BE CRITICAL TO PATIENT CARE. The findings were verbally communicated via telephone conference with DONNY, KORBY at 11:32 PM CDT on 07/05/2025. The findings were acknowledged and understood. Head CT 07/07/25 12:03 IMPRESSION: 1. No evidence of intracranial hemorrhage or mass effect. 2. No acute intracranial findings. Chest X-Ray 07/08/25 01:28 IMPRESSION: No evidence of acute intrathoracic abnormality. Recent Clincial Data Last Vital Signs Temp 99.0 F 07/08/25 10:00 Pulse 65 07/08/25 10:00 Resp 8 L 07/08/25 11:00 BP 170/90 07/08/25 10:00 Pulse Ox 100 07/08/25 11:00 O2 Del Method Mechanical Ventilation 07/08/25 08:00 O2 Flow Rate 2 07/05/25 22:02 FiO2 30 07/08/25 11:00 Vital Signs Temp Pulse Resp BP Pulse Ox O2 Del Method FiO2 07/08/25 11:00 8 L 100 30 07/08/25 10:00 99.0 F 65 170/90 100 07/08/25 09:30 67 160/87 100 07/08/25 09:04 10 L 100 30 07/08/25 09:00 71 147/80 100 07/08/25 08:32 30 07/08/25 08:30 68 145/85 100 07/08/25 08:00 70 132/75 100 Mechanical Ventilation 07/08/25 07:51 14 100 30 07/08/25 07:30 99.0 F 66 111/65 07/08/25 07:00 66 99/62 100 Mechanical Ventilation 07/08/25 06:30 67 99/59 07/08/25 06:17 73 07/08/25 06:00 99.1 F 77 107/65 100 07/08/25 05:30 70 86/54 99 07/08/25 05:00 70 98/60 07/08/25 04:30 99.5 F 90 130/75 07/08/25 04:00 16 95 30 07/08/25 04:00 102/60 100 07/08/25 03:30 76 103/60 100 07/08/25 03:00 79 105/62 07/08/25 02:30 83 118/69 07/08/25 02:00 100.9 F H 87 134/83 07/08/25 01:30 103 H 158/93 99 07/08/25 01:00 108 H 181/92 98 07/08/25 00:30 91 174/95 96 07/08/25 00:00 99.2 F 76 177/104 100 07/07/25 23:50 17 98 30 Intake & Output/Weight 07/06/25 07/07/25 07/08/25 07/09/25 06:59 06:59 06:59 06:59 Intake Total 2046.051 / 2046.051 2635.029 / 2635.029 3883.602 / 3883.602 235.052 / 235.052 Output Total 900 / 900 875 / 875 2475 / 2475 Balance 1146.051 / 4493.288 5034.029 / 5250.832 0191.602 / 1408.602 235.052 / 235.052 Weight 24.313 kg 24.721 kg 56 kg Vitals Last Vital Signs Temp 99.0 F 07/08/25 10:00 Pulse 65 07/08/25 10:00 Resp 8 L 07/08/25 11:00 BP 170/90 07/08/25 10:00 Pulse Ox 100 07/08/25 11:00 O2 Del Method Mechanical Ventilation 07/08/25 08:00 O2 Flow Rate 2 07/05/25 22:02 FiO2 30 07/08/25 11:00 TS Medications Medications Chlorhexidine Gluconate (Chlorhexidine Gluconate 4% Btl 118 Ml) 1 applic TOPICAL DAILY JOSE ALFREDO Last Admin: 07/08/25 03:57 Dose: 1 applic Norepinephrine Bitartrate (Levophed) 4 mg in 250 mls @ 0 mls/hr IV .Q0M JOSE ALFREDO; Protocol Last Admin: 07/08/25 11:00 Dose: 4 mcg/min, 15 mls/hr Dextrose/Sodium Chloride (Dextrose 5%-Sod Chloride 0.9%) 1,000 mls @ 100 mls/hr IV .Q10H JOSE ALFREDO Last Admin: 07/08/25 05:08 Dose: 100 mls/hr Propofol (Diprivan) 1,000 mg in 100 mls @ 0 mls/hr IV .Q0M JOSE ALFREDO; Protocol Last Titration: 07/08/25 08:51 Dose: 0 mcg/kg/min, 0 mls/hr Piperacillin Sod/Tazobactam (Sod 3.375 gm/ Sodium Chloride) 50 mls @ 12.5 mls/hr IV Q8H [facility]; Protocol Last Infusion: 07/08/25 09:17 Dose: Infused Fentanyl (Sublimaze) 1,000 mcg in 100 mls @ 0 mls/hr IV .Q0M [facility]; Protocol Last Titration: 07/08/25 08:51 Dose: 0 mcg/hr, 0 mls/hr Dexmedetomidine/Sodium Chloride (Precedex) 400 mcg in 100 mls @ 0 mls/hr IV .Q0 M [facility]; Protocol Last Titration: 07/07/25 09:45 Dose: 0 mcg/kg/hr, 0 mls/hr Lacosamide 100 mg/ Sodium (Chloride) 60 mls @ 120 mls/hr IV Q12H JOSE ALFREDO Morphine Sulfate (Morphine 4 Mg/Ml Sdv 1 Ml) 2 mg IVP Q4H PRN PRN Reason: SEVERE PAIN Naloxone HCl (Naloxone 0.4 Mg/Ml Sdv) 0.1 mg IVP Q2M PRN PRN Reason: OPIATERV Ondansetron HCl (Ondansetron 2 Mg/Ml Sdv 2 Ml) 4 mg IVP Q4H PRN PRN Reason: vomiting, or N/V if npo Last Admin: 07/08/25 00:52 Dose: 4 mg Pantoprazole Sodium (Pantoprazole 40 Mg Sdv) 40 mg IVP Q24H [facility] Last Admin: 07/08/25 00:36 Dose: 40 mg Discontinued Medications Chlorhexidine Gluconate (Chlorhexidine Gluconate 4% Btl 118 Ml) 1 applic TOPICAL DAILY [facility] Diphenhydramine HCl (Diphenhydramine 50 Mg/Ml Sdv 1ml) 50 mg IVP ONCE ONE Stop: 07/05/25 22:10 Last Admin: 07/05/25 22:44 Dose: 50 mg Etomidate (Etomidate 2 Mg/Ml Inj Sdv 10 Ml) 20 mg IVP NOW ONE Stop: 07/06/25 01:31 Last Admin: 07/06/25 01:31 Dose: 20 mg Hydralazine HCl (Hydralazine 20 Mg/Ml Inj 1 Ml) 50 mg IVP ONCE ONE Stop: 07/07/25 22:10 Last Admin: 07/07/25 22:27 Dose: Not Given Hydralazine HCl (Hydralazine 50 Mg Tablet) 50 mg PO ONCE ONE Stop: 07/07/25 22:27 Last Admin: 07/07/25 22:58 Dose: 50 mg Hydralazine HCl (Hydralazine 20 Mg/Ml Inj 1 Ml) 20 mg IVP ONCE ONE Stop: 07/08/25 00:05 Last Admin: 07/08/25 00:09 Dose: 20 mg Sodium Chloride (Sodium Chloride 0.9%) 1,000 mls @ 999 mls/hr IV .Q1H1M JOSE ALFREDO Stop: 07/05/25 23:00 Last Infusion: 07/05/25 23:15 Dose: Infused Vancomycin HCl 1,000 mg/ (Sodium Chloride) 250 mls @ 250 mls/hr IV ONCE ONE; Protocol Stop: 07/05/25 22:01 Last Infusion: 07/05/25 23:15 Dose: Infused Piperacillin Sod/Tazobactam (Sod 3.375 gm/ Sodium Chloride) 50 mls @ 100 mls/hr IV ONCE ONE; Protocol Stop: 07/05/25 21:31 Last Infusion: 07/05/25 21:50 Dose: Infused Etomidate (Amidate) Confirm Administered Dose 20 mls @ as directed .ROUTE .STK- MED ONE Stop: 07/06/25 01:28 Sodium Chloride (Sodium Chloride 0.9% (100 Ml)) Confirm Administered Dose 100 mls @ as directed .ROUTE .STK-MED ONE Stop: 07/06/25 01:29 Last Admin: 07/06/25 03:21 Dose: Not Given Propofol (Diprivan) Confirm Administered Dose 1,000 mg in 100 mls @ as directed .ROUTE .STK-MED ONE Stop: 07/06/25 01:33 Last Admin: 07/06/25 02:36 Dose: Not Given Propofol (Diprivan) 1,000 mg in 100 mls @ 0 mls/hr IV .Q0M JOSE ALFREDO; Protocol Thiamine HCl 500 mg/ Sodium (Chloride) 105 mls @ 210 mls/hr IV ONCE ONE Stop: 07/06/25 19:56 Last Infusion: 07/06/25 23:23 Dose: Infused Levetiracetam (Keppra) 500 mg in 100 mls @ 400 mls/hr IV ONCE ONE Stop: 07/06/25 19:47 Last Infusion: 07/06/25 23:23 Dose: Infused Lidocaine HCl 5 ml/ Potassium (Chloride) 105 mls @ 26.25 mls/hr IV ONCE ONE Stop: 07/07/25 07:35 Last Infusion: 07/07/25 20:56 Dose: Infused Levetiracetam (Keppra) 1,000 mg in 100 mls @ 400 mls/hr IV Q12H JOSE ALFREDO Last Infusion: 07/08/25 09:44 Dose: Infused Thiamine HCl 500 mg/ Sodium (Chloride) 105 mls @ 210 mls/hr IV ONCE ONE Stop: 07/07/25 10:14 Last Infusion: 07/07/25 20:56 Dose: Infused Lidocaine HCl 5 ml/ Potassium (Chloride) 105 mls @ 26.25 mls/hr IV ONCE ONE Stop: 07/07/25 13:44 Last Infusion: 07/07/25 20:56 Dose: Infused Acetaminophen (Acetaminophen) 1,000 mg in 100 mls @ 400 mls/hr IV ONCE ONE Stop: 07/08/25 01:59 Last Infusion: 07/08/25 02:18 Dose: Infused Lacosamide 200 mg/ Sodium (Chloride) 70 mls @ 120 mls/hr IV ONCE ONE Stop: 07/08/25 11:34 Iohexol (Iohexol 350 Mg/Ml 500 Ml Btl (Per Ml)) 0 ml IV ONCE ONE Stop: 07/05/25 22:26 Last Admin: 07/05/25 22:26 Dose: 150 ml Labetalol HCl (Labetalol 5 Mg/Ml Sdv 20ml) Confirm Administered Dose 100 mg .ROUTE .STK-MED ONE Stop: 07/06/25 01:30 Labetalol HCl (Labetalol 5 Mg/Ml Sdv 20ml) 10 mg IVP ONCE ONE Stop: 07/06/25 01:31 Last Admin: 07/06/25 01:31 Dose: 10 mg Methylprednisolone Sodium Succinate (Methylprednisolone Sod Succ 125 Mg/2 Ml Inj) 60 mg IVP ONCE ONE Stop: 07/05/25 22:10 Last Admin: 07/05/25 22:44 Dose: 60 mg Midodrine (Midodrine 5 Mg Tablet) 10 mg PO TID JOSE ALFREDO Last Admin: 07/07/25 21:41 Dose: Not Given Potassium Chloride (Potassium Chloride Oral Liq 20 Meq/15 Ml Udc) 40 meq PO ONCE ONE Stop: 07/07/25 03:37 Last Admin: 07/07/25 04:32 Dose: 40 meq Potassium Phosphate (Phosphorus 250 Mg Tablet) 500 mg PO ONCE ONE Stop: 07/07/25 03:39 Last Admin: 07/07/25 04:32 Dose: 500 mg Propofol (Propofol 10 Mg/Ml Sdv 20 Ml) Confirm Administered Dose 200 mg .ROUTE .STK-MED ONE Stop: 07/06/25 01:28 Last Admin: 07/06/25 03:20 Dose: Not Given Rocuronium [place] (Rocuronium 10 Mg/Ml Inj 5ml) Confirm Administered Dose 50 mg .ROUTE .STK-MED ONE Stop: 07/06/25 01:29 Last Admin: 07/06/25 03:02 Dose: Not Given Succinylcholine Chloride (Succinylcholine 20 Mg/Ml Sdv 10ml) Confirm Adminis tered Dose 400 mg .ROUTE .STK-MED ONE Stop: 07/06/25 01:29 Succinylcholine Chloride (Succinylcholine 20 Mg/Ml Sdv 10ml) 100 mg IVP NOW ONE Stop: 07/06/25 01:31 Last Admin: 07/06/25 01:32 Dose: 100 mg Tenecteplase (Tenecteplase 50mg Kit (Stroke)) 13 mg 0.25 mg/kg (13 mg) IVP ONCE ONE; Protocol Stop: 07/05/25 23:22 Last Admin: 07/05/25 23:25 Dose: 13 mg Allergies atorvastatin (From Lipitor) Allergy (Unknown, Verified 05/24/25 18:03) known ezetimibe (From Zetia) Allergy (Unknown, Verified 05/24/25 18:03) unknown rosuvastatin (From Crestor) Allergy (Unknown, Verified 05/24/25 18:03) unknown Clssoyv-XDD-FhC Reductase Inhibitor (Yjwexuf-Fak-Aoj Reductase Inhibitor) Allergy (Unknown, Verified 05/24/25 18:03) Unknown Sulfa (Sulfonamide Antibiotics) Allergy (Unknown, Verified 05/24/25 18:03) Unknown sumatriptan (From Imitrex) Allergy (Unknown, Verified 05/24/25 18:03) known IV contrast dye Allergy (Uncoded 05/24/25 18:03) ALGY-Anaphylaxis Home Medications potassium gluconate 595 mg (99 mg) tablet 595 mg PO TID@08,15,22 03/12/20 [History Confirmed 07/06/25] haipyzi-tikqecixlbwps-nkumceym 250 mg-250 mg-65 mg tablet (Excedrin Extra Strength) 1 tab PO Q6H PRN Pain 09/14/24 [History Confirmed 07/06/25] baclofen 10 mg tablet See Rx Instructions .Route .COMPLEX #360 tabs 12/19/24 [Rx Confirmed 07/06/25] carvedilol 6.25 mg tablet (Coreg) 6.25 mg PO Q12H #180 tabs 12/19/24 [Rx Confirmed 07/06/25] fenofibrate micronized 134 mg capsule 134 mg PO DAILY@15 #90 caps 12/19/24 [Rx Confirmed 07/06/25] gabapentin 800 mg tablet 800 mg PO TID #360 tabs 12/19/24 [Rx Confirmed 07/06/25] levothyroxine 50 mcg tablet 50 mcg PO DAILY@1500 #90 tabs 12/19/24 [Rx Confirmed 07/06/25] linaclotide 145 mcg capsule (Linzess) 145 mcg PO BEDTIME #90 caps 12/19/24 [Rx Confirmed 07/06/25] paroxetine HCl 30 mg tablet 30 mg PO DAILY #90 tabs 12/19/24 [Rx Confirmed 07/06/25] syringe with needle 3 mL 25 gauge x 1 (BD Luer-Rae Syringe) #5 ea 12/19/24 [Rx Confirmed 07/06/25] glycopyrrolate 1 mg tablet (Robinul) 1 mg PO TID 05/14/25 [History Confirmed 07/06/25] terconazole 0.4 % vaginal cream 1 appful vaginal .at bedtime #45 grams 06/27/25 [Rx Confirmed 07/06/25] cefdinir 300 mg capsule 300 mg PO BID 10 days #20 caps 07/02/25 [Rx Confirmed 07/06/25] ondansetron 4 mg disintegrating tablet 4 mg PO Q8H PRN nausea and vomiting 4 days #14 tabs 07/02/25 [Rx Confirmed 07/06/25] irbesartan 75 mg tablet 75 mg PO DAILY 07/06/25 [History Confirmed 07/06/25] omeprazole 20 mg capsule,delayed release 20 mg PO DAILY 07/06/25 [History Confirmed 07/06/25] Discharge Plan Discharge Patient Disposition: Xfer Short-Term Hosp Condition: Stable Prescriptions: No Action baclofen 10 mg tablet See Rx Instructions .ROUTE .COMPLEX Qty: 360 1RF Rx Instructions: Take 1 tablet by mouth in the morning, 1 tablet at 3pm, and 2 tablets at 10pm. carvedilol [Coreg] 6.25 mg tablet 6.25 mg PO Q12H Qty: 180 1RF Rx Instructions: must administer with a meal fenofibrate micronized 134 mg capsule 134 mg PO DAILY@15 Qty: 90 1RF gabapentin 800 mg tablet 800 mg PO TID Qty: 360 1RF levothyroxine 50 mcg tablet 50 mcg PO DAILY@1500 Qty: 90 1RF Linzess 145 mcg capsule 145 mcg PO BEDTIME Qty: 90 1RF paroxetine HCl 30 mg tablet 30 mg PO DAILY Qty: 90 1RF (DME) BD Luer-Rae Syringe 3 mL 25 gauge x 1 syringe See Rx Instructions .ROUTE .MEDSUPPLY Qty: 5 0RF Rx Instructions: monthly terconazole 0.4 % cream 1 appful vaginal .at bedtime Qty: 45 0RF potassium gluconate 595 mg (99 mg) Tablet 595 mg PO TID@08,15,22 [id number] [Excedrin Extra Strength] 250-250-65 mg Tablet 1 tab PO Q6H PRN (Reason: Pain) ondansetron 4 mg tablet,disintegrating 4 mg PO Q8H PRN (Reason: nausea and vomiting) 4 Days Qty: 14 0RF cefdinir 300 mg capsule 300 mg PO BID 10 Days Qty: 20 0RF omeprazole 20 mg Capsule,Delayed Release(Dr/Ec) 20 mg PO DAILY irbesartan 75 mg Tablet 75 mg PO DAILY glycopyrrolate [Robinul] 1 mg tablet 1 mg PO TID Discharge Order = DC NOW: Discharge Order (Routine); Ordered 07/08/25 Ordered By: Tibmo Mitchell Referrals: Hitesh Pal, [facility] [Primary Care Provider, Family Practice] Transfer Attestations Time Spent in Transfer Care: greater than 30 min Quality Metrics Clinical Quality Measures [ Cerebrovascular Accident { Contraindication to Antithrombotic: None; antithrombotic prescribed; Contraindication to Anticoagulation: None; anticoagulation prescribed; Contraindication to Statin: Other; Contraindication to antithrombotic day 2: None; Antithrombotic given day 2; Contraindication to tPA: None; TPA given; Onset of Symptoms Date: 07/05/25; Onset of Symptoms Time: 19:00; Symptom Onset Unknown: Yes; Reason stroke education not provided: Medical limitations; Rehab services assessed: Activities of daily living assessment, Rehabilitation assessment, Physical therapy, Occupational therapy, Speech therapy, Stroke rehabilitation, Other; Reason rehab assessment not done: Unresponsive}] Coding Level of Care Code Acute Code for [facility] Diagnoses 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
--- NOTE | 2025-07-08 12:40 | PC.NURSE ---
Transfer Progress: Report called to Jefferson Soliz RN. Dr. Mittal is accepting. [facility] has been called and will arrive in approximately one hour. Family is waiting room has been given updates.
--- NOTE | 2025-07-08 13:20 | PC.NURSE ---
Waste of remaining propofol with Mary, CCRN.
--- NOTE | 2025-07-08 14:19 | PC.NURSE ---
Transfer progress: Patient in route via [facility] at the time of this note. Patient belongings with family. Priti Arroyo called with ETA. Family at bedside for transfer, all are aware of patient room assignment and floor.
[2025-07-12 00:20] LABS: Vitamin B1 (Thiamine),Blood 59 nmol/L (78-185)
== END 2025-07-08 14:22 | disposition skilled nursing facility (03) | DRG 871 ==
LOC: ER 23:50 → ICU 07-06 00:07
PROVIDERS: Specialist; Admitting Provider Internal Medicine; Emergency Provider Emergency Medicine; PCP Nurse Practitioner; Visit Provider Internal Medicine
DX: A41.9 Sepsis, unspecified organism (principal); I63.9 Cerebral infarction, unspecified; R65.21 Severe sepsis with septic shock; I13.0 Hypertensive heart and chronic kidney disease with heart failure and stage 1 through stage 4 chronic kidney disease, or unspecified chronic kidney disease; E46 Unspecified protein-calorie malnutrition; Z68.1 Body mass index [BMI] 19.9 or less, adult; G93.1 Anoxic brain damage, not elsewhere classified; N39.0 Urinary tract infection, site not specified; R29.730 NIHSS score 30; Z87.440 Personal history of urinary (tract) infections; D69.6 Thrombocytopenia, unspecified; E83.39 Other disorders of phosphorus metabolism; E87.6 Hypokalemia; I50.9 Heart failure, unspecified; N18.9 Chronic kidney disease, unspecified; E78.5 Hyperlipidemia, unspecified; G89.29 Other chronic pain; M54.9 Dorsalgia, unspecified; D53.9 Nutritional anemia, unspecified; E86.0 Dehydration; L89.152 Pressure ulcer of sacral region, stage 2; F17.210 Nicotine dependence, cigarettes, uncomplicated; G62.9 Polyneuropathy, unspecified; E03.9 Hypothyroidism, unspecified; E78.2 Mixed hyperlipidemia; M79.7 Fibromyalgia; K21.9 Gastro-esophageal reflux disease without esophagitis; I25.10 Atherosclerotic heart disease of native coronary artery without angina pectoris; K59.01 Slow transit constipation; F41.1 Generalized anxiety disorder; J44.9 Chronic obstructive pulmonary disease, unspecified; Z66 Do not resuscitate; R56.9 Unspecified convulsions; Z79.82 Long term (current) use of aspirin; Z98.1 Arthrodesis status
CPT/HCPCS: 36415; 36416; 36592; 36600; 51702; 70450; 70496; 70498; 71045; 71275; 74022; 74176; 74177; 80048; 80051; 80053; 81001; 82330; 82607; 82805; 82962; 83605; 83690; 83735; 84100; 84145; 84425; 84443; 84484; 85025; 85610; 87040; 87070; 87086; 87106; 87205; 93005; 94002; 94003; 94799; 96365; 96366; 96367; 96374; 96375; 99285; 99291; A4570; C9254; J0131; J0330; J0360; J0696; J0780; J1200; J1953; J2405; J2470; J2543; J2704; J2919; J3010; J3101; J3373; J3411; J3480; J3490; J7030; J7042; J7050; J7120; J9999; Q0162

== ENCOUNTER 2025-08-09 16:57 | Emergency (ER) | payer MEDICARE, MEDICAID, SELFPAY ==
[2025-08-09] VITALS (8 sets, daily range): BP systolic 175–195; BP diastolic 105–118; PULSE 82–93; RESP 16; TEMP 36.8; O2SAT 92–95; BMI 15.9
--- OUTSIDE RECORDS SUMMARY | 2025-08-09 17:10 | XMS_ITS | Encounter Summary ---
Author Organization [facility] Address [address] [place] [address] Care Team Providers Care Evp Chief Exploration Officer Name Role Phone Non-Staff, Physician Primary Care Provider Unava ilable Encounter Details Date Type Department Care Team (Late st Contact Info) Description 02/22/2002 Outpatient Historical [facility] [address] [place] [phone] Martell Baugh MD NO ADDRESS ON FILE CERVICALGIA (Primary Dx) Social History Tobacco Use Types Packs/Day Years Used Date Smoking Tobacco: Never Assessed Comments Unknown Sex and Gender Information Value Date Recorded Sex Assigned at Not on file Legal Sex Female 7:06 AM RECORDS SECTION SUPERVISOR Gender Identity Not on file Sexual Orientation Not on file documented as of this encounter Plan of Treatment Not on file documented as of this encounter Visit Diagnoses Diagnosis Cervicalgia- Primary documented in this encounter Care Teams Evp Chief Exploration Officer Relationship Specialty Start Date End Date Non-Staff, Physician NO ADDRESS ON FILE PCP - General 04/15/12 documented as of this encounter
--- OUTSIDE RECORDS SUMMARY | 2025-08-09 17:10 | XMS_ITS | Encounter Summary ---
Author Organization [facility] Address [address] [place] [address] Care Team Providers Care Catastrophe Claims Supervisor Name Role Phone Non-Staff, Physician Primary Care Provider Unava ilable Encounter Details Date Type Department Care Team (Latest Contact Info) Description 11/19/2001 Outpatient Historical [facility] Luis Felipe Sanford MD [address] [place] [address] CERVICALGIA (Primary Dx); EDEMA Social History Tobacco Use Types Packs/Day Years Used Date Smoking Tobacco: Never Assessed Comments Unknown Sex and Gender Information Value Date Recorded Sex Assigned at Not on file Legal Sex Female 7:06 AM ENGINEER FISHING VESSEL Gender Identity Not on file Sexual Orientation Not on file documented as of this encounter Plan of Treatment Not on file documented as of this encounter Visit Diagnoses Diagnosis Cervicalgia- Primary Edema documented in this encounter Care Teams Catastrophe Claims Supervisor Relationship Specialty Start Date End Date Non-Staff, Physician NO ADDRESS ON FILE PCP - General 04/15/12 documented as of this encounter
--- OUTSIDE RECORDS SUMMARY | 2025-08-09 17:10 | XMS_ITS | Encounter Summary ---
Author Organization [facility] Address [address] Mcmahonn: Epic Prelude ADT [place] [address] Care Team Providers Care Biodiesel Operations Manager Name Role Phone Non-Staff, Physician Primary Care Provider Unava ilable Encounter Details Date Type Department Care Team (Late st Contact Info) Description 11/15/2001 Outpatient Historical Brice rPice MD [address] [place] [id number] Social History Tobacco Use Types Packs/Day Years Used Date Smoking Tobacco: Never Assessed Comments Unknown Sex and Gender Information Value Date Recorded Sex Assigned at Not on file Legal Sex Female 7:06 AM PASSENGER SERVICE AGENT Gender Identity Not on file Sexual Orientation Not on file documented as of this encounter Plan of Treatment Not on file documented as of this encounter Visit Diagnoses Not on filedocumented in this encounter Care Teams Biodiesel Operations Manager Relationship Specialty Start Date End Date Non-Staff, Physician NO ADDRESS ON FILE PCP - General 04/15/12 documented as of this encounter
--- OUTSIDE RECORDS SUMMARY | 2025-08-09 17:10 | XMS_ITS | Encounter Summary ---
Author Organization [facility] Address [address] [place] [address] Care Team Providers Care Vp Mobile Products Name Role Phone Non-Staff, Physician Primary Care Provider Unava ilable Encounter Details Date Type Department Care Team (Late st Contact Info) Description 05/03/2002 Outpatient Historical [facility] [address] [place] [phone] Martell Baugh MD NO ADDRESS ON FILE MYALGIA AND MYOSITIS NOS (Primary Dx) Social History Tobacco Use Types Packs/Day Years Used Date Smoking Tobacco: Never Assessed Comments Unknown Sex and Gender Information Value Date Recorded Sex Assigned at Not on file Legal Sex Female 7:06 AM NURSING INFORMATION SYSTEMS COORDINATOR Gender Identity Not on file Sexual Orientation Not on file documented as of this encounter Plan of Treatment Not on file documented as of this encounter Visit Diagnoses Diagnosis Myalgia and myositis, unspecified- Primary Mylagia and myositis, unspecified documented in this encounter Care Teams Vp Mobile Products Relationship Specialty Start Date End Date Non-Staff, Physician NO ADDRESS ON FILE PCP - General 04/15/12 documented as of this encounter
--- OUTSIDE RECORDS SUMMARY | 2025-08-09 17:10 | XMS_ITS | Encounter Summary ---
Author Organization [facility] Address [address] [place] [address] Care Team Providers Care Java Web Developer Name Role Phone Non-Staff, Physician Primary Care Provider Unava ilable Encounter Details Date Type Department Care Team (Latest Contact Info) Description 12/04/1998 Outpatient Historical [facility] Elias Chow Jr., MD [address] [place] [phone] Gynecologic examination (Primary Dx); Cystitis, unspecified Social History Tobacco Use Types Packs/Day Years Used Date Smoking Tobacco: Never Assessed Comments Unknown Sex and Gender Information Value Date Recorded Sex Assigned at Not on file Legal Sex Female 7:06 AM MUSIC CRITIC Gender Identity Not on file Sexual Orientation Not on file documented as of this encounter Plan of Treatment Not on file documented as of this encounter Visit Diagnoses Diagnosis Gynecologic examination- Primary Gynecological examination Cystitis, unspecified documented in this encounter Care Teams Java Web Developer Relationship Specialty Start Date End Date Non-Staff, Physician NO ADDRESS ON FILE PCP - General 04/15/12 documented as of this encounter
--- OUTSIDE RECORDS SUMMARY | 2025-08-09 17:10 | XMS_ITS | Encounter Summary ---
Author Organization [facility] Address [address] Attn: Epic Prelude ADT [place] [address] Care Team Providers Care Superintendent Car Construction Name Role Phone Non-Staff, Physician Primary Care [...] on file Legal Sex Female 7:06 AM HAIR SPRING CUTTER Gender Identity Not on file Sexual Orientation Not on file documented as of this encounter Plan of Treatment Not on file documented as of this encounter Visit Diagnoses Not on filedocumented in this encounter Care Teams Superintendent Car Construction Relationship Specialty Start Date End Date Non-Staff, Physician NO ADDRESS ON FILE PCP - General 04/15/12 documented as of this encounter
--- OUTSIDE RECORDS SUMMARY | 2025-08-09 17:10 | XMS_ITS | Clinical Summary ---
Author Organization [facility] Address [address] [place] [address] Phone Care Team Providers Care Sas Bi Developer Name Role Phone Non-Staff, Physician Primary [...] tablet Take 25 mcg by mouth daily screen cutter and trimmer. Active fentaNYL (DURAGESIC) 50 mcg/hr Transdermal patch [...] on file Legal Sex Female 7:06 AM COUNTY ASSESSOR Gender Identity Not on file Sexual Orientation Not on file Occupation Industry Job Start Date Job End Date Not on file Not on file Not on file Not on file Last Filed Vital Signs Vital Sign Reading Time Taken Comments Blood Pressure 140/82 11/17/2012 8:44 AM COUNTY ASSESSOR Pulse 74 11/17/2012 8:44 AM COUNTY ASSESSOR Temperature - - Respiratory Rate - - Oxygen Saturation - - Inhaled Oxygen Concentration - - Weight 66.2 kg (146 lb) 11/17/2012 8:44 AM COUNTY ASSESSOR Height 162.6 cm (5' 4 ) 11/17/2012 8:44 AM COUNTY ASSESSOR Body Mass Index 25.06 11/17/2012 8:44 AM COUNTY ASSESSOR Plan of Treatment Health Maintenance Due Date [...] 2036 [address] [place] [id number] MEDICARE PART A [place] B [place] Care Teams Sas Bi Developer Relationship Specialty Start Date End Date Non-Staff, Physician NO ADDRESS ON FILE PCP - General 04/15/12
--- OUTSIDE RECORDS SUMMARY | 2025-08-09 17:10 | XMS_ITS | Encounter Summary ---
Author Organization [facility] Address [address] [place] [address] Care Team Providers Care Account Supervisor Name Role Phone Non-Staff, Physician Primary Care Provider Unava ilable Encounter Details Date Type Department Care Team (Latest Contact Info) Description 08/12/2001 Outpatient Historical [facility] Cody Lofton MD [address] [place] [address] Headache(784.0) (Primary Dx); Cervicalgia Social History Tobacco Use Types Packs/Day Years Used Date Smoking Tobacco: Never Assessed Comments Unknown Sex and Gender Information Value Date Recorded Sex Assigned at Not on file Legal Sex Female 7:06 AM NURSE EXTERN Gender Identity Not on file Sexual Orientation Not on file documented as of this encounter Plan of Treatment Not on file documented as of this encounter Visit Diagnoses Diagnosis Headache(784.0)- Primary Headache Cervicalgia documented in this encounter Care Teams Account Supervisor Relationship Specialty Start Date End Date Non-Staff, Physician NO ADDRESS ON FILE PCP - General 04/15/12 documented as of this encounter
--- OUTSIDE RECORDS SUMMARY | 2025-08-09 17:10 | XMS_ITS | Encounter Summary ---
Author Organization [facility] Address [address] Attn: Epic Prelude ADT [place] [address] Care Team Providers Care Telegraph Service Rater Name Role Phone Non-Staff, Physician Primary Care [...] on file Legal Sex Female 7:06 AM KNIFE FINISHER Gender Identity Not on file Sexual Orientation Not on file documented as of this encounter Plan of Treatment Not on file documented as of this encounter Visit Diagnoses Not on filedocumented in this encounter Care Teams Telegraph Service Rater Relationship Specialty Start Date End Date Non-Staff, Physician NO ADDRESS ON FILE PCP - General 04/15/12 documented as of this encounter
--- OUTSIDE RECORDS SUMMARY | 2025-08-09 17:10 | XMS_ITS | Encounter Summary ---
Author Organization [facility] Address [address] [place] [address] Care Team Providers Care Wage And Hour Investigator Name Role Phone Non-Staff, Physician Primary Care Provider Unava ilable Encounter Details Date Type Department Care Team (Latest Contact Info) Description 03/18/2002 Outpatient Historical [facility] [address] [place] [phone] Juancarlos Maier MD NO ADDRESS ON FILE CERVICALGIA (Primary Dx) Social History Tobacco Use Types Packs/Day Years Used Date Smoking Tobacco: Never Assessed Comments Unknown Sex and Gender Information Value Date Recorded Sex Assigned at Not on file Legal Sex Female 7:06 AM HIDE BUYER Gender Identity Not on file Sexual Orientation Not on file documented as of this encounter Plan of Treatment Not on file documented as of this encounter Visit Diagnoses Diagnosis Cervicalgia- Primary documented in this encounter Care Teams Wage And Hour Investigator Relationship Specialty Start Date End Date Non-Staff, Physician NO ADDRESS ON FILE PCP - General 04/15/12 documented as of this encounter
--- OUTSIDE RECORDS SUMMARY | 2025-08-09 17:10 | XMS_ITS | Encounter Summary ---
Author Organization [facility] Address [address] [place] [address] Care Team Providers Care Enrollment Specialist Name Role Phone Non-Staff, Physician Primary Care Provider Unava ilable Encounter Details Date Type Department Care Team (Latest Contact Info) Description 08/19/2001 Outpatient Historical [facility] [address] [facility] [address] [place] [address] Ana Smith MD NO ADDRESS ON FILE Other screening mammogram (Primary Dx) Social History Tobacco Use Types Packs/Day Years Used Date Smoking Tobacco: Never Assessed Comments Unknown Sex and Gender Information Value Date Recorded Sex Assigned at Not on file Legal Sex Female 7:06 AM SENIOR BIOINFORMATICS SCIENTIST Gender Identity Not on file Sexual Orientation Not on file documented as of this encounter Plan of Treatment Not on file documented as of this encounter Visit Diagnoses Diagnosis Other screening mammogram- Primary documented in this encounter Care Teams Enrollment Specialist Relationship Specialty Start Date End Date Non-Staff, Physician NO ADDRESS ON FILE PCP - General 04/15/12 documented as of this encounter
--- OUTSIDE RECORDS SUMMARY | 2025-08-09 17:10 | XMS_ITS | Encounter Summary ---
Author Organization [facility] Address [address] Attn: Epic Prelude ADT [place] [address] Care Team Providers Care Grocery Clerk Stocking Name Role Phone Non-Staff, Physician Primary Care [...] on file Legal Sex Female 7:06 AM SIGNS AND DISPLAYS SALES REPRESENTATIVE Gender Identity Not on file Sexual Orientation Not on file documented as of this encounter Plan of Treatment Not on file documented as of this encounter Visit Diagnoses Not on filedocumented in this encounter Care Teams Grocery Clerk Stocking Relationship Specialty Start Date End Date Non-Staff, Physician NO ADDRESS ON FILE PCP - General 04/15/12 documented as of this encounter
--- OUTSIDE RECORDS SUMMARY | 2025-08-09 17:10 | XMS_ITS | Data Portability ---
Author Organization [facility] Elvai Humphrey, [facility] Address [address] [address] Assessment No assessment recorded. Plan of Treatment Reminders Order Date Submit Date Provider Last Modified By Organization Details Last Modified Time Details Appointments None record ed. Lab None record ed. Referral None record ed. Procedures None record ed. Surgeries None record ed. Imaging None record ed. Medication Orders None record ed. Patient TargetsNo targets recorded. Patient Instructions Encounter Date Encounter Id Patient Instructions Last Modified By Organization Details Last Modified Time 07/17/2025 [id number] Limited records. Planning for therapy at [facility] with goal of returning home. Labs on Thursday. [email or web address] Not available 07/17/2025 18:07:39 07/26/2025 [id number] Discussed poor kidney function and how certain medications affect it worse than others. Will stat 10 meq potassium daily. Start benadryl bid prn, and tramadol bid prn. Labs on Thursday. [email or web address] Not available 07/26/2025 14:59:49 Reason for Referral None Reported. Problems Name Problem SNOMED Code Status Onset Date Resolution Date Notes Provider Name and Address Organization Details Recorded Time Post-discharg e follow-up 778367014 [facility] Metabolic encephalopath y 89874731 [facility]24 [facility] Chronic obstructive pulmonary disease 95921538 Active [facility]24 [facility] 09/22[facility]202 5 18:07:02 Hypertensive heart failure 18918209 Active 2024 SERGO ALVAREZ [facility] 5 18:07:03 Fibromyalgia 356558162 [facility] 18:07:06 Hyperlipidemi a 61966679 Active 2024 [facility] 18:07:06 Problem Notes None recorded. Medical Equipment None Reported. Medications Name Sig Start Date Stop Date Status Note LastModified by Organization Details LastModified Time glycopyrrol ate 1 mg tablet TAKE 1 TABLET BY MOUTH THREE TIMES DAILY active Not Available Not Available No t Available carvedilol 6.25 mg tablet TAKE 1 TABLET BY MOUTH EVERY 12 HOURS WITH MEALS active Not Available Not Available No t Available fluconazole 150 mg tablet TAKE 1 TABLET BY MOUTH ONCE DAILY active Not Available Not Available No t Available hydrocodone 5 mg-acetamin ophen 325 mg tablet TAKE ONE TABLET BY MOUTH EVERY 6 HOURS NEEDED FOR PAIN active Not Available Not Available No t Available prednisone 20 mg tablet TAKE ONE TABLET BY MOUTH TWICE DAILY FOR 5 DAYS active Not Available Not Available No t Available metronidazo le 500 mg tablet TAKE 1 TABLET BY MOUTH TWICE DAILY FOR 7 DAYS 07/17 completed Not Available Not Available Not Available fenofibrate micronized 134 mg capsule TAKE 1 CAPSULE BY MOUTH ONCE DAILY AT 3PM active Not Available Not Available No t Available gabapentin 800 mg tablet TAKE 1 TABLET BY MOUTH THREE TIMES DAILY active Not Available Not Available No t Available meclizine 25 mg tablet TAKE 1 TABLET BY MOUTH EVERY DAY NEEDED FOR NAUSEA AND VOMITING active Not Available Not Available No t Available baclofen 10 mg tablet TAKE 1 TABLET BY MOUTH IN THE MORNING THEN TAKE 1 TABLET AT 3PM THEN TAKE 2 TAB AT 10PM active Not Available Not Available No t Available levothyroxi ne 50 mcg tablet TAKE 1 TABLET BY MOUTH ONCE DAILY AT 3PM active Not Available Not Available No t Available paroxetine 30 mg tablet TAKE 1 TABLET BY MOUTH ONCE DAILY active Not Available Not Available No t Available cyanocobala min (vit B-12) 1,000 mcg/mL injection solution INJECT 1 ML (CC) INTRAMUSC ULARLY ONCE EVERY MONTH active Not Available Not Available No t Available BD Luer-Rae Syringe 3 mL 25 gauge x 1 USE DIRECTED MONTHLY active Not Available Not Available No t Available omeprazole 20 mg capsule,del ayed release TAKE ONE TABLET BY 30 MINUTES BEFORE MORNING MEAL ONCE DAILY active Not Available Not Available No t Available irbesartan 75 mg tablet TAKE 1 TABLET BY MOUTH ONCE DAILY active Not Available Not Available No t Available ergocalcife rol (vitamin D2) 1,250 mcg (50,000 unit) capsule TAKE 1 CAPSULE EVERY 7 DAYS ON THURSDAY active Not Available Not Available No t Available irbesartan 150 mg tablet TAKE 1 TABLET BY MOUTH ONCE DAILY active Not Available Not Available No t Available cefuroxime axetil 500 mg tablet TAKE 1 TABLET BY MOUTH TWICE DAILY 07/17 completed Not Available Not Available Not Available levofloxaci n 750 mg tablet TAKE ONE TABLET BY MOUTH DAILY FOR 5 DAYS 07/17 completed Not Available Not Available Not Available albuterol sulfate HFA 90 mcg/actuati on aerosol inhaler INHALE TWO PUFFS EVERY 6 HOURS NEEDED FOR SHORTNESS OF BREATH or wheezing active Not Available Not Available No t Available ondansetron 4 mg disintegrat ing tablet DISSOLVE 1 TABLET IN MOUTH EVERY 8 HOURS NEEDED FOR NAUSEA AND VOMITING FOR 4 DAYS active Not Available Not Available No t Available cefdinir 300 mg capsule take 1 capsule BY MOUTH TWICE DAILY for 10 days 07/17 completed Not Available Not Available Not Available fluticasone propionate 50 mcg/actuati on nasal spray,suspe nsion USE 2 SPRAY(S) IN EACH NOSTRIL ONCE DAILY active Not Available Not Available No t Available metoclopram vinay 10 mg tablet TAKE 1 TABLET BY MOUTH BEFORE MEAL(S) A ONE TIME DOSE active Not Available Not Available No t Available amoxicillin 875 mg-potassiu m clavulanate 125 mg tablet TAKE 1 TABLET BY MOUTH TWICE DAILY 07/17 completed Not Available Not Available Not Available oxycodone 5 mg tablet TAKE ONE TABLET BY MOUTH EVERY 4 HOURS NEEDED FOR PAIN for SEVEN DAYS active Not Available Not Available No t Available azithromyci n 500 mg tablet TAKE 1 TABLET BY MOUTH EVERY DAY for 5 days 07/17 completed Not Available Not Available Not Available peg 3350-electr olytes 236 gram-22.74 gram-6.74 gram-5.86 gram solution USE DIRECTED active Not Available Not Available No t Available Linzess 145 mcg capsule TAKE 1 CAPSULE BY MOUTH ONCE DAILY AT BEDTIME active Not Available Not Available No t Available Vitals Date Recorded Body weight Heart rate Respiratory rate Body temperature Oxygen saturation Oxygen saturation in Arterial blood by Pulse oximetry Systolic And Diastolic Provider Name and Address Organization Details Last Updated DateTime 5 40437.5 3 g 86 /min 18 /min 97.6 [degF] 91 % 91 % 132/90 mm[Hg] [facility] 5 18:04:41 Date Recorded Body weight Heart rate Respiratory rate Body temperature Oxygen saturation Oxygen saturation in Arterial blood by Pulse oximetry Systolic And Diastolic Provider Name and Address Organization Details Last Updated DateTime 5 85218.7 9 g 72 /min 18 /min 96.4 [degF] 99 % 99 % 154/98 mm[Hg] [facility] 5 14:55:32 Social History None recorded. Functional Status None recorded. Mental Status None recorded. Family History Nothing Reported. Medical History No medical history recorded. Gynecological HistoryNo gynecological history recorded. Obstetrics History GPAL:G 0 P 0 0 0 0 Immunizations Vaccine Type Date Status Note Provider Nam e and Address Organization Details Recorded Time pneumococcal polysaccharide PPV23 4 completed Not Available [facility] 07/26/2025 11:58:53 Past Encounters Encounter ID Performer Location Encounter Start Date Encounter Closed Date Diagnosis/Indication Diagnosis SNOMED-CT Code Diagnosis ICD10 Code Diagnosis IMO Codes Diagnosis Note [id number] Babak Duarte DO [facility] ([facility]) [address] [place] [address] 07/17/2025 15:43:50 07/19/2025 11:23:12 Post-discharge follow-up 940562665 Z09 362713 Metabolic encephalopathy 73524439 G93.41 806761 Chronic ob structive pulmonary disease 68231177 J44.9 138660712 Hypertensi ve heart failure 40806996 I11.0 639192 Fibromyalgia 591658772 M 79.7 75043 Hyperlipidemia 40598499 E78.5 [id number] Babak Duarte [facility] ([facility]) [address] [place] [address] 07/26/2025 11:58:37 07/27/2025 14:43:01 Hypertensive heart failure 85533074 I11.0 807680 Chronic ob structive pulmonary disease 31761847 J44.9 464042116 Health Concerns Section Related Observation LastModified by Organization Detai ls LastModified Time None Recorded Concern Status LastModified by Organization Details LastModified Time None Recorded Advance Directives Directive None Recorded Payers Insurance Date Sequence Insurance Name Policy Number Policy Saba Covered Member ID Saba Member ID Guarantor Name 07/26/2025 [place] [facility] Rosenda Cardonastarford [id number] Rosenda [facility] 07/26/2025 2 [place] Rosenda Cardonastarford [id number] Rosenda [facility] 07/17/2025 1 *SELF PAY* [facility] 07/26/2025 1 [employer] (MEDICARE REPLACEMENT/ ADVANTAGE - PPO) Rosenda Back [facility] [id number] Rosenda [facility] Notes Date Note Type Note Provider Name and Address Organization Details Recorded Time 07/17/2025 text/html COPDReported by PatientHPI:For duration, patient reportshas noted for years. For severity, patient reportssevere.ROS as noted in the HPI new admit to snf after hospital stay. Babak Duarte DO [address] [place] [address], [id number], [facility] 07/18/2025 09:00:19 07/26/2025 text/html COPDReported by PatientHPI:For duration, patient reportshas noted for years. For severity, patient reportssevere.ROS as noted in the HPI discuss labs and sinus medication. Babak Duarte DO [address] [place] [address], [phone], [facility] 07/26/2025 15:04:12 OBGyn Episode No OBEpisode recorded.
--- OUTSIDE RECORDS SUMMARY | 2025-08-09 17:10 | XMS_ITS | Encounter Summary ---
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
--- OUTSIDE RECORDS SUMMARY | 2025-08-09 17:10 | XMS_ITS | Encounter Summary ---
Author Organization [facility] Address [address] [place] [address] Care Team Providers Care Beauty Therapist Name Role Phone Non-Staff, Physician Primary Care Provider Unava ilable Encounter Details Date Type Department Care Team (Late st Contact Info) Description 02/22/2002 [facility] [address] [place] [phone] Social History Tobacco Use Types Packs/Day Years Used Date Smoking Tobacco: Never Assessed Comments Unknown Sex and Gender Information Value Date Recorded Sex Assigned at Not on file Legal Sex Female 7:06 AM 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
--- OUTSIDE RECORDS SUMMARY | 2025-08-09 17:11 | XMS_ITS | Encounter Summary ---
Author Organization [facility] Address [address] [place] [address] Care Team Providers Care Front Loader Residential Driver Name Role Phone Non-Staff, Physician Primary Care Provider Unava ilable Encounter Details Date Type Department Care Team (Latest Contact Info) Description 09/13/2002 Outpatient Historical [facility] [address] [facility] [address] [place] [address] Franklin Welsh MD NO ADDRESS ON FILE SCREENING MAMM-MAILG NEOPL-OTHER (Primary Dx) Social History Tobacco Use Types Packs/Day Years Used Date Smoking Tobacco: Never Assessed Comments Unknown Sex and Gender Information Value Date Recorded Sex Assigned at Not on file Legal Sex Female 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
--- OUTSIDE RECORDS SUMMARY | 2025-08-09 17:11 | XMS_ITS | Encounter Summary ---
Author Organization [facility] Address [address] [place] [address] Care Team Providers Care Lead Burner Name Role Phone Non-Staff, Physician Primary Care Provider Unava ilable Encounter Details Date Type Department Care Team (Late st Contact Info) Description 06/13/2002 Outpatient Historical [facility] [address] [place] [address] Martell Baugh MD NO ADDRESS ON FILE MYALGIA AND MYOSITIS NOS (Primary Dx) Social History Tobacco Use Types Packs/Day Years Used Date Smoking Tobacco: Never Assessed Comments Unknown Sex and Gender Information Value Date Recorded Sex Assigned at Not on file 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
--- OUTSIDE RECORDS SUMMARY | 2025-08-09 17:11 | XMS_ITS | Encounter Summary ---
Author Organization [facility] Address [address] [place] [address] Care Team Providers Care Corporate Bond Trader Name Role Phone Non-Staff, Physician Primary Care Provider Unava ilable Encounter Details Date Type Department Care Team (Late st Contact Info) Description 08/08/2025 External Device Data [facility] ABSTRACTION Provider, Abstract NO ADDRESS ON FILE Social History Tobacco Use Types Packs/Day Years Used Date Smoking Tobacco: Every Day Cigarettes Smokeless Tobacco: Never Alcohol Use Standard Drinks/Week Comments No 0 (1 standard drink = 0.6 oz pur e alcohol) Feeling Safe Answer Date Recorded Are you in a relationship wi th someone who hurts you emotionally and/or physically? 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
--- OUTSIDE RECORDS SUMMARY | 2025-08-09 17:11 | XMS_ITS | Encounter Summary ---
Author Organization [facility] Address [address] [place] [address] Care Team Providers Care Laborer Wood Preserving Plant Name Role Phone Non-Staff, Physician Primary Care Provider Unava ilable Encounter Details Date Type Department Care Team (Late st Contact Info) Description 01/27/2012 Ancillary Orders [facility] 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
--- OUTSIDE RECORDS SUMMARY | 2025-08-09 17:11 | XMS_ITS | Encounter Summary ---
Author Organization [facility] Address [address] [place] [address] Care Team Providers Care Manager Nicu Name Role Phone Non-Staff, Physician Primary Care Provider Unava ilable Encounter Details Date Type Department Care Team (Latest Contact Info) Description 03/29/1998 Outpatient Historical [facility] Elias Chow Jr., MD [address] [place] [phone] Symptomatic menopausal or female climacteric states (Primary Dx) Social History Tobacco Use Types Packs/Day Years Used Date Smoking Tobacco: Never Assessed Comments Unknown Sex and Gender Information Value Date Recorded Sex Assigned at Not on file Legal Sex Female 7:06 AM COUGAR HUNTER Gender Identity Not on file Sexual Orientation Not on file documented as of this encounter Plan of Treatment Not on file documented as of this encounter Visit Diagnoses Diagnosis Symptomatic menopausal or female climacteric states- Primary documented in this encounter Care Teams Manager Nicu Relationship Specialty Start Date End Date Non-Staff, Physician NO ADDRESS ON FILE PCP - General 04/15/12 documented as of this encounter
--- OUTSIDE RECORDS SUMMARY | 2025-08-09 17:11 | XMS_ITS | Encounter Summary ---
Author Organization [facility] Address 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
--- OUTSIDE RECORDS SUMMARY | 2025-08-09 17:11 | XMS_ITS | Encounter Summary ---
Author Organization [facility] Address [address] [place] [address] Care Team Providers Care Portable Trackman Name Role Phone Non-Staff, Physician Primary Care Provider Unava ilable Encounter Details Date Type Department Care Team (Latest Contact Info) Description 09/13/2002 Outpatient [facility] [address] [place] [address] Elias Chow Jr., MD [address] [place] [address] SCREENING MAMM-MAILG NEOPL-OTHER (Primary Dx) Social History Tobacco Use Types Packs/Day Years Used Date Smoking Tobacco: Never Assessed Comments Unknown Sex and Gender Information Value Date Recorded Sex Assigned at Not on file Legal 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
--- OUTSIDE RECORDS SUMMARY | 2025-08-09 17:11 | XMS_ITS | Encounter Summary ---
Author Organization [facility] Address [address] 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
--- OUTSIDE RECORDS SUMMARY | 2025-08-09 17:11 | XMS_ITS | Encounter Summary ---
Author Organization [facility] Address 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
--- OUTSIDE RECORDS SUMMARY | 2025-08-09 17:11 | XMS_ITS | Encounter Summary ---
Author Organization [facility] Address 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
--- OUTSIDE RECORDS SUMMARY | 2025-08-09 17:11 | XMS_ITS | Encounter Summary ---
Author Organization [facility] Address [address] [place] [address] Care Team Providers Care Cafe Cook Name Role Phone Non-Staff, Physician Primary Care Provider Unava ilable Encounter Details Date Type Department Care Team (Late st Contact Info) Description 10/24/2008 Outpatient [facility] [address] [place] [address] Lelia Jacobo MD NO ADDRESS ON FILE Social History Tobacco Use Types Packs/Day Years Used Date Smoking Tobacco: Never Assessed Comments Unknown Sex and Gender Information Value Date Recorded Sex Assigned at Not on file Legal Sex Female 7:06 AM 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
--- OUTSIDE RECORDS SUMMARY | 2025-08-09 17:11 | XMS_ITS | Clinical Summary ---
Author Organization [facility] Address [address] Travis: Epic Prelude ADT [place]KS [address] Care Team Providers Care Chain Offbearer Name Role Phone Non-Staff, Physician Primary Care Provider Unava ilable Allergies Active Allergy Reactions Criticality Noted Date Comments Atorvastatin Unknown 07/08/2025 Iodine Anaphylaxis High 01/27/2012 Sulfa (Sulfonamide Antibiotics) Nausea and Vomiting Low 01/27/2012 Sumatriptan Succinate Other (See Comments) 12/2011 Pt felt like she was going to have a heart attack Medications baclofen (LIORESAL) 10 mg tablet Take 10 mg by mouth see administration instructions. 1 tablet in am, 1 tablet at 3pm, and 2tablets at 1000pm Active fenofibrate micronized (LOFIBRA) 134 mg Capsule Take 134 mg by mouth daily. Active gabapentin (NEURONTIN) 800 mg tablet Take 800 mg by mouth 3 times daily. Active levothyroxine 50 mcg tablet Take 50 mcg by mouth daily in the morning. Active linaCLOtide (Linzess) 145 mcg capsule Take 145 mcg by mouth daily at bedtime. Active ondansetron (ZOFRAN) 4 mg Tablet Take 4 mg by mouth every 8 hours as needed for Nausea/Emesis. Active PARoxetine HCl (PAXIL) 30 mg tablet Take 30 mg by mouth daily. Active carvediloL (COREG) 3.125 mg tablet Take 1 Tablet (3.125 mg) by mouth every 12 hours. 07/14/20 25 Active docusate sodium (COLACE) 100 mg capsule Take 1 Capsule (100 mg) by mouth 2 times daily. 07/14/20 25 Active pantoprazole (PROTONIX) 40 mg Tablet, Delayed Release (E.C.) Take 1 Tablet (40 mg) by mouth daily before breakfast. 07/15/20 Active Lidocaine 4 % Adhesive Patch, Medicated Apply to lower back. Apply only once for up to 12 hours within a 24 hour period. Patches may be cut into smaller sizes with scissors prior to the removal of the release liner. Clothing may be worn over the area of application. For more information use the [employer] link. 07/15/20 Active carvediloL (COREG) 6.25 mg tablet Take 6.25 mg by mouth 2 times daily with meals. 2024 Discontinued glycopyrrolat e (ROBINUL) 1 mg tablet Take 1 mg by mouth 3 times daily. 2024 Discontinued omeprazole (PriLOSEC) 20 mg Capsule, Delayed Release(E.C.) Take 20 mg by mouth daily. 2024 Discontinued cefdinir (OMNICEF) 300 mg capsule Take 300 mg by mouth every 12 hours. 2024 Discontinued Active Problems Problem Noted Date Diagnosed Date Acute gastritis with hemorrhage 07/14/2025 Hematemesis 07/12/2025 Abnormal weight loss 07/12/2025 UTI (urinary tract infection) 07/10/2025 Thrombocytopenia 07/09/2025 Acute metabolic encephalopathy 07/08/2025 Acute hypoxic respiratory failure 07/08/2025 Hypothyroidism 07/08/2025 Multiple thyroid nodules 09/08/2012 Bleeding disorder 06/17/2011 CHRONIC PAIN SYNDROME 04/01/2011 Tobacco use disorder 04/01/2011 Scoliosis 04/01/2011 Fibromyalgia 04/01/2011 LBP radiating to both legs 04/01/2011 Encounters Date Type Department Care Team Description 08/08/2025 External Device Data [facility] Provider, Abstract 08/08/2025 External Device Data [facility] Provider, Abstract 08/08/2025 External Device Data [facility] Provider, Abstract 08/01/2025 External Device Data [facility] Provider, Abstract 08/01/2025 External Device Data [facility] Provider, Abstract 07/26/2025 Orders Only [facility] [place] [address] [address] Jennifer Pro FNP Thrombocytopenia (Primary Dx) 07/18/2025 Telephone [facility] G[facility]enterology - [place] [address] [place] [phone] Griffin San MD Other (Referral/) 07/18/2025 Abstract [facility] [address] [place] [phone] Provider, Abstract 07/18/2025 Orders Only [facility] [address] [place] [id number] Provider, Abstract 07/17/2025 Abstract [facility] [address] [place] [phone] Provider, Abstract 07/17/2025 Orders Only [facility] [address] [place] [phone] Provider, Abstract 07/13/2025 11:51 AM CDT Anesthesia Event [facility] Endoscopy [address] [place] [phone] Brice Granados II, 07/13/2025 10:00 AM CDT - 07/13/2025 10:20 AM CDT Surgery [facility] [address] [place] [phone] Griffin San MD ESOPHAGOGASTRODUODENOSCOPY 07/12/2025 External Device Data [facility] Provider, Abstract 07/11/2025 External Device Data [facility] Provider, Abstract 07/11/2025 External Device Data [facility] Provider, Abstract 07/08/2025 4:39 PM CDT - 07/15/2025 12:45 PM CDT Hospital Encounter [facility] Medical Surgical [address] [place] [phone] Stormy Mittal MD Saeed, Mariam, MD Shah, MD Antoine Leonard, Natanael Vieyra MD Acute metabolic encephalopathy Discharge Disposition: [facility](SNF) with Medicare Certification in Anticipation of Skilled Care from Last 3 Months Immunizations Immunization Administration Dates Next Due (PNEUMOVAX [...] on file 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 Gender Identity Not on file Sexual Orientation Not on file Last Filed Vital Signs Vital Sign Reading Time Taken Comments Blood Pressure 151/92 07/15/2025 8:13 AM CDT Pulse 76 07/15/2025 8:13 AM CDT Temperature 36.6 C (97.8 F) 07/15/2025 8:13 AM CDT Respiratory Rate 18 07/15/2025 8:13 AM CDT Oxygen Saturation 91% 07/15/2025 8:13 AM CDT Inhaled Oxygen Concentration - - Weight 52.4 kg (115 lb 8 oz) 07/10/2025 9:35 PM CDT Height - - Body Mass Index - - Plan of Treatment Health Maintenance Due Date Last Done Comments DTAP/TDAP/TD VACCINES (1 - Tdap) 1980 BREAST CANCER SCREENING 2001 COLORECTAL SCREENING 2006 Colorectal Cancer Screening 2006 FIT-DNA Q 3 years 2006 FIT/FOBT Q 1 year 2006 Flex Sig/CT Colonography Q 5 years 2006 ZOSTER VACCINE (1 of 2) 2011 RSV VACCINE (60+ or ) (1 - Risk 60-74 years 1-dose series) 2021 INFLUENZA VACCINE (#1) 2025 06/24/2019 Procedures Procedure Name Priority Date/Time Associated Diagnosis Comments TELEMETRY REPORT 07/18/2025 3:28 AM CDT COMPREHENSIVE METABOLIC PANEL Routine 5:41 AM CDT CBC WITH DIFFERENTIAL Routine 07/15/2025 5:41 AM CDT POC GLUCOSE Routine 07/14/2025 4:48 PM CDT RENAL FUNCTION PANEL Routine 07/14/2025 2:06 PM CDT POC GLUCOSE Routine 07/14/2025 11:23 AM CDT POC GLUCOSE Routine 07/14/2025 7:26 AM CDT COMPREHENSIVE METABOLIC PANEL Routine 5:02 AM CDT CBC WITH DIFFERENTIAL Routine 07/14/2025 5:02 AM CDT POC GLUCOSE Routine 07/13/2025 9:43 PM CDT POC GLUCOSE Routine 07/13/2025 5:01 PM CDT POC GLUCOSE Routine 07/13/2025 12:46 PM CDT UPPER ENDOSCOPY REPORT 12:04 PM CDT PATHOLOGY Pathology 07/13/2025 11:59 AM CDT ESOPHAGOGASTRODUODENOSCOPY 07/13 10:00 AM CDT POC GLUCOSE Routine 07/13/2025 7:09 AM CDT LACTATE DEHYDROGENASE Routine 07/13/2025 4:27 AM CDT MAGNESIUM LEVEL Routine 07/13/2025 4:27 AM CDT COMPREHENSIVE METABOLIC PANEL Routine 4:27 AM CDT CBC WITH DIFFERENTIAL Routine 07/13/2025 4:27 AM CDT POC GLUCOSE Routine 07/12/2025 9:04 PM CDT POC GLUCOSE Routine 07/12/2025 5:13 PM CDT HAPTOGLOBIN Routine 07/12/2025 1:26 PM CDT POC GLUCOSE Routine 07/12/2025 11:42 AM CDT POC GLUCOSE Routine 07/12/2025 7:15 AM CDT LACTATE DEHYDROGENASE Routine 07/12/2025 2:04 AM CDT PHOSPHORUS Routine 07/12/2025 2:04 AM CDT MAGNESIUM LEVEL Routine 07/12/2025 2:04 AM CDT COMPREHENSIVE METABOLIC PANEL Routine 2:04 AM CDT CBC WITH DIFFERENTIAL Routine 07/12/2025 2:04 AM CDT POC GLUCOSE Routine 07/12/2025 12:19 AM CDT POC GLUCOSE Routine 07/11/2025 9:[address] CHEST ABDOMEN PELVIS WO CONT Routine 07/11/2025 8:57 PM CDT POC GLUCOSE Routine 07/11/2025 5:03 PM CDT POC GLUCOSE Routine 07/11/2025 11:19 AM CDT LACTATE DEHYDROGENASE Routine 07/11/2025 7:25 AM CDT COMPREHENSIVE METABOLIC PANEL Stat 7:25 AM CDT CBC WITH DIFFERENTIAL Stat 07/11/2025 7:25 AM CDT POC GLUCOSE Routine 07/11/2025 7:18 AM CDT POC GLUCOSE Routine 07/11/2025 3:12 AM CDT POC GLUCOSE Routine 07/11/2025 12:08 AM CDT EEG VIDEO MONITORING Routine 07/10/2025 5:00 PM CDT POC GLUCOSE Routine 07/10/2025 4:57 PM CDT BASIC METABOLIC PANEL PLUS Stat 07/10 2:41 PM CDT CBC WITH DIFFERENTIAL Stat 07/10/2025 2:41 PM CDT TICK-BORNE PANEL, PCR Routine 07/10/2025 2:41 PM CDT JER SCREEN W/REFLEX Routine 07/10/2025 2:41 PM CDT SEDIMENTATION RATE Routine 07/10/2025 2:41 PM CDT C-REACTIVE PROTEIN Routine 07/10/2025 2:41 PM CDT FIBRINOGEN QUANTITATIVE Stat 07/10/20 2:41 PM CDT PTT Routine 07/10/2025 2:41 PM CDT HIV DETECTION W/REFLX CONFIRMATION Routine 07/10/2025 2:41 PM CDT ACUTE HEPATITIS PANEL Routine 07/10/2025 2:41 PM CDT RETICULOCYTES Routine 07/10/2025 2:41 PM CDT VITAMIN B12 AND FOLATE Routine 2:41 PM CDT FERRITIN Routine 07/10/2025 2:41 PM CDT IRON, TIBC, AND PERCENT SATURATION Routine 07/10/2025 2:41 PM CDT US RENAL + DOPPLER Stat 07/10/2025 1:09 PM CDT POC GLUCOSE Routine 07/10/2025 11:15 AM CDT POC GLUCOSE Routine 07/10/2025 7:24 AM CDT HAPTOGLOBIN Stat 07/10/2025 4:36 AM CDT LACTATE DEHYDROGENASE Stat 07/10/2025 4:36 AM CDT BASIC METABOLIC PANEL Routine 07/10/2025 4:36 AM CDT CBC WITHOUT DIFFERENTIAL Routine 025 4:36 AM CDT POC GLUCOSE Routine 07/10/2025 12:44 AM CDT POC GLUCOSE Routine 07/09/2025 9:11 PM CDT EEG VIDEO MONITORING Stat 07/09/2025 5:34 PM CDT POC GLUCOSE Routine 07/09/2025 4:15 PM CDT DIRECT ANTIGLOBULIN TEST Stat 025 2:01 PM CDT ECHO COMPLETE W BUBBLE STUDY Routine 12:25 PM CDT POC GLUCOSE Routine 07/09/2025 11:45 AM CDT TRANSFUSE PACKED RED BLOOD CELLS Routine 07/09/2025 10:51 AM CDT MRI BRAIN WO CONTRAST Routine 07/09/2025 9:29 AM CDT PERIPHERAL BLOOD SMEAR PATHOLOGY INTERP Routine 07/09/2025 7:44 AM CDT CBC WITH DIFFERENTIAL Routine 07/09/2025 7:44 AM CDT POC GLUCOSE Routine 07/09/2025 7:42 AM CDT BLOOD BANK AB IDENT Routine 07/09/2025 5:52 AM CDT TYPE AND SCREEN Routine 07/09/2025 5:52 AM CDT PREPARE RED BLOOD CELLS Routine 07/09/20 5:42 AM CDT PHOSPHORUS Routine 07/09/2025 4:30 AM CDT MAGNESIUM LEVEL Routine 07/09/2025 4:30 AM CDT BASIC METABOLIC PANEL Routine 07/09/2025 4:30 AM CDT CBC WITHOUT DIFFERENTIAL Routine 025 4:30 AM CDT POC GLUCOSE Routine 07/09/2025 4:14 AM CDT POC GLUCOSE Routine 07/09/2025 1:32 AM CDT DRUG SCREEN, URINE Routine 07/09/2025 12:30 AM CDT URINALYSIS W/REFLEX MICROSCOPIC Routine 07/09/2025 12:30 AM CDT POC GLUCOSE Routine 07/08/2025 10:41 PM CDT AMMONIA LEVEL Routine 07/08/2025 8:25 PM CDT BLOOD CULTURE Routine 07/08/2025 8:25 PM CDT BLOOD CULTURE Routine 07/08/2025 8:25 PM CDT BLOOD CULTURE Routine 07/08/2025 8:25 PM CDT BLOOD CULTURE Routine 07/08/2025 8:25 PM CDT EKG 12-LEAD Stat 07/08/2025 6:37 PM CDT TSH Routine 07/08/2025 6:01 PM CDT COMPREHENSIVE METABOLIC PANEL Stat 6:01 PM CDT CBC WITHOUT DIFFERENTIAL Stat 025 6:01 PM CDT PROTIME-INR Stat 07/08/2025 6:00 PM CDT SPUTUM CULTURE WITH GRAM STAIN Routine 0 07/08/2025 5:56 PM CDT PNEUMONIA PATHOGEN PCR PANEL Routine 5:56 PM CDT XR CHEST PA OR AP 1 VW Stat 5:15 PM CDT POC LACTIC ACID Routine 07/08/2025 5:01 PM CDT BLOOD GAS ARTERIAL Routine 07/08/2025 5:01 PM CDT POC GLUCOSE Routine 07/08/2025 4:59 PM CDT COMPREHENSIVE METABOLIC PANEL Routine 2:08 PM CDT BASIC METABOLIC PANEL Routine 07/08/2025 11:48 AM CDT PROTIME-INR Routine 07/05/2025 from Last 3 Months Results * TELEMETRY REPORT (07/18/2025 3:28 AM CDT) us Provider Scanning ECG ORDERABLES Final Result * (ABNORMAL) CBC WITH DIFFERENTIAL (07/15/2025 5:41 AM CDT) Only the most recent of7 resultswithin the time period is included. WBC 4.6(L) 4.8 - 10.8 K/uL 07/15/2025 6:31 AM [facility] RBC 2.74(L) 4.20 - 5.40 M/uL 07/15/2025 6:31 AM [facility] HEMOGLOBIN 8.8(L) 12.0 - 16.0 g/dL 07/15/2025 6:31 AM [facility] HEMATOCRIT 27.3(L) 36.0 - 46.0 % 07/15/2025 6:31 AM [facility] MCV 99.6 84.0 - 103.0 fL 07/15/2025 6:31 AM [facility] MCH 32.1 27.0 - 34.0 pg 07/15/2025 6:31 AM [facility] MCHC 32.2 30.0 - 35.0 g/dL 07/15/2025 6:31 AM [facility] PLATELETS 154 140 - 440 K/uL 07/15/2025 6:31 AM [facility] MPV 11.5 8.9 - 12.8 fL 07/15/2025 6:31 AM [facility] RDW 17.0(H) 11.0 - 14.5 % 07/15/2025 6:31 AM [facility] RDW-STDEV 62.1(H) 37.0 - 54.0 fL 07/15/2025 6:31 AM [facility] NEUTROPHILS 57 42 - 75 % 07/15/2025 6:31 AM [facility] LYMPHOCYTES 25 24 - 44 % 07/15/2025 6:31 AM [facility] MONOCYTES 14(H) 2 - 10 % 07/15/2025 6:31 AM [facility] EOSINOPHILS 2 0 - 7 % 07/15/2025 6:31 AM [facility] BASOPHILS 1 0 - 1 % 07/15/2025 6:31 AM [facility] IMMATURE GRANULOCYTES 1 0 - 2 % 07/15/2025 6:31 AM CDT [facility] NEUTROPHIL ABSOLUTE 2.66 2.00 - 8.00 K/uL 07/15/2025 6:31 AM CDT [facility] LYMPHOCYTE ABSOLUTE 1.14(L) 1.20 - 4.00 K/uL 07/15/2025 6:31 AM CDT [facility] MONOCYTE ABSOLUTE 0.64(H) 0.10 - 0.60 K/uL 07/15/2025 6:31 AM CDT [facility] EOSINOPHIL ABSOLUTE 0.11 0.00 - 0.70 K/uL 07/15/2025 6:31 AM CDT [facility] BASOPHILS ABSOLUTE 0.05 0.00 - 0.20 K/uL 07/15/2025 6:31 AM CDT [facility] IMMATURE GRANULOCYTES ABSOLUTE 0.04 0.00 - 0.10 K/uL 07/15/2025 6:31 AM T [facility] SMEAR REVIEWED: NA - Not Applicable 07/15/2025 6:31 AM T [facility] Blood Venipuncture / Unknown 07/15/2025 5:41 AM CDT 07/15/2025 6:27 AM CDT us Nava Quiros APPAREL MERCHANDISER HEMATOLOGY ORDERABLES Milvia l Result [facility] # [id number] [address] [place] [address] * (ABNORMAL) COMPREHENSIVE METABOLIC PANEL (07/15/2025 5:41 AM CDT) Only the most recent of7 resultswithin the time period is included. SODIUM 137 136 - 145 mmol/L 07/15/2025 7:03 AM T [facility] POTASSIUM 4.1 3.5 - 5.1 mmol/L 07/15/2025 7:03 AM T [facility] CHLORIDE 102 98 - 107 mmol/L 07/15/2025 7:03 AM [facility] CO2 29 22 - 29 mmol/L 07/15/2025 7:03 AM [facility] CALCIUM 8.9 8.8 - 10.2 mg/dL 07/15/2025 7:03 AM [facility] BUN 28(H) 8 - 23 mg/dL 07/15/2025 7:03 AM [facility] CREATININE 1.34(H) 0.51 - 0.95 mg/dL 07/15/2025 7:03 AM [facility] GLUCOSE 85 74 - 99 mg/dL 07/15/2025 7:03 AM [facility] TOTAL PROTEIN 5.1(L) 6.4 - 8.3 g/dL 07/15/2025 7:03 AM [facility] ALBUMIN 3.0(L) 3.5 - 5.2 g/dL 07/15/2025 7:03 AM [facility] BILIRUBIN TOTAL 0.4 0.0 - 1.0 mg/dL 07/15/2025 7:03 AM [facility] ALKALINE PHOSPHATASE 45 35 - 104 U/L 07/15/2025 7:03 AM [facility] AST 17 10 - 35 U/L 07/15/2025 7:03 AM [facility] ALT 9 <=35 U/L 07/15/2025 7:03 AM [facility] GFR 44(L) >=60 mL/min/1. 73 sq meter 07/15/2025 7:03 AM [facility] Comment:eGFR calculated with 2020 CKD-EPI equation. Vegetarian diet, extremely high or low muscle mass, and may affect results. Cystatin C with Glomerular Filtration Rate is a suitable alternative for these patients. ANION GAP 6(L) 9 - 20 mmol/L 07/15/2025 7:03 AM [facility] Blood Venipuncture / Unknown 07/15/2025 5:41 AM [facility] 07/15/2025 6:27 AM CDT Nava Quiros APPAREL MERCHAND[employer]ER CHEMISTRY ORDERABLES Final Result Performing Organization Address [facility]/ZIP Co de Phone Number [facility] CLIA # [id number] [address] [address] * POC GLUCOSE (07/14/2025 4:48 PM CDT) Only the most recent of30 resultswithin the time period is included. GLUCOSE POC 98 74 - 99 mg/dL 07/14/2025 4:48 PM CDT [facility] SPECIMEN SOURCE, GLUCOSE POC Capillary 07/14/2025 4:48 PM CDT [facility] Blood, whole 07/14/2025 4:48 PM CDT 07/14/2025 5:25 PM CDT Natanael Schultz MD POINT OF CARE TESTING Final Result Performing Organization Address [facility] Co de Phone Number [facility] CLIA # [id number] [address] [address] * (ABNORMAL) RENAL FUNCTION PANEL (07/14/2025 2:06 PM CDT) SODIUM 135(L) 136 - 145 mmol/L 07/14/2025 2:48 PM CDT [facility] POTASSIUM 4.6 3.5 - 5.1 mmol/L 07/14/2025 2:48 PM CDT [facility] CHLORIDE 98 98 - 107 mmol/L 07/14/2025 2:48 PM CDT [facility] CO2 29 22 - 29 mmol/L 07/14/2025 2:48 PM CDT [facility] CALCIUM 8.9 8.8 - 10.2 mg/dL 07/14/2025 2:48 PM CDT [facility] BUN 29(H) 8 - 23 mg/dL 07/14/2025 2:48 PM CDT [facility] CREATININE 1.38(H) 0.51 - 0.95 mg/dL 07/14/2025 2:48 PM CDT [facility] GLUCOSE 92 74 - 99 mg/dL 07/14/2025 2:48 PM CDT [facility] ALBUMIN 3.3(L) 3.5 - 5.2 g/dL 07/14/2025 2:48 PM CDT [facility] PHOSPHORUS 3.0 2.5 - 4.5 mg/dL 07/14/2025 2:48 PM CDT [facility] GFR 43(L) >=60 mL/min/1. 73 sq meter 07/14/2025 2:48 PM CDT [facility] Comment:eGFR calculated with 2020 CKD-EPI equation. Vegetarian diet, extremely high or low muscle mass, and may affect results. Cystatin C with Glomerular Filtration Rate is a suitable alternative for these patients. ANION GAP 8(L) 9 - 20 mmol/L 07/14/2025 2:48 PM CDT [facility] Blood Venipuncture / Unknown 07/14/2025 2:06 PM CDT 07/14/2025 2:10 PM CDT us Natanael Schultz MD CHEMISTRY ORDERABLES Final [id number] [address] [place] [address] * UPPER ENDOSCOPY REPORT (07/13/2025 12:04 PM CDT) Narrative Procedure Note Griffin San MD - 07/13/2025 12:04 PM CDT [facility] GI Patient Name: Viola Ennis Procedure Date: 07/13/2025 Date of : 1960 Admit Type: Inpatient Age: 65 Attending MD: Griffin San , , Procedure: Upper GI endoscopy Indications: Abdominal pain, Hematemesis, Weight loss Providers: Griffin San Referring MD: Natanael Schultz Medicines: Monitored Anesthesia Care Complications: No immediate complications. Procedure: Pre-Anesthesia Assessment: - The risks and benefits of the procedure and the sedation options and risks were discussed with the patient. All questions were answered and informed consent was obtained. - ASA Grade Assessment: III - A patient with severe systemic disease. After obtaining informed consent, the endoscope was passed under direct vision. Throughout the procedure, the patient's blood pressure, pulse, and oxygen saturations were monitored continuously. The Endoscope was introduced through the mouth, and advanced to the second part of duodenum. The upper GI endoscopy was accomplished without difficulty. The patient tolerated the procedure well. Estimated Blood Loss: Estimated blood loss was minimal. Findings: The esophagus was normal. Diffuse moderately erythematous mucosa without bleeding was found in the entire examined stomach. Biopsies were taken with a cold forceps for histology. The examined duodenum was normal. Impression: - Normal esophagus. - Erythematous mucosa in the stomach. Biopsied. - Normal examined duodenum. Recommendation: - Await pathology results. Griffin San, 07/13/2025 12:04:42 PM Number of Addenda: 0 Note Initiated On: 07/13/2025 11:44 AM Scope Withdrawal Time Scope In: Scope Out: [address] [place], [place] Griffin San MD GI PROCEDURE ORDERABLES Final Result * PATHOLOGY (07/13/2025 11:59 AM CDT) CASE REPORT Surgical Pathology Report Case: [id number] Authorizing Provider: Griffin San MD Collected: 07/13/2025 11:59 AM Ordering Location: [facility] Received: 07/14/2025 06:37 AM Endoscopy Pathologist: Susie Powers MD Specimen: Stomach 6:43 AM CDT [facility] FINAL DIAGNOSIS A. Stomach, biopsy - Focally active chronic gastritis with associated reactive/regenerative epithelial and stromal changes, consistent with repair - No intestinal metaplasia, dysplasia, or malignancy - Immunohistochemistry for Helicobacter pylori is negative Susie Powers MD [id number] 5 6:43 AM T [facility] at 0643 CDT GROSS DESCRIPTION A. Received in a container of formalin labeled [place] -stomach rule out gastritis and H. pylori are two fragments of mucosa, up to 0.3 cm in greatest dimension. The specimen is submitted entirely in A1. Grossed by: Duina Mcdowell MS, PA ([facility]) 5 6:43 AM T [facility] MICROSCOPIC DESCRIPTION Immunohistochemistry for Helicobacter pylori was ordered on block A1 after review of H&E-stained slides based on the presence of inflammatory changes and clinician request to evaluate for infection. 5 6:43 AM T [facility] OPERATIVE PROCEDURE 1: ESOPHAGOGASTRODUODENOSCO PY 5 6:43 AM T [facility] CLINICAL INFORMATION R/o gastritis vs R/o H Pylori 5 6:43 AM T [facility] COMMENT [employer] voice-activated dictation system may have been used in the creation of this report. Inherent to this system is the possibility of errors in syntax, grammar, punctuation, or other areas that could impact interpretation. If there are interpretive questions about the report, please contact the performing pathologist. Unless gross only is specified in the diagnosis, the microscopic examination substantiates the above cited diagnosis. The performance characteristics of all immunohistochemical stains cited in this report (if any) were determined by the Diagnostic Immunohistochemistry Laboratory of [facility] in compliance with CLIA'88 regulations. Some of these tests rely on the use of analyte specific reagents and are subject to specific labeling requirements by the FDA. All controls show appropriate reactivity. This testing was developed by the Diagnostic Immunohistochemistry Laboratory of [facility]. It has not been cleared or approved by the FDA. The FDA has determined that such clearance or approval is not necessary. 5 6:43 AM [facility] Tissue ENTIRE STOMACH / Unknown Collection / Unknown 07/13/2025 11:59 AM CDT 07/14/2025 6:37 AM CDT Comment:R/o gastritis vs R/o H Pylori us Griffin San MD PATHOLOGY/CYTOLOGY ORDERABLES Final Result Performing Organization Address City/[facility]/ZIP Co de Phone Number [facility] CLIA # [id number] [address] [address] [place] [address] * MAGNESIUM LEVEL (07/13/2025 4:27 AM CDT) Only the most recent of3 resultswithin the time period is included. MAGNESIUM 2.2 1.6 - 2.4 mg/dL 07/13/2025 5:27 AM CDT [facility] Blood Venipuncture / Unknown 07/13/2025 4:27 AM CDT 07/13/2025 4:55 AM CDT us Natanael Schultz MD CHEMISTRY ORDERABLES Final R esult Performing Organization Address [facility]/ZIP Co de Phone Number [facility] CLIA # [id number] [address] [address] * (ABNORMAL) LACTATE DEHYDROGENASE (07/13/2025 4:27 AM CDT) Only the most recent of4 resultswithin the time period is included. LD (LACTATE DEHYDROGENASE) 351(H) 135 - 214 U/L 07/13/2025 8:05 AM CDT [facility] Blood Venipuncture / Unknown 07/13/2025 4:27 AM CDT 07/13/2025 4:55 AM CDT us Dunia Baron DO CHEMISTRY ORDERABLES Fi nal Result Performing Organization Address City/[facility]/ZIP Co de Phone Number [facility] kwiry [facility] CLIA # [id number] [address] [place] [address] * (ABNORMAL) HAPTOGLOBIN (07/12/2025 1:26 PM CDT) Only the most recent of2 resultswithin the time period is included. HAPTOGLOBIN <10(L) 30 - 200 mg/dL 07/12/2025 2:36 PM CDT [facility] Blood Venipuncture / Unknown 07/12/2025 1:26 PM CDT 07/12/2025 1:39 PM CDT Dunia Baron DO CHEMISTRY ORDERABLES Fi nal Result Performing Organization Address City/[facility]/ZIP Co de Phone Number [facility] CLIA # [id number] [address] [address] [place] [address] * (ABNORMAL) PHOSPHORUS (07/12/2025 2:04 AM CDT) Only the most recent of2 resultswithin the time period is included. PHOSPHORUS 2.4(L) 2.5 - 4.5 mg/dL 07/12/2025 2:59 AM CDT [facility] Blood Venipuncture / Unknown 07/12/2025 2:04 AM CDT 07/12/2025 2:27 AM CDT Natanael Schultz MD CHEMISTRY ORDERABLES Final R esult [facility] CLIA # [id number] [address] [facility] [place] [address] * CT CHEST ABDOMEN PELVIS WO CONT (07/11/2025 8:57 PM CDT) Anatomical Region Laterality Modality Chest Computed Tomogra phy 07/11/2025 8:52 PM CDT Impressions 07/12/2025 7:03 AM CDT IMPRESSION: Please see below. Exam: CT CHEST ABDOMEN PELVIS WO CONT Date/Time of Exam: 07/11/2025 8:57 PM REASON FOR EXAM: Metastatic disease evaluation. DIAGNOSIS: See Reason for Exam. Technique: CT of the chest, abdomen, and pelvis was performed without the administration of intravenous contrast. Findings: Examination is limited by noncontrast technique and artifact from posterior spinal fusion hardware in the setting of scoliosis. CHEST: There is a 3 mm nodule in the lateral right upper lobe on image 121 of series 3 and on sagittal image 225 of series 601. Subsegmental atelectasis is seen in the lung bases, right greater than left. There is pulmonary hyperinflation with moderate to severe centrilobular emphysema, greatest in the upper lobes. There is a trace right pleural effusion. Otherwise, there is no pneumothorax or pleural effusion. The airways are patent. There is no pathologic mediastinal or hilar adenopathy. Coronary disease and aortic atherosclerotic changes are incompletely evaluated due to noncontrast technique. There is a trace pericardial effusion which is likely physiologic. There is lucency seen along the T4 and T6 transpedicular screws at vein indicate some degree of some chronic loosening. There is mild lucency seen surrounding the right T7 transpedicular screw in the right T9 transpedicular screw the left T11 transpedicular screw is partially extraosseous along the lateral aspect of the vertebral body, chronic. ABDOMEN: The liver and biliary tree are unremarkable for noncontrast technique and prior cholecystectomy. The spleen, adrenal glands, and pancreas are within normal limits. The stomach is unremarkable. The small bowel loops are within normal limits. There is slight increase in colonic fluid density which may represent some ingested contrast or high density material with multiple air-fluid levels seen in the colon without overt distention or inflammatory change. There is no pathologic mesenteric or retroperitoneal adenopathy. There is chronic left renal cortical atrophy. The right kidney is unremarkable for noncontrast technique. Scattered atherosclerotic changes in the abdominal aorta are incompletely evaluated due to noncontrast technique. Anterior and posterior spinal fusion is seen in the lumbar spine with loss of normal lumbar lordosis and advanced spondylosis. Pelvis: Bladder is distended but otherwise unremarkable. The uterus is absent and the adnexa are atrophic and are absent. There is no pathologic inguinal or pelvic adenopathy. There is mild body wall edema. The bony pelvis is intact with degenerative changes. IMPRESSION: 1. No evidence of primary malignancy identified to account for the patient's symptoms allowing for limitations of noncontrast technique and artifact from hardware. 2. 3 mm right upper lobe nodule, superimposed on COPD/emphysema. A follow-up CT scan in 12 months is recommended. 3. Mild bibasilar atelectasis with a small right pleural effusion. 4. Air-fluid levels in the colon without inflammatory changes may indicate mild colonic ileus. 5. Additional incidental findings as above. Narrative Procedure Note aMrk Herrmann MD - 07/12/2025 IMPRESSION: Please see below. Exam: CT CHEST ABDOMEN PELVIS WO CONT Date/Time of Exam: 07/11/2025 8:57 PM REASON FOR EXAM: Metastatic disease evaluation. DIAGNOSIS: See Reason for Exam. Technique: CT of the chest, abdomen, and pelvis was performed without the administration of intravenous contrast. Findings: Examination is limited by noncontrast technique and artifact from posterior spinal fusion hardware in the setting of scoliosis. CHEST: There is a 3 mm nodule in the lateral right upper lobe on image 121 of series 3 and on sagittal image 225 of series 601. Subsegmental atelectasis is seen in the lung bases, right greater than left. There is pulmonary hyperinflation with moderate to severe centrilobular emphysema, greatest in the upper lobes. There is a trace right pleural effusion. Otherwise, there is no pneumothorax or pleural effusion. The airways are patent. There is no pathologic mediastinal or hilar adenopathy. Coronary disease and aortic atherosclerotic changes are incompletely evaluated due to noncontrast technique. There is a trace pericardial effusion which is likely physiologic. There is lucency seen along the T4 and T6 transpedicular screws at vein indicate some degree of some chronic loosening. There is mild lucency seen surrounding the right T7 transpedicular screw in the right T9 transpedicular screw the left T11 transpedicular screw is partially extraosseous along the lateral aspect of the vertebral body, chronic. ABDOMEN: The liver and biliary tree are unremarkable for noncontrast technique and prior cholecystectomy. The spleen, adrenal glands, and pancreas are within normal limits. The stomach is unremarkable. The small bowel loops are within normal limits. There is slight increase in colonic fluid density which may represent some ingested contrast or high density material with multiple air-fluid levels seen in the colon without overt distention or inflammatory change. There is no pathologic mesenteric or retroperitoneal adenopathy. There is chronic left renal cortical atrophy. The right kidney is unremarkable for noncontrast technique. Scattered atherosclerotic changes in the abdominal aorta are incompletely evaluated due to noncontrast technique. Anterior and posterior spinal fusion is seen in the lumbar spine with loss of normal lumbar lordosis and advanced spondylosis. Pelvis: Bladder is distended but otherwise unremarkable. The uterus is absent and the adnexa are atrophic and are absent. There is no pathologic inguinal or pelvic adenopathy. There is mild body wall edema. The bony pelvis is intact with degenerative changes. IMPRESSION: 1. No evidence of primary malignancy identified to account for the patient's symptoms allowing for limitations of noncontrast technique and artifact from hardware. 2. 3 mm right upper lobe nodule, superimposed on COPD/emphysema. A follow-up CT scan in 12 months is recommended. 3. Mild bibasilar atelectasis with a small right pleural effusion. 4. Air-fluid levels in the colon without inflammatory changes may indicate mild colonic ileus. 5. Additional incidental findings as above. us Nava Quiros NP CT ORDERABLES Final Resu lt * EEG VIDEO MONITORING (07/10/2025 5:00 PM CDT) Narrative Marine Guerra MD - 07/10/2025 5:00 PM CDT Marine Guerra MD 07/10/2025 5:40 PM [facility] EEG REPORT Viola Ennis [id number] DATE(s) OF TEST: 07/09/2025 - 07/10/2025 DATE OF REPORT: 07/10/2025 Start time: 5 PM, 07/09/2025 Stop time: 5 PM, 07/10/2025 HISTORY: 65-year-old female is being evaluated for altered mental status MEDICATIONS THAT COULD AFFECT THE EEG: No antiseizure medications TECHNICAL SUMMARY: This is a digital video EEG recorded with 32 input channels on a [employer] system, reviewed with bipolar and referential montages using the International 10--20 System. EEG recording was intermittently obscured by artifact thus limiting interpretation. DESCRIPTION OF RECORD: During the maximally alert state a 7 Hz posterior dominant rhythm was seen that was symmetric, reactive to eye opening and well regulated. Background was symmetric, continuous, reactive and was represented by theta activity. No organized sleep architecture was noted. HV: Hyperventilation was not performed. PHOTIC STIMULATION: Photic stimulation was not done. VIDEO EVENTS: None Noted ELECTROCARDIOGRAM EVENTS: Regular rhythm IMPRESSION: Abnormal lethargic video EEG due to: Continuous, slow, generalized, theta range, reactive CLINICAL CORRELATION: This EEG record is noted for a mild degree of encephalopathy of nonspecific etiology. No epileptiform discharges or ictal patterns were recorded. Clinical correlation is recommended. For any questions, kindly page. Marine Guerra MD Epilepsy/ Clinical Neurophysiology/ Neurology [facility] [facility] us Maritza Chauhan MD NEUROLOGY ORDERABLES Edited Resu lt - Final * TICK-BORNE PANEL, PCR (07/10/2025 2:41 PM CDT) ANAPLASMA PHAGOCYTOPHILUM PCR NOT DETECTED 07/14/2025 2:00 PM CDT [facility] Comment: REFERENCE RANGE: NOT DETECTED This test was developed and its analytical performance characteristics have been determined by [facility]. It has not been cleared or approved by FDA. This assay has been validated pursuant to the CLIA regulations and is used for clinical purposes. BABESIA MICROTI PCR NOT DETECTED 2:00 PM CDT [facility] Comment: REFERENCE RANGE: NOT DETECTED This test was developed and its analytical performance characteristics have been determined by [facility]. It has not been cleared or approved by FDA. This assay has been validated pursuant to the CLIA regulations and is used for clinical purposes. EHRLICHIA CHAFFEENSIS PCR NOT DETECTED 07/14/2025 2:00 PM CDT [facility] Comment: REFERENCE RANGE: NOT DETECTED This test was developed and its analytical performance characteristics have been determined by [facility]. It has not been cleared or approved by FDA. This assay has been validated pursuant to the CLIA regulations and is used for clinical purposes. EHRLICHIA EWINGII DNA, QL REAL TIME PCR NOT DETECTED 07/14/2025 2:00 PM CDT [facility] Comment: REFERENCE RANGE: NOT DETECTED This test was developed and its analytical performance characteristics have been determined by [facility]. It has not been cleared or approved by FDA. This assay has been validated pursuant to the CLIA regulations and is used for clinical purposes. BORRELIA MIYAMOTOI PCR NOT DETECTED 07/14/2025 2:00 PM CDT [facility] Comment: REFERENCE RANGE: NOT DETECTED This test detects but does not distinguish between B. miyamotoi and B. hermsii. This test was developed and its analytical performance characteristics have been determined by [facility]. It has not been cleared or approved by FDA. This assay has been validated pursuant to the CLIA regulations and is used for clinical purposes. COMMENT INFECTIOUS DISEASE SEE COMMENT 07/14/2025 2:00 PM CDT [facility] Comment: A negative result does not exclude Borrelia infection as the concentration of the organism in blood may be low or non-existent in patients with Lyme disease, and may depend on timing of specimen collection from onset of symptoms. Clinical correlation is recommended and additional studies such as serologic testing may be indicated. BORRELIA SP, PCR, BLOOD NOT DETECTED 07/14/2025 2:00 PM CDT [facility] Comment: REFERENCE RANGE: NOT DETECTED This test was developed and its analytical performance characteristics have been determined by [facility]. It has not been cleared or approved by FDA. This assay has been validated pursuant to the CLIA regulations and is used for clinical purposes. For additional information, please refer to https://education.Keek.[employer] [place]/faq/kgq061 (This link is being provided for informational/ educational purposes only.) Blood Venipuncture / Unknown 07/10/2025 2:41 PM CDT 07/10/2025 2:45 PM CDT Narrative [facility] - 07/14/2025 2:00 PM CDT Performing Organization Information: Site ID: EZ Name: [facility], Address: [address] [place] [id number] Director: Yasmeen Ramesh MD,PhD,MIMA Performing Organization Information: Site ID: EZ Name: [employer] [facility] [facility], Address: [address] [place] [id number] Director: Yasmeen Ramesh MD,PhD,MIMA Performing Organization Information: Site ID: EZ Name: [facility], Address: [address] [place] [phone] Director: Yasmeen Ramesh MD,PhD,MIMA Performing Organization Information: Site ID: EZ Name: [facility], Address: [address] [place] [phone] Director: Yasmeen Ramesh MD,PhD,MIMA Nava Quiros [employer] CHEMISTRY ORDERABLES Final Result Performing Organization Address [facility]/ZIP Co de Phone Number [facility] * HIV DETECTION W/REFLX CONFIRMATION (07/10/2025 2:41 PM CDT) [facility] HIV-1 AND 2 ABS AND HIV-1 AG Non-reacti ve Non-React mikhail 07/10/2025 3:43 PM CDT [facility] Blood Venipuncture / Unknown 07/10/2025 2:41 PM CDT 07/10/2025 2:44 PM CDT Nava Quiros [employer] CHEMISTRY ORDERABLES Final Result Performing Organization Address [facility] Co de Phone Number [facility] CLIA # [id number] [address] [place] [address] * (ABNORMAL) BASIC METABOLIC PANEL PLUS (ADD ON CMP TO BMP) (07/10/2025 2:41 PM CDT) Pathologist [facility] TOTAL PROTEIN 5.5(L) 6.4 - 8.3 g/dL 07/10/2025 3:31 PM CDT [facility] ALBUMIN 3.5 3.5 - 5.2 g/dL 07/10/2025 3:31 PM CDT [facility] BILIRUBIN TOTAL 1.0 0.0 - 1.0 mg/dL 07/10/2025 3:31 PM CDT [facility] ALKALINE PHOSPHATASE 42 35 - 104 U/L 07/10/2025 3:31 PM CDT [facility] AST 25 10 - 35 U/L 07/10/2025 3:31 PM CDT [facility] ALT 15 <=35 U/L 07/10/2025 3:31 PM CDT [facility] Blood Venipuncture / Unknown 07/10/2025 2:41 PM CDT 07/10/2025 2:45 PM CDT us Nava Quiros [employer] CHEMISTRY ORDERABLES Final Result [facility] CLIA # [id number] [address] [place] [address] [place] [address] * ACUTE HEPATITIS PANEL (07/10/2025 2:41 PM CDT) HEPATITIS B SURFACE AG NON-REACT MIKHAIL Non-react mikhail 07/10/2025 3:57 PM CDT [facility] Comment:A non-reactive test result does not exclude the possibility of exposure to or infection with hepatitis B. HEPATITIS B CORE IGM NON-REACT MIKHAIL Non-react mikhail 07/10/2025 3:57 PM CDT [facility] Comment:IgM antibodies to HB c were not detected; does not exclude the possibility of exposure to HBV. HEPATITIS A IGM Non-react mikhail Non-react mikhail 07/10/2025 3:57 PM CDT [facility] Comment:A negative test resu lt does not exclude the possibility of exposure to Hepatitis A virus. HEPATITIS C AB NON-REACT MIKHAIL Non-react mikhail 07/10/2025 3:57 PM CDT [facility] Comment:Antibodies to HCV we re not detected, does not exclude the possibility of exposure to HCV. Blood Venipuncture / Unknown 07/10/2025 2:41 PM CDT 07/10/2025 2:45 PM CDT Nava Quiros [employer] CHEMISTRY ORDERABLES Final Result Performing Organization Address [facility]/ZIP Co de Phone Number [facility] CLIA # [id number] [address] [address] * VITAMIN B12 AND FOLATE (07/10/2025 2:41 PM CDT) VITAMIN B12 610 211 - 946 pg/mL 07/10/2025 3:42 PM CDT [facility] FOLATE, SERUM 3.1 3.1 - 17.5 ng/mL 07/10/2025 3:42 PM CDT [facility] Blood Venipuncture / Unknown 07/10/2025 2:41 PM CDT 07/10/2025 2:51 PM CDT Nava Quiros [employer] CHEMISTRY ORDERABLES Final Result Performing Organization Address [facility] Co de Phone Number [facility] CLIA # [id number] [address] [address] * IRON, TIBC, AND PERCENT SATURATION (07/10/2025 2:41 PM CDT) IRON 101 37 - 145 ug/dL 07/10/2025 3:31 PM CDT [facility] TIBC 252 250 - 450 ug/dL 07/10/2025 3:31 PM CDT [facility] IRON % SATURATION 40 15 - 60 % 07/10/2025 3:31 PM CDT [facility] Blood Venipuncture / Unknown 07/10/2025 2:41 PM CDT 07/10/2025 2:45 PM CDT Nava Quiros [employer] CHEMISTRY ORDERABLES Final Result [facility] CLIA # [id number] [address] [address] [place] [address] * PTT (07/10/2025 2:41 PM CDT) PTT 35.8 24.8 - 37.2 seconds 07/10/2025 3:03 PM CDT [facility] Blood Venipuncture / Unknown 07/10/2025 2:41 PM CDT 07/10/2025 2:47 PM CDT Narrative [facility] - 07/10/2025 3:03 PM CDT Therapeutic Range: Hi-level PE/DVT heparin protocol 80.1 - 95.0 sec Lo-level PE/DVT heparin protocol 70.1 - 85.0 sec Cardiac Heparin Protocol 70.1 - 100.0 sec Nava Quiros NP HEMATOLOGY ORDERABLES Milvia l Result Performing Organization Address [facility] Co de Phone Number [facility] CLIA # [id number] [address] [address] [place] [address] * SEDIMENTATION RATE (07/10/2025 2:41 PM CDT) ESR (SEDIMENTATION RATE) 11 0 - 20 mm/Hr 07/10/2025 3:55 PM CDT [facility] Blood Venipuncture / Unknown 07/10/2025 2:41 PM CDT 07/10/2025 2:47 PM CDT Nava Quiros NP HEMATOLOGY ORDERABLES Milvia l Result Performing Organization Address City/[facility]/ZIP Co de Phone Number [facility] CLIA # [id number] [address] [facility] [place] [address] * FIBRINOGEN QUANTITATIVE (07/10/2025 2:41 PM CDT) FIBRINOGEN 324 200 - 400 mg/dL 07/10/2025 3:03 PM CDT [facility] Blood Venipuncture / Unknown 07/10/2025 2:41 PM CDT 07/10/2025 2:47 PM CDT Nava Quiros [employer] HEMATOLOGY ORDERABLES Milvia l Result Performing Organization Address [facility] Co de Phone Number [facility] CLIA # [id number] [address] [address] * (ABNORMAL) RETICULOCYTES (07/10/2025 2:41 PM CDT) RETICULOCYTES 1.8 0.9 - 2.2 % 07/10/2025 2:53 PM CDT [facility] IMMATURE RETIC FRACTION 16.8(H) 3.3 - 13.6 % 07/10/2025 2:53 PM CDT [facility] RETICULOCYTE, ABSOLUTE 0.0623 0.0160 - 0.0700 10e6/uL 07/10/2025 2:53 PM CDT [facility] RETICULOCYTE HEMOGLOBIN CONTENT 35.7 27.8 - 37.7 pg 07/10/2025 2:53 PM CDT [facility] Blood Venipuncture / Unknown 07/10/2025 2:41 PM CDT 07/10/2025 2:47 PM CDT Nava Quiros [employer] HEMATOLOGY ORDERABLES Milvia l Result Performing Organization Address [facility] Co de Phone Number [facility] CLIA # [id number] [address] [address] * (ABNORMAL) C-REACTIVE PROTEIN (07/10/2025 2:41 PM CDT) CRP 62.6(H) 0.0 - 5.0 mg/L 07/10/2025 3:31 PM CDT [facility] Blood Venipuncture / Unknown 07/10/2025 2:41 PM CDT 07/10/2025 2:45 PM CDT Nava Quiros [employer] CHEMISTRY ORDERABLES Final Result [facility] CLIA # [id number] [address] [address] * JER SCREEN W/REFLEX (07/10/2025 2:41 PM CDT) [facility] JER SCREEN NEGATIVE NEGATIVE 07/13/2025 6:43 PM CDT [facility] Comment: JER IFA is a first line screen for detecting the presence of up to approximately 150 autoantibodies in various autoimmune diseases. A negative JER IFA result suggests an JER-associated autoimmune disease is not present at this time, and does not reflex further. If there is high clinical suspicion for Sjogren's syndrome, testing for anti-SS-A/Ro antibody should be considered. Anti-Kathleen-1 antibody should be considered for clinically suspected inflammatory myopathies. AC-0: Negative International Consensus on JER Patterns (https://doi.org/10.1515/dxqn-7528-4400) For additional information, please refer to http://education.Digby.[employer] [place]/faq/UFU595 (This link is being provided for informational/ educational purposes only.) Blood Venipuncture / Unknown 07/10/2025 2:41 PM CDT 07/10/2025 2:51 PM CDT Narrative [facility] - 07/13/2025 6:43 PM CDT Performing Organization Information: Site ID: [place] Name: [facility] Address: [address] [address] Director: Jessa Barajas MD us Nava Quiros NP CHEMISTRY ORDERABLES Final Result [facility] * (ABNORMAL) FERRITIN (07/10/2025 2:41 PM CDT) FERRITIN 904.6(H) 13.0 - 150.0 ng/mL 07/10/2025 3:31 PM CDT [facility] Blood Venipuncture / Unknown 07/10/2025 2:41 PM CDT 07/10/2025 2:45 PM CDT Nava Quiros NP CHEMISTRY ORDERABLES Final Result Performing Organization Address [facility] Co de Phone Number [facility] CLIA # [id number] [address] [place] [address] * US RENAL + DOPPLER (07/10/2025 1:09 PM CDT) Anatomical Region Laterality Modality Abdomen Ultrasound 07/10/2025 1:09 PM CDT Impressions 07/10/2025 1:40 PM CDT IMPRESSION: 1. Borderline elevated left renal resistive index measuring 0.72. 2. Findings in the left kidney are consistent with chronic medical renal disease. 3. No evidence of hydronephrosis. Narrative 07/10/2025 1:40 PM CDT Exam: US RENAL + DOPPLER Date/Time of Exam: 07/10/2025 1:09 PM Reason For Exam: Hydronephrosis Diagnosis: See Reason for Exam An ultrasound study was performed on the kidneys. The left kidney appears somewhat shrunken and atrophic measuring 8.5 cm in length. Left renal cortex shows diffusely increased echogenicity. The right kidney is of normal size, contour and position and measures 12.0 cm in length. Right renal cortex shows normal echogenicity and cortical thickness is well maintained. There is no evidence of any shadowing stones, renal soft tissue masses or hydronephrosis. A few small simple cysts are seen in the right kidney. The right renal resistive index was 0.65. Left resistive index was borderline elevated measuring 0.72. Procedure Note Anshu Couch MD - 07/10/2025 Exam: US RENAL + DOPPLER Date/Time of Exam: 07/10/2025 1:09 PM Reason For Exam: Hydronephrosis Diagnosis: See Reason for Exam An ultrasound study was performed on the kidneys. The left kidney appears somewhat shrunken and atrophic measuring 8.5 cm in length. Left renal cortex shows diffusely increased echogenicity. The right kidney is of normal size, contour and position and measures 12.0 cm in length. Right renal cortex shows normal echogenicity and cortical thickness is well maintained. There is no evidence of any shadowing stones, renal soft tissue masses or hydronephrosis. A few small simple cysts are seen in the right kidney. The right renal resistive index was 0.65. Left resistive index was borderline elevated measuring 0.72. IMPRESSION: 1. Borderline elevated left renal resistive index measuring 0.72. 2. Findings in the left kidney are consistent with chronic medical renal disease. 3. No evidence of hydronephrosis. Stormy Mittal MD US ORDERABLES Final Result * (ABNORMAL) CBC WITHOUT DIFFERENTIAL (07/10/2025 4:36 AM CDT) Only the most recent of3 resultswithin the time period is included. [facility] WBC 5.4 4.8 - 10.8 K/uL 07/10/2025 4:56 AM [facility] RBC 2.95(L) 4.20 - 5.40 M/uL 07/10/2025 4:56 AM T [facility] HEMOGLOBIN 9.5(L) 12.0 - 16.0 g/dL 07/10/2025 4:56 AM T [facility] HEMATOCRIT 27.4(L) 36.0 - 46.0 % 07/10/2025 4:56 AM T [facility] MCV 92.9 84.0 - 103.0 fL 07/10/2025 4:56 AM T [facility] MCH 32.2 27.0 - 34.0 pg 07/10/2025 4:56 AM CDT [facility] MCHC 34.7 30.0 - 35.0 g/dL 07/10/2025 4:56 AM CDT [facility] PLATELETS 39(L) 140 - 440 K/uL 07/10/2025 4:56 AM CDT [facility] MPV 07/10/2025 4:56 AM T [facility] Comment:MPV not resulted due to platelet size variation. RDW 18.6(H) 11.0 - 14.5 % 07/10/2025 4:56 AM CDT [facility] RDW-STDEV 64.4(H) 37.0 - 54.0 fL 07/10/2025 4:56 AM T [facility] Blood Venipuncture / Unknown 07/10/2025 4:36 AM CDT 07/10/2025 4:45 AM CDT Inocencia Neff [facility] HEMATOLOGY ORDERABLE S Final Result [facility] CLIA # [id number] [address] [place] [id number] * (ABNORMAL) BASIC METABOLIC PANEL (07/10/2025 4:36 AM CDT) Only the most recent of3 resultswithin the time period is included. SODIUM 135(L) 136 - 145 mmol/L 07/10/2025 5:22 AM CDT [facility] POTASSIUM 3.5 3.5 - 5.1 mmol/L 07/10/2025 5:22 AM CDT [facility] CHLORIDE 103 98 - 107 mmol/L 07/10/2025 5:22 AM CDT [facility] CO2 21(L) 22 - 29 mmol/L 07/10/2025 5:22 AM T [facility] CALCIUM 7.8(L) 8.8 - 10.2 mg/dL 07/10/2025 5:22 AM CDT [facility] BUN 13 8 - 23 mg/dL 07/10/2025 5:22 AM T [facility] CREATININE 0.87 0.51 - 0.95 mg/dL 07/10/2025 5:22 AM T [facility] GLUCOSE 94 74 - 99 mg/dL 07/10/2025 5:22 AM T [facility] GFR >60 >=60 mL/min/1.7 3 sq meter 07/10/2025 5:22 AM T [facility] Comment:eGFR calculated with 2020 CKD-EPI equation. Vegetarian diet, extremely high or low muscle mass, and may affect results. Cystatin C with Glomerular Filtration Rate is a suitable alternative for these patients. ANION GAP 11 9 - 20 mmol/L 07/10/2025 5:22 AM [facility] Blood Venipuncture / Unknown 07/10/2025 4:36 AM CDT 07/10/2025 4:48 AM CDT Inocencia Neff [facility]LINE [facility] CHE[facility] ORDERABLES Final Result [facility] CLIA # [id number] [address] [place] [id number] * EEG VIDEO MONITORING (07/09/2025 5:34 PM CDT) Narrative Shayy Brannon MD - 07/09/2025 5:34 PM CDT Shayy Brannon MD 07/09/2025 5:34 PM [facility] CONTINUOUS ELECTROENCEPHALOGRAM (EEG) REPORT Patient Name: Viola Ennis Patient Patient : 1960 Patient Age: 65 y.o. Patient gender: female Ordering provider: Stormy Mittal MD Date(s) of Service: START TIME: 07/09/25 at 0206 AM END TIME: 07/09/25 1700 Type of study: Continuous 24 hr Video EEG Monitoring Report Reason for study/diagnosis: 65 y.o. female with altered mental status. EEG was performed to evaluate for seizures. Current medications: Current Facility-Administered Medications: propofol (DIPRIVAN) 10 mg/mL continuous infusion, 0-50 mcg/kg/min, IV, titrate, Stormy Mittal MD [COMPLETED] midazolam (VERSED) injection 2 mg, 2 mg, IV, ONE time only, Stormy Mittal MD, 2 mg at 07/09/25 0904 replacement reminder - Potassium, 1 Each, See Admin Instructions, see admin instructions, Stormy Mittal MD replacement reminder-Magnesium, 1 Each, See Admin Instructions, see admin instructions, Stormy Mittal MD replacement reminder - Phosphorus, 1 Each, See Admin Instructions, see admin instructions, Stormy Mittal MD replacement reminder-Calcium, 1 Each, See Admin Instructions, see admin instructions, Stormy Mittal MD [COMPLETED] potassium BICARBONATE-citric acid (EFFER-K) tablet 40 mEq, 40 mEq, Oral, every 4 hours, Stormy Mittal MD, 40 mEq at 07/09/25 1150 [COMPLETED] magnesium SULFATE in water 4 gram/100 mL IVPB 4 Gram, 4 Gram, IV, ONE time only, Stormy Mittal MD, Stopped at 07/09/25 1539 [COMPLETED] potassium, sodium PHOSPHATES (PHOS-NaK) 280-160-250 mg oral powder 1 Packet, 1 Packet, Oral, ONE time only, Stormy Mittal MD, 1 Packet at 07/09/25 1136 [COMPLETED] sodium chloride flush injection 10 mL, 10 mL, IV, intra-proc ONE time, Inocencia Neff APRN-BC, 10 mL at 07/09/25 1000 cefTRIAXone (ROCEPHIN) 2,000 mg in sodium chloride 0.9% 50 mL IVPB (MBP), 2,000 mg, IV, every 24 hours (daily), Stormy Mittal MD, Stopped at 07/09/25 1419 tamsulosin (FLOMAX) SR 24 hour capsule 0.4 mg, 0.4 mg, Oral, daily AFTER supper, Stormy Mittal MD, 0.4 mg at 07/09/25 1441 naloxone (NARCAN) 0.4 mg/mL injection 0.1-0.4 mg, 0.1-0.4 mg, IV, see admin instructions, Inocencia Neff APRN-BC famotidine (PEPCID) tablet 20 mg, 20 mg, Oral, BID, Inocencia Neff APRN-BC, 20 mg at 07/09/25 1021 [] dextrose 50% (D50) syringe 12.5 Gram, 12.5 Gram, IV, see admin instructions, Inocencia Neff APRN-BC [] dextrose 50% (D50) syringe 25 Gram, 25 Gram, IV, see admin instructions, Inocencia Neff APRN-BC [] glucagon HCL 1 mg/mL injection 1 mg, 1 mg, IM, see admin instructions, Inocencia Neff APRN-BC dextrose 5 % - sodium chloride 0.9 % infusion, , IV, see admin instructions, Inocencia Neff APRN-BC, Last Rate: 40 mL/hr at 07/09/25 0629, Rate Verify at 07/09/25 0629 hydrALAZINE (APRESOLINE) 20 mg/mL injection 10 mg, 10 mg, IV, every 6 hours PRN, Inocencia Neff APRN-BC, 10 mg at 07/09/25 1441 dexmedeTOMIDine in dextrose 5% (PRECEDEX) 400 mcg/100 mL (4 mcg/mL) infusion, 0-1.5 mcg/kg/hr, IV, titrate, Inocencia Neff APRN-BC, Last Rate: 10 mL/hr at 07/09/25 0629, 0.8 mcg/kg/hr at 07/09/25 0629 ondansetron (ZOFRAN) 4 mg/2 mL injection 4 mg, 4 mg, IV, every 6 hours PRN, Inocencia Neff APRN-BC, 4 mg at 07/09/25 1049 norepinephrine bitartrate-D5W (LEVOPHED) 8 mg/250 mL (32 mcg/mL) infusion, 0-0.2 mcg/kg/min, IV, titrate, Christianne Haley NP, Stopped at 07/08/25 2211 [COMPLETED] lactated ringers bolus solution 1,000 mL, 1,000 mL, IV, ONE time only, Christianne Haley NP, Stopped at 07/09/25 0005 TECHNICAL SUMMARY: Prolonged video monitoring EEG study performed with standard 10-20 electrodes. Data are recorded using an [email or web address] digital EEG machine. ARTIFACTS: yes INTERRUPTIONS: Disconnected from 0826 to 1337 and [id number] EEG DETAILS: The patient's video portion was simultaneously reviewed as appropriate with the patient's EEG recording. EEG BACKGROUND: Posterior dominant rhythm: fairly well-modulated, 7 Hz, symmetric, synchronous, reactive, background of overall fair organization with frequent polymorphic admixed diffuse delta and theta activity, in addition to waveforms with triphasic morphology Reactivity: present: yes Variability: present: yes ABNORMALITIES: yes EPILEPTIFORM ABNORMALITIES: no definite SEIZURE: no MARKED EVENTS: no SLEEP: Stage II sleep is identified: no ACTIVATION: Hyperventilation: not performed Photic stimulation: not performed SUMMARY OF FINDINGS: Frequent polymorphic generalized delta/theta [slow] activity Occasional generalized triphasic morphology INTERPRETATION: This EEG is indicative of mild to moderate bilateral nonspecific cerebral dysfunction. The triphasic morphology is often seen with metabolic or toxic disorders. There were no definite epileptiform discharges or electrographic seizures. Interpreting physician: Shayy Brannon MD 07/09/2025 5:34 PM Maritza Chauhan MD NEUROLOGY ORDERABLES Edited Resu lt - Final * DIRECT ANTIGLOBULIN TEST W/REFLEX (07/09/2025 2:01 PM CDT) DIRECT ANTIGLOBULIN POLY Negative 07/10/2025 3:14 PM CDT [facility] Blood Venipuncture / Unknown 07/09/2025 2:01 PM CDT 07/10/2025 2:01 PM CDT Nava Quiros NP BLOOD BANK ORDERABLES Milvia staton Result [facility] CLIA#[id number] [address] [place] [id number], [place] [phone] * ECHO COMPLETE W BUBBLE STUDY (07/09/2025 12:25 PM CDT) EJECTION FRACTION 60 INTERFACE SYSTEM 07/09/2025 9:41 AM CDT Narrative INTERFACE SYSTEM - 07/10/2025 7:56 AM CDT [facility] Cardiovascular Services Echocardiography Laboratory [address] [place] [id number] Transthoracic Echocardiography Patient: Viola Ennis Study ECHO COMPLETE Nazanin Herzog ID: Gender: F : 1960 Age: 65 Room: [facility] Study 07/09/2025 Pt Inpatient Date: Status: Study 09:41:08 AM CSN #: [id number] Time: Ordering:Inocencia Neff Retail District Manager: ADAM Indications and History: Cardiac Etiology: General; TIA/stroke. Summary and Conclusion: - Left ventricle: The cavity size is normal. Wall thickness is normal. Global systolic function is normal. For Epic reporting: the left ventricular ejection fraction is 60%. Images are inadequate for LV wall motion assessment. Left ventricular diastolic function parameters are normal. - Right ventricle: The cavity size is normal. Systolic function is normal. The estimated peak pressure is 30mm Hg. - Atrial septum: Agitated saline contrast study in the baseline state, shows no zvhzv-[id number]-krdx shunt. After Valsalva, cannot exclude passage of 1-2 late bubbles. - Tricuspid valve: There is mild regurgitation. - Pericardium: A small pericardial effusion is identified along the right ventricular free wall. Procedure information: No prior study is available for comparison. Study status: Routine. Procedure: A transthoracic echocardiogram was performed. Image quality was adequate. Scanning was performed from the parasternal, apical, subcostal, and suprasternal notch acoustic windows. Intravenous contrast (agitated saline) was administered to identify R-L intracardiac shunting. There were no complications. There were no contrast reactions. Study components: M-mode, 2D, complete spectral Doppler, and color Doppler. Weight: 52kg. Weight: 114.6lb. Blood pressure: 147/74 Study date: 07/09/2025. Study time: 09:41 AM. Location: ICU/CCU Cardiac Anatomy: LEFT VENTRICLE: The cavity size is normal. Wall thickness is normal. Global systolic function is normal. For Epic reporting: the left ventricular ejection fraction is 60%. Images are inadequate for LV wall motion assessment. The longitudinal strain is -16.6% (Normal range is -18 to -25). Left ventricular diastolic function parameters are normal. RIGHT VENTRICLE: The cavity size is normal. Systolic function is normal. The estimated peak pressure is 30mm Hg. LEFT ATRIUM: The atrium is normal in size. RIGHT ATRIUM: The atrium is normal in size. ATRIAL SEPTUM: Not well visualized. Agitated saline contrast study in the baseline state, shows no enill-hn-ldxj shunt. After Valsalva, cannot exclude passage of 1-2 late bubbles. AORTIC VALVE: The valve is trileaflet. Mobility is not restricted. There is no stenosis. There is no significant regurgitation. MITRAL VALVE: Mobility is not restricted. No evidence for prolapse. There is no evidence for stenosis. There is no significant regurgitation. TRICUSPID VALVE: Mobility is unrestricted. There is no evidence for stenosis. There is mild regurgitation. PULMONIC VALVE: Not well visualized. There is no evidence for stenosis. There is trace regurgitation. The peak systolic gradient is 4mm Hg. PERICARDIUM: A small pericardial effusion is identified along the right ventricular free wall. AORTA: Aortic root: The root is not dilated. Measurements Left ventricle Value Left atrium Value GLS, 2D -16.6 % AP dim, ES 3.0 cm SHARA, LAX 4.3 cm Area ES, A4C 16 cm^2 ESD, LAX 2.7 cm SI dim, A2C 3.7 cm FS, LAX 37 % Vol, ES, 1-p A4C 39 ml FS, LAX chord 37 % Vol, ES, 1-p A2C 27 ml ESD major ax, A4C 6.7 cm SHARA minor ax, A4C 6.7 cm Right atrium Value VANESSA, A4C 26.9 cm^2 Area, ES, A4C 12 cm^2 LEILA, A4C 14.9 cm^2 FAC, A4C 45 % Aortic valve Value SHARA major ax, A2C 8.1 cm Mean v, S 78.2 cm/sec VANESSA, A2C 25.7 cm^2 VTI, S 26.3 cm LEILA, A2C 15.4 cm^2 Accel time 84 ms FAC, A2C 40 % Mean grad, S 3 mm Hg IVS, ED 0.9 cm LVOT/AV, VTI ratio 1.18 ESD 2.7 cm LESLIE, VTI 4.08 cm^2 PW, ED 0.9 cm IVS/PW, ED 0.98 Mitral valve Value EDV 84 ml Mean v, D 54.7 cm/sec ESV 27 ml Peak E 71.6 cm/sec EF 68 % Peak A 62.7 cm/sec SV 107 ml VTI leaflet coapt 23.0 cm EDV, 1-p A2C 64 ml MiV/LVOT VTI 0.7 ESV, 1-p A2C 36 ml Decel slope 342 cm/s^2 EF, 1-p A2C 56 % Decel time 218 ms SV, 1-p A2C 57 ml PHT 74 ms EDV, 1-p A4C 72 ml Mean grad, D 1 mm Hg ESV, 1-p A4C 27 ml Peak grad, D 2 mm Hg EF, 1-p A4C 63 % Peak E/A ratio 1.1 SV, 1-p A4C 61 ml E-VTI 23.0 cm EDV, 2-p 69 ml A-VTI 23.0 cm ESV, 2-p 28 ml VTI E/A 1.0 EF, 2-p 59 % MVA 4.66 cm^2 SV, 2-p 41 ml MVA, PHT 2.97 cm^2 EDV, MM Teich. 84 ml MVA, LVOT cont 4.7 cm^2 EF, MM Teich. 68 % Chuy VTI 23.0 cm EF, MM on 2D Teich. 68 % Vena contracta width 2.7 cm E', lat chuy, TDI 10.4 cm/sec E/e', lat chuy, TDI 7 Pulmonic valve Value E', med chuy, TDI 8.2 cm/sec Peak v, S 97.4 cm/sec E/e', med chuy, TDI 9 Peak grad, S 4 mm Hg E', avg, TDI 9.3 cm/sec E/e', avg, TDI 8 Tricuspid valve Value TR vena contracta width 2.1 cm LVOT Value Peak RV-RA grad, S 27 mm Hg Diam, S 2.1 cm Area 3.5 cm^2 Aortic root Value Peak geraldine, S 132 cm/sec Root diam 2.7 cm VTI, S 31.0 cm S-T junct diam, ED 2.4 cm Peak grad, S 7 mm Hg SV 107 ml Ascending aorta Value AAo AP diam, S 3.3 cm Right ventricle Value SHARA, LAX 2.7 cm Descending aorta Value SHARA minor ax, A4C base 3.1 cm Victor M diam 2.0 cm SHARA minor ax, A4C mid 2.0 cm SHARA 2.7 cm TAPSE, 2D 1.7 cm TAPSE, MM 1.7 cm S' lateral 14.1 cm/sec Legend: (L) and (H) severiano values outside specified reference range. [facility] are accredited with the [facility] Accreditation Commission - Echocardiography. Prepared and Electronically Authenticated Ruben Tomas MD Confirmed 07/10/2025 07:56 Procedure Note Ruben Tomas MD - 07/10/2025 [facility] Cardiovascular Services Echocardiography Laboratory [address] [place] [id number] Transthoracic Echocardiography Patient: Viola Ennis Study CHRISTINE Herzog ID: Gender: F : 1960 Age: 65 Room: [facility] 07/09/2025 Pt Inpatient Date: Status: Study 09:41:08 AM [facility] #: [id number] Time: Ordering:Inocencia Neff Retail District Manager: ADAM Indications and History: Cardiac Etiology: General; TIA/stroke. Summary and Conclusion: - Left ventricle: The cavity size is normal. Wall thickness is normal.Global systolic function is normal. For Epic reporting: the left ventricular ejection fraction is 60%. Images are inadequate for LV wall motion assessment. Left ventricular diastolic function parameters are normal. - Right ventricle: The cavity size is normal. Systolic function is normal.The estimated peak pressure is 30mm Hg. - Atrial septum: Agitated saline contrast study in the baseline state,shows no lgeaa-za-ommd shunt. After Valsalva, cannot exclude passage of 1-2late bubbles. - Tricuspid valve: There is mild regurgitation. - Pericardium: A small pericardial effusion is identified along theright ventricular free wall. Procedure information: No prior study is available for comparison.Study status: Routine. Procedure: A transthoracic echocardiogram wasperformed. Image quality was adequate. Scanning was performed from the parasternal, apical, subcostal, and suprasternal notch acoustic windows. Intravenous contrast (agitated saline) was administered to identify R-L intracardiac shunting. There were no complications. There were no contrast reactions. Study components: M-mode, 2D, complete spectral Doppler, and colorDoppler. Weight: 52kg. Weight: 114.6lb. Blood pressure: 147/74 Studydate: 07/09/2025. Study time: 09:41 AM. Location: ICU/CCU Cardiac Anatomy: LEFT VENTRICLE: The cavity size is normal. Wall thickness is normal.Global systolic function is normal. For Epic reporting: the left ventricularejection fraction is 60%. Images are inadequate for LV wall motion assessment.The longitudinal strain is -16.6% (Normal range is -18 to -25). Leftventricular diastolic function parameters are normal. RIGHT VENTRICLE: The cavity size is normal. Systolic function is normal.The estimated peak pressure is 30mm Hg. LEFT ATRIUM: The atrium is normal in size. RIGHT ATRIUM: The atrium is normal in size. ATRIAL SEPTUM: Not well visualized. Agitated saline contrast study inthe baseline state, shows no paxvn-hh-sqwl shunt. After Valsalva, cannotexclude passage of 1-2 late bubbles. AORTIC VALVE: The valve is trileaflet. Mobility is not restricted. Thereis no stenosis. There is no significant regurgitation. MITRAL VALVE: Mobility is not restricted. No evidence for prolapse.There is no evidence for stenosis. There is no significant regurgitation. TRICUSPID VALVE: Mobility is unrestricted. There is no evidence for stenosis. There is mild regurgitation. PULMONIC VALVE: Not well visualized. There is no evidence forstenosis. There is trace regurgitation. The peak systolic gradient is 4mm Hg. PERICARDIUM: A small pericardial effusion is identified along the right ventricular free wall. AORTA: Aortic root: The root is not dilated. Measurements Left ventricle Value Left atrium Value GLS, 2D -16.6 % AP dim, ES 3.0 cm SHARA, LAX 4.3 cm Area ES, A4C 16cm^2 ESD, LAX 2.7 cm SI dim, A2C 3.7 cm FS, LAX 37 % Vol, ES, 1-p A4C 39 ml FS, LAX chord 37 % Vol, ES, 1-p A2C 27 ml ESD major ax, A4C 6.7 cm SHARA minor ax, A4C 6.7 cm Right atrium Value VANESSA, A4C 26.9 cm^2 Area, ES, A4C 12cm^2 LEILA, A4C 14.9 cm^2 FAC, A4C 45 % Aortic valve Value SHARA major ax, A2C 8.1 cm Mean v, S 78.2cm/sec VANESSA, A2C 25.7 cm^2 VTI, S 26.3 cm LEILA, A2C 15.4 cm^2 Accel time 84 ms FAC, A2C 40 % Mean grad, S 3 mmHg IVS, ED 0.9 cm LVOT/AV, VTI ratio 1.18 ESD 2.7 cm LESLIE, VTI 4.08cm^2 PW, ED 0.9 cm IVS/PW, ED 0.98 Mitral valve Value EDV 84 ml Mean v, D 54.7cm/sec ESV 27 ml Peak E 71.6cm/sec EF 68 % Peak A 62.7cm/sec SV 107 ml VTI leaflet coapt 23.0 cm EDV, 1-p A2C 64 ml MiV/LVOT VTI 0.7 ESV, 1-p A2C 36 ml Decel slope 342cm/s^2 EF, 1-p A2C 56 % Decel time 218 ms SV, 1-p A2C 57 ml PHT 74 ms EDV, 1-p A4C 72 ml Mean grad, D 1 mmHg ESV, 1-p A4C 27 ml Peak grad, D 2 mmHg EF, 1-p A4C 63 % Peak E/A ratio 1.1 SV, 1-p A4C 61 ml E-VTI 23.0 cm EDV, 2-p 69 ml A-VTI 23.0 cm ESV, 2-p 28 ml VTI E/A 1.0 EF, 2-p 59 % MVA 4.66cm^2 SV, 2-p 41 ml MVA, PHT 2.97cm^2 EDV, MM Teich. 84 ml MVA, LVOT cont 4.7cm^2 EF, MM Teich. 68 % Chuy VTI 23.0 cm EF, MM on 2D Teich. 68 % Vena contracta width 2.7 cm E', lat chuy, TDI 10.4 cm/sec E/e', lat chuy, TDI 7 Pulmonic valve Value E', med chuy, TDI 8.2 cm/sec Peak v, S 97.4cm/sec E/e', med chuy, TDI 9 Peak grad, S 4 mmHg E', avg, TDI 9.3 cm/sec E/e', avg, TDI 8 Tricuspid valve Value TR vena contracta width 2.1 cm LVOT Value Peak RV-RA grad, S 27 mmHg Diam, S 2.1 cm Area 3.5 cm^2 Aortic root Value Peak geraldine, S 132 cm/sec Root diam 2.7 cm VTI, S 31.0 cm S-T junct diam, ED 2.4 cm Peak grad, S 7 mm Hg SV 107 ml Ascending aorta Value AAo AP diam, S 3.3 cm Right ventricle Value SHARA, LAX 2.7 cm Descending aorta Value SHARA minor ax, A4C base 3.1 cm Victor M diam 2.0 cm SHARA minor ax, A4C mid 2.0 cm SHARA 2.7 cm TAPSE, 2D 1.7 cm TAPSE, MM 1.7 cm S' lateral 14.1 cm/sec Legend: (L) and (H) severiano values outside specified reference range. [facility] are accredited with theIntersocietal Accreditation Commission - Echocardiography. Prepared and Electronically Authenticated Ruben Tomas MD Confirmed 07/10/2025 07:56 Inocencia Neff ONLINE ADVERTISING MANAGER- [place] ORDERABLES Milvia l Result INTERFACE SYSTEM Refer to clinic/hospital department * TRANSFUSE RED BLOOD CELLS (07/09/2025 11:53 AM CDT) Result [facility] Rudi Varma MD BLOOD TRANSFUSION ORDERABLES Final Result * MRI BRAIN WO CONTRAST (07/09/2025 9:29 AM CDT) Anatomical Region Laterality Modality Head Magnetic Resonan ce 07/09/2025 9:29 AM CDT Impressions 07/09/2025 10:03 AM CDT IMPRESSION: Please see below. Exam: MRI BRAIN WO CONTRAST Date/Time of Exam: 07/09/2025 9:29 AM Reason For Exam: Mental status change, unknown cause. Diagnosis: See Reason for Exam. Technique: Multiplanar, multisequence MR images were obtained through the brain without contrast. Comparison: None. FINDINGS: Examination is limited due to external artifact. Midline structures appear within normal limits. Ventricles nondilated. Mild cerebral cortical and cerebellar volume loss. Moderate leukoaraiosis underlying. No evidence of acute ischemic insult, mass lesion or hemorrhage. Major intracranial arterial flow voids are preserved. Orbits grossly unremarkable. Minor paranasal sinus and mastoid inflammatory change. IMPRESSION: Artifactually limited study. No acute pathology. Mild volume loss and moderate leukoaraiosis underlying. Narrative Procedure Note Jax Ballesteros DO - 07/09/2025 IMPRESSION: Please see below. Exam: MRI BRAIN WO CONTRAST Date/Time of Exam: 07/09/2025 9:29 AM Reason For Exam: Mental status change, unknown cause. Diagnosis: See Reason for Exam. Technique: Multiplanar, multisequence MR images were obtained through the brain without contrast. Comparison: None. FINDINGS: Examination is limited due to external artifact. Midline structures appear within normal limits. Ventricles nondilated. Mild cerebral cortical and cerebellar volume loss. Moderate leukoaraiosis underlying. No evidence of acute ischemic insult, mass lesion or hemorrhage. Major intracranial arterial flow voids are preserved. Orbits grossly unremarkable. Minor paranasal sinus and mastoid inflammatory change. IMPRESSION: Artifactually limited study. No acute pathology. Mild volume loss and moderate leukoaraiosis underlying. us Maritza Chauhan MD MR ORDERABLES Final Result * PERIPHERAL BLOOD SMEAR PATHOLOGY INTERP (07/09/2025 7:44 AM CDT) PERIPHERAL BLOOD SMEAR INTERP See Interpretation Below 07/10/2025 10:19 AM CDT [facility] INTERPRETED BY: Calvin De La Garza MD 07/10/2025 10:19 AM CDT [facility] Blood Venipuncture / Unknown 07/09/2025 7:44 AM CDT 07/09/2025 7:47 AM CDT Narrative [facility] - 07/10/2025 10:19 AM CDT CLINICAL INFORMATION: 65-year-old female with acute hypoxic respiratory failure, acute metabolic encephalopathy, and thrombocytopenia. DIAGNOSIS: PERIPHERAL BLOOD SMEAR: - Normocytic normochromic anemia with small numbers of schistocytes (approximately 1.3 per 100x high power field). - Moderate thrombocytopenia with occasional larger platelets. - Mild absolute lymphocytopenia. COMMENT: Schistocytes can be seen in several conditions including sepsis/DIC, severe hypertension, thrombotic thrombocytopenia purpura (TTP), hemolytic uremic syndrome (HUS), valvular heart disease or prosthetic heart valves (due to mechanical hemolysis), and metastatic carcinoma. If there is clinical suspicion for a severe microangiopathic hemolytic process such as TTP, consider additional testing including LDH, haptoglobin, and [id number] activity. Correlation with clinical and other laboratory data is required. MORPHOLOGY: WBCs: Mild absolute lymphocytopenia. WBCs are mature. Overt dysplastic changes or blasts are not observed. RBCs: Normocytic normochromic anemia with anisocytosis and small numbers of schistocytes, approximately 1.3 per 100x high power field (averaged over 10 hpf). PLATELETS: Decreased, with with occasional larger platelets. Clumps not seen. Findings communicated to Dr. Mittal on 07/10/25 at 10:19 am. Reviewed by Martell De La Garza MD Gin Hernández [employer] [facility] HEMATOLOGY ORDERABLES Final R esult Performing Organization Address City/[facility]/ZIP Co de Phone Number [facility] CLIA # [id number] [address] [place] [address] * BLOOD BANK AB IDENT (07/09/2025 5:52 AM CDT) Pathologist [facility] ANTIBODY #1 Anti-D 07/09/2025 9:24 AM CDT [facility] Blood Venipuncture / Unknown 07/09/2025 5:52 AM CDT 07/09/2025 5:55 AM CDT Rudi Varma MD BLOOD BANK ORDERAB LES Final Result Performing Organization Address [facility] Co de Phone Number [facility] [place] CLIA#[id number] [address] [place] [address], * TYPE AND SCREEN (07/09/2025 5:52 AM CDT) Pathologist [facility] ABO GROUP O 07/09/2025 9:21 AM CDT [facility] [place] RH (D) TYPE Negative 07/09/2025 9:21 AM CDT [facility] [place] ANTIBODY SCREEN Positive 07/09/2025 9:21 AM CDT [facility] [place] Blood Venipuncture / Unknown 07/09/2025 5:52 AM CDT 07/09/2025 5:55 AM CDT Rudi Varma MD BLOOD BANK ORDERAB LES Edited Result - Final Performing Organization Address [facility]/ZIP Co de Phone Number [facility] [place] CLIA#[id number] [address] [place] [address], * PREPARE RED BLOOD CELLS (07/09/2025 5:42 AM CDT) COMPONENT TYPE [id number] [facility] [place] COMPONENT IDENTIFICATION [id number] [facility] [place] UNIT ABO O [facility] [place] UNIT RH NEG [facility] [place] CROSSMATCH Compatible [facility] [place] COMPONENT STATUS Transfused ME [facility] [place] COMPONENT EXPIRATION DATE/TIME [phone] [facility] [place] COMPONENT CODING SYSTEM [id number] [facility] [place] VOLUME, BLOOD PRODUCT 350 [facility] [place] Other, specify 07/09/2025 5: 42 AM CDT Rudi Varma MD LAB TRANSFUSION OR DERABLES Edited Result - Final Performing Organization Address [facility] Co de Phone Number [facility] [place] CLIA#[id number] [address] [place] [address], * (ABNORMAL) DRUG SCREEN, URINE (07/09/2025 12:30 AM CDT) AMPHETAMINE QUAL, URINE Negative Negative 07/09/2025 1:18 AM CDT [facility] BARBITURATE QUAL, URINE Negative Negative 07/09/2025 1:18 AM CDT [facility] BENZODIAZEPINE QUAL, URINE Negative Negative 07/09/2025 1:18 AM CDT [facility] COCAINE QUAL URINE Negative Negative 07/09/2025 1:18 AM CDT [facility] OPIATE QUAL, URINE Negative Negative 07/09/2025 1:18 AM CDT [facility] CANNABINOIDS QUAL, URINE Presumptive Positive(A) Negative 07/09/2025 1:18 AM CDT [facility] OXYCODONE QUAL, URINE Negative Negative 07/09/2025 1:18 AM CDT [facility] METHADONE QUAL, URINE Negative Negative 07/09/2025 1:18 AM CDT [facility] FENTANYL QUAL, URINE Presumptive Positive(A) Negative 07/09/2025 1:18 AM CDT [facility] CREATININE, URINE 17.1(L) 29.0 - 226.0 mg/dL 07/09/2025 1:18 AM T [facility] Comment:Reference Range vari es with fluid intake and diet. Urine URINE SPECIMEN OBTAINED BY CLEAN CATCH PROCEDURE / Unknown Collection / Unknown 07/09/2025 12:30 AM CDT 07/09/2025 12:34 AM CDT Narrative [facility] - 07/09/2025 1:18 AM CDT When Urine Creatinine is <20 mg/dL, the sample may have been diluted. Further testing with a new sample is recommended, if indicated. This test is a qualitative screen. The presumptive positive results should not be used for legal purposes. If confirmation of results is desired, the lab must be contacted without delay. Drug Ref. Range Screening Threshold Amphetamines Negative 500 ng/mL Barbiturates Negative 200 ng/mL Benzodiazepines Negative 100 ng/mL Cannabinoids Negative 50 ng/mL Cocaine Metabolite Negative 300 ng/mL Opiate Negative 300 ng/mL Oxycodone Negative 100 ng/mL Methadone Negative 300 ng/mL Fentanyl Negative 5 ng/mL us Maritza Chauhan MD URINE ORDERABLES Final Result [id number] [address] [place] [address] [place] [address] * (ABNORMAL) URINALYSIS WITH REFLEX MICROSCOPIC (07/09/2025 12:30 AM CDT) COLOR UA Pale Yellow Pale to Dark Yellow 07/09/2025 12:44 AM T [facility] CLARITY UA Clear Clear 07/09/2025 12:44 AM T [facility] SPECIFIC GRAVITY UA 1.012 1.003 - 1.035 07/09/2025 12:44 AM T [facility] PH UA 7.0 5.0 - 8.0 07/09/2025 12:44 AM T [facility] LEUKOCYTE ESTERASE UA Negative Negative 07/09/2025 12:44 AM T [facility] NITRITE UA Negative Negative 07/09/2025 12:44 AM T [facility] PROTEIN UA 1+(A) Negative 07/09/2025 12:44 AM T [facility] GLUCOSE UA Negative Negative 07/09/2025 12:44 AM T [facility] KETONES UA Negative Negative 07/09/2025 12:44 AM [facility] UROBILINOGEN UA <2.0 <2.0 mg/dL 12:44 AM T [facility] BILIRUBIN UA Negative Negative 07/09/2025 12:44 AM [facility] BLOOD UA 2+(A) Negative 07/09/2025 12:44 AM T [facility] WBC UA 0-2 0 - 2 /hpf 07/09/2025 12:44 AM T [facility] RBC UA 11-25(A) 0 - 2 /hpf 07/09/2025 12:44 AM T [facility] BACTERIA UA Negative Negative /hpf 07/09/2025 12:44 AM T [facility] EPITHELIAL CELLS, URINE 0-5 0 - 5 /hpf 07/09/2025 12:44 AM [facility] Urine URINE SPECIMEN OBTAINED BY CLEAN CATCH PROCEDURE / Unknown Collection / Unknown 07/09/2025 12:30 AM CDT 07/09/2025 12:34 AM CDT Inocencia Neff ONLINE ADVERTISING MANAGER-BC URINE ORDERABLES Fin al Result [facility] CLIA # [id number] [address] [place] [address] * BLOOD CULTURE (07/08/2025 8:25 PM CDT) Only the most recent of2 resultswithin the time period is included. [facility] BLOOD CULTURE No growth 07/13/2025 9:40 PM CDT [facility] Blood (Peripheral) Venipuncture / Unknown 07/08/2025 8:25 PM CDT 07/08/2025 8:30 PM CDT Narrative [facility] - 07/13/2025 9:40 PM CDT Specimen processed with suboptimal blood volume collected. us Inocencia REYNOLDS MICROBIOLOGY - GENER AL ORDERABLES Final Result Performing Organization Address City/[facility]/ZIP Co de Phone Number [facility] CLIA # [id number] [address] [address] [place] [address] * AMMONIA LEVEL (07/08/2025 8:25 PM CDT) [facility] AMMONIA 25.0 11.0 - 51.0 umol/L 07/08/2025 8:56 PM CDT [facility] Blood, venous Venipuncture / Unknown 07/08/2025 8:25 PM CDT 07/08/2025 8:27 PM CDT us Maritza Chauhan MD CHEMISTRY ORDERABLES Final Resul t Performing Organization Address City/[facility]/ZIP Co de Phone Number [facility] CLIA # [id number] [address] [address] [place] [address] * EKG 12-LEAD (07/08/2025 6:37 PM CDT) 07/08/2025 6:37 PM CDT Narrative INTERFACE SYSTEM - 07/09/2025 2:[address] [address] Test Date: 2025-07-08 Pat Name: [facility] Department: 12 Room: [address] [place] [address] Gender: Female 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1960 Requested By: Order Number: [id number] Reading MD: Rajani Greenwood Measurements Intervals [place] Rate: 82 P: 84 MN: 130 QRS: 24 QRSD: 66 T: 71 QT: 360 QTc: 420 Interpretive Statements Normal sinus rhythm Low voltage QRS Borderline ECG Electronically Signed On 07-09-2025 14:26:55 CDT by Rajani Greenwood Procedure Note Provider, Historical - 07/09/[address] [address] Test Date: 2025-07-08 Pat Name: [facility] Department: 12 Room: [address] [place] [address] Gender: Female 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1960 Requested By: Order Number: [id number] Reading : Rajani Greenwood Measurements Intervals [place] Rate: 82 P: 84 MN: 130 QRS: 24 QRSD: 66 T: 71 QT: 360 QTc: 420 Interpretive Statements Normal sinus rhythm Low voltage QRS Borderline ECG Electronically Signed On 07-09-2025 14:26:55 CDT by Rajani Greenwood Inocencia Neff [facility] ECG ORDERABLES Milvia l Result INTERFACE SYSTEM Refer to clinic/hospital department * TSH (07/08/2025 6:01 PM CDT) TSH 2.79 0.27 - 4.20 uIU/mL 07/08/2025 7:01 PM CDT [facility] Blood Venipuncture / Unknown 07/08/2025 6:01 PM CDT 07/08/2025 6:21 PM CDT us Maritza Chauhan MD CHEMISTRY ORDERABLES Final Resul t [facility] CLIA # [id number] [address] [address] * PROTIME-INR (07/08/2025 6:00 PM CDT) Only the most recent of2 resultswithin the time period is included. [facility] PROTIME 14.9 12.7 - 14.9 Seconds 07/08/2025 6:50 PM CDT [facility] INR 1.1 0.8 - 1.2 07/08/2025 6:50 PM CDT [facility] Blood Venipuncture / Unknown 07/08/2025 6:00 PM CDT 07/08/2025 6:22 PM CDT Narrative [facility] - 07/08/2025 6:50 PM CDT Expected Values for INR: DVT/PE Goal INR 2.5; range 2.0 - 3.0 Valve Replacement Tissue Goal INR 2.5; range 2.0 - 3.0 Valve Replacement Mechanical Goal INR 3.0; range 2.5 - 3.5 POST-OK Goal INR 2.5; range 2.0 - 3.0 or Goal INR 3.0; range 2.5 - 3.5 Atrial Fibrillation Goal INR 2.5; range 2.0 - 3.0 Ischemic Stroke Goal INR 2.5; range 2.0 - 3.0 us Inocencia Neff ONLINE ADVERTISING MANAGER- HEMATOLOGY ORDERABLE S Final Result [facility] CLIA # [id number] [facility] [address] * PNEUMONIA PATHOGEN PCR PANEL (07/08/2025 5:56 PM CDT) Pneumonia Pathogen PCR Panel NOT DETECTED No nucleic acids detected. 07/08/2025 7:18 PM CDT [facility] Sputum SPUTUM SPECIMEN OBTAINED BY ASPIRATION / Unknown Collection / Unknown 07/08/2025 5:56 PM CDT 07/08/2025 5:59 PM CDT Narrative [facility] - 07/08/2025 7:18 PM CDT NOTE: Per the ecological technical officer, this current lot of reagent may be insensitive for the full detection of adenoviruses. If adenovirus is within the differential diagnosis, the specimen may be submitted to a reference laboratory for further testing. If desired, order [id number] Lab Test, stating Adenovirus by PCR testing in the ordering comment and notify the Microbiology lab. A negative result does not exclude the possibility of infection. A semi-quantitative (copies/mL) result is provided for bacteria. This panel does not distinguish between nucleic acid from live or bacteria or virus. Culture is needed for recovery of bacterial isolates and antimicrobial susceptibility testing. The Film Array Pneumonia Pathogen PCR Panel is a multiplexed nucleic acid detection test for 33 targets of bacteria, viruses, and resistance markers in respiratory specimens that cause pneumonia. Bacteria: Acinetobacter calcoaceticus-baumannii complex Enterobacter cloacae complex Escherichia coli Haemophilus influenzae Klebsiella aerogenes Klebsiella oxytoca Klebsiella pneumoniae group Moraxella catarrhalis Proteus spp. Pseudomonas aeruginosa Serratia marcescens Staphylococcus aureus Streptococcus agalactiae Streptococcus pneumoniae Streptococcus pyogenes Atypical Bacteria: Chlamydia pneumoniae Legionella pneumophila Mycoplasma pneumoniae Viruses: Adenovirus Coronavirus (229E, OC43, HKU1, NL63) Human Metapneumovirus Human Rhinovirus/Enterovirus Influenza A Influenza B Parainfluenza Virus Respiratory Syncytial Virus Antimicrobial Resistance Genes: CTX-M IMP KPC NDM OXA-48-like VIM mecA/C and MREJ us Inocencia Neff ONLINE ADVERTISING MANAGER-BC MICROBIOLOGY - GENER AL ORDERABLES Final Result [facility] CLIA # [id number] [address] [address] * SPUTUM CULTURE WITH GRAM STAIN (07/08/2025 5:56 PM CDT) CULTURE No pathogens isolated. Normal respiratory elizabeth reduced. 07/10/2025 8:02 AM CDT [facility] GRAM STAIN Smear contains </=10 squamous epithelial cells per low power field 07/10/2025 8:02 AM CDT [facility] GRAM STAIN >25 PMN WBC/LPF 8:02 AM CDT [facility] GRAM STAIN No organisms observed 07/10/2025 8:02 AM CDT [facility] Sputum SPUTUM SPECIMEN OBTAINED BY ASPIRATION / Unknown Collection / Unknown 07/08/2025 5:56 PM CDT 07/08/2025 5:59 PM CDT Inocencia Kramergomery ONLINE ADVERTISING MANAGER-BC MICROBIOLOGY - GENER AL ORDERABLES Final Result [facility] CLIA # [id number] [facility] [address] [place] [address] * XR CHEST PA OR AP 1 VW (07/08/2025 5:15 PM CDT) Anatomical Region Laterality Modality Chest Computed Radiogr aphy 07/08/2025 5:15 PM CDT Impressions 07/08/2025 5:41 PM CDT Impression: 1. Tubes and lines show good placement. 2. No evidence of infiltrates. Narrative 07/08/2025 5:41 PM CDT Exam: XR CHEST PA OR AP 1 VW Date/Time of Exam: 07/08/2025 5:15 PM Reason For Exam: Tube Placement Diagnosis: See Reason for Exam An endotracheal tube is in place with tip 3 cm above the milady. Nasogastric tube is in place with tip in the gastric fundus. A right internal jugular central line is in place with tip in the superior vena cava. The heart size is normal. The lungs are clear. No pneumothorax is seen. Procedure Note Anshu Couch MD - 07/08/2025 Exam: XR CHEST PA OR AP 1 VW Date/Time of Exam: 07/08/2025 5:15 PM Reason For Exam: Tube Placement Diagnosis: See Reason for Exam An endotracheal tube is in place with tip 3 cm above the milady. Nasogastric tube is in place with tip in the gastric fundus. A right internal jugular central line is in place with tip in the superior vena cava. The heart size is normal. The lungs are clear. No pneumothorax is seen. Impression: 1. Tubes and lines show good placement. 2. No evidence of infiltrates. Inocencia Neff [facility] DIAGNOSTIC IMAGING O RDERABLES Final Result * POC LACTIC ACID (07/08/2025 5:01 PM CDT) Pathologist [facility] LACTIC ACID POC 1.2 <=2.0 mmol/L 07/08/2025 5:01 PM CDT [facility] SPECIMEN SOURCE, GASES POC Arterial 07/08/2025 5:01 PM CDT [facility] PUN SITE POC ART PUNCT 07/08/2025 5:01 PM CDT [facility] Blood 07/08/2025 5:01 PM CDT 07/08/2025 5:03 PM CDT Narrative [facility] - 07/08/2025 5:01 PM CDT References ranges displayed are for Arterial samples. Stormy Mittal MD POINT OF CARE TESTING Final Resu lt [facility] CLIA # [id number] [address] [address] * (ABNORMAL) BLOOD GAS ARTERIAL (07/08/2025 5:01 PM CDT) [facility] PH BLOOD POC 7.45 7.35 - 7.45 07/08/2025 5:01 PM CDT [facility] PCO2 POC 29(L) 35 - 45 mm Hg 07/08/2025 5:01 PM CDT [facility] PO2 POC 165(H) 80 - 105 mm Hg 07/08/2025 5:01 PM [facility] HCO3 (CALC) POC 20(L) 22 - 26 mmol/L 07/08/2025 5:01 PM [facility] HEMOGLOBIN POC 10.9(L) 12.0 - 18.0 g/dL 07/08/2025 5:01 PM [facility] BASE EXCESS POC -4(L) -2 - 3 mmol/L 07/08/2025 5:01 PM [facility] O2 SATURATION POC 100(H) 95 - 98 % 025 5:01 PM [facility] SODIUM POC 135(L) 138 - 146 mmol/L 07/08/2025 5:01 PM [facility] POTASSIUM POC 3.8 3.5 - 4.9 mmol/L 07/08/2025 5:01 PM [facility] HEMATOCRIT POC 33(L) 38 - 51 % 07/08/2025 5:01 PM [facility] PH TEMP CORRECT 7.45 7.35 - 7.45 07/08/2025 5:01 PM [facility] PCO2 TEMP CORRECT 29(L) 35 - 45 mm Hg 07/08/2025 5:01 PM [facility] PO2 TEMP CORRECT 165(H) 80 - 105 mm Hg 07/08/2025 5:01 PM [facility] SPECIMEN SOURCE, GASES POC Arterial 07/08/2025 5:01 PM [facility] CALCIUM IONIZED POC 4.5(L) 4.8 - 5.2 mg/dL 07/08/2025 5:01 PM [facility] TCO2 (CALC) POC 21(L) 23 - 27 mmol/L 07/08/2025 5:01 PM [facility] FIO2 40.0 21.0 - 100.0 % 07/08/2025 5:01 PM [facility] Comment:FIO2 values reported <21.0 indicate O2 flow in Liters/minute. Values >/= 21.0 indicate percent O2. P/F RATIO POC 413 07/08/2025 5:01 PM CDT [facility] Comment: P/F Ratio Interpretation ARDS SEVERITY PaO2/FiO2 Mild 200-300 Moderate 100-200 Severe <100 PEEP POC 6 07/08/2025 5:01 PM CDT [facility] PUNC SITE POC ART PUNCT 07/08/2025 5:01 PM CDT [facility] Blood, arterial 07/08/2025 5 :01 PM CDT 07/08/2025 5:03 PM CDT Stormy Mittal MD ABG ORDERABLES Final Result [facility] CLIA # [id number] [address] [place] [address] from Last 3 Months Insurance MEDICAID [facility] Advance Directives For more information, please contact: [phone] * Full Code (Latest Code Status on File) Date Activated Date Inactivated Comments 07/10/2025 10:39 AM 07/15/2025 2:55 PM * Default Full Code - Needs Discussion Date Activated Date Inactivated Comments 07/08/2025 4:52 PM 07/10/2025 10:39 AM Care Teams Chain Offbearer Relationship Specialty Start Date End Date Non-Staff, Physician NO ADDRESS ON FILE PCP - General 04/15/12
--- NOTE | 2025-08-09 17:32 | CTR_ITS ---
PROCEDURE INFORMATION: Exam: CT Abdomen And Pelvis Without Contrast Exam date and time: 08/09/2025 6:53 PM Age: 65 years old Clinical indication: Prior surgery; Surgery date: 6+ months; Surgery type: Hyst, gb, spinal SX; PT presents with abdominal pain. PT states HX of UTI and recent sepsis dx in [facility]. ; Additional info: Rlq pain TECHNIQUE: Imaging protocol: Computed tomography of the abdomen and pelvis without contrast. Radiation optimization: All CT scans at this facility use at least one of these dose optimization techniques: automated exposure control; mA and/or kV adjustment per patient size (includes targeted exams where dose is matched to clinical indication); or iterative reconstruction. COMPARISON: CT abdomen pelvis wo con [id number] 07/02/2025 4:22 PM RADIATION DOSE METRICS: Total DLP (mGy-cm): 363.09 FINDINGS: Lungs: Mild left basilar atelectasis or scarring. Heart: Heart size is within normal limits. There is no pericardial effusion or pericardial thickening. Diaphragm: Mild elevation of the left hemidiaphragm. Liver: The liver is normal. No hepatic masses are identified. Gallbladder and biliary ducts: The gallbladder is surgically absent. Suggested moderate dilatation of the common bile duct measuring up to 12 mm, grossly stable compared to prior. Pancreas: The pancreas is normal. Spleen: The spleen is normal. Adrenal glands: The adrenal glands are normal. Kidneys and ureters: There is normal enhancement of the kidneys. No renal calcifications are identified. There is no hydronephrosis. Stomach and bowel: Mild retained colonic stool. There is no large or small bowel obstruction. There is no evidence of bowel wall thickening. Appendix: The appendix is not clearly visualized. There is no evidence of acute appendicitis. Intraperitoneal space: No inflammatory changes are identified. There is no free fluid or fluid collection seen. There is no pneumoperitoneum. Vasculature: Atherosclerotic calcifications of the aorta are present. No aneurysm is identified. Lymph nodes: No enlarged lymph nodes are identified. Urinary bladder: Moderate distension of the urinary bladder, similar compared to prior study. Reproductive: The uterus is absent. Bones/joints: Extensive postoperative changes to the thoracolumbar spine appear grossly stable. Though evaluation limited by artifact from extensive hardware. Soft tissues: The soft tissues are within normal limits. CT/CT abdomen pelvis wo con [id number] IMPRESSION: 1. Moderate distension of the urinary bladder, similar compared to prior study. Correlate with possible urinary retention in the setting of UTI. 2. No definitive evidence of acute intra-abdominal or pelvic process. 3. Other nonemergent findings above.
[2025-08-09 17:50] LABS: Glucose Urine UA Negative (Normal); Nitrate Urine Negative (Negative); Specific Gravity, Urine 1.009 (1.005-1.030)
[2025-08-09 17:56] LABS: Add Urine Microscopic? YES
--- NOTE | 2025-08-09 17:59 | W.ED.ABDPA2 ---
HPI - Abdominal Pain General: Chief Complaint: Abdominal Pain Stated Complaint: Abd pain Time Seen by Provider: 08/09/25 17:13 History of Present Illness: 65-year-old female with history of hypertension and prior urinary tract infection leading to sepsis presents after 1?2 days of lower abdominal/bladder pain and burning with urination. Reports feeling ?off,? weak, and anxious about elevated blood pressure. Denies chest pain, shortness of breath, cough, vomiting, or diarrhea. Pain localizes more to the right lower abdomen and is currently 7.5?8/10 but improving; prefers to avoid pain medications. Denies clear flank pain; notes chronic back pain due to spinal rods. Unsure about prior appendectomy; reports prior complete hysterectomy. No clear fever reported. Took home blood pressure medication this morning. Related Data Home Medications ?Medication ?Instructions ?Recorded ?Confirmed potassium gluconate 595 mg (99 mg) 595 mg PO TID@08,15,03/12/20 07/06/25 tablet vydfkuc-zkopwplkfdhfn-atloqnxg 250 1 tab PO Q6H PRN Pain 09/14/24 07/06/25 mg-250 mg-65 mg tablet (Excedrin Extra Strength) glycopyrrolate 1 mg tablet 1 mg PO TID 05/14/25 07/06/25 (Robinul) irbesartan 75 mg tablet 75 mg PO DAILY 07/06/25 07/06/25 omeprazole 20 mg capsule,delayed 20 mg PO DAILY 07/06/25 07/06/25 release Previous Rx's ?Medication ?Instructions ?Recorded baclofen 10 mg tablet See Rx Instructions .Route 12/19/24 .COMPLEX #360 tabs carvedilol 6.25 mg tablet (Coreg) 6.25 mg PO Q12H #180 tabs 12/19/24 fenofibrate micronized 134 mg 134 mg PO DAILY@15 #90 caps 12/19/24 capsule gabapentin 800 mg tablet 800 mg PO TID #360 tabs 12/19/24 levothyroxine 50 mcg tablet 50 mcg PO DAILY@1500 #90 tabs 12/19/24 linaclotide 145 mcg capsule 145 mcg PO BEDTIME #90 caps 12/19/24 (Linzess) paroxetine HCl 30 mg tablet 30 mg PO DAILY #90 tabs 12/19/24 syringe with needle 3 mL 25 gauge #5 ea 12/19/24 x 1 (BD Luer-Rae Syringe) terconazole 0.4 % vaginal cream 1 appful vaginal .at bedtime #45 06/27/25 grams Allergies Allergy/AdvReac Type Severity Reaction Status Date / Time atorvastatin (From Lipitor) Allergy Unknown known Verified 08/09/25 15:24 ezetimibe (From Zetia) Allergy Unknown unknown Verified 08/09/25 15:24 rosuvastatin (From Crestor) Allergy Unknown unknown Verified 08/09/25 15:24 Cupfrlg-PVN-JhT Reductase Allergy Unknown Unknown Verified 08/09/25 15:24 Inhibitor (Ifbbten-Ykh-Chb Reductase Inhibitor) Sulfa (Sulfonamide Allergy Unknown Unknown Verified 08/09/25 15:24 Antibiotics) sumatriptan (From Imitrex) Allergy Unknown known Verified 08/09/25 15:24 IV contrast dye Allergy ALGY-Anaphy Uncoded 08/09/25 15:24 laxis PFSH ED PFSH: Medical History Pneumonia COPD (chronic obstructive pulmonary disease) Dehydration Hyperkalemia Acute kidney injury superimposed on CKD Altered mental status Anxiety, generalized CHF (congestive heart failure), NYHA class III Constipation, slow transit 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 CAD (coronary artery disease) Vitamin B12 deficiency Essential (primary) hypertension Gastric reflux Fibromyalgia muscle pain Osteopenia of multiple sites Chronic bilateral low back pain with bilateral sciatica Vitamin D deficiency Mixed hyperlipidemia Adult onset hypothyroidism Hypotension, unspecified Neuropathic pain of both legs Surgical History History of back surgery History of cholecystectomy History of tonsillectomy History of hysterectomy Family History Other Arthritis Coronary artery disease involving k[place] coronary artery of [place] heart with unstable angina pectoris Diabetes Hypertension Thyroid disease Social History Smoking and tobacco/nicotine status: never used tobacco/nicotine Second hand smoke exposure: Yes Alcohol intake: never Substance/Drug Use: unknown Adopted: No Caregiver/support person: Yes Lives independently: No Household members: family Housing: House Marital status: service: No Current occupational status: disabled Do you think of yourself as: Straight/Heterosexual Current gender identity: Female Physical Exam Const: COMMON NORMALS: no acute distress, patient oriented x3 and alert HENMT: COMMON NORMALS: normocephalic and atraumatic HEAD & SCALP: normocephalic and atraumatic Eye: COMMON NORMALS: Equal, round and reactive pupils present, EOMs intact bilaterally and no scleral icterus PUPIL: Yes Equal, round and reactive pupils present Resp: COMMON NORMALS: normal respiratory effort and No retractions Cardio: COMMON NORMALS: regular rate, regular rhythm and No murmurs present (Cardio) RATE: regular rate RHYTHM: regular rhythm GI: COMMON NORMALS: Normal to inspection, nondistended, normoactive bowel sounds present and Soft to palpation PALPATION: Yes Soft to palpation OTHER: Right lower quadrant tenderness to palpation Neuro: COMMON NORMALS: patient oriented x3 SENSORIUM/ORIENTATION: Yes alert Skin: COMMON NORMALS: no rashes or lesions noted GENERAL SKIN EXAM: no rashes or lesions noted Course Vital Signs: Vital signs: Vital Signs Temperature 98.2 F 08/09/25 17:08 Pulse Rate 84 08/09/25 20:00 Respiratory Rate 16 08/09/25 17:08 Blood Pressure 188/105 08/09/25 20:00 Pulse Oximetry 92 08/09/25 20:00 Oxygen Delivery Me thod Room Air 08/09/25 19:00 MDM - Abdominal Pain Medical Decision Making 65-year-old female with hypertension and prior urinary tract infection/sepsis presents with 1?2 days of dysuria and lower abdominal pain, worse on the right, with weakness and concern about elevated blood pressure. Denies chest pain, shortness of breath, cough, nausea, vomiting, or diarrhea; chronic back pain due to spinal rods; unsure if appendix removed. Physical exam: Right lower quadrant tenderness to palpation; otherwise exam normal. Patient remained hemodynamically stable throughout ED course. Blood pressure is somewhat elevated but there is no evidence of endorgan damage on available exams. CT scan shows distended bladder but no evidence of acute appendicitis. Postvoid residual is greater than 700 mL. We had a long discussion about how urinary retention can cause infection and sepsis as well as kidney failure. Despite all this, she graciously declines both Zimmerman catheter placement and straight catheterization with instructions on how to straight cath at home. She plans to be seen by a urologist on August 23. I asked that she call the urology office and see whether they can see her more quickly than that. She knows that she is always welcome back in the emergency department if she reconsiders and would like to undergo catheterization or if she feels she is getting sick and can be rechecked for urinary infection and possible sepsis as she has suffered before. She shows good understanding and agrees to the plan. Lab Data 08/09/25 17:46 08/09/25 17:46 Labs/Radiology: Radiology Impressions Abdomen/Pelvis CT 08/09/25 17:32 IMPRESSION: 1. Moderate distension of the urinary bladder, similar compared to prior study. Correlate with possible urinary retention in the setting of UTI. 2. No definitive evidence of acute intra-abdominal or pelvic process. 3. Other nonemergent findings above. Laboratory Results WBC 5.47 10^3/uL (3.29-11.43) 08/09/25 17:46 RBC 4.54 10^6/uL (3.85-5.65) 08/09/25 17:46 Hgb 15.00 g/dL (11.27-16.99) 08/09/25 17:46 Hct 46.7 % (36-47) 08/09/25 17:46 MCV 102.9 fl (85-98) H 08/09/25 17:46 MCH 33.0 pg (27-33) 08/09/25 17:46 MCHC 32.1 g/dL (30-55) 08/09/25 17:46 RDW 14.9 % (12.1-15.1) 08/09/25 17:46 Plt Count 211 10^3/cmm (157-399) 08/09/25 17:46 MPV 10.8 fL (7.4-10.4) H 08/09/25 17:46 Neut % (Auto) 74.6 % 08/09/25 17:46 Lymph % (Auto) 16.6 % 08/09/25 17:46 [place] % (Auto) 7.5 % 08/09/25 17:46 Eos % (Auto) 0.4 % 08/09/25 17:46 Baso % (Auto) 0.4 % 08/09/25 17:46 Neut # (Auto) 4.08 10^3/uL (1.8-7.7) 08/09/25 17:46 Lymph # (Auto) 0.9 10^3/uL (0.8-4.8) 08/09/25 17:46 [place] # (Auto) 0.4 10^3/uL (0.2-0.9) 08/09/25 17:46 Eos # (Auto) 0.0 10^3/uL (0.0-0.8) 08/09/25 17:46 Baso # (Auto) 0.0 10^3/uL (0.0-0.1) 08/09/25 17:46 Nucleated RBC % (auto) 0 % 08/09/25 17:46 Nucleated RBCs # 0.0 /100WBC 08/09/25 17:46 Sodium 138 mmol/L (136-145) 08/09/25 17:46 Potassium 4.1 mmol/L (3.5-5.1) 08/09/25 17:46 Chloride 100 mmol/L (98-107) 08/09/25 17:46 Carbon Dioxide 25 mmol/L (22-29) 08/09/25 17:46 Anion Gap 17.1 (5-19) 08/09/25 17:46 BUN 19 mg/dL (8-23) 08/09/25 17:46 Creatinine 1.0 mg/dL (0.5-0.9) H 08/09/25 17:46 GFR Calculation 55.8 mL/min (90-130) L 08/09/25 17:46 Glucose 90 mg/dL (65-115) 08/09/25 17:46 Calculated Osmolality 288 mOsm/kg (285-295) 08/09/25 17:46 Calcium 9.8 mg/dL (8.5-10.5) 08/09/25 17:46 Total Bilirubin 0.5 mg/dL (0.15-1.2) 08/09/25 17:46 AST 21 U/L (0-32) 08/09/25 17:46 ALT 8 U/L (0-33) 08/09/25 17:46 Alkaline Phosphatase 56 U/L (35-105) 08/09/25 17:46 Total Protein 8.2 g/dL (6.6-8.7) 08/09/25 17:46 Albumin 4.5 g/dL (3.5-5.2) 08/09/25 17:46 Globulin 3.7 g/dL (1.3-4.6) 08/09/25 17:46 Lipase 23 U/L (13-60) 08/09/25 17:46 Urine Color Yellow (Yellow) 08/09/25 17:11 Urine Appearance Clear (CLEAR) 08/09/25 17:11 Urine pH 7.5 (5-7) 08/09/25 17:11 Ur Specific [place] 1.009 (1.005-1.030) 08/09/25 17:11 Urine Protein Trace (Negative) A 08/09/25 17:11 Urine Glucose (UA) Negative (Normal) 08/09/25 17:11 Urine Ketones Negative (Negative) 08/09/25 17:11 Urine Blood Negative (Negative) 08/09/25 17:11 Urine Nitrate Negative (Negative) 08/09/25 17:11 Urine Bilirubin Negative (Negative) 08/09/25 17:11 Urine Urobilinogen 0.2 mg/dL (Negative) 08/09/25 17:11 Ur Leukocyte Esterase Negative (Negative) 08/09/25 17:11 Urine RBC 0-2 /hpf (0-2) 08/09/25 17:11 Urine WBC 0-5 /hpf (0-5) 08/09/25 17:11 Ur Squamous Epith Cells 0-5 /hpf (0-5) 08/09/25 17:11 Amorphous Sediment Not Reportable 08/09/25 17:11 Urine Bacteria None seen /hpf (NONE) 08/09/25 17:11 Hyaline Casts 0-4 /lpf H 08/09/25 17:11 All radiology interpretation(s) finalized by discharge Discharge Plan Discharge Patient Disposition: Home Clinical Impression: Bladder retention of urine Condition: Stable Prescriptions: No Action baclofen 10 mg tablet See Rx Instructions .ROUTE .COMPLEX Qty: 360 1RF Rx Instructions: Take 1 tablet by mouth in the morning, 1 tablet at 3pm, and 2 tablets at 10pm. carvedilol [Coreg] 6.25 mg tablet 6.25 mg PO Q12H Qty: 180 1RF Rx Instructions: must administer with a meal fenofibrate micronized 134 mg capsule 134 mg PO DAILY@15 Qty: 90 1RF gabapentin 800 mg tablet 800 mg PO TID Qty: 360 1RF levothyroxine 50 mcg tablet 50 mcg PO DAILY@1500 Qty: 90 1RF Linzess 145 mcg capsule 145 mcg PO BEDTIME Qty: 90 1RF paroxetine HCl 30 mg tablet 30 mg PO DAILY Qty: 90 1RF (DME) BD Luer-Rae Syringe 3 mL 25 gauge x 1 syringe See Rx Instructions .ROUTE .MEDSUPPLY Qty: 5 0RF Rx Instructions: monthly terconazole 0.4 % cream 1 appful vaginal .at bedtime Qty: 45 0RF potassium gluconate 595 mg (99 mg) Tablet 595 mg PO TID@08,15,22 tlwzyrx-ruxujpzamggoj-dbloyfvx [Excedrin Extra Strength] 250-250-65 mg Tablet 1 tab PO Q6H PRN (Reason: Pain) omeprazole 20 mg Capsule,Delayed Release(Dr/Ec) 20 mg PO DAILY irbesartan 75 mg Tablet 75 mg PO DAILY glycopyrrolate [Robinul] 1 mg tablet 1 mg PO TID Discharge Orders: Discharge ED (Routine); Ordered 08/09/25 Ordered By: Cody Delgado Referrals: Hitesh Pal FNP-C [Primary Care Provider, Family Practice] Discharge Diet: Usual diet Discharge Activity: Increase activity as tolerated Patient Instructions: Chronic Urinary Retention in Women (ED), Patient Portal & Evelia Instructions Activity Restrictions/Additional Instructions: As we discussed, you have more than 700 mL of urine retained in your bladder after you went to the bathroom. This can cause infections and sepsis and can also harm your kidneys. There is no evidence of urinary infection or kidney damage at this time however. Oftentimes, urologist will recommend either placing a Zimmerman catheter that can continuously drain the bladder or else using intermittent catheterization to drain the bladder multiple times throughout the day. Sometimes they can fix this with surgery so that you do not need catheters. It is essential that you see a urologist to soon as possible so that they can decide what is causing this and help fix it. If you are not able to see them in a timely fashion and start to have symptoms of infection or worsening pain you are always welcome back to the emergency department to reconsider catheterization. Print Language: Yakut Coding Level of Care Code ED Construction Or Leak Gang Laborer for Antonia Medina
[2025-08-09 18:06] LABS: Hematocrit 46.7 % (36-47); Hemoglobin 15.00 g/dL (11.27-16.99); Mean Corpuscular HGB Conc 32.1 g/dL (30-55); Mean Corpuscular Hemoglobin 33.0 pg (27-33); Mean Corpuscular Volume 102.9 fl (85-98); Nucleated Red Blood Cells % 0 %; Platelet Count 211 10^3/cmm (157-399); Red Blood Count 4.54 10^6/uL (3.85-5.65); White Blood Count 5.47 10^3/uL (3.29-11.43)
[2025-08-09 18:25] LABS: Alanine Aminotransferase 8 U/L (0-33); Albumin Level 4.5 g/dL (3.5-5.2); Alkaline Phosphatase 56 U/L (35-105); Anion Gap 17.1 (5-19); Aspartate Amino Transferase 21 U/L (0-32); Blood Urea Nitrogen 19 mg/dL (8-23); Calcium 9.8 mg/dL (8.5-10.5); Carbon Dioxide 25 mmol/L (22-29); Chloride 100 mmol/L (98-107); Creatinine Clr Calc Pharmacy 43.9531; Globulin 3.7 g/dL (1.3-4.6); Glucose 90 mg/dL (65-115); Lipase 23 U/L (13-60); Osmolality Calculated 288 mOsm/kg (285-295); Potassium 4.1 mmol/L (3.5-5.1); Sodium 138 mmol/L (136-145); Total Protein 8.2 g/dL (6.6-8.7)
--- NOTE | 2025-08-09 20:55 | ECG_ITS ---
[facility]25[facility] Pat Name: Viola Ennis Department: Room: Gender: Female Measurement Superintendent: : 1960 Requested By: Cody Vieyra Order Number: [id number] Wall MD: Ernesto Gutiérrez M.D. Measurements Intervals [place] Rate: 80 P: 85 CA: 154 QRS: 7 QRSD: 82 T: 71 QT: 369 QTc: 427 Interpretive Statements SINUS RHYTHM LOW QRS VOLTAGE IN EXTREMITY LEADS [QRS DEFLECTION < 0.5 mV IN LIMB LEADS] Compared to ECG 07/06/2025 08:57:33 NO SIGNIFICANT CHANGE Electronically Signed On 08-09-2025 21:02:26 CDT by Ernesto Gutiérrez M.D. [email or web address]
== END 2025-08-09 21:29 | disposition home or self-care (01) ==
PROVIDERS: Emergency Provider Student in an Organized Health Care Education/Training Program; PCP Nurse Practitioner
DX: R33.9 Retention of urine, unspecified (principal); Z79.82 Long term (current) use of aspirin; J44.9 Chronic obstructive pulmonary disease, unspecified; I25.10 Atherosclerotic heart disease of native coronary artery without angina pectoris; E78.2 Mixed hyperlipidemia; I11.0 Hypertensive heart disease with heart failure; I50.9 Heart failure, unspecified
CPT/HCPCS: 36415; 74176; 80053; 81001; 83690; 85025; 93005; 99284; J9999

== ENCOUNTER 2025-08-12 21:28 | Emergency (ER) | payer MEDICARE, MEDICAID, SELFPAY ==
--- OUTSIDE RECORDS SUMMARY | 2025-08-12 21:36 | XMS_ITS | Encounter Summary ---
Author Organization [facility] Address [address] [place] [address] Care Team Providers Care Stock Buyer Name Role Phone Non-Staff, Physician Primary Care Provider Unava ilable Encounter Details Date Type Department Care Team (Late st Contact Info) Description 10/24/2008 Outpatient [facility] [address] [place] [address] Lelia Jacobo MD NO ADDRESS ON FILE Social History Tobacco Use Types Packs/Day Years Used Date Smoking Tobacco: Never Assessed Comments Unknown Sex and Gender Information Value Date Recorded Sex Assigned at Not on file Legal 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
--- OUTSIDE RECORDS SUMMARY | 2025-08-12 21:36 | XMS_ITS | Encounter Summary ---
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
--- OUTSIDE RECORDS SUMMARY | 2025-08-12 21:36 | XMS_ITS | Encounter Summary ---
Author Organization [facility] Address [address] [place] [address] Care Team Providers Care Power Driven Brush Maker Name Role Phone Non-Staff, Physician Primary Care Provider Unava ilable Encounter Details Date Type Department Care Team (Late st Contact Info) Description 05/03/2002 Outpatient [facility] [address] [place] [phone] Martell Baugh MD NO ADDRESS ON FILE MYALGIA AND MYOSITIS NOS (Primary Dx) Social History Tobacco Use Types Packs/Day Years Used Date Smoking Tobacco: Never Assessed Comments Unknown Sex and Gender Information Value Date Recorded Sex Assigned at Not on file 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
--- OUTSIDE RECORDS SUMMARY | 2025-08-12 21:36 | XMS_ITS | Encounter Summary ---
Author Organization [facility] Address [address] [place] [address] Care Team Providers Care Mechanical Integrity Engineer Name Role Phone Non-Staff, Physician Primary Care Provider Unava ilable Encounter Details Date Type Department Care Team (Latest Contact Info) Description 03/18/2002 Outpatient Historical [facility] [address] [place] [phone] Juancarlos Maier MD NO ADDRESS ON FILE CERVICALGIA (Primary Dx) Social History Tobacco Use Types Packs/Day Years Used Date Smoking Tobacco: Never Assessed Comments Unknown Sex and Gender Information Value Date Recorded Sex Assigned at Not on file 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
--- OUTSIDE RECORDS SUMMARY | 2025-08-12 21:36 | XMS_ITS | Encounter Summary ---
Author Organization [facility] Address [address] [place] [address] Care Team Providers Care Fruit Bar Maker Name Role Phone Non-Staff, Physician Primary Care Provider Unava ilable Encounter Details Date Type Department Care Team (Latest Contact Info) Description 09/13/2002 Outpatient [facility] Breast [facility] [address] [place] [address] Elias Chow Jr., MD [address] [place] [address] SCREENING MAMM-MAILG NEOPL-OTHER (Primary Dx) Social History Tobacco Use Types Packs/Day Years Used Date Smoking Tobacco: Never Assessed Comments Unknown Sex and Gender Information Value Date Recorded Sex Assigned at Not on file 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
--- OUTSIDE RECORDS SUMMARY | 2025-08-12 21:36 | XMS_ITS | Encounter Summary ---
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
--- OUTSIDE RECORDS SUMMARY | 2025-08-12 21:36 | XMS_ITS | Clinical Summary ---
Author Organization [facility] Address [address] [facility] [address] [place] [address] Phone Care Team Providers Care Drum Builder Name Role Phone Dav Mayorga Primary Care Provider [phone] Encounters Date Type Department Care Team Description 05/22/2025 Documentation Only [facility] [address] [place] [address] Debi Delgado MD from Last 3 Months Social History Tobacco [...] patient's age to complete this topic Insurance [facility] PPO ([id number]) Medicaid [place] ([id number]) Care Teams Drum Builder Relationship Specialty Start Date End Date Dav Mayorga DO [address] [place] [phone] PCP - General Family Medicine 04/17/25
--- OUTSIDE RECORDS SUMMARY | 2025-08-12 21:36 | XMS_ITS | Encounter Summary ---
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
--- OUTSIDE RECORDS SUMMARY | 2025-08-12 21:36 | XMS_ITS | Encounter Summary ---
Author Organization [facility] Address [address] [place] [address] Care Team Providers Care Manager Forms Name Role Phone Non-Staff, Physician Primary Care Provider Unava ilable Encounter Details Date Type Department Care Team (Late st Contact Info) Description 02/22/2002 Outpatient [facility] [address] [place] [address] Social History Tobacco Use Types Packs/Day Years Used Date Smoking Tobacco: Never Assessed Comments Unknown Sex and Gender Information Value Date Recorded Sex Assigned at Not on file 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
--- OUTSIDE RECORDS SUMMARY | 2025-08-12 21:36 | XMS_ITS | Clinical Summary ---
[facility] Organization [facility] Address [address] Travis: Epic Prelude ADT [place] [address] Care Team Providers Care Staple Laster Name Role Phone Non-Staff, Physician Primary Care [...] of application. For more information use the [employer] ADMINISTRATION link. 07/15/20 Active carvediloL (COREG) 6.25 [...] STL ABSTRACTION Provider, Abstract 07/26/2025 Orders Only [facility] [place] [address] [address] Jennifer Pro FNP Thrombocytopenia (Primary Dx) 07/18/2025 Telephone [facility] [place] [address] [place] [phone] Griffin San MD Other (Referral/) 07/18/2025 Abstract [facility] [address] [place] [phone] Provider, Abstract 07/18/2025 Orders Only [facility] [address] [place] [phone] Provider, Abstract 07/17/2025 Abstract [facility] [address] [place] [phone] Provider, Abstract 07/17/2025 Orders Only [facility] [address] [place] [phone] Provider, Abstract 07/13/2025 11:51 AM CDT Anesthesia Event [facility] Endoscopy [address] [place] [phone] Brice Granados II, 07/13/2025 10:00 AM CDT - 07/13/2025 10:20 AM CDT Surgery [facility] Endoscopy [address] [place] [phone] Griffin San MD ESOPHAGOGASTRODUODENOSCOPY 07/12/2025 External Device Data STL ABSTRACTION Provider, Abstract 07/11/2025 External Device Data STL ABSTRACTION Provider, Abstract 07/11/2025 External Device Data STL ABSTRACTION Provider, Abstract 07/08/2025 4:39 PM CDT - 07/15/2025 12:45 PM CDT Hospital Encounter [facility] 7B Medical Surgical [address] [place] [phone] Stormy Mittal MD Saeed, Mariam, MD Shah, MD Antoine Leonard, Natanael Vieyra MD Acute metabolic encephalopathy Discharge Disposition: [facility](SNF) with Medicare Certification in Anticipation of [...] on file 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 Gender Identity Not on file Sexual [...] Flex Sig/CT Colonography Q 5 years 2006 RSV VACCINE (60+ or ) (1 - Risk 50-74 years 1-dose series) 2011 ZOSTER VACCINE (1 of 2) 2011 INFLUENZA VACCINE (#1) 2025 06/24/2019 Procedures Procedure [...] 4.8 - 10.8 K/uL 07/15/2025 6:31 AM [facility] RBC 2.74(L) 4.20 - 5.40 M/uL 07/15/2025 6:31 AM [facility] HEMOGLOBIN 8.8(L) 12.0 - 16.0 g/dL 07/15/2025 6:31 AM [facility] HEMATOCRIT 27.3(L) 36.0 - 46.0 % 07/15/2025 6:31 AM [facility] MCV 99.6 84.0 - 103.0 fL 07/15/2025 6:31 AM [facility] MCH 32.1 27.0 - 34.0 pg 07/15/2025 6:31 AM [facility] MCHC 32.2 30.0 - 35.0 g/dL 07/15/2025 6:31 AM [facility] PLATELETS 154 140 - 440 K/uL 07/15/2025 6:31 AM [facility] MPV 11.5 8.9 - 12.8 fL 07/15/2025 6:31 AM [facility] RDW 17.0(H) 11.0 - 14.5 % 07/15/2025 6:31 AM [facility] RDW-STDEV 62.1(H) 37.0 - 54.0 fL 07/15/2025 6:31 AM [facility] NEUTROPHILS 57 42 - 75 % 07/15/2025 6:31 AM [facility] [employer] LYMPHOCYTES 25 24 - 44 % 07/15/2025 6:31 AM [facility] [employer] MONOCYTES 14(H) 2 - 10 % 07/15/2025 6:31 AM [facility] [employer] EOSINOPHILS 2 0 - 7 % 07/15/2025 6:31 AM [facility] [employer] BASOPHILS 1 0 - 1 % 07/15/2025 6:31 AM [facility] IMMATURE GRANULOCYTES 1 0 - 2 % 07/15/2025 6:31 AM CDT [facility] NEUTROPHIL ABSOLUTE 2.66 2.00 - 8.00 K/uL 07/15/2025 6:31 AM CDT [facility] LYMPHOCYTE ABSOLUTE 1.14(L) 1.20 - 4.00 K/uL 07/15/2025 6:31 AM CDT [facility] MONOCYTE ABSOLUTE 0.64(H) 0.10 - 0.60 K/uL 07/15/2025 6:31 AM CDT [facility] EOSINOPHIL ABSOLUTE 0.11 0.00 - 0.70 K/uL 07/15/2025 6:31 AM CDT [facility] BASOPHILS ABSOLUTE 0.05 0.00 - 0.20 K/uL 07/15/2025 6:31 AM T [facility] IMMATURE GRANULOCYTES ABSOLUTE 0.04 0.00 - 0.10 K/uL 07/15/2025 6:31 AM T [facility] SMEAR REVIEWED: NA - Not Applicable 07/15/2025 6:31 AM T [facility] Blood Venipuncture / Unknown 07/15/2025 5:41 AM CDT 07/15/2025 6:27 AM CDT us Nava Quiros WELL DRILL OPERATOR CABLE TOOL HEMATOLOGY ORDERABLES Milvia l Result [facility] # [id number] [address] [place] [address] * (ABNORMAL) COMPREHENSIVE METABOLIC PANEL (07/15/2025 5:41 AM CDT) Only the most recent of7 resultswithin the time period is included. SODIUM 137 136 - 145 mmol/L 07/15/2025 7:03 AM T [facility] POTASSIUM 4.1 3.5 - 5.1 mmol/L 07/15/2025 7:03 AM T [facility] CHLORIDE 102 98 - 107 mmol/L 07/15/2025 7:03 AM [facility] CO2 29 22 - 29 mmol/L 07/15/2025 7:03 AM [facility] CALCIUM 8.9 8.8 - 10.2 mg/dL 07/15/2025 7:03 AM [facility] BUN 28(H) 8 - 23 mg/dL 07/15/2025 7:03 AM [facility] CREATININE 1.34(H) 0.51 - 0.95 mg/dL 07/15/2025 7:03 AM [facility] GLUCOSE 85 74 - 99 mg/dL 07/15/2025 7:03 AM [facility] TOTAL PROTEIN 5.1(L) 6.4 - 8.3 g/dL 07/15/2025 7:03 AM [facility] ALBUMIN 3.0(L) 3.5 - 5.2 g/dL 07/15/2025 7:03 AM [facility] BILIRUBIN TOTAL 0.4 0.0 - 1.0 mg/dL 07/15/2025 7:03 AM [facility] ALKALINE PHOSPHATASE 45 35 - 104 U/L 07/15/2025 7:03 AM [facility] AST 17 10 - 35 U/L 07/15/2025 7:03 AM [facility] ALT 9 <=35 U/L 07/15/2025 7:03 AM [facility] GFR 44(L) >=60 mL/min/1. 73 sq meter 07/15/2025 7:03 AM [facility] Comment:eGFR calculated with 2020 CKD-EPI equation. Vegetarian diet, extremely high or low muscle mass, and may affect results. Cystatin C with Glomerular Filtration Rate is a suitable alternative for these patients. ANION GAP 6(L) 9 - 20 mmol/L 07/15/2025 7:03 AM [facility] Blood Venipuncture / Unknown 07/15/2025 5:41 AM [facility] 07/15/2025 6:27 AM CDT Nava Quiros WELL DRILL OPERATOR CABLE TOOL CHEMISTRY ORDERABLES Final Result Performing Organization Address [facility]/ZIP Co de Phone Number [facility] CLIA # [id number] [address] [address] * POC GLUCOSE (07/14/2025 4:48 PM CDT) Only the most recent of30 resultswithin the time period is included. GLUCOSE POC 98 74 - 99 mg/dL 07/14/2025 4:48 PM CDT [facility] SPECIMEN SOURCE, GLUCOSE POC Capillary 07/14/2025 4:48 PM CDT [facility] Blood, whole 07/14/2025 4:48 PM CDT 07/14/2025 5:25 PM CDT Natanael Schultz MD POINT OF CARE TESTING Final Result Performing Organization Address [facility] Co de Phone Number [facility] CLIA # [id number] [address] [address] * (ABNORMAL) RENAL FUNCTION PANEL (07/14/2025 2:06 PM CDT) SODIUM 135(L) 136 - 145 mmol/L 07/14/2025 2:48 PM CDT [facility] POTASSIUM 4.6 3.5 - 5.1 mmol/L 07/14/2025 2:48 PM CDT [facility] CHLORIDE 98 98 - 107 mmol/L 07/14/2025 2:48 PM CDT [facility] CO2 29 22 - 29 mmol/L 07/14/2025 2:48 PM CDT [facility] CALCIUM 8.9 8.8 - 10.2 mg/dL 07/14/2025 2:48 PM CDT [facility] BUN 29(H) 8 - 23 mg/dL 07/14/2025 2:48 PM CDT [facility] CREATININE 1.38(H) 0.51 - 0.95 mg/dL 07/14/2025 2:48 PM CDT [facility] GLUCOSE 92 74 - 99 mg/dL 07/14/2025 2:48 PM CDT [facility] ALBUMIN 3.3(L) 3.5 - 5.2 g/dL 07/14/2025 2:48 PM CDT [facility] PHOSPHORUS 3.0 2.5 - 4.5 mg/dL 07/14/2025 2:48 PM CDT [facility] GFR 43(L) >=60 mL/min/1. 73 sq meter 07/14/2025 2:48 PM CDT [facility] Comment:eGFR calculated with 2020 CKD-EPI equation. Vegetarian diet, extremely high or low muscle mass, and may affect results. Cystatin C with Glomerular Filtration Rate is a suitable alternative for these patients. ANION GAP 8(L) 9 - 20 mmol/L 07/14/2025 2:48 PM CDT [facility] Blood Venipuncture / Unknown 07/14/2025 2:06 PM CDT 07/14/2025 2:10 PM CDT us Natanael Schultz MD CHEMISTRY ORDERABLES Final [id number] [address] [place] [address] * UPPER ENDOSCOPY REPORT (07/13/2025 12:04 PM CDT) Narrative Procedure Note Griffin San MD - 07/13/2025 12:04 PM CDT [facility] GI Patient Name: Viola Ennis Procedure Date: [...] Withdrawal Time Scope In: Scope Out: [address] [place], [place] Griffin San MD GI PROCEDURE ORDERABLES Final Result * PATHOLOGY (07/13/2025 11:59 AM CDT) CASE REPORT Surgical Pathology Report Case: [id number] Authorizing Provider: Griffin San MD Collected: 07/13/2025 11:59 AM Ordering Location: [facility] Received: 07/14/2025 06:37 AM Endoscopy Pathologist: Susie Powers MD Specimen: Stomach 6:43 AM CDT [facility] FINAL DIAGNOSIS A. Stomach, biopsy - Focally active chronic gastritis with associated reactive/regenerative epithelial and stromal changes, consistent with repair - No intestinal metaplasia, dysplasia, or malignancy - Immunohistochemistry for Helicobacter pylori is negative Susie Powers MD [id number] 5 6:43 AM T [facility] at 0643 CDT GROSS DESCRIPTION A. Received in a container of formalin labeled [place] -stomach rule out gastritis and H. pylori are two fragments of mucosa, up to 0.3 cm in greatest dimension. The specimen is submitted entirely in A1. Grossed by: Dunia Mcdowell MS, PA ([facility]) 5 6:43 AM T [facility] MICROSCOPIC DESCRIPTION Immunohistochemistry for Helicobacter pylori was ordered on block A1 after review of H&E-stained slides based on the presence of inflammatory changes and clinician request to evaluate for infection. 5 6:43 AM T [facility] OPERATIVE PROCEDURE 1: ESOPHAGOGASTRODUODENOSCO PY 5 6:43 AM T [facility] CLINICAL INFORMATION R/o gastritis vs R/o H Pylori 5 6:43 AM T [facility] COMMENT The [employer] voice-activated dictation system may have been used [...] determined by the Diagnostic Immunohistochemistry Laboratory of [facility] in compliance with CLIA'88 regulations. Some of these tests rely on the use of analyte specific reagents and are subject to specific labeling requirements by the FDA. All controls show appropriate reactivity. This testing was developed by the Diagnostic Immunohistochemistry Laboratory of [facility]. It has not been cleared or approved by the FDA. The FDA has determined that such clearance or approval is not necessary. 5 6:43 AM [facility] Tissue ENTIRE STOMACH / Unknown Collection / Unknown 07/13/2025 11:59 AM CDT 07/14/2025 6:37 AM CDT Comment:R/o gastritis vs R/o H Pylori us Griffin San MD PATHOLOGY/CYTOLOGY ORDERABLES Final Result [facility] CLIA # [id number] [address] [address] [place] [address] * MAGNESIUM LEVEL (07/13/2025 4:27 AM CDT) Only the most recent of3 resultswithin the time period is included. MAGNESIUM 2.2 1.6 - 2.4 mg/dL 07/13/2025 5:27 AM CDT [facility] Blood Venipuncture / Unknown 07/13/2025 4:27 AM CDT 07/13/2025 4:55 AM CDT us Natanael Schultz MD CHEMISTRY ORDERABLES Final R esult Performing Organization Address [facility] Co de Phone Number [facility] CLIA # [id number] [address] [address] * (ABNORMAL) LACTATE DEHYDROGENASE (07/13/2025 4:27 AM CDT) Only the most recent of4 resultswithin the time period is included. LD (LACTATE DEHYDROGENASE) 351(H) 135 - 214 U/L 07/13/2025 8:05 AM CDT [facility] Blood Venipuncture / Unknown 07/13/2025 4:27 AM CDT 07/13/2025 4:55 AM CDT us Dunia Baron DO CHEMISTRY ORDERABLES Fi nal Result Performing Organization Address City/[facility]/ZIP Co de Phone Number [facility] [employer] CLIA # [id number] [address] [place], [place] [address] * (ABNORMAL) HAPTOGLOBIN (07/12/2025 1:26 PM CDT) Only the most recent of2 resultswithin the time period is included. HAPTOGLOBIN <10(L) 30 - 200 mg/dL 07/12/2025 2:36 PM CDT [facility] Blood Venipuncture / Unknown 07/12/2025 1:26 PM CDT 07/12/2025 1:39 PM CDT Dunia Baron DO CHEMISTRY ORDERABLES Fi nal Result Performing Organization Address City/[facility]/ZIP Co de Phone Number [facility] CLIA # [id number] [address] [address] [place] [address] * (ABNORMAL) PHOSPHORUS (07/12/2025 2:04 AM CDT) Only the most recent of2 resultswithin the time period is included. PHOSPHORUS 2.4(L) 2.5 - 4.5 mg/dL 07/12/2025 2:59 AM CDT [facility] Blood Venipuncture / Unknown 07/12/2025 2:04 AM CDT 07/12/2025 2:27 AM CDT Natanael Schultz MD CHEMISTRY ORDERABLES Final R esult [facility] CLIA # [id number] [address] [place] [address] * CT CHEST ABDOMEN PELVIS WO CONT [...] incidental findings as above. Narrative Procedure Note Mark Herrmann MD - 07/12/2025 IMPRESSION: Please see [...] incidental findings as above. us Nava Quiros WELL DRILL OPERATOR CABLE TOOL CT ORDERABLES Final Resu lt * EEG VIDEO MONITORING (07/10/2025 5:00 PM CDT) Narrative Marine Guerra MD - 07/10/2025 5:00 PM CDT Marine Guerra MD 07/10/2025 5:40 PM [facility] EEG REPORT Viola Ennis [id number] DATE(s) OF TEST: 07/09/2025 - 07/10/2025 DATE OF REPORT: 07/10/2025 Start time: 5 PM, 07/09/2025 Stop time: 5 PM, 07/10/2025 HISTORY: 65-year-old female is being evaluated for altered mental status MEDICATIONS THAT COULD AFFECT THE EEG: No antiseizure medications TECHNICAL SUMMARY: This is a digital video EEG recorded with 32 input channels on a [employer] system, reviewed with bipolar and referential montages [...] Marine Guerra MD Epilepsy/ Clinical Neurophysiology/ Neurology [facility] us Maritza Chauhan MD NEUROLOGY ORDERABLES Edited Resu lt - Final * TICK-BORNE PANEL, PCR (07/10/2025 2:41 PM CDT) ANAPLASMA PHAGOCYTOPHILUM PCR NOT DETECTED 07/14/2025 2:00 PM CDT [facility] Comment: REFERENCE RANGE: NOT DETECTED This test was developed and its analytical performance characteristics have been determined by [facility]. It has not been cleared or approved by FDA. This assay has been validated pursuant to the CLIA regulations and is used for clinical purposes. BABESIA MICROTI PCR NOT DETECTED 2:00 PM CDT [facility] Comment: REFERENCE RANGE: NOT DETECTED This test was developed and its analytical performance characteristics have been determined by [facility]. It has not been cleared or approved by FDA. This assay has been validated pursuant to the CLIA regulations and is used for clinical purposes. EHRLICHIA CHAFFEENSIS PCR NOT DETECTED 07/14/2025 2:00 PM CDT [facility] Comment: REFERENCE RANGE: NOT DETECTED This test was developed and its analytical performance characteristics have been determined by [facility]. It has not been cleared or approved by FDA. This assay has been validated pursuant to the CLIA regulations and is used for clinical purposes. EHRLICHIA EWINGII DNA, QL REAL TIME PCR NOT DETECTED 07/14/2025 2:00 PM CDT [facility] Comment: REFERENCE RANGE: NOT DETECTED This test was developed and its analytical performance characteristics have been determined by [facility]. It has not been cleared or approved by FDA. This assay has been validated pursuant to the CLIA regulations and is used for clinical purposes. BORRELIA MIYAMOTOI PCR NOT DETECTED 07/14/2025 2:00 PM CDT [facility] Comment: REFERENCE RANGE: NOT DETECTED This test detects but does not distinguish between B. miyamotoi and B. hermsii. This test was developed and its analytical performance characteristics have been determined by [facility]. It has not been cleared or approved [...] 07/14/2025 2:00 PM CDT [facility] Comment: REFERENCE RANGE: NOT DETECTED This test was developed and its analytical performance characteristics have been determined by [facility]. It has not been cleared or approved by FDA. This assay has been validated pursuant to the CLIA regulations and is used for clinical purposes. For additional information, please refer to https://education.[employer]/faq/tqu819 (This link is being provided for informational/ educational purposes only.) Blood Venipuncture / Unknown 07/10/2025 2:41 PM CDT 07/10/2025 2:45 PM CDT Narrative [facility] - 07/14/2025 2:00 PM CDT Performing Organization Information: Site ID: [id number] Name: [facility]/[employer] [facility], Address: [address] [place] [phone] Director: Yasmeen Ramesh MD,PhD,MIMA Performing Organization Information: Site ID: [id number] Name: [facility]/[employer] [facility], Address: [address] [place] [phone] Director: Yasmeen Ramesh MD,PhD,MIMA Performing Organization Information: Site ID: EZ Name: [facility], Address: [address] [place] [phone] Director: Yasmeen Ramesh MD,PhD,MIMA Performing Organization Information: Site ID: [id number] Name: [facility], Address: [address] [place] [phone] Director: Yasmeen Ramesh MD,PhD,MIMA Nava Quiros WELL DRILL OPERATOR CABLE TOOL CHEMISTRY ORDERABLES Final Result Performing Organization Address [facility]/ZIP Co de Phone Number [facility] * HIV DETECTION W/REFLX CONFIRMATION (07/10/2025 2:41 PM CDT) [facility] HIV-1 AND 2 ABS AND HIV-1 AG Non-reacti ve Non-React mikhail 07/10/2025 3:43 PM CDT [facility] Blood Venipuncture / Unknown 07/10/2025 2:41 PM CDT 07/10/2025 2:44 PM CDT Nava Quiros WELL DRILL OPERATOR CABLE TOOL CHEMISTRY ORDERABLES Final Result Performing Organization Address [facility] Co de Phone Number [facility] CLIA # [id number] [address] [place] [address] * (ABNORMAL) BASIC METABOLIC PANEL PLUS (ADD ON CMP TO BMP) (07/10/2025 2:41 PM CDT) Pathologist [facility] TOTAL PROTEIN 5.5(L) 6.4 - 8.3 g/dL 07/10/2025 3:31 PM CDT [facility] ALBUMIN 3.5 3.5 - 5.2 g/dL 07/10/2025 3:31 PM CDT [facility] BILIRUBIN TOTAL 1.0 0.0 - 1.0 mg/dL 07/10/2025 3:31 PM CDT [facility] ALKALINE PHOSPHATASE 42 35 - 104 U/L 07/10/2025 3:31 PM CDT [facility] AST 25 10 - 35 U/L 07/10/2025 3:31 PM CDT [facility] ALT 15 <=35 U/L 07/10/2025 3:31 PM CDT [facility] Blood Venipuncture / Unknown 07/10/2025 2:41 PM CDT 07/10/2025 2:45 PM CDT us Nava Quiros WELL DRILL OPERATOR CABLE TOOL CHEMISTRY ORDERABLES Final Result [facility] CLIA # [id number] [address] [place] [address] [place] [address] * ACUTE HEPATITIS PANEL (07/10/2025 2:41 PM CDT) HEPATITIS B SURFACE AG NON-REACT MIKHAIL Non-react mikhail 07/10/2025 3:57 PM CDT [facility] Comment:A non-reactive test result does not exclude the possibility of exposure to or infection with hepatitis B. HEPATITIS B CORE IGM NON-REACT MIKHAIL Non-react mikhail 07/10/2025 3:57 PM CDT [facility] Comment:IgM antibodies to HB c were not detected; does not exclude the possibility of exposure to HBV. HEPATITIS A IGM Non-react mikhail Non-react mikhail 07/10/2025 3:57 PM CDT [facility] Comment:A negative test resu lt does not exclude the possibility of exposure to Hepatitis A virus. HEPATITIS C AB NON-REACT MIKHAIL Non-react mikhail 07/10/2025 3:57 PM CDT [facility] Comment:Antibodies to HCV we re not detected, does not exclude the possibility of exposure to HCV. Blood Venipuncture / Unknown 07/10/2025 2:41 PM CDT 07/10/2025 2:45 PM CDT Nava Quiros WELL DRILL OPERATOR CABLE TOOL CHEMISTRY ORDERABLES Final Result Performing Organization Address [facility]/ZIP Co de Phone Number [facility] CLIA # [id number] [address] [address] * VITAMIN B12 AND FOLATE (07/10/2025 2:41 PM CDT) VITAMIN B12 610 211 - 946 pg/mL 07/10/2025 3:42 PM CDT [facility] FOLATE, SERUM 3.1 3.1 - 17.5 ng/mL 07/10/2025 3:42 PM CDT [facility] Blood Venipuncture / Unknown 07/10/2025 2:41 PM CDT 07/10/2025 2:51 PM CDT Nava Quiros WELL DRILL OPERATOR CABLE TOOL CHEMISTRY ORDERABLES Final Result Performing Organization Address [facility] de Phone Number [facility] CLIA # [id number] [address] [address] * IRON, TIBC, AND PERCENT SATURATION (07/10/2025 2:41 PM CDT) IRON 101 37 - 145 ug/dL 07/10/2025 3:31 PM CDT [facility] TIBC 252 250 - 450 ug/dL 07/10/2025 3:31 PM CDT [facility] IRON % SATURATION 40 15 - 60 % 07/10/2025 3:31 PM CDT [facility] Blood Venipuncture / Unknown 07/10/2025 2:41 PM CDT 07/10/2025 2:45 PM CDT Nava Quiros WELL DRILL OPERATOR CABLE TOOL CHEMISTRY ORDERABLES Final Result Performing Organization Address City/[facility]/ZIP Co de Phone Number [facility] CLIA # [id number] [address] [address] [place] [address] * PTT (07/10/2025 2:41 PM CDT) PTT 35.8 24.8 - 37.2 seconds 07/10/2025 3:03 PM CDT [facility] Blood Venipuncture / Unknown 07/10/2025 2:41 PM CDT 07/10/2025 2:47 PM CDT Narrative [facility] - 07/10/2025 3:03 PM CDT Therapeutic Range: Hi-level PE/DVT heparin protocol 80.1 - 95.0 sec Lo-level PE/DVT heparin protocol 70.1 - 85.0 sec Cardiac Heparin Protocol 70.1 - 100.0 sec Nava Quiros NP HEMATOLOGY ORDERABLES Milvia l Result Performing Organization Address [facility] Co de Phone Number [facility] CLIA # [id number] [address] [place], [place] [address] * SEDIMENTATION RATE (07/10/2025 2:41 PM CDT) ESR (SEDIMENTATION RATE) 11 0 - 20 mm/Hr 07/10/2025 3:55 PM CDT [facility] Blood Venipuncture / Unknown 07/10/2025 2:41 PM CDT 07/10/2025 2:47 PM CDT Nava Quiros NP HEMATOLOGY ORDERABLES Milvia l Result Performing Organization Address [facility] Co de Phone Number [facility] CLIA # [id number] [address] [place] [address] * FIBRINOGEN QUANTITATIVE (07/10/2025 2:41 PM CDT) FIBRINOGEN 324 200 - 400 mg/dL 07/10/2025 3:03 PM CDT [facility] Blood Venipuncture / Unknown 07/10/2025 2:41 PM CDT 07/10/2025 2:47 PM CDT Nava Quiros WELL DRILL OPERATOR CABLE TOOL HEMATOLOGY ORDERABLES Milvia l Result Performing Organization Address [facility] Co de Phone Number [facility] CLIA # [id number] [address] [address] * (ABNORMAL) RETICULOCYTES (07/10/2025 2:41 PM CDT) RETICULOCYTES 1.8 0.9 - 2.2 % 07/10/2025 2:53 PM CDT [facility] IMMATURE RETIC FRACTION 16.8(H) 3.3 - 13.6 % 07/10/2025 2:53 PM CDT [facility] RETICULOCYTE, ABSOLUTE 0.0623 0.0160 - 0.0700 10e6/uL 07/10/2025 2:53 PM CDT [facility] RETICULOCYTE HEMOGLOBIN CONTENT 35.7 27.8 - 37.7 pg 07/10/2025 2:53 PM CDT [facility] Blood Venipuncture / Unknown 07/10/2025 2:41 PM CDT 07/10/2025 2:47 PM CDT Nava Quiros WELL DRILL OPERATOR CABLE TOOL HEMATOLOGY ORDERABLES Milvia l Result Performing Organization Address [facility] Co de Phone Number [facility] CLIA # [id number] [address] [address] * (ABNORMAL) C-REACTIVE PROTEIN (07/10/2025 2:41 PM CDT) CRP 62.6(H) 0.0 - 5.0 mg/L 07/10/2025 3:31 PM CDT [facility] Blood Venipuncture / Unknown 07/10/2025 2:41 PM CDT 07/10/2025 2:45 PM CDT Nava Quiros WELL DRILL OPERATOR CABLE TOOL CHEMISTRY ORDERABLES Final Result [facility] CLIA # [id number] [address] [address] [place] [address] * JER SCREEN W/REFLEX (07/10/2025 2:41 PM CDT) [facility] JER SCREEN NEGATIVE NEGATIVE 07/13/2025 6:43 PM CDT [facility] Comment: JER IFA is a first line [...] AC-0: Negative International Consensus on JER Patterns (https://doi.org/10.1515/fgjv-7433-9707) For additional information, please refer to http://education.[employer].Snapwire/faq/TZR214 (This link is being provided for informational/ educational purposes only.) Blood Venipuncture / Unknown 07/10/2025 2:41 PM CDT 07/10/2025 2:51 PM CDT Narrative [facility] - 07/13/2025 6:43 PM CDT Performing Organization Information: Site ID: [place] Name: [employer] Address: [address] [id number] Director: Jessa Barajas MD us Nava Quiros NP CHEMISTRY ORDERABLES Final Result [facility] * (ABNORMAL) FERRITIN (07/10/2025 2:41 PM CDT) FERRITIN 904.6(H) 13.0 - 150.0 ng/mL 07/10/2025 3:31 PM CDT [facility] Blood Venipuncture / Unknown 07/10/2025 2:41 PM CDT 07/10/2025 2:45 PM CDT Nava Quiros WELL DRILL OPERATOR CABLE TOOL CHEMISTRY ORDERABLES Final Result Performing Organization Address [facility] Co de Phone Number [facility] CLIA # [id number] [id number] [place] [address] * US RENAL + DOPPLER (07/10/2025 1:09 [...] of3 resultswithin the time period is included. Pathologist [facility] WBC 5.4 4.8 - 10.8 K/uL 07/10/2025 4:56 AM T [facility] RBC 2.95(L) 4.20 - 5.40 M/uL 07/10/2025 4:56 AM CDT [facility] HEMOGLOBIN 9.5(L) 12.0 - 16.0 g/dL 07/10/2025 4:56 AM T [facility] HEMATOCRIT 27.4(L) 36.0 - 46.0 % 07/10/2025 4:56 AM T [facility] MCV 92.9 84.0 - 103.0 fL 07/10/2025 4:56 AM T [facility] MCH 32.2 27.0 - 34.0 pg 07/10/2025 4:56 AM CDT [facility] MCHC 34.7 30.0 - 35.0 g/dL 07/10/2025 4:56 AM CDT [facility] PLATELETS 39(L) 140 - 440 K/uL 07/10/2025 4:56 AM CDT [facility] MPV 07/10/2025 4:56 AM T [facility] Comment:MPV not resulted due to platelet size variation. RDW 18.6(H) 11.0 - 14.5 % 07/10/2025 4:56 AM CDT [facility] RDW-STDEV 64.4(H) 37.0 - 54.0 fL 07/10/2025 4:56 AM T [facility] Blood Venipuncture / Unknown 07/10/2025 4:36 AM CDT 07/10/2025 4:45 AM CDT Inocencia Neff [facility] HEMATOLOGY ORDERABLE S Final Result [facility] CLIA # [id number] [address] [place] [address] * (ABNORMAL) BASIC METABOLIC PANEL (07/10/2025 4:36 AM CDT) Only the most recent of3 resultswithin the time period is included. SODIUM 135(L) 136 - 145 mmol/L 07/10/2025 5:22 AM CDT [facility] POTASSIUM 3.5 3.5 - 5.1 mmol/L 07/10/2025 5:22 AM CDT [facility] CHLORIDE 103 98 - 107 mmol/L 07/10/2025 5:22 AM CDT [facility] CO2 21(L) 22 - 29 mmol/L 07/10/2025 5:22 AM T [facility] CALCIUM 7.8(L) 8.8 - 10.2 mg/dL 07/10/2025 5:22 AM CDT [facility] BUN 13 8 - 23 mg/dL 07/10/2025 5:22 AM T [facility] CREATININE 0.87 0.51 - 0.95 mg/dL 07/10/2025 5:22 AM T [facility] GLUCOSE 94 74 - 99 mg/dL 07/10/2025 5:22 AM T [facility] GFR >60 >=60 mL/min/1.7 3 sq meter 07/10/2025 5:22 AM T [facility] Comment:eGFR calculated with 2020 CKD-EPI equation. Vegetarian diet, extremely high or low muscle mass, and may affect results. Cystatin C with Glomerular Filtration Rate is a suitable alternative for these patients. ANION GAP 11 9 - 20 mmol/L 07/10/2025 5:22 AM [facility] Blood Venipuncture / Unknown 07/10/2025 4:36 AM CDT 07/10/2025 4:48 AM CDT Inocencia Neff [facility] CHEMISTRY ORDERABLES Final Result [facility] CLIA # [id number] [address] [place] [address] * EEG VIDEO MONITORING (07/09/2025 5:34 PM CDT) Narrative Shayy Brannon MD - 07/09/2025 5:34 PM CDT Shayy Brannon MD 07/09/2025 5:[address] [facility] CONTINUOUS ELECTROENCEPHALOGRAM (EEG) REPORT Patient Name: Viola [...] mL, 1,000 mL, IV, ONE time only, HaleyChristianne NP, Stopped at 07/09/25 0005 TECHNICAL SUMMARY: Prolonged video monitoring EEG study performed with standard 10-20 electrodes. Data are recorded using an Voxeet digital EEG machine. ARTIFACTS: yes INTERRUPTIONS: Disconnected from 0826 to 1337 and [id number] EEG DETAILS: The patient's video portion was [...] ANTIGLOBULIN POLY Negative 07/10/2025 3:14 PM CDT [facility] Blood Venipuncture / Unknown 07/09/2025 2:01 PM CDT 07/10/2025 2:01 PM CDT Nava Quiros NP BLOOD BANK ORDERABLES Milvia staton Result [facility] [place] CLIA#[id number] [address] [place] [place] [address], * ECHO COMPLETE W BUBBLE STUDY (07/09/2025 12:25 PM CDT) EJECTION FRACTION 60 INTERFACE SYSTEM 07/09/2025 9:41 AM CDT Narrative INTERFACE SYSTEM - 07/10/2025 7:56 AM CDT [facility] Cardiovascular Services Echocardiography Laboratory [address] [place] [address] Transthoracic Echocardiography Patient: Viola Ennis Study ECHO COMPLETE Nazanin Herzog ID: Gender: F : 1960 Age: 65 Room: [facility] Study 07/09/2025 Pt Inpatient Date: Status: Study 09:41:08 AM CSN #: [id number] Time: Ordering:Inocencia Neff Scarifier Operator: ADAM Indications and History: Cardiac Etiology: General; [...] study in the baseline state, shows no zvtiv-pd-dyxe shunt. After Valsalva, cannot exclude passage of [...] study in the baseline state, shows no bngip-ew-sbbd shunt. After Valsalva, cannot exclude passage of [...] (H) severiano values outside specified reference range. [facility] Echo Labs are accredited with the Intersoss healthetal Accreditation Commission - Echocardiography. Prepared and Electronically Authenticated Ruben Tomas MD Confirmed 07/10/2025 07:56 Procedure Note Ruben Tomas MD - 07/10/2025 [facility] Cardiovascular Services Echocardiography Laboratory [address] [place] [address] Transthoracic Echocardiography Patient: Viola Ennis Study CHRISTINE Herzog ID: Gender: F : 1960 Age: 65 Room: [facility] Study 07/09/2025 Pt Inpatient Date: Status: Study 09:41:08 AM [facility] #: [id number] Time: Ordering:Inocencia Neff Scarifier Operator: ADAM Indications and History: Cardiac Etiology: General; [...] contrast study in the baseline state,shows no qerom-hs-llkz shunt. After Valsalva, cannot exclude passage of [...] contrast study inthe baseline state, shows no gittr-wy-aptq shunt. After Valsalva, cannotexclude passage of 1-2 [...] (H) severiano values outside specified reference range. [facility] Echo Labs are accredited with theIntersocietal Accreditation Commission - Echocardiography. Prepared and Electronically Authenticated Ruben Tomas MD Confirmed 07/10/2025 07:56 Inocencia Neff HSE ADVISOR- US ORDERABLES Milvia l Result INTERFACE SYSTEM Refer to clinic/hospital department * TRANSFUSE RED BLOOD CELLS (07/09/2025 11:53 AM CDT) Rudi Varma MD BLOOD TRANSFUSION ORDERABLES Final [...] Mild volume loss and moderate leukoaraiosis underlying. Maritza Chauhan MD MR ORDERABLES Final Result * PERIPHERAL BLOOD SMEAR PATHOLOGY INTERP (07/09/2025 7:44 AM CDT) PERIPHERAL BLOOD SMEAR INTERP See Interpretation Below 07/10/2025 10:19 AM CDT [facility] INTERPRETED BY: Calvin De La Garza MD 07/10/2025 10:19 AM CDT [facility] Blood Venipuncture / Unknown 07/09/2025 7:44 AM CDT 07/09/2025 7:47 AM CDT Narrative [facility] - 07/10/2025 10:19 AM CDT CLINICAL INFORMATION: [...] consider additional testing including LDH, haptoglobin, and [id number] activity. Correlation with clinical and other laboratory [...] Martell De La Garza MD Gin Hernández WELL DRILL OPERATOR CABLE TOOL HEMATOLOGY ORDERABLES Final R esult Performing Organization Address City/[facility]/ZIP Co de Phone Number [facility] CLIA # [id number] [address] [place] [address] * BLOOD BANK AB IDENT (07/09/2025 5:52 AM CDT) ANTIBODY #1 Anti-D 07/09/2025 9:24 AM CDT [facility] Blood Venipuncture / Unknown 07/09/2025 5:52 AM CDT 07/09/2025 5:55 AM CDT Rudi Varma MD BLOOD BANK ORDERAB LES Final Result Performing Organization Address City/[facility] Co de Phone Number [facility] CLIA#[id number] [address] [place] [place] [address], * TYPE AND SCREEN (07/09/2025 5:52 AM CDT) ABO GROUP O 07/09/2025 9:21 AM CDT [facility] [place] RH (D) TYPE Negative 07/09/2025 9:21 AM CDT [facility] [place] ANTIBODY SCREEN Positive 07/09/2025 9:21 AM CDT [facility] [place] Blood Venipuncture / Unknown 07/09/2025 5:52 AM CDT 07/09/2025 5:55 AM CDT Rudi Varma MD BLOOD BANK ORDERAB LES Edited Result - Final Performing Organization Address [facility]/ZIP Co de Phone Number [facility] [place] CLIA#[id number] [address] [place] [address], * PREPARE RED BLOOD CELLS (07/09/2025 5:42 AM CDT) COMPONENT TYPE [id number] [facility] [place] COMPONENT IDENTIFICATION [id number] [facility] [place] UNIT ABO O [facility] [place] UNIT RH NEG [facility] [place] CROSSMATCH Compatible [facility] [place] COMPONENT STATUS Transfused ME [facility] [place] COMPONENT EXPIRATION DATE/TIME [id number] [facility] [place] COMPONENT CODING SYSTEM [address] [facility] [place] VOLUME, BLOOD PRODUCT 350 [facility] [place] Other, specify 07/09/2025 5: 42 AM CDT Rudi Varma MD LAB TRANSFUSION OR DERABLES Edited Result - Final Performing Organization Address [facility]/ZIP Co de Phone Number [facility] [place] CLIA#[id number] [address] [place] [address], * (ABNORMAL) DRUG SCREEN, URINE (07/09/2025 12:30 AM CDT) AMPHETAMINE QUAL, URINE Negative Negative 07/09/2025 1:18 AM CDT [facility] BARBITURATE QUAL, URINE Negative Negative 07/09/2025 1:18 AM CDT [facility] BENZODIAZEPINE QUAL, URINE Negative Negative 07/09/2025 1:18 AM CDT [facility] COCAINE QUAL URINE Negative Negative 07/09/2025 1:18 AM CDT [facility] OPIATE QUAL, URINE Negative Negative 07/09/2025 1:18 AM CDT [facility] CANNABINOIDS QUAL, URINE Presumptive Positive(A) Negative 07/09/2025 1:18 AM CDT [facility] OXYCODONE QUAL, URINE Negative Negative 07/09/2025 1:18 AM T [facility] METHADONE QUAL, URINE Negative Negative 07/09/2025 1:18 AM T [facility] FENTANYL QUAL, URINE Presumptive Positive(A) Negative 07/09/2025 1:18 AM CDT [facility] CREATININE, URINE 17.1(L) 29.0 - 226.0 mg/dL 07/09/2025 1:18 AM T [facility] Comment:Reference Range vari es with fluid intake and diet. Urine URINE SPECIMEN OBTAINED BY CLEAN CATCH PROCEDURE / Unknown Collection / Unknown 07/09/2025 12:30 AM CDT 07/09/2025 12:34 AM CDT Narrative [facility] - 07/09/2025 1:18 AM CDT When Urine [...] Maritza Chauhan MD URINE ORDERABLES Final Result [facility] # [id number] [address] [place] [address] [place] [address] * (ABNORMAL) URINALYSIS WITH REFLEX MICROSCOPIC (07/09/2025 12:30 AM CDT) COLOR UA Pale Yellow Pale to Dark Yellow 07/09/2025 12:44 AM T [facility] CLARITY UA Clear Clear 07/09/2025 12:44 AM CDT [facility] SPECIFIC GRAVITY UA 1.012 1.003 - 1.035 07/09/2025 12:44 AM T [facility] PH UA 7.0 5.0 - 8.0 07/09/2025 12:44 AM T [facility] LEUKOCYTE ESTERASE UA Negative Negative 07/09/2025 12:44 AM T [facility] NITRITE UA Negative Negative 07/09/2025 12:44 AM T [facility] PROTEIN UA 1+(A) Negative 07/09/2025 12:44 AM T [facility] GLUCOSE UA Negative Negative 07/09/2025 12:44 AM T [facility] KETONES UA Negative Negative 07/09/2025 12:44 AM T [facility] UROBILINOGEN UA <2.0 <2.0 mg/dL 12:44 AM T [facility] BILIRUBIN UA Negative Negative 07/09/2025 12:44 AM T [facility] BLOOD UA 2+(A) Negative 07/09/2025 12:44 AM T [facility] WBC UA 0-2 0 - 2 /hpf 07/09/2025 12:44 AM T [facility] RBC UA 11-25(A) 0 - 2 /hpf 07/09/2025 12:44 AM T [facility] BACTERIA UA Negative Negative /hpf 07/09/2025 12:44 AM T [facility] EPITHELIAL CELLS, URINE 0-5 0 - 5 /hpf 07/09/2025 12:44 AM T [facility] Urine URINE SPECIMEN OBTAINED BY CLEAN CATCH PROCEDURE / Unknown Collection / Unknown 07/09/2025 12:30 AM CDT 07/09/2025 12:34 AM CDT Inocencia Neff HSE ADVISOR-BC URINE ORDERABLES Fin al Result [facility] CLIA # [id number] [id number] [place] [address] * BLOOD CULTURE (07/08/2025 8:25 PM CDT) Only the most recent of2 resultswithin the time period is included. [facility] BLOOD CULTURE No growth 07/13/2025 9:40 PM CDT [facility] Blood (Peripheral) Venipuncture / Unknown 07/08/2025 8:25 PM CDT 07/08/2025 8:30 PM CDT Narrative [facility] - 07/13/2025 9:40 PM CDT Specimen processed with suboptimal blood volume collected. us Inocencia REYNOLDS MICROBIOLOGY - GENER AL ORDERABLES Final Result [facility] CLIA # [id number] [address] [address] [place] [address] * AMMONIA LEVEL (07/08/2025 8:25 PM CDT) [facility] AMMONIA 25.0 11.0 - 51.0 umol/L 07/08/2025 8:56 PM CDT [facility] Blood, venous Venipuncture / Unknown 07/08/2025 8:25 PM CDT 07/08/2025 8:27 PM CDT us Maritza Chauhan MD CHEMISTRY ORDERABLES Final Resul t [facility] CLIA # [id number] [address] [address] [place] [address] * EKG 12-LEAD (07/08/2025 6:37 PM CDT) 07/08/2025 6:37 PM CDT Narrative INTERFACE SYSTEM - 07/09/2025 2:[address] PM [address]T [address] [address] Test Date: 2025-07-08 Pat Name: [facility] Department: 12 Room: [address] [place] [address] Gender: Female Materials Scheduler: [id number] : 1960 Requested By: Order Number: [id number] Reading MD: Rajani Greenwood Measurements Intervals [place] Rate: 82 P: 84 [place]: 130 QRS: 24 QRSD: 66 T: 71 QT: 360 QTc: 420 Interpretive Statements Normal sinus rhythm Low voltage QRS Borderline ECG Electronically Signed On 07-09-2025 14:26:55 CDT by Rajani Greenwood Procedure Note Provider, Historical - 07/09/[address] [address] Test Date: 2025-07-08 Pat Name: [facility] Department: 12 Room: [address] [place] [address] Gender: Female Materials Scheduler: [id number] : 1960 Requested By: Order Number: [id number] Reading : Rajani Greenwood Measurements Intervals [place] Rate: 82 P: 84 [place]: 130 QRS: 24 QRSD: 66 T: 71 QT: 360 QTc: 420 Interpretive Statements Normal sinus rhythm Low voltage QRS Borderline ECG Electronically Signed On 07-09-2025 14:26:55 CDT by Rajani Greenwood Inocencia Neff [facility] ECG ORDERABLES Milvia l Result INTERFACE SYSTEM Refer to clinic/hospital department * TSH (07/08/2025 6:01 PM CDT) TSH 2.79 0.27 - 4.20 uIU/mL 07/08/2025 7:01 PM CDT [facility] Blood Venipuncture / Unknown 07/08/2025 6:01 PM CDT 07/08/2025 6:21 PM CDT us Maritza Chauhan MD CHEMISTRY ORDERABLES Final Resul t [facility] CLIA # [id number] [address] [address] * PROTIME-INR (07/08/2025 6:00 PM CDT) Only the most recent of2 resultswithin the time period is included. [facility] PROTIME 14.9 12.7 - 14.9 Seconds 07/08/2025 6:50 PM CDT [facility] INR 1.1 0.8 - 1.2 07/08/2025 6:50 PM CDT [facility] Blood Venipuncture / Unknown 07/08/2025 6:00 PM CDT 07/08/2025 6:22 PM CDT Narrative [facility] - 07/08/2025 6:50 PM CDT Expected Values for INR: DVT/PE Goal INR 2.5; range 2.0 - 3.0 Valve Replacement Tissue Goal INR 2.5; range 2.0 - 3.0 Valve Replacement Mechanical Goal INR 3.0; range 2.5 - 3.5 POST-CT Goal INR 2.5; range 2.0 - 3.0 or Goal INR 3.0; range 2.5 - 3.5 Atrial Fibrillation Goal INR 2.5; range 2.0 - 3.0 Ischemic Stroke Goal INR 2.5; range 2.0 - 3.0 us Inocencia Neff APRN- HEMATOLOGY ORDERABLE S Final Result [facility] CLIA # [id number] [facility] [address] [address] * PNEUMONIA PATHOGEN PCR PANEL (07/08/2025 5:56 PM CDT) [facility] Pneumonia Pathogen PCR Panel NOT DETECTED No nucleic acids detected. 07/08/2025 7:18 PM CDT [facility] Sputum SPUTUM SPECIMEN OBTAINED BY ASPIRATION / Unknown Collection / Unknown 07/08/2025 5:56 PM CDT 07/08/2025 5:59 PM CDT Narrative [facility] - 07/08/2025 7:18 PM CDT NOTE: Per the dog track kennel manager, this current lot of reagent may be insensitive for the full detection of adenoviruses. If adenovirus is within the differential diagnosis, the specimen may be submitted to a reference laboratory for further testing. If desired, order [id number] Lab Test, stating Adenovirus by PCR testing [...] VIM mecA/C and MREJ us Inocencia Neff HSE ADVISOR-BC MICROBIOLOGY - GENER AL ORDERABLES Final Result [facility] CLIA # [id number] [address] [address] * SPUTUM CULTURE WITH GRAM STAIN (07/08/2025 5:56 PM CDT) CULTURE No pathogens isolated. Normal respiratory elizabeth reduced. 07/10/2025 8:02 AM CDT [facility] GRAM STAIN Smear contains </=10 squamous epithelial cells per low power field 07/10/2025 8:02 AM CDT [facility] GRAM STAIN >25 PMN WBC/LPF 8:02 AM CDT [facility] GRAM STAIN No organisms observed 07/10/2025 8:02 AM CDT [facility] Sputum SPUTUM SPECIMEN OBTAINED BY ASPIRATION / Unknown Collection / Unknown 07/08/2025 5:56 PM CDT 07/08/2025 5:59 PM CDT Inocencia Neff HSE ADVISOR- MICROBIOLOGY - GENER AL ORDERABLES Final Result [facility] CLIA # [id number] formerly [facility] [address] [address] [place] [address] * XR CHEST PA OR AP 1 [...] 2. No evidence of infiltrates. Inocencia Neff [facility] DIAGNOSTIC IMAGING O RDERABLES Final Result * POC LACTIC ACID (07/08/2025 5:01 PM CDT) Pathologist [facility] LACTIC ACID POC 1.2 <=2.0 mmol/L 07/08/2025 5:01 PM CDT [facility] SPECIMEN SOURCE, GASES POC Arterial 07/08/2025 5:01 PM CDT [facility] PUNC SITE POC ART PUNCT 07/08/2025 5:01 PM CDT [facility] Blood 07/08/2025 5:01 PM CDT 07/08/2025 5:03 PM CDT Narrative [facility] - 07/08/2025 5:01 PM CDT References ranges displayed are for Arterial samples. Stormy Mittal MD POINT OF CARE TESTING Final Resu lt [facility] CLIA # [id number] [facility] [address] * (ABNORMAL) BLOOD GAS ARTERIAL (07/08/2025 5:01 PM CDT) Pathologist [facility] PH BLOOD POC 7.45 7.35 - 7.45 07/08/2025 5:01 PM CDT [facility] PCO2 POC 29(L) 35 - 45 mm Hg 07/08/2025 5:01 PM CDT [facility] PO2 POC 165(H) 80 - 105 mm Hg 07/08/2025 5:01 PM [facility] HCO3 (CALC) POC 20(L) 22 - 26 mmol/L 07/08/2025 5:01 PM [facility] HEMOGLOBIN POC 10.9(L) 12.0 - 18.0 g/dL 07/08/2025 5:01 PM [facility] BASE EXCESS POC -4(L) -2 - 3 mmol/L 07/08/2025 5:01 PM [facility] O2 SATURATION POC 100(H) 95 - 98 % 025 5:01 PM [facility] SODIUM POC 135(L) 138 - 146 mmol/L 07/08/2025 5:01 PM [facility] POTASSIUM POC 3.8 3.5 - 4.9 mmol/L 07/08/2025 5:01 PM [facility] HEMATOCRIT POC 33(L) 38 - 51 % 07/08/2025 5:01 PM [facility] PH TEMP CORRECT 7.45 7.35 - 7.45 07/08/2025 5:01 PM [facility] PCO2 TEMP CORRECT 29(L) 35 - 45 mm Hg 07/08/2025 5:01 PM [facility] PO2 TEMP CORRECT 165(H) 80 - 105 mm Hg 07/08/2025 5:01 PM [facility] SPECIMEN SOURCE, GASES POC Arterial 07/08/2025 5:01 PM [facility] CALCIUM IONIZED POC 4.5(L) 4.8 - 5.2 mg/dL 07/08/2025 5:01 PM [facility] TCO2 (CALC) POC 21(L) 23 - 27 mmol/L 07/08/2025 5:01 PM [facility] FIO2 40.0 21.0 - 100.0 % 07/08/2025 5:01 PM [facility] Comment:FIO2 values reported <21.0 indicate O2 flow in Liters/minute. Values >/= 21.0 indicate percent O2. P/F RATIO POC 413 07/08/2025 5:01 PM CDT [facility] Comment: P/F Ratio Interpretation ARDS SEVERITY PaO2/FiO2 Mild 200-300 Moderate 100-200 Severe <100 PEEP POC 6 07/08/2025 5:01 PM CDT [facility] PUNC SITE POC ART PUNCT 07/08/2025 5:01 PM CDT [facility] Blood, arterial 07/08/2025 5 :01 PM CDT 07/08/2025 5:03 PM CDT Stormy Mittal MD ABG ORDERABLES Final Result [facility] CLIA # [id number] [id number] [place] [address] from Last 3 Months Insurance [place]ICAID [place] [employer] [facility] Advance Directives For more information, please contact: [phone] * Full Code (Latest Code Status on File) Date Activated Date Inactivated Comments 07/10/2025 10:39 AM 07/15/2025 2:55 PM * Default Full Code - Needs Discussion Date Activated Date Inactivated Comments 07/08/2025 4:52 PM 07/10/2025 10:39 AM Care Teams Staple Laster Relationship Specialty Start Date End Date Non-Staff, Physician NO ADDRESS ON FILE PCP - General 04/15/12
--- OUTSIDE RECORDS SUMMARY | 2025-08-12 21:36 | XMS_ITS | Encounter Summary ---
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
--- OUTSIDE RECORDS SUMMARY | 2025-08-12 21:36 | XMS_ITS | Encounter Summary ---
Author Organization [facility] Address [address] [place] [address] Care Team Providers Care Tug Boat Captain Name Role Phone Non-Staff, Physician Primary Care Provider Unava ilable Encounter Details Date Type Department Care Team (Latest Contact Info) Description 03/29/1998 Outpatient Historical [facility] Elias Chow Jr., MD [address] [place] [address] Symptomatic menopausal or female climacteric states (Primary Dx) Social History Tobacco Use Types Packs/Day Years Used Date Smoking Tobacco: Never Assessed Comments Unknown Sex and Gender Information Value Date Recorded Sex Assigned at Not on file 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
--- OUTSIDE RECORDS SUMMARY | 2025-08-12 21:36 | XMS_ITS | Clinical Summary ---
Author Organization [facility] Address [address] [place] [facility] [place] [address] Phone Care Team Providers Care Valve Seater Operator Name Role Phone Non-Staff, Physician Primary [...] tablet Take 25 mcg by mouth daily recycling attendant. 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 Gender Identity Not on file Sexual Orientation Not on file Occupation Industry Job Start Date Job End Date Not on file Not on file Not on file Not on file Last Filed Vital Signs Vital Sign Reading Time Taken Comments Blood Pressure 140/82 11/17/2012 8:44 AM COURTESY CAR DRIVER Pulse 74 11/17/2012 8:44 AM COURTESY CAR DRIVER Temperature - - Respiratory Rate - - Oxygen Saturation - - Inhaled Oxygen Concentration - - Weight 66.2 kg (146 lb) 11/17/2012 8:44 AM COURTESY CAR DRIVER Height 162.6 cm (5' 4 ) 11/17/2012 8:44 AM COURTESY CAR DRIVER Body Mass Index 25.06 11/17/2012 8:44 AM COURTESY CAR DRIVER Plan of Treatment Health Maintenance Due Date [...] 2036 [address] [place] [address] MEDICARE PART A AND B [place] Care Teams Valve Seater Operator Relationship Specialty Start Date End Date Non-Staff, Physician NO ADDRESS ON FILE PCP - General 04/15/12
--- OUTSIDE RECORDS SUMMARY | 2025-08-12 21:36 | XMS_ITS | Encounter Summary ---
Author Organization [facility] Address [address] 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
--- OUTSIDE RECORDS SUMMARY | 2025-08-12 21:36 | XMS_ITS | Encounter Summary ---
Author Organization [facility] Address [address] [place] [address] Care Team Providers Care Poker Supervisor Name Role Phone Non-Staff, Physician Primary Care Provider Unava ilable Encounter Details Date Type Department Care Team (Latest Contact Info) Description 08/12/2001 Outpatient Historical [facility] Cody Lofton MD [address] [place] [address] Headache(784.0) (Primary Dx); Cervicalgia Social History Tobacco Use Types Packs/Day Years Used Date Smoking Tobacco: Never Assessed Comments Unknown Sex and Gender Information Value Date Recorded Sex Assigned at Not on file 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
--- OUTSIDE RECORDS SUMMARY | 2025-08-12 21:36 | XMS_ITS | Encounter Summary ---
Author Organization [facility] Address [address] [place] [address] Care Team Providers Care Power System Engineer Name Role Phone Non-Staff, Physician Primary Care Provider Unava ilable Encounter Details Date Type Department Care Team (Latest Contact Info) Description 08/19/[address] 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
--- OUTSIDE RECORDS SUMMARY | 2025-08-12 21:36 | XMS_ITS | Encounter Summary ---
Author Organization [facility] Address [address] [place] [address] Care Team Providers Care Review Rn Name Role Phone Non-Staff, Physician Primary Care Provider Unava ilable Encounter Details Date Type Department Care Team (Late st Contact Info) Description 06/13/[address] [facility] [address] [place] [address] Martell Baugh MD NO ADDRESS ON FILE MYALGIA AND MYOSITIS NOS (Primary Dx) Social History Tobacco Use Types Packs/Day Years Used Date Smoking Tobacco: Never Assessed Comments Unknown Sex and Gender Information Value Date Recorded Sex Assigned at Not on file 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
--- OUTSIDE RECORDS SUMMARY | 2025-08-12 21:36 | XMS_ITS | Encounter Summary ---
Author Organization [facility] Address [address] [place] [address] Care Team Providers Care Assisted Living Coordinator Name Role Phone Non-Staff, Physician Primary Care Provider Unava ilable Encounter Details Date Type Department Care Team (Late st Contact Info) Description 01/27/2012 Ancillary Orders [facility] 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
--- OUTSIDE RECORDS SUMMARY | 2025-08-12 21:36 | XMS_ITS | Encounter Summary ---
Author Organization [facility] Address [address] [place] [address] Phone Care Team Providers Care Belt Brander Name Role Phone Dav Mayorga DO Primary Care Provider [phone] Encounter Details Date Type Department Care Team (Late st Contact Info) Description 04/18/2025 Orders Only [facility] [address] [place] [address] Serum creatinine above reference range [...] range documented in this encounter Care Teams Belt Brander Relationship Specialty Start Date End Date Dav Mayorga DO [address] [place] [id number] PCP - General Family Medicine 04/17/25 documented as of this encounter
--- OUTSIDE RECORDS SUMMARY | 2025-08-12 21:36 | XMS_ITS | Encounter Summary ---
Author Organization [facility] Address [address] [place] [address] Care Team Providers Care Radiator Tester Name Role Phone Non-Staff, Physician Primary Care Provider Unava ilable Encounter Details Date Type Department Care Team (Latest Contact Info) Description 09/13/2002 Outpatient Historical [facility] [address] [facility] [address] [place] [address] Franklin Welsh MD NO ADDRESS ON FILE SCREENING MAMM-MAILG NEOPL-OTHER (Primary Dx) Social History Tobacco Use Types Packs/Day Years Used Date Smoking Tobacco: Never Assessed Comments Unknown Sex and Gender Information Value Date Recorded Sex Assigned at Not on file 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
--- OUTSIDE RECORDS SUMMARY | 2025-08-12 21:36 | XMS_ITS | Encounter Summary ---
Author Organization [facility] Address [address] [place] [address] Care Team Providers Care Charge Authorizer Name Role Phone Non-Staff, Physician Primary Care Provider Unava ilable Encounter Details Date Type Department Care Team (Latest Contact Info) Description 12/04/1998 Outpatient Historical [facility] Elias Chow Jr., MD [address] [place] [address] Gynecologic examination (Primary Dx); Cystitis, unspecified Social History Tobacco Use Types Packs/Day Years Used Date Smoking Tobacco: Never Assessed Comments Unknown Sex and Gender Information Value Date Recorded Sex Assigned at Not on file 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
--- OUTSIDE RECORDS SUMMARY | 2025-08-12 21:36 | XMS_ITS | Encounter Summary ---
Author Organization [facility] Address 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
--- OUTSIDE RECORDS SUMMARY | 2025-08-12 21:36 | XMS_ITS | Encounter Summary ---
Author Organization [facility] Address 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
--- OUTSIDE RECORDS SUMMARY | 2025-08-12 21:36 | XMS_ITS | Encounter Summary ---
Author Organization [facility] Address [address] 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
--- OUTSIDE RECORDS SUMMARY | 2025-08-12 21:36 | XMS_ITS | Encounter Summary ---
Author Organization [facility] Address [address] [place] [address] Care Team Providers Care Lithographic Photographer Name Role Phone Non-Staff, Physician Primary Care Provider Unava ilable Encounter Details Date Type Department Care Team (Late st Contact Info) Description 02/22/2002 Outpatient [facility] [address] [place] [address] Martell Baugh MD NO ADDRESS ON FILE CERVICALGIA (Primary Dx) Social History Tobacco Use Types Packs/Day Years Used Date Smoking Tobacco: Never Assessed Comments Unknown Sex and Gender Information Value Date Recorded Sex Assigned at Not on file 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
--- OUTSIDE RECORDS SUMMARY | 2025-08-12 21:36 | XMS_ITS | Data Portability ---
Author Organization [facility] Elvia Humphrey, [facility] Address [address] [address] Assessment No assessment recorded. Plan of Treatment [...] By Organization Details Last Modified Time 07/17/2025 [id number] Limited records. Planning for therapy at [facility] with goal of returning home. Labs on Thursday. [email or web address] Not available 07/17/2025 18:07:39 07/26/2025 [id number] Discussed poor kidney function and how certain medications affect it worse than others. Will stat 10 meq potassium daily. Start benadryl bid prn, and tramadol bid prn. Labs on Thursday. [email or web address] Not available 07/26/2025 14:59:49 Reason for Referral None Reported. Problems Name Problem SNOMED Code Status Onset Date Resolution Date Notes Provider Name and Address Organization Details Recorded Time Post-discharg e follow-up 347731557 [facility] Metabolic encephalopath y 26118160 Active 2024 [facility] 18:07:02 Chronic obstructive pulmonary disease 05691951 Active 2024 [facility] 09/22/202 5 18:07:02 Hypertensive heart failure 78118598 Active 2024 [facility]ARE[facility] 5 18:07:03 Fibromyalgia 543518659 [facility] 18:07:06 Hyperlipidemi a 40534979 Active 2024 [facility] 18:07:06 Problem Notes None [...] Address Organization Details Last Updated DateTime 5 83426.5 3 g 86 /min 18 /min 97.6 [degF] 91 % 91 % 132/90 mm[Hg] [facility] 5 18:04:41 Date Recorded Body weight Heart rate Respiratory rate Body temperature Oxygen saturation Oxygen saturation in Arterial blood by Pulse oximetry Systolic And Diastolic Provider Name and Address Organization Details Last Updated DateTime 5 03688.7 9 g 72 /min 18 /min 96.4 [degF] 99 % 99 % 154/98 mm[Hg] [facility] 5 14:55:32 Social History None recorded. [...] ICD10 Code Diagnosis IMO Codes Diagnosis Note [id number] Babak Duarte DO [facility] ([facility]) [address] [place] [address] 07/17/2025 15:43:50 07/19/2025 11:23:12 Post-discharge follow-up 506292415 Z09 222567 Metabolic encephalopathy 73395869 G93.41 386977 Chronic ob structive pulmonary disease 21403060 J44.9 319423449 Hypertensi ve heart failure 06401037 I11.0 869353 Fibromyalgia 212438159 M 79.7 73099 Hyperlipidemia 78409546 E78.5 [id number] Babak Duarte [facility] ([facility]) [address] [place] [address] 07/26/2025 11:58:37 07/27/2025 14:43:01 Hypertensive heart failure 10181093 I11.0 655707 Chronic ob structive pulmonary disease 28996379 J44.9 [id number] Health Concerns Section Related Observation LastModified by Organization Detai ls LastModified Time None Recorded Concern Status LastModified by Organization Details LastModified Time None Recorded Advance Directives Directive None Recorded Payers Insurance Date Sequence Insurance Name Policy Number Policy Saba Covered Member ID Saba Member ID Guarantor Name 07/26/2025 [place] [facility] Rosenda Cardonafort thomas [id number] Rosenda [facility] 08/11/2025 2 [place] Rosenda Cardonafort thomas [id number] Rosenda [facility] 07/17/2025 1 *SELF PAY* Holger vitale Brendanfort thomas 07/26/2025 1 [employer] (MEDICARE REPLACEMENT/ ADVANTAGE - PPO) Rosenda Back [facility] [id number] Rosenda [facility] Notes Date Note Type Note Provider Name and Address Organization Details Recorded Time 07/17/2025 text/html COPDReported by PatientHPI:For duration, patient reportshas noted for years. For severity, patient reportssevere.ROS as noted in the HPI new admit to snf after hospital stay. Babak Duarte DO [address] [place] [address], [phone], [facility] 07/18/2025 09:00:19 07/26/2025 text/html COPDReported by PatientHPI:For duration, patient reportshas noted for years. For severity, patient reportssevere.ROS as noted in the HPI discuss labs and sinus medication. Babak Duarte DO [address] [place] [address], [phone], [facility] 07/26/2025 15:04:12 OBGyn Episode No OBEpisode recorded.
--- OUTSIDE RECORDS SUMMARY | 2025-08-12 21:36 | XMS_ITS | Encounter Summary ---
Author Organization [facility] Address 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
--- OUTSIDE RECORDS SUMMARY | 2025-08-12 21:36 | XMS_ITS | Encounter Summary ---
Author Organization [facility] Address [address] [place] [address] Care Team Providers Care Trimmer Operator Name Role Phone Non-Staff, Physician Primary Care Provider Unava ilable Encounter Details Date Type Department Care Team (Latest Contact Info) Description 11/19/2001 Outpatient Historical [facility] Luis Felipe Sanford MD [address] [place] [address] CERVICALGIA (Primary Dx); EDEMA Social History Tobacco Use Types Packs/Day Years Used Date Smoking Tobacco: Never Assessed Comments Unknown Sex and Gender Information Value Date Recorded Sex Assigned at Not on file Legal Sex Female 7:06 AM [employer] Gender Identity Not on file Sexual Orientation Not on file documented as of this encounter Plan of Treatment Not on file documented as of this encounter Visit Diagnoses Diagnosis Cervicalgia- Primary Edema documented in this encounter Care Teams Trimmer Operator Relationship Specialty Start Date End Date Non-Staff, Physician NO ADDRESS ON FILE PCP - General 04/15/12 documented as of this encounter
[2025-08-12 21:42] VITALS: BP 145/78; PULSE 61; RESP 16; TEMP 36.6; O2SAT 97
--- NOTE | 2025-08-12 21:44 | XRR_ITS ---
PROCEDURE INFORMATION: Exam: XR Left Humerus Exam date and time: 08/12/2025 10:27 PM Age: 65 years old Clinical indication: Injury or trauma; Blunt trauma (contusions or hematomas); Arm, upper; Prior surgery; Surgery date: 6+ months; Surgery type: Spinal fusion; EMS arrival for fall off of toilet. C/O left upper arm pain. TECHNIQUE: Imaging protocol: Radiologic exam of the left humerus. Views: 2 or more views. COMPARISON: CR (CHEST, ) 07/08/2025 1:32 AM FINDINGS: Bones/joints: Normal. Soft tissues: Normal. XR/[place] [id number] IMPRESSION: No acute findings.
--- NOTE | 2025-08-12 21:44 | CTR_ITS ---
PROCEDURE INFORMATION: Exam: CT Head Without Contrast Exam date and time: 08/12/2025 10:38 PM Age: 65 years old Clinical indication: Injury or trauma; Blunt trauma (contusions or hematomas); EMS arrival for fall off of toilet with left sided headstrike. C/O head and neck pain. ; Additional info: Fall/hit head TECHNIQUE: Imaging protocol: Computed tomography of the head without contrast. Radiation optimization: All CT scans at this facility use at least one of these dose optimization techniques: automated exposure control; mA and/or kV adjustment per patient size (includes targeted exams where dose is matched to clinical indication); or iterative reconstruction. COMPARISON: CT head wo con* [id number] 07/06/2025 1:52 AM RADIATION DOSE METRICS: Total DLP (mGy-cm): 893.33 FINDINGS: Brain: No focal hemorrhage or midline shift is identified. The ventricles and parenchyma show mild atrophy and chronic bicerebral white matter ischemic change. Cerebral ventricles: No ventriculomegaly or evidence of hydrocephalus. Paranasal sinuses: A few areas of mild sinus mucosal thickening. Mastoid air cells: Visualized mastoid air cells are well aerated. Bones: No displaced skull fracture is noted. Soft tissues: Prominent left vertex scalp hematoma. Vasculature: Diffuse vascular calcifications are present. CT/CT head wo con* [id number] IMPRESSION: 1. No acute intracranial abnormality. 2. Prominent left vertex scalp hematoma. 3. Mild age-related changes.
--- NOTE | 2025-08-12 21:44 | CTR_ITS ---
PROCEDURE INFORMATION: Exam: CT Cervical Spine Without Contrast Exam date and time: 08/12/2025 10:40 PM Age: 65 years old Clinical indication: Injury or trauma; Blunt trauma; Prior surgery; Surgery date: 6+ months; Surgery type: Spinal fusion; EMS arrival for fall off of toilet with left sided headstrike. C/O head and neck pain. ; Additional info: Fall/hit head TECHNIQUE: Imaging protocol: Computed tomography of the cervical spine without contrast. Radiation optimization: All CT scans at this facility use at least one of these dose optimization techniques: automated exposure control; mA and/or kV adjustment per patient size (includes targeted exams where dose is matched to clinical indication); or iterative reconstruction. COMPARISON: MR cervical spin wo con* [id number] 03/24/2024 11:59 AM RADIATION DOSE METRICS: Total DLP (mGy-cm): 228.87 FINDINGS: Bones: No acute fracture. There is mild cervical degenerative change with loss of disc space and osteophyte formation most pronounced at C5-C6. No jumped, locked or perched facets are visualized. No aggressive bone lesion is noted. Diffuse osseous heterogeneity again seen. This is rather nonspecific. Topogram shows thoracic fusion, partially imaged. Lungs: Lung apices show no acute process. Vasculature: Advanced diffuse vascular calcification noted. Soft tissues: Unremarkable. CT/CT cervical spin wo con* [id number] IMPRESSION: 1. No acute fracture is seen in the cervical spine. 2. Mild cervical degenerative change as discussed. Other chronic findings above.
--- NOTE | 2025-08-12 21:44 | XRR_ITS ---
PROCEDURE INFORMATION: Exam: XR Left Knee Exam date and time: 08/12/2025 10:27 PM Age: 65 years old Clinical indication: Injury or trauma; Blunt trauma; EMS arrival for fall off of toilet. C/O left knee pain. TECHNIQUE: Imaging protocol: Radiologic exam of the left knee. Views: 3 views. COMPARISON: CR (LOW EXM, ) 08/14/2024 11:54 PM FINDINGS: Bones/joints: Severe joint space narrowing in the lateral compartment of the left knee. No acute fracture. No joint effusion. Soft tissues: Normal. XR/XR knee LT 3V* [id number] IMPRESSION: No acute fracture.
--- NOTE | 2025-08-12 21:45 | XRR_ITS ---
PROCEDURE INFORMATION: Exam: XR Chest Exam date and time: 08/12/2025 10:27 PM Age: 65 years old Clinical indication: Injury or trauma; Blunt trauma (contusions or hematomas); Prior surgery; Surgery date: 6+ months; Surgery type: Spinal fusion; EMS arrival for fall at home. History of chf. TECHNIQUE: Imaging protocol: Radiologic exam of the chest. Views: 1 view. COMPARISON: CR (CHEST, ) 07/08/2025 1:32 AM FINDINGS: Tubes, catheters and devices: Posterior fusion partially visualized extending from T 4 inferiorly off the field of view. Lungs: No focal consolidation. Pleural spaces: Unremarkable. No pleural effusion. No pneumothorax. Heart/Mediastinum: Unremarkable. No cardiomegaly. Bones/joints: Unremarkable. XR/XR chest 1V portable [id number] IMPRESSION: No focal consolidation.
--- NOTE | 2025-08-12 21:51 | ED_ITS ---
HPI - Fall 2 General: Chief Complaint: Fall Stated Complaint: FALL Time Seen by Provider: 08/12/25 21:34 Source: patient and old records reviewed Mode of arrival: EMS Limitations: no limitations History of Present Illness: Patient is a 65-year-old female who presents the emergency department ambulance due to a fall that occurred prehospital. She was on the toilet, was reportedly reaching for toilet paper when she slipped off the toilet and struck her head and left side. She states that she had profuse bleeding from her scalp at the time, was able to crawl herself to the bed and call for help. She states that she thinks she passed out, unsure if she passed out prior to falling or from hitting her head. She had no symptoms preceding the incident, states she was not straining and did not stand up preceding the fall. She had no chest pain, shortness of breath, dizziness, or lightheadedness beforehand. No palpitations. She did strike the back of her head, do not see any blood thinners in her med list. Bleeding controlled on arrival though there is a large laceration to the scalp. She is also noting severe pain to her left humerus and left knee. She is not demonstrating any focal neurological deficit, no unilateral weakness or numbness. No facial droop. No visual changes reported. She is not confused, fully alert and oriented x 4 and normally ambulatory. She states that she just wants to make sure everything is okay and she is not injured and then wants to go home. She is not having any active chest pain or shortness of breath at this time. Her vitals are stable. States her pain is controlled but would like a tramadol. complaint: fall Onset (ago): minute(s) Fall from: other (Off of toilet) Place fall occurred: home Loss of consciousness: Unsure Prolonged down time: no Symptoms prior to fall: none Location of injury: head Location of injury - extremities: Left: arm and knee Associated symptoms-after fall: Denies abdominal pain, chest pain, headache(s), lightheadedness or neck pain Related Data Home Medications ?Medication ?Instructions ?Recorded ?Confirmed potassium gluconate 595 mg (99 mg) 595 mg PO TID@08,15 ,22 03/12/20 08/09/25 tablet szmesjq-obxdtruvgkwkc-fqpalwga 250 1 tab PO Q6H PRN Han in 09/14/24 08/09/25 mg-250 mg-65 mg tablet (Excedrin Extra Strength) glycopyrrolate 1 mg tablet 1 mg PO TID 05/14/25 (Robinul) irbesartan 75 mg tablet 75 mg PO DAILY 07/06/2507/26 omeprazole 20 mg capsule,delayed 20 mg PO DAILY 08/09/25 release Previous Rx's ?Medication ?Instructions ?Recorded baclofen 10 mg tablet See Rx Instructions .Route 0 12/19/24 .COMPLEX #360 tabs carvedilol 6.25 mg tablet (Coreg) 6.25 mg PO Q12H #180 tabs 12/19/24 fenofibrate micronized 134 mg 134 mg PO DAILY@15 #90 c aps 12/19/24 capsule gabapentin 800 mg tablet 800 mg PO TID #360 tabs 11/27 02/17 levothyroxine 50 mcg tablet 50 mcg PO DAILY@1500 #90 t abs 12/19/24 linaclotide 145 mcg capsule 145 mcg PO BEDTIME #90 cap s 12/19/24 (Linzess) paroxetine HCl 30 mg tablet 30 mg PO DAILY #90 tabs syringe with needle 3 mL 25 gauge #5 ea 12/19/24 x 1 (BD Luer-Rae Syringe) terconazole 0.4 % vaginal cream 1 appful vaginal .at b edtime #45 06/27/25 grams Allergies Allergy/AdvReac Type Severity Reaction Status Date / Time atorvastatin (From Lipitor) Allergy Unknown known Verified 08/09/25 15:24 ezetimibe (From Zetia) Allergy Unknown unknown Verified 08/09/25 15:24 rosuvastatin (From Crestor) Allergy Unknown unknown Verified 08/09/25 15:24 Ujqmydm-MXO-XaO Reductase Allergy Unknown Unknown Verified 08/09/25 15:24 Inhibitor (Floyavp-Fbf-Lyj Reductase Inhibitor) Sulfa (Sulfonamide Allergy Unknown Unknown Verified 08/09/25 15:24 Antibiotics) sumatriptan (From Imitrex) Allergy Unknown known Verified 08/09/25 15:24 IV contrast dye Allergy ALGY-Anaphy Uncoded 08/09/25 15:24 laxis Review of Systems 2 General: Reports: 10 or more systems reviewed and unremarkable except in HPI and below Const: Reports: other (reports fall, head injury); Denies: fever(s), chills or fatigue Eyes: Denies: change in vision ENMT: Denies: throat pain, ear or mastoid pain or nasal discharge Card: Denies: chest pain, palpitations, swelling of feet/ankles or lightheadedness Resp: Denies: dyspnea, productive cough or wheezing GI: Denies: abdominal pain, nausea, vomiting, diarrhea or constipation : Denies: flank pain, difficulty voiding, dysuria or urinary frequency Musc: Reports: extremity pain (left arm) and joint pain (left knee); Denies: neck pain or back pain Skin/Breast: Reports: new lesions (scalp laceration); Denies: rash Neuro: Denies: headache(s), numbness in extremities, weakness in extremities, dizziness, Slurred speech present, seizure-like activity or involuntary movements PFSH ED 2 PFSH: Medical History Pneumonia COPD (chronic obstructive pulmonary disease) Dehydration Hyperkalemia Acute kidney injury superimposed on CKD Altered mental status Anxiety, generalized CHF (congestive heart failure), NYHA class III Constipation, slow transit 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 CAD (coronary artery disease) Vitamin B12 deficiency Essential (primary) hypertension Gastric reflux Fibromyalgia muscle pain Osteopenia of multiple sites Chronic bilateral low back pain with bilateral sciatica Vitamin D deficiency Mixed hyperlipidemia Adult onset hypothyroidism Hypotension, unspecified Neuropathic pain of both legs Surgical History History of back surgery History of cholecystectomy History of tonsillectomy History of hysterectomy Family History Other Arthritis Coronary artery disease involving [place] coronary artery of [place] heart with unstable angina pectoris Diabetes Hypertension Thyroid disease Social History Smoking and tobacco/nicotine status: never used tobacco/nicotine Second hand smoke exposure: Yes Alcohol intake: never Substance/Drug Use: unknown Adopted: No Caregiver/support person: Yes Lives independently: No Household members: family Housing: House Marital status: service: No Current occupational status: disabled Do you think of yourself as: Straight/Heterosexual Current gender identity: Female Physical Exam 2 Const: COMMON NORMALS: no acute distress, patient oriented x3 and no limitations GENERAL APPEARANCE: cooperative, comfortable and well developed ORIENTATION/CONSCIOUSNESS: Yes awake, Yes oriented to person, Yes oriented to place and Yes oriented to time HENMT: COMMON NORMALS: hearing grossly normal bilaterally and Normal external nose present HEAD & SCALP: hematoma and laceration left parietal Details of head laceration: L-shaped, flap and superficial; not actively bleeding Head laceration size: 5 cm; no Boyer's sign, no palpable skull fracture and no raccoon eyes FACE & SINUS: normal facial exam and face symmetric NOSE: Normal external nose present Eye: COMMON NORMALS: Equal, round and reactive pupils present, EOMs intact bilaterally and conjunctivae normal CONJUNCTIVA: Yes conjunctivae normal P UPIL: Yes Equal, round and reactive pupils present Neck/C-Spine: COMMON NORMALS: full ROM, supple and no JVD OTHER: No reproducible tenderness to palpation of the cervical spine, full range of motion Chest: COMMONS NORMALS: normal inspection of the chest and normal palpation of entire chest wall Resp: COMMON NORMALS: normal respiratory effort, No retractions, No use of accessory muscles and clear to auscultation bilaterally AUSCULTATION: clear to auscultation bilaterally Cardio: COMMON NORMALS: no JVD, regular rate, regular rhythm, No clicks present (Cardio), No murmurs present (Cardio) and No rub (Cardio) RATE: r egular rate RHYTHM: regular rhythm GI: COMMON NORMALS: Normal to inspection, nondistended, normoactive bowel sounds present, Soft to palpation and non-tender AUSCULTATION: Yes normoactive bowel sounds PALPATION: Yes Soft to palpation RECTAL EXAM: d eferred Extremity: COMMON NORMALS: full ROM and capillary refill normal NARRATIVE EXTREMITY EXAM: Tender to palpation to the left humerus, there is small abrasion noted. Full range of motion at the shoulder and elbow joint. Neurovascular exam of the left upper extremity is unremarkable. Abrasion to left knee Neuro: COMMON NORMALS: patient oriented x3, CN's II-XII intact bilaterally, moves all extremities, no focal motor deficits and no sensory deficits noted SENSORIUM/ORIENTATION: Yes oriented to person, Yes oriented to place and Yes oriented to time MOTOR EXAM: 5/5 motor strength present throughout, Pronator motor function not present, no tremor noted and Normal motor muscle tone present throughout Skin: COMMON NORMALS: no rashes or lesions noted GENERAL SKIN EXAM: no rashes or lesions noted Course 2 Vital Signs: Vital signs: Vital Signs Temperature 97.9 F 08/12/25 21:42 Pulse Rate 67 08/12/25 23:52 Respiratory Rate 16 08/12/25 23:52 Blood Pressure 159/96 08/12/25 23:52 Pulse Oximetry 97 08/12/25 23:52 Oxygen Delivery Me thod Room Air 08/12/25 22:30 MDM - Fall Medical Decision Making This patient presented by ambulance for a fall while sitting on the toilet, she fell onto her left side also suffered laceration to her scalp with bleeding controlled on arrival though noted to be significant amount of bleeding on scene. There was reported to me that she slipped off, however patient then states to me later that she thinks she may have blacked out and this caused her to fell off, ultimately is poor historian in regards to this. Recently was seen here for urinary retention, she states that she has been making urine normally and that this issue has seemingly resolved. She has no focal neurological deficit on exam, is reporting pain to left arm and left knee as well as to her head and neck. Immediately with initial history and physical she had stated she wanted to just make sure nothing was broken and then wanted to go home. Family arrives and tells me that they are setting her up with rehab facility early next week due to her recurrence of falls and that she lives alone and has not been eating as much. Patient is her own POA and adamantly states she will not be admitted if she does not have to be. CT head neck showing no acute or emergent findings. X-rays of the left humerus, left knee, and chest x-ray are all unremarkable. Her first troponin is 30, unchanged from previous values but she denies the 2-hour troponin value because she wants to leave. There is mild elevation in her creatinine to BUN, but as mentioned she is continue to make urine and there is no UTI. She is ambulated and does well, and I offered her admission again but she denies and family states that they will take her home and establish her with rehab as an outpatient. Patient is allowed discharge at this time. Lab Data 08/12/25 22:09 08/12/25 22:09 Radiology Impressions Cervical Spine CT 08/12/25:44 IMPRESSION: 1. No acute fracture is seen in the cervical spine. 2. Mild cervical degenerative change as discussed. Other chronic findings above. Head CT 08/12/25 21:44 IMPRESSION: 1. No acute intracranial abnormality. 2. Prominent left vertex scalp hematoma. 3. Mild age-related changes. Humerus X-Ray 08/12/25 21:44 IMPRESSION: No acute findings. Knee X-Ray 08/12/25 21:44 IMPRESSION: No acute fracture. Chest X-Ray 08/12/25 21:45 IMPRESSION: No focal consolidation. Laboratory Results WBC 5.51 10^3/uL (3.29-11.43) 08/12/25 22:09 RBC 4.27 10^6/uL (3.85-5.65) 08/12/25 22:09 Hgb 13.90 g/dL (11.27-16.99) 08/12/25 22:09 Hct 43.5 % (36-47) 08/12/25 22:09 MCV 101.9 fl (85-98) H 08/12/25 22:09 MCH 32.6 pg (27-33) 08/12/25 22:09 MCHC 32.0 g/dL (30-55) 08/12/25 22:09 RDW 14.5 % (12.1-15.1) 08/12/25 22:09 Plt Count 185 10^3/cmm (157-399) 08/12/25 22:09 MPV 11.0 fL (7.4-10.4) H 08/12/25 22:09 Neut % (Auto) 77.9 % 08/12/25 22:09 Lymph % (Auto) 13.2 % 08/12/25 22:09 Phelps % (Auto) 7.4 % 08/12/25 22:09 Eos % (Auto) 0.9 % 08/12/25 22:09 Baso % (Auto) 0.2 % 08/12/25 22:09 Neut # (Auto) 4.29 10^3/uL (1.8-7.7) 08/12/25 22:09 Lymph # (Auto) 0.7 10^3/uL (0.8-4.8) L 08/12/25 22:09 Phelps # (Auto) 0.4 10^3/uL (0.2-0.9) 08/12/25 22:09 Eos # (Auto) 0.1 10^3/uL (0.0-0.8) 08/12/25 22:09 Baso # (Auto) 0.0 10^3/uL (0.0-0.1) 08/12/25 22:09 Nucleated RBC % (auto) 0 % 08/12/25 22:09 Nucleated RBCs # 0.0 /100WBC 08/12/25 22:09 Sodium 137 mmol/L (136-145) 08/12/25 22:09 Potassium 4.4 mmol/L (3.5-5.1) 08/12/25 22:09 Chloride 97 mmol/L (98-107) L 08/12/25 22:09 Carbon Dioxide 26 mmol/L (22-29) 08/12/25 22:09 Anion Gap 18.4 (5-19) 08/12/25 22:09 BUN 45 mg/dL (8-23) H 08/12/25 22:09 Creatinine 1.6 mg/dL (0.5-0.9) H 08/12/25 22:09 GFR Calculation 32.5 mL/min (90-130) L 08/12/25 22:09 Glucose 109 mg/dL (65-115) 08/12/25 22:09 Calculated Osmolality 296 mOsm/kg (285-295) H 08/12/25 22:09 Calcium 9.7 mg/dL (8.5-10.5) 08/12/25 22:09 Total Bilirubin 0.4 mg/dL (0.15-1.2) 08/12/25 22:09 AST 23 U/L (0-32) 08/12/25 22:09 ALT 12 U/L (0-33) 08/12/25 22:09 Alkaline Phosphatase 73 U/L (35-105) 08/12/25 22:09 Troponin T Baseline 30 ng/L (0-10) H 08/12/25 22:09 Total Protein 7.4 g/dL (6.6-8.7) 08/12/25 22:09 Albumin 4.5 g/dL (3.5-5.2) 08/12/25 22:09 Globulin 2.9 g/dL (1.3-4.6) 08/12/25 22:09 Urine Color Yellow (Yellow) 08/12/25 22:20 Urine Appearance Clear (CLEAR) 08/12/25 22:20 Urine pH 5 (5-7) 08/12/25 22:20 Ur Specific [place] 1.015 (1.005-1.030) 08/12/25 22:20 Urine Protein Trace (Negative) 08/12/25 22:20 Urine Glucose (UA) Norm (Normal) 08/12/25 22:20 Urine Ketones Negative (Negative) 08/12/25 22:20 Urine Blood Neg (Negative) 08/12/25 22:20 Urine Nitrate Negative (Negative) 08/12/25 22:20 Urine Bilirubin Neg (Negative) 08/12/25 22:20 Urine Urobilinogen Norm mg/dL (Negative) 08/12/25 22:20 Ur Leukocyte Esterase Negative (Negative) 08/12/25 22:20 Amorphous Sediment Not Reportable 08/12/25 22:20 All radiology interpretation(s) finalized by discharge Discharge Plan Discharge Patient Disposition: Home Clinical Impression: Syncope, vasovagal Fall Qualifiers: Encounter type: initial encounter Qualified Code(s): W19.XXXA - Unspecified fall, initial encounter Laceration of scalp Qualifiers: Encounter type: initial encounter Qualified Code(s): S01.01XA - Laceration without foreign body of scalp, initial encounter Abrasion of knee, left Qualifiers: Encounter type: initial encounter Qualified Code(s): S80.212A - Abrasion, left knee, initial encounter Contusion of arm, left Qualifiers: Encounter type: initial encounter Qualified Code(s): S40.022A - Contusion of left upper arm, initial encounter Condition: Stable Prescriptions: No Action baclofen 10 mg tablet See Rx Instructions .ROUTE .COMPLEX Qty: 360 1RF Rx Instructions: Take 1 tablet by mouth in the morning, 1 tablet at 3pm, and 2 tablets at 10pm. carvedilol [Coreg] 6.25 mg tablet 6.25 mg PO Q12H Qty: 180 1RF Rx Instructions: must administer with a meal fenofibrate micronized 134 mg capsule 134 mg PO DAILY@15 Qty: 90 1RF gabapentin 800 mg tablet 800 mg PO TID Qty: 360 1RF levothyroxine 50 mcg tablet 50 mcg PO DAILY@1500 Qty: 90 1RF Linzess 145 mcg capsule 145 mcg PO BEDTIME Qty: 90 1RF paroxetine HCl 30 mg tablet 30 mg PO DAILY Qty: 90 1RF (DME) BD Luer-Rae Syringe 3 mL 25 gauge x 1 syringe See Rx Instructions .ROUTE .MEDSUPPLY Qty: 5 0RF Rx Instructions: monthly terconazole 0.4 % cream 1 appful vaginal .at bedtime Qty: 45 0RF potassium gluconate 595 mg (99 mg) Tablet 595 mg PO TID@08,15,22 fyxlmyk-sbsvrbzhzplrn-eixlenmm [Excedrin Extra Strength] 250-250-65 mg Tablet 1 tab PO Q6H PRN (Reason: Pain) omeprazole 20 mg Capsule,Delayed Release(Dr/Ec) 20 mg PO DAILY irbesartan 75 mg Tablet 75 mg PO DAILY glycopyrrolate [Robinul] 1 mg tablet 1 mg PO TID Discharge Orders: Discharge ED (Routine); Ordered 08/12/25 Ordered By: Elias Alexandre Referrals: Hitesh Pal, TONI [Primary Care Provider, [facility]] Patient Instructions: Patient Portal & Evelia Instructions Activity Restrictions/Additional Instructions: Please follow-up with primary care provider and please keep plan for nursing rehab placement early next week. Your head and neck CT today were negative for any concerning emergent findings, please routine scalp care as you wash with mild soap and water and pat dry afterwards. Care with switching positions and with ambulating to avoid any further falls. If you do have any recurrent falls, worsening of condition, or any other concerning symptoms please return to the ED as we discussed for reevaluation. Continue taking home medications. Ice to the extremities for any swelling, and may take Motrin or Tylenol for pain. Print Language: Maltese Coding Level of Care Code ED Human Factors Ergonomist for Antonia Medina
[2025-08-12 21:56] VITALS: BP 140/80; PULSE 64; O2SAT 97
--- NOTE | 2025-08-12 22:02 | ECG_ITS ---
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 Measurements Intervals [place] Rate: 60 P: 82 WI: 169 QRS: 13 QRSD: 81 T: 50 QT: 391 QTc: 391 Interpretive Statements SINUS RHYTHM Compared to ECG 08/09/2025 20:55:55 No significant changes Electronically Signed On 08-15-2025 19:32:09 CDT by Carrie Tesfaye M.D. [email or web address]
[2025-08-12 22:25] LABS: Add Urine Microscopic? NO
[2025-08-12 22:30] VITALS: BP 120/86; PULSE 62; O2SAT 98
[2025-08-12 22:33] LABS: Hematocrit 43.5 % (36-47); Hemoglobin 13.90 g/dL (11.27-16.99); Mean Corpuscular HGB Conc 32.0 g/dL (30-55); Mean Corpuscular Hemoglobin 32.6 pg (27-33); Mean Corpuscular Volume 101.9 fl (85-98); Nucleated Red Blood Cells % 0 %; Platelet Count 185 10^3/cmm (157-399); Red Blood Count 4.27 10^6/uL (3.85-5.65); White Blood Count 5.51 10^3/uL (3.29-11.43)
[2025-08-12 22:54] LABS: Specific Gravity, Urine 1.015 (1.005-1.030)
[2025-08-12 22:55] LABS: Charge for UA Resulting for Rev; Glucose Urine UA Norm (Normal); Nitrate Urine Negative (Negative)
[2025-08-12 22:58] LABS: Alanine Aminotransferase 12 U/L (0-33); Albumin Level 4.5 g/dL (3.5-5.2); Alkaline Phosphatase 73 U/L (35-105); Anion Gap 18.4 (5-19); Aspartate Amino Transferase 23 U/L (0-32); Blood Urea Nitrogen 45 mg/dL (8-23); Calcium 9.7 mg/dL (8.5-10.5); Carbon Dioxide 26 mmol/L (22-29); Chloride 97 mmol/L (98-107); Creatinine Clr Calc Pharmacy 27.4707; Globulin 2.9 g/dL (1.3-4.6); Glucose 109 mg/dL (65-115); Osmolality Calculated 296 mOsm/kg (285-295); Potassium 4.4 mmol/L (3.5-5.1); Sodium 137 mmol/L (136-145); Total Protein 7.4 g/dL (6.6-8.7); Troponin(5th) Baseline 30 ng/L (0-10)
[2025-08-12] MEDS: HYDROcodone-acetaminophen 5-325 mg Tablet 1 TAB PO (23:27)
[2025-08-12 23:52] VITALS: BP 159/96; PULSE 67; RESP 16; O2SAT 97
== END 2025-08-12 23:51 | disposition home or self-care (01) ==
PROVIDERS: Emergency Provider Physician Assistant; PCP Nurse Practitioner
DX: R55 Syncope and collapse (principal); S01.01XA Laceration without foreign body of scalp, initial encounter; S80.212A Abrasion, left knee, initial encounter; S40.022A Contusion of left upper arm, initial encounter; Z79.82 Long term (current) use of aspirin; I25.10 Atherosclerotic heart disease of native coronary artery without angina pectoris; J44.9 Chronic obstructive pulmonary disease, unspecified; E78.2 Mixed hyperlipidemia; I11.0 Hypertensive heart disease with heart failure; I50.9 Heart failure, unspecified; W18.12XA Fall from or off toilet with subsequent striking against object, initial encounter
CPT/HCPCS: 36415; 70450; 71045; 72125; 73060; 73562; 80053; 81003; 84484; 85025; 93005; 96372; 99285; J1885; J9999

== ENCOUNTER 2025-10-11 12:37 | Inpatient (IN) | payer MEDICARE, MEDICAID, SELFPAY ==
--- OUTSIDE RECORDS SUMMARY | 2024-08-20 03:00 | XMS_ITS ---
Author Organization [facility] Address [address] [place] [address] Care Team Providers Care Optical Mechanic Name Role Phone Hitesh Pal APRN Primary Care Provider Unav ailMary Alice Upton Unavailable [phone] Migration, Provider Unavailable Unavailable REASON FOR VISIT EMR-Yanick Encounters Encounter Location Date Provider Diagnosis Migrated_Facility 0 0 08/20/2024 Provider Migration Plan Of Treatment Next Appt Details Provider Name:Madyson Lpóez, 10/30/2025 01:30:00 PM, [address], [place], [address], Provider Name:Mary Alice pineda, 12/19/2025 01:40:00 PM, [address] [place] [address] [address], [place], [address], Progress Notes * Viola ENNISDOB: [birth year] (65 yo F)Acc No.[id number]:08/20/2024 Patient: Nazanin DAVIDViola TAYLOR :1960 A ge:64 Y S ex:Female Address:[address] [address] Subjective: * Chief Complaints: * E MR-Yanick * * Date:
--- OUTSIDE RECORDS SUMMARY | 2024-08-21 03:00 | XMS_ITS ---
Author Organization [facility] Address [address] [place] [address] Care Team Providers Care Reliability Technologist Name Role Phone Hitesh Pal APRN Primary Care Provider Unav Mary Alice Wilder [phone] Migration, Provider Unavailable Unavailable Allergies Allergen (clinical drug ingredient) Drug/Non Drug Allergy documented on EMR Reaction Allergy Type Onset Date Status ezetimibe ezetimibe , Drug Allergy Active sumatriptan Sumatriptan , Drug Allergy Act josey atorvastatin atorvastatin , Drug Allergy A ctive rosuvastatin rosuvastatin , Drug Allergy A ctive REASON FOR VISIT EMR-Yanick Encounters Encounter Location Date Provider Diagnosis Migrated_Facility 0 0 08/21/2024 Provider Migration Plan Of Treatment Next Appt Details Provider Name:Madyson López, 10/30/2025 01:30:00 PM, [address], [place], [address], Provider Name:Mary Alice pineda, 12/19/2025 01:40:00 PM, [address] [place] [address] [address], [place], [address], Progress Notes * Viola ENNISDOB: [birth year] (65 yo F)Acc No.[id number]:08/21/2024 Patient: Nazanin DAVIDViola TAYLOR :1960 A ge:64 Y S ex:Female Address:[address], [place] [address] Subjective: * Chief Complaints: * E MR-Yanick * Allergies: a torvastatin: , - Allergyrosuvastatin: , - AllergySumatriptan: , - Allergyezetimibe: , - Allergy * * Date:
--- OUTSIDE RECORDS SUMMARY | 2025-07-03 06:30 | XMS_ITS ---
Author Organization [facility] Address [address] [place] [address] Care Team Providers Care Coat Tailor Name Role Phone Hitesh Pal APRN Primary Care Provider Unav ailMary Alice Upton Unavailable [phone] Hanna Chaves Unavailable [phone] REASON FOR VISIT GERD, Encounters Encounter Location Date Provider Diagnosis [facility] [address] [place] [address] 07/03/2025 Hanna Chaves Plan Of Treatment Next Appt Details Provider Name:Madyson López, 10/30/2025 01:30:00 PM, [address], [place], [address], Provider Name:Mary Alice pineda, 12/19/2025 01:40:00 PM, [address] [place] [address] [address], [place], [address], Progress Notes * Viola ENNISDOB: [birth year] (65 yo F)Acc No.[id number]:07/03/2025 History and Physical Patient: Viola Elizabeth Provider: Shari Chaves MD :1960 A ge:65 Y S ex:Female Date:07/03/2025 Address:[address], [place] Pcp:Hitesh Pal APRN Subjective: * Chief Complaints: * G ERD, Billing Information: * Procedure Codes: * Electronic signature of Gregg Chaves MD on 10/11/2025 at 01:36 PM RESEARCH GENETICIST Sign off status: Pending * Provider: Shari Chaves MD Date: 0 07/03/2025 Generated for Margot hernandez/Francisco J/Kartikitting on: 1 12/12/2024 01:36 PM RESEARCH GENETICIST
--- OUTSIDE RECORDS SUMMARY | 2025-09-26 07:30 | XMS_ITS ---
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 referral for urinary retention and hydronephrosis Encounters Encounter Location Date Provider Diagnosis [facility] [address] [place] [address] [facility] [address] [place] [address] 09/26/2025 Madyson Reyes Plan Of Treatment Next Appt Details Provider Name:Madyson López, 10/30/2025 01:30:00 PM, [address], [place], [address], Provider Name:Mary Alice pineda, 12/19/2025 01:40:00 PM, [address] [place] [address] , [address], [place], [address], Progress Notes * Viola ENNISDOB: [birth year] (65 yo F)Acc No.[id number]:09/26/2025 Progress Notes Patient: Nazanin hernandesViola stiles Provider: REDDY Rangel :1960 A ge:65 Y S ex:Female Date:09/26/2025 Address:[address] [place] [address], [place]-[id number] Pcp:Hitesh Pal APRN Subjective: * Chief Complaints: * N p referral for urinary retention and hydronephrosis * Electronic signature of REDDY Ness on 10/11/2025 at 01:36 PM SOILS TECHNICIAN Sign off status: Pending * Provider: REDDY Rangel Date: 11/27/2024 Generated for Margot hernandez/Francisco J/Maura on: 12/12/2024 01:36 PM SOILS TECHNICIAN
[2025-10-11] VITALS (8 sets, daily range): BP systolic 145–185; BP diastolic 96–105; PULSE 72–94; RESP 13–17; TEMP 36.8–37.2; O2SAT 85–95; BMI 20.7
--- NOTE | 2025-10-11 12:39 | XR_ITS ---
WS: [id number] Portable AP supine chest, 10/11/2025 Clinical Data: dyspnea/cough Comparison: Portable chest, 08/12/2025 Findings: No nodules, masses or effusions are seen. The heart is normal. The pulmonary vascularity is not increased. No pneumonia or pneumothorax is seen. The aortic arch is minimally tortuous. There is a posterior thoracic lumbar fusion. Monitor leads are on the chest wall. XR/XR chest 1V portable [id number] Impression: Atherosclerosis.
--- NOTE | 2025-10-11 12:54 | W.ED.WEAKNES ---
HPI - Weakness General: Chief complaint: Weakness Stated complaint: Weakness Time Seen by Provider: 10/11/25 12:38 History of Present Illness: 65-year-old female presents to the emergency room via EMS. She has a history of previous possible stroke and there was a question of seizures. She had a brainstem injury and anoxic brain injury evidently as well. She left [facility] days ago EMS reports family states she has progressively gotten worse over the last couple of days EMS have been called out for assistance several times which she refused to be transported. Now she is only answering yes and no to questions. Any other questions that she continues to answer yes and no to. Last known well is difficult to pin down is definitely outside of 24 hours maybe as many as 48-72 Family arrived later was able to confirm with him last known well of yesterday morning around 7:00 at past. They refused transportation yesterday afternoon. She last took her medications either Thursday night or yesterday morning. Associated symptoms: Denies chest pain, chills, dysuria or fever(s) Related Data Home Medications ?Medication ?Instructions ?Recorded ?Confirmed potassium gluconate 595 mg (99 mg) 595 mg PO TID@08,15,03/12/20 08/14/25 tablet dobgfgc-ledoxynsfrvak-ugnyljjo 250 1 tab PO Q6H PRN Pain 09/14/24 10/11/25 mg-250 mg-65 mg tablet (Excedrin Extra Strength) irbesartan 75 mg tablet 75 mg PO DAILY 07/06/25 08/14/25 omeprazole 20 mg capsule,delayed 20 mg PO DAILY 07/06/25 08/14/25 release Previous Rx's ?Medication ?Instructions ?Recorded carvedilol 6.25 mg tablet (Coreg) 6.25 mg PO Q12H #180 tabs 12/19/24 fenofibrate micronized 134 mg 134 mg PO DAILY@15 #90 caps 12/19/24 capsule gabapentin 800 mg tablet 800 mg PO TID #360 tabs 12/19/24 levothyroxine 50 mcg tablet 50 mcg PO DAILY@1500 #90 tabs 12/19/24 linaclotide 145 mcg capsule 145 mcg PO BEDTIME #90 caps 12/19/24 (Linzess) paroxetine HCl 30 mg tablet 30 mg PO DAILY #90 tabs 12/19/24 syringe with needle 3 mL 25 gauge #5 ea 12/19/24 x 1 (BD Luer-Rae Syringe) terconazole 0.4 % vaginal cream 1 appful vaginal .at bedtime #45 08/30/25 grams baclofen 10 mg tablet See Rx Instructions .Route 09/18/25 .COMPLEX #360 tabs glycopyrrolate 1 mg tablet 1 mg PO TID #90 tabs 09/19/25 (Robinul) Allergies Allergy/AdvReac Type Severity Reaction Status Date / Time atorvastatin (From Lipitor) Allergy Unknown known Verified 08/14/25 17:37 ezetimibe (From Zetia) Allergy Unknown unknown Verified 08/14/25 17:37 rosuvastatin (From Crestor) Allergy Unknown unknown Verified 08/14/25 17:37 Tllgigc-WCR-LrP Reductase Allergy Unknown Unknown Verified 08/14/25 17:37 Inhibitor (Vsnthiu-Xqr-Ppy Reductase Inhibitor) Sulfa (Sulfonamide Allergy Unknown Unknown Verified 08/14/25 17:37 Antibiotics) sumatriptan (From Imitrex) Allergy Unknown known Verified 08/14/25 17:37 IV contrast dye Allergy ALGY-Anaphy Uncoded 08/14/25 17:37 laxis Review of Systems Const: Denies: fever(s) or chills Card: Denies: chest pain Resp: Denies: dyspnea GI: Denies: abdominal pain : Denies: dysuria, urinary frequency or urinary urgency Musc: Denies: neck pain or back pain Skin/Breast: Denies: rash PFSH ED PFSH: Medical History Pneumonia COPD (chronic obstructive pulmonary disease) Dehydration Hyperkalemia Acute kidney injury superimposed on CKD Altered mental status Anxiety, generalized CHF (congestive heart failure), NYHA class III Constipation, slow transit 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 CAD (coronary artery disease) Vitamin B12 deficiency Essential (primary) hypertension Gastric reflux Fibromyalgia muscle pain Osteopenia of multiple sites Chronic bilateral low back pain with bilateral sciatica Vitamin D deficiency Mixed hyperlipidemia Adult onset hypothyroidism Hypotension, unspecified Neuropathic pain of both legs Surgical History History of back surgery History of cholecystectomy History of tonsillectomy History of hysterectomy Family History Other Arthritis Coronary artery disease involving lummi coronary artery of lummi heart with unstable angina pectoris Diabetes Hypertension Thyroid disease Social History Smoking and tobacco/nicotine status: never used tobacco/nicotine Second hand smoke exposure: Yes Alcohol intake: never Substance/Drug Use: unknown Adopted: No Caregiver/support person: Yes Lives independently: No Household members: family Housing: House Marital status: service: No Current occupational status: disabled Do you think of yourself as: Straight/Heterosexual Current gender identity: Female Physical Exam Const: COMMON NORMALS: no acute distress GENERAL APPEARANCE: cooperative and comfortable ORIENTATION/CONSCIOUSNESS: Yes awake, Yes oriented to person, Yes oriented to place and Yes oriented to time HENMT: COMMON NORMALS: normocephalic, atraumatic and hearing grossly normal bilaterally HEAD & SCALP: normocephalic and atraumatic Resp: COMMON NORMALS: normal respiratory effort, No retractions, No use of accessory muscles and clear to auscultation bilaterally AUSCULTATION: clear to auscultation bilaterally Cardio: COMMON NORMALS: regular rate, regular rhythm and No murmurs present (Cardio) RATE: regular rate RHYTHM: regular rhythm GI: COMMON NORMALS: Soft to palpation and No hepatosplenomegaly present AUSCULTATION: Yes normoactive bowel sounds PALPATION: Yes Soft to palpation, No Tenderness to palpation present (GI), No Guarding due to palpation present (GI) and Yes No hepatosplenomegaly present Extremity: COMMON NORMALS: normal to inspection, capillary refill normal, no clubbing, cyanosis or edema, no calf tenderness and no pedal edema Neuro: SENSORIUM/ORIENTATION: Yes oriented to person, Yes oriented to place and Yes oriented to time Skin: COMMON NORMALS: no rashes or lesions noted GENERAL SKIN EXAM: no rashes or lesions noted Course Vital Signs: Vital signs: Vital Signs Temperature 98.7 F 10/11/25 12:37 Pulse Rate 85 10/11/25 15:52 Respiratory Rate 13 10/11/25 14:20 Blood Pressure 185/97 10/11/25 15:52 Pulse Oximetry 93 10/11/25 15:52 Oxygen Delivery Me thod Room Air 10/11/25 12:37 MDM - Weakness Medical Decision Making Medical decision making Social determinants: Significant difficulty with managing her own ADLs requires assistance from family was previously in a fci recently removed because she wanted to be able to smoke I reviewed the patient's medical record. Previous history of anoxic brain injury and CVA question of seizures at this high of possible brainstem stroke in June of this year I reviewed the patient's current home meds. On baclofen 3 times daily and gabapentin 800 3 times daily has missed several doses Alternate historians: Sisters at the bedside Differential diagnosis: Subacute CVA encephalopathy withdrawal from medications (gabapentin baclofen) sepsis seizure Lab Review: Labs reviewed no significant abnormality blood gas was well compensated CBC was normal BMP was unremarkable with normal chemistries normal renal function lactic acid of 1.4. Liver functions were normal troponins did not show significant positive delta and UA did not show signs of infection. Toxicology urine drug screen positive for marijuana negative for alcohol salicylates and acetaminophen Imaging: CT of the abdomen showed prominent bladder distention despite Zimmerman being present through nursing this was conveyed to the floor by the time the radiologist did read this patient had bed transferred to the floor Assessment of risk Level of risk: Moderate to high Hospitalization considerations: Hospitalized for acute encephalopathy multiple potential causes Reexamination: Unchanged Assessment and plan: Patient shows relatively recent change in mental Tatian. She is outside any treatment window for acute CVA if it is an underlying acute CVA CT head did not show anything. He is more than 24 hours out. Could also be related to her gabapentin or baclofen. There is no sign of infection at this time. CT of the abdomen is unremarkable. Will admit discussed with hospitalist orders written for observation. Consult neurology because of her history of previous anoxic brain injury and CVA. Lab Data 10/11/25 12:50 10/11/25 12:50 Radiology Impressions Chest X-Ray 10/11/25 12:39 Impression: Atherosclerosis. Head CT 10/11/25 13:44 IMPRESSION: 1. No evidence of intracranial hemorrhage or mass effect. 2. LEFT maxillary sinusitis. 3. No acute intracranial findings. Abdomen/Pelvis CT 10/11/25 15:01 IMPRESSION: 1. No acute findings. 2. Prominently distended bladder despite the presence of a Zimmerman catheter. If the catheter was clamped prior to the CT scan this is to be expected. If not, the catheter may be clogged. Laboratory Results WBC 6.07 10^3/uL (3.29-11.43) 10/11/25 12:50 RBC 5.05 10^6/uL (3.85-5.65) 10/11/25 12:50 Hgb 15.90 g/dL (11.27-16.99) 10/11/25 12:50 Hct 48.9 % (36-47) H 10/11/25 12:50 MCV 96.8 fl (85-98) 10/11/25 12:50 MCH 31.5 pg (27-33) 10/11/25 12:50 MCHC 32.5 g/dL (30-55) 10/11/25 12:50 RDW 13.6 % (12.1-15.1) 10/11/25 12:50 Plt Count 193 10^3/cmm (157-399) 10/11/25 12:50 MPV 10.6 fL (7.4-10.4) H 10/11/25 12:50 Neut % (Auto) 75.6 % 10/11/25 12:50 Lymph % (Auto) 11.7 % 10/11/25 12:50 Stafford % (Auto) 11.2 % 10/11/25 12:50 Eos % (Auto) 0.0 % 10/11/25 12:50 Baso % (Auto) 0.3 % 10/11/25 12:50 Neut # (Auto) 4.59 10^3/uL (1.8-7.7) 10/11/25 12:50 Lymph # (Auto) 0.7 10^3/uL (0.8-4.8) L 10/11/25 12:50 Stafford # (Auto) 0.7 10^3/uL (0.2-0.9) 10/11/25 12:50 Eos # (Auto) 0.0 10^3/uL (0.0-0.8) 10/11/25 12:50 Baso # (Auto) 0.0 10^3/uL (0.0-0.1) 10/11/25 12:50 Nucleated RBC % (auto) 0 % 10/11/25 12:50 Nucleated RBCs # 0.0 /100WBC 10/11/25 12:50 Specimen Type Arterial 10/11/25 15:26 Sample Site Radial, left 10/11/25 15:26 ABG pH 7.48 (7.35-7.45) H 10/11/25 15: ABG pCO2 34.5 mmHg (35-45) L 10/11/25 15: ABG pO2 59.0 mmHg (80.0-100.0) L 10/11/25 15: ABG PO2/FiO2 Ratio 280 10/11/25 15: ABG HCO3 25.5 mmol/L (22-26) 10/11/25 15: ABG O2 Saturation 90.9 10/11/25 15: ABG Base Excess 2.3 mmol/L (-2.0-2.0) H 10/11/25 15: Yuriy Test Pos 10/11/25 15: A-a O2 Gradient 6.1 mmHg (5-10) 10/11/25 15: Hematocrit 46.1 % (37-47) 10/11/25 15: Hgb O2 Saturation 89.9 % (95-100) L 10/11/25 15: Carboxyhemoglobin 0.9 %THgb (0.4-20.1) 10/11/25 15: Methemoglobin 0.2 % (0.4-1.5) L 10/11/25 15: Total Hemoglobin 15.1 g/dL (12-16) 10/11/25 15: Sodium 138.0 mmol/L (131-143) 10/11/25 15: Potassium 3.7 mmol/L (3.5-5.0) 10/11/25 15: Glucose 91.0 mg/dL (70-115) 10/11/25 15: Ionized Calcium 1.2 mmol/L (1.1-1.4) 10/11/25 15:26 O2 Delivery Device Room air 10/11/25 15: FiO2 21.0 % 10/11/25 15:26 Furniture Mover Helper ID Walci 10/11/25 15:26 Sodium 137 mmol/L (136-145) 10/11/25 12:50 Potassium 3.9 mmol/L (3.5-5.1) 10/11/25 12:50 Chloride 98 mmol/L (98-107) 10/11/25 12:50 Carbon Dioxide 25 mmol/L (22-29) 10/11/25 12:50 Anion Gap 17.9 (5-19) 10/11/25 12:50 BUN 22 mg/dL (8-23) 10/11/25 12:50 Creatinine 0.8 mg/dL (0.5-0.9) 10/11/25 12:50 GFR Calculation 72.2 mL/min (90-130) L 10/11/25 12:50 Glucose 101 mg/dL (65-115) 10/11/25 12:50 Calculated Osmolality 287 mOsm/kg (285-295) 10/11/25 12:50 Lactic Acid 1.4 mmol/L (0.5-2.2) 10/11/25 12:50 Calcium 9.0 mg/dL (8.5-10.5) 10/11/25 12:50 Total Bilirubin 0.5 mg/dL (0.15-1.2) 10/11/25 12:50 AST 29 U/L (0-32) 10/11/25 12:50 ALT 15 U/L (0-33) 10/11/25 12:50 Alkaline Phosphatase 53 U/L (35-105) 10/11/25 12:50 Ammonia 12 umol/L (11-51) 10/11/25 15:13 Troponin T Baseline 42 ng/L (0-10) H 10/11/25 12:50 Troponin T 60 Minute 44.02 ng/L (0-10) H 10/11/25 14:02 Delta Troponin T 2.02 ABS# (0-10) 10/11/25 14:02 Total Protein 6.6 g/dL (6.6-8.7) 10/11/25 12:50 Albumin 4.0 g/dL (3.5-5.2) 10/11/25 12:50 Globulin 2.6 g/dL (1.3-4.6) 10/11/25 12:50 Lipase 27 U/L (13-60) 10/11/25 12:50 Urine Color Yellow (Yellow) 10/11/25 13:10 Urine Appearance Clear (CLEAR) 10/11/25 13:10 Urine pH 7.5 (5-7) 10/11/25 13:10 Ur Specific Ava 1.015 (1.005-1.030) 10/11/25 13:10 Urine Protein 1+ (Negative) A 10/11/25 13:10 Urine Glucose (UA) Negative (Normal) 10/11/25 13:10 Urine Ketones Negative (Negative) 10/11/25 13:10 Urine Blood Negative (Negative) 10/11/25 13:10 Urine Nitrate Negative (Negative) 10/11/25 13:10 Urine Bilirubin Negative (Negative) 10/11/25 13:10 Urine Urobilinogen 0.2 mg/dL (Negative) 10/11/25 13:10 Ur Leukocyte Esterase Negative (Negative) 10/11/25 13:10 Urine RBC 3-5 /hpf (0-2) 10/11/25 13:10 Urine WBC 0-5 /hpf (0-5) 10/11/25 13:10 Ur Squamous Epith Cells 0-5 /hpf (0-5) 10/11/25 13:10 Calcium Oxalate Crystal 0-4 /hpf H 10/11/25 13:10 Amorphous Sediment Not Reportable 10/11/25 13:10 Urine Bacteria None seen /hpf (NONE) 10/11/25 13:10 Hyaline Casts 2.05 /lpf 10/11/25 13:10 Salicylates < 0.3 mg/dL (3-10) L 10/11/25 14:02 Urine Opiates Screen Negative ng/mL (Negative) 10/11/25 13:10 Acetaminophen < 5.0 ug/mL (10-30) L 10/11/25 14:02 Ur Barbiturates Screen Negative ng/mL (Negative) 10/11/25 13:10 Ur Phencyclidine Scrn Negative ng/mL (Negative) 10/11/25 13:10 Ur Amphetamines Screen Negative ng/mL (Negative) 10/11/25 13:10 U Benzodiazepines Scrn Negative ng/mL (Negative) 10/11/25 13:10 Urine Cocaine Screen Negative ng/mL (Negative) 10/11/25 13:10 U Marijuana (THC) Screen Positive ng/mL (Negative) H 10/11/25 13:10 Ethyl Alcohol < 10 mg/dL (0-10) 10/11/25 14:02 All radiology interpretation(s) finalized by discharge EKG Data EKG 1: I personally reviewed and interpreted this EKG as follows: Interpretation: EKG 10/11/2025 1302 p.m. sinus rhythm rate of 72 [place] interval 124 QTc [address] changes noted. Compared to EKG 08/12/2025 no significant change EKG 2: I personally reviewed and interpreted this EKG as follows: Interpretation: EKG 10/11/2025 1444 sinus rhythm rate of 72 [place] interval 151 QTc [address] changes noted. Compared to EKG 08/12/2025 no significant change, compared to EKG done earlier today no changes Discharge Plan Discharge Patient Disposition: Placed in Observation Admit Provider: Sea Foley Clinical Impression: Encephalopathy, Marijuana use, Mobility impaired, History of anoxic brain injury, History of CVA (cerebrovascular accident) Coding Level of Care Code ED Pillar Worker for Antonia Medina
[2025-10-11 13:05] LABS: Hematocrit 48.9 % (36-47); Hemoglobin 15.90 g/dL (11.27-16.99); Mean Corpuscular HGB Conc 32.5 g/dL (30-55); Mean Corpuscular Hemoglobin 31.5 pg (27-33); Mean Corpuscular Volume 96.8 fl (85-98); Nucleated Red Blood Cells % 0 %; Platelet Count 193 10^3/cmm (157-399); Red Blood Count 5.05 10^6/uL (3.85-5.65); White Blood Count 6.07 10^3/uL (3.29-11.43)
[2025-10-11 13:22] LABS: Glucose Urine UA Negative (Normal); Nitrate Urine Negative (Negative); Specific Gravity, Urine 1.015 (1.005-1.030)
[2025-10-11 13:26] LABS: Alanine Aminotransferase 15 U/L (0-33); Albumin Level 4.0 g/dL (3.5-5.2); Alkaline Phosphatase 53 U/L (35-105); Anion Gap 17.9 (5-19); Aspartate Amino Transferase 29 U/L (0-32); Blood Urea Nitrogen 22 mg/dL (8-23); Calcium 9.0 mg/dL (8.5-10.5); Carbon Dioxide 25 mmol/L (22-29); Chloride 98 mmol/L (98-107); Globulin 2.6 g/dL (1.3-4.6); Glucose 101 mg/dL (65-115); Lipase 27 U/L (13-60); Osmolality Calculated 287 mOsm/kg (285-295); Potassium 3.9 mmol/L (3.5-5.1); Sodium 137 mmol/L (136-145); Total Protein 6.6 g/dL (6.6-8.7)
[2025-10-11 13:27] LABS: Add Urine Microscopic? YES; Universal Test for UA Present (0)
--- OUTSIDE RECORDS SUMMARY | 2025-10-11 13:36 | XMS_ITS | Encounter Summary ---
Author Organization [facility] Address [address] [place] [address] Care Team Providers Care Powerhouse Operator Name Role Phone Non-Staff, Physician Primary Care Provider Unava ilable Encounter Details Date Type Department Care Team (Late st Contact Info) Description 05/03/2002 Outpatient [facility] [address] [place] [phone] Martell Baugh MD NO ADDRESS ON FILE MYALGIA AND MYOSITIS NOS (Primary Dx) Social History Tobacco Use Types Packs/Day Years Used Date Smoking Tobacco: Never Assessed Comments Unknown Sex and Gender Information Value Date Recorded Sex Assigned at Not on file 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
--- OUTSIDE RECORDS SUMMARY | 2025-10-11 13:36 | XMS_ITS | Encounter Summary ---
Author Organization [facility] Address [address] [facility] Attn: Epic Prelude ADT [place] [address] Care Team Providers Care Bending Press Operator Name Role Phone Non-Staff, Physician Primary [...] on file Legal Sex Female 7:06 AM DBAS Gender Identity Not on file Sexual Orientation Not on file documented as of this encounter Plan of Treatment Not on file documented as of this encounter Visit Diagnoses Not on filedocumented in this encounter Care Teams Bending Press Operator Relationship Specialty Start Date End Date Non-Staff, Physician NO ADDRESS ON FILE PCP - General 04/15/12 documented as of this encounter
--- OUTSIDE RECORDS SUMMARY | 2025-10-11 13:36 | XMS_ITS | Encounter Summary ---
Author Organization [facility] Address [address] 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
--- OUTSIDE RECORDS SUMMARY | 2025-10-11 13:36 | XMS_ITS | Encounter Summary ---
Author Organization [facility] Address [address] [place] [address] Care Team Providers Care Gleason Gear Generator Name Role Phone Non-Staff, Physician Primary Care Provider Unava ilable Encounter Details Date Type Department Care Team (Late st Contact Info) Description 02/22/2002 Outpatient Historical [facility] [address] [place] [phone] Martell Baugh MD NO ADDRESS ON FILE CERVICALGIA (Primary Dx) Social History Tobacco Use Types Packs/Day Years Used Date Smoking Tobacco: Never Assessed Comments Unknown Sex and Gender Information Value Date Recorded Sex Assigned at Not on file 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
--- OUTSIDE RECORDS SUMMARY | 2025-10-11 13:36 | XMS_ITS | Encounter Summary ---
Author Organization [facility] Address [address] [facility] Attn: Epic Prelude ADT [place] [address] Care Team Providers Care Family Educator Name Role Phone Non-Staff, Physician Primary [...] on file Legal Sex Female 7:06 AM LCPC Gender Identity Not on file Sexual Orientation Not on file documented as of this encounter Plan of Treatment Not on file documented as of this encounter Visit Diagnoses Not on filedocumented in this encounter Care Teams Family Educator Relationship Specialty Start Date End Date Non-Staff, Physician NO ADDRESS ON FILE PCP - General 04/15/12 documented as of this encounter
--- OUTSIDE RECORDS SUMMARY | 2025-10-11 13:36 | XMS_ITS | Clinical Summary ---
Author Organization [facility] Address [address] [place] [place] [address] Phone Care Team Providers Care Aerospace Physiological Technician Name Role Phone Non-Staff, Physician Primary [...] tablet Take 25 mcg by mouth daily assembler motor vehicle. 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 Gender Identity Not on file Sexual Orientation Not on file Occupation Industry Job Start Date Job End Date Not on file Not on file Not on file Not on file Last Filed Vital Signs Vital Sign Reading Time Taken Comments Blood Pressure 140/82 11/17/2012 8:44 AM EQUAL EMPLOYMENT OPPORTUNITY OFFICER Pulse 74 11/17/2012 8:44 AM EQUAL EMPLOYMENT OPPORTUNITY OFFICER Temperature - - Respiratory Rate - - Oxygen Saturation - - Inhaled Oxygen Concentration - - Weight 66.2 kg (146 lb) 11/17/2012 8:44 AM EQUAL EMPLOYMENT OPPORTUNITY OFFICER Height 162.6 cm (5' 4 ) 11/17/2012 8:44 AM EQUAL EMPLOYMENT OPPORTUNITY OFFICER Body Mass Index 25.06 11/17/2012 8:44 AM EQUAL EMPLOYMENT OPPORTUNITY OFFICER Plan of Treatment Health Maintenance Due Date [...] [address]36 [address] [place] [id number] MEDICARE PART A AND B [place] Care Teams Aerospace Physiological Technician Relationship Specialty Start Date End Date Non-Staff, Physician NO ADDRESS ON FILE PCP - General 04/15/12
--- OUTSIDE RECORDS SUMMARY | 2025-10-11 13:36 | XMS_ITS | Encounter Summary ---
Author Organization [facility] Address [address] [place] [address] Care Team Providers Care Adjunct Professor Of 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 Relationship Specialty Start Date End Date Non-Staff, Physician NO ADDRESS ON FILE PCP - General 04/15/12 documented as of this encounter
--- OUTSIDE RECORDS SUMMARY | 2025-10-11 13:36 | XMS_ITS | Encounter Summary ---
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
--- OUTSIDE RECORDS SUMMARY | 2025-10-11 13:36 | XMS_ITS | Encounter Summary ---
Author Organization [facility] Address [address] [place] [address] Care Team Providers Care Comptroller Name Role Phone Non-Staff, Physician Primary Care Provider Unava ilable Encounter Details Date Type Department Care Team (Latest Contact Info) Description 11/19/2001 Outpatient Historical [facility] Luis Felipe Sanford MD [address] [place] [address] CERVICALGIA (Primary Dx); EDEMA Social History Tobacco Use Types Packs/Day Years Used Date Smoking Tobacco: Never Assessed Comments Unknown Sex and Gender Information Value Date Recorded Sex Assigned at Not on file 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
--- OUTSIDE RECORDS SUMMARY | 2025-10-11 13:36 | XMS_ITS | Encounter Summary ---
Author Organization [facility] Address [address] [place] [address] Care Team Providers Care Net Web Application Developer Name Role Phone Non-Staff, Physician Primary Care Provider Unava ilable Encounter Details Date Type Department Care Team (Latest Contact Info) Description 03/18/2002 Outpatient Historical [facility] [address] [place] [phone] Juancarlos Maier MD NO ADDRESS ON FILE CERVICALGIA (Primary Dx) Social History Tobacco Use Types Packs/Day Years Used Date Smoking Tobacco: Never Assessed Comments Unknown Sex and Gender Information Value Date Recorded Sex Assigned at Not on file Legal Sex Female 7:06 AM DIRECTOR OF WOMEN'S SERVICES Gender Identity Not on file Sexual Orientation Not on file documented as of this encounter Plan of Treatment Not on file documented as of this encounter Visit Diagnoses Diagnosis Cervicalgia- Primary documented in this encounter Care Teams Net Web Application Developer Relationship Specialty Start Date End Date Non-Staff, Physician NO ADDRESS ON FILE PCP - General 04/15/12 documented as of this encounter
--- OUTSIDE RECORDS SUMMARY | 2025-10-11 13:36 | XMS_ITS | Encounter Summary ---
Author Organization [facility] Address [address] [place] [address] Care Team Providers Care Container Shop Welder Name Role Phone Non-Staff, Physician Primary Care Provider Unava ilable Encounter Details Date Type Department Care Team (Latest Contact Info) Description 08/12/2001 Outpatient Historical [facility] Cody Lofton MD [address] [place] [address] Headache(784.0) (Primary Dx); Cervicalgia Social History Tobacco Use Types Packs/Day Years Used Date Smoking Tobacco: Never Assessed Comments Unknown Sex and Gender Information Value Date Recorded Sex Assigned at Not on file Legal Sex Female 7:06 AM POURER Gender Identity Not on file Sexual Orientation Not on file documented as of this encounter Plan of Treatment Not on file documented as of this encounter Visit Diagnoses Diagnosis Headache(784.0)- Primary Headache Cervicalgia documented in this encounter Care Teams Container Shop Welder Relationship Specialty Start Date End Date Non-Staff, Physician NO ADDRESS ON FILE PCP - General 04/15/12 documented as of this encounter
--- OUTSIDE RECORDS SUMMARY | 2025-10-11 13:36 | XMS_ITS | Encounter Summary ---
Author Organization [facility] Address [address] [facility] Attn: Epic Prelude ADT KALA HICKS [address] Care Team Providers Care Pamphlet Distributor Name Role Phone Non-Staff, Physician Primary Care [...] on file Legal Sex Female 7:06 AM PASSPORT APPLICATION EXAMINER Gender Identity Not on file Sexual Orientation Not on file documented as of this encounter Plan of Treatment Not on file documented as of this encounter Visit Diagnoses Not on filedocumented in this encounter Care Teams Pamphlet Distributor Relationship Specialty Start Date End Date Non-Staff, Physician NO ADDRESS ON FILE PCP - General 04/15/12 documented as of this encounter
--- OUTSIDE RECORDS SUMMARY | 2025-10-11 13:37 | XMS_ITS | Encounter Summary ---
Author Organization [facility] Address [address] [place] [address] Care Team Providers Care Urology Teacher Name Role Phone Non-Staff, Physician Primary Care Provider Unava ilable Encounter Details Date Type Department Care Team (Late st Contact Info) Description 06/13/2002 Outpatient Historical [facility] [address] [place] [address] Martell Baugh MD NO ADDRESS ON FILE MYALGIA AND MYOSITIS NOS (Primary Dx) Social History Tobacco Use Types Packs/Day Years Used Date Smoking Tobacco: Never Assessed Comments Unknown Sex and Gender Information Value Date Recorded Sex Assigned at Not on file Legal Sex Female 7:06 AM SENIOR MARKETING ANALYST Gender Identity Not on file Sexual Orientation Not on file documented as of this encounter Plan of Treatment Not on file documented as of this encounter Visit Diagnoses Diagnosis Myalgia and myositis, unspecified- Primary Mylagia and myositis, unspecified documented in this encounter Care Teams Urology Teacher Relationship Specialty Start Date End Date Non-Staff, Physician NO ADDRESS ON FILE PCP - General 04/15/12 documented as of this encounter
--- OUTSIDE RECORDS SUMMARY | 2025-10-11 13:37 | XMS_ITS | Patient Health Record ---
Author Organization [facility] Address [address] [place] [address] Care Team Providers Care Changeover Operator Name Role Phone Hitesh Pal APRN Primary Care Provider Mary Alice Love Unavailable [phone] Yonathan Lemos Unavailable [phone] Hanna Chaves Unavailable [phone] Gastroenterology, [facility] Unavailable [phone] Waylon Ba Unavailable [phone] Madyson Reyes Unavailable Zhanna Uriostegui Unavailable [phone] Allergies Allergen (clinical drug ingredient) Drug/Non Drug Allergy documented on EMR Reaction Allergy Type Onset Date Status ezetimibe ezetimibe , Drug Allergy Active sumatriptan Sumatriptan , Drug Allergy Act josey atorvastatin atorvastatin , Drug Allergy A ctive rosuvastatin rosuvastatin , Drug Allergy A ctive Results Component Value Reference Range Notes UA Without [place], [place] - [address] Reviewed date:08/28/2025 04:22:42 PM Interpretation: Performing Lab: Notes/Report: Color yellow Clarity cloudy Glucose - Bili - Ketones - Sp Brandon 1.015 Blood - pH 6.0 Protein - Urobili - Nitrites - Leukocytes - Reason For Referral Reason Please eval and jessica t urinary retention Diagnosis 1 Urinary retention (R 33.9) Diagnosis 2 Hydronephrosis (N13. 30) Referral Organization [facility] Referring Provider First Name Mary Alice Referring Provider Last Name Donal Referring Provider Speciality Nurse Prac titioner Referred Provider Specialty Urology Referral Priority Routine Reason urinary retention, h ydronephrosis Diagnosis 1 Urinary retention (R 33.9) Diagnosis 2 Hydronephrosis, unsp ecified hydronephrosis type (N13.30) Referred Organization [facility] Referred Provider Waylon Ba Referred Address [address],[place],[address], Referred Provider Specialty Urology Referral Priority Routine Medications Medication SIG (Take, Route, Frequency, Duration) Notes Start Date End Date Status Meclizine HCl 25 MG Tablet Chewable 1 tablet as needed Orally every 12 hrs Active Fluconazole 100 MG Oral Tablet Fluconazole 100 MG Oral Tablet 06/02/2019 Not-Taking Linzess 145 MCG Capsule 1 capsule at least 30 minutes before the first meal of the day on an empty stomach Orally Once a day Active Levothyroxine Sodium 0.025 MG Oral Tablet Levothyroxine Sodium 0.025 MG Oral Tablet 06/02/2019 Active Diphenhydramine Hydrochloride 25 MG Oral Capsule Diphenhydramine Hydrochloride 25 MG Oral Capsule 06/02/2019 Not-Taking Irbesartan 75 MG Tablet 2 tablets Orally Once a day Active Aspirin 81 MG Enteric Coated Tablet Aspirin 81 MG Enteric Coated Tablet 06/02/2019 Not-Taking Reglan 10 MG Tablet 1 tablet before meals Orally once; Duration: 1 days 06/22/2025 Not-Taking Furosemide 20 MG Oral Tablet Furosemide 20 MG Oral Tablet 06/02/2019 Not-Taking Potassium 99 MG Tablet 1 tablet Orally Once a day Active Fluticasone propionate 0.05 MG/ACTUAT Metered Dose Nasal [place] Fluticasone propionate 0.05 MG/ACTUAT Metered Dose Nasal [place] 06/02/2019 Not-Taking Paroxetine Hydrochloride 20 MG Oral Tablet Paroxetine Hydrochloride 20 MG Oral Tablet 06/02/2019 Active Omeprazole 20 MG Tablet Delayed Release 1 tablet 30 minutes before morning meal Orally Once a day; Duration: 30 days 06/14/2025 Not-Taking Vitamin B 12 1 MG/ML Injectable Solution Vitamin B 12 1 MG/ML Injectable Solution 06/02/2019 Active Spironolactone 25 MG Oral Tablet Spironolactone 25 MG Oral Tablet 06/02/2019 Not-Taking Robinul 1 ml Not-Taking Ondansetron 4 MG Oral Tablet Ondansetron 4 MG Oral Tablet 08/10/2019 Not-Taking MAGNESIUM GLUCONATE 250 MG Oral Tablet MAGNESIUM GLUCONATE 250 MG Oral Tablet 06/02/2019 Not-Taking irbesartan 150 MG Oral Tablet irbesartan 150 MG Oral Tablet 06/02/2019 Not-Taking gabapentin 600 MG Oral Tablet gabapentin 600 MG Oral Tablet 06/02/2019 Active Fenofibrate 134 MG Oral Capsule Fenofibrate 134 MG Oral Capsule 06/02/2019 Active Excedrin Extra Strength 250-250-65 MG Tablet 2 tablets Orally Once a day Active Acetaminophen 325 MG / Hydrocodone Bitartrate 10 MG Oral Tablet Acetaminophen 325 MG / Hydrocodone Bitartrate 10 MG Oral Tablet 06/02/2019 Not-Taking carvedilol 3.13 MG Oral Tablet carvedilol 3.13 MG Oral Tablet 06/02/2019 Active Baclofen 10 MG Oral Tablet Baclofen 10 MG Oral Tablet 06/02/2019 Active 72 HR Fentanyl 0.075 MG/HR Transdermal Patch 72 HR Fentanyl 0.075 MG/HR Transdermal Patch 06/02/2019 Not-Taking Vitamin D2 10 MCG (400 UNIT) Tablet 2 tablets Orally Once a day Active Immunizations Vaccine Route Administration Date Status Comme nts Influenza (whole), CPT 94410 Inactive Unknown 06/24/2019 Administered Social History Tobacco Use: Social History Observation Description Date Details (start date - stop date) Current Smoker NA - NA Social History Drugs/Alcohol: Social Info Question Answer Notes Caffeine Intake: 1-2 cups per day 1/2 cup Tobacco Use: Social Info Question Answer Notes Tobacco Control (Standard) Tobacco use: Current smoker Problems Problem Type SNOMED Code ICD Code Onset Dates Problem Status W/U Status Risk Notes Problem Essential hypertension (38595919) Essential hypertension (I10) Active confirmed Problem Gastroesophageal reflux disease (disorder) (685245767) Chronic GERD (K21.9) Active confirmed Problem Vitamin D deficiency (57693226) Vitamin D deficiency (E55.9) Active confirmed Problem Dysphagia (53917123) Dysphagia (R13.10) Active confirmed Problem Obstructive uropathy (7231192) Obstructive uropathy (N13.9) Active confirmed Vital Signs Heart Rate 62 /min 08/23/2025 Temperature 96.7 degrees Fahrenheit 08/23/2025 Height-cm 172.72 cm 08/23/2025 Oximetry 98 % 08/23/2025 Blood pressure diastolic 86 mm Hg 08/23/2025 Weight-kg 50.3 kg 08/23/2025 Height 68 in 08/23/2025 Blood pressure systolic 158 mm Hg 08/23/2025 Weight 110.89 lbs 08/23/2025 BMI 16.86 kg/m2 08/23/2025 Encounters Encounter Location Date Provider Diagnosis [facility] [address] [place] [address] 08/23/2025 Mary Alice Mansfield JUAN MIGUEL (acute kidney injury) N17.9 ; Essential hypertension I10 ; Obstructive uropathy N13.9 and Vitamin D deficiency E55.9 [facility] [address] [place] [address] 06/14/2025 Zhanna Uriostegui GERD (gastroesophageal reflux disease) K21.9 ; Heartburn R12 ; Dysphagia R13.10 ; Epigastric pain R10.13 ; Chronic constipation K59.09 ; Unintentional weight loss R63.4 and Screening for colon cancer Z12.11 [facility] [address] [place] [address] [address] [place] [address] 08/23/2025 Mary Alice [place] [facility] [address] [place] [address] 08/16/2025 Yonathan Lemos [facility] [address] [place] [address] 07/03/2025 Hanna Chaves [facility] [address] [place] [address] 06/28/2025 Zhanna Uriostegui Chronic GERD K21.9 [facility] [address] [place] [address] 06/16/2025 Zhanna Uriostegui [facility] [address] [place] [address] 05/25/2025 [facility] [address] [place] [address] [address] [place] [address] 09/26/2025 Mary Alice [place]field [facility] [address] [place] [address] 09/25/2025 Waylon Ba Assessments Encounter Date Diagnosis (ICD Code) Assessment Notes Treatment Notes Treatment Clinical Notes Section Notes 06/14/2025 Heartburn (ICD-10 - R12) 06/14/2025 GERD (gastroesophagea l reflux disease) (ICD-10 - K21.9) Start omeprazole 20mg daily.Recommend strict reflux precautions.Patient education handout provided. 06/28/2025 Chronic GERD (ICD-10 - K21.9) Chronic <vs Acute>. Associated with <uncontrolled reflux, unitentional weightloss> Current reflux treatment: Risk factors: <Absence of PPI therapy, Chronic reflux, history of esophageal strictures, history of eosinophilic esophagitis, history of esophagitis, history of Hurtado's esophagus, CVA, sex, age, tobacco dependence> Differentials: <uncontrolled reflux, Esophageal stricture, esophagitis, esophageal dysmotility, esophageal spasm, oropharyngeal dysphagia> Prior diagnostics: <CT, esophagram> Previous endoscopy records reviewed and noted. Last EGD: Recommend EGD for further evaluation with endoscopic intervention as indicated. EGD procedure, risks, benefits, potential complications, and potential interventions discussed. Questions answered to apparent satisfaction. Verbalizes understanding. Desires to proceed with the proposed plan. Schedule EGD Advised to avoid any OTC supplements, NSAIDs, and aspirin 3 days prior to endoscopy. Follow-up to be arranged based on endoscopy findings and interventions Recommend strict reflux precautions Continue PPI as prescribed. 08/23/2025 Essential hypertension (ICD-10 - I10) Acute kidney injury likely due to obstructive uropathy. GFR from August 2024 was 101. Hypertension is uncontrolled in clinic, but controlled at home by report. Her last hemoglobin was above goal for CKD. Vitamin D deficiency is being treated. 08/23/2025 JUAN MIGUEL (acute kidney injury) (ICD-10 - N17.9) Acute Kidney Injury: Care Instructions material was printed Acute kidney injury likely due to obstructive uropathy. GFR from August 2024 was 101. Hypertension is uncontrolled in clinic, but controlled at home by report. Her last hemoglobin was above goal for CKD. Vitamin D deficiency is being treated. 06/14/2025 Dysphagia (ICD-10 - R13.10) 08/23/2025 Obstructive uropathy (ICD-10 - N13.9) Acute kidney injury likely due to obstructive uropathy. GFR from August 2024 was 101. Hypertension is uncontrolled in clinic, but controlled at home by report. Her last hemoglobin was above goal for CKD. Vitamin D deficiency is being treated. 08/23/2025 Vitamin D deficiency (ICD-10 - E55.9) Acute kidney injury likely due to obstructive uropathy. GFR from August 2024 was 101. Hypertension is uncontrolled in clinic, but controlled at home by report. Her last hemoglobin was above goal for CKD. Vitamin D deficiency is being treated. 06/14/2025 Epigastric pain (ICD-10 - R10.13) CT of the abdomen pelvis from 05/24/20[facility] from [facility]: Liver is normal with no masses. Status post cholecystectomy, similar prominence of the common bile duct, likely reservoir effect from prior cholecystectomy. Normal pancreas with no ductal dilation. Spleen is normal. Adrenal glands are normal with no mass. Stomach and bowel are unremarkable. No obstruction or mucosal thickening. No evidence of appendicitis. No free air or significant fluid collection. All other findings are not associated with GI. See CT report for further findings.Ultrasound of the abdomen from 05/24/2025 at [facility]: Liver is normal in size and echogenicity. No masses noted. Intrahepatic ducts are normal. Common bile duct diameter 0.5 cm. Pancreas is normal. Spleen is normal. There is a small right renal cyst measuring 1.1 cm with no hydronephrosis noted. 06/14/2025 Chronic constipation (ICD-10 - K59.09) 06/14/2025 Unintentional weight loss (ICD-10 - R63.4) 06/14/2025 Screening for colon cancer (ICD-10 - Z12.11) 06/14/2025 Other The patient reports she would like to have an EGD and colonoscopy performed in [place], as it is closer to home. Informed patient she could definitely follow up in [place] for those procedures if she would like. She wants our office to send over orderd for an EGD and colonosopy to be done in [place]. I explained to the patient we would not be able to do that. Explained that she could get a referral from her PCP to where ever she would like for consideration of EGD and clonoscopy. The patient leaves with intentions of having colnoscopy done elsewhere. She calls the clinic later the same day and states they will not do it in [place] and it will need to be done here. There is no colonoscopy report on file available for review. I did not discuss the insurance payment for endoscopy services schedule nor did I mention to her that her endoscopy will be have to be paid for out of pocket if it was done too early. Will contact patient and verify she would like endoscopy done here. Attempt to obtain most recent colonoscopy records. 08/23/2025 Other Refer to urolog y for obstructive uropathy/urinary retention/frequent UTIs. Continue current antihypertensives and monitor blood pressure daily with a goal of less than 130/80. Patient instructed to call clinic if blood pressure not at goal range. Recommend low-sodium diet. Follow-up with PCP for weight loss. Renal dose medications for GFR of less than 60 mL/min based on most current labs. Avoid nephrotoxins and NSAIDs. Follow-up in 4 months with labs at Jacqueline Pal's office. Acute kidney injury likely due to obstructive uropathy. GFR from August 2024 was 101. Hypertension is uncontrolled in clinic, but controlled at home by report. Her last hemoglobin was above goal for CKD. Vitamin D deficiency is being treated. Plan Of Treatment Pending Test Test Name Order Date EGD, Upper GI Diagnostic-38314 Future Test Test Name Order Date Albumin 77922 12/04/2025 Basic Metabolic Panel (BMP) 00495 2025 Hemoglobin 52799 12/04/2025 Magnesium (B) 54805 12/04/2025 Phosphorus (B) 75886 12/04/2025 Uric Acid (B) 71376 12/04/2025 Microalbumin (U) Random 64183 12/04/2025 Creatinine (U) 91400 12/04/2025 UA Reflex Micro, Reflex Cult 27104, 8101 5, 71561 12/04/2025 PTH Intact 83660 12/04/2025 Next Appt Details Provider Name:Madyson López, 10/30/2025 01:30:00 PM, [address], [place], [address], Provider Name:Mary Alice Javier pineda, 12/19/2025 01:40:00 PM, [address] [place] [address] [address], [place], [address], Insurance Providers Payer Name Payer Address Payer Phone Subscriber Number Group Number Insured Name Patient Relationship to Insured Coverage Start Date Coverage End Date [employer] Medicare Replacement [address] [address] [place] [address] [id number] Viola Eric Self - patient is the insured [place] Medicaid [address] [place] [address] [id number] [phone] [id number] Viola Eric Self - patient is the insured Medical (General) History Medical History History ICD Code Problem:Chronic back pain (disorder) , S tatus :: Active Problem:Chronic depression (disorder) , Status :: Active Problem:Fibromyalgia (disorder) , Status :: Active Problem:Hyperlipidemia (disorder) , Stat us :: Active Problem:Hypertensive disorde r, systemic arterial (disorder) , Status :: Active Problem:Hypothyroidism (disorder) , Stat us :: Active Problem:Osteoarthritis (disorder) , Stat us :: Active Problem:Tobacco dependence syndrome (dis order) , Status :: Active Chicken Pox bladder infections stroke Protein in urine High Cholesterol Sleep Apnea Stroke Seizures Surgical History Surgery Date(Month/Year) back surgy x 3 cholecystectomy hysterectomy [id number] Hospitalization History Reason Date(Month/Year) see surg
--- OUTSIDE RECORDS SUMMARY | 2025-10-11 13:37 | XMS_ITS | Encounter Summary ---
Author Organization [facility] Address [address] [place] [address] Care Team Providers Care Laboratory Animal Facility Supervisor Name Role Phone Non-Staff, Physician Primary Care Provider Unava ilable Encounter Details Date Type Department Care Team (Late st Contact Info) Description 01/27/2012 Ancillary Orders [facility] 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
--- OUTSIDE RECORDS SUMMARY | 2025-10-11 13:37 | XMS_ITS | Encounter Summary ---
Author Organization [facility] Address [address] [place] [address] Care Team Providers Care Electric Motor Rebuilder Name Role Phone Non-Staff, Physician Primary Care Provider Unava ilable Encounter Details Date Type Department Care Team (Late st Contact Info) Description 10/10/2025 External Device Data [facility] Provider, Abstract [...] on file Legal Sex Female 3:40 PM LINE HAUL OWNER OPERATOR Gender Identity Not on file Sexual Orientation Not on file documented as of this encounter Plan of Treatment Not on file documented as of this encounter Visit Diagnoses Not on filedocumented in this encounter Care Teams Electric Motor Rebuilder Relationship Specialty Start Date End Date Non-Staff, Physician NO ADDRESS ON FILE PCP - General 04/15/12 documented as of this encounter
--- OUTSIDE RECORDS SUMMARY | 2025-10-11 13:37 | XMS_ITS | Encounter Summary ---
Author Organization [facility] Address [address] [place] [address] Care Team Providers Care Slug Press Operator Name Role Phone Non-Staff, Physician Primary Care Provider Unava ilable Encounter Details Date Type Department Care Team (Latest Contact Info) Description 12/04/1998 Outpatient Historical [facility] Elias Chow Jr., MD [address] [place] [phone] Gynecologic examination (Primary Dx); Cystitis, unspecified Social History Tobacco Use Types Packs/Day Years Used Date Smoking Tobacco: Never Assessed Comments Unknown Sex and Gender Information Value Date Recorded Sex Assigned at Not on file Legal Sex Female 7:06 AM CRUMB PACKER Gender Identity Not on file Sexual Orientation Not on file documented as of this encounter Plan of Treatment Not on file documented as of this encounter Visit Diagnoses Diagnosis Gynecologic examination- Primary Gynecological examination Cystitis, unspecified documented in this encounter Care Teams Slug Press Operator Relationship Specialty Start Date End Date Non-Staff, Physician NO ADDRESS ON FILE PCP - General 04/15/12 documented as of this encounter
--- OUTSIDE RECORDS SUMMARY | 2025-10-11 13:37 | XMS_ITS | Encounter Summary ---
Author Organization [facility] Address [address] Travis: Epic Prelude ADT [place] [address] Care Team Providers Care Ophthalmic Technician Name Role Phone Non-Staff, Physician Primary Care Provider Unava ilable Encounter Details Date Type Department Care Team ([facility] st Contact Info) Description 08/19/2001 Outpatient Historical Claudine Swanson, Elias Herrera MD [address] [place] [address] Social History Tobacco Use Types Packs/Day Years Used Date Smoking Tobacco: Never Assessed Comments Unknown Sex and Gender Information Value Date Recorded Sex Assigned at Not on file Legal Sex Female 7:06 AM CODE MACHINE OPERATOR Gender Identity Not on file Sexual Orientation Not on file documented as of this encounter Plan of Treatment Not on file documented as of this encounter Visit Diagnoses Not on filedocumented in this encounter Care Teams Ophthalmic Technician Relationship Specialty Start Date End Date Non-Staff, Physician NO ADDRESS ON FILE PCP - General 04/15/12 documented as of this encounter
--- OUTSIDE RECORDS SUMMARY | 2025-10-11 13:37 | XMS_ITS | Encounter Summary ---
Author Organization [facility] Address [address] [place] [address] Care Team Providers Care Veterinary Surgeon Name Role Phone Non-Staff, Physician Primary Care Provider Unava ilable Encounter Details Date Type Department Care Team (Latest Contact Info) Description 09/13/[address] [facility] [address] [facility] [address] [place] [address] Franklin Welsh MD NO ADDRESS ON FILE SCREENING MAMM-MAILG NEOPL-OTHER (Primary Dx) Social History Tobacco Use Types Packs/Day Years Used Date Smoking Tobacco: Never Assessed Comments Unknown Sex and Gender Information Value Date Recorded Sex Assigned at Not on file Legal Sex Female 7:06 AM DIRECTOR TELECOMMUNICATIONS Gender Identity Not on file Sexual Orientation Not on file documented as of this encounter Plan of Treatment Not on file documented as of this encounter Visit Diagnoses Diagnosis Other screening mammogram- Primary documented in this encounter Care Teams Veterinary Surgeon Relationship Specialty Start Date End Date Non-Staff, Physician NO ADDRESS ON FILE PCP - General 04/15/12 documented as of this encounter
--- OUTSIDE RECORDS SUMMARY | 2025-10-11 13:37 | XMS_ITS | Clinical Summary ---
Author Organization [facility] Address [address] [place]: Epic Prelude ADT [place] [address] Care Team Providers Care Forklift Truck Mechanic Name Role Phone Non-Staff, Physician Primary Care [...] (3.125 mg) by mouth every 12 hours. 5 Active docusate sodium (COLACE) 100 mg capsule Take 1 Capsule (100 mg) by mouth 2 times daily. Active pantoprazole (PROTONIX) 40 mg Tablet, Delayed Release (E.C.) Take 1 Tablet (40 mg) by mouth daily before breakfast. Active Lidocaine 4 % Adhesive Patch, Medicated Apply to lower back. Apply only once for up to 12 hours within a 24 hour period. Patches may be cut into smaller sizes with scissors prior to the removal of the release liner. Clothing may be worn over the area of application. For more information use the [employer] link. Active Active Problems Problem Noted Date Diagnosed [...] Encounters Date Type Department Care Team Description 10/10/2025 External Device Data [facility] ABSTRACTION Provider, Abstract 09/19/2025 External Device Data [facility] ABSTRACTION Provider, Abstract 09/12/2025 External Device Data [facility]STRACTION Provider, Abstract 09/12/2025 External Device Data [facility]CTION Provider, Abstract 08/29/2025 External Device Data [facility]STRACTION Provider, Abstract 08/16/2025 External Device Data [facility]STRACTION Provider, Abstract 08/08/2025 External Device Data [facility]STRACTION Provider, Abstract 08/08/2025 External Device Data [facility]STRACTION Provider, Abstract 08/08/2025 External Device Data [facility]STRACTION Provider, Abstract 08/01/2025 External Device Data [facility]STRACTION Provider, Abstract 08/01/2025 External Device Data [facility] ABSTRACTION Provider, Abstract 07/26/2025 Orders Only [facility] [place] [address] [place] [address] Jennifer Pro FNP Thrombocytopenia (Primary Dx) 07/18/2025 Telephone [facility] Gastroenterology [facility] [address] [place] [address] Griffin San MD Other (Referral/) 07/18/2025 Abstract [facility] [address] [place] [phone] Provider, Abstract 07/18/2025 Orders Only [facility] [address] [place] [phone] Provider, Abstract 07/17/2025 Abstract [facility] [address] [place] [phone] Provider, Abstract 07/17/2025 Orders Only [facility] [address] [place] [phone] Provider, Abstract 07/13/2025 11:51 AM CDT Anesthesia Event [facility] Endoscopy [address] [place] [phone] Brice Granados II, 07/13/2025 10:00 AM CDT - 07/13/2025 10:20 AM CDT Surgery [facility] [address] [place] [phone] Griffin San MD ESOPHAGOGASTRODUODENOSCOPY 07/12/2025 External Device Data [facility]STRACTION Provider, Abstract 07/08/2025 4:39 PM CDT - 07/15/2025 12:45 PM CDT Hospital Encounter [facility] 7B Medical Surgical [address] [place] [phone] Stormy Mittal MD Saeed, Mariam, MD Shah, MD Antoine Leonard Jagdeep S, MD Acute metabolic encephalopathy Discharge Disposition: Longterm Fac(SNF) with Medicare Certification in Anticipation of [...] on file 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 WBC 4.6(L) 4.8 - 10.8 K/uL 07/15/2025 6:31 AM CDT [facility] RBC 2.74(L) 4.20 - 5.40 M/uL 07/15/2025 6:31 AM CDT [facility] HEMOGLOBIN 8.8(L) 12.0 - 16.0 g/dL 07/15/2025 6:31 AM CDT [facility] HEMATOCRIT 27.3(L) 36.0 - 46.0 % 07/15/2025 6:31 AM CDT [facility] MCV 99.6 84.0 - 103.0 fL 07/15/2025 6:31 AM CDT [facility] MCH 32.1 27.0 - 34.0 pg 07/15/2025 6:31 AM CDT [facility] MCHC 32.2 30.0 - 35.0 g/dL 07/15/2025 6:31 AM [facility] PLATELETS 154 140 - 440 K/uL 07/15/2025 6:31 AM [facility] MPV 11.5 8.9 - 12.8 fL 07/15/2025 6:31 AM [facility] RDW 17.0(H) 11.0 - 14.5 % 07/15/2025 6:31 AM [facility] [employer] [facility] RDW-STDEV 62.1(H) 37.0 - 54.0 fL 07/15/2025 6:31 AM [facility] NEUTROPHILS 57 42 - 75 % 07/15/2025 6:31 AM [facility] [employer] [facility] LYMPHOCYTES 25 24 - 44 % 07/15/2025 6:31 AM [facility] [employer] [facility] MONOCYTES 14(H) 2 - 10 % 07/15/2025 6:31 AM [facility] [employer] [facility] EOSINOPHILS 2 0 - 7 % 07/15/2025 6:31 AM [facility] BASOPHILS 1 0 - 1 % 07/15/2025 6:31 AM [facility] IMMATURE GRANULOCYTES 1 0 - 2 % 07/15/2025 6:31 AM [facility] NEUTROPHIL ABSOLUTE 2.66 2.00 - 8.00 K/uL 07/15/2025 6:31 AM [facility] LYMPHOCYTE ABSOLUTE 1.14(L) 1.20 - 4.00 K/uL 07/15/2025 6:31 AM [facility] MONOCYTE ABSOLUTE 0.64(H) 0.10 - 0.60 K/uL 07/15/2025 6:31 AM [facility] EOSINOPHIL ABSOLUTE 0.11 0.00 - 0.70 K/uL 07/15/2025 6:31 AM [facility] BASOPHILS ABSOLUTE 0.05 0.00 - 0.20 K/uL 07/15/2025 6:31 AM [facility] IMMATURE GRANULOCYTES ABSOLUTE 0.04 0.00 - 0.10 K/uL 07/15/2025 6:31 AM [facility] SMEAR REVIEWED: NA - Not Applicable 07/15/2025 6:31 AM [facility] Blood Venipuncture / Unknown 07/15/2025 5:41 AM CDT 07/15/2025 6:27 AM CDT us Nava Quiros METAPHYSICS TEACHER HEMATOLOGY ORDERABLES Milvia staton Result [facility] CLIA # [id number] [address] [place] [id number] * (ABNORMAL) COMPREHENSIVE METABOLIC PANEL (07/15/2025 5:41 AM CDT) Only the most recent of4 resultswithin the time period is included. SODIUM 137 136 - 145 mmol/L 07/15/2025 7:03 AM [facility] POTASSIUM 4.1 3.5 - 5.1 mmol/L 07/15/2025 7:03 AM [facility] CHLORIDE 102 98 - 107 mmol/L 07/15/2025 7:03 AM [facility] CO2 29 22 - 29 mmol/L 07/15/2025 7:03 AM [facility] CALCIUM 8.9 8.8 - 10.2 mg/dL 07/15/2025 7:03 AM [facility] BUN 28(H) 8 - 23 mg/dL 07/15/2025 7:03 AM [facility] CREATININE 1.34(H) 0.51 - 0.95 mg/dL 07/15/2025 7:03 AM [facility] GLUCOSE 85 74 - 99 mg/dL 07/15/2025 7:03 AM [facility] TOTAL PROTEIN 5.1(L) 6.4 - 8.3 g/dL 07/15/2025 7:03 AM T [facility] ALBUMIN 3.0(L) 3.5 - 5.2 g/dL 07/15/2025 7:03 AM [facility] BILIRUBIN TOTAL 0.4 0.0 - 1.0 mg/dL 07/15/2025 7:03 AM [facility] ALKALINE PHOSPHATASE 45 35 - 104 U/L 07/15/2025 7:03 AM [facility] AST 17 10 - 35 U/L 07/15/2025 7:03 AM [facility] ALT 9 <=35 U/L 07/15/2025 7:03 AM [facility] GFR 44(L) >=60 mL/min/1. 73 sq meter 07/15/2025 7:03 AM [facility] Comment:eGFR calculated with 2020 CKD-EPI equation. Vegetarian diet, extremely high or low muscle mass, and may affect results. Cystatin C with Glomerular Filtration Rate is a suitable alternative for these patients. ANION GAP 6(L) 9 - 20 mmol/L 07/15/2025 7:03 AM [facility] Blood Venipuncture / Unknown 07/15/2025 5:41 AM CDT 07/15/2025 6:27 AM CDT us Nava Quiros METAPHYSICS TEACHER CHEMISTRY ORDERABLES Final Result [facility] CLIA # [id number] [address] [place] [address] * POC GLUCOSE (07/14/2025 4:48 PM CDT) Only the most recent of12 resultswithin the time period is included. GLUCOSE POC 98 74 - 99 mg/dL 07/14/2025 4:48 PM T [facility] SPECIMEN SOURCE, GLUCOSE POC Capillary 07/14/2025 4:48 PM [facility] Blood, whole 07/14/2025 4:48 PM CDT 07/14/2025 5:25 PM CDT Natanael Schultz MD POINT OF CARE TESTING Final Result [facility] CLIA # [id number] [address] [place] [address] [place] [address] * (ABNORMAL) RENAL FUNCTION PANEL (07/14/2025 2:06 PM CDT) SODIUM 135(L) 136 - 145 mmol/L 07/14/2025 2:48 PM CDT [facility] POTASSIUM 4.6 3.5 - 5.1 mmol/L 07/14/2025 2:48 PM CDT [facility] CHLORIDE 98 98 - 107 mmol/L 07/14/2025 2:48 PM CDT [facility] CO2 29 22 - 29 mmol/L 07/14/2025 2:48 PM CDT [facility] CALCIUM 8.9 8.8 - 10.2 mg/dL 07/14/2025 2:48 PM CDT [facility] BUN 29(H) 8 - 23 mg/dL 07/14/2025 2:48 PM CDT [facility] CREATININE 1.38(H) 0.51 - 0.95 mg/dL 07/14/2025 2:48 PM CDT [facility] GLUCOSE 92 74 - 99 mg/dL 07/14/2025 2:48 PM CDT [facility] ALBUMIN 3.3(L) 3.5 - 5.2 g/dL 07/14/2025 2:48 PM CDT [facility] PHOSPHORUS 3.0 2.5 - 4.5 mg/dL 07/14/2025 2:48 PM CDT [facility] GFR 43(L) >=60 mL/min/1. 73 sq meter 07/14/2025 2:48 PM CDT [facility] Comment:eGFR calculated with 2020 CKD-EPI equation. Vegetarian diet, extremely high or low muscle mass, and may affect results. Cystatin C with Glomerular Filtration Rate is a suitable alternative for these patients. ANION GAP 8(L) 9 - 20 mmol/L 07/14/2025 2:48 PM CDT [facility] Blood Venipuncture / Unknown 07/14/2025 2:06 PM CDT 07/14/2025 2:10 PM CDT us Natanael Schultz MD CHEMISTRY ORDERABLES Final R esult [facility] CLIA # [id number] [facility] [address] * UPPER ENDOSCOPY REPORT (07/13/2025 12:04 PM CDT) Narrative Procedure Note Griffin San MD - 07/13/2025 12:04 PM CDT [facility] GI Patient Name: Viola Ennis Procedure Date: [...] Withdrawal Time Scope In: Scope Out: [address] [place], [place] Griffin San MD GI PROCEDURE ORDERABLES Final Result * PATHOLOGY (07/13/2025 11:59 AM CDT) CASE REPORT Surgical Pathology Report Case: [id number] Authorizing Provider: Griffin San MD Collected: 07/13/2025 11:59 AM Ordering Location: [facility] Received: 07/14/2025 06:37 AM Endoscopy Pathologist: Susie Powers MD Specimen: Stomach 5 6:43 AM CDT [facility] FINAL DIAGNOSIS A. Stomach, biopsy - Focally active chronic gastritis with associated reactive/regenerative epithelial and stromal changes, consistent with repair - No intestinal metaplasia, dysplasia, or malignancy - Immunohistochemistry for Helicobacter pylori is negative Susie Powers MD [id number] 5 6:43 AM CDT [facility] at 0643 CDT GROSS DESCRIPTION A. Received in a container of formalin labeled [place] -stomach rule out gastritis and H. pylori are two fragments of mucosa, up to 0.3 cm in greatest dimension. The specimen is submitted entirely in A1. Grossed by: Dunia Mcdowell MS, PA ([facility]) 5 6:43 AM CDT [facility] MICROSCOPIC DESCRIPTION Immunohistochemistry for Helicobacter pylori was ordered on block A1 after review of H&E-stained slides based on the presence of inflammatory changes and clinician request to evaluate for infection. 5 6:43 AM CDT [facility] OPERATIVE PROCEDURE 1: ESOPHAGOGASTRODUODENOSCO PY 5 6:43 AM CDT [facility] CLINICAL INFORMATION R/o gastritis vs R/o H Pylori 5 6:43 AM CDT [facility] COMMENT The [employer] voice-activated dictation system may have been used [...] determined by the Diagnostic Immunohist[facility] of [facility] in compliance with CLIA'88 regulations. Some of these tests rely on the use of analyte specific reagents and are subject to specific labeling requirements by the FDA. All controls show appropriate reactivity. This testing was developed by the [facility]ohist[facility] of [facility]. It has not been cleared or approved by the FDA. The FDA has determined that such clearance or approval is not necessary. 5 6:43 AM CDT [facility] Tissue ENTIRE STOMACH / Unknown Collection / Unknown 07/13/2025 11:59 AM CDT 07/14/2025 6:37 AM CDT Comment:R/o gastritis vs R/o H Pylori us Griffin San MD PATHOLOGY/CYTOLOGY ORDERABLES Final Result [facility] CLIA # [id number] [address] [place] [id number] * MAGNESIUM LEVEL (07/13/2025 4:27 AM CDT) Only the most recent of2 resultswithin the time period is included. MAGNESIUM 2.2 1.6 - 2.4 mg/dL 07/13/2025 5:27 AM CDT [facility] Blood Venipuncture / Unknown 07/13/2025 4:27 AM CDT 07/13/2025 4:55 AM CDT Natanael Schultz MD CHEMISTRY ORDERABLES Final R esult Performing Organization Address [facility]/ZIP Co de Phone Number [facility] CLIA # [id number] [address] [address] [place] [address] * (ABNORMAL) LACTATE DEHYDROGENASE (07/13/2025 4:27 AM CDT) Only the most recent of2 resultswithin the time period is included. LD (LACTATE DEHYDROGENASE) 351(H) 135 - 214 U/L 07/13/2025 8:05 AM CDT [facility] Blood Venipuncture / Unknown 07/13/2025 4:27 AM CDT 07/13/2025 4:55 AM CDT Dunia Baron DO CHEMISTRY ORDERABLES Fi nal Result Performing Organization Address [facility] Co de Phone Number [facility] CLIA # [id number] [address] [address] * (ABNORMAL) HAPTOGLOBIN (07/12/2025 1:26 PM CDT) HAPTOGLOBIN <10(L) 30 - 200 mg/dL 07/12/2025 2:36 PM CDT [facility] Blood Venipuncture / Unknown 07/12/2025 1:26 PM CDT 07/12/2025 1:39 PM CDT Dunia Baron DO CHEMISTRY ORDERABLES Fi nal Result [facility] [employer] [facility] CLIA # [id number] [address] [address] [place] [address] * (ABNORMAL) PHOSPHORUS (07/12/2025 2:04 AM CDT) PHOSPHORUS 2.4(L) 2.5 - 4.5 mg/dL 07/12/2025 2:59 AM CDT [facility] [employer] [facility] Blood Venipuncture / Unknown 07/12/2025 2:04 AM CDT 07/12/2025 2:27 AM CDT Natanael Schultz MD CHEMISTRY ORDERABLES Final R esult [facility] [employer] [facility] CLIA # [id number] [address] [address] from Last 3 Months Insurance [place]ID [address] [place] [address] [place] [address] Advance Directives For more information, please contact: [phone] * Full Code (Latest Code Status on File) Date Activated Date Inactivated Comments 07/10/2025 10:39 AM 07/15/2025 2:55 PM * Default Full Code - Needs Discussion Date Activated Date Inactivated Comments 07/08/2025 4:52 PM 07/10/2025 10:39 AM Care Teams Forklift Truck Mechanic Relationship Specialty Start Date End Date Non-Staff, Physician NO ADDRESS ON FILE PCP - General 04/15/12
--- OUTSIDE RECORDS SUMMARY | 2025-10-11 13:37 | XMS_ITS | Encounter Summary ---
Author Organization [facility] Address [address] [place] [address] Care Team Providers Care Intrusion Analyst Name Role Phone Non-Staff, Physician Primary Care Provider Unava ilable Encounter Details Date Type Department Care Team (Latest Contact Info) Description 08/19/2001 Outpatient Historical [facility] [address] [facility] [address] [place] [address] Ana Smith MD NO ADDRESS ON FILE Other screening mammogram (Primary Dx) Social History Tobacco Use Types Packs/Day Years Used Date Smoking Tobacco: Never Assessed Comments Unknown Sex and Gender Information Value Date Recorded Sex Assigned at Not on file 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
--- OUTSIDE RECORDS SUMMARY | 2025-10-11 13:37 | XMS_ITS | Encounter Summary ---
Author Organization [facility] Address [address] [place] [address] Care Team Providers Care Door Core Assembler Name Role Phone Non-Staff, Physician Primary Care Provider Unava ilable Encounter Details Date Type Department Care Team (Latest Contact Info) Description 09/13/2002 Outpatient [facility] Breast Center [facility] [address] [place] [address] Elias Chow Jr., MD [address] [place] [address] SCREENING MAMM-MAILG NEOPL-OTHER (Primary Dx) Social History Tobacco Use Types Packs/Day Years Used Date Smoking Tobacco: Never Assessed Comments Unknown Sex and Gender Information Value Date Recorded Sex Assigned at Not on file 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
--- OUTSIDE RECORDS SUMMARY | 2025-10-11 13:37 | XMS_ITS | Encounter Summary ---
Author Organization [facility] Address [address] [place] [address] Care Team Providers Care Audit Machine Operator Name Role Phone Non-Staff, Physician Primary Care Provider Unava ilable Encounter Details Date Type Department Care Team (Late st Contact Info) Description 10/24/2008 Outpatient [facility] Breast Center [facility] [address] [place] [address] Lelia Jacobo MD NO ADDRESS ON FILE Social History Tobacco Use Types Packs/Day Years Used Date Smoking Tobacco: Never Assessed Comments Unknown Sex and Gender Information Value Date Recorded Sex Assigned at Not on file 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
--- OUTSIDE RECORDS SUMMARY | 2025-10-11 13:37 | XMS_ITS | Encounter Summary ---
Author Organization [facility] Address [address] [place] [address] Care Team Providers Care Fundraising Specialist Name Role Phone Non-Staff, Physician Primary Care Provider Unava ilable Encounter Details Date Type Department Care Team (Latest Contact Info) Description 03/29/1998 Outpatient Historical [facility] Elias Chow Jr., MD [address] [place] [address] Symptomatic menopausal or female climacteric states (Primary Dx) Social History Tobacco Use Types Packs/Day Years Used Date Smoking Tobacco: Never Assessed Comments Unknown Sex and Gender Information Value Date Recorded Sex Assigned at Not on file 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
--- NOTE | 2025-10-11 13:44 | ECG_ITS ---
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 Measurements Intervals [place] Rate: 72 P: 57 VT: 151 QRS: -20 QRSD: 108 T: 47 QT: 408 QTc: 448 Interpretive Statements SINUS RHYTHM Compared to ECG 08/12/2025 22:02:49 No significant changes Electronically Signed On 10-11-2025 21:36:17 CUT PRESSMAN by Carrie Tesfaye M.D. [email or web address]
--- NOTE | 2025-10-11 13:44 | CT_ITS ---
WS: [id number] CT HEAD TECHNIQUE: Noncontrast CT of the head obtained from the skullbase to the vertex. CLINICAL INFORMATION: Fall COMPARISON: 08/12/2025 DLP: 1057.[address] scans at [facility] use at least one of these dose optimization techniques: automated exposure control; mA and/or kV adjustment per patient size (includes targeted exams where dose is matched to clinical indication); or iterative reconstruction. FINDINGS: No evidence of intracranial hemorrhage or mass effect. Ventricular system and basal cisterns are patent. Mild small vessel changes with mild parenchymal volume loss. No extra-axial fluid collections. No evidence of mass or mass effect. LEFT maxillary sinusitis. Mucosal thickening in the ethmoid air cells. Mastoid air cells are well aerated. CT/CT head wo con* [id number] IMPRESSION: 1. No evidence of intracranial hemorrhage or mass effect. 2. LEFT maxillary sinusitis. 3. No acute intracranial findings.
[2025-10-11 13:50] LABS: UA Slide Review UA Slide Review Perf
[2025-10-11 14:26] LABS: Troponin(5th) Baseline 42 ng/L (0-10)
[2025-10-11 14:44] LABS: Lactic Sepsis W/Reflex 1.4 mmol/L (0.5-2.2)
--- NOTE | 2025-10-11 14:44 | ECG_ITS ---
[facility] Test Date: 2025-10-11 Pat Name: Viola Ennis Department: Room: 263 Gender: Female Director Selection And Administration: : 1960 Requested By: Juancarlos Herrera Order Number: [id number] Duke MD: Carrie Tesfaye M.D. Measurements Intervals [place] Rate: 72 P: 69 CT: 124 QRS: -15 QRSD: 82 T: 50 QT: 412 QTc: 453 Interpretive Statements SINUS RHYTHM Compared to ECG 08/12/2025 22:02:49 No significant changes Electronically Signed On 10-11-2025 21:43:23 AERIAL APPLICATOR PILOT by Carrie Tesfaye M.D. [email or web address]
--- NOTE | 2025-10-11 15:01 | CTR_ITS ---
PROCEDURE INFORMATION: Exam: CT Abdomen And Pelvis Without Contrast Exam date and time: 10/11/2025 3:16 PM Age: 65 years old Clinical indication: Abdominal pain TECHNIQUE: Imaging protocol: Computed tomography of the abdomen and pelvis without contrast. Radiation optimization: All CT scans at this facility use at least one of these dose optimization techniques: automated exposure control; mA and/or kV adjustment per patient size (includes targeted exams where dose is matched to clinical indication); or iterative reconstruction. COMPARISON: CT abdomen pelvis wo con [id number] 07/02/2025 4:22 PM RADIATION DOSE METRICS: Total DLP (mGy-cm): 482.24 FINDINGS: Lungs: Posterior band of atelectasis in the lingula. Minimal dependent atelectasis left lower lobe. Coronary arteries: There is severe atherosclerotic calcification of the coronary arteries. Liver: Normal. No mass. Gallbladder and biliary ducts: Post cholecystectomy. Pancreas: Normal. No ductal dilation. Spleen: Normal. No splenomegaly. Adrenal glands: Normal. No mass. Kidneys and ureters: Previously noted left hydronephrosis has resolved completely. No nephrolithiasis. Stomach and bowel: Unremarkable. No obstruction. No mucosal thickening. Appendix: No evidence of appendicitis. Intraperitoneal space: Unremarkable. No free air. No significant fluid collection. Vasculature: The aorta demonstrates moderate atherosclerotic calcification. Lymph nodes: Unremarkable. No enlarged lymph nodes. Urinary bladder: [employer] prominent distension of the bladder despite the presence of a Zimmerman catheter in the bladder lumen. Reproductive: Status post hysterectomy. Bones/joints: Extensive postsurgical changes in the thoracolumbar spine for scoliosis surgery with trans sacroiliac joint screws attached to the rods. Severe stabilized thoracolumbar dextroscoliosis. Fcpuzras-tg-orzlji osteopenia. No evidence of hardware failure or migration. Soft tissues: Cachectic body habitus. Xfyqiyfd-rs-kbztoc sarcopenia. CT/CT abdomen pelvis wo con [id number] IMPRESSION: 1. No acute findings. 2. Prominently distended bladder despite the presence of a Zimmerman catheter. If the catheter was clamped prior to the CT scan this is to be expected. If not, the catheter may be clogged.
[2025-10-11 15:18] LABS: PCP Screen Urine Negative (Negative)
[2025-10-11 15:33] LABS: Ammonia 12 umol/L (11-51)
[2025-10-11 15:37] LABS: ABG PCO2 34.5 mmHg (35-45); ABG PH Result 7.48 (7.35-7.45); Alveolar-Arterial Oxygen Gradi 6.1 mmHg (5-10); Arterial Blood Gas Hematocrit 46.1 % (37-47); Blood Gas Allen Test Pos; Blood Gas Operator Identificat WALCI; Blood Gas Sample Site Radial, left; Blood Gas Sample Type Arterial; Carboxyhemoglobin 0.9 %THgb (0.4-20.1); Glucose Level-ABG 91.0 mg/dL (70-115); HCO3 ABG 25.5 mmol/L (22-26); Ionized Calcium Level - ABG 1.2 mmol/L (1.1-1.4); Methemoglobin 0.2 % (0.4-1.5); Oxygen Saturation ABG 90.9; PO2 ABG 59.0 mmHg (80.0-100.0); PO2 FiO2 Ratio Arterial Blood 280; Potassium Level - ABG 3.7 mmol/L (3.5-5.0); Sodium Level - ABG 138.0 mmol/L (131-143)
[2025-10-11 15:39] LABS: Acetaminophen < 5.0 ug/mL (10-30); Alcohol Level < 10 mg/dL (0-10); Salicylate < 0.3 mg/dL (3-10)
--- NOTE | 2025-10-11 16:51 | PM.HP ---
Documented by User: Lizzie Maya NP 10/11/25 18:54 Providers/Chief Complaint Admitting Physician: Sea Foley Primary Care Provider: TONI Fritz Chief Complaint: Weakness History of Present Illness Viola Ennis is a 65 year old female with pmhx of COPD, CHF, CAD, HLD, GERD, hypothyroidism, anxiety, previous brainstem stroke, and anoxic brain injury present today via EMS w/ c/o AMS. Patient presents today having left [facility] AMA 3 days ago w/ AMS-only answering yes/no questions. Family reports last known normal was 10/10/2025 around 0700. Due to mental status and no family present at bedside unable to complete ROS. Patient to be admitted inpatient with hospitalist services and neurology consult for further medical management and care. While in ED a CBC, CMP, ABG, troponin series, lipase, UA, and toxicology were obtained, reviewed and results as follows: CBC unremarkable, CMP unremarkable, ABG: pH 7.48, pCO2 34.5, pO2 59, base excess 2.3. Baseline troponin 42, 2-hour troponin 44.02, delta troponin T 2.02. Lipase 27. UA: Negative. Toxicology positive for marijuana. Blood cultures obtained, pending. While in ED patient received following medications: NS at 100ml/hr. Review of Systems General: Reports: ROS unobtainable due to mental status Medications/Allergies Home Medications ?Medication ?Instructions ?Recorded ?Confirmed ?Last Taken ?Type potassium gluconate 595 mg (99 mg) 595 mg PO TID@08,15,03/12/20 08/14/25 07/02/25 History tablet mbdffhb-sdhllugxlowfu-tguwjoio 250 1 tab PO Q6H PRN Pain 09/14/24 10/11/25 05/14/25 History mg-250 mg-65 mg tablet (Excedrin Extra Strength) carvedilol 6.25 mg tablet (Coreg) 6.25 mg PO Q12H #180 tabs 12/19/24 08/14/25 07/02/25 Rx fenofibrate micronized 134 mg 134 mg PO DAILY@15 #90 caps 12/19/24 08/14/25 07/01/25 Rx capsule gabapentin 800 mg tablet 800 mg PO TID #360 tabs 12/19/24 08/14/25 07/02/25 Rx levothyroxine 50 mcg tablet 50 mcg PO DAILY@1500 #90 tabs 12/19/24 08/14/25 07/01/25 Rx linaclotide 145 mcg capsule 145 mcg PO BEDTIME #90 caps 12/19/24 08/14/25 07/01/25 Rx (Linzess) paroxetine HCl 30 mg tablet 30 mg PO DAILY #90 tabs 12/19/24 08/14/25 07/02/25 Rx syringe with needle 3 mL 25 gauge #5 ea 12/19/24 08/14/25 Unknown Rx x 1 (BD Luer-Rae Syringe) irbesartan 75 mg tablet 75 mg PO DAILY 07/06/25 08/14/25 Unknown History omeprazole 20 mg capsule,delayed 20 mg PO DAILY 07/06/25 08/14/25 Unknown History release terconazole 0.4 % vaginal cream 1 appful vaginal .at bedtime #45 08/30/25 Unknown Rx grams baclofen 10 mg tablet See Rx Instructions .Route 09/18/25 Unknown Rx .COMPLEX #360 tabs glycopyrrolate 1 mg tablet 1 mg PO TID #90 tabs 09/19/25 Unknown Rx (Robinul) Allergies Allergy/AdvReac Type Severity Reaction Status Date / Time atorvastatin (From Lipitor) Allergy Unknown known Verified 08/14/25 17:37 ezetimibe (From Zetia) Allergy Unknown unknown Verified 08/14/25 17:37 rosuvastatin (From Crestor) Allergy Unknown unknown Verified 08/14/25 17:37 Gecqzyn-XEA-VzU Reductase Allergy Unknown Unknown Verified 08/14/25 17:37 Inhibitor (Bjpoawl-Yvs-Twx Reductase Inhibitor) Sulfa (Sulfonamide Allergy Unknown Unknown Verified 08/14/25 17:37 Antibiotics) sumatriptan (From Imitrex) Allergy Unknown known Verified 08/14/25 17:37 IV contrast dye Allergy ALGY-Anaphy Uncoded 08/14/25 17:37 laxis PFSH Acute PFSH: Medical History Pneumonia COPD (chronic obstructive pulmonary disease) Dehydration Hyperkalemia Acute kidney injury superimposed on CKD Altered mental status Anxiety, generalized CHF (congestive heart failure), NYHA class III Constipation, slow transit 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 CAD (coronary artery disease) Vitamin B12 deficiency Essential (primary) hypertension Gastric reflux Fibromyalgia muscle pain Osteopenia of multiple sites Chronic bilateral low back pain with bilateral sciatica Vitamin D deficiency Mixed hyperlipidemia Adult onset hypothyroidism Hypotension, unspecified Neuropathic pain of both legs Surgical History History of back surgery History of cholecystectomy History of tonsillectomy History of hysterectomy Family History Other Arthritis Coronary artery disease involving tlingit & haida coronary artery of tlingit & haida heart with unstable angina pectoris Diabetes Hypertension Thyroid disease Social History Smoking and tobacco/nicotine status: never used tobacco/nicotine Second hand smoke exposure: Yes Alcohol intake: never Substance/Drug Use: unknown Adopted: No Caregiver/support person: Yes Lives independently: No Household members: family Housing: House Marital status: service: No Current occupational status: disabled Do you think of yourself as: Straight/Heterosexual Current gender identity: Female Vitals/I&O/Wt Last Vital Signs Temp 98.7 F 10/11/25 12:37 Pulse 85 10/11/25 15:52 Resp 13 10/11/25 14:20 BP 185/97 10/11/25 15:52 Pulse Ox 93 10/11/25 15:52 O2 Del Method Room Air 10/11/25 12:37 Weight last 48 hrs Weight 63.503 kg Physical Exam Narrative: General: No apparent distress, on room air. Only responding to yes/no questions. HEENT: Normo-cephalic, atraumatic, grossly unremarkable exam Cardio: NSR, normal S1-S2 without any murmurs, rubs, or gallops and JVD normal Respiratory: Clear to bilateral upper and lower lobes on auscultation GI: Tenderness and distension to lower ABD, normo-active bowel sounds present : Zimmerman catheter in place Behavior: Appropriate and cooperative Extremities: 1+ edema, adequate palpable pulses. No clubbing, cyanosis. Urinary Catheter Management: Zimmerman: Cath Placed During This Visit: yes Urinary Catheter Date of Insertion: 10/11/25 Urinary Catheter Time of Insertion: 14:00 Data 10/11/25 12:50 10/11/25 12:50 Other Labs: 10/11: EKG 1444: NSR, no ST changes, QRS 82, QTc 453, HR 72 10/11: EKG 1344: NSR, no ST changes, QRS 108, QTc 448, HR 72 10/11: ABD/pelvis CT: Reviewed and results as follows: No acute findings. Prominently distended bladder despite the presence of a Zimmerman catheter. If the catheter was clamped prior to the CT scan this is to be expected. If not, the catheter may be clogged. 10/11: Head CT: Reviewed and results as follows: No evidence of intracranial hemorrhage or mass effect. LEFT maxillary sinusitis.No acute intracranial findings 10/11: CXR: Reviewed and results as follows: Atherosclerosis. Micro: Microbiology 10/11/25 12:50 Blood Culture - Preliminary Blood SPECIMEN COLLECTED 10/11/25 12:56 Blood Culture - Preliminary Blood SPECIMEN COLLECTED A&P Assessment and plan 1. Encephalopathy, unspecified type: 2. CHF (congestive heart failure), NYHA class III: 3. CAD (coronary artery disease): 4. Vitamin B12 deficiency: 5. Mixed hyperlipidemia: 6. Gastric reflux: 7. Neuropathic pain of both legs: 8. COPD (chronic obstructive pulmonary disease): 9. Cigarette smoker: 10. Marijuana use: 11. History of anoxic brain injury: 12. History of CVA (cerebrovascular accident): Plan: Encephalopathy Hx of brainstem stroke, anoxic brain damage - Causes unclear, hypertensive encephalopathy versus cerebral ischemia. No obvious seizure to be noted by family. Question of possible medication intoxication of baclofen or gabapentin. No obvious signs of infection. - 10/11: EKG 1444: NSR, no ST changes, QRS 82, QTc 453, HR 72 - 10/11: EKG 1344: NSR, no ST changes, QRS 108, QTc 448, HR 72 - 10/11: ABD/pelvis CT: Reviewed and results as follows: No acute findings. Prominently distended bladder despite the presence of a Zimmerman catheter. If the catheter was clamped prior to the CT scan this is to be expected. If not, the catheter may be clogged. - 10/11: Head CT: Reviewed and results as follows: No evidence of intracranial hemorrhage or mass effect. LEFT maxillary sinusitis.No acute intracranial findings - 10/11: CXR: Reviewed and results as follows: Atherosclerosis. - Neurology consulted-Dr. Mei. Recommendations and expertise appreciated. - UA negative for UTI - Respiratory viral panel ordered, pending. - Blood cultures ordered, pending. - Fall precautions, Neurochecks - Monitor renal, liver function. - Monitor electrolytes - Check B12, folate, TSH, prolactin ordered, pending. - Maintain SPO2 >90% - Avoid benzos - Delirium mgt: shades up during day, daylight reorientation, cluster activities for rest CHF HTN - Continue home medication irbesartan 75mg PO dly, carvedilol 6.25mg PO dly CAD HLD - Lipid panel ordered: - Continue home medication Fenofibrate 134 mg PO dly GERD - Hold home medication omeprazole 20 mg PO dly - Protonix 40 mg PO dly Hypothyroidism - Continue home medication levothyroxine 50 mcg dly - TSH ordered, pending. COPD - Continue home medication Glycopyrrolate 1mg PO TID - Vital signs as per protocol - O2 sat goal 88-92% Depression Anxiety - Continue home medication paroxetine 30mg dly Neuropathy - Continue home medication at half dose gabapentin 400 mg PO TID CODE STATUS: AND GI prophylaxis: Protonix 40 mg PO dly VTE prophylaxis: Lovenox 40 mg SC dly PDMP PDMP Reviewed: Not Reviewed Attestations Medical Necessity Statement*: Admitted under inpatient status. Given complexity of patient's presentation, encephalopathy of unknown cause, co-morbid conditions, and required intensity of treatment, a hospitalization exceeding two midnights is anticipated. and High Time for a total of 76 minutes, includes reviewing past or interval history, examining/interviewing patient, placing orders, counseling patient/family/other support, updating patient/family/other support, discussing plan of care with staff, communicating with other healthcare providers, documenting encounter and coordinating care Diagnoses Encephalopathy, unspecified type G93.40 Encephalopathy type: unspecified encephalopathy CHF (congestive heart failure), NYHA class III I50.9 Congestive heart failure chronicity: chronic CAD (coronary artery disease) I25.10 Vitamin B12 deficiency E53.8 Mixed hyperlipidemia E78.2 Gastric reflux K21.9 Neuropathic pain of both legs G57.93 COPD (chronic obstructive pulmonary disease) J44.9 Cigarette smoker F17.210 Marijuana use F12.90 History of anoxic brain injury Z86.69 History of CVA (cerebrovascular accident) Z86.73 Documented by User: Sea Foley MD 10/11/25 20:16 Providers/Chief Complaint Chief Complaint: Weakness Medications/Allergies Home Medications ?Medication ?Instructions ?Recorded ?Confirmed ?Last Taken ?Type potassium gluconate 595 mg (99 mg) 595 mg PO TID@08,,03/12/20 08/14/25 07/02/25 History tablet ncppolg-sogwnhknitbtz-llnexmrd 250 1 tab PO Q6H PRN Pain 09/14/24 10/11/25 05/14/25 History mg-250 mg-65 mg tablet (Excedrin Extra Strength) carvedilol 6.25 mg tablet (Coreg) 6.25 mg PO Q12H #180 tabs 12/19/24 08/14/25 07/02/25 Rx fenofibrate micronized 134 mg 134 mg PO DAILY@15 #90 caps 12/19/24 08/14/25 07/01/25 Rx capsule gabapentin 800 mg tablet 800 mg PO TID #360 tabs 12/19/24 08/14/25 07/02/25 Rx levothyroxine 50 mcg tablet 50 mcg PO DAILY@1500 #90 tabs 12/19/24 08/14/25 07/01/25 Rx linaclotide 145 mcg capsule 145 mcg PO BEDTIME #90 caps 12/19/24 08/14/25 07/01/25 Rx (Linzess) paroxetine HCl 30 mg tablet 30 mg PO DAILY #90 tabs 12/19/24 08/14/25 07/02/25 Rx syringe with needle 3 mL 25 gauge #5 ea 12/19/24 08/14/25 Unknown Rx x 1 (BD Luer-Rae Syringe) irbesartan 75 mg tablet 75 mg PO DAILY 07/06/25 08/14/25 Unknown History omeprazole 20 mg capsule,delayed 20 mg PO DAILY 07/06/25 08/14/25 Unknown History release terconazole 0.4 % vaginal cream 1 appful vaginal .at bedtime #45 08/30/25 Unknown Rx grams baclofen 10 mg tablet See Rx Instructions .Route 09/18/25 Unknown Rx .COMPLEX #360 tabs glycopyrrolate 1 mg tablet 1 mg PO TID #90 tabs 09/19/25 Unknown Rx (Robinul) Allergies Allergy/AdvReac Type Severity Reaction Status Date / Time atorvastatin (From Lipitor) Allergy Unknown known Verified 08/14/25 17:37 ezetimibe (From Zetia) Allergy Unknown unknown Verified 08/14/25 17:37 rosuvastatin (From Crestor) Allergy Unknown unknown Verified 08/14/25 17:37 Fxjwpqj-LVW-InA Reductase Allergy Unknown Unknown Verified 08/14/25 17:37 Inhibitor (Crqgexr-Rjp-Xge Reductase Inhibitor) Sulfa (Sulfonamide Allergy Unknown Unknown Verified 08/14/25 17:37 Antibiotics) sumatriptan (From Imitrex) Allergy Unknown known Verified 08/14/25 17:37 IV contrast dye Allergy ALGY-Anaphy Uncoded 08/14/25 17:37 laxis PFSH Acute PFSH: Medical History Pneumonia COPD (chronic obstructive pulmonary disease) Dehydration Hyperkalemia Acute kidney injury superimposed on CKD Altered mental status Anxiety, generalized CHF (congestive heart failure), NYHA class III Constipation, slow transit 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 CAD (coronary artery disease) Vitamin B12 deficiency Essential (primary) hypertension Gastric reflux Fibromyalgia muscle pain Osteopenia of multiple sites Chronic bilateral low back pain with bilateral sciatica Vitamin D deficiency Mixed hyperlipidemia Adult onset hypothyroidism Hypotension, unspecified Neuropathic pain of both legs Surgical History History of back surgery History of cholecystectomy History of tonsillectomy History of hysterectomy Family History Other Arthritis Coronary artery disease involving tlingit & haida coronary artery of tlingit & haida heart with unstable angina pectoris Diabetes Hypertension Thyroid disease Social History Smoking and tobacco/nicotine status: never used tobacco/nicotine Second hand smoke exposure: Yes Alcohol intake: never Substance/Drug Use: unknown Adopted: No Caregiver/support person: Yes Lives independently: No Household members: family Housing: House Marital status: service: No Current occupational status: disabled Do you think of yourself as: Straight/Heterosexual Current gender identity: Female Physical Exam Urinary Catheter Management: Zimmerman: Cath Placed During This Visit: yes Data 10/11/25 12:50 10/11/25 12:50 A&P Assessment and plan 1. Encephalopathy, unspecified type: 2. CHF (congestive heart failure), NYHA class III: 3. CAD (coronary artery disease): 4. Vitamin B12 deficiency: 5. Mixed hyperlipidemia: 6. Gastric reflux: 7. Neuropathic pain of both legs: 8. COPD (chronic obstructive pulmonary disease): 9. Cigarette smoker: 10. Marijuana use: 11. History of anoxic brain injury: 12. History of CVA (cerebrovascular accident): PDMP PDMP Reviewed: Not Reviewed Attestations Other Attestations: Patient case discussed with ED provider and reviewed and discussed with ELIAS including E&M. Coding Level of Care Code 27018 Diagnoses Encephalopathy, unspecified type G93.40 Encephalopathy type: unspecified encephalopathy CHF (congestive heart failure), NYHA class III I50.9 Congestive heart failure chronicity: chronic CAD (coronary artery disease) I25.10 Vitamin B12 deficiency E53.8 Mixed hyperlipidemia E78.2 Gastric reflux K21.9 Neuropathic pain of both legs G57.93 COPD (chronic obstructive pulmonary disease) J44.9 Cigarette smoker F17.210 Marijuana use F12.90 History of anoxic brain injury Z86.69 History of CVA (cerebrovascular accident) Z86.73
--- NOTE | 2025-10-11 18:02 | PM.CONSULT ---
Providers/Reason For Consult Consulting Physician/Specialty*: Dr. Mei Reason for Consult*: Altered mental status Requesting Physician: Dr. Robles Attending Physician: Sea Foley Primary Care Provider: TONI Fritz History of Present Illness History of Present Illness The last time I saw this 65-year-old woman she had post anoxic encephalopathy, was still acutely septic and had developed a repetitive behavioral pattern that was unusual but not specific. Because that behavioral pattern was so stereotyped and repetitive I suggested that it would be reasonable to treat her with Keppra in case it was related to seizures from her anoxia. Dr. Mitchell made a decision to transfer the patient to [place], where they treated her for sepsis and discharged her to [place]. I talked with her son, Josef. He reports that she made a full recovery from her severe sepsis and she was independent in self-care at [place]. She was coming to meals on her own, walking independently, feeding and dressing herself. She recently got the impression that everyone at the intermediate was suffering from COVID and she was afraid that with her fragile state, she would of COVID if she caught it. She decided to move in with her sister. Lakeshia says that the actual reason was that they would not allow her to go out and smoke because of the Covid. She got to [facility] on Thursday. She has been independent. She was taking better care of herself than she has in the past. Sometimes she let Lakeshia do everything for her. She smoked marijuana on Thursday afternoon and maybe thursday. Yesterday around noon she slept all afternoon. She was called for supper at 5 PM and fell to the floor. She was jerking. Lakeshia says that is her fibromyalgia. She was taking to [facility]. She has had these jerking spells for some time. She is not as alert as usual. She kept calling her sister MOM. 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 Since then she has had these episodes that her sister has witnessed. Lakeshia cannot take her back to her house. She needs to go to [facility]. This was the episode in the hospital 07/06/2025: There was an immediate myoclonic jerk with head turning to the right, eye opening, and the patient appeared to meet eye contact with me. She gradually relaxed back into a position of slightly turned to the left as she was in the bed. The procedure was repeated and this time I clapped several times very loudly and close to her. Again she turned briskly to the right, her eyes open wide and she appeared to make eye contact with the examiner. When I moved my face toward the midline she appeared to follow. On the third occasion she had associated mouth movement and her right hand pushed on the bed. All of her movements were stereotypic but complex. Despite this voluntary appearing behavior, she did not respond to voice, would not squeeze my hand, and when I repeated oculocephalic movements they were again absent and she did not meet my gaze without the full startle stereotypic behavior. Review of Systems Narrative: She has been losing weight for the last several years. CT of the abdomen on arrival here did not reveal a cause and she has had extensive gastrointestinal workup in the past Medications/Allergies Home Medications ?Medication ?Instructions ?Recorded ?Confirmed ?Last Taken ?Type potassium gluconate 595 mg (99 mg) 595 mg PO TID@08,15,22 03/12/20 08/14/25 07/02/25 History tablet eyvtprj-psjjsgbkhcxol-pebpakiv 250 1 tab PO Q6H PRN Pain 09/14/24 10/11/25 05/14/25 History mg-250 mg-65 mg tablet (Excedrin Extra Strength) carvedilol 6.25 mg tablet (Coreg) 6.25 mg PO Q12H #180 tabs 12/19/24 08/14/25 07/02/25 Rx fenofibrate micronized 134 mg 134 mg PO DAILY@15 #90 caps 12/19/24 08/14/25 07/01/25 Rx capsule gabapentin 800 mg tablet 800 mg PO TID #360 tabs 12/19/24 08/14/25 07/02/25 Rx levothyroxine 50 mcg tablet 50 mcg PO DAILY@1500 #90 tabs 12/19/24 08/14/25 07/01/25 Rx linaclotide 145 mcg capsule 145 mcg PO BEDTIME #90 caps 12/19/24 08/14/25 07/01/25 Rx (Linzess) paroxetine HCl 30 mg tablet 30 mg PO DAILY #90 tabs 12/19/24 08/14/25 07/02/25 Rx syringe with needle 3 mL 25 gauge #5 ea 12/19/24 08/14/25 Unknown Rx x 1 (BD Luer-Rae Syringe) irbesartan 75 mg tablet 75 mg PO DAILY 07/06/25 08/14/25 Unknown History omeprazole 20 mg capsule,delayed 20 mg PO DAILY 07/06/25 08/14/25 Unknown History release terconazole 0.4 % vaginal cream 1 appful vaginal .at bedtime #45 08/30/25 Unknown Rx grams baclofen 10 mg tablet See Rx Instructions .Route 09/18/25 Unknown Rx .COMPLEX #360 tabs glycopyrrolate 1 mg tablet 1 mg PO TID #90 tabs 09/19/25 Unknown Rx (Robinul) Allergies Allergy/AdvReac Type Severity Reaction Status Date / Time atorvastatin (From Lipitor) Allergy Unknown known Verified 08/14/25 17:37 ezetimibe (From Zetia) Allergy Unknown unknown Verified 08/14/25 17:37 rosuvastatin (From Crestor) Allergy Unknown unknown Verified 08/14/25 17:37 Ehpxzuh-VIS-TlS Reductase Allergy Unknown Unknown Verified 08/14/25 17:37 Inhibitor (Ecvfkhi-Gll-Rvc Reductase Inhibitor) Sulfa (Sulfonamide Allergy Unknown Unknown Verified 08/14/25 17:37 Antibiotics) sumatriptan (From Imitrex) Allergy Unknown known Verified 08/14/25 17:37 IV contrast dye Allergy ALGY-Anaphy Uncoded 08/14/25 17:37 laxis Current Medications Generic Name Dose Route Start Last Admin Trade Name Freq PRN Reason Stop Dose Admin Enoxaparin Sodium 40 mg 10/11/25 17:30 10/11/25 17:58 Enoxaparin 40 Mg/0.4 Ml Syringe SUBCUT 40 mg Q24H JOSE ALFREDO Administration Sodium Chloride 1,000 mls @ 100 mls/hr 10/11/25 16:28 10/11/25 17:58 Sodium Chloride 0.9% IV 100 mls/hr .Q10H JOSE ALFREDO Administration PFSH Acute PFSH: Medical History Pneumonia COPD (chronic obstructive pulmonary disease) Dehydration Hyperkalemia Acute kidney injury superimposed on CKD Altered mental status Anxiety, generalized CHF (congestive heart failure), NYHA class III Constipation, slow transit 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 CAD (coronary artery disease) Vitamin B12 deficiency Essential (primary) hypertension Gastric reflux Fibromyalgia muscle pain Osteopenia of multiple sites Chronic bilateral low back pain with bilateral sciatica Vitamin D deficiency Mixed hyperlipidemia Adult onset hypothyroidism Hypotension, unspecified Neuropathic pain of both legs Surgical History History of back surgery History of cholecystectomy History of tonsillectomy History of hysterectomy Family History Other Arthritis Coronary artery disease involving tuscarora coronary artery of tuscarora heart with unstable angina pectoris Diabetes Hypertension Thyroid disease Social History Smoking and tobacco/nicotine status: never used tobacco/nicotine Second hand smoke exposure: Yes Alcohol intake: never Substance/Drug Use: unknown Adopted: No Caregiver/support person: Yes Lives independently: No Household members: family Housing: House Marital status: service: No Current occupational status: disabled Do you think of yourself as: Straight/Heterosexual Current gender identity: Female Vitals/I&O/Wt Last Vital Signs Temp 98.3 F 10/11/25 16:52 Pulse 86 10/11/25 16:52 Resp 17 10/11/25 16:52 BP 171/98 10/11/25 16:52 Pulse Ox 92 10/11/25 16:52 O2 Del Method Room Air 10/11/25 16:52 10/11/25 10/11/25 10/11/25 06:59 14:59 22:59 Output Total 200 / 200 Balance -200 / -200 Weight last 48 hrs Weight 140 lb Physical Exam Narrative: The patient's behavior is somewhat similar to what she exhibited in June when I saw her. She will make good eye contact. She will not tell me where she lives. She will answer yes and no questions appropriately. She would follow simple commands that were not effortful. She had no myoclonus. She appeared somewhat limp in all 4 extremities and would not maintain posture. Heart sounds were normal without murmur or gallop. Chest: Clear to auscultation. Abdomen soft. She winces with palpation. No rebound tenderness.. Extremities: Very thin and wasted. Deep tendon reflexes hypoactive throughout. Plantar response flexor Urinary Catheter Management: Zimmerman: Cath Placed During This Visit: yes Urinary Catheter Date of Insertion: 10/11/25 Urinary Catheter Time of Insertion: 14:00 Data 10/11/25 12:50 10/11/25 12:50 Micro: Microbiology 10/11/25 12:50 Blood Culture - Preliminary Blood SPECIMEN COLLECTED 10/11/25 12:56 Blood Culture - Preliminary Blood SPECIMEN COLLECTED A&P Assessment and plan 1. Focal onset cognitive epileptic seizure: I think this patient is likely having complex focal seizure with alteration of consciousness. Her sister describes episodes that are almost identical to what she had in the ICU that at the time I thought was postanoxic. Plan to start her on Keppra as I recommended the last time I saw her. Plan: Initiate Keppra. She will need physical and Occupational Therapy. PDMP PDMP Reviewed: Not Reviewed Consult Attestations Medical Necessity Statement: Sudden change in mental status with diffuse encephalopathy Time Spent in Patient Care: Chart review, patient review, talking with 2 family members, 70 minutes Coding Level of Care Code Acute Code for Chg Fwd Diagnoses Focal onset cognitive epileptic seizure G40.209
[2025-10-11 18:07] LABS: Thyroid Stimulating Hormone 1.33 uIU/mL (0.27-4.20)
[2025-10-11 18:59] LABS: Troponin 5 6HR 43.82 ng/L (0-10); Troponin 5 6HR Delta 1.82 ng/L (0-12)
--- OUTSIDE RECORDS SUMMARY | 2025-10-11 19:05 | XMS_ITS | Encounter Summary ---
Author Organization [facility] Address [address] [place] [address] Care Team Providers Care Administrative Program Specialist Name Role Phone Non-Staff, Physician Primary Care Provider Unava ilable Encounter Details Date Type Department Care Team (Late st Contact Info) Description 02/22/2002 Outpatient [facility] [address] [place] [phone] Social History Tobacco Use Types Packs/Day Years Used Date Smoking Tobacco: Never Assessed Comments Unknown Sex and Gender Information Value Date Recorded Sex Assigned at Not on file Legal Sex Female 7:06 AM EVP STRATEGY Gender Identity Not on file Sexual Orientation Not on file documented as of this encounter Plan of Treatment Not on file documented as of this encounter Visit Diagnoses Not on filedocumented in this encounter Care Teams Administrative Program Specialist Relationship Specialty Start Date End Date Non-Staff, Physician NO ADDRESS ON FILE PCP - General 04/15/12 documented as of this encounter
--- OUTSIDE RECORDS SUMMARY | 2025-10-11 19:05 | XMS_ITS | Encounter Summary ---
Author Organization [facility] Address [address] [place] [address] Care Team Providers Care Foot Roentgenologist Name Role Phone Non-Staff, Physician Primary Care Provider Unava ilable Encounter Details Date Type Department Care Team (Latest Contact Info) Description 03/18/2002 Outpatient Historical [facility] [address] [place] [phone] Juancarlos Maier MD NO ADDRESS ON FILE CERVICALGIA (Primary Dx) Social History Tobacco Use Types Packs/Day Years Used Date Smoking Tobacco: Never Assessed Comments Unknown Sex and Gender Information Value Date Recorded Sex Assigned at Not on file Legal Sex Female 7:06 AM ICE CREAM MIXER Gender Identity Not on file Sexual Orientation Not on file documented as of this encounter Plan of Treatment Not on file documented as of this encounter Visit Diagnoses Diagnosis Cervicalgia- Primary documented in this encounter Care Teams Foot Roentgenologist Relationship Specialty Start Date End Date Non-Staff, Physician NO ADDRESS ON FILE PCP - General 04/15/12 documented as of this encounter
--- OUTSIDE RECORDS SUMMARY | 2025-10-11 19:05 | XMS_ITS | Encounter Summary ---
Author Organization [facility] Address [address] [facility] Attn: Epic Prelude ADT [place] [address] Care Team Providers Care Rod Hanger Name Role Phone Non-Staff, Physician Primary Care [...] on file Legal Sex Female 7:06 AM SLAB WORKER Gender Identity Not on file Sexual Orientation Not on file documented as of this encounter Plan of Treatment Not on file documented as of this encounter Visit Diagnoses Not on filedocumented in this encounter Care Teams Rod Hanger Relationship Specialty Start Date End Date Non-Staff, Physician NO ADDRESS ON FILE PCP - General 04/15/12 documented as of this encounter
--- OUTSIDE RECORDS SUMMARY | 2025-10-11 19:05 | XMS_ITS | Encounter Summary ---
Author Organization [facility] Address [address] [facility] Attn: Epic Prelude ADT [place] [address] Care Team Providers Care Stitching Machine Setter Name Role Phone Non-Staff, Physician Primary Care [...] on file Legal Sex Female 7:06 AM SHOE REPAIR SUPERVISOR Gender Identity Not on file Sexual Orientation Not on file documented as of this encounter Plan of Treatment Not on file documented as of this encounter Visit Diagnoses Not on filedocumented in this encounter Care Teams Stitching Machine Setter Relationship Specialty Start Date End Date Non-Staff, Physician NO ADDRESS ON FILE PCP - General 04/15/12 documented as of this encounter
--- OUTSIDE RECORDS SUMMARY | 2025-10-11 19:05 | XMS_ITS | Encounter Summary ---
Author Organization [facility] Address [address] [facility] Attn: Epic Prelude ADT [place] [address] Care Team Providers Care Filler Mixer Name Role Phone Non-Staff, Physician Primary Care [...] on file Legal Sex Female 7:06 AM HEAD ATHLETIC TRAINER Gender Identity Not on file Sexual Orientation Not on file documented as of this encounter Plan of Treatment Not on file documented as of this encounter Visit Diagnoses Not on filedocumented in this encounter Care Teams Filler Mixer Relationship Specialty Start Date End Date Non-Staff, Physician NO ADDRESS ON FILE PCP - General 04/15/12 documented as of this encounter
--- OUTSIDE RECORDS SUMMARY | 2025-10-11 19:05 | XMS_ITS | Encounter Summary ---
Author Organization [facility] Address [address] [place] [address] Care Team Providers Care Business Proposal Rep Name Role Phone Non-Staff, Physician Primary Care Provider Unava ilable Encounter Details Date Type Department Care Team (Latest Contact Info) Description 11/19/2001 Outpatient Historical [facility] Luis Felipe Sanford MD [address] [place] [address] CERVICALGIA (Primary Dx); EDEMA Social History Tobacco Use Types Packs/Day Years Used Date Smoking Tobacco: Never Assessed Comments Unknown Sex and Gender Information Value Date Recorded Sex Assigned at Not on file Legal Sex Female 7:06 AM MAJOR APPLIANCE ASSEMBLY SUPERVISOR Gender Identity Not on file Sexual Orientation Not on file documented as of this encounter Plan of Treatment Not on file documented as of this encounter Visit Diagnoses Diagnosis Cervicalgia- Primary Edema documented in this encounter Care Teams Business Proposal Rep Relationship Specialty Start Date End Date Non-Staff, Physician NO ADDRESS ON FILE PCP - General 04/15/12 documented as of this encounter
--- OUTSIDE RECORDS SUMMARY | 2025-10-11 19:05 | XMS_ITS | Encounter Summary ---
Author Organization [facility] Address [address] [place] [address] Care Team Providers Care Accounting Administrative Assistant Name Role Phone Non-Staff, Physician Primary Care Provider Unava ilable Encounter Details Date Type Department Care Team (Late st Contact Info) Description 05/03/2002 Outpatient Historical [facility] [address] [place] [phone] Martell Baugh MD NO ADDRESS ON FILE MYALGIA AND MYOSITIS NOS (Primary Dx) Social History Tobacco Use Types Packs/Day Years Used Date Smoking Tobacco: Never Assessed Comments Unknown Sex and Gender Information Value Date Recorded Sex Assigned at Not on file Legal Sex Female 7:06 AM CHILD CARE PROVIDER Gender Identity Not on file Sexual Orientation Not on file documented as of this encounter Plan of Treatment Not on file documented as of this encounter Visit Diagnoses Diagnosis Myalgia and myositis, unspecified- Primary Mylagia and myositis, unspecified documented in this encounter Care Teams Accounting Administrative Assistant Relationship Specialty Start Date End Date Non-Staff, Physician NO ADDRESS ON FILE PCP - General 04/15/12 documented as of this encounter
--- OUTSIDE RECORDS SUMMARY | 2025-10-11 19:05 | XMS_ITS | Encounter Summary ---
Author Organization [facility] Address [address] [facility] [address] Mcmahonn: Epic Prelude ADT [place] [address] Care Team Providers Care Spine Specialist Name Role Phone Non-Staff, Physician Primary Care Provider Unava ilable Encounter Details Date Type Department Care Team (Late st Contact Info) Description 11/15/2001 Outpatient Historical Brice Price MD [address] [place] [phone] Social History Tobacco Use Types Packs/Day Years Used Date Smoking Tobacco: Never Assessed Comments Unknown Sex and Gender Information Value Date Recorded Sex Assigned at Not on file Legal Sex Female 7:06 AM ADJUNCT PHYSICS INSTRUCTOR Gender Identity Not on file Sexual Orientation Not on file documented as of this encounter Plan of Treatment Not on file documented as of this encounter Visit Diagnoses Not on filedocumented in this encounter Care Teams Spine Specialist Relationship Specialty Start Date End Date Non-Staff, Physician NO ADDRESS ON FILE PCP - General 04/15/12 documented as of this encounter
--- OUTSIDE RECORDS SUMMARY | 2025-10-11 19:05 | XMS_ITS | Encounter Summary ---
Author Organization [facility] Address [address] [facility] Attn: Epic Prelude ADT [place] [address] Care Team Providers Care Light Cleaner Name Role Phone Non-Staff, Physician Primary [...] on file Legal Sex Female 7:06 AM TOBACCO FLAVORER Gender Identity Not on file Sexual Orientation Not on file documented as of this encounter Plan of Treatment Not on file documented as of this encounter Visit Diagnoses Not on filedocumented in this encounter Care Teams Light Cleaner Relationship Specialty Start Date End Date Non-Staff, Physician NO ADDRESS ON FILE PCP - General 04/15/12 documented as of this encounter
--- OUTSIDE RECORDS SUMMARY | 2025-10-11 19:05 | XMS_ITS | Encounter Summary ---
Author Organization [facility] Address [address] [place] [address] Care Team Providers Care Asphalt Paver Operator Name Role Phone Non-Staff, Physician Primary Care Provider Unava ilable Encounter Details Date Type Department Care Team (Late st Contact Info) Description 02/22/2002 Outpatient Historical [facility] [address] [place] [phone] Martell Baugh MD NO ADDRESS ON FILE CERVICALGIA (Primary Dx) Social History Tobacco Use Types Packs/Day Years Used Date Smoking Tobacco: Never Assessed Comments Unknown Sex and Gender Information Value Date Recorded Sex Assigned at Not on file Legal Sex Female 7:06 AM STITCH SEPARATOR Gender Identity Not on file Sexual Orientation Not on file documented as of this encounter Plan of Treatment Not on file documented as of this encounter Visit Diagnoses Diagnosis Cervicalgia- Primary documented in this encounter Care Teams Asphalt Paver Operator Relationship Specialty Start Date End Date Non-Staff, Physician NO ADDRESS ON FILE PCP - General 04/15/12 documented as of this encounter
--- OUTSIDE RECORDS SUMMARY | 2025-10-11 19:06 | XMS_ITS | Encounter Summary ---
Author Organization [facility] Address [address] [place] [address] Care Team Providers Care Director Of Contracts Name Role Phone Non-Staff, Physician Primary Care Provider Unava ilable Encounter Details Date Type Department Care Team (Latest Contact Info) Description 08/12/2001 Outpatient Historical [facility] Cody Lofton MD [address] [place] [address] Headache(784.0) (Primary Dx); Cervicalgia Social History Tobacco Use Types Packs/Day Years Used Date Smoking Tobacco: Never Assessed Comments Unknown Sex and Gender Information Value Date Recorded Sex Assigned at Not on file Legal Sex Female 7:06 AM YARD CLEANER Gender Identity Not on file Sexual Orientation Not on file documented as of this encounter Plan of Treatment Not on file documented as of this encounter Visit Diagnoses Diagnosis Headache(784.0)- Primary Headache Cervicalgia documented in this encounter Care Teams Director Of Contracts Relationship Specialty Start Date End Date Non-Staff, Physician NO ADDRESS ON FILE PCP - General 04/15/12 documented as of this encounter
--- OUTSIDE RECORDS SUMMARY | 2025-10-11 19:06 | XMS_ITS | Encounter Summary ---
Author Organization [facility] Address [address] [place] [address] Care Team Providers Care Archery Equipment Repairer Name Role Phone Non-Staff, Physician Primary Care Provider Unava ilable Encounter Details Date Type Department Care Team (Latest Contact Info) Description 09/13/2002 Outpatient Historical [facility] [address] [facility] [address] [place] [address] Franklin Welsh MD NO ADDRESS ON FILE SCREENING MAMM-MAILG NEOPL-OTHER (Primary Dx) Social History Tobacco Use Types Packs/Day Years Used Date Smoking Tobacco: Never Assessed Comments Unknown Sex and Gender Information Value Date Recorded Sex Assigned at Not on file Legal Sex Female 7:06 AM FILM SORTER Gender Identity Not on file Sexual Orientation Not on file documented as of this encounter Plan of Treatment Not on file documented as of this encounter Visit Diagnoses Diagnosis Other screening mammogram- Primary documented in this encounter Care Teams Archery Equipment Repairer Relationship Specialty Start Date End Date Non-Staff, Physician NO ADDRESS ON FILE PCP - General 04/15/12 documented as of this encounter
--- OUTSIDE RECORDS SUMMARY | 2025-10-11 19:06 | XMS_ITS | Continuity of Care Document ---
Author Organization [facility] Elvia Humphrey, [facility] ([facility]) Address [address] [place] [address] Assessment No assessment recorded. Plan of Treatment [...] By Organization Details Last Modified Time 07/17/2025 [id number] Limited records. Planning for therapy at SNF with goal of returning home. Labs on Thursday. [email or web address] Not available 07/17/2025 18:07:39 Reason for Referral None Reported. Problems Name Problem SNOMED Code Status Onset Date Resolution Date Notes Provider Name and Address Organization Details Recorded Time Post-discharg e follow-up 379516494 [facility] 2024 [facility] Metabolic encephalopath y 21291244 Active 2024 [facility] Chronic obstructive pulmonary disease 70032968 Active 2024 [facility] Hypertensive heart failure 66989587 Active 2024 [facility] Fibromyalgia 721886135 Active 2024 [facility] 18:07:06 Hyperlipidemi a 74186383 [facility] 18:07:06 Problem Notes None recorded. Medical Equipment None Reported. Allergies Allergen ID Allergen Name Allergen Category Reaction Reaction Severity Criticality Documentation Date Start Date Code Code System Note Provider Name and Address Organization Details Recorded Time 04896 Iodinated contrast media (substanc e) medicatio n Not available Not available Not available 09/27/20252014 39280 2004 SNOMED Not Available [employer] 12:44:51 77946 Substance with sulfonami de structure and antibacte rial mechanism of action (substanc e) medicatio n Not available Not available Not available 09/27/20252014 21668 8003 SNOMED Not Available [employer] - [employer] 12:44:51 13507 sumatript an succinate medicatio n Not available Not available Not available 09/27/20252014 02730 RxNorm Comme nt: IMITR EX Not Available [employer] - [employer] 12:44:51 85708 sumatript an medicatio n Not available Not available Not available 09/27/2025 18768 RxNorm Not Available [employer] - prod 12:44:52 56737 iodine medicatio n anaphylax is Not available [facility] 09/27/20252011 5933 RxNorm Not Available [employer] - prod 12:44:53 22808 atorvasta tin medicatio n Not available Not available Not available 09/27/20252021 84042 RxNorm unrec ogniz ed react ion (text : Muscl e/Leanne nt Pain, code: 98498 8005) (from exter nal sourc e) Not Available [employer] - prod 5 12:44:56 00038 rosuvasta tin medicatio n Not available Not available Not available 09/27/20252021 38618 2 RxNorm unrec ogniz ed react ion (text : Unkno wn, code: 83958 5006) (from [facility]) Not Available [employer] - prod 12:44:56 95847 ezetimibe medicatio n Not available Not available Not available 09/27/20252021 38905 8 RxNorm unrec ogniz ed react ion (text : Unkno wn, code: 40469 5006) (from [facility]) Not Available [employer] - External Data Service - [facility] 12:44:56 Medications Name Sig Start Date Stop Date [...] BY MOUTH EVERY DAY for 5 days 09/22 /2025 completed Not Available Not Available Not Available peg 3350-electr olytes 236 gram-22.74 gram-6.74 gram-5.86 gram solution USE DIRECTED active Not Available Not Available No t Available Linzess 145 mcg capsule TAKE 1 CAPSULE BY MOUTH ONCE DAILY AT BEDTIME active Not Available Not Available No t Available Vitals Date Recorded Body weight Heart rate Respiratory rate Body temperature Oxygen saturation Systolic And Diastolic Provider Name and Address Organization Details Last Updated DateTime 5 86825.5 3 g 86 /min 18 /min 97.6 [degF] 91 % 132/90 mm[Hg] SERGO ALVAREZ [facility], [facility] 5 18:04:41 Social History None recorded. Functional Status None recorded. Mental Status None recorded. Family History Nothing Reported. Medical History No medical history recorded. Gynecological HistoryNo gynecological history recorded. Obstetrics History GPAL:G 0 P 0 0 0 0 Immunizations Vaccine Type Date Status Note Provider Nam e and Address Organization Details Recorded Time pneumococcal polysaccharide PPV23 4 completed Not Available [facility] 10/02/2025 13:54:20 Past Encounters Encounter ID Performer Location Encounter Start Date Encounter Closed Date Diagnosis/Indication Diagnosis SNOMED-CT Code Diagnosis ICD10 Code Diagnosis IMO Codes Diagnosis Note [id number] Babak Duarte DO [facility] ([facility]) [address] [place] [address] 07/17/2025 15:43:50 07/19/2025 11:23:12 Post-discharge follow-up 962446609 Z09 600340 Metabolic encephalopathy 71518714 G93.41 120829 Chronic ob structive pulmonary disease 33759332 J44.9 232565599 Hypertensi ve heart failure 90641970 I11.0 139937 Fibromyalgia 019916138 M 79.7 98944 Hyperlipidemia 11521146 E78.5 88061450 Health Concerns Section Related Observation LastModified by Organization Detai ls LastModified Time None Recorded Concern Status LastModified by Organization Details LastModified Time None Recorded Payers Encounter Date Sequence Insurance Name Policy Number Policy Saba Covered Member ID Saba Member ID Guarantor Name 07/17/2025 1 [employer] (MEDICARE REPLACEMENT/ ADVANTAGE - PPO) Rosenda Ennis [id number] Rosenda Ennis 07/17/2025 2 [place] Rosenda Ennis [id number] Rosenda Ennis Notes Date Note Type Note Provider Name and Address Organization Details Recorded Time 07/17/2025 text/html COPDReported by PatientHPI:For duration, patient reportshas noted for years. For severity, patient reportssevere.ROS as noted in the HPI new admit to snf after hospital stay. Babak Duarte, [address], [address], [facility], Elvia 07/18/2025 09:00:19 OBGyn Episode No OBEpisode recorded.
--- OUTSIDE RECORDS SUMMARY | 2025-10-11 19:06 | XMS_ITS | Encounter Summary ---
Author Organization [facility] Address [address] [place] [address] Care Team Providers Care Wet Process Miller Head Assistant Name Role Phone Non-Staff, Physician Primary Care Provider Unava ilable Encounter Details Date Type Department Care Team (Latest Contact Info) Description 12/04/1998 Outpatient Historical [facility] Elias Chow Jr., MD [address] [place] [phone] Gynecologic examination (Primary Dx); Cystitis, unspecified Social History Tobacco Use Types Packs/Day Years Used Date Smoking Tobacco: Never Assessed Comments Unknown Sex and Gender Information Value Date Recorded Sex Assigned at Not on file Legal Sex Female 7:06 AM MOLDED FRAMES ASSEMBLER Gender Identity Not on file Sexual Orientation Not on file documented as of this encounter Plan of Treatment Not on file documented as of this encounter Visit Diagnoses Diagnosis Gynecologic examination- Primary Gynecological examination Cystitis, unspecified documented in this encounter Care Teams Wet Process Miller Head Assistant Relationship Specialty Start Date End Date Non-Staff, Physician NO ADDRESS ON FILE PCP - General 04/15/12 documented as of this encounter
--- OUTSIDE RECORDS SUMMARY | 2025-10-11 19:06 | XMS_ITS | Encounter Summary ---
Author Organization [facility] Address [address] [place]: Epic Prelude ADT [place] [address] Care Team Providers Care Coal Shoveler Name Role Phone Non-Staff, Physician Primary Care Provider Unava ilable Encounter Details Date Type Department Care Team ([facility] st Contact Info) Description 08/19/2001 Outpatient Historical Claud[facility] Swanson, Elias Herrera MD [address] [place] [address] Social History Tobacco Use Types Packs/Day Years Used Date Smoking Tobacco: Never Assessed Comments Unknown Sex and Gender Information Value Date Recorded Sex Assigned at Not on file Legal Sex Female 7:06 AM CAREER INFORMATION SPECIALIST Gender Identity Not on file Sexual Orientation Not on file documented as of this encounter Plan of Treatment Not on file documented as of this encounter Visit Diagnoses Not on filedocumented in this encounter Care Teams Coal Shoveler Relationship Specialty Start Date End Date Non-Staff, Physician NO ADDRESS ON FILE PCP - General 04/15/12 documented as of this encounter
--- OUTSIDE RECORDS SUMMARY | 2025-10-11 19:06 | XMS_ITS | Clinical Summary ---
Author Organization [facility] Address [address] [place] [address] Phone Care Team Providers Care Ticket Puller Name Role Phone Non-Staff, Physician Primary Care [...] tablet Take 25 mcg by mouth daily slab inspector. Active fentaNYL (DURAGESIC) 50 mcg/hr Transdermal patch [...] on file Legal Sex Female 7:06 AM PUBLIC HEALTH EDUCATOR Gender Identity Not on file Sexual Orientation Not on file Occupation Industry Job Start Date Job End Date Not on file Not on file Not on file Not on file Last Filed Vital Signs Vital Sign Reading Time Taken Comments Blood Pressure 140/82 11/17/2012 8:44 AM PUBLIC HEALTH EDUCATOR Pulse 74 11/17/2012 8:44 AM PUBLIC HEALTH EDUCATOR Temperature - - Respiratory Rate - - Oxygen Saturation - - Inhaled Oxygen Concentration - - Weight 66.2 kg (146 lb) 11/17/2012 8:44 AM PUBLIC HEALTH EDUCATOR Height 162.6 cm (5' 4 ) 11/17/2012 8:44 AM PUBLIC HEALTH EDUCATOR Body Mass Index 25.06 11/17/2012 8:44 AM PUBLIC HEALTH EDUCATOR Plan of Treatment Health Maintenance Due Date [...] 2036 [address] [id number] MEDICARE PART A AND B [place]ID [place] Care Teams Ticket Puller Relationship Specialty Start Date End Date Non-Staff, Physician NO ADDRESS ON FILE PCP - General 04/15/12
--- OUTSIDE RECORDS SUMMARY | 2025-10-11 19:06 | XMS_ITS | Encounter Summary ---
Author Organization [facility] Address [address] [place] [address] Care Team Providers Care Chess Instructor Name Role Phone Non-Staff, Physician Primary Care Provider Unava ilable Encounter Details Date Type Department Care Team (Late st Contact Info) Description 06/13/2002 Outpatient Historical [facility] [address] [place] [phone] Martell Baugh MD NO ADDRESS ON FILE MYALGIA AND MYOSITIS NOS (Primary Dx) Social History Tobacco Use Types Packs/Day Years Used Date Smoking Tobacco: Never Assessed Comments Unknown Sex and Gender Information Value Date Recorded Sex Assigned at Not on file Legal Sex Female 7:06 AM METAL NUMERICAL CONTROL PROGRAMMER Gender Identity Not on file Sexual Orientation Not on file documented as of this encounter Plan of Treatment Not on file documented as of this encounter Visit Diagnoses Diagnosis Myalgia and myositis, unspecified- Primary Mylagia and myositis, unspecified documented in this encounter Care Teams Chess Instructor Relationship Specialty Start Date End Date Non-Staff, Physician NO ADDRESS ON FILE PCP - General 04/15/12 documented as of this encounter
--- OUTSIDE RECORDS SUMMARY | 2025-10-11 19:06 | XMS_ITS | Encounter Summary ---
Author Organization [facility] Address [address] [place] [address] Care Team Providers Care Medic Technician Name Role Phone Non-Staff, Physician Primary Care Provider Unava ilable Encounter Details Date Type Department Care Team (Latest Contact Info) Description 09/13/2002 Outpatient [facility] [address] [place] [address] Elias Chow Jr., MD [address] [place] [address] SCREENING MAMM-MAILG NEOPL-OTHER (Primary Dx) Social History Tobacco Use Types Packs/Day Years Used Date Smoking Tobacco: Never Assessed Comments Unknown Sex and Gender Information Value Date Recorded Sex Assigned at Not on file Legal Sex Female 7:06 AM CUT OUT STITCHER Gender Identity Not on file Sexual Orientation Not on file documented as of this encounter Plan of Treatment Not on file documented as of this encounter Visit Diagnoses Diagnosis Other screening mammogram- Primary documented in this encounter Care Teams Medic Technician Relationship Specialty Start Date End Date Non-Staff, Physician NO ADDRESS ON FILE PCP - General 04/15/12 documented as of this encounter
--- OUTSIDE RECORDS SUMMARY | 2025-10-11 19:06 | XMS_ITS | Continuity of Care Document ---
Author Organization [facility] Elvia Humphrey, [facility] ([facility]) Address [address] [place] [address] Assessment No assessment recorded. Plan of Treatment [...] Modified By Organization Details Last Modified Time 10/02/2025 [id number] tx with prednisone 20mg x 5 days. d/c several meds that could be contributing to nausea. [email or web address] Not available 10/02/2025 16:25:49 Reason for Referral None Reported. Problems Name Problem SNOMED Code Status Onset Date Resolution Date Notes Provider Name and Address Organization Details Recorded Time Post-discharg e follow-up 436018297 Active 2024 [facility]01 Metabolic encephalopath y 89463217 Active 2024 [facility] 18:07:02 Chronic obstructive pulmonary disease 46302860 Active 2024 [facility] 18:07:02 Hypertensive heart failure 63881004 Active 2024 [facility] 18:07:03 Fibromyalgia 077246851 [facility] 18:07:06 Hyperlipidemi a 05994462 Active 2024 [facility] 18:07:06 Problem Notes None recorded. Medical Equipment None Reported. Allergies Allergen ID Allergen Name Allergen Category Reaction Reaction Severity Criticality Documentation Date Start Date Code Code System Note Provider Name and Address Organization Details Recorded Time 21802 Iodinated contrast media (substanc e) medicatio n Not available Not available Not available 09/27/20252014 87516 2004 SNOMED Not Available [employer] 12:44:51 00417 Substance with sulfonami de structure and antibacte rial mechanism of action (substanc e) medicatio n Not available Not available Not available 09/27/20252014 11376 8003 SNOMED Not Available [employer] - [employer] 12:44:51 35101 sumatript an succinate medicatio n Not available Not available Not available 09/27/20252014 41477 RxNorm Comme nt: IMITR EX Not Available [employer] 5 12:44:51 46108 sumatript an medicatio n Not available Not available Not available 09/27/2025 16582 RxNorm Not Available [employer] - [employer] 5 12:44:52 81095 iodine medicatio n anaphylax is Not available [facility] 09/27/20252011 5933 RxNorm Not Available [employer] - [employer] 5 12:44:53 22760 atorvasta tin medicatio n Not available Not available Not available 09/27/20252021 38723 RxNorm unrec ogniz ed react ion (text : Muscl e/Leanne nt Pain, code: 85532 8005) (from exter nal sourc e) Not Available [employer] - prod 5 12:44:56 79262 rosuvasta tin medicatio n Not available Not available Not available 09/27/20252021 84581 2 RxNorm unrec ogniz ed react ion (text : Unkno wn, code: 63473 5006) (from ) Not Available [employer] - [employer] - prod 12:44:56 00871 ezetimibe medicatio n Not available Not available Not available 09/27/20252021 98340 8 RxNorm unrec ogniz ed react ion (text : Unkno wn, code: 75800 5006) (from ) Not Available [facility] - [facility] 12:44:56 Medications Name Sig Start Date [...] Address Organization Details Last Updated DateTime 5 07959.1 6 g 83 /min 20 /min 97.4 [degF] 99 % 123/71 mm[Hg] SERGO ALVAREZ [facility], [facility] 5 16:22:22 Social History None recorded. Functional Status None recorded. Mental Status None recorded. Family History Nothing Reported. Medical History No medical history recorded. Gynecological HistoryNo gynecological history recorded. Obstetrics History GPAL:G 0 P 0 0 0 0 Immunizations Vaccine Type Date Status Note Provider Nam e and Address Organization Details Recorded Time pneumococcal polysaccharide PPV23 4 completed Not Available [facility] 10/02/2025 13:54:20 Past Encounters Encounter ID Performer Location Encounter Start Date Encounter Closed Date Diagnosis/Indication Diagnosis SNOMED-CT Code Diagnosis ICD10 Code Diagnosis IMO Codes Diagnosis Note [id number] Babak Duarte DO [facility]) [address] [place] [address] 09/27/2025 12:43:53 10/09/2025 09:06:26 Chronic obstructive pulmonary disease 10326952 J44.9 996664394 Fibromyalgia 281085391 M 79.7 33006 Hypertensi ve heart failure 43872430 I11.0 659353 Hyperlipidemia 73394275 E78.5 76705839 [id number] Babak Duarte DO [facility] ([facility]) [address] [place] [address] 10/02/2025 13:54:06 10/05/2025 17:50:22 Nausea 035567096 R11.0 73348 Acute moe sudative otitis media 57702576 H65.193 76533470 Health Concerns Section Related Observation LastModified by Organization Detai ls LastModified Time None Recorded Concern Status LastModified by Organization Details LastModified Time None Recorded Payers Encounter Date Sequence Insurance Name Policy Number Policy Saba Covered Member ID Saba Member ID Guarantor Name 10/02/2025 1 [employer] (MEDICARE REPLACEMENT/ ADVANTAGE - PPO) Rosenda Ennis [id number] Rosenda Ennis 10/02/2025 2 [place] Rosenda Ennis [id number] Rosenda Ennis Notes Date Note Type Note Provider Name and Address Organization Details Recorded Time 10/02/2025 text/html COPDReported by PatientHPI:For duration, patient reportshas noted for years. For severity, patient reportssevere.ROS as noted in the HPI c/o dizziness to staff. Babak Duarte, [address], [address], [facility] 10/04/2025 17:29:34 OBGyn Episode No OBEpisode recorded.
--- OUTSIDE RECORDS SUMMARY | 2025-10-11 19:06 | XMS_ITS | Continuity of Care Document ---
Author Organization [facility] Elvia Humphrey, [facility] ([facility]) Address [address] [place] [address] Assessment No assessment recorded. Plan of Treatment [...] Modified By Organization Details Last Modified Time 07/26/2025 [id number] Discussed poor kidney function and how certain medications affect it worse than others. Will stat 10 meq potassium daily. Start benadryl bid prn, and tramadol bid prn. Labs on Thursday. [email or web address] Not available 07/26/2025 14:59:49 Reason for Referral None Reported. Problems Name Problem SNOMED Code Status Onset Date Resolution Date Notes Provider Name and Address Organization Details Recorded Time Post-discharg e follow-up 672736265 Active 2024 SERGO [facility] 18:07:01 Metabolic encephalopath y 09600809 Active 2024 SERGO burger [facility] 18:07:02 Chronic obstructive pulmonary disease 28627692 Active 2024 SERGO burger [facility] 5 18:07:02 Hypertensive heart failure 83718528 Active 2024 SERGO burger [facility] 5 18:07:03 Fibromyalgia 391044393 [facility] 5 18:07:06 Hyperlipidemi a 41595392 Active 2024 [facility] SherrieLC[facility]amelia 5 18:07:06 Problem Notes None recorded. Medical Equipment None Reported. Allergies Allergen ID Allergen Name Allergen Category Reaction Reaction Severity Criticality Documentation Date Start Date Code Code System Note Provider Name and Address Organization Details Recorded Time 47282 Iodinated contrast media (substanc e) medicatio n Not available Not available Not available 09/27/20252014 00678 2004 SNOMED Not Available [employer] - prod 5 12:44:51 14802 Substance with sulfonami de structure and antibacte rial mechanism of action (substanc e) medicatio n Not available Not available Not available 09/27/20252014 44859 8003 SNOMED Not Available [employer] - prod 5 12:44:51 87795 sumatript an succinate medicatio n Not available Not available Not available 09/27/20252014 84738 RxNorm Comme nt: IMITR EX Not Available [employer] - prod 5 12:44:51 72144 sumatript an medicatio n Not available Not available Not available 09/27/2025 01218 RxNorm Not Available [employer] - prod 5 12:44:52 53716 iodine medicatio n anaphylax is Not available [facility] 09/27/20252011 5933 RxNorm Not Available [employer] - prod 5 12:44:53 28128 atorvasta tin medicatio n Not available Not available Not available 09/27/20252021 48245 RxNorm unrec ogniz ed react ion (text : Muscl e/Leanne nt Pain, code: 36147 8005) (from exter nal sourc e) Not Available [employer] - External Data Service - prod 12:44:56 78800 rosuvasta tin medicatio n Not available Not available Not available 09/27/20252021 87671 2 RxNorm unrec ogniz ed react ion (text : Unkno wn, code: 90170 5006) (from [facility]) Not Available [facility] External Data Service - [facility] 5 12:44:56 92024 ezetimibe medicatio n Not available Not available Not available 09/27/20252021 32713 8 RxNorm unrec ogniz ed react ion (text : Unkno wn, code: 60912 5006) (from [facility]) Not Available [facility] External Data Service - [facility] 12:44:56 Medications Name Sig Start Date Stop [...] Address Organization Details Last Updated DateTime 5 34898.7 9 g 72 /min 18 /min 96.4 [degF] 99 % 154/98 mm[Hg] SERGO KIM [facility], [facility] 5 14:55:32 Social History None recorded. Functional Status None recorded. Mental Status None recorded. Family History Nothing Reported. Medical History No medical history recorded. Gynecological HistoryNo gynecological history recorded. Obstetrics History GPAL:G 0 P 0 0 0 0 Immunizations Vaccine Type Date Status Note Provider Nam e and Address Organization Details Recorded Time pneumococcal polysaccharide PPV23 4 completed Not Available [employer] 10/02/2025 13:54:20 Past Encounters Encounter ID Performer Location Encounter Start Date Encounter Closed Date Diagnosis/Indication Diagnosis SNOMED-CT Code Diagnosis ICD10 Code Diagnosis IMO Codes Diagnosis Note [id number] Babak Duarte DO [facility] ([facility]) [address] [place] [address] 07/17/2025 15:43:50 07/19/2025 11:23:12 Post-discharge follow-up 771272903 Z09 261657 Metabolic encephalopathy 99319369 G93.41 932561 Chronic ob structive pulmonary disease 35988055 J44.9 777043558 Hypertensi ve heart failure 66081342 I11.0 249135 Fibromyalgia 679796979 M 79.7 63050 Hyperlipidemia 09536152 E78.5 [id number] Babak Duarte DO [facility] ([facility]) [address] [place] [address] 07/26/2025 11:58:37 07/27/2025 14:43:01 Hypertensive heart failure 80219473 I11.0 441344 Chronic ob structive pulmonary disease 57355979 J44.9 279972577 Health Concerns Section Related Observation LastModified by Organization Detai ls LastModified Time None Recorded Concern Status LastModified by Organization Details LastModified Time None Recorded Payers Encounter Date Sequence Insurance Name Policy Number Policy Saba Covered Member ID Saba Member ID Guarantor Name 07/26/2025 1 [employer] (MEDICARE REPLACEMENT/ ADVANTAGE - PPO) Rosenda Cardonaguttenberg [id number] Rosendayon Cardonaguttenberg 07/26/2025 2 [place] Rosenda Cardonaguttenberg [id number] Rosendayon Cardonaguttenberg Notes Date Note Type Note Provider Name and Address Organization Details Recorded Time 07/26/2025 text/html COPDReported by PatientHPI:For duration, patient reportshas noted for years. For severity, patient reportssevere.ROS as noted in the HPI discuss labs and sinus medication. Babak Duarte DO [address] [place] [address], [phone], [facility] 07/26/2025 15:04:12 OBGyn Episode No OBEpisode recorded.
--- OUTSIDE RECORDS SUMMARY | 2025-10-11 19:06 | XMS_ITS | Encounter Summary ---
Author Organization [facility] Address [address] [place] [address] Care Team Providers Care Route Sales Associate Name Role Phone Non-Staff, Physician Primary Care Provider Unava ilable Encounter Details Date Type Department Care Team (Late st Contact Info) Description 01/27/2012 Ancillary Orders [facility] Orthopedics- 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
--- OUTSIDE RECORDS SUMMARY | 2025-10-11 19:06 | XMS_ITS | Encounter Summary ---
Author Organization [facility] Address [address] [place] [address] Care Team Providers Care Orthopedic Shoes Salesperson Name Role Phone Non-Staff, Physician Primary Care Provider Unava ilable Encounter Details Date Type Department Care Team (Late st Contact Info) Description 10/24/2008 Outpatient [facility] [address] [place] [address] Lelia Jacobo MD NO ADDRESS ON FILE Social History Tobacco Use Types Packs/Day Years Used Date Smoking Tobacco: Never Assessed Comments Unknown Sex and Gender Information Value Date Recorded Sex Assigned at Not on file Legal 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
--- OUTSIDE RECORDS SUMMARY | 2025-10-11 19:06 | XMS_ITS | Encounter Summary ---
Author Organization [facility] Address [address] [place] [address] Care Team Providers Care Marketing Clerk Name Role Phone Non-Staff, Physician Primary Care Provider Unava ilable Encounter Details Date Type Department Care Team (Latest Contact Info) Description 08/19/2001 Outpatient Historical [facility] [address] [facility] [address] [place] [address] Ana Smith MD NO ADDRESS ON FILE Other screening mammogram (Primary Dx) Social History Tobacco Use Types Packs/Day Years Used Date Smoking Tobacco: Never Assessed Comments Unknown Sex and Gender Information Value Date Recorded Sex Assigned at Not on file Legal 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
--- OUTSIDE RECORDS SUMMARY | 2025-10-11 19:06 | XMS_ITS | Clinical Summary ---
Author Organization [facility] Address [address] Travis: Epic Prelude ADT [place] [address] Care Team Providers Care Mat Machine Operator Name Role Phone Non-Staff, Physician [...] of application. For more information use the [employer] link. Active Active Problems Problem Noted [...] STL ABSTRACTION Provider, Abstract 07/26/2025 Orders Only [facility] Cancer and Hematology [place] [address] [place] [address] Jennifer Pro FNP Thrombocytopenia (Primary Dx) 07/18/2025 Telephone [facility] Gastroenterology [facility] [address] [place] [address] Griffin San MD Other (Referral/) 07/18/2025 Abstract [facility] [address] [place] [address] Provider, Abstract 07/18/2025 Orders Only [facility] [address] [place] [address] Provider, Abstract 07/17/2025 Abstract [facility] [address] [place] [address] Provider, Abstract 07/17/2025 Orders Only [facility] [address] [place] [address] Provider, Abstract 07/13/2025 11:51 AM CDT Anesthesia Event [facility] Endoscopy [address] [place] [address] Brice Granados II, 07/13/2025 10:00 AM CDT - 07/13/2025 10:20 AM CDT Surgery [facility] Endoscopy [address] [place] [address] Griffin San MD ESOPHAGOGASTRODUODENOSCOPY 07/12/2025 External Device Data STL ABSTRACTION Provider, Abstract 07/08/2025 4:39 PM CDT - 07/15/2025 12:45 PM CDT Hospital Encounter [facility] 7B Medical Surgical [address] [place] [address] Stormy Mittal MD Saeed, Mariam, MD Shah, MD Antoine Leonard Jagdeep S, MD Acute metabolic encephalopathy Discharge Disposition: Shelter Fac(SNF) with Medicare Certification in Anticipation of [...] on file 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 Gender Identity Not on file Sexual Orientation [...] - 10.8 K/uL 07/15/2025 6:31 AM CDT [facility] LABORATORY [facility] RBC 2.74(L) 4.20 - 5.40 M/uL 07/15/2025 6:31 AM CDT [facility] HEMOGLOBIN 8.8(L) 12.0 - 16.0 g/dL 07/15/2025 6:31 AM CDT [facility] HEMATOCRIT 27.3(L) 36.0 - 46.0 % 07/15/2025 6:31 AM CDT [facility] MCV 99.6 84.0 - 103.0 fL 07/15/2025 6:31 AM CDT [facility] MCH 32.1 27.0 - 34.0 pg 07/15/2025 6:31 AM CDT [facility] MCHC 32.2 30.0 - 35.0 g/dL 07/15/2025 6:31 AM [facility] PLATELETS 154 140 - 440 K/uL 07/15/2025 6:31 AM [facility] MPV 11.5 8.9 - 12.8 fL 07/15/2025 6:31 AM [facility] RDW 17.0(H) 11.0 - 14.5 % 07/15/2025 6:31 AM [facility] [employer] [facility] RDW-STDEV 62.1(H) 37.0 - 54.0 fL 07/15/2025 6:31 AM [facility] NEUTROPHILS 57 42 - 75 % 07/15/2025 6:31 AM [facility] [employer] [facility] LYMPHOCYTES 25 24 - 44 % 07/15/2025 6:31 AM [facility] [employer] [facility] MONOCYTES 14(H) 2 - 10 % 07/15/2025 6:31 AM [facility] [employer] [facility] EOSINOPHILS 2 0 - 7 % 07/15/2025 6:31 AM [facility] BASOPHILS 1 0 - 1 % 07/15/2025 6:31 AM [facility] IMMATURE GRANULOCYTES 1 0 - 2 % 07/15/2025 6:31 AM [facility] NEUTROPHIL ABSOLUTE 2.66 2.00 - 8.00 K/uL 07/15/2025 6:31 AM [facility] LYMPHOCYTE ABSOLUTE 1.14(L) 1.20 - 4.00 K/uL 07/15/2025 6:31 AM [facility] MONOCYTE ABSOLUTE 0.64(H) 0.10 - 0.60 K/uL 07/15/2025 6:31 AM [facility] EOSINOPHIL ABSOLUTE 0.11 0.00 - 0.70 K/uL 07/15/2025 6:31 AM [facility] BASOPHILS ABSOLUTE 0.05 0.00 - 0.20 K/uL 07/15/2025 6:31 AM [facility] IMMATURE GRANULOCYTES ABSOLUTE 0.04 0.00 - 0.10 K/uL 07/15/2025 6:31 AM [facility] SMEAR REVIEWED: NA - Not Applicable 07/15/2025 6:31 AM [facility] Blood Venipuncture / Unknown 07/15/2025 5:41 AM CDT 07/15/2025 6:27 AM CDT us Nava Quiros MANAGER TRAINEE HEMATOLOGY ORDERABLES Milvia staton Result [facility] CLIA # [id number] [address] [place] [address] * (ABNORMAL) COMPREHENSIVE METABOLIC PANEL (07/15/2025 5:41 AM CDT) Only the most recent of4 resultswithin the time period is included. SODIUM 137 136 - 145 mmol/L 07/15/2025 7:03 AM [facility] POTASSIUM 4.1 3.5 - 5.1 mmol/L 07/15/2025 7:03 AM [facility] CHLORIDE 102 98 - 107 mmol/L 07/15/2025 7:03 AM [facility] CO2 29 22 - 29 mmol/L 07/15/2025 7:03 AM [facility] CALCIUM 8.9 8.8 - 10.2 mg/dL 07/15/2025 7:03 AM [facility] BUN 28(H) 8 - 23 mg/dL 07/15/2025 7:03 AM [facility] CREATININE 1.34(H) 0.51 - 0.95 mg/dL 07/15/2025 7:03 AM [facility] GLUCOSE 85 74 - 99 mg/dL 07/15/2025 7:03 AM [facility] TOTAL PROTEIN 5.1(L) 6.4 - 8.3 g/dL 07/15/2025 7:03 AM T [facility] ALBUMIN 3.0(L) 3.5 - 5.2 g/dL 07/15/2025 7:03 AM [facility] BILIRUBIN TOTAL 0.4 0.0 - 1.0 mg/dL 07/15/2025 7:03 AM [facility] ALKALINE PHOSPHATASE 45 35 - 104 U/L 07/15/2025 7:03 AM [facility] AST 17 10 - 35 U/L 07/15/2025 7:03 AM [facility] ALT 9 <=35 U/L 07/15/2025 7:03 AM [facility] GFR 44(L) >=60 mL/min/1. 73 sq meter 07/15/2025 7:03 AM [facility] Comment:eGFR calculated with 2020 CKD-EPI equation. Vegetarian diet, extremely high or low muscle mass, and may affect results. Cystatin C with Glomerular Filtration Rate is a suitable alternative for these patients. ANION GAP 6(L) 9 - 20 mmol/L 07/15/2025 7:03 AM [facility] Blood Venipuncture / Unknown 07/15/2025 5:41 AM CDT 07/15/2025 6:27 AM CDT us Nava Quiros MANAGER TRAINEE CHEMISTRY ORDERABLES Final Result [facility] CLIA # [id number] [address] [place] [address] * POC GLUCOSE (07/14/2025 4:48 PM CDT) Only the most recent of12 resultswithin the time period is included. GLUCOSE POC 98 74 - 99 mg/dL 07/14/2025 4:48 PM T [facility] SPECIMEN SOURCE, GLUCOSE POC Capillary 07/14/2025 4:48 PM [facility] Blood, whole 07/14/2025 4:48 PM CDT 07/14/2025 5:25 PM CDT Natanael Schultz MD POINT OF CARE TESTING Final Result [facility] CLIA # [id number] [address] [place] [address] [place] [address] * (ABNORMAL) RENAL FUNCTION PANEL (07/14/2025 2:06 PM CDT) SODIUM 135(L) 136 - 145 mmol/L 07/14/2025 2:48 PM CDT [facility] POTASSIUM 4.6 3.5 - 5.1 mmol/L 07/14/2025 2:48 PM CDT [facility] CHLORIDE 98 98 - 107 mmol/L 07/14/2025 2:48 PM CDT [facility] CO2 29 22 - 29 mmol/L 07/14/2025 2:48 PM CDT [facility] CALCIUM 8.9 8.8 - 10.2 mg/dL 07/14/2025 2:48 PM CDT [facility] BUN 29(H) 8 - 23 mg/dL 07/14/2025 2:48 PM CDT [facility] CREATININE 1.38(H) 0.51 - 0.95 mg/dL 07/14/2025 2:48 PM CDT [facility] GLUCOSE 92 74 - 99 mg/dL 07/14/2025 2:48 PM CDT [facility] ALBUMIN 3.3(L) 3.5 - 5.2 g/dL 07/14/2025 2:48 PM CDT [facility] PHOSPHORUS 3.0 2.5 - 4.5 mg/dL 07/14/2025 2:48 PM CDT [facility] GFR 43(L) >=60 mL/min/1. 73 sq meter 07/14/2025 2:48 PM [facility]T [facility] Comment:eGFR calculated with 2020 CKD-EPI equation. Vegetarian diet, extremely high or low muscle mass, and may affect results. Cystatin C with Glomerular Filtration Rate is a suitable alternative for these patients. ANION GAP 8(L) 9 - 20 mmol/L 07/14/2025 2:48 PM CDT [facility] Blood Venipuncture / Unknown 07/14/2025 2:06 PM CDT 07/14/2025 2:10 PM CDT us Natanael Schultz MD CHEMISTRY ORDERABLES Final R esult [facility] CLIA # [id number] [facility] [address] * UPPER ENDOSCOPY REPORT (07/13/2025 12:04 PM CDT) Narrative Procedure Note Griffin San MD - 07/13/2025 12:04 PM CDT [facility] GI Patient Name: Viola Ennis [...] Withdrawal Time Scope In: Scope Out: [address] [place], [place] Griffin San MD GI PROCEDURE ORDERABLES Final Result * PATHOLOGY (07/13/2025 11:59 AM CDT) CASE REPORT Surgical Pathology Report Case: [id number] Authorizing Provider: Griffin San MD Collected: 07/13/2025 11:59 AM Ordering Location: [facility] Received: 07/14/2025 06:37 AM Endoscopy Pathologist: Susie Powers MD Specimen: Stomach 5 6:43 AM CDT [facility] FINAL DIAGNOSIS A. Stomach, biopsy - Focally active chronic gastritis with associated reactive/regenerative epithelial and stromal changes, consistent with repair - No intestinal metaplasia, dysplasia, or malignancy - Immunohistochemistry for Helicobacter pylori is negative Susie Powers MD [id number] 5 6:43 AM CDT [facility] at 0643 CDT GROSS DESCRIPTION A. Received in a container of formalin labeled [place] -stomach rule out gastritis and H. pylori are two fragments of mucosa, up to 0.3 cm in greatest dimension. The specimen is submitted entirely in A1. Grossed by: Dunia Mcdowell MS, PA ([facility]) 5 6:43 AM CDT [facility] MICROSCOPIC DESCRIPTION Immunohistochemistry for Helicobacter pylori was ordered on block A1 after review of H&E-stained slides based on the presence of inflammatory changes and clinician request to evaluate for infection. 5 6:43 AM CDT [facility] OPERATIVE PROCEDURE 1: ESOPHAGOGASTRODUODENOSCO PY 5 6:43 AM CDT [facility] CLINICAL INFORMATION R/o gastritis vs R/o H Pylori 5 6:43 AM CDT [facility] COMMENT The [employer] voice-activated dictation system may have been used [...] determined by the Diagnostic Immunohistochemistry Laboratory of [facility] in compliance with CLIA'88 regulations. Some of these tests rely on the use of analyte specific reagents and are subject to specific labeling requirements by the FDA. All controls show appropriate reactivity. This testing was developed by the Diagnostic Immunohistochemistry Laboratory of [facility]. It has not been cleared or approved by the FDA. The FDA has determined that such clearance or approval is not necessary. 5 6:43 AM CDT [facility] Tissue ENTIRE STOMACH / Unknown Collection / Unknown 07/13/2025 11:59 AM CDT 07/14/2025 6:37 AM CDT Comment:R/o gastritis vs R/o H Pylori us Griffin San MD PATHOLOGY/CYTOLOGY ORDERABLES Final Result [facility] CLIA # [id number] [address] [place] [id number] * MAGNESIUM LEVEL (07/13/2025 4:27 AM CDT) Only the most recent of2 resultswithin the time period is included. MAGNESIUM 2.2 1.6 - 2.4 mg/dL 07/13/2025 5:27 AM CDT [facility] Blood Venipuncture / Unknown 07/13/2025 4:27 AM CDT 07/13/2025 4:55 AM CDT Natanael Schultz MD CHEMISTRY ORDERABLES Final R esult Performing Organization Address [facility]/ZIP Co de Phone Number [facility] CLIA # [id number] [address] [address] [place] [address] * (ABNORMAL) LACTATE DEHYDROGENASE (07/13/2025 4:27 AM CDT) Only the most recent of2 resultswithin the time period is included. LD (LACTATE DEHYDROGENASE) 351(H) 135 - 214 U/L 07/13/2025 8:05 AM CDT [facility] Blood Venipuncture / Unknown 07/13/2025 4:27 AM CDT 07/13/2025 4:55 AM CDT Dunia Baron DO CHEMISTRY ORDERABLES Fi nal Result Performing Organization Address [facility] Co de Phone Number [facility] CLIA # [id number] [address] [address] * (ABNORMAL) HAPTOGLOBIN (07/12/2025 1:26 PM CDT) HAPTOGLOBIN <10(L) 30 - 200 mg/dL 07/12/2025 2:36 PM CDT [facility] Blood Venipuncture / Unknown 07/12/2025 1:26 PM CDT 07/12/2025 1:39 PM CDT Dunia Baron DO CHEMISTRY ORDERABLES Fi nal Result [facility] [employer] [facility] CLIA # [id number] [address] [address] [place] [address] * (ABNORMAL) PHOSPHORUS (07/12/2025 2:04 AM CDT) PHOSPHORUS 2.4(L) 2.5 - 4.5 mg/dL 07/12/2025 2:59 AM CDT [facility] [employer] [facility] Blood Venipuncture / Unknown 07/12/2025 2:04 AM CDT 07/12/2025 2:27 AM CDT Natanael Schultz MD CHEMISTRY ORDERABLES Final R esult [facility] [employer] [facility] CLIA # [id number] [address] [address] from Last 3 Months Insurance [place] [address] [place] [id number] Advance Directives For more information, please contact: [phone] * Full Code (Latest Code Status on File) Date Activated Date Inactivated Comments 07/10/2025 10:39 AM 07/15/2025 2:55 PM * Default Full Code - Needs Discussion Date Activated Date Inactivated Comments 07/08/2025 4:52 PM 07/10/2025 10:39 AM Care Teams Mat Machine Operator Relationship Specialty Start Date End Date Non-Staff, Physician NO ADDRESS ON FILE PCP - General 04/15/12
--- OUTSIDE RECORDS SUMMARY | 2025-10-11 19:06 | XMS_ITS | Encounter Summary ---
Author Organization [facility] Address 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
--- OUTSIDE RECORDS SUMMARY | 2025-10-11 19:06 | XMS_ITS | Encounter Summary ---
Author Organization [facility] Address [address] [place] [address] Care Team Providers Care Healthcare Economics Consultant Name Role Phone Non-Staff, Physician Primary Care Provider Unava ilable Encounter Details Date Type Department Care Team (Latest Contact Info) Description 03/29/1998 Outpatient Historical [facility] Elias Chow Jr., MD [address] [place] [id number] Symptomatic menopausal or female climacteric states (Primary Dx) Social History Tobacco Use Types Packs/Day Years Used Date Smoking Tobacco: Never Assessed Comments Unknown Sex and Gender Information Value Date Recorded Sex Assigned at Not on file 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
--- OUTSIDE RECORDS SUMMARY | 2025-10-11 19:06 | XMS_ITS | Data Portability ---
Author Organization [facility] Kam, [facility] Address [address] [address] Assessment No assessment recorded. Plan of Treatment [...] By Organization Details Last Modified Time 07/17/2025 [id number] Limited records. Planning for therapy at SNF with goal of returning home. Labs on Thursday. Not available 07/17/2025 18:07:39 07/26/2025 [id number] Discussed poor kidney function and how certain medications affect it worse than others. Will stat 10 meq potassium daily. Start benadryl bid prn, and tramadol bid prn. Labs on Thursday. [email or web address] Not available 07/26/2025 14:59:49 09/27/2025 [id number] Admitted to SNF with inability to care for self at home. Discussed medication changes that could be contributing to upset stomach, but not interested in changes at this time. Schedule labs. [id number] Not available 09/27/2025 14:15:39 10/02/2025 [id number] tx with prednisone 20mg x 5 days. d/c several meds that could be contributing to nausea. [email or web address] Not available 10/02/2025 16:25:49 Reason for Referral None Reported. Problems Name Problem SNOMED Code Status Onset Date Resolution Date Notes Provider Name and Address Organization Details Recorded Time Post-discharg e follow-up 277378795 [facility] 18:07:01 Metabolic encephalopath y 49134427 Active 2024 SERGO burger, [facility] 5 18:07:02 Chronic obstructive pulmonary disease 06726611 Active 2024 SERGO burger, [facility] 5 18:07:02 Hypertensive heart failure 55180034 Active 2024 SERGO burger, [facility] 18:07:03 Fibromyalgia 359093540 [facility] 20[facility] 18:07:06 Hyperlipidemi a 48569229 Active 2024 [facility] 18:07:06 Problem Notes None recorded. Medical Equipment None Reported. Allergies Allergen ID Allergen Name Allergen Category Reaction Reaction Severity Criticality Documentation Date Start Date Code Code System Note Provider Name and Address Organization Details Recorded Time 85795 Iodinated contrast media (substanc e) medicatio n Not available Not available Not available 09/27/20252014 39299 2004 SNOMED Not Available [employer] - prod 12:44:51 42385 Substance with sulfonami de structure and antibacte rial mechanism of action (substanc e) medicatio n Not available Not available Not available 09/27/20252014 82238 8003 SNOMED Not Available [employer] - prod 5 12:44:51 04310 sumatript an succinate medicatio n Not available Not available Not available 09/27/20252014 24908 RxNorm Comme nt: IMITR EX Not Available [employer] - prod 12:44:51 14894 sumatript an medicatio n Not available Not available Not available 09/27/2025 95700 RxNorm Not Available [employer] - External Data [facility] - [facility] 5 12:44:52 65011 iodine medicatio n anaphylax is Not available [facility] 09/27/20252011 5933 RxNorm Not Available [facility] External Data Service - [facility] 5 12:44:53 25042 atorvasta tin medicatio n Not available Not available Not available 09/27/20252021 74836 RxNorm unrec ogniz ed react ion (text : Muscl e/Leanne nt Pain, code: 35418 8005) (from exter nal sourc e) Not Available [employer] - External Data Service - [facility] 5 12:44:56 70791 rosuvasta tin medicatio n Not available Not available Not available 09/27/20252021 27511 2 RxNorm unrec ogniz ed react ion (text : Unkno wn, code: 99149 5006) (from exter nal sourc e) Not Available [facility] External Data Service - [facility] 5 12:44:56 19475 ezetimibe medicatio n Not available Not available Not available 09/27/20252021 15869 8 RxNorm unrec ogniz ed react ion (text : Unkno wn, code: 37199 5006) (from exter nal sourc e) Not Available [facility] External Data Service - [facility] 5 12:44:56 Medications Name Sig Start Date Stop [...] BY MOUTH TWICE DAILY FOR 7 DAYS 09/22 /2025 completed Not Available Not Available [...] Address Organization Details Last Updated DateTime 5 80193.5 3 g 86 /min 18 /min 97.6 [degF] 91 % 132/90 mm[Hg] [facility] 5 18:04:41 Date Recorded Body weight Heart rate Respiratory rate Body temperature Oxygen saturation Systolic And Diastolic Provider Name and Address Organization Details Last Updated DateTime 5 11011.7 9 g 72 /min 18 /min 96.4 [degF] 99 % 154/98 mm[Hg] [facility] 5 14:55:32 Date Recorded Body weight Heart rate Respiratory rate Body temperature Oxygen saturation Systolic And Diastolic Provider Name and Address Organization Details Last Updated DateTime 5 97918.1 6 g 83 /min 20 /min 97.4 [degF] 99 % 158/84 mm[Hg] [facility] 5 14:13:20 Date Recorded Body weight Heart rate Respiratory rate Body temperature Oxygen saturation Systolic And Diastolic Provider Name and Address Organization Details Last Updated DateTime 5 79210.1 6 g 83 /min 20 /min 97.4 [degF] 99 % 123/71 mm[Hg] SERGO ALVAREZ [facility] 5 16:22:22 Social History None recorded. Functional Status None recorded. Mental Status None recorded. Family History Nothing Reported. Medical History No medical history recorded. Gynecological HistoryNo gynecological history recorded. Obstetrics History GPAL:G 0 P 0 0 0 0 Immunizations Vaccine Type Date Status Note Provider Nam e and Address Organization Details Recorded Time pneumococcal polysaccharide PPV23 4 completed Not Available [facility] 10/02/2025 13:54:20 Past Encounters Encounter ID Performer Location Encounter Start Date Encounter Closed Date Diagnosis/Indication Diagnosis SNOMED-CT Code Diagnosis ICD10 Code Diagnosis IMO Codes Diagnosis Note [id number] Babak Duarte DO [facility]) [address] [place] [address] 07/17/2025 15:43:50 07/19/2025 11:23:12 Post-discharge follow-up 690731548 Z09 802319 Metabolic encephalopathy 81728786 G93.41 430713 Chronic ob structive pulmonary disease 85810685 J44.9 181936043 Hypertensi ve heart failure 35509100 I11.0 403867 Fibromyalgia 560458590 M 79.7 37543 Hyperlipidemia 80562080 E78.5 74708818 [id number] Babak Duarte DO [facility]) [address] [place] [address] 07/26/2025 11:58:37 07/27/2025 14:43:01 Hypertensive heart failure 94052226 I11.0 181278 Chronic ob structive pulmonary disease 18042153 J44.9 [id number] Babak Duarte DO [facility]) [address] [place] [address] 09/27/2025 12:43:53 10/09/2025 09:06:26 Chronic obstructive pulmonary disease 00176029 J44.9 630893340 Fibromyalgia 385664490 M 79.7 77955 Hypertensi ve heart failure 52603377 I11.0 890027 Hyperlipidemia 49770134 E78.5 31307910 [id number] Babak Duarte DO [facility] ([facility]) [address] [place] [address] 10/02/2025 13:54:06 10/05/2025 17:50:22 Nausea 198428627 R11.0 61865 Acute moe sudative otitis media 42646927 H65.193 85083540 Health Concerns Section Related Observation LastModified by Organization Detai ls LastModified Time None Recorded Concern Status LastModified by Organization Details LastModified Time None Recorded Advance Directives Directive None Recorded Payers Insurance Date Sequence Insurance Name Policy Number Policy Saba Covered Member ID Saba Member ID Guarantor Name 09/27/2025 [place]ID[place]: [facility] Rosenda Cardonagilby [id number] [facility] 09/28/2025 2 [place] Rosenda [facility] [id number] [facility] 07/17/2025 1 *SELF PAY* Holger vitale [facility] 10/05/2025 1 [employer] (MEDICARE REPLACEMENT/ ADVANTAGE - PPO) Rosenda W [facility] [id number] [facility] Notes Date Note Type Note Provider Name and Address Organization Details Recorded Time 07/17/2025 text/html COPDReported by PatientHPI:For duration, patient reportshas noted for years. For severity, patient reportssevere.ROS as noted in the HPI new admit to snf after hospital stay. Babak Duarte DO [address] [place] [address], [phone], [facility] Elvia Humphrey 07/18/2025 09:00:19 07/26/2025 text/html COPDReported by PatientHPI:For duration, patient reportshas noted for years. For severity, patient reportssevere.ROS as noted in the HPI discuss labs and sinus medication. Babak Duarte DO [address] [place] [address], [phone], [facility], Elvia 07/26/2025 15:04:12 09/27/2025 text/html COPDReported by PatientI:For duration, patient reportshas noted for years. For severity, patient reportssevere.ROS as noted in the HPI new admit to snf, unable to care for self at home. Babak Duarte DO [address] [place] [address], [phone], [facility], Elvia 10/06/2025 17:21:42 10/02/2025 text/html COPDReported by PatientHPI:For duration, patient reportshas noted for years. For severity, patient reportssevere.ROS as noted in the HPI c/o dizziness to staff. Babak Duarte DO [address] [place] [address], [phone], [facility] 10/04/2025 17:29:34 OBGyn Episode No OBEpisode recorded.
--- OUTSIDE RECORDS SUMMARY | 2025-10-11 19:06 | XMS_ITS | Continuity of Care Document ---
Author Organization [facility] Elvia Humphrey, [facility] ([facility]) Address [address] [facility] [facility] [place] [address] Assessment No assessment recorded. Plan of Treatment [...] Modified By Organization Details Last Modified Time 09/27/2025 [id number] Admitted to SNF with inability to care for self at home. Discussed medication changes that could be contributing to upset stomach, but not interested in changes at this time. Schedule labs. Not available 09/27/2025 14:15:39 Reason for Referral None Reported. Problems Name Problem SNOMED Code Status Onset Date Resolution Date Notes Provider Name and Address Organization Details Recorded Time Post-discharg e follow-up 095066960 [facility]24 [facility] 18:07:01 Metabolic encephalopath y 31070008 Active 2024 [facility] 5 18:07:02 Chronic obstructive pulmonary disease 35473969 Active 2024 [facility] 5 18:07:02 Hypertensive heart failure 76885421 Active 2024 [facility] 5 18:07:03 Fibromyalgia 189009542 [facility] 18:07:06 Hyperlipidemi a 34697907 Active 2024 [facility] 5 18:07:06 Problem Notes None recorded. Medical Equipment None Reported. Allergies Allergen ID Allergen Name Allergen Category Reaction Reaction Severity Criticality Documentation Date Start Date Code Code System Note Provider Name and Address Organization Details Recorded Time 76898 Iodinated contrast media (substanc e) medicatio n Not available Not available Not available 09/27/20252014 82374 2004 SNOMED Not Available [employer] - prod 12:44:51 81161 Substance with sulfonami de structure and antibacte rial mechanism of action (substanc e) medicatio n Not available Not available Not available 09/27/20252014 84876 8003 SNOMED Not Available [employer] - prod 12:44:51 20690 sumatript an succinate medicatio n Not available Not available Not available 09/27/20252014 06539 RxNorm Comme nt: IMITR EX Not Available [employer] - prod 5 12:44:51 83130 sumatript an medicatio n Not available Not available Not available 09/27/2025 27836 RxNorm Not Available [employer] - prod 5 12:44:52 89151 iodine medicatio n anaphylax is Not available [facility] 09/27/20252011 5933 RxNorm Not Available [employer] - prod 5 12:44:53 23934 atorvasta tin medicatio n Not available Not available Not available 09/27/20252021 85697 RxNorm unrec ogniz ed react ion (text : Muscl e/Leanne nt Pain, code: 18286 8005) (from exter nal sourc e) Not Available [employer] - External Data Service - [facility] 12:44:56 60621 rosuvasta tin medicatio n Not available Not available Not available 09/27/20252021 57111 2 RxNorm unrec ogniz ed react ion (text : Unkno wn, code: 06478 5006) (from [facility]) Not Available [facility] External Data Service - [facility] 12:44:56 79387 ezetimibe medicatio n Not available Not available Not available 09/27/20252021 86041 8 RxNorm unrec ogniz ed react ion (text : Unkno wn, code: 87889 5006) (from [facility]) Not Available [facility] External Data Service - [facility] 12:44:56 Medications Name Sig Start Date Stop [...] Address Organization Details Last Updated DateTime 5 64703.1 6 g 83 /min 20 /min 97.4 [degF] 99 % 158/84 mm[Hg] [facility] 5 14:13:20 Date Recorded Body weight Heart rate Respiratory rate Body temperature Oxygen saturation Systolic And Diastolic Provider Name and Address Organization Details Last Updated DateTime 5 66307.1 6 g 83 /min 20 /min 97.4 [degF] 99 % 123/71 mm[Hg] [facility] 5 16:22:22 Social History None recorded. Functional [...] ICD10 Code Diagnosis IMO Codes Diagnosis Note [id number] Babak Duarte DO [facility] ([facility]) [address] [place] [address] 09/27/2025 12:43:53 10/09/2025 09:06:26 Chronic obstructive pulmonary disease 18834809 J44.9 281934852 Fibromyalgia 888856030 M 79.7 09172 Hypertensi ve heart failure 56876519 I11.0 214336 Hyperlipidemia 45750169 E78.5 18075020 Health Concerns Section Related Observation LastModified by Organization Detai ls LastModified Time None Recorded Concern Status LastModified by Organization Details LastModified Time None Recorded Payers Encounter Date Sequence Insurance Name Policy Number Policy Saba Covered Member ID Saba Member ID Guarantor Name 09/27/2025 1 [employer] (MEDICARE REPLACEMENT/ ADVANTAGE - PPO) Rosenda Ennis [id number] Rosenda Ennis 09/27/2025 2 [place] Rosenda Ennis [id number] [facility] Notes Date Note Type Note Provider Name and Address Organization Details Recorded Time 09/27/2025 text/html COPDReported by PatientHPI:For duration, patient reportshas noted for years. For severity, patient reportssevere.ROS as noted in the HPI new admit to snf, unable to care for self at home. Babak Daurte DO [address] [place] [address], [phone], [facility] 10/06/2025 17:21:42 10/02/2025 text/html COPDReported by PatientHPI:For duration, patient reportshas noted for years. For severity, patient reportssevere.ROS as noted in the HPI c/o dizziness to staff. Babak Duarte DO [address] [place] [address], [phone], [facility] 10/04/2025 17:29:34 OBGyn Episode No OBEpisode recorded.
[2025-10-11] MEDS: levETIRAcetam 1,000 MG/100 ML PREMIX 400 MG IV (19:26)
--- NOTE | 2025-10-11 19:44 | ECG_ITS ---
[facility] 2025-[facility]11 Pat Name: Viola Ennis Department: Room: 263 Gender: Female Noc Analyst: : 1960 Requested By: Juancarlos Herrera Order Number: [id number] Reading MD: Carrie Tesfaye M.D. Measurements Intervals Lucan Rate: 79 P: 57 WI: 141 QRS: -23 QRSD: 97 T: 23 QT: 414 QTc: 476 Interpretive Statements SINUS RHYTHM INFERIOR MYOCARDIAL INFARCTION , PROBABLY OLD [40+ ms Q WAVE AND/OR ST/T ABNORMALITY IN II/aVF] ANTEROLATERAL MYOCARDIAL INFARCTION , OF INDETERMINATE AGE [40+ ms Q WAVE IN I/aVL/V3-V6] Compared to ECG 10/11/2025 14:17:23 Myocardial infarct finding now present Electronically Signed On 10-11-2025 21:41:13 CORPORATE DEVELOPMENT ASSOCIATE by Carrie Tesfaye M.D. [email or web address]
[2025-10-11 20:04] LABS: Vitamin B12 267 pg/mL (232-1245)
[2025-10-12] VITALS (10 sets, daily range): BP systolic 146–179; BP diastolic 86–94; PULSE 64–77; RESP 14–18; TEMP 36.6–37; O2SAT 91–95; BMI 17.0
[2025-10-12 06:00] LABS: Hematocrit 40.7 % (36-47); Hemoglobin 13.40 g/dL (11.27-16.99); Mean Corpuscular HGB Conc 32.9 g/dL (30-55); Mean Corpuscular Hemoglobin 32.3 pg (27-33); Mean Corpuscular Volume 98.1 fl (85-98); Nucleated Red Blood Cells % 0 %; Platelet Count 159 10^3/cmm (157-399); Red Blood Count 4.15 10^6/uL (3.85-5.65); White Blood Count 6.05 10^3/uL (3.29-11.43)
[2025-10-12 06:20] LABS: Alanine Aminotransferase 13 U/L (0-33); Albumin Level 3.3 g/dL (3.5-5.2); Alkaline Phosphatase 39 U/L (35-105); Aspartate Amino Transferase 25 U/L (0-32); Blood Urea Nitrogen 25 mg/dL (8-23); Calcium 8.1 mg/dL (8.5-10.5); Carbon Dioxide 22 mmol/L (22-29); Chloride 104 mmol/L (98-107); Globulin 2.1 g/dL (1.3-4.6); Glucose 75 mg/dL (65-115); Magnesium 2.1 mg/dL (1.7-2.3); Osmolality Calculated 289 mOsm/kg (285-295); Sodium 138 mmol/L (136-145); Total Protein 5.4 g/dL (6.6-8.7)
[2025-10-12 06:25] LABS: Anion Gap 16.2 (5-19); Potassium 4.2 mmol/L (3.5-5.1)
[2025-10-12] MEDS: pantoprazole 40 mg SDV IVP (07:10)
--- NOTE | 2025-10-12 08:25 | PC.PHAR ---
Pt no longer at [facility], she lives with family now.
--- NOTE | 2025-10-12 09:39 | PC.CHAP ---
Pastoral Care Encounter/Spiritual Assessment Type of Contact [] Declined pattern assembler visit [] Patient/Family/Request visit [] Outpatient visit [] Follow-up visit [] Physician referral [] Code/Alert [x] Routine visit [] Staff referral [] Actively dying [] Patient sleeping [x] Family support [] [] Out of room [] Palliative care [] [] Receiving care in room [] Pre-surgical visit [] Trauma [] Long length of stay [] ICU visit [] Other: Relational/Emotional Strength [x] Patient feels connected with others/family/visitors/staff [] Distress [] Loneliness/isolation [] Abandonment Spirituality of Patient [x] Person of [place] [] Attends Mosque of their [place] [x] Believes in Prayer [] Reads Bible or Yazidism materials [] There are Spiritual issues to be addressed Ultrasound Supervisor Interventions [x] Prayer [x] Active listening [] Non-anxious presence [x] Spiritual/emotional support [] Crisis/trauma care [] Spiritual counseling [] Bereavement support [] Provided bereavement packet [] Provided Bible/devotional materials [] Provided toy/stuffed animal, coloring book to patient or family member [] Provided Communion [] Anointing/Roberta [] Salvation [x] Completed spiritual assessment [] Other: Impact on Illness or Injury [] Angry [] Fearful [] Anxious [] Often cries [] Exhaustion [] Unable to work [] Unable to attend adventism [] Unable to walk/stand [] Unable to read [] Unable to drive [] Unable to eat/drink [] Unable to sleep [] Unable to be with family [] Patient intubated [] Other: Summary Time spent with patient 5 min
[2025-10-12 11:01] LABS: Bacillus cereus group Not Detected (NOT DETECT); Bacillus subtillis group Not Detected (NOT DETECT); Corynebacterium Not Detected (NOT DETECT); Cutibacterium acnes (P.acnes) Not Detected (NOT DETECT); Enterococcus faecalis Not Detected (NOT DETECT); Enterococcus faecium Not Detected (NOT DETECT); Listeria Not Detected (NOT DETECT); Micrococcus Not Detected (NOT DETECT); Pan Candida Not Detected (NOT DETECT); Pan Gram-Negative Not Detected (NOT DETECT); Staphylococcus epidermidis Detected (NOT DETECT); Staphylococcus lugdunensis Not Detected (NOT DETECT); Staphylococcus species Detected (NOT DETECT); Streptococcus anginosus group Not Detected (NOT DETECT); Streptococcus pyogenes Not Detected (NOT DETECT); Streptococcus species Not Detected (NOT DETECT); mecA Detected (NOT DETECT); mecC Not Detected (NOT DETECT)
[2025-10-12] MEDS: levETIRAcetam 1,000 MG/100 ML PREMIX 400 MG IV ×2 (12:00→22:07)
--- NOTE | 2025-10-12 14:32 | P.PCN_ITS ---
Documented by User: Ivania Anriver 10/12/25 14:33 EEG Routine Details of Procedure EEG Routine 90747- awake & drowsy: 18698 Documented by User: Gloria Mei MD 10/12/25 17:47 Procedure/Consent Procedure Narrative: ORDERING PHYSICIAN: Dr. Mei. REASON FOR STUDY: Bizarre repetitive behavior suggesting seizure. STUDY: This was a 21 channel digital electroencephalogram performed at the bedside urgently using the 10-20 international system of electrode placement. This study was non-sleep deprived and the patient was awake, and drowsy. FINDINGS: The waking background was characterized by low voltage 8 Hz posterior alpha intermixed with 50% theta and overlying fast activity, symmetric. Frontal intermittent rhythmic delta activity (FIRDA) was seen with shifting asymmetry. The patient appeared to be drowsy at times with increased diffuse slowing and overlying fast activity. Waxing and waning of the diffuse and bifrontal slowing was seen with intermittent arousal and return of the alpha background.The patient was somewhat oriented and able to tell the home service technician that she is in the hospital. No specific behavioral changes were seen to suggest seizures. IMPRESSION: Mildly abnormal EEG due to intermittent slowing with both FIRDA and diffuse slowing without any behavioral equivalent to suggest seizures. This could be consistent with a deep focus of seizure activity but there was no evidence of epilepsy partialis continua, a as intermittent return of waking background was seen. Duration of EE.8 minutes
--- NOTE | 2025-10-12 16:21 | P.PN_ITS ---
Subjective 2 Subjective: Patient was seen in the morning, he was alert but she was confused that what she is doing in the hospital and why she is here for? Upon further discussion and explaining that she is here for altered mentation and some weakness, she was still staring and was not grasping or perceiving the information. When I spoke to her that she is being followed by the neurologist Dr. Mei, the patient was not convinced and saying there is no use of anything and then was still confused and staring while giving information about her condition without any adequate verbal interaction Vitals/I&O/Wt Last Vital Signs Temp 98.6 F 10/12/25 11:17 Pulse 76 10/12/25 11:17 Resp 15 10/12/25 11:17 BP 177/91 10/12/25 11:17 Pulse Ox 94 10/12/25 11:17 O2 Del Method Nasal Cannula 10/12/25 11:17 O2 Flow Rate 1 10/12/25 04:00 10/12/25 10/12/25 10/12/25 06:59 14:59 22:59 Intake Total 828.333 / 794.015 1267 / 1100 Output Total 650 / 2450 Balance 178.333 / -4148.569 9040 / 1100 Weight last 48 hrs Weight 52.299 kg Weight 63.503 kg Physical Exam 2 Narrative: General: Alert and but not oriented to place or time, only on 1 to 2 L nasal cannula oxygen supplementation, able to speak in full sentences, looks malnourished and physically deconditioned HEENT: Normocephalic, atraumatic, grossly unremarkable exam Cardio: normal rate rhythm, normal S1-S2 without any murmurs, rubs, or gallops and JVD normal Respiratory: normal vascular breathing on auscultation without any wheezes, stridor, rhonchi GI: Abdomen soft, nontender, nondistended, normoactive bowel sounds present all 4 quadrants, Neuro: The patient looks physically deconditioned however able to move all extremities no sensory or gross motor deficit, gait and balance unable to assess if the patient is unable to hold her weight or balance Behavior: Appropriate, Extremities: Adequate palpable pulses, no edema or cyanosis observed. Urinary Catheter Management: Zimmerman: Cath Placed During This Visit: yes Reason for Continuing Indwelling Catheter: Accurate Measurement of Urinary Output in Critically Ill Patients Urinary Catheter Date of Insertion: 10/11/25 Urinary Catheter Time of Insertion: 14:00 Data 10/12/25 05:12 10/12/25 05:12 Micro: Microbiology 10/11/25 12:50 Blood Culture - Preliminary Blood NEGATIVE TO DATE 10/11/25 12:56 Blood Culture - Preliminary Blood Staphylococcus epidermidis A&P Assessment and plan 1. Focal onset cognitive epileptic seizure: Patient has been reviewed by the neurologist, and I have personally discussed the case with Dr. Mei who mentioned that the patient was previously admitted around the time of June 2025 and there was suspected high likelihood of seizures and plan of Keppra was there however the patient was transferred to another facility Patient has this stereotypical episodes of seizures therefore Keppra has been started Continue Keppra 1 g twice daily as per neurology plan The patient current presentation does not coincide with TIA or stroke therefore TIA or stroke has been ruled out based on diagnostic workup as per discussion with the neurology Monitor neurochecks If there is any focal neurological deficit then consider repeat CT head and neurology recommendation EEG showed bizarre repetitive behavior suggesting seizures, refer to the report and provider notes of Dr. Mei for full study details Prolactin levels sent and to follow UTOX positive for marijuana Blood cultures 1 bottle showed Staphylococcus epidermidis possible contamination, to follow clinical signs and symptoms which are not suggestive of infection. Continue to monitor vitals Telemetry Neurology referral at the time of discharge 2. Encephalopathy, unspecified type: Patient presented with altered mentation and as per the family no normal was on 10/10/2025 around [address] was unremarkable for any acute insult 3. History of anoxic brain injury: Currently stable, having altered mentation however patient is alert Neurochecks every shift Based on the patient previous presentation as per retrospective notes there might be a possibility of stroke however it was more of his seizures affect, considering the benefit of the patient to start the patient on aspirin since she is not on aspirin. Fall precautions OT PT evaluation 4. CHF (congestive heart failure), NYHA class III: The patient is documented to have congestive heart failure however I did not find any echo, considering patient previous history of possible TIA or stroke and current presentation of seizures Echo to have a baseline and to complete the workup Carotid ultrasound Lipid panel and HbA1c 5. Coronary artery disease involving [place] coronary artery of [place] heart without angina pectoris: As mentioned above 6. Mixed hyperlipidemia: Patient has HMG Co. a reductase inhibitor therefore statins are contraindicated Continue fenofibrate Lipid panel reviewed 7. Gastric reflux: continue PPI daily 8. Neuropathic pain of both legs: Gabapentin 400 mg 3 times daily to continue 9. COPD (chronic obstructive pulmonary disease): Continue home medication glycopyrrolate 1 mg p.o. 3 times daily DuoNebs as needed for shortness of breath Monitor pulse ox 10. Cigarette smoker: Patient currently not having any urges or cravings Continue to monitor If the patient requires, to apply nicotine patch or nicotine alternatives 11. Hypothyroidism: Continue home dose of levothyroxine 12. Essential (primary) hypertension: Continue home dose of carvedilol 6.25 mg twice daily and losartan 25 mg daily Monitor blood pressure 13. Anxiety, generalized: Continue home dose of paroxetine 30 mg daily Plan: VTE: Enoxaparin 40 mg subcut PDMP PDMP Reviewed: Not Reviewed Attestations 2 Medical Necessity Statement*: Patient will stay overnight requiring OT PT recommendations and further stabilization since she has been started on antiseizure medications and to follow medication effect Time Spent in Patient Care: 16 - 35 minutes (>than 50% of time sp ent in counselling and/or direct pt care on unit) . Other Attestations: I was unable to discuss patient current critical condition since the patient family or next of kin or guardian is not available around to discuss. The patient does not seem to be in orientation to time and person therefore her condition continues to be discussed with the next of kin or the family. To try again with the family tomorrow for further discussion. The care has been delivered in the best interest of the patient based on the patient current CODE STATUS. I have reviewed all the images/labs/investigations independently. Management as per internal based on the recommendation and guidelines and patient's current clinical condition. Coding Level of Care Code Acute Code for g Fwd Diagnoses Focal onset cognitive epileptic seizure G40.209 Encephalopathy, unspecified type G93.40 Encephalopathy type: unspecified encephalopathy History of anoxic brain injury Z86.69 CHF (congestive heart failure), NYHA class III I50.9 Congestive heart failure chronicity: chronic Coronary artery disease involving [place] coronary artery of [place] heart without angina pectoris I25.10 Associated angina: without angina Coronary Disease-Associated Artery/Lesion type: [place] artery [place] vs. transplanted heart: [place] heart Mixed hyperlipidemia E78.2 Gastric reflux K21.9 Neuropathic pain of both legs G57.93 COPD (chronic obstructive pulmonary disease) J44.9 Cigarette smoker F17.210 Hypothyroidism E03.9 Essential (primary) hypertension I10 Anxiety, generalized F41.1
--- NOTE | 2025-10-12 18:26 | USCV_ITS ---
Viola Ennis Age: 65 Gender: F : 1960 Exam Date: 10/12/2025 23:44 Ordering Phys: Brenton Garcia MD Technologist: SERGIO Exam Location: [facility] [place] Indication: Stroke workup, History of prior CVA, COPD, CHF, CAD, HLD, Risk Factors: Stroke workup, History of prior CVA, COPD, CHF, CAD, HLD, Previous Vascular Surgery: unknown Right Brachial BP: 177 / 91 Left Brachial BP: / Right Left Velocity (cm/s) Spectral Plaque Velocity (cm/s) Spectral Plaque Syst/Diast Broadening Syst/Diast Broadening 71.10/ 16.70 None None Prox CCA 92.40 / 14.70 None None 85.40/ 16.70 Min Homo Mid CCA 62.90 / 15.60 Min Homo 73.60/ 18.00 Min Homo Distal CCA 64.20 / 16.60 Min Hetro 66.90/ 15.00 Min Hetro Prox ICA 58.90 / 14.10 Min Hetro 46.70/ 21.40 Min Homo Mid ICA 69.40 / 24.50 Min Homo 84.60/ 23.90 Min Hetro Distal ICA 50.00 / 13.00 Min Hetro 99.70 Min Hetro ECA 91.10 Min Hetro 1.10 ICA/CCA 1.10 Antegrade Vertebral Antegrade 40.30/ 8.70 cm/s 55.00/ 8.60 cm/s Tri Subclavian Tri 103.8 101.3 0 0 CONCLUSIONS Right ICA stenosis <50%. Mild atheromatous plaque right carotid bulb/ICA. Left ICA stenosis <50%. Mild atheromatous plaque left carotid bulb/ICA. Normal antegrade Doppler flow noted in the right vertebral artery. Normal antegrade Doppler flow noted in the left vertebral artery. Miah Jones MD (Electronically Signed) Final Date: 13 October 2025 09:59 S
[2025-10-12 19:28] LABS: Cholesterol 142 mg/dL (0-200); Estmated Average Glucose 97; HDL Cholesterol 33 mg/dL (60-100); Hemoglobin A1C 5.0 % (4.0-6.0); Triglycerides 148 mg/dL (0-150)
[2025-10-12] MEDS: dextrose 5%-sod chloride 0.9% 1,000 ML 100 ML IV (22:00)
[2025-10-13] VITALS (10 sets, daily range): BP systolic 150–175; BP diastolic 78–99; PULSE 64–87; RESP 14–16; TEMP 36.7–37.1; O2SAT 92–96; BMI 17.7
--- NOTE | 2025-10-13 01:17 | PC.NURSE ---
01:15 pt asked for pain med; Tylenol 650 mg adm, pt tends to refused taking med. if you give pt the spoon with crushed tylenol , she will take me. she barely opens her mouth , took 4 small bites. pt was joking x1 and said i was just joking last night , pt did not even talk. pt more awake, alert and talking some.
[2025-10-13] MEDS: pantoprazole 40 mg SDV IVP (04:51)
[2025-10-13] MEDS: LOSARTAN 25 MG TABLET PO (04:54)
[2025-10-13 05:29] LABS: Hematocrit 34.8 % (36-47); Hemoglobin 11.20 g/dL (11.27-16.99); Mean Corpuscular HGB Conc 32.2 g/dL (30-55); Mean Corpuscular Hemoglobin 31.4 pg (27-33); Mean Corpuscular Volume 97.5 fl (85-98); Nucleated Red Blood Cells % 0 %; Platelet Count 121 10^3/cmm (157-399); Red Blood Count 3.57 10^6/uL (3.85-5.65); White Blood Count 4.41 10^3/uL (3.29-11.43)
[2025-10-13 05:52] LABS: Alanine Aminotransferase 11 U/L (0-33); Albumin Level 3.0 g/dL (3.5-5.2); Alkaline Phosphatase 34 U/L (35-105); Anion Gap 11.5 (5-19); Aspartate Amino Transferase 22 U/L (0-32); Blood Urea Nitrogen 19 mg/dL (8-23); Calcium 7.9 mg/dL (8.5-10.5); Carbon Dioxide 25 mmol/L (22-29); Chloride 104 mmol/L (98-107); Globulin 2.0 g/dL (1.3-4.6); Glucose 97 mg/dL (65-115); Magnesium 2.0 mg/dL (1.7-2.3); Osmolality Calculated 284 mOsm/kg (285-295); Potassium 4.5 mmol/L (3.5-5.1); Sodium 136 mmol/L (136-145); Total Protein 5.0 g/dL (6.6-8.7)
[2025-10-13] MEDS: dextrose 5%-sod chloride 0.9% 1,000 ML 100 ML IV ×2 (07:15→15:16)
--- NOTE | 2025-10-13 08:57 | ECG_ITS ---
[facility] Test Date: 2025-10-13 Pat Name: Viola Ennis Department: Room: 263 Gender: Female Heater Tender: : 1960 Requested By: Brenton Garcia Order Number: [id number] Reading MD: GIULIANA MCCORD Measurements Intervals [place] Rate: 72 P: 66 NC: 144 QRS: -19 QRSD: 71 T: 14 QT: 394 QTc: 432 Interpretive Statements SINUS RHYTHM Compared to ECG 10/11/2025 19:52:54 Myocardial infarct finding no longer present Electronically Signed On 10-17-2025 12:12:17 ADVERTISING OPERATIONS COORDINATOR by GIULIANA MCCORD [id number]
[2025-10-13] MEDS: levETIRAcetam 1,000 MG/100 ML PREMIX 400 MG IV ×2 (09:29→21:08)
--- NOTE | 2025-10-13 09:44 | XR_ITS ---
WS: [id number] Portable AP upright chest, 10/13/2025 Clinical Data: shortness of breath Comparison: Portable chest, 10/11/2025 Findings: No nodules, masses or effusions are seen. The heart is normal. The pulmonary vascularity is not increased. No pneumonia or pneumothorax is seen. The posterior thoracolumbar fusion remains the same. There is a dextroscoliosis of the thoracic spine. Monitor leads are on the chest wall. The aortic arch shows tortuosity. XR/XR chest 1V portable 90010 Impression: Atherosclerosis.
[2025-10-13 09:51] LABS: Troponin(5th) Baseline 27 ng/L (0-10)
--- NOTE | 2025-10-13 09:58 | ECG_ITS ---
[facility] Test Date: 2025-10-13 Pat Name: Viola Ennis Department: Room: 263 Gender: Female Field Technical Support Consultant: : 1960 Requested By: Brenton Garcia Order Number: [id number] Reading MD: GIULIANA MCCORD Measurements Intervals [place] Rate: 71 P: 40 CA: 134 QRS: -14 QRSD: 75 T: 26 QT: 397 QTc: 432 Interpretive Statements SINUS RHYTHM Compared to ECG 10/13/2025 09:27:05 No significant changes Electronically Signed On 10-18-2025 21:02:09 JOINT FINISHER by GIULIANA MCCORD [id number]
--- NOTE | 2025-10-13 11:51 | PC.SOCIAL ---
IMM update pg 2 of IMM Updated and reviewed w/ patient. Copy provided and copy dated, initialed and placed in chart.
[2025-10-13 14:13] LABS: Coronavirus 229E,HKU1,NL63,OC4 Not Detected (NOT DETECT); Parainfluenza Virus Type 1 Not Detected (NOT DETECT); Parainfluenza Virus Type 2 Not Detected (NOT DETECT); Parainfluenza Virus Type 3 Not Detected (NOT DETECT); Parainfluenza Virus Type 4 Not Detected (NOT DETECT)
[2025-10-13 14:26] LABS: SARS-COV-2 Detected (NOT DETECT)
--- NOTE | 2025-10-13 15:13 | ECG_ITS ---
[facility] Test Date: 2025-10-13 Pat Name: Viola Ennis Department: Room: 263 Gender: Female Accounting/Finance Tutor: : 1960 Requested By: Brenton Garcia Order Number: [id number] Reading MD: GIULIANA MCCORD Measurements Intervals [place] Rate: 87 P: 53 IA: 148 QRS: -19 QRSD: 73 T: 37 QT: 355 QTc: 429 Interpretive Statements SINUS RHYTHM WITH SINUS ARRHYTHMIA Compared to ECG 10/13/2025 10:09:08 No significant changes Electronically Signed On 10-18-2025 20:54:12 COMPLAINT MANAGER by GIULIANA MCCORD [id number]
[2025-10-13 16:45] LABS: Troponin 5 6HR 25.89 ng/L (0-10); Troponin 5 6HR Delta -1.11 ng/L (0-12)
--- NOTE | 2025-10-13 18:02 | P.PN_ITS ---
Subjective 2 Subjective: Patient was seen in the morning Today the patient was more awake and was interactive. She was complaining of mild chest pain later on however EKG done and tropes were unremarkable. Further the patient was kind of anxious staying alone in the room. She was swabbed and found to have COVID-19 positive. However there is no symptoms or shortness of breath and the treatment is given based on the indication of her clinical comorbidities. Vitals/I&O/Wt Last Vital Signs Temp 98.6 F 10/13/25 16:00 Pulse 83 10/13/25 16:00 Resp 15 10/13/25 16:00 BP 175/93 10/13/25 16:00 Pulse Ox 93 10/13/25 16:00 O2 Del Method Room Air 10/13/25 16:00 O2 Flow Rate 1 10/13/25 09:17 10/13/25 10/13/25 10/13/25 06:59 14:59 22:59 Intake Total 1200 / 2400 1145 / 1145 921.667 / 2066.667 Output Total 300 / 300 Balance 900 / 2100 1145 / 1145 921.667 / 2066.667 Weight last 48 hrs Weight 54.5 kg Weight 52.299 kg Physical Exam 2 Narrative: General: Alert oriented to person and place but not to time, only on 1 to 2 L nasal cannula oxygen supplementation, able to speak in full sentences, looks malnourished and physically deconditioned HEENT: Normocephalic, atraumatic, grossly unremarkable exam Cardio: normal rate rhythm, normal S1-S2 without any murmurs, rubs, or gallops and JVD normal Respiratory: normal vascular breathing on auscultation without any wheezes, stridor, rhonchi GI: Abdomen soft, nontender, nondistended, normoactive bowel sounds present all 4 quadrants, Neuro: The patient looks physically deconditioned however able to move all extremities no sensory or gross motor deficit, gait and balance unable to assess if the patient is unable to hold her weight or balance Behavior: Appropriate, Extremities: Adequate palpable pulses, no edema or cyanosis observed. Urinary Catheter Management: Zimmerman: Cath Placed During This Visit: yes Reason for Continuing Indwelling Catheter: Acute Urinary Retention or Obstruction Urinary Catheter Date of Insertion: 10/11/25 Urinary Catheter Time of Insertion: 14:00 Data 10/13/25 05:06 10/13/25 05:06 Micro: Microbiology 10/11/25 12:50 Blood Culture - Preliminary Blood NEGATIVE TO DATE A&P Assessment and plan 1. Focal onset cognitive epileptic seizure: Patient has been reviewed by the neurologist, and I have personally discussed the case with Dr. Mei who mentioned that the patient was previously admitted around the time of June 2025 and there was suspected high likelihood of seizures and plan of Keppra was there however the patient was transferred to another facility. Continue Keppra 1 g twice daily as per neurology plan The patient current presentation does not coincide with TIA or stroke therefore TIA or stroke has been ruled out based on diagnostic workup as per discussion with the neurology EEG showed bizarre repetitive behavior suggesting seizures, refer to the report and provider notes of Dr. Mei for full study details Prolactin levels were not raised and UTOX positive for marijuana Blood cultures 1 bottle showed Staphylococcus epidermidis possible contamination, there are no clinical signs and symptoms of infection. Therefore no indication for antibiotics in her case. 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 Encephalopathy, unspecified type: Patient presented with altered mentation and as per the family no normal was on 10/10/2025 around [address] was unremarkable for any acute insult High likelihood of seizures 1 g Keppra twice daily Neuro referral at the time of discharge 3. COVID-19: Patient found to have COVID-19 positive however no symptoms of active shortness of breath, or any flulike symptoms. Based on patient comorbidities, to start remdesivir according to COVID-19 protocol Airborne and contact precautions to be applied Monitor pulse ox and rest of the hemodynamics 4. History of anoxic brain injury: Currently stable, having altered mentation however patient is alert Neurochecks every shift Based on the patient previous presentation as per retrospective notes there might be a possibility of stroke however it was more of his seizures affect, considering the benefit of the patient to start the patient on aspirin since she is not on aspirin. Fall precautions OT PT evaluation 5. CHF (congestive heart failure), NYHA class III: The patient is documented to have congestive heart failure however I did not find any echo, considering patient previous history of possible TIA or stroke and current presentation of seizures Echo did not show any regional wall motion abnormalities, ejection fraction around 60%, grade 1/4 diastolic dysfunction. Carotid ultrasound to follow Lipid panel grossly unremarkable with HDL of 33 and HbA1c 5% Continue aspirin and fenofibrate 6. Coronary artery disease involving [place] coronary artery of [place] heart without angina pectoris: As mentioned above 7. Mixed hyperlipidemia: Patient has HMG Co. a reductase inhibitor therefore statins are contraindicated Continue fenofibrate Lipid panel reviewed 8. Gastric reflux: continue PPI daily 9. Neuropathic pain of both legs: Gabapentin 400 mg 3 times daily to continue 10. COPD (chronic obstructive pulmonary disease): Continue home medication glycopyrrolate 1 mg p.o. 3 times daily DuoNebs as needed for shortness of breath Monitor pulse ox 11. Cigarette smoker: Patient currently not having any urges or cravings Continue to monitor If the patient requires, to apply nicotine patch or nicotine alternatives 12. Hypothyroidism: Continue home dose of levothyroxine 13. Essential (primary) hypertension: Continue home dose of carvedilol 6.25 mg twice daily and losartan 25 mg daily Monitor blood pressure 14. Anxiety, generalized: Continue home dose of paroxetine 30 mg daily Plan: VTE: Enoxaparin 40 mg subcut PDMP PDMP Reviewed: Not Reviewed Attestations 2 Medical Necessity Statement*: Patient will stay over the weekend for the arrangement of her disposition to [place] since she left [place] earlier and she is unsafe to be discharged on her own self considering her physical deconditioning and altered mentation Time Spent in Patient Care: 16 - 35 minutes (>than 50% of time sp ent in counselling and/or direct pt care on unit) . Other Attestations: Patient condition has been discussed at length with the patient/family, I have independently reviewed the chart labs imaging/diagnostics/EKG. the goals of care and code status with the patient/family/NOK/legal primary care sales representative, and documented accordingly. I have reconciled the medications after confirmation/comorbidities/current clinical condition. The management has been done according to the current clinical condition with respect to patient goals of care and based on recommendations/guidelines. The patient/family has been informed about the current condition and further plan of care. Agreed with the plan of care and understood without any language barrier. Every effort was made to ensure accuracy of animal nutrition consultant. Any obvious errors or omissions should be clarified with the author of the document. Coding Level of Care Code 64836 Diagnoses Focal onset cognitive epileptic seizure G40.209 Encephalopathy, unspecified type G93.40 Encephalopathy type: unspecified encephalopathy COVID-19 U07.1 History of anoxic brain injury Z86.69 CHF (congestive heart failure), NYHA class III I50.9 Congestive heart failure chronicity: chronic Coronary artery disease involving [place] coronary artery of [place] heart without angina pectoris I25.10 Associated angina: without angina Coronary Disease-Associated Artery/Lesion type: [place] artery [place] vs. transplanted heart: [place] heart Mixed hyperlipidemia E78.2 Gastric reflux K21.9 Neuropathic pain of both legs G57.93 COPD (chronic obstructive pulmonary disease) J44.9 Cigarette smoker F17.210 Hypothyroidism E03.9 Essential (primary) hypertension I10 Anxiety, generalized F41.1
--- NOTE | 2025-10-13 18:26 | USCV_ITS ---
Viola Ennis Age: 65 Gender: F : 1960 Exam Date: 10/13/2025 00:30 Ordering Phys: Brenton Garcia MD Technologist: SERGIO Exam Location: [facility] [place] Indication: Stroke workup, History of prior CVA, COPD, CAD, HLD BP: 177 / 91 HR: 61 Rhythm: Sinus Technical Quality: Adequate MEASUREMENTS (Male / Female) Normal Values 2D ECHO LV Diastolic Diameter PLAX 4.0 cm 4.2 - 5.9 / 3.9 - 5.3 cm IVS Diastolic Thickness 1.8 cm 0.6 - 1.0 / 0.6 - 0.9 cm IVS Systolic Thickness 1.6 cm LVPW Diastolic Thickness 1.5 cm 0.6 - 1.0 / 0.6 - 0.9 cm LVPW Systolic Thickness 1.5 cm LVOT Diameter 1.8 cm LV Ejection Fraction 2D Teich 56.4 % LV Ejection Fraction MOD 4C 62.3 % LV Ejection Fraction MOD 2C 65.7 % LV Ejection Fraction 2C AL 66.8 % LA Diameter 2.5 cm Aorta at Sinotubular Diameter 2.5 cm IVC Diameter 1.7 cm DOPPLER AV Peak Velocity 120.0 cm/s LVOT Peak Velocity 117.0 cm/s AV Area Cont Eq vti 2.2 cm squared AV Area Cont Eq pk 2.6 cm squared MV Peak Velocity 92.0 cm/s MV Area PHT 3.0 cm squared Mitral E to A Ratio 0.8 TV Peak E Velocity 33.0 cm/s PV Peak Velocity 95.0 cm/s FINDINGS Left Ventricle Normal left ventricular size, systolic function and wall thickness, with no regional wall motion abnormalities. Left ventricular ejection fraction is estimated at 60 %. Grade I/IV diastolic dysfunction (abnormal relaxation filling pattern), normal to mildly elevated filling pressures. Right Ventricle Normal right ventricular size and systolic function. Right Atrium Normal right atrial size. Left Atrium Normal left atrial size. IA Septum Normal appearance of the interatrial septum. Mitral Valve Normal mitral valve structure. No mitral valve stenosis or regurgitation. Aortic Valve Normal aortic valve structure. No aortic valve stenosis or regurgitation. Tricuspid Valve Normal tricuspid valve structure. No tricuspid valve stenosis or regurgitation. Normal pulmonary pressure. Pulmonic Valve Normal pulmonic valve structure. No pulmonic valve stenosis or regurgitation. Pericardium No pericardial effusion. Aorta Normal diameter of the aortic root and ascending thoracic aorta. IVC Normal IVC diameter. CONCLUSIONS Normal left ventricular size, systolic function and wall thickness, with no regional wall motion abnormalities. Left ventricular ejection fraction is estimated at 60 %. Grade I/IV diastolic dysfunction (abnormal relaxation filling pattern), normal to mildly elevated filling pressures. No significant valvular abnormalities. There is no pericardial effusion. Right atrial pressure is around 5 mm of mercury. Julio César Castro MD (Electronically Signed) Final Date: 13 October 2025 09:51 S
[2025-10-13] MEDS: remdesivir 200 MG in sodium chloride 0.9% (100 ml) 60 ML 100 MG IV (21:07)
[2025-10-14] VITALS (12 sets, daily range): BP systolic 142–185; BP diastolic 84–103; PULSE 62–91; RESP 15–18; TEMP 36.3–37.2; O2SAT 91–94
[2025-10-14] MEDS: dextrose 5%-sod chloride 0.9% 1,000 ML 100 ML IV ×3 (04:21→22:01)
[2025-10-14] MEDS: LOSARTAN 25 MG TABLET PO (04:59)
[2025-10-14 05:15] LABS: Hematocrit 36.0 % (36-47); Hemoglobin 11.90 g/dL (11.27-16.99); Mean Corpuscular HGB Conc 33.1 g/dL (30-55); Mean Corpuscular Hemoglobin 31.9 pg (27-33); Mean Corpuscular Volume 96.5 fl (85-98); Nucleated Red Blood Cells % 0 %; Platelet Count 109 10^3/cmm (157-399); Red Blood Count 3.73 10^6/uL (3.85-5.65); White Blood Count 3.85 10^3/uL (3.29-11.43)
[2025-10-14 05:31] LABS: Alanine Aminotransferase 11 U/L (0-33); Albumin Level 2.9 g/dL (3.5-5.2); Alkaline Phosphatase 36 U/L (35-105); Anion Gap 11.4 (5-19); Aspartate Amino Transferase 21 U/L (0-32); Blood Urea Nitrogen 10 mg/dL (8-23); Calcium 7.9 mg/dL (8.5-10.5); Carbon Dioxide 23 mmol/L (22-29); Chloride 104 mmol/L (98-107); Globulin 2.2 g/dL (1.3-4.6); Glucose 86 mg/dL (65-115); Magnesium 1.7 mg/dL (1.7-2.3); Osmolality Calculated 278 mOsm/kg (285-295); Potassium 3.4 mmol/L (3.5-5.1); Sodium 135 mmol/L (136-145); Total Protein 5.1 g/dL (6.6-8.7)
[2025-10-14] MEDS: pantoprazole 40 mg SDV IVP (06:42)
[2025-10-14] MEDS: levETIRAcetam 1,000 MG/100 ML PREMIX 400 MG IV ×2 (09:09→20:28)
--- NOTE | 2025-10-14 17:18 | P.PN_ITS ---
Subjective 2 Subjective: Patient was seen in the morning Patient is COVID-positive, without any symptoms, started on remdesivir based on patient comorbidities and recommendation Overall patient is stable and more awake. No acute concerns Vitals/I&O/Wt Last Vital Signs Temp 98 F 10/14/25 15:59 Pulse 91 10/14/25 15:59 Resp 18 10/14/25 15:59 BP 185/88 10/14/25 15:59 Pulse Ox 91 10/14/25 15:59 O2 Del Method Room Air 10/14/25 15:59 O2 Flow Rate 1 10/13/25 09:17 10/14/25 10/14/25 10/14/25 06:59 14:59 22:59 Intake Total 1220 / 3386.667 1541.667 / 1541.667 Output Total 1000 / 3200 700 / 700 Balance 220 / 488.234 1516.667 / 1541.667 -700 / 841.667 Weight last 48 hrs Weight 54.5 kg Physical Exam 2 Narrative: General: Alert oriented to person and place but not to time, on room air saturating 91% and above, malnourished and physically deconditioned HEENT: Normocephalic, atraumatic, grossly unremarkable exam Cardio: normal rate rhythm, normal S1-S2 without any murmurs, rubs, or gallops and JVD normal Respiratory: normal vascular breathing on auscultation without any wheezes, stridor, rhonchi GI: Abdomen soft, nontender, nondistended, normoactive bowel sounds present all 4 quadrants, Neuro: The patient looks physically deconditioned however able to move all extremities no sensory or gross motor deficit, gait and balance unable to assess if the patient is unable to hold her weight or balance Behavior: Appropriate, Extremities: Adequate palpable pulses, no edema or cyanosis observed. Urinary Catheter Management: Zimmerman: Cath Placed During This Visit: yes Reason for Continuing Indwelling Catheter: Accurate Measurement of Urinary Output in Critically Ill Patients Urinary Catheter Date of Insertion: 10/11/25 Urinary Catheter Time of Insertion: 14:00 Data 10/14/25 05:06 10/14/25 05:06 A&P Assessment and plan 1. Focal onset cognitive epileptic seizure: Patient has been reviewed by the neurologist, and I have personally discussed the case with Dr. Mei who mentioned that the patient was previously admitted around the time of June 2025 and there was suspected high likelihood of seizures and plan of Keppra was there however the patient was transferred to another facility. Continue Keppra 1 g twice daily as per neurology plan and convert him to oral tablets at the time of discharge The patient current presentation does not coincide with TIA or stroke therefore TIA or stroke has been ruled out based on diagnostic workup as per discussion with the neurology EEG showed bizarre repetitive behavior suggesting seizures, refer to the report and provider notes of Dr. Mei for full study details Prolactin levels were not raised and UTOX positive for marijuana Blood cultures 1 bottle showed Staphylococcus epidermidis possible contamination, there are no clinical signs and symptoms of infection. Therefore no indication for antibiotics in her case. 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 Encephalopathy, unspecified type: Patient presented with altered mentation and as per the family no normal was on 10/10/2025 around [address] was unremarkable for any acute insult High likelihood of seizures 1 g Keppra twice daily Neuro referral at the time of discharge 3. COVID-19: Patient found to have COVID-19 positive, asymptomatic Based on patient comorbidities, to start remdesivir according to COVID-19 protocol Airborne and contact precautions to be applied Monitor pulse ox and rest of the hemodynamics 4. History of anoxic brain injury: Currently stable, having altered mentation however patient is alert Neurochecks every shift Based on the patient previous presentation as per retrospective notes there might be a possibility of stroke however it was more of his seizures affect, considering the benefit of the patient to start the patient on aspirin since she is not on aspirin. Fall precautions OT PT evaluation 5. CHF (congestive heart failure), NYHA class III: The patient is documented to have congestive heart failure however I did not find any echo, considering patient previous history of possible TIA or stroke and current presentation of seizures Echo did not show any regional wall motion abnormalities, ejection fraction around 60%, grade 1/4 diastolic dysfunction. Carotid ultrasound to follow Lipid panel grossly unremarkable with HDL of 33 and HbA1c 5% Continue aspirin and fenofibrate 6. Coronary artery disease involving [place] coronary artery of squaxin heart without angina pectoris: As mentioned above 7. Mixed hyperlipidemia: Patient has HMG Co. a reductase inhibitor therefore statins are contraindicated Continue fenofibrate Lipid panel reviewed 8. Gastric reflux: continue PPI daily 9. Neuropathic pain of both legs: Gabapentin 400 mg 3 times daily to continue 10. COPD (chronic obstructive pulmonary disease): Continue home medication glycopyrrolate 1 mg p.o. 3 times daily DuoNebs as needed for shortness of breath Monitor pulse ox 11. Cigarette smoker: Patient currently not having any urges or cravings Continue to monitor If the patient requires, to apply nicotine patch or nicotine alternatives 12. Hypothyroidism: Continue home dose of levothyroxine 13. Essential (primary) hypertension: Continue home dose of carvedilol 6.25 mg twice daily and losartan 25 mg daily Monitor blood pressure 14. Anxiety, generalized: Continue home dose of paroxetine 30 mg daily Plan: VTE: Enoxaparin 40 mg subcut PDMP PDMP Reviewed: Not Reviewed Attestations 2 Medical Necessity Statement*: [facility] and further case management coordinator on board. Continue to monitor for seizures/altered mentation and continue management of COVID-19 Time Spent in Patient Care: 16 - 35 minutes (>than 50% of time sp ent in counselling and/or direct pt care on unit) . Other Attestations: Patient condition has been discussed at length with the patient/family, I have independently reviewed the chart labs imaging/diagnostics/EKG. the goals of care and code status with the patient/family/NOK/legal factory representative, and documented accordingly. I have reconciled the medications after confirmation/comorbidities/current clinical condition. The management has been done according to the current clinical condition with respect to patient goals of care and based on recommendations/guidelines. The patient/family has been informed about the current condition and further plan of care. Agreed with the plan of care and understood without any language barrier. Every effort was made to ensure accuracy of audit partner. Any obvious errors or omissions should be clarified with the author of the document. Coding Level of Care Code 82431 Diagnoses Focal onset cognitive epileptic seizure G40.209 Encephalopathy, unspecified type G93.40 Encephalopathy type: unspecified encephalopathy COVID-19 U07.1 History of anoxic brain injury Z86.69 CHF (congestive heart failure), NYHA class III I50.9 Congestive heart failure chronicity: chronic Coronary artery disease involving squ[place] coronary artery of squ[place] heart without angina pectoris I25.10 Coronary Disease-Associated Artery/Lesion type: squaxin artery [place] vs. transplanted heart: squaxin heart Associated angina: without angina Mixed hyperlipidemia E78.2 Gastric reflux K21.9 Neuropathic pain of both legs G57.93 COPD (chronic obstructive pulmonary disease) J44.9 Cigarette smoker F17.210 Hypothyroidism E03.9 Essential (primary) hypertension I10 Anxiety, generalized F41.1
[2025-10-14] MEDS: remdesivir 100 MG in sodium chloride 0.9% (100 ml) 80 ML IV (17:37)
[2025-10-14] MEDS: LOSARTAN 25 MG TABLET 50 MG PO (19:40)
[2025-10-15] VITALS (13 sets, daily range): BP systolic 144–174; BP diastolic 79–91; PULSE 64–87; RESP 16–18; TEMP 36.2–36.8; O2SAT 91–96
[2025-10-15] MEDS: LOSARTAN 25 MG TABLET 50 MG PO (04:27)
[2025-10-15 04:43] LABS: Hematocrit 36.1 % (36-47); Hemoglobin 11.80 g/dL (11.27-16.99); Mean Corpuscular HGB Conc 32.7 g/dL (30-55); Mean Corpuscular Hemoglobin 31.4 pg (27-33); Mean Corpuscular Volume 96.0 fl (85-98); Nucleated Red Blood Cells % 0 %; Platelet Count 85 10^3/cmm (157-399); Red Blood Count 3.76 10^6/uL (3.85-5.65); White Blood Count 3.62 10^3/uL (3.29-11.43)
[2025-10-15 05:07] LABS: Alanine Aminotransferase 9 U/L (0-33); Albumin Level 2.9 g/dL (3.5-5.2); Alkaline Phosphatase 36 U/L (35-105); Anion Gap 10.4 (5-19); Aspartate Amino Transferase 17 U/L (0-32); Blood Urea Nitrogen 10 mg/dL (8-23); Calcium 7.9 mg/dL (8.5-10.5); Carbon Dioxide 24 mmol/L (22-29); Chloride 105 mmol/L (98-107); Globulin 2.1 g/dL (1.3-4.6); Glucose 85 mg/dL (65-115); Osmolality Calculated 280 mOsm/kg (285-295); Potassium 3.4 mmol/L (3.5-5.1); Sodium 136 mmol/L (136-145); Total Protein 5.0 g/dL (6.6-8.7)
[2025-10-15] MEDS: levETIRAcetam 1,000 MG/100 ML PREMIX 400 MG IV (08:16)
[2025-10-15] MEDS: dextrose 5%-sod chloride 0.9% 1,000 ML 100 ML IV (13:30)
[2025-10-15] MEDS: remdesivir 100 MG in sodium chloride 0.9% (100 ml) 80 ML IV (16:28)
--- NOTE | 2025-10-15 16:42 | P.PN_ITS ---
Subjective 2 Subjective: Patient was seen in the morning, wide-awake and alert Patient is COVID-positive, asymptomatic, on remdesivir based on patient comorbidities and recommendation for total 5 days till 10/17/2025 Patient labs showed thrombocytopenia worsening after initiation of Keppra to hold the Keppra and enoxaparin in the light of worsening thrombocytopenia SCD to apply Call neurologist however did not get any reply possibly due to weekend, tomorrow to reconsult and discuss further plan. Patient did not voice any complaints and currently stable Vitals/I&O/Wt Last Vital Signs Temp 97.5 F L 10/15/25 15:19 Pulse 74 10/15/25 15:19 Resp 18 10/15/25 15:19 BP 174/90 10/15/25 15:19 Pulse Ox 93 10/15/25 15:19 O2 Del Method Room Air 10/15/25 15:19 O2 Flow Rate 1 10/13/25 09:17 10/15/25 10/15/25 10/15/25 06:59 14:59 22:59 Intake Total 1000 / 1000 Output Total 200 / 2350 Balance -200 / 284.602 6270 / 1000 Weight last 48 hrs Weight 48.761 kg Physical Exam 2 Narrative: General: Alert oriented to person and place but not to time, on room air saturating 91% and above, malnourished and physically deconditioned, no obvious signs of bleeding. HEENT: Normocephalic, atraumatic, grossly unremarkable exam Cardio: normal rate rhythm, normal S1-S2 without any murmurs, rubs, or gallops and JVD normal Respiratory: normal vascular breathing on auscultation without any wheezes, stridor, rhonchi GI: Abdomen soft, nontender, nondistended, normoactive bowel sounds present all 4 quadrants, Neuro: The patient looks physically deconditioned however able to move all extremities no sensory or gross motor deficit, gait and balance unable to assess if the patient is unable to hold her weight or balance Behavior: Appropriate, Extremities: Adequate palpable pulses, no edema or cyanosis observed. Urinary Catheter Management: Zimmerman: Cath Placed During This Visit: yes Reason for Continuing Indwelling Catheter: Accurate Measurement of Urinary Output in Critically Ill Patients Urinary Catheter Date of Insertion: 10/11/25 Urinary Catheter Time of Insertion: 14:00 Data 10/15/25 03:48 10/15/25 03:48 Micro: Microbiology 10/11/25 12:56 Blood Culture - Final Blood Staphylococcus epidermidis A&P Assessment and plan 1. Focal onset cognitive epileptic seizure: Patient has been reviewed by the neurologist, and I have personally discussed the case with Dr. Mie who mentioned that the patient was previously admitted around the time of June 2025 and there was suspected high likelihood of seizures and plan of Keppra was there however the patient was transferred to another facility. Continue Keppra 1 g twice daily as per neurology plan however is held in the light of thrombocytopenia which is worsening and to discuss on Thursday with the neurologist for this concern and considering alternatives? The patient current presentation does not coincide with TIA or stroke therefore TIA or stroke has been ruled out based on diagnostic workup as per discussion with the neurology EEG showed bizarre repetitive behavior suggesting seizures, refer to the report and provider notes of Dr. Mei for full study details Prolactin levels were not raised and UTOX positive for marijuana Blood cultures 1 bottle showed Staphylococcus epidermidis possible contamination, there are no clinical signs and symptoms of infection. Therefore no indication for antibiotics in her case. Electric Meter Reader neurochecks If there is any focal neurological deficit then consider repeat CT head and neurology recommendation Neurology referral at the time of discharge 2. Encephalopathy, unspecified type: Patient presented with altered mentation and as per the family no normal was on 10/10/2025 around [address] was unremarkable for any acute insult High likelihood of seizures 1 g Keppra twice daily was initiated and to hold at the moment since the patient is dropping her platelets Neuro referral at the time of discharge 3. Thrombocytopenia: Hold Keppra and enoxaparin in the light of dropping platelets No obvious signs of bleeding Continue to monitor platelets Neurology consulted, however did not get any answer. To consult tomorrow on Thursday to discuss about Keppra alternative? 4. COVID-19: Patient found to have COVID-19 positive, asymptomatic Discontinue contact/airborne isolation, continue droplet isolation Based on patient comorbidities, started remdesivir according to COVID-19 protocol till 10/17/2025 Monitor pulse ox and rest of the hemodynamics 5. History of anoxic brain injury: Currently stable, having altered mentation however patient is alert Neurochecks every shift Based on the patient previous presentation as per retrospective notes there might be a possibility of stroke however it was more of his seizures affect, considering the benefit of the patient to start the patient on aspirin since she is not on aspirin. Fall precautions OT PT evaluation 6. CHF (congestive heart failure), NYHA class III: The patient is documented to have congestive heart failure however I did not find any echo, considering patient previous history of possible TIA or stroke and current presentation of seizures Echo did not show any regional wall motion abnormalities, ejection fraction around 60%, grade 1/4 diastolic dysfunction. Carotid ultrasound did not show significant stenosis of carotids Lipid panel grossly unremarkable with HDL of 33 and HbA1c 5% Continue aspirin and fenofibrate 7. Coronary artery disease involving [place] coronary artery of [place] heart without angina pectoris: As mentioned above 8. Mixed hyperlipidemia: Patient has HMG Co. a reductase inhibitor therefore statins are contraindicated Continue fenofibrate Lipid panel reviewed 9. Gastric reflux: continue PPI daily 10. Neuropathic pain of both legs: Gabapentin 400 mg 3 times daily to continue 11. COPD (chronic obstructive pulmonary disease): Continue home medication glycopyrrolate 1 mg p.o. 3 times daily DuoNebs as needed for shortness of breath Monitor pulse ox 12. Cigarette smoker: Patient currently not having any urges or cravings Continue to monitor If the patient requires, to apply nicotine patch or nicotine alternatives 13. Hypothyroidism: Continue home dose of levothyroxine 14. Essential (primary) hypertension: Continue home dose of carvedilol 6.25 mg twice daily and losartan 25 mg daily Monitor blood pressure 15. Anxiety, generalized: Continue home dose of paroxetine 30 mg daily Plan: VTE: SCD since the patient is having worsening thrombocytopenia PDMP PDMP Reviewed: Not Reviewed Attestations 2 Medical Necessity Statement*: Patient will stay overnight for seizures requiring antiseizure medicines, arrangement of disposition to [place], worsening thrombocytopenia requiring further management and plan of care Time Spent in Patient Care: 16 - 35 minutes (>than 50% of time sp ent in counselling and/or direct pt care on unit) . Other Attestations: Patient condition has been discussed at length with the patient/family, I have independently reviewed the chart labs imaging/diagnostics/EKG. the goals of care and code status with the patient/family/NOK/legal help desk representative, and documented accordingly. I have reconciled the medications after confirmation/comorbidities/current clinical condition. The management has been done according to the current clinical condition with respect to patient goals of care and based on recommendations/guidelines. The patient/family has been informed about the current condition and further plan of care. Agreed with the plan of care and understood without any language barrier. Every effort was made to ensure accuracy of it application architect. Any obvious errors or omissions should be clarified with the author of the document. Coding Level of Care Code 49332 Diagnoses Focal onset cognitive epileptic seizure G40.209 Encephalopathy, unspecified type G93.40 Encephalopathy type: unspecified encephalopathy Thrombocytopenia D69.6 COVID-19 U07.1 History of anoxic brain injury Z86.69 CHF (congestive heart failure), NYHA class III I50.9 Congestive heart failure chronicity: chronic Coronary artery disease involving [place] coronary artery of [place] heart without angina pectoris I25.10 Coronary Disease-Associated Artery/Lesion type: [place] artery [place] vs. transplanted heart: [place] heart Associated angina: without angina Mixed hyperlipidemia E78.2 Gastric reflux K21.9 Neuropathic pain of both legs G57.93 COPD (chronic obstructive pulmonary disease) J44.9 Cigarette smoker F17.210 Hypothyroidism E03.9 Essential (primary) hypertension I10 Anxiety, generalized F41.1
[2025-10-16] VITALS (9 sets, daily range): BP systolic 146–179; BP diastolic 89–95; PULSE 66–77; RESP 16–18; TEMP 36.6–36.8; O2SAT 90–94
[2025-10-16] MEDS: dextrose 5%-sod chloride 0.9% 1,000 ML 100 ML IV ×2 (01:01→11:32)
[2025-10-16] MEDS: LOSARTAN 25 MG TABLET 50 MG PO (04:59)
[2025-10-16 06:16] LABS: Hematocrit 35.6 % (36-47); Hemoglobin 11.80 g/dL (11.27-16.99); Mean Corpuscular HGB Conc 33.1 g/dL (30-55); Mean Corpuscular Hemoglobin 31.7 pg (27-33); Mean Corpuscular Volume 95.7 fl (85-98); Nucleated Red Blood Cells % 0 %; Platelet Count 101 10^3/cmm (157-399); Red Blood Count 3.72 10^6/uL (3.85-5.65); White Blood Count 4.30 10^3/uL (3.29-11.43)
[2025-10-16 06:36] LABS: Alanine Aminotransferase 8 U/L (0-33); Albumin Level 3.1 g/dL (3.5-5.2); Alkaline Phosphatase 43 U/L (35-105); Anion Gap 11.3 (5-19); Aspartate Amino Transferase 18 U/L (0-32); Blood Urea Nitrogen 14 mg/dL (8-23); Calcium 8.0 mg/dL (8.5-10.5); Carbon Dioxide 24 mmol/L (22-29); Chloride 104 mmol/L (98-107); Globulin 2.0 g/dL (1.3-4.6); Glucose 113 mg/dL (65-115); Osmolality Calculated 283 mOsm/kg (285-295); Potassium 3.3 mmol/L (3.5-5.1); Sodium 136 mmol/L (136-145); Total Protein 5.1 g/dL (6.6-8.7)
[2025-10-16] MEDS: ondansetron 2 mg/ML SDV 2 mL 4 MG IVP (11:31)
--- NOTE | 2025-10-16 12:24 | PC.NURSE ---
2 prescriptions sent to [facility]. Printed [facility] prescription for Dr. Garcia to sign.
--- NOTE | 2025-10-16 13:01 | PC.SOCIAL ---
IMM Updated Updated pt on IMM. No questions voiced. Provided pt a copy. Initialed, dated, & time copy in chart.
--- NOTE | 2025-10-16 13:46 | PC.OT ---
Pt. was put off until this afternoon secondary to refusing PT this morning. Attempted however; she reports that she is too weak and nauseous.
--- NOTE | 2025-10-16 22:00 | P.DS_ITS ---
Discharge Providers Date of Admission: 10/11/25 15:35 Date of Discharge: October 16, 2025 Attending Provider at Admission: Sea Foley Attending Provider at Discharge: Brenton Garcia MD Primary Care Provider: TONI Fritz Diagnoses at Discharge Discharge Diagnosis 1. Focal onset cognitive epileptic seizure: 2. Encephalopathy, unspecified type: 3. Thrombocytopenia: 4. COVID-19: 5. History of anoxic brain injury: 6. CHF (congestive heart failure), NYHA class III: 7. Coronary artery disease involving lone pine coronary artery of lone pine heart without angina pectoris: 8. Mixed hyperlipidemia: 9. Gastric reflux: 10. Neuropathic pain of both legs: 11. COPD (chronic obstructive pulmonary disease): 12. Cigarette smoker: 13. Hypothyroidism: 14. Essential (primary) hypertension: 15. Anxiety, generalized: Reason for Visit Reason for Visit: Weakness Brief History: As per the previous retrospective notes and the admitting physician note Viola Ennis is a 65 year old female with pmhx of COPD, CHF, CAD, HLD, GERD, hypothyroidism, anxiety, previous brainstem stroke, and anoxic brain injury present today via EMS w/ c/o AMS. Patient presents today having left [facility] AMA 3 days ago w/ AMS-only answering yes/no questions. Family reports last known normal was 10/10/2025 around 0700. Due to mental status and no family present at bedside unable to complete ROS. Patient to be admitted inpatient with hospitalist services and neurology consult for further medical management and care. While in ED a CBC, CMP, ABG, troponin series, lipase, UA, and toxicology were obtained, reviewed and results as follows: CBC unremarkable, CMP unremarkable, ABG: pH 7.48, pCO2 34.5, pO2 59, base excess 2.3. Baseline troponin 42, 2-hour troponin 44.02, delta troponin T 2.02. Lipase 27. UA: Negative. Toxicology positive for marijuana. Blood cultures obtained, pending. While in ED patient received following medications: NS at 100ml/hr. Hospital Course Hospital Course During patient hospital stay neurology was consulted as the patient had altered mentation and there was also possibility of seizures. CT head was unremarkable for any acute insult. EEG was done that showed bizarre repetitive pattern coinciding with seizures. The patient presentation did not coincide with TIA or stroke at this presentation. However based on the previous presentation which could have been TIA, the patient was started on aspirin. Prolactin levels were not raised and UTOX was positive for marijuana. The patient also had blood cultures sent and showed only Staph epidermidis which was more of a contamination. After discussing with the neurology patient clinical presentation signs and symptoms it was decided to start the patient on Keppra twice daily. During her hospital stay the patient dropped her platelets and Keppra was held, her platelets improved, and later switched to lacosamide 100 mg twice daily. She was also found to have COVID-19 positive but it was asy mptomatic and patient received treatment accordingly and her hospital course was unremarkable. Rest of the comorbidities were managed accordingly. During the hospital stay patient improved significantly and was discharged to [facility] after having director of casework services on board and arrangement. Medications were reconciled after confirmation and according to patient comorbidities and appropriate follow-ups and referrals were provided at the time of discharge. Patient condition has been discussed at length with the patient/family, I have independently reviewed the chart labs imaging/diagnostics/EKG. the goals of care and code status with the patient/family/NOK/legal field representative/health education, and documented accordingly. The management has been done according to the current clinical condition with respect to patient goals of care and based on recommendations/guidelines. The patient/family has been informed about the current condition and further plan of care. Agreed with the plan of care and understood without any language barrier. Every effort was made to ensure accuracy of hospice clinical manager. Any obvious errors or omissions should be clarified with the author of the document. Physical Exam Narrative: General: Alert oriented to person and place but not to time, on room air saturating 91% and above, malnourished and physically deconditioned, no obvious signs of bleeding. HEENT: Normocephalic, atraumatic, grossly unremarkable exam Cardio: normal rate rhythm, normal S1-S2 without any murmurs, rubs, or gallops and JVD normal Respiratory: normal vascular breathing on auscultation without any wheezes, stridor, rhonchi GI: Abdomen soft, nontender, nondistended, normoactive bowel sounds present all 4 quadrants, Neuro: The patient looks physically deconditioned however able to move all extremities no sensory or gross motor deficit, gait and balance unable to assess if the patient is unable to hold her weight or balance Behavior: Appropriate, Extremities: Adequate palpable pulses, no edema or cyanosis observed. Urinary Catheter Management: Zimmerman: Cath Placed During This Visit: yes, but has since been removed by the nurse Reason for Continuing Indwelling Catheter: Decision to DC Catheter Urinary Catheter Date of Insertion: 10/11/25 Urinary Catheter Time of Insertion: 14:00 Date Urinary Catheter Removed: 10/16/25 Time Urinary Catheter Discontinued: 00:44 Discharge Data Studies Completed and Pending Completed Studies During Hospitalization Category Date Time Status CT abdomen pelvis wo con [id number] Stat Cat Scan 10/11/25 15:[address] head wo con* [id number] Stat Cat Scan 10/11/25 13:44 Completed XR chest 1V portable [id number] Routine Exams 10/13/25 09:44 Completed XR chest 1V portable [id number] Stat Exams 10/11/25 12:39 Completed CV carotid duplex BI* [id number] Routine Ultrasound 10/12/25 18:26 Completed CV. echo complete* [id number] Routine Ultrasound 10/13/25 18:26 Completed Radiology Impressions Head CT 10/11/25 13:44 IMPRESSION: 1. No evidence of intracranial hemorrhage or mass effect. 2. LEFT maxillary sinusitis. 3. No acute intracranial findings. Abdomen/Pelvis CT 10/11/25 15:01 IMPRESSION: 1. No acute findings. 2. Prominently distended bladder despite the presence of a Zimmerman catheter. If the catheter was clamped prior to the CT scan this is to be expected. If not, the catheter may be clogged. Chest X-Ray 10/13/25 09:44 Impression: Atherosclerosis. Laboratory Results WBC 4.30 10^3/uL (3.29-11.43) 10/16/25 05:31 RBC 3.72 10^6/uL (3.85-5.65) L 10/16/25 05:31 Hgb 11.80 g/dL (11.27-16.99) 10/16/25 05:31 Hct 35.6 % (36-47) L 10/16/25 05:31 MCV 95.7 fl (85-98) 10/16/25 05:31 MCH 31.7 pg (27-33) 10/16/25 05:31 MCHC 33.1 g/dL (30-55) 10/16/25 05:31 RDW 13.2 % (12.1-15.1) 10/16/25 05:31 Plt Count 101 10^3/cmm (157-399) L 10/16/25 05:31 MPV 11.4 fL (7.4-10.4) H 10/16/25 05:31 Neut % (Auto) 67.2 % 10/16/25 05:31 Lymph % (Auto) 24.7 % 10/16/25 05:31 [place] % (Auto) 6.7 % 10/16/25 05:31 Eos % (Auto) 0.9 % 10/16/25 05:31 Baso % (Auto) 0.0 % 10/16/25 05:31 Neut # (Auto) 2.89 10^3/uL (1.8-7.7) 10/16/25 05:31 Lymph # (Auto) 1.1 10^3/uL (0.8-4.8) 10/16/25 05:31 [place] # (Auto) 0.3 10^3/uL (0.2-0.9) 10/16/25 05:31 Eos # (Auto) 0.0 10^3/uL (0.0-0.8) 10/16/25 05:31 Baso # (Auto) 0.0 10^3/uL (0.0-0.1) 10/16/25 05:31 Nucleated RBC % (auto) 0 % 10/16/25 05:31 Nucleated RBCs # 0.0 /100WBC 10/16/25 05:31 Specimen Type Arterial 10/11/25 15:26 Sample Site Radial, left 10/11/25 15:26 ABG pH 7.48 (7.35-7.45) H 10/11/25 15:26 ABG pCO2 34.5 mmHg (35-45) L 10/11/25 15: ABG pO2 59.0 mmHg (80.0-100.0) L 10/11/25 15:26 ABG PO2/FiO2 Ratio 280 10/11/25 15:26 ABG HCO3 25.5 mmol/L (22-26) 10/11/25 15:26 ABG O2 Saturation 90.9 10/11/25 15:26 ABG Base Excess 2.3 mmol/L (-2.0-2.0) H 10/11/25 15:26 Yuriy Test Pos 10/11/25 15:26 A-a O2 Gradient 6.1 mmHg (5-10) 10/11/25 15:26 Hematocrit 46.1 % (37-47) 10/11/25 15:26 Hgb O2 Saturation 89.9 % (95-100) L 10/11/25 15:26 Carboxyhemoglobin 0.9 %THgb (0.4-20.1) 10/11/25 15:26 Methemoglobin 0.2 % (0.4-1.5) L 10/11/25 15:26 Total Hemoglobin 15.1 g/dL (12-16) 10/11/25 15:26 Sodium 138.0 mmol/L (131-143) 10/11/25 15:26 Potassium 3.7 mmol/L (3.5-5.0) 10/11/25 15:26 Glucose 91.0 mg/dL (70-115) 10/11/25 15:26 Ionized Calcium 1.2 mmol/L (1.1-1.4) 10/11/25 15:26 O2 Delivery Device Room air 10/11/25 15:26 FiO2 21.0 % 10/11/25 15:26 Power And Recovery Superintendent ID [place] 10/11/25 15:26 Sodium 136 mmol/L (136-145) 10/16/25 05:31 Potassium 3.3 mmol/L (3.5-5.1) L 10/16/25 05:31 Chloride 104 mmol/L (98-107) 10/16/25 05:31 Carbon Dioxide 24 mmol/L (22-29) 10/16/25 05:31 Anion Gap 11.3 (5-19) 10/16/25 05:31 BUN 14 mg/dL (8-23) 10/16/25 05:31 Creatinine 0.8 mg/dL (0.5-0.9) 10/16/25 05:31 GFR Calculation 72.2 mL/min (90-130) L 10/16/25 05:31 Glucose 113 mg/dL (65-115) 10/16/25 05:31 POC Glucose 87 mg/dL (70-110) 10/12/25 06:31 Estimat Average Glucose 97 10/12/25 05:12 Hemoglobin A1c 5.0 % (4.0-6.0) 10/12/25 05:12 Calculated Osmolality 283 mOsm/kg (285-295) L 10/16/25 05:31 Lactic Acid 1.4 mmol/L (0.5-2.2) 10/11/25 12:50 Calcium 8.0 mg/dL (8.5-10.5) L 10/16/25 05:31 Magnesium 1.7 mg/dL (1.7-2.3) 10/14/25 05:06 Total Bilirubin 0.4 mg/dL (0.15-1.2) 10/16/25 05:31 AST 18 U/L (0-32) 10/16/25 05:31 ALT 8 U/L (0-33) 10/16/25 05:31 Alkaline Phosphatase 43 U/L (35-105) 10/16/25 05:31 Ammonia 12 umol/L (11-51) 10/11/25 15:13 Troponin T Baseline 27 ng/L (0-10) H 10/13/25 09:24 Troponin T 60 Minute 27.47 ng/L (0-10) H 10/13/25 10:43 Delta Troponin T 0.47 ABS# (0-10) 10/13/25 10:43 Troponin T Hi Sens 6Hr 25.89 ng/L (0-10) H 10/13/25 15:50 Troponin T Hi Sens 6Hr Delta -1.11 ng/L (0-12) L 10/13/25 15:50 Total Protein 5.1 g/dL (6.6-8.7) L 10/16/25 05:31 Albumin 3.1 g/dL (3.5-5.2) L 10/16/25 05:31 Globulin 2.0 g/dL (1.3-4.6) 10/16/25 05:31 Triglycerides 148 mg/dL (0-150) 10/12/25 05:12 Cholesterol 142 mg/dL (0-200) 10/12/25 05:12 LDL Cholesterol, Calc 79 mg/dL (50-129) 10/12/25 05:12 HDL Cholesterol 33 mg/dL (60-100) L 10/12/25 05:12 LDL/HDL Ratio 2.39 RATIO (0.00-3.22) 10/12/25 05:12 Cholesterol/HDL Ratio 4.30 mg/dL (0.0-4.40) 10/12/25 05:12 Lipase 27 U/L (13-60) 10/11/25 12:50 Vitamin B12 267 pg/mL (232-1245) 10/11/25 14:02 Folate 6.5 ng/mL (4.8-37.3) 10/11/25 20:35 TSH 1.33 uIU/mL (0.27-4.20) 10/11/25 14:02 Prolactin 8.89 ng/mL (4.8-23.3) 10/12/25 05:12 Urine Color Yellow (Yellow) 10/11/25 13:10 Urine Appearance Clear (CLEAR) 10/11/25 13:10 Urine pH 7.5 (5-7) 10/11/25 13:10 Ur Specific [place] 1.015 (1.005-1.030) 10/11/25 13:10 Urine Protein 1+ (Negative) A 10/11/25 13:10 Urine Glucose (UA) Negative (Normal) 10/11/25 13:10 Urine Ketones Negative (Negative) 10/11/25 13:10 Urine Blood Negative (Negative) 10/11/25 13:10 Urine Nitrate Negative (Negative) 10/11/25 13:10 Urine Bilirubin Negative (Negative) 10/11/25 13:10 Urine Urobilinogen 0.2 mg/dL (Negative) 10/11/25 13:10 Ur Leukocyte Esterase Negative (Negative) 10/11/25 13:10 Urine RBC 3-5 /hpf (0-2) 10/11/25 13:10 Urine WBC 0-5 /hpf (0-5) 10/11/25 13:10 Ur Squamous Epith Cells 0-5 /hpf (0-5) 10/11/25 13:10 Calcium Oxalate Crystal 0-4 /hpf H 10/11/25 13:10 Amorphous Sediment Not Reportable 10/11/25 13:10 Urine Bacteria None seen /hpf (NONE) 10/11/25 13:10 Hyaline Casts 2.05 /lpf 10/11/25 13:10 Salicylates < 0.3 mg/dL (3-10) L 10/11/25 14:02 Urine Opiates Screen Negative ng/mL (Negative) 10/11/25 13:10 Acetaminophen < 5.0 ug/mL (10-30) L 10/11/25 14:02 Ur Barbiturates Screen Negative ng/mL (Negative) 10/11/25 13:10 Ur Phencyclidine Scrn Negative ng/mL (Negative) 10/11/25 13:10 Ur Amphetamines Screen Negative ng/mL (Negative) 10/11/25 13:10 U Benzodiazepines Scrn Negative ng/mL (Negative) 10/11/25 13:10 Urine Cocaine Screen Negative ng/mL (Negative) 10/11/25 13:10 U Marijuana (THC) Screen Positive ng/mL (Negative) H 10/11/25 13:10 Ethyl Alcohol < 10 mg/dL (0-10) 10/11/25 14:02 Adenovirus (PCR) Not detected (NOT DETECT) 10/13/25 12:07 C. pneumoniae DNA (PCR) Not detected (NOT DETECT) 10/13/25 12:07 Coronavirus 229E (PCR) Not detected (NOT DETECT) 10/13/25 12:07 Human Metapneumovir PCR Not detected (NOT DETECT) 10/13/25 12:07 Influenza A (H1) PCR Not detected (NOT DETECT) 10/13/25 12:07 Influ A (H1/09) PCR Not detected (NOT DETECT) 10/13/25 12:07 Influenza A (H3) PCR Not detected (NOT DETECT) 10/13/25 12:07 Influenza Type A (PCR) Not detected (NOT DETECT) 10/13/25 12:07 Influenza Type B (PCR) Not detected (NOT DETECT) 10/13/25 12:07 M. pneumoniae (PCR) Not detected (NOT DETECT) 10/13/25 12:07 Parainfluenza 1 (PCR) Not detected (NOT DETECT) 10/13/25 12:07 Parainfluenza 2 (PCR) Not detected (NOT DETECT) 10/13/25 12:07 Parainfluenza 3 (PCR) Not detected (NOT DETECT) 10/13/25 12:07 Parainfluenza 4 (PCR) Not detected (NOT DETECT) 10/13/25 12:07 RSV Type A (PCR) Not detected (NOT DETECT) 10/13/25 12:07 RSV Type B (PCR) Not detected (NOT DETECT) 10/13/25 12:07 Entero/Rhino (PCR) Not detected (NOT DETECT) 10/13/25 12:07 SARS-CoV-2 (PCR) Detected (NOT DETECT) A 10/13/25 12:07 Vitals Last Vital Signs Temp 98 F 10/16/25 15:06 Pulse 77 10/16/25 15:06 Resp 18 10/16/25 15:06 BP 164/93 10/16/25 15:06 Pulse Ox 93 10/16/25 15:06 O2 Del Method Room Air 10/16/25 11:05 O2 Flow Rate 1 10/13/25 09:17 Discharge Plan Discharge Patient Disposition: Xfer SNF Condition: Stable Prescriptions: New gabapentin 400 mg Capsule 400 mg PO TID 60 Days Qty: 180 0RF lacosamide [Vimpat] 50 mg Tablet 100 mg PO BID 60 Days Qty: 240 0RF Continued carvedilol [Coreg] 6.25 mg tablet 6.25 mg PO Q12H Qty: 180 1RF Rx Instructions: must administer with a meal fenofibrate micronized 134 mg capsule 134 mg PO DAILY@15 Qty: 90 1RF levothyroxine 50 mcg tablet 50 mcg PO DAILY@1500 Qty: 90 1RF Linzess 145 mcg capsule 145 mcg PO BEDTIME Qty: 90 1RF paroxetine HCl 30 mg tablet 30 mg PO DAILY Qty: 90 1RF (DME) BD Luer-Rae Syringe 3 mL 25 gauge x 1 syringe See Rx Instructions .ROUTE .MEDSUPPLY Qty: 5 0RF Rx Instructions: monthly terconazole 0.4 % cream 1 appful vaginal .at bedtime Qty: 45 0RF baclofen 10 mg tablet See Rx Instructions .ROUTE .COMPLEX Qty: 360 1RF Rx Instructions: Take 1 tablet by mouth in the morning, 1 tablet at 3pm, and 2 tablets at 10pm. glycopyrrolate [Robinul] 1 mg tablet 1 mg PO TID Qty: 90 2RF potassium gluconate 595 mg (99 mg) Tablet 595 mg PO TID@08,15,22 [id number] [Excedrin Extra Strength] 250-250-65 mg Tablet 1 tab PO Q6H PRN (Reason: Pain) omeprazole 20 mg Capsule,Delayed Release(Dr/Ec) 20 mg PO DAILY irbesartan 75 mg Tablet 75 mg PO DAILY Discontinued gabapentin 800 mg tablet 800 mg PO TID Qty: 360 1RF [place] OK for DC: Neurology Discharge Order = DC NOW: Discharge Order (Routine); Ordered 10/16/25 Ordered By: Brenton Garcia Referrals: [facility] [Outside] Gloria Mei MD [Physician, Neurology] - 09/04/26 9:00 am Referral Note: Hitesh Pal, SURVEY RESEARCH ASSOCIATE-C [Primary Care Provider, Family Practice] - 2 weeks Referral Note: post discharge follow up Discharge Diet: Advance as tolerated Discharge Activity: Resume usual activity and Limit activity as instructed Patient Instructions: Gabapentin (By mouth), Lacosamide (By mouth), Nirmatrelvir/Ritonavir (By mouth), Opioid Safety, Patient Portal & E[facility]ia Instructions Discharge Attestations Time Spent in Discharge Care*: greater than 30 min Specific Discharge Activities: educating patient, educating and/or supporting family/caregiver, discussing with pcp/other providers, discussing with director of casework services/social workers/dc planners, documenting/other paperwork and evaluating patient/reviewing data Time Spent in Smoking Cessation: 3 to 10 minutes Status at Discharge: Cognitive status at discharge: cognitively intact , Behavioral status at discharge: cooperative , Functional status at discharge: other assisted ambulation , Overall status at discharge: patient is back to baseline Quality Metrics Clinical Quality Measures [ No reported AMI, CVA or VTE this stay] Coding Level of Care Code Acute Code for Chg Fwd Diagnoses Focal onset cognitive epileptic seizure G40.209 Encephalopathy, unspecified type G93.40 Encephalopathy type: unspecified encephalopathy Thrombocytopenia D69.6 COVID-19 U07.1 History of anoxic brain injury Z86.69 CHF (congestive heart failure), NYHA class III I50.9 Congestive heart failure chronicity: chronic Coronary artery disease involving lone [place] coronary artery of lone [place] heart without angina pectoris I25.10 Coronary Disease-Associated Artery/Lesion type: lone [place] artery [place] vs. transplanted heart: lone pine heart Associated angina: without angina Mixed hyperlipidemia E78.2 Gastric reflux K21.9 Neuropathic pain of both legs G57.93 COPD (chronic obstructive pulmonary disease) J44.9 Cigarette smoker F17.210 Hypothyroidism E03.9 Essential (primary) hypertension I10 Anxiety, generalized F41.1
== END 2025-10-16 14:50 | disposition skilled nursing facility (03) | DRG 100 ==
LOC: ER 13:48 → MEDSURG 15:53
PROVIDERS: Admitting Provider Internal Medicine; Emergency Provider Family Medicine; PCP Nurse Practitioner; Visit Provider Student in an Organized Health Care Education/Training Program
DX: G40.209 Localization-related (focal) (partial) symptomatic epilepsy and epileptic syndromes with complex partial seizures, not intractable, without status epilepticus (principal); U07.1 COVID-19; G93.40 Encephalopathy, unspecified; G93.1 Anoxic brain damage, not elsewhere classified; I13.0 Hypertensive heart and chronic kidney disease with heart failure and stage 1 through stage 4 chronic kidney disease, or unspecified chronic kidney disease; I50.30 Unspecified diastolic (congestive) heart failure; D69.6 Thrombocytopenia, unspecified; N18.9 Chronic kidney disease, unspecified; I25.10 Atherosclerotic heart disease of native coronary artery without angina pectoris; E78.2 Mixed hyperlipidemia; K21.9 Gastro-esophageal reflux disease without esophagitis; G62.9 Polyneuropathy, unspecified; J44.9 Chronic obstructive pulmonary disease, unspecified; F17.210 Nicotine dependence, cigarettes, uncomplicated; E03.9 Hypothyroidism, unspecified; F41.8 Other specified anxiety disorders; F32.A Depression, unspecified; E53.8 Deficiency of other specified B group vitamins; E55.9 Vitamin D deficiency, unspecified; M54.42 Lumbago with sciatica, left side; M54.41 Lumbago with sciatica, right side; M85.80 Other specified disorders of bone density and structure, unspecified site; M79.7 Fibromyalgia; K59.01 Slow transit constipation; Z87.01 Personal history of pneumonia (recurrent); Z86.73 Personal history of transient ischemic attack (TIA), and cerebral infarction without residual deficits; Z98.1 Arthrodesis status; Z82.49 Family history of ischemic heart disease and other diseases of the circulatory system
CPT/HCPCS: 36415; 36416; 36600; 51702; 70450; 71045; 74176; 80051; 80053; 80061; 80306; 80307; 81001; 82140; 82330; 82607; 82746; 82805; 82962; 83036; 83605; 83690; 83735; 84146; 84443; 84484; 85025; 87040; 87077; 87150; 87186; 87205; 87486; 87581; 87633; 92523; 92610; 93005; 93306; 93880; 95816; 96372; 97110; 97116; 97161; 97167; 97530; 99285; J0248; J1650; J1953; J2405; J2470; J7030; J7042; J9999